=== PATIENT | female | born 1945 | race Caucasian/White ===

== ENCOUNTER 2018-08-31 13:31 | Inpatient (IN) | payer MEDICARE, OTHER, SELFPAY ==
[2018-08-31 13:32] VITALS: BP 204/107; PULSE 102; RESP 18; TEMP 37.1; O2SAT 93; BMI 21.2
--- NOTE | 2018-08-31 15:03 | EKG12_ITS ---
Test Reason : Blood Pressure : / mmHG Vent. Rate : 089 BPM Atrial Rate : 089 BPM P-R Int : 126 ms QRS Dur : 076 ms QT Int : 350 ms P-R-T Axes : 041 052 040 degrees QTc Int : 425 ms Normal sinus rhythm with sinus arrhythmia Low voltage QRS Cannot rule out Anterior infarct (cited on or before 01-FEB-2006) Abnormal ECG Confirmed by LORETA ALEX, MELIDA ([id number]), news copy editor KOKO DERAS ([id number]) on 09/02/2018 4:26:49 PM Referred By: JOSEF Confirmed By:MELIDA KAN MD
--- NOTE | 2018-08-31 15:09 | ED.VISSUMM ---
- ER Visit Summary Date of Service: 08/31/18 Chief Complaint: Shortness of breath History of Present Illness: The patient is a 73 F who noted swelling to her right leg approximately 6 months or so ago after twisting her foot in the yard. She states is progressively been getting worse. She now has swelling noted to the left lower leg also and has developed shortness of breath over the past month or so. Patient states she is now the point where she is unable to lie flat because of her shortness of breath. She notes swollen cyst to the bilateral axilla and states her lower abdomen at the groin lines is swollen and distended. She has not seen a doctor in many years and thinks her last blood pressure check was approximately 20 years ago. She denies taking any medications at this time. Physical Examination: Blood pressure is 204/107, temperature 98.7, heart rate 102, respiratory rate 18, pulse ox 93% on room air. Patient is sitting upright in bed. She is speaking full sentences and in no acute distress. Head neck examination is unremarkable. Heart is regular rate and rhythm. No lung sounds are slightly diminished at the bases. Abdomen is soft with mild distention. No focal tenderness. She has palpable masses noted at both groin lines. Upper extremity examination is significant for palpable masses at the axilla bilaterally. Lower extremity examination reveals 3+ edema to the right leg and 2+ edema to the left leg. Test Results: EKG is sinus 89 with no sign of acute ischemia studies unremarkable. LFTs significant only for an alk phos of 119. BNP and troponin are negative. TSH is normal. Chest x-ray shows bilateral effusions, greater than left. Small dense nodules noted in the right lower lobe. Emergency Department Course and Treatment: Repeat evaluation patient is resting comfortably. Blood pressure at this time is 136/79 without any intervention. I recommended hospitalization. Patient will likely need thoracentesis to drain the fluid on her left lung. She will then likely require imaging to ensure no masses in her chest, axilla, or groins. At this time patient has great difficulty lying flat secondary to her pleural effusion and I feel this can be done after her thoracentesis. Treatment Plan: [] Disposition: Admit Impression: 1. Left pleural effusion 2. Bilateral axillary and groin masses This note was generated with [employer] dictation software. It may contain incorrect words, spelling, and punctuation that were not noted in review of the chart prior to signing ED Disposition - Plan for ED Patient: Chief Complaint: Shortness of Breath Referrals: Care Physician,No Primary [Primary Care Provider] -
[2018-08-31] MEDS: 0.9% Normal Saline 1,000 ML 15 ML IV ×2 (15:12→22:42)
[2018-08-31 15:13] VITALS: BP 191/77; PULSE 91
--- NOTE | 2018-08-31 15:20 | RAD_ITS ---
STUDY: X-RAY CHEST REASON FOR EXAM: Female, 73 years old. Increasing shortness of breath TECHNIQUE: PA and lateral COMPARISON: None. FINDINGS: There is a large left pleural effusion and consolidation of the left lower lobe as well as mild consolidation of the left upper lobe. There is a smaller effusion on the right with mild right basilar consolidation.. There is a small nodular opacity in the right lower lobe which appears relatively dense likely granuloma Normal size heart. Normal mediastinum and marco. Normal visualized pulmonary arteries. Normal visualized aortic arch and descending thoracic aorta. Dorsal spine demonstrates mild spondylosis.. Normal visualized ribs, clavicles, and shoulders. There is no demonstrated abnormality of the visualized soft tissue structures of the upper abdomen. RAD/Chest PA and Lateral IMPRESSION: Bilateral effusions greater on the left with bibasilar consolidation. Small dense nodule in the right lower lobe most likely granulomatous process Electronically Signed: Martín Madrid MD at 16:41 EST , Service support ,
[2018-08-31 15:31] LABS: Absolute Lymphocyte Count 0.58 X10^3/ul (0.83-4.51); Absolute Neutrophil Count 4.9 X10^3/uL (2.0-7.7); Basophil# 0.02 X10^3/uL; Basophil% 0.3 % (0-1); Eosinophil# 0.03 X10^3/uL; Eosinophils% 0.5 % (0-5); Hematocrit 39.7 % (37-47); Hemoglobin 12.9 g/dl (12.0-15.0); Lymphocyte # 0.58 X10^3/ul (4.0); Lymphocyte % 9.6 % (19-41); Mean Corp Hgb Conc 32.5 g/gl (32-36); Mean Corpuscular Hgb 27.6 pg (27.0-32.0); Mean Corpuscular Volume 84.8 fL (81-99); Mean Platelet Vol. 9.4 fl (6.2-12.0); Monocyte# 0.52 X10^3/uL; Monocyte% 8.6 % (0-10); Neutrophil # 4.91 X10^3/uL (2.7-7.7); Neutrophil % 80.8 % (47-70); Platelet Count 277 K/mm3 (150-450); RBC Distribution Width CV 15.9 % (11.6-14.6); Red Blood Count 4.68 M/mm3 (4.2-5.4); White Blood Count 6.1 K/mm3 (4.4-11.0)
[2018-08-31 15:33] LABS: Differential Indicated SCAN CRITERIA MET; POSITIVE COUNT NO; POSITIVE DIFFERENTIAL YES; POSITIVE MORPHOLOGY NO
[2018-08-31 15:45] LABS: AST(SGOT) 16 U/L (15-37); Alanine Aminotransfer ALT/SGPT 12 U/L (13-56); Albumin, Serum 3.2 g/dL (3.2-5.0); Alkaline Phosphatase 119 U/L (45-117); Anion Gap 7 (5-15); BUN 17 mg/dL (7-18); BUN/Creat Ratio 19.9 RATIO (10-20); Bilirubin, Direct 0.21 mg/dL (0.00-0.30); Calcium,Total 8.4 mg/dL (8.5-10.1); Chloride 108 mmol/L (98-107); Creatinine, Serum 0.85 mg/dL (0.55-1.02); EST Glomerular Filtration Rate 69 mL/min (>60); Est Glom Filt Rate - Afr Amer 84 mL/min (>60); Estimated Creatinine Clearance 48.76 ml/min; Globulin 2.9 g/dL (2.2-4.2); Glucose 91 mg/dL (74-106); Potassium 3.7 mmol/L (3.5-5.1); Protein, Total 6.1 g/dL (6.4-8.2); Sodium Level 142 mmol/L (136-145)
[2018-08-31 16:10] LABS: Differential Comment SCANNED
[2018-08-31 16:27] LABS: BNP,B-Type NATRIURETIC PEPTIDE 26.6 pg/mL (0-100)
[2018-08-31 17:00] VITALS: BP 136/79; PULSE 90; RESP 26; O2SAT 92
--- NOTE | 2018-08-31 18:10 | PCM.HP.STD ---
<Tri Chester - Last Filed: 08/31/18 18:50> Problem List (1) Pleural effusion, left Status: Acute History of Present Illness Date of Admission: 08/31/18 Chief Complaint: Shortness of breath The patient is a 73 year old F who presents emergency room due to shortness of breath. She denies cough, fever, chills. Patient states this is been developing over the last few months, worsened in the last week. She states she has been resting on pillows or sitting in a recliner to sleep at night. She complains of swelling in the bilateral axial area with left axial tumor as well as pelvic area swelling. Patient also complains of bilateral lower extremity swelling. She denies calf pain. She has not seen a doctor in over 20 years. Has not had any routine breast examination/Pap test, etc. She notes a remote thyroid issue which she states resolved without surgery. Denies any prior medical history. She does not take any daily medications. 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 Denies: Chills, Fever HEENT: Denies: Head Aches, Sinus Congestion, Sinus Drainage Cardiovascular: Reports: Edema - BLLE. Denies: Chest Pain, Light Headedness, Palpitations, Syncope Respiratory: Reports: Shortness of Breath. Denies: Cough, Sputum production Gastrointestinal: Denies: Abdominal Pain, Nausea, Vomiting Genitourinary: Denies: Dysuria Musculoskeletal: Denies: Joint Pain, Joint Tenderness Skin: Denies: Rash, Wounds Neurological: Denies: Numbness, Tingling, Focal weakness Psychiatric: Denies: Anxiety, Depression, Homicidal Ideations, Suicidal Ideations Hematologic/ Lymphatic: Denies: Easy Bruising, Easy Bleeding VTE Information - Inpt Only VTE Present on Admission: No VTE Mechan Device Prophylaxis: None VTE Pharm Prophylaxis ordered?: Yes Patient Problems: Active and Suspected Problems Pleural effusion, left (Acute) - Physical Exam General: Alert, Oriented x3, Cooperative, No apparent distress HEENT: Atraumatic, PERRLA, EOMI, Normocephalic Neck: Supple, No JVD, Negative Carotid Bruits Lungs: Diminished Cardiovascular: Regular rate, Regular Rhythm, Normal S1, Normal S2, No murmurs Abdomen: Bowel Sounds Present, Soft, Non Tender, Distended - Mild Skin: No rashes, No breakdown Lymphatic: - - Palpable masses bilateral axillary, bilateral groin. Neurological: Cranial nerves II-XII grossly intact, Neuro grossly intact Psych/Mental Status: Normal Affect, Appropriate Vital Signs Temp Pulse Resp BP Pulse Ox 98.7 F 90 26 H 136/79 H 92 08/31/18 13:32 08/31/18 17:00 08/31/18 17:00 08/31/18 17:00 08/31/18 17:00 Oxygen Delivery Method Room Air Weight: 119 lb 14.903 oz Body Mass Index (BMI) 21.2 Laboratory Tests Past 24 Hrs 08/31/18 08/31/18 08/31/18 15:15 15:15 15:15 WBC 6.1 RBC 4.68 Hgb 12.9 Hct 39.7 MCV 84.8 MCH 27.6 MCHC 32.5 RDW 15.9 H RDW Differential 49.0 H Plt Count 277 MPV 9.4 Immature Gran % (Auto) 0.200 Neut % (Auto) 80.8 H Lymph % (Auto) 9.6 L [place] % (Auto) 8.6 Eos % (Auto) 0.5 Baso % (Auto) 0.3 Absolute Neuts (auto) 4.9 Absolute Lymphs (auto) 0.58 L Total Counted Not Reportable Differential Comment SCANNED Sodium 142 Potassium 3.7 Chloride 108 H Carbon Dioxide 27.0 Anion Gap 7 BUN 17 Creatinine 0.85 Estim Creat Clear Calc 48.76 Est GFR (MDRD) Af Amer 84 Est GFR (MDRD) Non-Af 69 BUN/Creatinine Ratio 19.9 Glucose 91 Calcium 8.4 L Total Bilirubin 0.80 Direct Bilirubin 0.21 AST 16 ALT 12 L Alkaline Phosphatase 119 H Troponin I < 0.015 B-Natriuretic Peptide 26.6 Total Protein 6.1 L Albumin 3.2 Globulin 2.9 TSH 1.70 Assessment/Plan All Active Problems Pleural effusion, left (Acute) 1. Left pleural effusion-chest x-ray on admission with bilateral effusions, greater on the left with bibasilar consolidation. Small dense nodule in the right lower lobe. Ultrasound-guided thoracentesis with lab studies to differentiate transudative versus exudative. Pulmonary consult. 2. Lower extremity swelling/bilateral axial and groin masses-CT of chest and abdomen/pelvis following thoracentesis when able to lie flat. Stat duplex bilateral lower extremities. 3. Hypertensive urgency-blood pressure greater than 200 systolically on admission. Improved. Continue to monitor. PRN hydralazine for systolic greater than 160. DVT prophylaxis-Lovenox subcu. This patient was seen by [place] Kline under the supervision of Dr. Prescott. <Mat Prescott - Last Filed: 08/31/18 21:41> History of Present Illness Patient is short of breath for last few months along with gradually increasing leg swelling. Leg swelling started with right leg which progressed proximally about 2-3 months ago. Her left leg started swelling for past 1 week. Patient is short of breath and cannot lay flat. Patient denies any previous history of DVT/PE or family history of hypercoagulable disorder. Denies chronic cardiac condition or lung disease. Has hypothyroidism. [] Past Medical History Allergies No Known Allergies Allergy (Verified 08/31/18 13:35) Review of Systems Constitutional: Reports: Weight Change - -15 lbs Lost about 15 pounds in last 6 months, - HEENT: Denies: Head Aches, Sinus Congestion, Sinus Drainage Cardiovascular: Reports: Edema Respiratory: Reports: Shortness of Breath, Shortness of breath upon exertion Gastrointestinal: Reports: Nausea Genitourinary: Reports: Dysuria Musculoskeletal: Reports: Joint Tenderness. Denies: Joint Pain Skin: Denies: Rash Neurological: Denies: Numbness, Tingling Psychiatric: Denies: Anxiety, Depression, Homicidal Ideations, Suicidal Ideations Hematologic/ Lymphatic: Denies: Easy Bruising, Easy Bleeding VTE Information - Inpt Only VTE Present on Admission: No VTE Mechan Device Prophylaxis: None VTE Pharm Prophylaxis ordered?: Yes - Physical Exam General: Alert, Oriented x3, Cooperative HEENT: Atraumatic, PERRLA, EOMI, Normocephalic Neck: Supple, No JVD, Negative Carotid Bruits Lungs: Diminished - Air entry severely diminished in left lung., - - Large left pleural effusion more than two third of left lung Cardiovascular: Regular rate, Regular Rhythm, Normal S1, Normal S2, No murmurs Abdomen: Bowel Sounds Present, Soft, Non Tender, Distended Extremities: Capillary Refill Less than 3 Seconds, Edema - Bilateral lower extremity edema, right lower extremity more than left. Skin: No rashes, No breakdown Musculoskeletal: No Tenderness to Palpation of Joints or Extremities, Arthritic Changes, Muscle Wasting Lymphatic: - Neurological: Cranial nerves II-XII grossly intact, Neuro grossly intact Psych/Mental Status: Normal Affect, Appropriate Vital Signs Temp Pulse Resp BP Pulse Ox 98.5 F 89 18 161/90 H 92 08/31/18 19:43 08/31/18 19:43 08/31/18 19:43 08/31/18 19:43 08/31/18 19:43 Oxygen Delivery Method Room Air Weight: 118 lb Body Mass Index (BMI) 20.9 Laboratory Tests Past 24 Hrs 08/31/18 08/31/18 08/31/18 15:15 15:15 15:15 WBC 6.1 RBC 4.68 Hgb 12.9 Hct 39.7 MCV 84.8 MCH 27.6 MCHC 32.5 RDW 15.9 H RDW Differential 49.0 H Plt Count 277 MPV 9.4 Immature Gran % (Auto) 0.200 Neut % (Auto) 80.8 H Lymph % (Auto) 9.6 L [place] % (Auto) 8.6 Eos % (Auto) 0.5 Baso % (Auto) 0.3 Absolute Neuts (auto) 4.9 Absolute Lymphs (auto) 0.58 L Total Counted Not Reportable Differential Comment SCANNED Sodium 142 Potassium 3.7 Chloride 108 H Carbon Dioxide 27.0 Anion Gap 7 BUN 17 Creatinine 0.85 Estim Creat Clear Calc 48.76 Est GFR (MDRD) Af Amer 84 Est GFR (MDRD) Non-Af 69 BUN/Creatinine Ratio 19.9 Glucose 91 Calcium 8.4 L Total Bilirubin 0.80 Direct Bilirubin 0.21 AST 16 ALT 12 L Alkaline Phosphatase 119 H Troponin I < 0.015 B-Natriuretic Peptide 26.6 Total Protein 6.1 L Albumin 3.2 Globulin 2.9 TSH 1.70 Assessment/Plan This patient was seen in conjunction with Tri CALL. I have independently interviewed and examined the patient and reviewed pertinent history, examination findings, laboratory and plan of management. I have reviewed the note and agree with the documented findings with the few additional points. In brief, this is a 23-year-old female with no significant past medical history except hypothyroidism was admitted for progressive worsening of shortness of breath, bilateral lower extremity edema, right more than left and loss of weight. Ultrasound-guided thoracocentesis with pleural fluid analysis. 2D echo ordered. Venous Doppler of lower extremities ordered. I agree with the CT chest, abdomen and pelvis with IV contrast after thoracocentesis in order to rule out cause for bilateral axillary and groin lymphadenopathy and pelvic swelling, concerning for malignancy. This was discussed with the patient's daughters present in the room. I have discussed my assessment with Tri CALL and orders have been reviewed. Code Visit Inpatient E&M: 99370 Init Hosp L3
[2018-08-31 18:14] VITALS: BMI 20.9
--- NOTE | 2018-08-31 18:48 | VDLE_ITS ---
Reason For Study: BLE SWELLING R>L RIGHT LEFT GSV is normal. GSV is normal. FV is compressible, spontaneous, phasic, CFV is compressible, spontaneous, phasic, competent and demonstrates normal competent, and demonstrates normal augmentation. augmentation. POP V is compressible, spontaneous, phasic, FV is compressible, spontaneous, phasic, competent and demonstrates normal competent and demonstrates normal augmentation. augmentation. T/P Trunk is compressible. POP V is compressible, spontaneous, phasic, PTV is compressible. competent and demonstrates normal RT PerV is compressible. augmentation. CFV is compressible, spontaneous, phasic, T/P Trunk is compressible. competent and demonstrates homegenous wall PTV is compressible. thickening. LT PerV is compressible. Vascular mass noted in LT groin measuring Vascular mass(s) noted in RT groin, measuring approx 1.9 x 0.7 cm. approx 2.8 x 1.3 cm & a second one measuring > 4.0 x 2.3 cm. Procedure Exam performed portable in patient room. The study was technically difficult. A preliminary report was called and/or faxed to [facility]. <> Interpretation Summary No evidence for acute deep venous thrombosis bilateral lower extremities with patent and compressible bilateral great saphenous veins. Probable bilateral groin adenopathy--clinical correlation is indicated Right groin: 2.8 x 1.3cm Left groin: 1.9 x 0.7 cm Ordering Physician: KY Kline Referring Physician: TWILA PCP Performed By: Antoinette Dobson RDCS, RVT
[2018-08-31 19:43] VITALS: BP 161/90; PULSE 89; RESP 18; TEMP 36.9; O2SAT 92
--- NOTE | 2018-08-31 21:31 | ECHOD_ITS ---
Reason For Study: LG LEFT EFFUSION Procedure This was a 2D Doppler, Color Flow transthoracic echocardiogram. Technically difficult- pt sitting upright for exam due to SOB. The study was technically difficult. Exam performed portable in patient room. Left Ventricle Normal LV size. Left ventricular systolic function is normal. The estimated ejection fraction is 65 %. No evidence for diastolic dysfunction. No regional wall motion abnormalities noted. Right Ventricle Normal RV size. Normal systolic function. Atria Normal left atrium. Normal right atrium. No doppler evidence for ASD. Mitral Valve There is no mitral annular calcification. Normal mitral valve. Trivial mitral valve insufficiency. Tricuspid Valve Normal tricuspid valve. Mild tricuspid valve insufficiency. Right ventricular systolic pressure estimated to be 49 mmHg. Aortic Valve The aortic valve is not well visualized. Pulmonic Valve The pulmonic valve is not well visualized. Great Vessels Normal sized aortic root. Pericardium/Pleural Small pericardial effusion. There are no echocardiographic indications of cardiac tamponade. Echolucency c/w a large pleural effusion. MMode/2D Measurements & Calculations LVIDd: 3.9 cm IVSd: 0.94 cm Ao root diam: 2.8 cm LVIDs: 2.2 cm LVPWd: 0.95 cm RVDd: 3.7 cm FS: 44.7 % LAV(MOD-bp): 34.5 ml LA A4 area: 14.3 cm2 LA dimension(2D): 2.6 cm LAV(MOD-bp) Indexed: 22.3 ml/m2 LAV(MOD-sp2): 35.4 ml LAV(MOD-sp4): 34.0 ml RA A4 area: 14.3 cm2 Time Measurements MV dec time: 0.26 sec Doppler Measurements & Calculations MV E max collins: 73.3 cm/sec Lat Peak E' Collins: 8.8 cm/sec Med Peak E' Collins: 8.7 cm/sec MV A max collins: 106.9 cm/sec E/E' lat: 8.4 E/E' med: 8.4 MV E/A: 0.69 Ao V2 max: 162.3 cm/sec AI max collins: 488.0 cm/sec TR max collins: 318.9 cm/sec Ao max P.5 mmHg AI max P.3 mmHg TR max P.7 mmHg AI dec slope: 407.9 cm/sec2 AI P1/2t: 350.4 msec Interpretation Summary The study was technically difficult. Left ventricular systolic function is normal. The estimated ejection fraction is 65 %. Trivial mitral valve insufficiency. Mild tricuspid valve insufficiency. Small pericardial effusion. There are no echocardiographic indications of cardiac tamponade. Echolucency c/w a large pleural effusion. Right ventricular systolic pressure estimated to be 49 mmHg c/w moderate pulmonary hypertension. No evidence for diastolic dysfunction. Ordering Physician: Mat Prescott Performed By: Ariane Goodrich, MIRIAN, RVT
[2018-08-31 22:00] VITALS: PULSE 108
[2018-08-31 23:18] LABS: D-Dimer Quantitative (DVT/PE) 1.86 FEU/ug/m (0.27-0.49)
[2018-09-01] VITALS (20 sets, daily range): BP systolic 136–180; BP diastolic 72–105; PULSE 90–112; RESP 16–24; TEMP 36.6–37.2; O2SAT 88–97
--- NOTE | 2018-09-01 | FLU_PTH ---
PATIENT: NINFA SAM LOC: [facility] U#:[id number] AGE/SX: 73/F ROOM: [facility] RE08/31/[address]: Dr. Faye Dunbar MD : 1945 BED: 1 DIS: 09/02/2018 SPEC #: [id number] RECD: 09/01/18 14:21 STATUS: MALIA CELE #: [id number] SAVANNA: 09/01/18 00:[address]: Donn Gutierres DEPT: CYTOLOGY RECD BY: Evaristo Syed ENTERED: 09/01/18 14:52 SP TYPE: Fluid OTHR DR: MD Dr. Mat David MD No Primary Care Phys Tissues: THORACIC FLUID Procedures: Special Stain Group II Surgery Specimen Level IV Cytospin Fluid HEADER OPERATION: Ultrasound-guided left thoracentesis PRE-OP DIAGNOSIS: Left-sided effusion TISSUE SUBMITTED: Thoracentesis fluid for cytology DIAGNOSIS CYTOLOGY Thoracentesis fluid for cytology (cytospin and cell block): Negative for malignant cells. AM:yolanda 09/02/18 CYTOLOGY STUDY Slides are reviewed. CYTOLOGY GROSS Received is 115 ml of cloudy yellow fluid labeled with the patient's name and and designated per the requisition as thoracentesis. Submitted for cytology preparation including cell block. / 09/01/18 TC:5 CPT: 15715, 84252
[2018-09-01] MEDS: HEPARIN/D5w 25,000 UNITS 25,000 UNITS/250 ML IV.SOLN. 8 UNITS IV (02:14)
[2018-09-01] MEDS: Acetaminophen 325 MG Tablet 650 MG PO (02:35)
[2018-09-01 02:36] LABS: International Normalized Ratio 1.1; Partial Thromboplast Time 29.3 Seconds (24.1-36.2); Prothrombin Time (Protime)PT. 14.3 SECONDS (11.7-14.9)
--- NOTE | 2018-09-01 03:33 | NURSING ---
Talked to Loly in Radiology. They do not have a schedule for ultrasound. They come in at 0730 and can be reached at [phone]. that will be doing the procedure does not come in until 0800.
[2018-09-01] MEDS: hydrALAZINE 20 MG/ML Vial IV (06:25)
--- NOTE | 2018-09-01 06:50 | NURSING ---
Pt's family states she is feeling SOB and not feeling well. I checked pt's oxygen level and it was 88% on room air. CPS followed me into the room and checked pt's lungs and applied oxygen at 2L via n/c. Sats dwight to mid 90's. Pt is up in recliner with family present in room. Pt is anxious and asking about thoracentesis procedure.
--- NOTE | 2018-09-01 06:59 | CPS ---
was called to room, pt c/o SOB, Sat of 88%, R.T. applied 2lpm O2, RN will recheck pulse-ox. RN helped pt in to a chair to get her in better breathing position.
[2018-09-01 07:42] LABS: International Normalized Ratio 1.1; Prothrombin Time (Protime)PT. 14.4 SECONDS (11.7-14.9)
[2018-09-01 07:47] LABS: ALB/GLOB Ratio 0.9 RATIO (0.9-2.4); Anion Gap 10 (5-15); BUN 14 mg/dL (7-18); BUN/Creat Ratio 19.2 RATIO (10-20); Calcium,Total 8.3 mg/dL (8.5-10.1); Chloride 110 mmol/L (98-107); Creatinine, Serum 0.73 mg/dL (0.55-1.02); EST Glomerular Filtration Rate 83 mL/min (>60); Est Glom Filt Rate - Afr Amer 100 mL/min (>60); Estimated Creatinine Clearance 41.45 ml/min; Globulin 3.1 g/dL (2.2-4.2); Glucose 134 mg/dL (74-106); LDH 316 U/L (84-246); Potassium 3.4 mmol/L (3.5-5.1); Sodium Level 143 mmol/L (136-145)
[2018-09-01 07:56] LABS: Hematocrit 40.6 % (37-47); Hemoglobin 13.4 g/dl (12.0-15.0); Mean Corpuscular Hgb 28.2 pg (27.0-32.0); Mean Corpuscular Volume 85.5 fL (81-99); Mean Platelet Vol. 10.1 fl (6.2-12.0); Platelet Count 316 K/mm3 (150-450); RBC Distribution Width CV 16.2 % (11.6-14.6); RBC Distribution Width SD 50.2 fl (35.1-43.9); Red Blood Count 4.75 M/mm3 (4.2-5.4); White Blood Count 7.6 K/mm3 (4.4-11.0)
[2018-09-01 08:14] LABS: Scan Indicated on CBC? Y/N NO
[2018-09-01 08:24] LABS: Partial Thromboplast Time 33.1 Seconds (24.1-36.2)
--- NOTE | 2018-09-01 08:48 | NURSING ---
Message left on answering machine, ECHO is completed and they can come up to do the ultrasound now.
--- NOTE | 2018-09-01 09:33 | NURSING ---
Per Antoinette from vascular, said no dvt, has vascular flow to marvin masses in marvin groin.
[2018-09-01] MEDS: Polyethylene Glycol 3350 17 GM PACKET PO (11:10)
--- NOTE | 2018-09-01 11:15 | CASEMGMT ---
RN KARLA Face to Face with patient for initial transition planning/care coordination assessment. RN CM introduced self and role at [facility]. Patient lying in bed, alert and oriented, daughters at bedside. Patient willing to participate in assessment and is able to answer all questions appropriately. Care providers, pharmacy, and demographics verified. Patient wishes to discharge home, denies need for home health at this time. Patient states she has no further needs or concerns at this time. CM to follow for discharge planning needs that may arise. PCP: None, list of PCP in [place] provided Specialists: None Preferred Pharmacy: [facility] Insurance: [facility] Prescription Benefit: Yes Living Will/HPOA: No, requested additional information LNOK: , daughters Living Arrangements: Patient lives with in 2 story with bed and bath on 1st floor. Patient independent at home. Transportation: or daughters DME/HHC: Patient denies DME at home. Will monitor for need for home oxygen and walker. Patient agreeablel to [employer] for DME Disposition Plan: Patient to discharge home with family support and follow-up plans in place. Will monitor for need for home oxygen. Carmina DOUGLAS, RN, CM
--- NOTE | 2018-09-01 11:19 | PCM.CONS.GEN ---
Problem List (1) Weight loss, non-intentional Status: Chronic (2) Pleural effusion, left Status: Acute Reason for Consult Date of Consultation: 09/01/18 Reason for Consultation: Pleural effusion History of Present Illness: The patient is a 73 year old F, with no reported past medical history, who presented to [facility] on 08/31/2018 secondary to shortness of breath and swelling of her right leg. Patient had originally attributed this to twisting her foot in the yard, but states that she has had progressing swelling of the right lower extremity. Patient had also noted increasing shortness of breath over the last month or so. Patient states currently she is having orthopnea and has noted some swelling in her groin lines. Patient has not seen a physician in several years and does not take any medications at baseline. On evaluation in the emergency room, patient was noted to have a blood pressure of 204/107, heart rate of 102 and 93% on room air. Patient was noted to have 3+ pitting edema of the right lower extremity and 2+ of the left lower extremity. Chest x-ray showed a large left-sided pleural effusion and possible nodules in the right lower lobe. Patient's blood pressure came down without acute intervention, but patient was admitted for possible thoracentesis. On my evaluation, patient reports she was somewhat improved compared to previous. Patient was on supplemental oxygen and felt this was making a difference. Patient reports that in retrospect she is probably had shortness of breath for several months. Patient states that she has had a dry type cough and a 10 pound weight loss over the last 3 months that was unintentional. Patient does have a fungating type mass noted in the left axilla. Patient is not having this evaluated by a physician. Patient states she had a similar one in her right axilla that fell off. Patient denies any previous pulmonary history. Patient denies any smoking history, PFT or being seen by a leaf tier. Patient is not used inhalers in the past. Patient does report a history of a breast cyst and mass that were resected in the past. Patient states these were not cancerous. She has not had a colonoscopy and reports years since her last mammogram. Patient denies any history of previous abnormal Pap smears. Review of systems otherwise negative x10 systems. Past Medical History Past Medical History (Chronic Problems): Chronic Problems Weight loss, non-intentional (Chronic) Allergies No Known Allergies Allergy (Verified 08/31/18 13:35) Home Medications: Ambulatory Orders Medication Instructions Recorded Acetaminophen [Tylenol] 162.5 mg PO PRN PRN 08/31/18 Surgical History: no surgical history Psychiatric History: No pertinent psych hx S[employer]ER [employer] PENCILS History: No pertinent S[employer] history Lives: Spouse/ Significant Other Smoking Status: Never smoker Alcohol: None Drugs: None - *Family History Maternal History Items: Diabetes Paternal History Items: Heart Disease Review of Systems Comment: See HPI, otherwise negative x10 systems. Patient Problems: Active and Suspected Problems Pleural effusion, left (Acute) Objective: Chest x-ray was personally reviewed and shows a large left pleural effusion and possible small nodules on the right. - Physical Exam General: Alert, Oriented x3, Cooperative, No apparent distress, - - Thin build. Speaking in full sentences. HEENT: Atraumatic, PERRLA, EOMI, Normocephalic, - - No scleral icterus or injection noted. Oral: Moist Mucosa, No Gingival or Mucosal Lesions/ Ulcerations Neck: Supple, No JVD, No Nodes, Trachea Midline Lungs: No rhonchi, No wheeze, No rales, Diminished, - - Dullness to percussion three quarters up left chest Cardiovascular: Regular rate, Regular Rhythm, Normal S1, Normal S2, No murmurs, No rub noted, No Gallop Abdomen: Bowel Sounds Present, Soft, Non Tender, Non-Distended Extremities: No clubbing, No cyanosis, Capillary Refill Less than 3 Seconds, Edema - Bilateral lower extremities, - - Rubbery, bilobular, fungating growth noted in left axilla approximately 8 cm x 4 cm. Nontender and no erythema appreciated. Skin: No rashes, No breakdown Musculoskeletal: No Tenderness to Palpation of Joints or Extremities, Muscle Wasting Lymphatic: No Cervical, Supraclavicular, or Inguinal Adenopathy Neurological: Cranial nerves II-XII grossly intact, Neuro grossly intact, Motor Exam 5/5 strength throughout Psych/Mental Status: Alert and oriented to time, place, person, mood and affect Vital Signs Temp Pulse Resp BP Pulse Ox 37.1 C 110 H 18 155/81 H 93 09/01/18 10:51 09/01/18 10:58 09/01/18 10:51 09/01/18 10:51 09/01/18 10:51 Oxygen Flow Rate (L/min) 2 Oxygen Delivery Method Nasal Cannula Weight: 53.5 kg Body Mass Index (BMI) 20.9 Intake and Output for Last 24 Hours 08/30/18 08/31/18 09/01/18 23:59 23:59 23:59 Intake Total 560 / 560 Output Total 600 / 600 Balance -40 / -40 Laboratory Tests Past 24 Hrs 08/31/18 08/31/18 08/31/18 15:15 15:15 15:15 WBC 6.1 RBC 4.68 Hgb 12.9 Hct 39.7 MCV 84.8 MCH 27.6 MCHC 32.5 RDW 15.9 H RDW Differential 49.0 H Plt Count 277 MPV 9.4 Immature Gran % (Auto) 0.200 Neut % (Auto) 80.8 H Lymph % (Auto) 9.6 L [place] % (Auto) 8.6 Eos % (Auto) 0.5 Baso % (Auto) 0.3 Absolute Neuts (auto) 4.9 Absolute Lymphs (auto) 0.58 L Total Counted Not Reportable Differential Comment SCANNED PT INR APTT D-Dimer Quant (PE/DVT) Sodium 142 Potassium 3.7 Chloride 108 H Carbon Dioxide 27.0 Anion Gap 7 BUN 17 Creatinine 0.85 Estim Creat Clear Calc 48.76 Est GFR (MDRD) Af Amer 84 Est GFR (MDRD) Non-Af 69 BUN/Creatinine Ratio 19.9 Glucose 91 Calcium 8.4 L Total Bilirubin 0.80 Direct Bilirubin 0.21 AST 16 ALT 12 L Alkaline Phosphatase 119 H Lactate Dehydrogenase Troponin I < 0.015 B-Natriuretic Peptide 26.6 Total Protein 6.1 L Albumin 3.2 Globulin 2.9 Albumin/Globulin Ratio TSH 1.70 08/31/18 09/01/18 09/01/18 22:57 02:08 06:54 WBC 7.6 RBC 4.75 Hgb 13.4 Hct 40.6 MCV 85.5 MCH 28.2 MCHC 33.0 RDW 16.2 H RDW Differential 50.2 H Plt Count 316 MPV 10.1 Immature Gran % (Auto) Neut % (Auto) Lymph % (Auto) [place] % (Auto) Eos % (Auto) Baso % (Auto) Absolute Neuts (auto) Absolute Lymphs (auto) Total Counted Differential Comment PT 14.3 INR 1.1 APTT 29.3 D-Dimer Quant (PE/DVT) 1.86 H* Sodium Potassium Chloride Carbon Dioxide Anion Gap BUN Creatinine Estim Creat Clear Calc Est GFR (MDRD) Af Amer Est GFR (MDRD) Non-Af BUN/Creatinine Ratio Glucose Calcium Total Bilirubin Direct Bilirubin AST ALT Alkaline Phosphatase Lactate Dehydrogenase Troponin I B-Natriuretic Peptide Total Protein Albumin Globulin Albumin/Globulin Ratio TSH 09/01/18 09/01/18 09/01/18 06:54 06:54 06:54 WBC RBC Hgb Hct MCV MCH MCHC RDW RDW Differential Plt Count MPV Immature Gran % (Auto) Neut % (Auto) Lymph % (Auto) [place] % (Auto) Eos % (Auto) Baso % (Auto) Absolute Neuts (auto) Absolute Lymphs (auto) Total Counted Differential Comment PT 14.4 INR 1.1 APTT 33.1 D-Dimer Quant (PE/DVT) Sodium 143 Potassium 3.4 L Chloride 110 H Carbon Dioxide 23.0 Anion Gap 10 BUN 14 Creatinine 0.73 Estim Creat Clear Calc 41.45 Est GFR (MDRD) Af Amer 100 Est GFR (MDRD) Non-Af 83 BUN/Creatinine Ratio 19.2 Glucose 134 H Calcium 8.3 L Total Bilirubin Direct Bilirubin AST ALT Alkaline Phosphatase Lactate Dehydrogenase 316 H Troponin I B-Natriuretic Peptide Total Protein 6.0 L Albumin Globulin 3.1 Albumin/Globulin Ratio 0.9 TSH Clinical Impression(s) from Imaging Studies Chest X-Ray 08/31/18 15:20 IMPRESSION: Bilateral effusions greater on the left with bibasilar consolidation. Small dense nodule in the right lower lobe most likely granulomatous process Electronically Signed: Martín Madrid MD at 16:41 EST , Service support , Assessment/Plan All Active Problems Pleural effusion, left (Acute) RECOMMENDATIONS: 1. Obtain thoracentesis 2. Wean oxygen as tolerated 3. Walking oximetry prior to discharge 4. Possible need for excision of left axillary mass 5. Outpatient pulmonary function testing 6. Possible outpatient appropriate cancer screening for age IMPRESSIONS: 1. Left pleural effusion Unclear etiology at this time. Patient has been lost to follow-up and has not seen a physician in several years. Patient is not had any screening exams. Will obtain a thoracentesis for diagnostic and therapeutic purposes. Wean oxygen as tolerated. Patient will need a walking oximetry prior to discharge. If exudative and cytology negative, excisional biopsy of left axillary mass may be necessary. If transudative, echocardiogram would likely be indicated along with right upper quadrant ultrasound. Given patient's weight loss, elevated alkaline phosphatase and left axillary mass, high clinical suspicion for possible malignancy. Further recommendations following thoracentesis. 2. Advanced age/lack of primary care/thin build/hypokalemia Complicates care, management, recovery and prognosis. Oral potassium supplementation would likely be adequate. Code Visit Inpatient E&M: 15622 Init Hosp L2
--- NOTE | 2018-09-01 11:25 | CON.PCM_ITS ---
Problem List (1) Weight loss, non-intentional Status: Chronic (2) Pleural effusion, left Status: Acute Reason for Consult Date of Consultation: 09/01/18 Reason for Consultation: Pleural effusion History of Present Illness: The patient is a 73 year old F, with no reported past medical history, who presented to [facility] on 08/31/2018 secondary to shortness of breath and swelling of her right leg. Patient had originally attributed this to twisting her foot in the yard, but states that she has had progressing swelling of the right lower extremity. Patient had also noted increasing shortness of breath over the last month or so. Patient states currently she is having orthopnea and has noted some swelling in her groin lines. Patient has not seen a physician in several years and does not take any medications at baseline. On evaluation in the emergency room, patient was noted to have a blood pressure of 204/107, heart rate of 102 and 93% on room air. Patient was noted to have 3+ pitting edema of the right lower extremity and 2+ of the left lower extremity. Chest x-ray showed a large left-sided pleural effusion and possible nodules in the right lower lobe. Patient's blood pressure came down without acute intervention, but patient was admitted for possible thoracentesis. On my evaluation, patient reports she was somewhat improved compared to previou s. Patient was on supplemental oxygen and felt this was making a difference. Patient reports that in retrospect she is probably had shortness of breath for several months. Patient states that she has had a dry type cough and a 10 pound weight loss over the last 3 months that was unintentional. Patient does have a fungating type mass noted in the left axilla. Patient is not having this evaluated by a physician. Patient states she had a similar one in her right axilla that fell off. Patient denies any previous pulmonary history. Patient denies any smoking history, PFT or being seen by a is project manager. Patient is not used inhalers in the past. Patient does report a history of a breast cyst and mass that were resected in the past. Patient states these were not cancerous. She has not had a colonoscopy and reports years since her last mammogram. Patient denies any history of previous abnormal Pap smears. Review of systems otherwise negative x10 systems. Past Medical History Past Medical History (Chronic Problems): Chronic Problems Weight loss, non-intentional (Chronic) Allergies No Known Allergies Allergy (Verified 08/31/18 13:35) Home Medications: Ambulatory Orders Medication Instructions Recorded Acetaminophen [Tylenol] 162.5 mg PO PRN PRN 08/31/18 Surgical History: no surgical history Psychiatric History: No pertinent psych hx IT SUPPORT MANAGER History: No pertinent IT SUPPORT MANAGER history Lives: Spouse/ Significant Other Smoking Status: Never smoker Alcohol: None Drugs: None - *Family History Maternal History Items: Diabetes Paternal History Items: Heart Disease Review of Systems Comment: See HPI, otherwise negative x10 systems. Patient Problems: Active and Suspected Problems Pleural effusion, left (Acute) Objective: Chest x-ray was personally reviewed and shows a large left pleural effusion and possible small nodules on the right. - Physical Exam General: Alert, Oriented x3, Cooperative, No apparent distress, - - Thin build. Speaking in full sentences. HEENT: Atraumatic, PERRLA, EOMI, Normocephalic, - - No scleral icterus or injection noted. Oral: Moist Mucosa, No Gingival or Mucosal Lesions/ Ulcerations Neck: Supple, No JVD, No Nodes, Trachea Midline Lungs: No rhonchi, No wheeze, No rales, Diminished, - - Dullness to percussion three quarters up left chest Cardiovascular: Regular rate, Regular Rhythm, Normal S1, Normal S2, No murmurs, No rub noted, No Gallop Abdomen: Bowel Sounds Present, Soft, Non Tender, Non-Distended Extremities: No clubbing, No cyanosis, Capillary Refill Less than 3 Seconds, Edema - Bilateral lower extremities, - - Rubbery, bilobular, fungating growth noted in left axilla approximately 8 cm x 4 cm. Nontender and no erythema appreciated. Skin: No rashes, No breakdown Musculoskeletal: No Tenderness to Palpation of Joints or Extremities, Muscle Wasting Lymphatic: No Cervical, Supraclavicular, or Inguinal Adenopathy Neurological: Cranial nerves II-XII grossly intact, Neuro grossly intact, Motor Exam 5/5 strength throughout Psych/Mental Status: Alert and oriented to time, place, person, mood and affect Vital Signs Temp Pulse Resp BP Pulse Ox 37.1 C 110 H 18 155/81 H 93 09/01/18 10:51 09/01/18 10:58 09/01/18 10:51 09/01/18 10:51 09/01/18 10:51 Oxygen Flow Rate (L/min) 2 Oxygen Delivery Method Nasal Cannula Weight: 53.5 kg Body Mass Index (BMI) 20.9 Intake and Output for Last 24 Hours 08/30/18 08/31/18 09/01/18 23:59 23:59 23:59 Intake Total 560 / 560 Output Total 600 / 600 Balance -40 / -40 Laboratory Tests Past 24 Hrs 08/31/18 08/31/18 08/31/18 15:15 15:15 15:15 WBC 6.1 RBC 4.68 Hgb 12.9 Hct 39.7 MCV 84.8 MCH 27.6 MCHC 32.5 RDW 15.9 H RDW Differential 49.0 H Plt Count 277 MPV 9.4 Immature Gran % (Auto) 0.200 Neut % (Auto) 80.8 H Lymph % (Auto) 9.6 L [place] % (Auto) 8.6 Eos % (Auto) 0.5 Baso % (Auto) 0.3 Absolute Neuts (auto) 4.9 Absolute Lymphs (auto) 0.58 L Total Counted Not Reportable Differential Comment SCANNED PT INR APTT D-Dimer Quant (PE/DVT) Sodium 142 Potassium 3.7 Chloride 108 H Carbon Dioxide 27.0 Anion Gap 7 BUN 17 Creatinine 0.85 Estim Creat Clear Calc 48.76 Est GFR (MDRD) Af Amer 84 Est GFR (MDRD) Non-Af 69 BUN/Creatinine Ratio 19.9 Glucose 91 Calcium 8.4 L Total Bilirubin 0.80 Direct Bilirubin 0.21 AST 16 ALT 12 L Alkaline Phosphatase 119 H Lactate Dehydrogenase Troponin I < 0.015 B-Natriuretic Peptide 26.6 Total Protein 6.1 L Albumin 3.2 Globulin 2.9 Albumin/Globulin Ratio TSH 1.70 08/31/18 09/01/18 09/01/18 22:57 02:08 06:54 WBC 7.6 RBC 4.75 Hgb 13.4 Hct 40.6 MCV 85.5 MCH 28.2 MCHC 33.0 RDW 16.2 H RDW Differential 50.2 H Plt Count 316 MPV 10.1 Immature Gran % (Auto) Neut % (Auto) Lymph % (Auto) [place] % (Auto) Eos % (Auto) Baso % (Auto) Absolute Neuts (auto) Absolute Lymphs (auto) Total Counted Differential Comment PT 14.3 INR 1.1 APTT 29.3 D-Dimer Quant (PE/DVT) 1.86 H* Sodium Potassium Chloride Carbon Dioxide Anion Gap BUN Creatinine Estim Creat Clear Calc Est GFR (MDRD) Af Amer Est GFR (MDRD) Non-Af BUN/Creatinine Ratio Glucose Calcium Total Bilirubin Direct Bilirubin AST ALT Alkaline Phosphatase Lactate Dehydrogenase Troponin I B-Natriuretic Peptide Total Protein Albumin Globulin Albumin/Globulin Ratio TSH 09/01/18 09/01/18 09/01/18 06:54 06:54 06:54 WBC RBC Hgb Hct MCV MCH MCHC RDW RDW Differential Plt Count MPV Immature Gran % (Auto) Neut % (Auto) Lymph % (Auto) [place] % (Auto) Eos % (Auto) Baso % (Auto) Absolute Neuts (auto) Absolute Lymphs (auto) Total Counted Differential Comment PT 14.4 INR 1.1 APTT 33.1 D-Dimer Quant (PE/DVT) Sodium 143 Potassium 3.4 L Chloride 110 H Carbon Dioxide 23.0 Anion Gap 10 BUN 14 Creatinine 0.73 Estim Creat Clear Calc 41.45 Est GFR (MDRD) Af Amer 100 Est GFR (MDRD) Non-Af 83 BUN/Creatinine Ratio 19.2 Glucose 134 H Calcium 8.3 L Total Bilirubin Direct Bilirubin AST ALT Alkaline Phosphatase Lactate Dehydrogenase 316 H Troponin I B-Natriuretic Peptide Total Protein 6.0 L Albumin Globulin 3.1 Albumin/Globulin Ratio 0.9 TSH Clinical Impression(s) from Imaging Studies Chest X-Ray 08/31/18 15:20 IMPRESSION: Bilateral effusions greater on the left with bibasilar consolidation. Small dense nodule in the right lower lobe most likely granulomatous process Electronically Signed: Martín Madrid MD at 16:41 EST , Service support , Assessment/Plan All Active Problems Pleural effusion, left (Acute) RECOMMENDATIONS: 1. Obtain thoracentesis 2. Wean oxygen as tolerated 3. Walking oximetry prior to discharge 4. Possible need for excision of left axillary mass 5. Outpatient pulmonary function testing 6. Possible outpatient appropriate cancer screening for age IMPRESSIONS: 1. Left pleural effusion Unclear etiology at this time. Patient has been lost to follow-up and has not seen a physician in several years. Patient is not had any screening exams. Will obtain a thoracentesis for diagnostic and therapeutic purposes. Wean oxygen as tolerated. Patient will need a walking oximetry prior to discharge. If exudative and cytology negative, excisional biopsy of left axillary mass may be necessary. If transudative, echocardiogram would likely be indicated along with right upper quadrant ultrasound. Given patient's weight loss, elevated alkaline phosphatase and left axillary mass, high clinical suspicion for possible malignancy. Further recommendations following thoracentesis. 2. Advanced age/lack of primary care/thin build/hypokalemia Complicates care, management, recovery and prognosis. Oral potassium supplementation would likely be adequate. Code Visit Inpatient E&M: 18207 Init Hosp L2
--- NOTE | 2018-09-01 13:49 | PN_ITS ---
Patient Problems: Active and Suspected Problems Pleural effusion, left (Acute) Subjective: Patient seen and examined. States she had episode of increased shortness of breath last night after leaving the restroom. Her oxygen was 80% at that time and she was placed on supplemental oxygen. She appears comfortable this morning. Notes continued shortness of breath while lying flat. - Physical Exam General: Alert, Oriented x3, Cooperative HEENT: Atraumatic, PERRLA, EOMI, Normocephalic Oral: Moist Mucosa Neck: Supple, No JVD, Negative Carotid Bruits Lungs: Clear to auscultation, Diminished Cardiovascular: Regular rate, Regular Rhythm, Normal S1, Normal S2, No murmurs Abdomen: Bowel Sounds Present, Soft, Non Tender, Non-Distended Extremities: No clubbing, No cyanosis, Capillary Refill Less than 3 Seconds, Edema - Bilateral lower extremity edema, right greater than left. Skin: No rashes, No breakdown, - - Left axillary mass. Musculoskeletal: No Tenderness to Palpation of Joints or Extremities Neurological: Cranial nerves II-XII grossly intact, Neuro grossly intact Psych/Mental Status: Normal Affect, Appropriate Vital Signs Temp Pulse Resp BP Pulse Ox 98.7 F 110 H 18 155/81 H 93 09/01/18 10:51 09/01/18 10:58 09/01/18 10:51 09/01/18 10:51 09/01/18 10:51 Oxygen Flow Rate (L/min) 2 Oxygen Delivery Method Nasal Cannula Weight: 117 lb 15.157 oz Body Mass Index (BMI) 20.9 Intake and Output for Last 24 Hours 08/30/18 08/31/18 09/01/18 23:59 23:59 23:59 Intake Total 560 / 560 Output Total 600 / 600 Balance -40 / -40 Laboratory Tests Past 24 Hrs 08/31/18 08/31/18 08/31/18 15:15 15:15 15:15 WBC 6.1 RBC 4.68 Hgb 12.9 Hct 39.7 MCV 84.8 MCH 27.6 MCHC 32.5 RDW 15.9 H RDW Differential 49.0 H Plt Count 277 MPV 9.4 Immature Gran % (Auto) 0.200 Neut % (Auto) 80.8 H Lymph % (Auto) 9.6 L [place] % (Auto) 8.6 Eos % (Auto) 0.5 Baso % (Auto) 0.3 Absolute Neuts (auto) 4.9 Absolute Lymphs (auto) 0.58 L Total Counted Not Reportable Differential Comment SCANNED PT INR APTT D-Dimer Quant (PE/DVT) Sodium 142 Potassium 3.7 Chloride 108 H Carbon Dioxide 27.0 Anion Gap 7 BUN 17 Creatinine 0.85 Estim Creat Clear Calc 48.76 Est GFR (MDRD) Af Amer 84 Est GFR (MDRD) Non-Af 69 BUN/Creatinine Ratio 19.9 Glucose 91 Calcium 8.4 L Total Bilirubin 0.80 Direct Bilirubin 0.21 AST 16 ALT 12 L Alkaline Phosphatase 119 H Lactate Dehydrogenase Troponin I < 0.015 B-Natriuretic Peptide 26.6 Total Protein 6.1 L Albumin 3.2 Globulin 2.9 Albumin/Globulin Ratio TSH 1.70 08/31/18 09/01/18 09/01/18 22:57 02:08 06:54 WBC 7.6 RBC 4.75 Hgb 13.4 Hct 40.6 MCV 85.5 MCH 28.2 MCHC 33.0 RDW 16.2 H RDW Differential 50.2 H Plt Count 316 MPV 10.1 Immature Gran % (Auto) Neut % (Auto) Lymph % (Auto) [place] % (Auto) Eos % (Auto) Baso % (Auto) Absolute Neuts (auto) Absolute Lymphs (auto) Total Counted Differential Comment PT 14.3 INR 1.1 APTT 29.3 D-Dimer Quant (PE/DVT) 1.86 H* Sodium Potassium Chloride Carbon Dioxide Anion Gap BUN Creatinine Estim Creat Clear Calc Est GFR (MDRD) Af Amer Est GFR (MDRD) Non-Af BUN/Creatinine Ratio Glucose Calcium Total Bilirubin Direct Bilirubin AST ALT Alkaline Phosphatase Lactate Dehydrogenase Troponin I B-Natriuretic Peptide Total Protein Albumin Globulin Albumin/Globulin Ratio TSH 09/01/18 09/01/18 09/01/18 06:54 06:54 06:54 WBC RBC Hgb Hct MCV MCH MCHC RDW RDW Differential Plt Count MPV Immature Gran % (Auto) Neut % (Auto) Lymph % (Auto) [place] % (Auto) Eos % (Auto) Baso % (Auto) Absolute Neuts (auto) Absolute Lymphs (auto) Total Counted Differential Comment PT 14.4 INR 1.1 APTT 33.1 D-Dimer Quant (PE/DVT) Sodium 143 Potassium 3.4 L Chloride 110 H Carbon Dioxide 23.0 Anion Gap 10 BUN 14 Creatinine 0.73 Estim Creat Clear Calc 41.45 Est GFR (MDRD) Af Amer 100 Est GFR (MDRD) Non-Af 83 BUN/Creatinine Ratio 19.2 Glucose 134 H Calcium 8.3 L Total Bilirubin Direct Bilirubin AST ALT Alkaline Phosphatase Lactate Dehydrogenase 316 H Troponin I B-Natriuretic Peptide Total Protein 6.0 L Albumin Globulin 3.1 Albumin/Globulin Ratio 0.9 TSH Medical Necessity - Tobacco Use Smoking Status: Never smoker Assessment/Plan All Active Problems Pleural effusion, left (Acute) 1. Left pleural effusion/Acute hypoxia-chest x-ray on admission with bilateral effusions, greater on the left with bibasilar consolidation. Small dense nodule in the right lower lobe. Ultrasound-guided thoracentesis with lab studies to differentiate transudative versus exudative, pending. Pulmonary consult. Further workup pending thoracentesis. Continue supplement oxygen to maintain O2 sat above 90%. 2. Lower extremity swelling/bilateral axial and groin masses, unclear etiology- CT of chest and abdomen/pelvis following thoracentesis when able to lie flat. Duplex ultrasound negative for DVT. Echocardiogram pending. Recommend biopsy left axillary mass, it is possible this can be completed as outpatient pending above workup. 3. Hypertensive urgency-blood pressure greater than 200 systolically on admission. Improved. Continue to monitor. PRN hydralazine for systolic greater than 160. DVT prophylaxis-Heparin subcu. This patient was seen by [place] [facility] under the supervision of Dr. Gutierres.
--- NOTE | 2018-09-01 14:01 | RAD_ITS ---
STUDY: X-RAY CHEST REASON FOR EXAM: Female, 73 years old. The patient is status post left thoracentesis. TECHNIQUE: AP inspiration and expiration views were obtained. COMPARISON: Comparison is made with prior study dated August 31, 2018. FINDINGS: EKG electrodes are seen. The patient is status post left thoracentesis. Residual pleural-parenchymal changes are seen in the left hemithorax. This has improved. There is no evidence of pneumothorax. Mild pleural parenchymal changes at the right lung base. RAD/Chest Insp/Exp 2 View IMPRESSION: Status post left thoracentesis. There is no evidence of pneumothorax. Electronically Signed: Chris Alfaro MD at 15:00 EST Tel [phone], Service support ,
[2018-09-01 14:37] LABS: Cytology, Body Fluid / CSF SEE PATHOLOGY REPORT
[2018-09-01 14:51] LABS: Body Fluid Mononuclear WBC # 0.318 10^3/uL; Body Fluid Mononuclear WBC % 92.4 %; Body Fluid Polynuclear WBC # 0.026 10^3/uL; Body Fluid Polynuclear WBC % 7.6 %; Body Fluid Total Cells Counted 0.368 10^3/ul (0.000-0.000); White Blood Count/Body Fluid 0.344 10^3/uL
[2018-09-01 15:09] LABS: Glucose, Body Fluid 125 mg/dL (40-70); LDH,Body Fluid 185 Units/l (Not Establ.); Protein, Body Fluid 3.6 g/dL (Not Establ.)
[2018-09-01 15:24] LABS: Auto B Fluid Analyzer BKGD Ct COUNTS W/IN LIMITS (W/IN LIMITS)
[2018-09-01 15:25] LABS: Appearance/Body Fluid CLEAR; Color/Body Fluid YELLOW; Red Cell Count/Body Fluid 451 /mm3; Source- Body Fluid THORACENTESIS
[2018-09-01 15:43] LABS: Body Fluid QC Type(s) BF1Q; Lymphocytes 67 %; Macrophages 3 %; Mesothelial Cells 10 %; Monocytes 1 %; Neutrophil (Segs) 19 %
--- NOTE | 2018-09-01 17:14 | CHAPLAIN ---
Type of Pastoral Visit _x__ Initial Visit ___ Follow-up Visit ___ On-call Visit ___ General Patient Visit ___ Spiritual Assessment ___ Family Conference ___ Bereavement ___ Rapid Response ___ Code Blue ___ Other (describe below) Pastoral Care Referral From _x__ Patient ___ Family ___ Nurse ___ Physician ___ Final Installer Inspector ___ Mri Tech ___ Other (describe below) Sacrament/Intervention _x__ Active listening ___ Anointing ___ Scientologist ___ Bereavement ___ Communion _x__ Victoria exploration ___ _x__ Life review _x__ Prayer ___ Reconciliation ___ Sacrament of Sick _x__ Supportive presence ___ Wedding ___ Other (describe below) Pastoral Comments patient has specific questions about her victoria and lutheran participation; family members present at this time as well
--- NOTE | 2018-09-01 18:45 | US_ITS ---
PROCEDURE: ULTRASOUND GUIDED THORACENTESIS. DATE: September 01, 2018. INDICATION: Female, 73 years old. Left pleural effusion PHYSICIAN: Chris Alfaro M.D. PROCEDURE: The risks, benefits, and alternatives to the procedure were explained to the patient. The specific risks of bleeding, infection, and pneumothorax requiring chest tube insertion were discussed and accepted. Written informed consent was obtained. Ultrasonographic evaluation of the left lower pleural space was carried out. An adequate pocket was identified. The patient was placed in the sitting, upright position. The overlying skin was prepped and draped in sterile fashion. 1% lidocaine was administered subcutaneously for local anesthesia. Under ultrasound guidance, a 5 Pashto thoracentesis needle/catheter system was advanced into the left posterior lower pleural fluid collection. Approximately 1070 mL of macy-colored fluid was drained. The catheter was removed, and a sterile dressing was applied. A specimen was collected and sent to the laboratory for analysis, as requested by the referring clinician. The patient tolerated the procedure well. A chest x-ray was ordered. US/Thoracentesis W US IMPRESSION: Ultrasound-guided left thoracentesis. Electronically Signed: Chris Alfaro MD at 14:26 EST Tel [phone], Service support ,
[2018-09-02] VITALS (11 sets, daily range): BP systolic 137–144; BP diastolic 74–83; PULSE 82–99; RESP 16–18; TEMP 36.7–37.1; O2SAT 87–92
[2018-09-02 06:36] LABS: Anion Gap 7 (5-15); BUN 16 mg/dL (7-18); BUN/Creat Ratio 23.1 RATIO (10-20); Calcium,Total 8.1 mg/dL (8.5-10.1); Chloride 113 mmol/L (98-107); Creatinine, Serum 0.69 mg/dL (0.55-1.02); EST Glomerular Filtration Rate 88 mL/min (>60); Est Glom Filt Rate - Afr Amer 107 mL/min (>60); Estimated Creatinine Clearance 41.45 ml/min; Glucose 102 mg/dL (74-106); Potassium 4.1 mmol/L (3.5-5.1); Sodium Level 145 mmol/L (136-145)
[2018-09-02] MEDS: Polyethylene Glycol 3350 17 GM PACKET PO (10:05)
--- NOTE | 2018-09-02 10:21 | PCM.DC ---
- Discharge Diagnoses Current Active Problems: Current Active and Chronic Problems Pleural effusion, left (Acute) Weight loss, non-intentional (Chronic) You will use the following diet at home:: No restrictions, Other - Recommend ensure 3-4 times daily. Discharge Activity: Return to Normal Activity Call your doctor if you observe: Shortness of breath, Dizziness, Fainting spells, Chest pain Allergies/Adverse Reactions: Allergies No Known Allergies Allergy (Verified 08/31/18 13:35) Medications to take at Discharge Acetaminophen [Tylenol] 162.5 mg PO PRN PRN 08/31/18 Albuterol Inhaler [Ventolin Hfa] 1 - 2 puff INHALATION Q4H PRN PRN #1 inhaler 09/02/18 The following prescriptions were given: Albuterol Inhaler [Ventolin Hfa] 1 - 2 puff INHALATION Q4H PRN PRN #1 inhaler PRN Reason: Shortness Of Breath Test Results: Test results from this visit will be discussed in further detail at your follow-up appointment, if applicable. Please Follow Up With: Mikey Diamond MD - Call to establish with Primary Care Provider When: 1 Week Please Follow Up With: Carina Ross NP-C - Pulmonary Medicine When: 09/04/18 at 2:15pm Proposed Discharge Date: 09/02/18
--- NOTE | 2018-09-02 10:25 | DCINST_ITS ---
- Discharge Diagnoses Current Active Problems: Current Active and Chronic Problems Pleural effusion, left (Acute) Weight loss, non-intentional (Chronic) You will use the following diet at home:: No restrictions, Other - Recommend ensure 3-4 times daily. Discharge Activity: Return to Normal Activity Call your doctor if you observe: Shortness of breath, Dizziness, Fainting spells, Chest pain Allergies/Adverse Reactions: Allergies No Known Allergies Allergy (Verified 08/31/18 13:35) Medications to take at Discharge Acetaminophen [Tylenol] 162.5 mg PO PRN PRN 08/31/18 Albuterol Inhaler [Ventolin Hfa] 1 - 2 puff INHALATION Q4H PRN PRN #1 inhaler 09/02/18 The following prescriptions were given: Albuterol Inhaler [Ventolin Hfa] 1 - 2 puff INHALATION Q4H PRN PRN #1 inhaler PRN Reason: Shortness Of Breath Test Results: Test results from this visit will be discussed in further detail at your follow- up appointment, if applicable. Please Follow Up With: Mikey Diamond MD - Call to establish with Primary Care Provider When: 1 Week Please Follow Up With: Carina Ross NP-C - Pulmonary Medicine When: 09/04/18 at 2:15pm Proposed Discharge Date: 09/02/18
--- NOTE | 2018-09-02 10:39 | DS.PCM_ITS ---
<[facility] - Last Filed: 09/02/18 11:45> Discharge Date and Diagnosis Date of Admission: 08/31/18 Date of Discharge: 09/02/18 - Primary Discharge Diagnosis Active and Suspected Problems 1. Left pleural effusion with lymphocytic exudative pleural fluid 2. Acute hypoxia, secondary to #1 3. Multiple masses including left axillary, bilateral pelvis-suspicious for malignancy 4. Hypertensive urgency, resolved 5. Moderate to severe protein calorie malnutrition - Secondary Discharge Diagnosis Chronic Problems Weight loss, non-intentional (Chronic) Hospital Course and Treatment Imaging Results: Diagnostic Data Chest X-Ray 09/01/18 14:01 IMPRESSION: Status post left thoracentesis. There is no evidence of pneumothorax. Electronically Signed: Chris Alfaro MD at 15:00 EST Tel [phone], Service support , Thoracentesis Ultrasound 09/01/18 18:45 IMPRESSION: Ultrasound-guided left thoracentesis. Electronically Signed: Chris Alfaro MD at 14:26 EST Tel [phone], Service support , Dr. Norman- Pulmonary Operations: None Procedures: 2-D Echocardiogram Summary of Care Provided: The patient is a 73 year old F admitted 08/31/2018 due to shortness of breath. 1. Left pleural effusion/Acute hypoxia-chest x-ray on admission with bilateral effusions, greater on the left with bibasilar consolidation. Small dense nodule in the right lower lobe. Ultrasound-guided thoracentesis completed, fluid preliminary showing lymphocytic exudative. Pulmonary consulted. Final lab studies pending. Patient will follow up with pulmonary medicine on 09/04/2018 for further results and recommended plan of care. Patient required supplemental oxygen with ambulation. She is ambulatory in the home. She will be discharged with home oxygen, to maintain O2 at or above 90%. Instructed patient to obtain pulse oximeter for further monitoring at home. 2. Lower extremity swelling/bilateral axial and groin masses, unclear etiology- Duplex ultrasound negative for DVT. Echocardiogram showed an EF of 65%, small pericardial effusion, no indications of cardiac tamponade, RVSP estimated to be 49 mmHg, no evidence of diastolic dysfunction.. Recommend biopsy left axillary mass, this can be completed as outpatient. 3. Hypertensive urgency-blood pressure greater than 200 systolically on admission. Resolved. 4. Moderate to severe protein calorie malnutrition-recommend continued ensure supplementation 3-4 times daily. General: Alert, Oriented x3, Cooperative HEENT: Atraumatic, PERRLA, EOMI, Normocephalic Oral: Moist Mucosa Neck: Supple, No JVD, Negative Carotid Bruits Lungs: Clear to auscultation, Diminished Cardiovascular: Regular rate, Regular Rhythm, Normal S1, Normal S2, No murmurs Abdomen: Bowel Sounds Present, Soft, Non Tender, Non-Distended Extremities: No clubbing, No cyanosis, Capillary Refill Less than 3 Seconds, Edema - Bilateral lower extremity edema, right greater than left. Skin: No rashes, No breakdown, Left axillary mass, bilateral groin/pelvic masses. Musculoskeletal: No Tenderness to Palpation of Joints or Extremities Neurological: Cranial nerves II-XII grossly intact, Neuro grossly intact Psych/Mental Status: Normal Affect, Appropriate Patient seen and examined prior to discharge. Physical assessment as noted above. Patient stable for discharge home with close follow-up as noted above. This patient was seen by [facility] under the supervision of Dr. Dunbar. - Physical Exam Vital Signs Temp Pulse Resp BP Pulse Ox 98.1 F 99 16 140/75 H 90 09/02/18 10:06 09/02/18 10:06 09/02/18 10:06 09/02/18 10:06 09/02/18 10:06 Oxygen Flow Rate (L/min) [5] 2 Oxygen Flow Rate (L/min) [4] 2 Oxygen Flow Rate (L/min) [3] 2 Oxygen Flow Rate (L/min) [2] 2 Oxygen Flow Rate (L/min) [1 ( 2 Initial Baseline)] Oxygen Flow Rate (L/min) 2 Oxygen Delivery Method [5] Nasal Cannula Oxygen Delivery Method [4] Nasal Cannula Oxygen Delivery Method [3] Nasal Cannula Oxygen Delivery Method [2] Nasal Cannula Oxygen Delivery Method [1 ( Nasal Cannula Initial Baseline)] Oxygen Delivery Method Room Air Weight: 117 lb 15.157 oz Body Mass Index (BMI) 20.9 Intake and Output for Last 24 Hours 08/31/18 09/01/18 09/02/18 23:59 23:59 23:59 Intake Total 560 / 560 700 / 700 Output Total 600 / 600 Balance -40 / -40 700 / 700 Laboratory Tests Past 24 Hrs 09/01/18 09/01/18 09/01/18 13:30 13:30 13:30 Sodium Potassium Chloride Carbon Dioxide Anion Gap BUN Creatinine Estim Creat Clear Calc Est GFR (MDRD) Af Amer Est GFR (MDRD) Non-Af BUN/Creatinine Ratio Glucose Calcium Fluid Source THORACENTESIS Fluid Color YELLOW Fluid Appearance CLEAR Fluid pH Pending Fluid WBC 0.344 Fluid RBC 451 Fluid Tot Cell Count 0.368 H Fld Polynuclear WBCs # 0.026 Fld Polynuclear WBCs % 7.6 Fluid Mononuclear WBCs 0.318 Fld Mononuclear WBCs % 92.4 Fluid Neutrophils 19 Fluid Lymphocytes 67 Fluid Monocytes 1 Fluid Macrophages 3 Fld Mesothelial Cells 10 Fl Pathologist Comment May follow Fluid Glucose 125 H Fluid Total Protein 3.6 Fluid LDH 185 Fluid Comment 2 SEE COMMENT Miscellaneous Cytology 09/01/18 09/02/18 13:30 05:48 Sodium 145 Potassium 4.1 Chloride 113 H Carbon Dioxide 25.0 Anion Gap 7 BUN 16 Creatinine 0.69 Estim Creat Clear Calc 41.45 Est GFR (MDRD) Af Amer 107 Est GFR (MDRD) Non-Af 88 BUN/Creatinine Ratio 23.1 H Glucose 102 Calcium 8.1 L Fluid Source Fluid Color Fluid Appearance Fluid pH Fluid WBC Fluid RBC Fluid Tot Cell Count Fld Polynuclear WBCs # Fld Polynuclear WBCs % Fluid Mononuclear WBCs Fld Mononuclear WBCs % Fluid Neutrophils Fluid Lymphocytes Fluid Monocytes Fluid Macrophages Fld Mesothelial Cells Fl Pathologist Comment Fluid Glucose Fluid Total Protein Fluid LDH Fluid Comment 2 Miscellaneous Cytology Pending Discharge Diet: No Restrictions Discharge Activity: Return to Normal Activity Call your doctor if you observe: Shortness of breath, Dizziness, Fainting spells, Chest pain Home Medications: Medications to take at Discharge Acetaminophen [Tylenol] 162.5 mg PO PRN PRN 08/31/18 Albuterol Inhaler [Ventolin Hfa] 1 - 2 puff INHALATION Q4H PRN PRN #1 inhaler 09/02/18 Following Prescrptions Were Given to Patient: Albuterol Inhaler [Ventolin Hfa] 1 - 2 puff INHALATION Q4H PRN PRN #1 inhaler PRN Reason: Shortness Of Breath Primary Care Physician: Care Physician,No Primary [Primary Care Provider] - Please Follow Up With: Mikey Diamond MD - Call to establish with Primary Care Provider When: 1 Week Please Follow Up With: Carina Ross NP-C - Pulmonary Medicine When: 09/04/18 at 2:15pm Disposition: Home Minutes spent on discharge:: 35 Patient Condition:: Fair Medical Necessity - Tobacco Use Smoking Status: Never smoker Meaningful Use Info Meaningful Use Diagnoses (Choose all that apply): None applicable <Faye Dunbar - Last Filed: 09/02/18 16:19> Discharge Date and Diagnosis - Secondary Discharge Diagnosis Chronic Problems Weight loss, non-intentional (Chronic) Hospital Course and Treatment Summary of Care Provided: Patient seen by [facility] under my supervision. The patient is a 73 year old F admitted through the ED with a complaint of SOB, which had been ojngoing for the last few months and worsened in the last week. She had associted left axillary tumour as well as pelvic area swelling nad bilateral LE swelling. She was admitted and managed for shortness of breath due to left pleural effusion.CXR on admission showed bilateral effusions, greater on the left, with bibasilar consolidation. Duplex of her LEs were negative. She had thoracentesis[]. Analysis of effusion showed it was an exudate and lymphocytre predominant, therefore suggestive of malignancy. Pulmo was consutled. Cytology was still pending at time of discharge. She was to have CT chest, abdomen and pelvis to look for suitable biopsy locations. She was counselled that she may need further thoracentesis as there ws still fluid left in chest after thoracentesis. She was discharged home on 09/02/18, to follow up with her PCP and pulmonology. She also had hypertensive urgency which resolved with treatment. She was discharged with home oxygen and counseled to obtain a pulse oximeter. Patient seen and examined prior to discharge. she was still short of breath, but felt better. Had no fever or chills, and only coplaied of dyspnea on exertion. Review of systems was otherwise negative. o/e: Vital Signs Height 5 ft 3 in Weight: 117 lb 15.157 oz Weight in Pounds 117.9 lbs Pulse Ox [AMBULATION with 90 Oxygen] Pulse Ox [AMBULATING on Room 87 Air] Pulse Ox [At REST on Room Air] 89 Pulse Ox 92 Temperature 98.5 F Pulse Rate [5] 95 Pulse Rate [4] 93 Pulse Rate [3] 98 Pulse Rate [2] 103 Pulse Rate [1 (Initial 98 Baseline)] Pulse Rate 87 Respiratory Rate [5] 16 Respiratory Rate [4] 16 Respiratory Rate [3] 16 Respiratory Rate [2] 16 Respiratory Rate [1 (Initial 16 Baseline)] Respiratory Rate 18 Blood Pressure [BP] 158/91 Blood Pressure [5] 136/74 Blood Pressure [4] 147/73 Blood Pressure [3] 148/75 Blood Pressure [2] 143/77 Blood Pressure [1 (Initial 144/76 Baseline)] Blood Pressure 137/83 Blood Pressure Position Semi-Fowlers General: Alert, Oriented x3, Cooperative HEENT: Atraumatic, PERRLA, EOMI, Normocephalic Oral: Moist Mucosa Neck: Supple, No JVD, Negative Carotid Bruits Lungs: Clear to auscultation, Diminished Cardiovascular: Regular rate, Regular Rhythm, Normal S1, Normal S2, No murmurs Abdomen: Bowel Sounds Present, Soft, Non Tender, Non-Distended Extremities: No clubbing, No cyanosis, Capillary Refill Less than 3 Seconds, Edema - Bilateral lower extremity edema, right greater than left. Skin: No rashes, No breakdown, - - Left axillary mass. Musculoskeletal: No Tenderness to Palpation of Joints or Extremities Neurological: Cranial nerves II-XII grossly intact, Neuro grossly intact Psych/Mental Status: Normal Affect, Appropriate Plan as described above. 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 - Physical Exam Vital Signs Temp Pulse Resp BP Pulse Ox 98.5 F 87 18 137/83 H 92 09/02/18 13:32 09/02/18 13:32 09/02/18 13:32 09/02/18 13:32 09/02/18 13:32 Oxygen Flow Rate (L/min) [5] 2 Oxygen Flow Rate (L/min) [4] 2 Oxygen Flow Rate (L/min) [3] 2 Oxygen Flow Rate (L/min) [2] 2 Oxygen Flow Rate (L/min) [1 ( 2 Initial Baseline)] Oxygen Flow Rate (L/min) [ 2 AMBULATION with Oxygen] Oxygen Flow Rate (L/min) 2 Oxygen Delivery Method [5] Nasal Cannula Oxygen Delivery Method [4] Nasal Cannula Oxygen Delivery Method [3] Nasal Cannula Oxygen Delivery Method [2] Nasal Cannula Oxygen Delivery Method [1 ( Nasal Cannula Initial Baseline)] Oxygen Delivery Method Room Air Weight: 117 lb 15.157 oz Body Mass Index (BMI) 20.9 Intake and Output for Last 24 Hours 08/31/18 09/01/18 09/02/18 23:59 23:59 23:59 Intake Total 560 / 560 700 / 700 Output Total 600 / 600 Balance -40 / -40 700 / 700 Microbiology Past 72 Hours 09/01/18 13:30 Gram Stain - Final Fluid - Thoracentesis Fluid Body Fluid Culture - Preliminary No growth-Final to follow Laboratory Tests Past 24 Hrs 09/01/18 09/01/18 09/02/18 13:30 13:30 05:48 Sodium 145 Potassium 4.1 Chloride 113 H Carbon Dioxide 25.0 Anion Gap 7 BUN 16 Creatinine 0.69 Estim Creat Clear Calc 41.45 Est GFR (MDRD) Af Amer 107 Est GFR (MDRD) Non-Af 88 BUN/Creatinine Ratio 23.1 H Glucose 102 Calcium 8.1 L Fl Pathologist Comment Reviewed Miscellaneous Cytology SEE PATHOLOGY REPORT Code Visit Inpatient E&M: 77251 Disch Hosp
[2018-09-02 13:43] LABS: Pathologist Comment/Body Fluid Reviewed
--- NOTE | 2018-09-02 13:47 | PCM.PROGNOTE ---
Patient Problems: Active and Suspected Problems Pleural effusion, left (Acute) Subjective: Patient feels subjectively improved compared to yesterday. Patient denies any dyspnea at rest. Some dyspnea on exertion, but patient states this is much improved. No productive cough is reported. Objective: Echocardiogram was personally reviewed. This showed an EF of 65% with no diastolic dysfunction. Right ventricular systolic pressure noted to be at 49 mmHg. - Physical Exam General: Alert, Oriented x3, Cooperative, No apparent distress, - - Appears older than stated age. No conversational dyspnea. HEENT: Atraumatic, PERRLA, EOMI, Normocephalic, - - No scleral icterus or injection noted. Oral: Moist Mucosa, No Gingival or Mucosal Lesions/ Ulcerations Neck: Supple, No JVD, No Nodes, Trachea Midline Lungs: No rhonchi, No wheeze, No rales, Diminished - Left base. Dullness to percussion in the area. Cardiovascular: Regular rate, Regular Rhythm, Normal S1, Normal S2, No murmurs, No rub noted, No Gallop Abdomen: Bowel Sounds Present, Soft, Non Tender, Non-Distended Extremities: No clubbing, No cyanosis, Capillary Refill Less than 3 Seconds, Edema Skin: - - No significant change Musculoskeletal: Muscle Wasting Lymphatic: No Cervical, Supraclavicular, or Inguinal Adenopathy Neurological: Cranial nerves II-XII grossly intact, Neuro grossly intact, Motor Exam 5/5 strength throughout Psych/Mental Status: Alert and oriented to time, place, person, mood and affect Vital Signs Temp Pulse Resp BP Pulse Ox 36.9 C 87 18 137/83 H 92 09/02/18 13:32 09/02/18 13:32 09/02/18 13:32 09/02/18 13:32 09/02/18 13:32 Oxygen Flow Rate (L/min) [5] 2 Oxygen Flow Rate (L/min) [4] 2 Oxygen Flow Rate (L/min) [3] 2 Oxygen Flow Rate (L/min) [2] 2 Oxygen Flow Rate (L/min) [1 ( 2 Initial Baseline)] Oxygen Flow Rate (L/min) [ 2 AMBULATION with Oxygen] Oxygen Flow Rate (L/min) 2 Oxygen Delivery Method [5] Nasal Cannula Oxygen Delivery Method [4] Nasal Cannula Oxygen Delivery Method [3] Nasal Cannula Oxygen Delivery Method [2] Nasal Cannula Oxygen Delivery Method [1 ( Nasal Cannula Initial Baseline)] Oxygen Delivery Method Room Air Weight: 53.5 kg Body Mass Index (BMI) 20.9 Intake and Output for Last 24 Hours 08/31/18 09/01/18 09/02/18 23:59 23:59 23:59 Intake Total 560 / 560 700 / 700 Output Total 600 / 600 Balance -40 / -40 700 / 700 Microbiology Past 72 Hours 09/01/18 13:30 Gram Stain - Final Fluid - Thoracentesis Fluid Body Fluid Culture - Preliminary No growth-Final to follow Laboratory Tests Past 24 Hrs 09/01/18 09/01/18 09/01/18 13:30 13:30 13:30 Sodium Potassium Chloride Carbon Dioxide Anion Gap BUN Creatinine Estim Creat Clear Calc Est GFR (MDRD) Af Amer Est GFR (MDRD) Non-Af BUN/Creatinine Ratio Glucose Calcium Fluid Source THORACENTESIS Fluid Color YELLOW Fluid Appearance CLEAR Fluid pH Pending Fluid WBC 0.344 Fluid RBC 451 Fluid Tot Cell Count 0.368 H Fld Polynuclear WBCs # 0.026 Fld Polynuclear WBCs % 7.6 Fluid Mononuclear WBCs 0.318 Fld Mononuclear WBCs % 92.4 Fluid Neutrophils 19 Fluid Lymphocytes 67 Fluid Monocytes 1 Fluid Macrophages 3 Fld Mesothelial Cells 10 Fl Pathologist Comment Reviewed Fluid Glucose 125 H Fluid Total Protein 3.6 Fluid LDH 185 Fluid Comment 2 SEE COMMENT Miscellaneous Cytology 09/01/18 09/02/18 13:30 05:48 Sodium 145 Potassium 4.1 Chloride 113 H Carbon Dioxide 25.0 Anion Gap 7 BUN 16 Creatinine 0.69 Estim Creat Clear Calc 41.45 Est GFR (MDRD) Af Amer 107 Est GFR (MDRD) Non-Af 88 BUN/Creatinine Ratio 23.1 H Glucose 102 Calcium 8.1 L Fluid Source Fluid Color Fluid Appearance Fluid pH Fluid WBC Fluid RBC Fluid Tot Cell Count Fld Polynuclear WBCs # Fld Polynuclear WBCs % Fluid Mononuclear WBCs Fld Mononuclear WBCs % Fluid Neutrophils Fluid Lymphocytes Fluid Monocytes Fluid Macrophages Fld Mesothelial Cells Fl Pathologist Comment Fluid Glucose Fluid Total Protein Fluid LDH Fluid Comment 2 Miscellaneous Cytology Pending Clinical Impression(s) from Imaging Studies Chest X-Ray 09/01/18 14:01 IMPRESSION: Status post left thoracentesis. There is no evidence of pneumothorax. Electronically Signed: Chris Alfaro MD at 15:00 EST Tel [phone], Service support , Thoracentesis Ultrasound 09/01/18 18:45 IMPRESSION: Ultrasound-guided left thoracentesis. Electronically Signed: Chris Alfaro MD at 14:26 EST Tel [phone], Service support , Medical Necessity - Tobacco Use Smoking Status: Never smoker Assessment/Plan All Active Problems Pleural effusion, left (Acute) RECOMMENDATIONS: 1. Await cytology 2. Wean oxygen as tolerated 3. Walking oximetry prior to discharge 4. Possible referral to surgery for excisional biopsy 5. Outpatient pulmonary function testing 6. Possible outpatient appropriate cancer screening for age IMPRESSIONS: 1. Left exudative pleural effusion Patient with exudative left pleural effusion. Lymphocyte predominance suggestive of malignancy. Await the cytology. Patient may require CT of the chest abdomen and pelvis to look for suitable biopsy locations. Patient still has significant fluid left in the chest following thoracentesis, so cannot exclude the need for repeat in the near future. Patient was advised to obtain a pulse oximeter for home. Patient should follow-up in our office early next week for review of test results. 2. Advanced age/lack of primary care/thin build/hypokalemia Complicates care, management, recovery and prognosis. Oral potassium supplementation would likely be adequate. Code Visit Inpatient E&M: 30028 [facility] [place] Hosp L2
--- OUTSIDE RECORDS SUMMARY | 2018-10-13 13:45 | XMS RPT_ITS ---
:1945 Author Organization [place] Support Name Relationship Address Phone JULIA ROB Unavailable [address] + [place] [address] TUNDE SAM Unavailable [address]99 [address] + [address] [place] [address] R Unavailable Unavailable Unavailable FUNK, ROB Unavailable [address] + [place] [address] TUNDE SAM Unavailable 14972 TR 16 + [address] [place] [address] R Unavailable Unavailable Unavailable FUNK, ROB Unavailable [address] + [place] [address] TUNDE SAM Unavailable 93482 TR 16 + [address] [place] [address] R Unavailable Unavailable Unavailable FUNK, ROB Unavailable [address] + [place] [address] TUNDE SAM Unavailable 44771 TR 16 + [address] [place] [address] R Unavailable Unavailable Unavailable FUNK, ROB Unavailable [address] + [place] [address] TUNDE SAM Unavailable 62258 TR 16 + [address] [place] [address] R Unavailable Unavailable Unavailable FUNK, ROB Unavailable [address] + [place] [address] TUNDE SAM Unavailable 70578 TR 16 + [address] [place] [address] R Unavailable Unavailable Unavailable FUNK, ROB Unavailable [address] + [place] [address] TUNDE SAM Unavailable 77897 TR 16 + [address] [place] [address] R Unavailable Unavailable Unavailable FUNK, ROB Unavailable [address] + [place] [address] TUNDE SAM Unavailable 82722 TR 16 + [address] [place] [address] R Unavailable Unavailable Unavailable FUNK, ROB Unavailable [address] + [place] [address] LINTUNDE Harrell Unavailable 74509 TR 16 + [address] [place] [address] R Unavailable Unavailable Unavailable FUNK, ROB Unavailable [address] + [place] [address] TUNDE SAM Unavailable 48065 TR 16 + [address] [place] [address] R Unavailable Unavailable Unavailable FUNK, ROB Unavailable [address] + [place] [address] TUNDE SAM Unavailable 12873 TR 16 + [address] [facility] [place] [place] [address] R Unavailable Unavailable Unavailable FUNK, ROB Unavailable [address] + [place] [address] TUNDE SAM Unavailable 26034 TR 16 + [address] [facility] [place] [place] [address] R Unavailable Unavailable Unavailable FUNK, ROB Unavailable [address] + [place] [address] TUNDE SAM Unavailable 34407 TR 16 + [address] [place] [address] R Unavailable Unavailable Unavailable FUNK, ROB Unavailable [address] + [place] [address] TUNDE SAM Unavailable 32605 TR 16 + [address] [facility] [place] [place] [address] R Unavailable Unavailable Unavailable FUNK, ROB Unavailable [address] + [place] [address] TUNDE SAM Unavailable 84220 TR 16 + [address] [place] [address] R Unavailable Unavailable Unavailable FUNK, ROB Unavailable [address] + [place] [address] TUNDE SAM Unavailable 33933 TR 16 + [address] [place] [address] R Unavailable Unavailable Unavailable FUNK, ROB Unavailable [address] + [place] [address] LINSharri, TUNDE Unavailable 94241 [address] 16 + [address] [place] [address] R Unavailable Unavailable Unavailable FUNK, ROB Unavailable [address] + [place] [address] LINSharri, TUNDE Unavailable 75949 TR 16 + [address] [place] [address] R Unavailable Unavailable Unavailable FUNK, ROB Unavailable [address] + [place] [address] LINT, TUNDE Unavailable 02576 TR 16 + [address] [place] [address] R Unavailable Unavailable Unavailable FUNK, ROB Unavailable [address] + [place] [address] LINSharri, TUNDE Unavailable 33571 TR 16 + [address] [facility] [place] [address] R Unavailable Unavailable Unavailable FUNK, ROB Unavailable [address] + [place] [address] LINTUNDE Harrell Unavailable 01011 TR 16 + [address] [place] [address] R Unavailable Unavailable Unavailable FUNK, ROB Unavailable [address] + [place] [address] LINTUNDE Harrell Unavailable 65462 TR 16 + [address] [place] [address] R Unavailable Unavailable Unavailable FUNK, ROB Unavailable [address] + [place] [address] TUNDE SAM Unavailable 52269 TR 16 + [address] [place] [address] R Unavailable Unavailable Unavailable FUNK, ROB Unavailable [address] + [place] [address] TUNDE SAM Unavailable 14692 [address] + [place] [address] R Unavailable Unavailable Unavailable FUNK, ROB Unavailable [address] + [place] [address] LINT, TUNDE Unavailable [address]35 [address] + [place] [address] R Unavailable Unavailable Unavailable FUNK, ROB Unavailable [address] [facility] [address] + [place] [address] LINT, TUNDE Unavailable 43812 [address] + [place] [address] R Unavailable Unavailable Unavailable FUNK, ROB Unavailable [address] + [place] [address] LINT, TUNDE Unavailable [address]3567 [address] + [place] [address] R Unavailable Unavailable Unavailable FUNK, ROB Unavailable [address] + [place] [address] LINT, TUNDE Unavailable [address]3365 [address] + [place] [address] R Unavailable Unavailable Unavailable FUNK, ROB Unavailable [address] + [place] [address] LINT, TUNDE Unavailable 32638 TR 16 + [address] [place] [address] R Unavailable Unavailable Unavailable FUNK, ROB Unavailable [address] + [place] [address] LINT, TUNDE Unavailable 61786 TR 16 + [address] [place] [address] R Unavailable Unavailable Unavailable FUNK, ROB Unavailable [address] + [place] [address] LINT, TUNDE Unavailable 59068 [address] + [place] [address] R Unavailable Unavailable Unavailable FUNK, ROB Unavailable [address] + [place] [address] LINT, TUNDE Unavailable 26626 TR 16 + [address] [place] [address] R Unavailable Unavailable Unavailable FUNK, ROB Unavailable [address] + [place] [address] LINT, TUNDE Unavailable [address]35 [address] + [place] [address] R Unavailable Unavailable Unavailable FUNK, ROB Unavailable [address] [facility] [address] + [place] [address] TUNDE SAM Unavailable 62901 TR 16 + [address] [place] [address] R Unavailable Unavailable Unavailable FUNK, ROB Unavailable [address] [facility] + [place] [address] TUNDE SAM Unavailable 65030 TR 16 + [address] [place] [address] R Unavailable Unavailable Unavailable Care Team Providers Name Role Phone Ashelfah, Ghasem Admitting Unavailable Isckarus, Mansour Attending Unavailable Ashelfah, Ghasem Referring Unavailable Oleghe, Efewongbe Primary Care Unavailable Guicho Greenberg D.O. Consulting Unavailable Isckarus, Mansour Consulting Unavailable Ashelfah, Ghasem Consulting Unavailable Ashelfah, Ghasem Admitting Unavailable Junaid Norman Attending Unavailable Ashelfah, Ghasem Referring Unavailable Oleghe, Efewongbe Primary Care Unavailable Guicho Greenberg D.O. Consulting Unavailable Isckarus, Mansour Consulting Unavailable Ashelfah, Ghasem Consulting Unavailable Ashelfah, Ghasem Admitting Unavailable Ashelfah, Ghasem Attending Unavailable Ashelfah, Ghasem Referring Unavailable Oleghe, Efewongbe Primary Care Unavailable Guicho Greenberg D.O. Consulting Unavailable Isckarus, Mansour Consulting Unavailable Ashelfah, Ghasem Consulting Unavailable Ashelfah, Ghasem Admitting Unavailable Junaid Norman Attending Unavailable Ashelfah, Ghasem Referring Unavailable Oleghe, Efewongbe Primary Care Unavailable Guicho Greenbegr D.O. Consulting Unavailable Isckarus, Mansour Consulting Unavailable Ashelfah, Ghasem Consulting Unavailable Ashelfah, Ghasem Admitting Unavailable Ashelfah, Ghasem Attending Unavailable Ashelfah, Ghasem Referring Unavailable Oleghe, Efewongbe Primary Care Unavailable Guicho Greenberg D.O. Consulting Unavailable Isckarus, Mansour Consulting Unavailable Ashelfah, Ghasem Consulting Unavailable Ashelfah, Ghasem Admitting Unavailable Junaid Norman Attending Unavailable Ashelfah, Ghasem Referring Unavailable Oleghe, Efewongbe Primary Care Unavailable Guicho Greenberg D.O. Consulting Unavailable Isckarus, Mansour Consulting Unavailable Ashelfah, Ghasem Consulting Unavailable Ashelfah, Ghasem Admitting Unavailable Isckarus, Mansour Attending Unavailable Ashelfah, Ghasem Referring Unavailable Oleghe, Efewongbe Primary Care Unavailable Guicho Greenberg D.O. Consulting Unavailable Isckarus, Mansour Consulting Unavailable Ashelfah, Ghasem Consulting Unavailable Ashelfah, Ghasem Admitting Unavailable Ashelfah, Ghasem Attending Unavailable Ashelfah, Ghasem Referring Unavailable Oleghe, Efewongbe Primary Care Unavailable Guicho Greenberg D.O. Consulting Unavailable Isckarus, Mansour Consulting Unavailable Ashelfah, Ghasem Consulting Unavailable Ashelfah, Ghasem Admitting Unavailable Bi Garcia Attending Unavailable Ashelfah, Ghasem Referring Unavailable Oleghe, Efewongbe Primary Care Unavailable Guicho Greenberg D.O. Consulting Unavailable Isckarus, Mansour Consulting Unavailable Calabretta, Bi Consulting Unavailable Ashelfah, Ghasem Consulting Unavailable Ashelfah, Ghasem Admitting Unavailable Junaid Norman Attending Unavailable Ashelfah, Ghasem Referring Unavailable Oleghe, Efewongbe Primary Care Unavailable Guicho Greenberg D.O. Consulting Unavailable Isckarus, Mansour Consulting Unavailable Calabretta, Bi Consulting Unavailable Ashelfah, Ghasem Consulting Unavailable Ashelfah, Ghasem Admitting Unavailable Ashelfah, Ghasem Attending Unavailable Ashelfah, Ghasem Referring Unavailable Oleghe, Efewongbe Primary Care Unavailable Guicho Greenberg D.O. Consulting Unavailable Isckarus, Mansour Consulting Unavailable Calabretta, Bi Consulting Unavailable Ashelfah, Ghasem Consulting Unavailable Ashelfah, Ghasem Admitting Unavailable Dexter Garciaony Attending Unavailable Ashelfah, Ghasem Referring Unavailable Oleghe, Efewongbe Primary Care Unavailable Guicho Greenberg D.O. Consulting Unavailable Isckarus, Mansour Consulting Unavailable Calabretta, Bi Consulting Unavailable Ashelfah, Ghasem Consulting Unavailable Ashelfah, Ghasem Admitting Unavailable Junaid Norman Attending Unavailable Ashelfah, Ghasem Referring Unavailable Oleghe, Efewongbe Primary Care Unavailable Guicho Greenberg D.O. Consulting Unavailable Isckarus, Mansour Consulting Unavailable Calabretta, Bi Consulting Unavailable Ashelfah, Ghasem Consulting Unavailable Ashelfah, Ghasem Admitting Unavailable Bi Garcia Attending Unavailable Ashelfah, Ghasem Referring Unavailable Oleghe, Efewongbe Primary Care Unavailable Guicho Greenberg D.O. Consulting Unavailable Rogeriokarus, Jonnyour Consulting Unavailable Bi Garcia Consulting Unavailable Ashelfah, Ghasem Consulting Unavailable Primay Care Physicia, No Primary Care Unavailable [facility] Admitting Unavailable Emerson, Junaid Consulting Unavailable Koram, Faye Carolyn Attending Unavailable [facility] Admitting Unavailable Primay Care Physicia, No Primary Care Unavailable Emerson, Junaid Consulting Unavailable [facility], Mat Attending Unavailable [facility], Mat Consulting Unavailable [facility], [facility] Admitting Unavailable [facility] Physicia, No Primary Care Unavailable Emerson, Junaid Consulting Unavailable Tereletsky, Donn Attending Unavailable Tereletsky, Donn Consulting Unavailable [facility] Admitting Unavailable Emerson, Junaid Attending Unavailable [facility] Physicia, No Primary Care Unavailable Emerson, Junaid Consulting Unavailable Tereletsky, Donn Consulting Unavailable [facility] Admitting Unavailable Primay Care Physicia, No Primary Care Unavailable Emerson, Junaid Consulting Unavailable Koram, Faye Carolyn Attending Unavailable Koram, Faye Carolyn Consulting Unavailable [facility], [facility] Admitting Unavailable Emerson, Junaid Attending Unavailable [facility] Physicia, No Primary Care Unavailable Emerson, Junaid Consulting Unavailable Koram, Faye Carolyn Consulting Unavailable Oleghe, Efewongbe Attending Unavailable [facility] Physicia, No Referring Unavailable Carina Ross Attending Unavailable [facility] Physicia, No Referring Unavailable Ross, Carina Attending Unavailable Ross, Carina Referring Unavailable Primay Care Physicia, No Primary Care Unavailable Oleghe, Efewongbe Attending Unavailable Oleghe, Efewongbe Referring Unavailable Oleghe, Efewongbe Primary Care Unavailable Rogeriokarus, Jonnyour Attending Unavailable Radha, Bi Primary Care Unavailable Dexter Garciaony Attending Unavailable Oleghe, Efewongbe Referring Unavailable Ashelfah, Ghasem Admitting Unavailable Ashelfah, Ghasem Attending Unavailable Ashelfah, Ghasem Referring Unavailable Oleghe, Efewongbe Primary Care Unavailable Guicho Greenberg D.O. Consulting Unavailable Rogeriokarus, Mansour Consulting Unavailable Bi Garcia Consulting Unavailable Ashelfah, Ghasem Consulting Unavailable Eric, Jacob Chi Admitting Unavailable Eric, Jacob Chi Attending Unavailable Oleghe, Efewongbe Primary Care Unavailable Ashelfah, Ghasem Admitting Unavailable Junaid Norman Attending Unavailable Ashelfah, Ghasem Referring Unavailable Oleghe, Efewongbe Primary Care Unavailable Guicho Greenberg D.O. Consulting Unavailable Isckarus, Mansour Consulting Unavailable Calabretta, Bi Consulting Unavailable Ashelfah, Ghasem Consulting Unavailable Je Kan Attending Unavailable Donn Gutierres Referring Unavailable Isckarus, Mansour Attending Unavailable Oleghe, Efewongbe Primary Care Unavailable Isckarus, Mansour Consulting Unavailable Oleghe, Efewongbe Primary Care Unavailable Ashelfah, Ghasem Admitting Unavailable Ashelfah, Ghasem Attending Unavailable Ashelfah, Ghasem Referring Unavailable Guicho Greenberg D.O. Consulting Unavailable Isckarus, Mansour Consulting Unavailable Calabretta, Bi Consulting Unavailable Ashelfah, Ghasem Admitting Unavailable Ashelfah, Ghasem Attending Unavailable Ashelfah, Ghasem Referring Unavailable Oleghe, Efewongbe Primary Care Unavailable Ashelfah, Ghasem Consulting Unavailable Ashelfah, Ghasem Admitting Unavailable Ashelfah, Ghasem Attending Unavailable Ashelfah, Ghasem Referring Unavailable Oleghe, Efewongbe Primary Care Unavailable Guicho Greenberg D.O. Consulting Unavailable Isckarus, Mansour Consulting Unavailable Ashelfah, Ghasem Consulting Unavailable Joe Miranda Attending Unavailable [place] [facility] Referring Unavailable PROBLEMS PROBLEMS DATE TYPE CONDITION / CODE ATTENDING STATUS SOURCE 09/22/2018 Unknown R53.81 - Other Eric, Jacob Chi Active [facility] malaise / Community R53.81(ICD-10) Hospital Repository 09/16/2018 Unknown R19.00 - Isckarus, Active [place] [facility]dominal and [facility] Community pelvic swelling, Hospital mass and lump, Repository unspecified site / R19.00(ICD-10) 09/16/2018 Unknown J90 - Pleural Isckarus, Active [place] effusion, not Mans[place] Community elsewhere classified Hospital / J90(ICD-10) Repository 09/16/2018 Unknown Z98.890 - Other Isckarus, Active [facility] specified [facility] postprocedural Hospital states / Repository Z98.890(ICD-10) 09/16/2018 Unknown R59.1 - Generalized Isckarus, Active [place] enlarged lymph nodes [facility] / R59.1(ICD-10) Hospital Repository 09/16/2018 Unknown R89.7 - Abnormal Isckarus, Active [place] histological [facility] findings in Hospital specimens from other Repository organs, systems and tissues / R89.7(ICD-10) 09/04/2018 Unknown R59.0 - Localized Ross, Active [place] enlarged lymph nodes [facility] / R59.0(ICD-10) Hospital Repository 09/04/2018 Unknown R19.09 - Other Oleghe, Active [place] intra-abdominal and Efewongbe [facility] pelvic swelling, Hospital mass and lump / Repository R19.09(ICD-10) 09/14/2018 Unknown M79.89 - Other Joe Miranda Active [facility] specified soft [facility] tissue disorders / Hospital M79.89(ICD-10) Repository PROCEDURES PROCEDURES No Procedure Records FoundRESULTS RESULTS 12 LEAD ELECTROCARDIOGRAM Observed: 09/21/2018 Status: F Source: [place] 7:49 AM [facility] REPOSITORY [facility] Cardiovascular Services [address] [place] [address] 12 Lead EKG 09/17/182008 MR#: [id number] Acct: [id number] Name: NINFA SAM Rep #: [id number] : 1945 73 From: Dirk Soto MD Attending Dr: Kamryn Prince Status: DIS IN Ordering Dr: Kamryn Prince MD Date: 09/17/18 Location: [facility] Sex: F C Admitted: 09/13/18 Test Reason : PAIN Blood Pressure : / mmHG Vent. Rate : 094 BPM Atrial Rate : 094 BPM P-R Int : 118 ms QRS Dur : 080 ms QT Int : 338 ms P-R-T Axes : 043 065 061 degrees QTc Int : 422 ms Normal sinus rhythm with sinus arrhythmia Normal ECG When compared with ECG of 13-SEP-2018 12:26, No significant change was found Confirmed by JORGE ALEX, DIRK ([id number]), newspaper or periodical editor RACHELLE VALERO ([id number]) on 09/21/2018 7:49:38 AM Referred By: Kamryn Prince Confirmed By:DIRK SOTO MD 09/21/18 0749 Date Dirk Soto MD CC: Mikey Diamond MD; Kamryn Prince Signed 12 LEAD ELECTROCARDIOGRAM Observed: 09/21/2018 Status: F Source: KIP 7:47 AM [facility] Cardiovascular Services [address] [place] [address] 12 Lead EKG 09/18/18 0433 MR#: [id number] Acct: [id number] Name: NINFA SAM Rep #: [id number] : 1945 73 From: Dirk Soto MD Attending Dr: Kamryn Prince Status: DIS IN Ordering Dr: Bi Garcia MD Date: 09/18/18 Location: [facility] Sex: F C Admitted: 09/13/18 Test Reason : AM Blood Pressure : / mmHG Vent. Rate : 083 BPM Atrial Rate : 083 BPM P-R Int : 136 ms QRS Dur : 082 ms QT Int : 360 ms P-R-T Axes : 065 063 057 degrees QTc Int : 423 ms Normal sinus rhythm with sinus arrhythmia Possible Anterior infarct , age undetermined Abnormal ECG When compared with ECG of 17-SEP-2018 20:09, MANUAL COMPARISON REQUIRED, DATA IS UNCONFIRMED Confirmed by JORGE ALEX, DIRK ([id number]), newspaper or periodical editor RACHELLE VALERO ([id number]) on 09/21/2018 7:47:40 AM Referred By: Kamryn Prince Confirmed By:DIRK SOTO MD 09/21/18 0747 Date iDrk Soto MD CC: Bi Garcia MD; Mikey Diamond MD; Kamryn Prince Signed CBC W/DIFF, AUTOMATED Collected: 09/20/2018 Status: F Source: [place] 7:58 AM [facility] REPOSITORY TYPE CODE TESTS RESULT OUT OF RANGE REFERENCE UNITS LAB L100.1000 4.4-11.0 K/mm3 Normal WBC 6.3 LAB L100.1200 4.2-5.4 M/mm3 Low RBC 4.16 LAB L100.1300 12.0-15.0 g/dl Low HGB 11.7 LAB L100.1400 37-47 % Low HCT 36.4 LAB L100.1500 81-99 fL Normal MCV 87.5 LAB L100.1600 27.0-32.0 pg Normal MCH 28.1 LAB L100.1700 32-36 g/gl Normal MCHC 32.1 LAB L100.1810 11.6-14.6 % High RDW CV 16.4 LAB L100.1820 35.1-43.9 fl High RDW SD 51.2 LAB L100.1900 150-450 K/mm3 Normal PLT 284 LAB L100.2000 6.2-12.0 fl Normal MPV 10.7 LAB L100.2100 47-70 % High NEUT% 82.2 LAB L100.2200 19-41 % Low LY% 8.5 LAB L100.2300 0-10 % Normal MONO% 8.1 LAB L100.2400 0-5 % Normal EO% 0.6 LAB L100.2500 0-1 % Normal BASO% 0.3 LAB L100.2550 0.0-0.9 % Normal IM GRAN % 0.300 Result Comment: IG% - Immature Granulocytes (promyelocytes, myelocytes and metamyelocytes) > 1% indicates that a LEFT SHIFT is Present. LAB L100.2620 2.0-7.7 X10 3/uL Normal Absolute Neut 5.2 LAB L100.2720 0.83-4.51 X10 3/ul Low Absolute Lymph 0.53 Performed By: #### L100.0100 #### [facility] [address]. [place], [place], [id number] BASIC METABOLIC Collected: 09/20/2018 Status: F Source: [place] PROFILE (BMP) 7:58 AM [facility] REPOSITORY TYPE CODE TESTS RESULT OUT OF RANGE REFERENCE UNITS LAB L501.0100 74-106 mg/dL Normal GLU 104 Result Comment: Fasting Glucose result from 100 to 125 mg/dL suggests IMPAIRED HOMEOSTASIS per A.D.A. criteria. Please note revised GLUCOSE reference range effective 2017. LAB L501.1000 7-18 mg/dL Normal BUN 16 LAB L501.1100 0.55-1.02 mg/dL Normal CREAT,SERUM 0.76 Result Comment: The validity of the calculated GFR AND GFRAA in patients over 70 years has not been determined. Clinical correlation is essential. LAB L501.1110 >60 mL/min Normal EST GFR 79 Result Comment: Non- GFR Calc LAB L501.1115 >60 mL/min Normal EST GFR - AA 96 Result Comment: GFR Calc LAB L501.1255 ml/min Normal Estimated CRCL 40.54 LAB L501.1300 10-20 RATIO High BUN/CRE 21.1 LAB L501.2200 8.5-10 mg/dL Normal .1 CA 8.5 LAB L501.5300 136-14 mmol/L Normal 5 NA 144 LAB L501.5600 3.5-5. mmol/L Normal 1 K 3.9 LAB L501.5900 98-107 mmol/L High CL 108 LAB L501.6100 21.0-3 mmol/L Normal 2.0 CO2 29.0 LAB L501.6200 5-15 Normal GAP 7 Performed By: #### L500.2500 #### [facility] [address] [facility] [place], [address] HISTORY AND PHYSICAL Observed: 09/19/2018 Status: F Source: [place] EXAM 5:59 PM [facility] REPOSITORY [facility] Medical Records Department [address] [place] [address] History and Physical 09/19/18 1702 MR#: [id number] Acct: [id number] Name: NINFA SAM Rep #: [id number] : 1945 73 From: Jacob Reyes MD PCP: Mikey Diamond MD Status: ADM IN Location: [place] [address] ADDENDUM by Jacob Reyes MD on 09/19/18 at 1759 Code Visit Sacral pressure ulcer - Stage 1, present on admission. 09/19/18 1755 <Electronically signed by Jacob Reyes MD> Date Jacob Reyes MD cc: Mikey Diamond MD; Jacob Reyes MD * Signed Problem List (1) Shortness of breath Status: Acute (2) Bony metastasis Status: Acute (3) Hyperthyroidism Status: Chronic (4) Lymphoma Status: Acute (5) DVT, bilateral lower limbs Status: Acute (6) Pulmonary embolism Status: Acute (7) Generalized lymphadenopathy Status: Acute (8) Pleural effusion, bilateral Status: Acute (9) IBS (irritable bowel syndrome) Status: Chronic Comment: controlled with diet History of Present Illness Date of Admission: 09/19/18 Chief Complaint: Here for rehabilitation, strengthening, in preparation for chemotherapy for lymphoma. The patient is a 73 year old Female with below past medical history presented to [facility] Emergency Department 09/13/2018 with increasing shortness of breath, increasing heart rate. 09/13/2018 Chest X-ray showed persistent large left effusion, persistent moderate right effusion. 09/13/2018 EKG sinus tachycardia, septal infarct. 09/13/2018 CTA chest bilateral pulmonary emboli, large left effusion, large right effusion, lymphadenopathy, abdominal ascites, T10, T12 bony metastasis. Recent diagnosis of cancer. Pulsox 80% on 2 Liters Oxygen, dry cough. Increase bilateral lower extremity swelling. CBC, BMP, Coags okay. Heparin bolus, drip, for bilateral pulmonary embolism. 09/13/2018 Admit to Hospital. Recent doppler of legs NEGATIVE DVT. Recent Echo EF 65%, moderate pulmonary hypertension. IV heparin bilateral pulmonary emboli. IV Metoprolol for tachycardia. Left thoracentesis showed lymphocytic exudative effusion, NEGATIVE malignant cells. 09/13/2018 Doppler of legs showed acute DVT bilateral lower extremities. 09/14/2018 Left ultrasound guided thoracentesis revealed 1470ML fluid. 09/15/2018 Dr. Norman recommends AVAPS, Heparin drip, reassess BiPAP. 09/14/2018 Dr. Berger thinking Lymphoma. 09/14/2018 Thoracentesis fluid NEGATIVE malignant cells. 09/17/2018 Dr. Garcia planning open excisional biopsy lymph node, port placement. 09/18/2018 Dr. Isckarus recommends open lymph node biopsy, port placement, notes sacral pressure ulcer. 09/18/2018 Eliquis to Heparin to Eliquis after surgery. Respiratory status improving. 09/18/2018 Dr. Norman biopsy positive B Cell Lymphoma. Indefinite anticoagulation. Patient wishes aggressive treatment of B Cell Lymphoma. 09/18/2018 Dr. Garcia performed right IJ chest port placement, Left axillary skin lesion excision, right inguinal lymph node excisional biopsy. 09/19/2018 Start Eliquis, admit to TCU with debility, here for rehabilitation, strengthening, prior to discharge home with spouse to start chemotherapy. Past Medical History Past Medical History (Chronic Problems): Chronic Problems (Last Updated 09/13/18 @ 14:06 by Kamryn Prince MD) Hyperthyroidism (Chronic) Weight loss, non-intentional (Chronic) Pelvic mass in female (Chronic) IBS (irritable bowel syndrome) (Chronic) controlled with diet History of hyperthyroidism (Chronic) Medical History: Medical History (Last Updated 09/13/18 @ 14:06 by Kamryn Prince MD) IBS (irritable bowel syndrome) (Chronic) K58.9 controlled with diet History of hyperthyroidism (Chronic) Z86.39 Allergies No Known Allergies Allergy (Verified 09/13/18 11:54) Home Medications: Ambulatory Orders Medication Instructions Recorded Surgical History: Surgical History (Last Reviewed 09/11/18 @ 13:26 by Agnes Denis) History of lumpectomy Z98.890 breast lump, 1990s, benign History of thoracentesis Z98.890 [facility] 09/01/18 Surgical History: - - Lumpectomy, Thoracentesis, port placement, right inguinal excisional lymph node biopsy. 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 Lives: Spouse/ Significant Other Smoking Status: Never smoker Tobacco Use: Non-smoker Alcohol: None Drugs: None - *Family History Maternal Family History: Family History (Last Reviewed 09/11/18 @ 13:26 by Agnes Denis) Mother Hypertension Cancer Diabetes Father Diabetes Kidney disease Hypertension Hyperlipemia Sister Breast cancer History Items: Cancer - Cervical., Diabetes Paternal Family History: Family History (Last Reviewed 09/11/18 @ 13:26 by Agnes Denis) Mother Hypertension Cancer Diabetes Father Diabetes Kidney disease Hypertension Hyperlipemia Sister Breast cancer History Items: Cancer - Skin., Heart Disease Review of Systems Constitutional: Denies: Chills, Fever, Weight Change HEENT: Denies: Head Aches, Sinus Congestion, Sinus Drainage Cardiovascular: Denies: Chest Pain, Palpitations Respiratory: Denies: Cough, Shortness of breath at rest, Sputum production Gastrointestinal: Reports: Constipation. Denies: Abdominal Pain, Nausea, Vomiting Genitourinary: Denies: Dysuria Musculoskeletal: Denies: Joint Pain, Joint Tenderness Skin: Denies: Rash, Wounds Neurological: Denies: Numbness, Tingling, Focal weakness Psychiatric: Denies: Anxiety, Depression, Homicidal Ideations, Suicidal Ideations Hematologic/ Lymphatic: Denies: Easy Bruising, Easy Bleeding VTE Information - Inpt Only VTE Present on Admission: Yes VTE Mechan Device Prophylaxis: Knee High MALORIE Hose VTE Pharm Prophylaxis ordered?: Yes Patient Problems: Active and Suspected Problems (Last Updated 09/13/18 @ 14:06 by Kamryn Prince MD) Shortness of breath (Acute) Bony metastasis (Acute) - Physical Exam General: Alert, Oriented x3, Cooperative HEENT: Atraumatic, PERRLA, EOMI, Normocephalic Neck: Supple, No JVD, Negative Carotid Bruits Lungs: Clear to auscultation, Normal air movement Cardiovascular: Regular rate, No murmurs, - - Right upper chest port. Abdomen: Bowel Sounds Present, Soft, Non Tender Extremities: No edema, Capillary Refill Less than 3 Seconds Skin: No rashes, No breakdown, Incision - Left axillary, right inguinal clean, dry, intact. Musculoskeletal: No Tenderness to Palpation of Joints or Extremities Neurological: Cranial nerves II-XII grossly intact Psych/Mental Status: Normal Affect, Appropriate Vital Signs Temp Pulse Resp BP Pulse Ox 98.1 F 89 17 119/73 92 09/19/18 14:57 09/19/18 14:57 09/19/18 14:57 09/19/18 14:57 09/19/18 14:57 Oxygen Flow Rate (L/min) 3 Oxygen Delivery Method Nasal Cannula Body Mass Index (BMI) 20.9 Assessment/Plan All Active Problems (Last Updated 09/13/18 @ 14:06 by Kamryn Prince MD) Encounter for adjustment or management of vascular access device (Acute) Mass of left axilla (Acute) Shortness of breath (Acute) Bony metastasis (Acute) Lymphoma (Acute) DVT, bilateral lower limbs (Acute) Pulmonary embolism (Acute) Generalized lymphadenopathy (Acute) Pleural effusion, bilateral (Acute) 73 year old female with below past medical history hospitalized for bilateral pulmonary emboli, bilateral lower extremity DVT secondary to newly diagnosed B cell lymphoma, admitted to TCU with debility, here for rehabilitation, strengthening, prior to discharge home with spouse to start chemotherapy. * Debility - PT/OT. * Pain - Tylenol 1000MG Q8H PRN mild pain. * Bowel - Miralax 17GM daily, Senna/colace 1 tablet BID, Dulcolax 10MG daily PRN, Magnesium citrate 150ML PO x 1 dose for clean out. * Pneumonia vaccination - Administer Prevnar 13 and/or Pneumovax 23 as necessary. * DVT prophylaxis - Not necessary, already on Eliquis. * Shortness of breath - Albuterol 2.5MG Q4H PRN. * Bilateral pulmonary emboli/bilateral lower extremity DVT - Eliquis 10MG BID thru 09/26/2018, then 5MG BID indefinitely. * Nutrition - Ensure Enlive 120ML 4x/day. * Bilateral pleural effusion - Lasix 20MG daily. * B-Cell Lymphoma - Chemotherapy per Dr. Berger upon discharge from TCU. 09/19/18 2783 <Electronically signed by Jacob Reyes MD> Date Jacob Reyes MD Cosigner Signature: Date (if applicable) CC: Mikey Diamond MD; Jacob Reyes MD Signed DISCHARGE SUMMARY Observed: 09/19/2018 Status: F Source: KIP 12:53 PM [facility] REPOSITORY [facility] Medical Records Department [address] [place] [address] Discharge Summary 09/19/18 1241 MR#: [id number] Acct: [id number] Name: NINFA SAM Rep #: [id number] : 1945 73 From: Kamryn Prince MD PCP: Mikey Diamond MD Status: ADM IN Y Location: [place] [address] Discharge Date and Diagnosis - Problem List Patient Problems: Active and Suspected Problems (Last Updated 09/13/18 @ 14:06 by Kamryn Prince MD) Encounter for adjustment or management of vascular access device (Acute) Mass of left axilla (Acute) Date of Admission: 09/13/18 Date of Discharge: 09/19/18 - Primary Discharge Diagnosis Active and Suspected Problems (Last Updated 09/13/18 @ 14:06 by Kamryn Prince MD) #1 acute bilateral pulmonary emboli. #2 acute bilateral DVTs of the lower extremities. #3 acute on chronic hypoxic respiratory failure. #4 bilateral pleural effusion, status post left thoracentesis. #5 generalized lymphadenopathy/working diagnosis of lymphoma, status post right inguinal excisional biopsy. - Secondary Discharge Diagnosis Chronic Problems (Last Updated 09/13/18 @ 14:06 by Kamryn Prince MD) Weight loss, non-intentional (Chronic) Pelvic mass in female (Chronic) IBS (irritable bowel syndrome) (Chronic) controlled with diet History of hyperthyroidism (Chronic) Hospital Course and Treatment Imaging Results: Clinical Impression(s) from Imaging Studies Chest X-Ray 09/13/18 12:05 IMPRESSION: Persistent large left effusion. Persistent moderate right effusion. Electronically Signed: Selene Caro MD at 13:26 EST Tel , Service support , Chest CTA 09/13/18 12:46 IMPRESSION: Findings are positive for bilateral pulmonary embolism. Large left effusion. Large right effusion. Lymphadenopathy. Abdominal ascites. Focal density in T12 focal sclerotic density vertebral body T10 suspicious for osteoblastic metastasis. N.B. : The above information has been verbally conveyed by Selene Caro MD to Christian Lopez [phone], on 09/13/2018 14:31:10 (ET). Electronically Signed: Selene Caro MD at 14:20 EST Tel , Service support , ADDENDUM: 09/13/18 1438 Thoracentesis Ultrasound 09/14/18 08:00 IMPRESSION: Ultrasound-guided left thoracentesis. Electronically Signed: Chris Alfaro MD at 15:36 EST Tel [phone], Service support , Chest X-Ray 09/14/18 15:08 IMPRESSION: Status post left thoracentesis. There is no evidence of pneumothorax. Small bilateral pleural effusions with underlying atelectasis. Electronically Signed: Chris Alfaro MD at 8:33 EST Tel [phone], Service support , Chest X-Ray 09/18/18 15:40 IMPRESSION: The tip of the right jorge catheter is in the right atrium. Interval increase in size of the bilateral pleural effusions with bibasilar atelectasis and/or infiltrates worse on the left side. Electronically Signed: Chris Alfaro MD at 15:51 EST Tel [phone], Service support , Dr. Norman, pulmonology/critical care. Dr. Berger, oncology. Dr. santacruz, general surgery. Operations: None Procedures: Thoracentesis, - - Right inguinal excisional lymph node biopsy. Left axillary skin lesion excision. Placement of right internal jugular Port-A-Cath. Summary of Care Provided: Patient seen and examined on the day of discharge and appeared to be stable to be discharged to TCU. She states that her breathing is a little bit worse than compared to yesterday but she remained on 3 L of oxygen. Her other vital signs are stable. This is a 73 years old female patient presented to the ED because of worsening shortness of breath, weakness and palpitation, found to have acute bilateral pulmonary emboli complicated by acute on chronic hypoxic respiratory failure. #1 acute bilateral pulmonary emboli: Treated with IV heparin drip. Initially, patient was treated in the ICU with IV heparin drip. She was found to have acute bilateral DVT as well which are likely the precipitating factor of the acute bilateral PEs. Patient has been undergoing workup for cancer which is probably lymphoma due to generalized lymphadenopathy. Patient remained on the IV heparin drip for 5 days. On the day of discharge, IV heparin discontinued and she was started on Eliquis loading dose 10 mg p.o. twice daily. #2 acute bilateral DVTs of the lower extremities: Again, treated with IV heparin drip as above. Venous Doppler revealed acute DVT of the right femoral, popliteal, tibioperoneal trunk, gastrocnemius, posterior tibial, peroneal and soleal veins as well as left popliteal, gastrocnemius and soleus veins. She was discharged to TCU on loading dose of Eliquis for 7 days and then maintenance dose of 5 mg p.o. twice daily. #3 acute on chronic hypoxic respiratory failure: Multifactorial secondary to bilateral pulmonary emboli as well as pleural effusions. Status post left thoracentesis, 1500 cc of fluids taken out. Initially, patient required BiPAP and she was up to 6 L of oxygen. After thoracentesis and treatment of the multiple PEs, her oxygenation improved and we were able to take her down to 3 L. Upon discharge, patient maintained on 3 L. #4 bilateral pleural effusion: Status post repeat left thoracentesis. Pleural fluid cytology again negative for malignant cells. During the last admission, she underwent left thoracentesis, found to have lymphocytic exudative effusion that was negative for malignant cells as well. Repeat chest x-ray done after she had a Port-A-Cath and revealed increasing bilateral pleural effusion but her respiratory status remains stable. She remains on 3 L of oxygen. There was no indication to do a repeat thoracentesis at this time. #5 generalized lymphadenopathy/working diagnosis of lymphoma: Status post right inguinal lymph node biopsy that was done on September 11, 2018, and reportedly, that biopsy revealed lymphoma but final diagnosis cannot be made because of not enough tissue for diagnosis. Patient underwent repeat right inguinal lymph node excisional biopsy and at the time of discharge, the biopsy results were pending. Also, she underwent placement of right internal jugular Port-A-Cath to start her on chemotherapy once we have the biopsy results and diagnosis of lymphoma confirmed and specified. Patient discharged to TCU in a stable medical condition, discharged on Eliquis for anticoagulation, discharged on oxygen at 3 L, started on small dose of Lasix, plan to follow-up with oncology in the next 3-4 days when they get the results of the lymph node biopsy, recommended follow-up with PCP in 2 weeks. This note was generated with [email or web address] dictation software. It may contain incorrect words, spelling, and punctuation that were not noted in checking the note before signing. Patient Problems: Active and Suspected Problems (Last Updated 09/13/18 @ 14:06 by Kamryn Prince MD) Encounter for adjustment or management of vascular access device (Acute) Mass of left axilla (Acute) - Physical Exam General: Alert, Oriented x3, Cooperative HEENT: Atraumatic, PERRLA, EOMI, Normocephalic Oral: Moist Mucosa, No Gingival or Mucosal Lesions/ Ulcerations Neck: Supple, No JVD, Negative Carotid Bruits, Trachea Midline, Thyroid Normal Size and Texture Lungs: Clear to auscultation, No wheeze, No rales, Diminished, Rhonchi, - - Decreased breath sounds at the bases, more on the left base, scattered rhonchi. Cardiovascular: Regular rate, Regular Rhythm, Normal S1, Normal S2, PMI Normal Abdomen: Bowel Sounds Present, Soft, Non Tender, Non-Distended, No Hepato-splenomegaly Extremities: No clubbing, No cyanosis, Edema Skin: No rashes, No breakdown Lymphatic: No Cervical, Supraclavicular, or Inguinal Adenopathy Neurological: Cranial nerves II-XII grossly intact, Motor Exam 5/5 strength throughout Psych/Mental Status: Normal Affect, Appropriate Vital Signs Temp Pulse Resp BP Pulse Ox 98.1 F 89 17 119/73 92 09/19/18 08:15 09/19/18 08:15 09/19/18 08:15 09/19/18 08:15 09/19/18 08:15 Oxygen Flow Rate (L/min) [4] 4 Oxygen Flow Rate (L/min) [3] 4 Oxygen Flow Rate (L/min) [2] 4 Oxygen Flow Rate (L/min) [1 ( 4 Initial Baseline)] Oxygen Flow Rate (L/min) 2.5 Oxygen Delivery Method [4] Nasal Cannula Oxygen Delivery Method [3] Nasal Cannula Oxygen Delivery Method [2] Nasal Cannula Oxygen Delivery Method [1 ( Nasal Cannula Initial Baseline)] Oxygen Delivery Method Nasal Cannula Weight: 111 lb 8.862 oz Body Mass Index (BMI) 19.8 Intake and Output for Last 24 Hours Intake Total 381.5 / 381.5 1211 / 1211 400 / 400 Balance 381.5 / 381.5 1211 / 1211 400 / 400 Laboratory Tests Past 24 Hrs WBC RBC Hgb Hct MCV MCH Home Medications: Medications to take at Discharge Acetaminophen [Tylenol] 325 mg PO PRN PRN 08/31/18 Albuterol Inhaler [Ventolin Hfa] 1 - 2 puff INHALATION Q4H PRN PRN #1 inhaler 09/02/18 Apixaban [Eliquis] 5 mg PO BID #90 tablet 09/16/18 Albuterol Aerosols [Ventolin Aerosols] 2.5 mg INHALATION Q4H PRN PRN #1 vial.neb. 09/19/18 Apixaban [Eliquis] 10 mg PO BID #1 tablet 09/19/18 Furosemide [Lasix] 20 mg PO DAILY #1 tablet 09/19/18 Following Prescrptions Were Given to Patient: Albuterol Aerosols [Ventolin Aerosols] 2.5 mg INHALATION Q4H PRN PRN #1 vial.neb. PRN Reason: Shortness of breath, wheezing Furosemide [Lasix] 20 mg PO DAILY #1 tablet Apixaban [Eliquis] 5 mg PO BID #90 tablet Apixaban [Eliquis] 10 mg PO BID #1 tablet Primary Care Physician: Mikey Diamond MD [Primary Care Provider] - Please follow up with your Primary Care Physician in: 2 week. Please Follow Up With: Juani Berger MD When: 3-4 days. Please call his office. Disposition: [facility] facility Minutes spent on discharge:: 36 Patient Condition:: Stable Medical Necessity - Tobacco Use Smoking Status: Never smoker Meaningful Use Info Meaningful Use Diagnoses (Choose all that apply): None applicable Code Visit Inpatient E AND M: 52050 Disch Hosp 09/19/18 1253 <Electronically signed by Kamryn Prince MD> Date Kamryn Prince MD Cosigner Signature (if applicable): Date CC: Bi Garcia MD; Junaid Norman MD; Mikey Diamond MD; Kamryn Prince; Juani Berger MD Signed TRANSFER TO [facility] Observed: 09/19/2018 Status: F Source: [facility] 8:53 AM [facility] REPOSITORY [facility] Medical Records Department [address] [place] [address] Transfer to [facility] MR#: [id number] Acct: [id number] Name: NINFA SAM Gerardo Rep #: [id number] : 1945 73 From: Kamyrn Prince MD PCP: Mikey Diamond MD Status: ADM IN [facility] (Patient) (Health Ins. Claim No.) (Day of Discharge to Facility) Certification of patient admission REQUIRED AT TIME OF ADMISSION. I CERTIFY THAT POST-HOSPITAL ECF SERVICES ARE REQUIRED TO BE GIVEN ON AN IN-PATIENT BASIS BECAUSE OF THE ABOVE NAMED PATIENT'S NEED FOR DETENTION CARE ON A CONTINUING BASIS FOR THE CONDITION(S) FOR WHICH HE/SHE WAS RECEIVING IN-PATIENT HOSPITAL SERVICES PRIOR TO HIS/HER TRANSFER TO THE ECF. 09/19/18 0853 <Electronically signed by Kamryn Prince MD> Date Kamryn Prince MD - Diet 09/18/18 15:43 Diet: Regular Diet Is pt able to select menu?: Yes - Routine Orders/Code Status O2 Liters per Minute: 3 O2 Frequency: Continuous Keep PO Greater than or Equal to (%): 92 - Wound(s) L lower back- thoracentesis site Wound Type: Puncture rt neck Wound Type: Puncture Dressing Change: steristrip rt chest port placement Wound Type: Surgical Incision Dressing Change: Dry Sterile Dressing lt axillia area Wound Type: Surgical Incision Dressing Change: Dry Sterile Dressing rt upper thigh Wound Type: Surgical Incision Dressing Change: dermabond - Suggestions for Active Care Change Position every (hours): 3 Hours to sit in a chair: 2 Times a day to sit in chair: 3 - Therapies Weight Bearing: Weight bearing as tolerated Physical Therapy: Eval and Treat Occupational Therapy: Eval and Treat - Problem/Diagnosis (1) Generalized lymphadenopathy Status: Acute Current Visit: No (2) Pleural effusion, bilateral Status: Acute Current Visit: No (3) IBS (irritable bowel syndrome) Status: Chronic Comment: controlled with diet Current Visit: No (4) History of hyperthyroidism Status: Chronic Current Visit: No - Allergies/Procedures Done in Hospital Allergies/Adverse Reactions: Allergies No Known Allergies Allergy (Verified 09/13/18 11:54) - Type of Care/Length of Stay Estimated LOS: Convalescent Care Less Than 30 days Type of Care Needed: Skilled Rehab Potential: Fair Prognosis: Fair - Additional Orders/Day of Discharge H AND P will serve as current which was dated: 09/13/18 Day of Discharge: 09/19/18 - Dietary and Speech Recommendations Dietitian Recommendations/Changes: Suggest liberal regular diet with po supplements at meals and medpass as diet resumes after surgery. Consider appetite stimulant as indicated. - Follow Up Care Primary Care Physician: Mikey Diamond MD [Primary Care Provider] - Please follow up with your Primary Care Physician in: 2 week. Please Follow Up With: Juani Berger MD When: 3-4 days. Please call his office. 09/19/18 0853 <Electronically signed by Kamryn Prince MD> Date Kamryn Prince MD CC: Bi Garcia MD; Guicho Greenberg D.O.; Mikey Diamond MD; Juani Berger MD Signed CBC W/DIFF, AUTOMATED Collected: 09/19/2018 Status: F Source: KIP 3:50 AM [facility] REPOSITORY TYPE CODE TESTS RESULT OUT OF RANGE REFERENCE UNITS LAB L100.1000 4.4-11.0 K/mm3 Normal WBC 5.7 LAB L100.1200 4.2-5.4 M/mm3 Low RBC 3.60 LAB L100.1300 12.0-15.0 g/dl Low HGB 10.1 LAB L100.1400 37-47 % Low HCT 31.7 LAB L100.1500 81-99 fL Normal MCV 88.1 LAB L100.1600 27.0-32.0 pg Normal MCH 28.1 LAB L100.1700 32-36 g/gl Low MCHC 31.9 LAB L100.1810 11.6-14.6 % High RDW CV 16.2 LAB L100.1820 35.1-43.9 fl High RDW SD 51.2 LAB L100.1900 150-450 K/mm3 Normal PLT 234 LAB L100.2000 6.2-12.0 fl Normal MPV 10.2 LAB L100.2100 47-70 % High NEUT% 81.3 LAB L100.2200 19-41 % Low LY% 9.0 LAB L100.2300 0-10 % Normal MONO% 8.1 LAB L100.2400 0-5 % Normal EO% 1.4 LAB L100.2500 0-1 % Normal BASO% 0.2 LAB L100.2550 0.0-0.9 % Normal IM GRAN % 0.000 Result Comment: IG% - Immature Granulocytes (promyelocytes, myelocytes and metamyelocytes) > 1% indicates that a LEFT SHIFT is Present. LAB L100.2620 2.0-7.7 X10 3/uL Normal Absolute Neut 4.6 LAB L100.2720 0.83-4.51 X10 3/ul Low Absolute Lymph 0.51 LAB L100.4500 Normal SMEAR COMMENT SCANNED Result Comment: LYMPHOPENIA NOTED Performed By: #### L100.0100 #### [facility] [address] [place], [address] PARTIAL THROMBOPLAST Collected: 09/19/2018 Status: F Source: KIP TIME 3:50 AM [facility] REPOSITORY TYPE CODE TESTS RESULT OUT OF REFERENCE UNITS RANGE LAB L300.4310 24.1-36.2 Seconds High PTT 43.9 Performed By: #### L300.4310 #### [facility] [address] [place], [address] BASIC METABOLIC Collected: 09/19/2018 Status: F Source: KIP PROFILE (BMP) 3:50 AM [facility] REPOSIT[facility] TYPE CODE TESTS RESULT OUT OF RANGE REFERENCE UNITS LAB L501.0100 74-106 mg/dL Normal GLU 92 Result Comment: Please note revised GLUCOSE reference range effective 2017. LAB L501.1000 7-18 mg/dL Normal BUN 15 LAB L501.1100 0.55-1.02 mg/dL Normal CREAT,SERUM 0.64 Result Comment: The validity of the calculated GFR AND GFRAA in patients over 70 years has not been determined. Clinical correlation is essential. LAB L501.1110 >60 mL/min Normal EST GFR 96 Result Comment: Non- GFR Calc LAB L501.1115 >60 mL/min Normal EST GFR - AA 116 Result Comment: GFR Calc LAB L501.1255 ml/min Normal Estimated CRCL 41.37 LAB L501.1300 10-20 RATIO High BUN/CRE 23.3 LAB L501.2200 8.5-10 mg/dL Low .1 CA 7.8 LAB L501.5300 136-14 mmol/L Normal 5 NA 144 LAB L501.5600 3.5-5. mmol/L Normal 1 K 4.2 LAB L501.5900 98-107 mmol/L High CL 110 LAB L501.6100 21.0-3 mmol/L Normal 2.0 CO2 27.0 LAB L501.6200 5-15 Normal GAP 7 Performed By: #### L500.2500 #### [facility] [address] [place], [address] PARTIAL THROMBOPLAST Collected: 09/18/2018 Status: F Source: KIP TIME 8:05 PM [facility] REPOSIT[facility] TYPE CODE TESTS RESULT OUT OF RANGE REFERENCE UNITS LAB L300.4310 24.1-36.2 Seconds Normal PTT 29.4 Performed By: #### L300.4310 #### [facility] [address] [place], [place], [address] OPERATIVE REPORT Observed: 09/18/2018 Status: F Source: KIP 4:00 PM [facility] REPOSIT[facility] Medical Records Department [address] [place] [address] Operative Report 09/18/18 1554 MR#: [id number] Acct: [id number] Name: NINFA SAM Rep #: [id number] : 1945 73 From: Bi Garcia MD PCP: Mikey Diamond MD Status: ADM IN Y Location: [place] [id number] ADDENDUM by Bi Garcia MD on 09/18/18 at 1559 Code Visit The size of the left axillary skin lesion was is approximately 6.5 cm x 4.5 cm x 3 cm. 09/18/18 1600 <Electronically signed by Bi Garcia MD> Date Bi Garcia MD cc: Bi Garcia MD; Guicho Greenberg D.O.; Mikey Diamond MD; Kamryn Prince; Juani Berger MD * Signed Problem List (1) Encounter for adjustment or management of vascular access device Status: Acute (2) Mass of left axilla Status: Acute (3) Generalized lymphadenopathy Status: Acute Report of Operation Date of Procedure: 09/18/18 Pre-Operative Diagnosis: 1. Lymphadenopathy and possible lymphoma. 2. Left axillary skin lesion. 3. Need for vascular access port. Post-Operative Diagnosis: Same Surgery/Procedure Performed:: 1. Ultrasound and fluoroscopy guided right IJ chest port placement. 2. Left axillary skin lesion excision. 3. Right inguinal lymph node excisional biopsy Specimen's removed: 1. Left axillary mass. 2. Right inguinal lymph node Estimated Blood Loss (mL): Minimal Description of Procedure: After obtaining informed consent patient was brought back to the operating room MAC anesthesia was induced and the right chest and neck were prepped in normal sterile fashion. Ultrasound was used to evaluate both IJs and the right IJ was selected. Next, using a needle, the right IJ was accessed and a guidewire was passed on into the superior vena cava under fluoroscopy guidance. A small incision was made over the puncture site and the dilator introducer was placed over the guidewire. Next this was capped and the pocket was made for the port. 1% lidocaine with epinephrine was injected in the proposed port site. An incision was made with scalpel. Electrocautery was used to make a pocket under the skin and subcutaneous tissue. Hemostasis was obtained. Next, the catheter was tunneled up to the neck incision site and placed through the introducer. The peel-away introducer was removed and the position of the catheter was confirmed on fluoroscopy. Next, the catheter was trimmed and attached to the port with the locking device. Interrupted 2-0 Vicryl sutures were used to anchor the port to the chest wall and then the port was placed inside the pocket. The pocket was then flushed with saline and the port irrigated with saline. There was good blood return and the port flushed easily. The skin was closed with subcutaneous interrupted 3-0 Vicryl sutures and interrupted skin 3-0 nylon sutures. A single 3-0 Vicryl sutures placed under the skin at the neck incision site. The chest port was accessed with good blood flow and then flushed with heparin. Steri-Strips were placed as well as op sites. Next attention was paid to the left axilla. The patient was redraped. The patient had a large fungating pedunculated mass of the skin of the left axilla. This area was anesthetized with Marcaine and then a shallow skin incision was performed circumferentially. Next the mass was retracted inferiorly and the harmonic scalpel handpiece was used to take the mass at skin level. Care was taken to avoid any deeper structures. The dissection was very superficial. Next the skin was reapproximated with interrupted 3-0 nylon sutures. Hemostasis was good. Next attention was paid to the right groin. The right groin was prepped and draped in the usual sterile fashion. A marked incision site was injected with Marcaine. A small incision was made with a scalpel and electrocautery was used to deepen this to the fascia. The fascia was incised. This allowed for access to a very large inguinal lymph node. Using the harmonic scalpel a 1 cm x 1 cm x 1 cm parcel of tissue was taken from the lymph node. There was good hemostasis. Next the fascia was reapproximated with 2 barehm-lw-wgewv 3-0 Vicryl sutures. Next the skin was closed with interrupted 3-0 Vicryl sutures as well as Dermabond. Patient tolerated procedure well, was taken to PACU in stable condition. Chest x-ray will be obtained. Patient will resume heparin in 6 hours. Grafts/Implants Used: 8 Portuguese PowerPort - Admit VTE Documentation VTE Present on Admission: Yes VTE Mechan Device Prophylaxis: SCD's VTE Pharm Prophylaxis ordered?: Yes 09/18/18 1559 <Electronically signed by Bi Garcia MD> Date Bi Garcia MD CC: Bi Garcia MD; Guicho Greenberg D.O.; Mikey Diamond MD; Kamryn Prince; Juani Berger MD Signed CXR FOR LINE PLACEMENT Observed: 09/18/2018 Status: F Source: [place] 3:35 PM [facility] REPOSITORY [facility] Imaging Services [address] [place] [address] CXR for Line Placement MR#: [id number] Acct: [id number] Name: NINFA SAM Rep #: [id number] : 1945 F 73 From: Chris Alfaro MD PCP: Mikey Diamond MD Status: ADM IN Study: CXR for Line Placement Date of Exam: 09/18/18 Exam# [id number] Ordering Dr: Bi Garcia MD STUDY: X-RAY CHEST REASON FOR EXAM: Female, 73 years old. Port placement. TECHNIQUE: Single AP portable view of the chest. COMPARISON: Comparison is made with prior study dated September 14, 2018. FINDINGS: EKG electrodes are seen. A right-sided portacatheter has been placed. The tip is in the right atrium. Since prior study, there has been progression of the bilateral pleural effusions with underlying infiltration and/or atelectasis worse on the left side. RAD/CXR for Line Placement IMPRESSION: The tip of the right jorge catheter is in the right atrium. Interval increase in size of the bilateral pleural effusions with bibasilar atelectasis and/or infiltrates worse on the left side. 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 Normal Hep B Non Reactive Wale AB Result Comment: Non Reactive: Inconsistent with immunity, less than 10 mIU/mL Reactive: Consistent with immunity, greater than 9.9 mIU/mL LAB L3100.0750 0.0-0.9 s/co ratio Normal HCV Ab <0.1 LAB L3100.0765 . Normal COMMENT Comment Result Comment: Non reactive HCV antibody screen is consistent with no HCV infection, unless recent infection is suspected or other evidence exists to indicate HCV infection. Performed at: - [facility] [id number] Lab Engineer: Earnest Milligan PhD, Phone: [phone] Performed By: #### L3000.0800 #### [facility] (refer to report for specific site) refer to report for address and phone number PARTIAL THROMBOPLAST Collected: 09/18/2018 Status: F Source: KIP TIME 7:10 AM [facility]POS[facility] TYPE CODE TESTS RESULT OUT OF REFERENCE UNITS RANGE LAB L300.4310 24.1-36.2 Seconds High PTT 50.4 Performed By: #### L300.4310 #### [facility] [address] [place], [address] THYROID STIM HORMONE Collected: 09/18/2018 Status: F Source: KIP (TSH) 7:10 AM [facility] TYPE CODE TESTS RESULT OUT OF RANGE REFERENCE UNITS LAB L501.9520 0.358-3.74 uIU/mL Normal TSH 2.70 Performed By: #### L501.9520 #### [facility] [address] [place], [address] URIC ACID Collected: 09/18/2018 Status: F Source: KIP 7:10 AM [facility] TYPE CODE TESTS RESULT OUT OF RANGE REFERENCE UNITS LAB L501.1400 2.6-6.0 mg/dL Normal URIC 3.5 Result Comment: The drugs N-Acetylcysteine and Metamizole may falsely depress this assay. Performed By: #### L501.1400 #### [facility] [place], [address] PARTIAL THROMBOPLAST Collected: 09/18/2018 Status: F Source: KIP TIME 1:18 AM [facility] TYPE CODE TESTS RESULT OUT OF REFERENCE UNITS RANGE LAB L300.4310 24.1-36.2 Seconds High PTT 59.3 Performed By: #### L300.4310 #### [facility] [address] [place], [address] PARTIAL THROMBOPLAST Collected: 09/17/2018 Status: F Source: KIP TIME 6:35 PM [facility] TYPE CODE TESTS RESULT OUT OF REFERENCE UNITS RANGE LAB L300.4310 24.1-36.2 Seconds High PTT 47.8 Performed By: #### L300.4310 #### [facility] [address] [place], [address] PROTHROMBIN TIME W/INR Collected: 09/17/2018 Status: F Source: KIP 12:08 PM [facility] TYPE CODE TESTS RESULT OUT OF RANGE REFERENCE UNITS LAB L300.4150 11.7-14.9 SECONDS High PROTIME 15.8 LAB L300.4200 Normal INR 1.3 Performed By: #### L300.3900, L300.4310 #### [facility] [address] [place], [place], [address] PARTIAL THROMBOPLAST Collected: 09/17/2018 Status: F Source: KIP TIME 12:08 PM [facility] TYPE CODE TESTS RESULT OUT OF RANGE REFERENCE UNITS LAB L300.4310 24.1-36.2 Seconds Normal PTT 26.5 Performed By: #### L300.3900, L300.4310 #### [facility] [address] [place], [address] BASIC METABOLIC Collected: 09/17/2018 Status: F Source: KIP PROFILE (BMP) 5:15 AM [facility]POS[facility] TYPE CODE TESTS RESULT OUT OF RANGE REFERENCE UNITS LAB L501.0100 74-106 mg/dL Normal GLU 91 Result Comment: Please note revised GLUCOSE reference range effective 2017. LAB L501.1000 7-18 mg/dL Normal BUN 17 LAB L501.1100 0.55-1.02 mg/dL Normal CREAT,SERUM 0.64 Result Comment: The validity of the calculated GFR AND GFRAA in patients over 70 years has not been determined. Clinical correlation is essential. LAB L501.1110 >60 mL/min Normal EST GFR 96 Result Comment: Non- GFR Calc LAB L501.1115 >60 mL/min Normal EST GFR - AA 117 Result Comment: GFR Calc LAB L501.1255 ml/min Normal Estimated CRCL 40.02 LAB L501.1300 10-20 RATIO High BUN/CRE 26.5 LAB L501.2200 8.5-10 mg/dL Low .1 CA 8.0 LAB L501.5300 136-14 mmol/L High 5 NA 146 LAB L501.5600 3.5-5. mmol/L Normal 1 K 3.9 LAB L501.5900 98-107 mmol/L High CL 111 LAB L501.6100 21.0-3 mmol/L Normal 2.0 CO2 27.0 LAB L501.6200 5-15 Normal GAP 8 Performed By: #### L500.2500 #### [facility] [address] [place], [place], [address] CBC W/DIFF, AUTOMATED Collected: 09/17/2018 Status: F Source: KIP 5:15 AM [facility] TYPE CODE TESTS RESULT OUT OF RANGE REFERENCE UNITS LAB L100.1000 4.4-11.0 K/mm3 Normal WBC 4.6 LAB L100.1200 4.2-5.4 M/mm3 Low RBC 3.80 LAB L100.1300 12.0-15.0 g/dl Low HGB 10.5 LAB L100.1400 37-47 % Low HCT 33.3 LAB L100.1500 81-99 fL Normal MCV 87.6 LAB L100.1600 27.0-32.0 pg Normal MCH 27.6 LAB L100.1700 32-36 g/gl Low MCHC 31.5 LAB L100.1810 11.6-14.6 % High RDW CV 16.5 LAB L100.1820 35.1-43.9 fl High RDW SD 50.9 LAB L100.1900 150-450 K/mm3 Normal PLT 237 LAB L100.2000 6.2-12.0 fl Normal MPV 10.5 LAB L100.2100 47-70 % High NEUT% 79.2 LAB L100.2200 19-41 % Low LY% 10.5 LAB L100.2300 0-10 % Normal MONO% 9.0 LAB L100.2400 0-5 % Normal EO% 0.9 LAB L100.2500 0-1 % Normal BASO% 0.2 LAB L100.2550 0.0-0.9 % Normal IM GRAN % 0.200 Result Comment: IG% - Immature Granulocytes (promyelocytes, myelocytes and metamyelocytes) > 1% indicates that a LEFT SHIFT is Present. LAB L100.2620 2.0-7.7 X10 3/uL Normal Absolute Neut 3.6 LAB L100.2720 0.83-4.51 X10 3/ul Low Absolute Lymph 0.48 Performed By: #### L100.0100 #### [facility] [address] [place], [place], [address] PARTIAL THROMBOPLAST Collected: 09/16/2018 Status: F Source: KIP TIME 5:00 AM [facility] TYPE CODE TESTS RESULT OUT OF REFERENCE UNITS RANGE LAB L300.4310 24.1-36.2 Seconds High PTT 62.7 Performed By: #### L300.4310 #### [facility] [address] [place], [address] PARTIAL THROMBOPLAST Collected: 09/16/2018 Status: F Source: KIP TIME 12:15 AM [facility] RE[facility] Order Comment: Comments: Time sensitive-hep gtt TYPE CODE TESTS RESULT OUT OF REFERENCE UNITS RANGE LAB L300.4310 24.1-36.2 Seconds High PTT 62.3 Performed By: #### L300.4310 #### [facility] [address] [place], [address] PARTIAL THROMBOPLAST Collected: 09/15/2018 Status: F Source: KIP TIME 6:03 PM [facility] TYPE CODE TESTS RESULT OUT OF REFERENCE UNITS RANGE LAB L300.4310 24.1-36.2 Seconds High PTT 71.0 Performed By: #### L300.4310 #### [facility] [place], [address] PARTIAL THROMBOPLAST Collected: 09/15/2018 Status: F Source: TIME 10:30 AM [facility] TYPE CODE TESTS RESULT OUT OF RANGE REFERENCE UNITS LAB L300.4310 24.1-36.2 Seconds Normal PTT 33.5 Performed By: #### L300.4310 #### [facility] [address] [place], [address] 12 LEAD ELECTROCARDIOGRAM Observed: 09/15/2018 Status: F Source: KIP 8:52 AM [facility] REPOSITORY [facility] Cardiovascular Services [address] [place] [address] 12 Lead EKG 09/13/18 1226 MR#: [id number] Acct: [id number] Name: NINFA SAM Rep #: [id number] : 1945 73 From: Dirk Soto MD Attending Dr: Kamryn Prince Status: ADM IN Ordering Dr: Christian Lopez MD Date: 09/13/18 Location: ICU Sex: F C Admitted: 09/13/18 Test Reason : DYSRHYTHMIA Blood Pressure : / mmHG Vent. Rate : 123 BPM Atrial Rate : 123 BPM P-R Int : 168 ms QRS Dur : 110 ms QT Int : 294 ms P-R-T Axes : 067 081 079 degrees QTc Int : 420 ms Sinus tachycardia Septal infarct , age undetermined Abnormal ECG Confirmed by DIRK SOTO MD ([id number]), newspaper or periodical editor RACHELLE VALERO ([id number]) on 09/15/2018 8:53:41 AM Referred By: Kamryn Prince Confirmed By:DIRK SOTO MD 09/15/18 0853 Date Dirk Soto MD CC: Mikey Diamond MD; Kamryn Prince; Christian Lopez MD Signed CONSULTATION Observed: 09/15/2018 Status: F Source: [place] 5:45 AM [facility] REPOSITORY [facility] Medical Records Department [address] [place] [address] Consultation 09/14/18 0957 MR#: [id number] Acct: [id number] Name: NINFA SAM Rep #: [id number] : 1945 73 From: Junaid Norman MD PCP: Mikey Diamond MD Status: ADM IN Y Location: ICU ICU07-1 Problem List (1) Generalized lymphadenopathy Status: Acute (2) Pleural effusion, bilateral Status: Acute (3) Weight loss, non-intentional Status: Chronic (4) Pelvic mass in female Status: Chronic (5) IBS (irritable bowel syndrome) Status: Chronic Comment: controlled with diet (6) History of hyperthyroidism Status: Chronic Reason for Consult Date of Consultation: 09/14/18 Reason for Consultation: Pulmonary embolism/acute respiratory failure History of Present Illness: The patient is a 73 year old F, with past medical history listed below and well-known to me from previous hospitalization, who presented to [facility] on 09/13/2018 secondary to worsening shortness of breath. On presentation to the emergency room, patient was noted to be 80% on her 2 L nasal cannula. Patient was recently placed on supplemental oxygen following discharge from the hospital. Patient was also noted to have a heart rate of 132 bpm and remained 80% on the 6 L. Chest x-ray showed bilateral pleural effusions and a CT scan of the chest showed bilateral PEs. Patient was placed on a heparin drip, BiPAP and admitted to the intensive care unit Patient had been recently seen [facility] with a pleural effusion that responded well to thoracentesis. Patient was seen as an outpatient with close follow-up, but thoracentesis was noted to be a lymphocytic exudative effusion, but negative for malignant cells. On Friday, patient underwent a right inguinal lymph node biopsy, and results are still pending. To my knowledge, cancer has been suspected, but not confirmed by any testing to this point. Patient reports subjective improvement following initiation of BiPAP therapy. Patient has good response and denies any pain at this time. Patient denied any productive cough, fever, chills, nausea or vomiting at home. Patient has noted increased swelling of bilateral lower extremities. Review of systems otherwise negative x10 systems. Past Medical History Past Medical History (Chronic Problems): Chronic Problems (Last Updated 09/13/18 @ 14:06 by Kamryn Prince MD) Weight loss, non-intentional (Chronic) Pelvic mass in female (Chronic) IBS (irritable bowel syndrome) (Chronic) controlled with diet History of hyperthyroidism (Chronic) Medical History: Medical History (Last Updated 09/13/18 @ 14:06 by Kamryn Prince MD) IBS (irritable bowel syndrome) (Chronic) K58.9 controlled with diet History of hyperthyroidism (Chronic) Z86.39 Allergies No Known Allergies Allergy (Verified 09/13/18 11:54) Home Medications: Ambulatory Orders Medication Instructions Recorded Acetaminophen [Tylenol] 325 mg PO PRN PRN 08/31/18 Albuterol Inhaler [Ventolin Hfa] 1 - 2 puff INHALATION Q4H PRN PRN 09/02/18 Surgical History: Surgical History (Last Reviewed 09/11/18 @ 13:26 by Agnes Denis) History of lumpectomy Z98.890 breast lump, 1990s, benign History of thoracentesis Z98.890 [facility] 09/01/18 Surgical History: no surgical history 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 Lives: Spouse/ Significant Other Smoking Status: Never smoker Alcohol: None Drugs: None - *Family History Maternal Family History: Family History (Last Reviewed 09/11/18 @ 13:26 by Agnes Denis) Mother Hypertension Cancer Diabetes Father Diabetes Kidney disease Hypertension Hyperlipemia Sister Breast cancer History Items: Diabetes Paternal Family History: Family History (Last Reviewed 09/11/18 @ 13:26 by Agnes Denis) Mother Hypertension Cancer Diabetes Father Diabetes Kidney disease Hypertension Hyperlipemia Sister Breast cancer History Items: Heart Disease Review of Systems Comment: See HPI Objective: All imaging was personally reviewed including chest x-ray and CTA. CTA shows bilateral pleural effusions, left greater than right and bilateral large pulmonary emboli. Mediastinal lymphadenopathy is grossly unchanged compared to previous. - Physical Exam General: Alert, Oriented x3, Cooperative, No apparent distress, - - Good synchrony with BiPAP therapy. Cachectic. HEENT: Atraumatic, PERRLA, EOMI, Normocephalic, - - Some temporal wasting noted. No scleral icterus or injection noted. Oral: No Gingival or Mucosal Lesions/ Ulcerations, Dry Mucosa Neck: Supple, No Nodes, Trachea Midline, JVD, Right Lungs: No rhonchi, No wheeze, Diminished - Bilateral, Rales, - - Symmetric expansion. Dullness to percussion bilaterally at the bases Cardiovascular: Regular rate, Regular Rhythm, Normal S1, Normal S2, No murmurs, No rub noted, No Gallop Abdomen: Bowel Sounds Present, Soft, Non Tender, Non-Distended Extremities: No clubbing, No cyanosis, Capillary Refill Less than 3 Seconds, Edema Skin: No rashes, No breakdown Musculoskeletal: No Tenderness to Palpation of Joints or Extremities Lymphatic: No Cervical, Supraclavicular, or Inguinal Adenopathy Neurological: Cranial nerves II-XII grossly intact, Neuro grossly intact, Motor Exam 5/5 strength throughout Psych/Mental Status: Alert and oriented to time, place, person, mood and affect Vital Signs Temp Pulse Resp BP Pulse Ox 36.6 C 97 23 H 126/82 H 98 09/14/18 08:00 09/14/18 09:00 09/14/18 09:00 09/14/18 09:00 09/14/18 09:00 Oxygen Flow Rate (L/min) 7 Oxygen Delivery Method Bi-pap Weight: 53.8 kg Body Mass Index (BMI) 20.9 Intake and Output for Last 24 Hours Intake Total 488.2 / 488.2 403.9 / 403.9 Output Total 425 / 425 125 / 125 Balance 63.2 / 63.2 278.9 / 278.9 Laboratory Tests Past 24 Hrs WBC RBC Hgb Hct MCV MCH MCHC RDW RDW Differential Plt Count MPV Immature Gran % (Auto) WBC RBC Hgb Hct MCV MCH MCHC RDW WBC 6.6 RBC 4.44 Hgb 12.3 Clinical Impression(s) from Imaging Studies Chest X-Ray 09/13/18 12:05 IMPRESSION: Persistent large left effusion. Persistent moderate right effusion. Electronically Signed: Selene Caro MD at 13:26 EST Tel , Service support , Chest CTA 09/13/18 12:46 IMPRESSION: Findings are positive for bilateral pulmonary embolism. Large left effusion. Large right effusion. Lymphadenopathy. Abdominal ascites. Focal density in T12 focal sclerotic density vertebral body T10 suspicious for osteoblastic metastasis. N.B. : The above information has been verbally conveyed by Selene Caro MD to Christian Lopez [phone], on 09/13/2018 14:31:10 (ET). Electronically Signed: Selene Caro MD at 14:20 EST Tel , Service support , ADDENDUM: 09/13/18 1438 Assessment/Plan RECOMMENDATIONS: 1. Continue AVAPS until thoracentesis 2. Hold heparin drip to facilitate thoracentesis 3. Reassess post procedure for BiPAP requirements 4. Await biopsy results 5. Reinitiate heparin drip following thoracentesis if no complications 6. Send pleural fluid for flow cytometry IMPRESSIONS: 1. Acute hypoxic respiratory failure secondary to bilateral pleural effusions and PE High clinical suspicion for underlying malignancy, but to my knowledge this has not been verified by multiple biopsies at this time. Patient does have significant lymphadenopathy noted. Pleural fluid will be sent for flow cytometry. Patient does have a groin lymph node that is currently pending pathologic review. Patient is currently on AVAPS and tolerating well. Will need to reassess following thoracentesis if this is still required. Cannot exclude the need for a right-sided thoracentesis tomorrow, so would continue with heparin drip overnight. Clinical suspicion the patient will require Lovenox therapy on discharge given probable malignant trigger. 2. Probable malignancy Patient is wishing to be aggressive at this time until a diagnosis can be made. If prognosis is poor, cannot exclude palliative measures moving forward. Patient is on a heparin drip at this time to facilitate procedures if necessary. Will call down to pathology to see if lymph node has been evaluated. 3. Advanced age/lack of primary care/cachexia/hypernatremia/hyperchloremia Complicates care, management, recovery and prognosis. Hypernatremia and hyperchloremia are likely secondary to fluid resuscitation. We will KVO IV fluids. TIME: 33 minutes of critical care time spent addressing patient's acute hypoxic respiratory failure, pulmonary embolism, review of all data and collaboration with care team (8 AM to 10 AM) Code Visit 9xxxx: [id number] Critical care first hour 09/15/18 0545 <Electronically signed by Junaid Norman MD> Date Junaid Norman MD Cosigner Signature (if applicable): Date CC: Guicho Greenberg D.O.; Mikey Diamond MD; Kamryn Prince; Juani Berger MD Signed CBC W/DIFF, AUTOMATED Collected: 09/15/2018 Status: F Source: KIP 4:10 AM [facility] REPOS[facility] TYPE CODE TESTS RESULT OUT OF RANGE REFERENCE UNITS LAB L100.1000 4.4-11.0 K/mm3 Normal WBC 5.5 LAB L100.1200 4.2-5.4 M/mm3 Low RBC 3.76 LAB L100.1300 12.0-15.0 g/dl Low HGB 10.6 LAB L100.1400 37-47 % Low HCT 32.9 LAB L100.1500 81-99 fL Normal MCV 87.5 LAB L100.1600 27.0-32.0 pg Normal MCH 28.2 LAB L100.1700 32-36 g/gl Normal MCHC 32.2 LAB L100.1810 11.6-14.6 % High RDW CV 16.6 LAB L100.1820 35.1-43.9 fl High RDW SD 51.6 LAB L100.1900 150-450 K/mm3 Normal PLT 240 LAB L100.2000 6.2-12.0 fl Normal MPV 10.0 LAB L100.2100 47-70 % High NEUT% 76.8 LAB L100.2200 19-41 % Low LY% 11.6 LAB L100.2300 0-10 % High MONO% 10.1 LAB L100.2400 0-5 % Normal EO% 1.1 LAB L100.2500 0-1 % Normal BASO% 0.2 LAB L100.2550 0.0-0.9 % Normal IM GRAN % 0.200 Result Comment: IG% - Immature Granulocytes (promyelocytes, myelocytes and metamyelocytes) > 1% indicates that a LEFT SHIFT is Present. LAB L100.2620 2.0-7.7 X10 3/uL Normal Absolute Neut 4.2 LAB L100.2720 0.83-4.51 X10 3/ul Low Absolute Lymph 0.64 Performed By: #### L100.0100 #### [facility] [address] [place], [address] BASIC METABOLIC Collected: 09/15/2018 Status: F Source: [place] PROFILE ([facility]) 4:10 AM [facility]POS[facility] TYPE CODE TESTS RESULT OUT OF RANGE REFERENCE UNITS LAB L501.0100 74-106 mg/dL Normal GLU 94 Result Comment: Please note revised GLUCOSE reference range effective 2017. LAB L501.1000 7-18 mg/dL High BUN 22 LAB L501.1100 0.55-1.02 mg/dL Normal CREAT,SERUM 0.72 Result Comment: The validity of the calculated GFR AND GFRAA in patients over 70 years has not been determined. Clinical correlation is essential. LAB L501.1110 >60 mL/min Normal EST GFR 84 Result Comment: Non- GFR Calc LAB L501.1115 >60 mL/min Normal EST GFR - AA 101 Result Comment: GFR Calc LAB L501.1255 ml/min Normal Estimated CRCL 41.45 LAB L501.1300 10-20 RATIO High BUN/CRE 30.4 LAB L501.2200 8.5-10 mg/dL Low .1 CA 7.8 LAB L501.5300 136-14 mmol/L High 5 NA 149 LAB L501.5600 3.5-5. mmol/L Normal 1 K 3.8 LAB L501.5900 98-107 mmol/L High CL 113 LAB L501.6100 21.0-3 mmol/L Normal 2.0 CO2 28.0 LAB L501.6200 5-15 Normal GAP 8 Performed By: #### L500.2500 #### [facility] [place], [place], [address] PARTIAL THROMBOPLAST Collected: 09/15/2018 Status: F Source: [place] TIME 4:10 AM [facility] REPOSIT[facility] TYPE CODE TESTS RESULT OUT OF REFERENCE UNITS RANGE LAB L300.4310 24.1-36.2 Seconds High alert PTT 111.4 Result Comment: CRITICAL VALUE VERIFIED. CALLED TO BRANDY khalil 09/15/18 0433 Lesvia Gutierrez. RESULTS READ BACK BY SAME . Performed By: #### L300.4310 #### [facility] [place], [address] PARTIAL THROMBOPLAST Collected: 09/14/2018 Status: F Source: [place] TIME 10:15 PM [facility] REPOSIT[facility] TYPE CODE TESTS RESULT OUT OF REFERENCE UNITS RANGE LAB L300.4310 24.1-36.2 Seconds High PTT 51.7 Performed By: #### L300.4310 #### [facility] [address] [place], [address] CONSULTATION Observed: 09/14/2018 Status: F Source: [place] 4:44 PM [facility] REPOSIT[facility] Medical Records Department [address] [place] [address] Consultation 09/14/18 1630 MR#: [id number] Acct: [id number] Name: NINFA SAM Rep #: [id number] : 1945 73 From: Juani Berger MD PCP: Mikey Diamond MD Status: ADM IN Y Location: ICU ICU07-1 - Problem List (1) Generalized lymphadenopathy Status: Acute (2) Pleural effusion, bilateral Status: Acute (3) DVT, bilateral lower limbs Status: Acute (4) Pulmonary embolism Status: Acute (5) Weight loss, non-intentional Status: Chronic Consult Referring Physician: Hospitalist Consult Results: Generalized lymphadenopathy, suspect lymphoma Subjective Date of Service:: 09/14/18 Chief Complaint: Dyspnea History of Present Illness: 73-year-old female admitted with acute bilateral pulmonary embolism and bilateral lower extremities DVT. Her medical history is notable for 6-12 months fluctuating painlessly enlarging lymph nodes in her axillae and groins. Over the past 6 months she has noted steady weight loss going from size 6-8 to current size 4. She did not seek medical attention until late August 2018 when she experienced increasing dyspnea. August 31, 2018: Chest x-ray revealed bilateral pleural effusions. September 01, 2018: Thoracocentesis 1070 mL of macy-colored fluid was drained, fluid cytology negative for malignancy. September 10, 2018: CT abdomen and pelvis: MPRESSION: 1. Large left-sided pleural effusion and moderate sized right- sided effusion. 2. Bilateral lower lobe atelectasis. 3. 1.4 cm probable cyst of the posterior right hepatic lobe. 4. Mild right hydronephrosis. 5. Severe sigmoid diverticulosis. 6. Extensive retroperitoneal, deep pelvic/iliac chain, and bilateral inguinal adenopathy. 7. Small amount of pelvic ascites. 8. Increased subcutaneous fatty stranding suggestive of anasarca. 9. Sclerotic focus of the T10 body which may represent metastatic lesion. September 11, 2018: Inguinal lymph node biopsy, pathology pending. September 13, 2018: Admitted with increasing dyspnea and CTA showed evidence of bilateral pulmonary embolism and Doppler ultrasound both lower extremities show evidence for bilateral DVTs. Past Medical History: Chronic Problems (Last Updated 09/13/18 @ 14:06 by Kamryn Prince MD) Weight loss, non-intentional (Chronic) Pelvic mass in female (Chronic) IBS (irritable bowel syndrome) (Chronic) controlled with diet History of hyperthyroidism (Chronic) Past Medical/Surgical History: Past Medical History - Most Recent Inpatient Visit Past Medical History Start: 09/13/18 15:14 Text: Status: Complete Freq: ONCE Protocol: Document 09/13/18 16:48 ALLEN (Rec: 09/13/18 16:53 [facility] [id number]) BMI Required to complete PMH What is Patient's BMI 20.9 Neurologic Medical History Hx Stroke/TIA No Hx Dementia/Alzheimer's No Hx Parkinson's Disease No Hx Seizures No Hx Multiple Sclerosis No Hx Migraines No Cardiac Medical History VTE Present on Admission No Hx of Deep Vein Thrombosis/VTE/PE Yes: this admission Hx Hypertension No Hx Chest Pain/Angina No Hx Heart Attack No Hx Cardiac Surgery/Stents/Etc. No Hx Heart Failure No Hx Pacemaker/AICD No Hx Irregular Heartbeat and/or Afib No Hx Anticoagulant Therapy No Query Text:(Coumadin, Aspirin, Plavix, Xarelto, etc.) Hx Pain in Legs when Walking/Leg Cramps Yes Respiratory Medical History Hx COPD No Hx Emphysema No Hx Smoking No Smoking Status Never smoker Hx Smoking Exposure No Hx Tobacco Use in last 12 months No Hx of Pipe Smoking No Hx of Cigar Smoking No Hx Sleep Apnea No Do you snore loudly (louder than talking Yes or can be heard through closed doors)? Do you often feel tired/ fatigued/ No sleepy during daytime? Has anyone observed you stop breathing Yes during sleep? STOP Results Positive GI Medical History Hx Ulcer No Hx Hepatitis No Hx Cirrhosis No Hx GI Bleed No Hx Unplanned Weight Loss Yes: recent dx with cancer Genitourinary Medical History Indwelling Catheter in Place on Arrival/ No Admission Hx Renal Disease No Hx Dialysis No Musculoskeletal History Hx Arthritis No Hx Rheumatoid Arthritis No Endocrine Medical History Hx Diabetes No Hx Thyroid Disease Yes: OVER ACTIVE X2 1997 Hematologic Medical History Hx of Blood Transfusion No Hx of Transfusion in last 3 Months No Ever experience any problems with No transfusion(s)? Hx of Preganancy in last 3 Months No Nurse Filling Out Transfusion AND ALLEN Questions: Date: 09/13/18 Time: 16:52 Psycho/Social Medical History Hx Depression Yes: WINTER Hx Anxiety Yes Hx Behavior Disorder No Hx Alcohol Use No Hx Substance Use No Other Medical History Hx Blood Disorders No Hx Anemia Yes: A CHILD Hx Cancer Yes: LYMPH NODES Hx Drug Resistant Organism No Wound/Pressure Injury Present on Arrival No /Admission Query Text:If yes, chart assessment in Shift/Clinical Findings Central Line/PICC/VAD Present on Arrival No /Admission Antibiotics within last 7 days? No Methicillin Resistant Staphylococcus aureus Screening Active MRSA No Risk for Readmission Number of Risk Factors 7 At Risk for Readmission Patient is At Risk For Readmission Patient is eligible for Call Back Y Past Medical History (Last Updated 09/13/18 @ 14:06 by Kamryn Prince MD) IBS (irritable bowel syndrome) (Chronic) History of hyperthyroidism (Chronic) Past Surgical History (Last Reviewed 09/11/18 @ 13:26 by Agnes Denis) History of lumpectomy (Acute) History of thoracentesis (Acute) Maternal Family History: Family History (Last Reviewed 09/11/18 @ 13:26 by Agnes Denis) Mother Hypertension Cancer Diabetes Father Diabetes Kidney disease Hypertension Hyperlipemia Sister Breast cancer Family History: Diabetes Paternal Family History: Family History (Last Reviewed 09/11/18 @ 13:26 by Agnes Denis) Mother Hypertension Cancer Diabetes Father Diabetes Kidney disease Hypertension Hyperlipemia Sister Breast cancer Family History: Heart Disease - Social History Lives: Spouse/ Significant Other Smoking Status: Never smoker Alcohol: None Drugs: None Allergies/Adverse Reactions: Allergy/AdvReac Type Severity Reaction Status Date / Time No Known Allergies Allergy Verified 09/13/18 11:54 Review of Systems Constitutional:: Reports: Weakness, Fatigue, Weight loss, Appetite change. Denies: Fever, Sweats, Chills Cardiovascular:: Reports: Ankle swelling, Dyspnea on exertion, Peripheral edema, Shortness of breath. Denies: Chest pain, Palpitations, Orthopnea, PND Respiratory: Reports: Shortness of Breath, Shortness of breath at rest, Shortness of breath upon exertion. Denies: Cough, Hemoptysis, Wheezing Gastrointestinal:: Denies: Abdominal pain, Nausea, Vomiting, Diarrhea, Constipation, Hematochezia Genitourinary: Denies: Dysuria, Hematuria, 15, Flank pain Musculoskeletal:: Denies: Back pain, Myalgia, Arthralgia Skin: Denies: Rash, Skin Changes, Wounds Neurological:: Denies: Headache, Dizziness, Visual changes, Tinnitus, Hearing loss Psychiatric: Denies: Anxiety, Depression, Homicidal Ideations, Suicidal Ideations Comment: She is aware of painless enlargement of lymph nodes in her neck, axilla and groins Vital Signs Height 5 ft 3 in Weight: 53.8 kg Weight in Pounds 118.6 lbs Pulse Ox 95 Temperature 98.6 F - Physical Exam General: Alert, Oriented x3, No apparent distress, - - Thin built, ECOG 3, on oxygen HEENT: Atraumatic, PERRLA, EOMI, Normocephalic Oropharynx:: Dry mucosa Neck:: Supple, Trachea midline. Negative for: JVD, bilateral Cardiac:: Regular rate, Regular rhythm, Normal S1, Normal S2. Negative for: Murmur Lungs: Clear to auscultation, Diminished - Bilateral consistent with bilateral pleural effusions, Excusion symmetrical. Negative for: Rhonchi, Wheezes Abdomen:: Soft, Non-tender, Non-distended. Negative for: Hepatosplenomegaly Extremities:: Negative for: Cyanosis, Edema Neurological: Neuro grossly intact Skin:: Lesions - Left axilla with a 3 cm sub-cutaneous pedunculated mass.. Negative for: Rash, Petechiae, Ecchymosis Psychiatric:: Appropriate affect, Euthymic Lymphatics:: Cervical lymphadenopathy, Axillary lymphadenopathy, Inguinal lymphadenopathy Laboratory Data: Laboratory Tests WBC (4.4-11.0) K/mm3 RBC (4.2-5.4) M/mm3 Hgb (12.0-15.0) g/dl Hct (37-47) % MCV (81-99) fL MCH (27.0-32.0) pg Diagnostic Data: Diagnostic Data Chest CTA 09/13/18 12:46 IMPRESSION: Findings are positive for bilateral pulmonary embolism. Large left effusion. Large right effusion. Lymphadenopathy. Abdominal ascites. Focal density in T12 focal sclerotic density vertebral body T10 suspicious for osteoblastic metastasis. N.B. : The above information has been verbally conveyed by Selene Caro MD to Christian Lopez [phone], on 09/13/2018 14:31:10 (ET). Electronically Signed: Selene Caro MD at 14:20 EST Tel , Service support , ADDENDUM: 09/13/18 1438 Assessment and Plan 73-year-old female with: 1. Bilateral pulmonary embolism and bilateral lower extremities DVT most likely secondary to malignancy induced hypercoagulability. Advised systemic anticoagulation. Duration of anticoagulation to be determined later. 2. Generalized lymphadenopathy and anasarca most likely lymphoma, less likely metastatic cancer. Biopsy of right groin was done on September 11, 2018. Pathology is pending. Specific therapeutic recommendations await final pathology. 3. Rapidly recurring bilateral pleural effusions with a negative cytology September 01, 2018 suspect secondary to lymphatic obstruction. Patient had a second therapeutic thoracocentesis today September 14, 2018. Patient was seen with multiple family members including her and 2 daughters, impression and plan discussed Medications: Medications Added to Medication List This Visit Ensure Enlive Med 09/14/18 18:00 Ordered 120 ml PO 4X/DAY Primary Care Provider: Mikey Diamond MD Referring Provider: Himanshu Duran 09/14/18 3989 <Electronically signed by Juani Berger MD> Date Juani Berger MD Cosigner Signature (if applicable): Date CC: Guicho Greenberg D.O.; Mikey Diamond MD; Kamryn Prince; Juani Berger MD Signed PROTHROMBIN TIME W/INR Collected: 09/14/2018 Status: F Source: KIP 4:00 PM [facility] REPOSITORY TYPE CODE TESTS RESULT OUT OF RANGE REFERENCE UNITS LAB L300.4150 11.7-14.9 SECONDS Normal PROTIME 14.8 LAB L300.4200 Normal INR 1.2 Performed By: #### L300.3900, L300.4310 #### [facility] [place], [address] PARTIAL THROMBOPLAST Collected: 09/14/2018 Status: F Source: KIP TIME 4:00 PM [facility] REPOSITORY TYPE CODE TESTS RESULT OUT OF RANGE REFERENCE UNITS LAB L300.4310 24.1-36.2 Seconds Normal PTT 30.9 Performed By: #### L300.3900, L300.4310 #### [facility] [address] [place], [address] CHEST INSP/EXP 2 VIEW Observed: 09/14/2018 Status: F Source: KIP 3:08 PM [facility] REPOSITORY [facility] Imaging Services [address] [place] [address] Chest Insp/Exp 2 View MR#: [id number] Acct: [id number] Name: NINFA SAM Rep #: [id number] : 1945 F 73 From: Chris Alfaro MD PCP: Mikey Diamond MD Status: ADM IN Study: Chest Insp/Exp 2 View Date of Exam: 09/14/18 Exam# [id number] Ordering Dr: Chris Alfaro MD STUDY: X-RAY CHEST REASON FOR EXAM: Female, 73 years old. The patient is status post left thoracentesis. TECHNIQUE: AP inspiration and expiration views. COMPARISON: Comparison is made with prior study dated September 13, 2018. FINDINGS: The patient is status post left thoracentesis. There is no evidence of pneumothorax. Small residual bilateral pleural effusions with underlying atelectasis. RAD/Chest Insp/Exp 2 View IMPRESSION: Status post left thoracentesis. There is no evidence of pneumothorax. Small bilateral pleural effusions with underlying atelectasis. Electronically Signed: Chris Alfaro MD at 8:33 EST Tel [phone], Service support , CC: Mikey Diamond MD; Chris Alfaro MD Scouring Machine Operator: Signed CYTOLOGY, BODY FLUID / Collected: 09/14/2018 Status: F Source: KIP CSF 3:00 PM [facility] REPOSITORY Order Comment: Comments: Please include flow cytometry - Pleural fluid TYPE CODE TESTS RESULT OUT OF RANGE REFERENCE UNITS LAB L350.1000 SEE Normal PATHOLOGY CYTOLOGY,BF REPORT /CSF Result Comment: Specimen submitted to Anatomical Pathology Department for testing. Performed By: #### L350.1000 #### [facility] [address] [place], [address] VENOUS DUPLEX LOWER Observed: 09/14/2018 Status: F Source: KIP EXTREMITY 12:55 PM [facility] REPOSITORY [facility] Cardiovascular Services [address] [place] [address] Venous Duplex US - Ye Extrem 09/14/18 0824 MR#: [id number] Acct: [id number] Name: NINFA SAM Rep #: [id number] : 1945 73 From: Joe Miranda MD Attending Dr: Kamryn Prince Status: ADM IN Ordering Dr: Kamryn Prince MD Date: 09/13/18 Location: ICU Sex: F C Admitted: 09/13/18 Reason For Study: Pulmonary Embolism RIGHT LEFT GSV is normal. GSV is normal. CFV is compressible, spontaneous, phasic, CFV is compressible, spontaneous, phasic, competent and demonstrates normal competent, and demonstrates normal augmentation. augmentation. Rt FV distal, Rt PopV, Rt T/P Trunk, Rt FV is compressible, spontaneous, phasic, GastrocV, Rt PTV, Rt PeroV, and Rt SoleusV competent and demonstrates normal are dilated and non compressible consistent augmentation. with acute DVT PTV is compressible. LT PerV is compressible. Rt FV distal thrombus appears very unstable T/P Trunk is compressible. Lt PopV, Lt GastrocV, and Lt SoleusV are Echogenic, vascular structure noted Rt Groin dilated and non compressible consistent with measuring 2.99cm x 4.61cm (as noted in acute DVT previous study done 08/31/18). Procedure Echogenic, vascular structure noted Lt Groin Exam performed portable in ICU/CCU. measuring 1.49cm x 3.41cm (as noted in A preliminary report was called and/or faxed previous study done 08/31/18). to Patients RN. Interpretation Summary Acute deep venous thrombosis right femoral, popliteal, tibioperoneal trunk, gastrocnemius, posterior tibial, peroneal and soleus veins. Very loose right distal femoral vein thrombus Right groin vascular mass 2.99 x 4.61cm as noted 09/01/18 Acute deep venous thrombosis left popliteal, gastrocnemius and soleus veins. Left groin vascular mass 1.49 x 3.41cm as noted 09/01/18 \ Ordering Physician: Kamryn Prince Referring Physician: Mikey Diamond Performed By: Verena Valdez, MIRIAN, RVT 09/14/18 1255 Date Joe Miranda MD CC: Mikey Diamond MD; Kamryn Prince Date Dictated: 09/14/18 0824 Date Transcribed: 09/14/18 1255 Scouring Machine Operator: Signed INTERNAL MEDICINE Observed: 09/14/2018 Status: F Source: KIP OFFICE VISIT 8:15 AM [facility] [place] [address] OFFICE VISIT Date of Service: 09/04/18 MR#: [id number] Acct: [id number] Name: NINFA SAM Rep #: [id number] : 1945 Provider: Mikey Diamond MD Age/Sex: 73/F [place] [facility] Status: Signed Intake Vital Signs09/04/18 Body Mass Index (BMI) 20.9 09/04/18 Height 5 ft 1 in Intake Visit Reasons: HOSP F/U Chief Complaint: f/u hospital, establish care Is patient in pain?: No Allergies No Known Allergies Allergy (Verified 09/04/18 14:18) Medications Acetaminophen [Tylenol] 162.5 mg PO PRN PRN 08/31/18 [History Confirmed 09/04/18] Albuterol Inhaler [Ventolin Hfa] 1 - 2 puff INHALATION Q4H PRN PRN #1 inhaler 09/02/18 [Rx Confirmed 09/04/18] Post menopausal: Yes PFSH Medical History IBS (irritable bowel syndrome) (Acute) History of hyperthyroidism (Acute) Surgical History History of lumpectomy (Acute) Family History Mother Hypertension Cancer cervical Diabetes Father Diabetes Kidney disease Hypertension Hyperlipemia Sister Breast cancer Social History Smoking Status: Never smoker alcohol intake: never substance use type: does not use what type of physical activity do you participate in: other details: likes to garden and active. HPI HPI Chief Complaint: f/u hospital, establish care Details: NINFA SAM, is a 73yo F who presents to the office today for follow up s/p recent hospital admission and to establish care. She has not had a PCP in over 20 years. She presented to the emergency room on 31 of August after a 2-week episode of worsening shortness of breath. Shortness of breath was said to be with activity and at rest. She however admits to shortness of breath which has been ongoing for much longer but worsened over the last 2 weeks. Investigations done while in the hospital was suggestive of left-sided pleural effusion for which she had a thoracocentesis. She did well during the hospital course and was discharged home on oxygen which she states she has not had to use often. She denies chest pain or worsening shortness of breath. She denies any prior history of similar episodes. She was also noted to be in hypertensive urgency however this resolved without any significant intervention. Blood pressure during this office visit mildly elevated at 160/80 mmHg. She does not routinely check her blood pressure at home. No prior history of hypertension. She has had a right sided pelvic mass which per patient has been present for many months. She has not sought any intervention. She has also noted weight loss and worsening right lower extremity swelling lately. There is also the presence of a left axillary mass. Patient states that she had one on the right which resolved and the current mass on the left has reduced in size per patient. ROS Const Constitutional: Positive for weight change (Between 10-15 lbs over the last 6 months. ); no body ache, chills, fatigue, sleep problems, fever(s), change in appetite, snoring, weakness, frequent falls, headache(s) or excessive sweating Eyes Eyes: No change in vision, eye pain, light sensitivity or blurry vision ENT ENT: No headache(s), abnormal hearing, ear pain, tinnitus, nasal congestion, sore throat or neck pain Resp Respiratory: Positive for cough; no snoring, shortness of breath or wheezing Cardio Cardiology: No excessive sweating, chest pain at rest, chest pain with exertion, shortness of breath, dyspnea on exertion, palpitations, orthopnea or lightheadedness Gastro GI: No abdominal pain, change in bowel habits, constipation, diarrhea, vomiting, nausea/dyspepsia or cramping Genitourinary-Female: No burning urination, painful urination, urinary incontinence, urinary frequency, abnormal vaginal bleeding, pelvic pain or other Musc Musculoskeletal: No neck pain, abnormal walking, joint pain, back pain, limited range of motion, numbness or tingling Skin Skin: No redness, dry skin, itching, lesions, wounds or rash Neuro Neurology: No weakness, frequent falls, headache(s), abnormal hearing, abnormal walking, numbness, tingling, abnormal speech, dizziness or memory loss Psych Psychiatric: No change in appetite, No memory loss, No anxiety, No depression, No Thoughts of harming yourself/Others Endo Endocrine: No fatigue, excessive sweating, cold intolerance, increased thirst/drinking, heat intolerance, flushing or increased hunger Aller/Imm Allergy/Immunologic: No wheezing, itchy eyes, hives or seasonal allergy symptoms Claude/Lymp Hematologic/Lymphatic: Positive for enlarged lymph nodes; no easy bleeding or easy bruising Exam Const General: cooperative, no acute distress Orientation: alert, awake, oriented x3 HENMT Head: atraumatic, normocephalic, normal to inspection Ears: hearing grossly normal bilaterally Neck Neck: normal visual inspection, full ROM, no lymphadenopathy Neck mass: No Thyroid: thyroid normal Chest Other: Pedunculated soft - firm axillary mass. Non tender. Resp Effort AND Inspection: normal respiratory effort, able to speak in complete sentences Auscultation: Bilateral: Clear to Auscultation Cardio Rate: regular rate Heart Sounds: S1 normal, S2 normal GI Palpation: soft, no hepatosplenomegaly Other: Firm immobile mass noted in the right inguinal area. Palpable left inguinal lymph nodes. Neuro General: alert, awake, oriented x3, moves all extremities, CN's II-XI intact bilaterally Extrem Other: Bilateral lower extremity edema however more significant on the right 3-4+ pitting on the right. Psych Appearance: grossly normal Mental Status: mental status grossly normal Mood: congruent mood Affect: normal affect Assessment AND Plan 1. Shortness of breath R06.02 Plan Insidious onset however worsened over the last 2 weeks. She was seen in the hospital and noted to have a left-sided pleural effusion. Fluid analysis from thoracocentesis so far with cytology negative for malignant cells. More testing still underway. Patient however reports improvement in her symptoms. Scheduled to follow-up with with pulmonary today. Continue current management.. Advised to call the office or go to the emergency room if she notes any recurrence of her symptoms. 2. Elevated blood pressure reading without diagnosis of hypertension R03.0 Plan Appears to have been in hypertensive urgency on presentation to the emergency room however this resolved without any significant intervention. Blood pressure in office initially at 144/88 and subsequently 160/80. Again this may be situational. I have asked her to get a blood pressure monitor and monitor blood pressure at home closely. Dietary modifications discussed. Follow-up in 2 weeks with log. Advised to call the office if she notes persistently elevated blood pressure. 3. Pelvic mass in female R19.00 Plan Said to have been present for months. Has had no workup. Imaging ordered. Referred to Dr. Miranda. Orders Orders: 4. Axillary mass R22.[address] Miranda as above. 5. Healthcare maintenance Z00.00 Plan Mammogram ordered. Possible screening colonoscopy with general surgery. This note was generated with [employer] software. It may contain incorrect words, spelling, and punctuation that were not noted in checking the note before signing. Plan Detail Other Orders Orders: Referrals: Coding Level of Care Code Off vis,est,level 4 Diagnoses Shortness of breath R06.02 Elevated blood pressure reading without diagnosis of hypertension R03.0 Pelvic mass in female R19.00 Axillary mass R22.30 Healthcare maintenance Z00.00 09/14/18 0815 <Electronically signed by Mikey Diamond MD> Date Mikey Diamond MD Cosigner Signature: Date (if applicable) CC: BASIC METABOLIC Collected: 09/14/2018 Status: F Source: KIP PROFILE ([facility]) 4:05 AM [facility] REPOSITORY TYPE CODE TESTS RESULT OUT OF RANGE REFERENCE UNITS LAB L501.0100 74-106 mg/dL High GLU 130 Result Comment: Fasting Glucose result greater than or equal to 126 mg/dL suggests DIABETES MELLITUS per A.D.A. criteria. Please note revised GLUCOSE reference range effective 2017. LAB L501.1000 7-18 mg/dL Normal BUN 17 LAB L501.1100 0.55-1.02 mg/dL Normal CREAT,SERUM 0.76 Result Comment: The validity of the calculated GFR AND GFRAA in patients over 70 years has not been determined. Clinical correlation is essential. LAB L501.1110 >60 mL/min Normal EST GFR 79 Result Comment: Non- GFR Calc LAB L501.1115 >60 mL/min Normal EST GFR - AA 96 Result Comment: GFR Calc LAB L501.1255 ml/min Normal Estimated CRCL 41.45 LAB L501.1300 10-20 RATIO High BUN/CRE 22.4 LAB L501.2200 8.5-10 mg/dL Low .1 CA 8.0 LAB L501.5300 136-14 mmol/L High 5 NA 146 LAB L501.5600 3.5-5. mmol/L Normal 1 K 3.8 LAB L501.5900 98-107 mmol/L High CL 111 LAB L501.6100 21.0-3 mmol/L Normal 2.0 CO2 27.0 LAB L501.6200 5-15 Normal GAP 8 Performed By: #### L500.2500 #### [facility] [place], [address] CBC W/DIFF, AUTOMATED Collected: 09/14/2018 Status: F Source: [place] 4:05 AM [facility] REPOSITORY TYPE CODE TESTS RESULT OUT OF RANGE REFERENCE UNITS LAB L100.1000 4.4-11.0 K/mm3 Normal WBC 6.6 LAB L100.1200 4.2-5.4 M/mm3 Normal RBC 4.44 LAB L100.1300 12.0-15.0 g/dl Normal HGB 12.3 LAB L100.1400 37-47 % Normal HCT 38.0 LAB L100.1500 81-99 fL Normal MCV 85.6 LAB L100.1600 27.0-32.0 pg Normal MCH 27.7 LAB L100.1700 32-36 g/gl Normal MCHC 32.4 LAB L100.1810 11.6-14.6 % High RDW CV 16.5 LAB L100.1820 35.1-43.9 fl High RDW SD 51.6 LAB L100.1900 150-450 K/mm3 Normal PLT 264 LAB L100.2000 6.2-12.0 fl Normal MPV 9.5 LAB L100.2100 47-70 % High NEUT% 77.4 LAB L100.2200 19-41 % Low LY% 10.5 LAB L100.2300 0-10 % High MONO% 11.4 LAB L100.2400 0-5 % Normal EO% 0.3 LAB L100.2500 0-1 % Normal BASO% 0.2 LAB L100.2550 0.0-0.9 % Normal IM GRAN % 0.200 Result Comment: IG% - Immature Granulocytes (promyelocytes, myelocytes and metamyelocytes) > 1% indicates that a LEFT SHIFT is Present. LAB L100.2620 2.0-7.7 X10 3/uL Normal Absolute Neut 5.1 LAB L100.2720 0.83-4.51 X10 3/ul Low Absolute Lymph 0.70 Performed By: #### L100.0100 #### [facility] [address] [place], [address] PROTHROMBIN TIME W/INR Collected: 09/14/2018 Status: F Source: KIP 4:05 AM [facility] REPOSITORY TYPE CODE TESTS RESULT OUT OF RANGE REFERENCE UNITS LAB L300.4150 11.7-14.9 SECONDS High PROTIME 15.5 LAB L300.4200 Normal INR 1.2 Performed By: #### L300.3900 #### [facility] [address] [place], [address] PARTIAL THROMBOPLAST Collected: 09/14/2018 Status: F Source: [place] TIME 2:20 AM [facility] REPOSITORY TYPE CODE TESTS RESULT OUT OF REFERENCE UNITS RANGE LAB L300.4310 24.1-36.2 Seconds High PTT 61.2 Performed By: #### L300.4310 #### [facility] [address] [place], [address] THORACENTESIS W US Observed: 09/14/2018 Status: F Source: [place] 12:01 AM [facility] REPOSITORY [facility] Imaging Services [address] [place] [address] Thoracentesis W US MR#: [id number] Acct: [id number] Name: NINFA SAM Rep #: [id number] : 1945 F 73 From: Chris Alfaro MD PCP: Mikey Diamond MD Status: ADM IN Study: Thoracentesis W US Date of Exam: 09/14/18 Exam# [id number] Ordering Dr: Faye Dunbar MD PROCEDURE: ULTRASOUND GUIDED THORACENTESIS. DATE: September 14, 2018.. INDICATION: Female, 73 years old. Left pleural effusion. PHYSICIAN: Chris Alfaro M.D. PROCEDURE: The risks, benefits, and alternatives to the procedure were explained to the patient. The specific risks of bleeding, infection, and pneumothorax requiring chest tube insertion were discussed and accepted. Written informed consent was obtained. Ultrasonographic evaluation of the left lower pleural space was carried out. An adequate pocket was identified. The patient was placed in the sitting, upright position. The overlying skin was prepped and draped in sterile fashion. 1% lidocaine was administered subcutaneously for local anesthesia. Under ultrasound guidance, a 6 Portuguese thoracentesis needle/catheter system was advanced into the left posterior lower pleural fluid collection. Approximately 1470 mL of macy-colored fluid was drained. The catheter was removed, and a sterile dressing was applied. A specimen was collected and sent to the laboratory for analysis, as requested by the referring clinician. The patient tolerated the procedure well. A chest x-ray was ordered. US/Thoracentesis W US IMPRESSION: Ultrasound-guided left thoracentesis. Electronically Signed: Chris Alfaro MD at 15:36 EST Tel [phone], Service support , CC: Mikey Diamond MD; Faye Dunbar MD Scouring Machine Operator: Signed FLUID/WASHING Observed: 09/14/2018 Status: F Source: KIP 12:00 AM [facility] REPOSITORY Patient: NINFA SAM : 1945 (73/F) Acct Num: [id number] Phys: Kamryn Prince Unit Num: [id number] Loc: U [id number] Specimen: [id number] Received: 09/15/18 - 1310 Spec Type: Fluid TISSUES 1 TISSUES: THORACIC FLUID CYTOLOGY GROSS Received is 60 ml of cloudy yellow fluid labeled with the patient's name and and designated per the requisition as thoracentesis. Submitted for cytology preparation including cell block. / 09/15/18 TC:5 CPT: 13277, 83552 CYTOLOGY STUDY Slides are reviewed. DIAGNOSIS CYTOLOGY Thoracentesis fluid for cytology (cytospins): Negative for malignant cells. AM:yolanda 09/16/18 HEADER OPERATION: Ultrasound-guided left thoracentesis PRE-OP DIAGNOSIS: Acute pulmonary emboli TISSUE SUBMITTED: Thoracentesis fluid for cytology Signed Aldair Winchesterih 09/16/18 <signature on file> Performed By: #### PFLU #### [facility] [address] [place], [address] TROPONIN-I Collected: 09/13/2018 Status: F Source: [place] 10:10 PM [facility] REPOSITORY Order Comment: 'TROP' Serial specimen #1, #2 or #3: 3 'TROP' Serial specimen #1, #2, #3, or #4: 3 TYPE CODE TESTS RESULT OUT OF RANGE REFERENCE UNITS LAB L501.4010 <0.045 ng/mL High 0.284 TROPONIN-I Result Comment: TROPONIN-I EXPECTED VALUES <0.045 Negative 0.045 - 0.590 Consistent with Cardiac Damage > OR = 0.600 Critical Value Not every elevated troponin is indicative of CA. These values should be used with clinical judgement in examining the patient's clinical picture for diagnosis. To establish a diagnosis of CA versus myocardial injury, there must be a demonstrated rise and/or fall in the troponin values, in addition to ischemic symptoms, EKG changes, new regional wall motion abnormality, and/or angiographical evidence. PLEASE NOTE: REFERENCE RANGES EDITED 18 Performed By: #### L501.4010 #### [facility] [address] [place], [address] TROPONIN-I Collected: 09/13/2018 Status: F Source: [place] 7:45 PM [facility] REPOSIT[facility] Order Comment: 'TROP' Serial specimen #1, #2 or #3: 2 'TROP' Serial specimen #1, #2, #3, or #4: 2 TYPE CODE TESTS RESULT OUT OF RANGE REFERENCE UNITS LAB L501.4010 <0.045 ng/mL High 0.263 TROPONIN-I Result Comment: TROPONIN-I EXPECTED VALUES <0.045 Negative 0.045 - 0.590 Consistent with Cardiac Damage > OR = 0.600 Critical Value Not every elevated troponin is indicative of CA. These values should be used with clinical judgement in examining the patient's clinical picture for diagnosis. To establish a diagnosis of CA versus myocardial injury, there must be a demonstrated rise and/or fall in the troponin values, in addition to ischemic symptoms, EKG changes, new regional wall motion abnormality, and/or angiographical evidence. PLEASE NOTE: REFERENCE RANGES EDITED 18 Performed By: #### L501.4010 #### [facility] [address] [place], [address] PARTIAL THROMBOPLAST Collected: 09/13/2018 Status: F Source: [place] TIME 7:45 PM [facility] REPOSITORY TYPE CODE TESTS RESULT OUT OF REFERENCE UNITS RANGE LAB L300.4310 24.1-36.2 Seconds High PTT 89.3 Performed By: #### L300.4310 #### [facility] [address] [place], [address] TROPONIN-I Collected: 09/13/2018 Status: F Source: [place] 4:20 PM [facility] REPOSITORY Order Comment: 'TROP' Serial specimen #1, #2 or #3: 1 TYPE CODE TESTS RESULT OUT OF RANGE REFERENCE UNITS LAB L501.4010 <0.045 ng/mL High 0.291 TROPONIN-I Result Comment: TROPONIN-I EXPECTED VALUES <0.045 Negative 0.045 - 0.590 Consistent with Cardiac Damage > OR = 0.600 Critical Value Not every elevated troponin is indicative of CA. These values should be used with clinical judgement in examining the patient's clinical picture for diagnosis. To establish a diagnosis of CA versus myocardial injury, there must be a demonstrated rise and/or fall in the troponin values, in addition to ischemic symptoms, EKG changes, new regional wall motion abnormality, and/or angiographical evidence. PLEASE NOTE: REFERENCE RANGES EDITED 18 Performed By: #### L501.4010 #### [facility] [address] [place], [address] HISTORY AND PHYSICAL Observed: 09/13/2018 Status: F Source: [place] EXAM 2:35 PM [facility] REPOSITORY [facility] Medical Records Department [address] [place] [address] History and Physical 09/13/18 1407 MR#: [id number] Acct: [id number] Name: NINFA SAM Rep #: [id number] : 1945 73 From: Kamryn Prince MD PCP: Mikey Diamond MD Status: ADM IN Y [facility] Problem List (1) Generalized lymphadenopathy Status: Acute (2) Pleural effusion, bilateral Status: Acute (3) IBS (irritable bowel syndrome) Status: Chronic Comment: controlled with diet (4) History of hyperthyroidism Status: Chronic History of Present Illness Date of Admission: 09/13/18 Chief Complaint: Worsening shortness of breath. The patient is a 73 year old F with past medical history as mentioned above presented to the emergency room because of worsening shortness of breath. Her symptoms of shortness of breath started to worsen this past Friday after she had inguinal lymph node biopsy. Since then, she has been having worsening shortness of breath, she gets short of breath at rest, aggravated by minimal activity, not relieved by rest, associated with palpitation and dry cough without sputum production and today, she needed to increase her oxygen at home up to 4 L of oxygen. This morning, her pulse ox was 80% on 2 L according to the patient's daughter. She denied chest pain, dizziness or lightheadedness. She denies fever or chills. Patient was discharged from the hospital on August, and she was admitted for bilateral pleural effusion and generalized lymphadenopathy. She underwent left-sided thoracentesis both diagnostic and therapeutic, found to have lymphocytic exudative effusion and that was negative for malignant cells. This past Friday, September 11, 2018, she underwent right inguinal lymph node biopsy and histopathology results are pending at this time. During the recent admission, venous Doppler of both legs showed no evidence of acute DVT. CT scan abdomen and pelvis with contrast done on September 10, 2018 and revealed large left-sided pleural effusion, moderate right-sided pleural effusion, right mild hydronephrosis, extensive retroperitoneal, deep pelvic and iliac as well as bilateral inguinal lymphadenopathy and also found to have small amount of pelvic ascites. In the emergency department, patient was dyspneic and tachypneic, tachycardic, afebrile, blood pressure was stable. Pulse ox was 88% on 6 L. Her routine blood work was unremarkable. Venous blood gas revealed pH of 7.52, PCO2 of 41 and PCO2 of 28 which was mixed. EKG revealed sinus tachycardia without evidence of acute ischemic changes or cardiac arrhythmias. Chest x-ray revealed large left-sided pleural effusion and moderate right side pleural effusion. CTA chest done and revealed multiple filling defects within the left upper, left lower branches as well as right lower subsegmental branches and right upper branches consistent with multiple bilateral pulmonary emboli. She is being admitted for acute multiple bilateral PEs with acute on chronic hypoxic respiratory failure. Past Medical History Past Medical History (Chronic Problems): Chronic Problems (Last Updated 09/13/18 @ 14:06 by Kamryn Prince MD) Weight loss, non-intentional (Chronic) Pelvic mass in female (Chronic) IBS (irritable bowel syndrome) (Chronic) controlled with diet History of hyperthyroidism (Chronic) Medical History: Medical History (Last Updated 09/13/18 @ 14:06 by Kamryn Prince MD) IBS (irritable bowel syndrome) (Chronic) K58.9 controlled with diet History of hyperthyroidism (Chronic) Z86.39 Allergies No Known Allergies Allergy (Verified 09/13/18 11:54) Home Medications: Ambulatory Orders Medication Instructions Recorded Acetaminophen [Tylenol] 325 mg PO PRN PRN 08/31/18 Albuterol Inhaler [Ventolin Hfa] 1 - 2 puff INHALATION Q4H PRN PRN 09/02/18 Surgical History: Surgical History (Last Reviewed 09/11/18 @ 13:26 by Agnes Denis) History of thoracentesis Z98.890 [facility] 09/01/18 History of lumpectomy Z98.890 breast lump, 1990s, benign Surgical History: no surgical history 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 Lives: Spouse/ Significant Other Smoking Status: Never smoker Alcohol: None Drugs: None - *Family History Maternal Family History: Family History (Last Reviewed 09/11/18 @ 13:26 by Agnes Denis) Mother Hypertension Cancer Diabetes Father Diabetes Kidney disease Hypertension Hyperlipemia Sister Breast cancer History Items: Diabetes Paternal Family History: Family History (Last Reviewed 09/11/18 @ 13:26 by Agnes Denis) Mother Hypertension Cancer Diabetes Father Diabetes Kidney disease Hypertension Hyperlipemia Sister Breast cancer History Items: Heart Disease Review of Systems Constitutional: Reports: Anorexia, Weakness, Fatigue. Denies: Chills, Fever Eyes: Denies: Blurred vision, Double vision, Drainage, Redness HEENT: Denies: Difficulty Hearing, Ear Pain, Eye Pain, Nasal Congestion, Sore Throat Cardiovascular: Reports: Palpitations. Denies: Chest Pain, Chest Pressure, Chest Tightness, Light Headedness, Syncope Respiratory: Reports: Cough, Shortness of Breath, Shortness of breath at rest, Shortness of breath upon exertion. Denies: Sputum production, Wheezing Gastrointestinal: Denies: Abdominal Pain, Constipation, Diarrhea, Nausea, Vomiting Genitourinary: Denies: Dysuria, Frequency, Hematuria Musculoskeletal: Denies: Arm Pain, Back Pain, Foot Pain Skin: Denies: Dryness, Rash Neurological: Denies: Balance problems, Double vision, Change in Speech, Slurred speech, Confusion, Focal weakness, Headaches, Incoordination, Numbness Psychiatric: Denies: Anxiety, Depression Endocrine: Denies: Change in Body Habitus, Polydipsia VTE Information - Inpt Only VTE Present on Admission: No VTE Mechan Device Prophylaxis: None VTE Pharm Prophylaxis ordered?: No Patient Problems: Active and Suspected Problems (Last Updated 09/13/18 @ 14:06 by Kamryn Prince MD) Generalized lymphadenopathy (Acute) Pleural effusion, bilateral (Acute) - Physical Exam General: Alert, Oriented x3, Cooperative, - - Dyspneic, tachypneic. HEENT: Atraumatic, PERRLA, EOMI, Normocephalic Oral: Moist Mucosa, No Gingival or Mucosal Lesions/ Ulcerations Neck: Supple, No JVD, Negative Carotid Bruits, Trachea Midline, Thyroid Normal Size and Texture Lungs: No rhonchi, No wheeze, No rales, Diminished, Short of Breath, Tachypneic, - - Absent breath sounds on the left side with dull percussion noted, markedly decreased breath sounds on the right base. Cardiovascular: Regular rate, Regular Rhythm, Normal S1, Normal S2, PMI Normal, Tachycardic Abdomen: Bowel Sounds Present, Soft, Non Tender, Non-Distended, No Hepato-splenomegaly Extremities: No clubbing, No cyanosis, Edema - + Edema. Skin: No rashes, No breakdown Lymphatic: No Cervical, Supraclavicular, or Inguinal Adenopathy Neurological: Cranial nerves II-XII grossly intact, Motor Exam 5/5 strength throughout Psych/Mental Status: Normal Affect, Appropriate, Alert and oriented to time, place, person, mood and affect Vital Signs Temp Pulse Resp BP Pulse Ox 97.6 F L 125 H 30 H 139/85 H 89 09/13/18 11:54 09/13/18 11:54 09/13/18 11:54 09/13/18 11:54 09/13/18 12:19 Oxygen Flow Rate (L/min) 6 Oxygen Delivery Method Nasal Cannula Weight: 118 lb Body Mass Index (BMI) 20.9 Laboratory Tests Past 24 Hrs WBC RBC Hgb Hct Assessment/Plan All Active Problems (Last Updated 09/13/18 @ 14:06 by Kamryn Prince MD) Generalized lymphadenopathy (Acute) Pleural effusion, bilateral (Acute) This is a 73 years old female patient presented to the ED because of worsening shortness of breath, weakness and palpitation, found to have acute bilateral pulmonary emboli complicated by acute on chronic hypoxic respiratory failure. #1 acute bilateral pulmonary emboli: This is likely provoked secondary to probable cancer with unknown primary versus suspected bilateral DVT. Patient had bilateral venous Doppler during the recent admission and that was negative for DVTs of both legs. She had 2D echocardiogram done on September 01, 2018 that revealed ejection fraction of 65%, small pericardial effusion, moderate pulmonary hypertension. Today, her legs are swollen. Plan: Admit to intensive care unit, complete bedrest continue IV heparin drip, gentle IV fluids for hydration, IV metoprolol as needed for tachycardia, Tylenol as needed, IV antiemetics, repeat CBC and BMP tomorrow morning, bilateral venous Doppler, critical care consult, oncology consult, keep on clear liquids for now, PT OT evaluation and treatment. #2 acute on chronic hypoxic respiratory failure: During her last admission, she was discharged from the hospital on oxygen at 2 L. Today, pulse ox was 80% on 2 L at home. At this time, she is up to 6 L. Pulse ox is 89%. Plan: Continue IV heparin drip, incentive spirometer, bronchodilators, chest physiotherapy, consider therapeutic thoracentesis. #3 bilateral pleural effusion: Status post left thoracentesis, found to have lymphocytic exudative effusion. Pleural fluid was negative for malignant cells. Chest x-ray from today reviewed, revealed large left pleural effusion as well as moderate right pleural effusion. Patient may benefit from therapeutic thoracentesis at this time. #4 generalized lymphadenopathy: Status post right inguinal lymph node biopsy that was done on September 11, 2018, histopathology report is pending. Cancer is the likely diagnosis at this time, no primary is obvious at this point. She had a CT scan abdomen and pelvis done on September 10, 2018, results reviewed as above. #5 history of hyperthyroidism: Currently not on treatment. Her TSH was normal at 1.70 on August 31, 2018. #6 irritable bowel syndrome: Diet controlled, stable. Patient will be on clear liquids for now. #7 CODE STATUS: At this time, patient is unsure about CODE STATUS if her condition deteriorates. She wants to discuss with her . At this time, she will be full code. #8 DVT prophylaxis: This note was generated with [email or web address] dictation software. It may contain incorrect words, spelling, and punctuation that were not noted in checking the note before signing. Code Visit Inpatient E AND M: [id number] Init Hosp L3 09/13/18 1435 <Electronically signed by Kamryn Prince MD> Date Kamryn Prince MD Cosigner Signature: Date (if applicable) CC: Mikey Diamond MD; Kamryn Prince Signed EMERGENCY DEPARTMENT Observed: 09/13/2018 Status: F Source: [place] SUMMARY 1:52 PM [facility] REPOSITORY [facility] Medical Records Department [address] [place] [address] Emergency Department Summary 09/13/18 1347 MR#: [id number] Acct: [id number] Name: NINFA SAM Rep #: [id number] : 1945 73 From: Christian Lopez MD PCP: Mikey Diamond MD Status: REG ER - ER Visit Summary Date of Service: 09/13/18 Chief Complaint: Increased shortness of breath and heart rate History of Present Illness: The patient is a 73 F who was recently diagnosed with cancer. She had a thoracentesis which was nondiagnostic. There was a biopsy of an inguinal node and results are pending. She presents because of pulse ox reading of 80% on 2 L at home. She denies fever, chills night sweats. She states he has a cough which is nonproductive. She denies pleuritic chest pain. She denies abdominal pain or back pain. She does report increased swelling of her lower extremities. Physical Examination: Vital signs are remarkable for heart rate of 132, respiratory of 33 pulse ox of 80% on 6 L. She is not febrile. She is thin and pale in appearance. HEENT exam is unremarkable. Heart is rapid and regular. There is diminished breath sounds right absent breath sounds left. Abdomen is soft nontender. There is 3+ pitting edema both extremities. Her extremities are pale. There is no tenderness, leg vein distention, palpable coarseness on the distribution of deep venous system. She had a recent venous duplex study of her lower extremities and no clot was noted. Neuro exam is nonfocal. Test Results: EKG sinus tachycardia rate of 123 with decreased anterior force. ND interval is normal. QRS duration is slightly prolonged. QT interval is normal. [place] is normal. There is no acute ischemic changes noted. There is motion artifact noted. Chest x-ray reveals bilateral pleural effusions left greater than right. The x-ray is improved from prior. CBC is unremarkable. Basic medical panel is unremarkable. Coags are normal. Venous blood gas reveals an alkalosis. Emergency Department Course and Treatment: In light of patient's increased sedentary lifestyle recent diagnosis of cancer concerned she has a PE since she is tachycardic, tachypneic and hypoxic which started abruptly. Chest x-ray was obtained because of diminished/absent breath sounds on the left and concern for worsening pleural effusion and/or pneumothorax. CBC was obtained to evaluate white count and hemoglobin. Electronic panel was obtained to assess kidney function prior to CTA if needed. Coags were obtained. Formal read by radiologist has not been available. Review of CTA by wv reveals significant bilateral pulmonary embolus. There is a significant clot/burden lobe. Treatment Plan: IV bolus of heparin and drip. Admit to ICU. Consult oncology and Dr. Mathews brother regarding prognosis, treatment etc. Patient was spoken to with regards to CODE STATUS. She would like to talk to her and her daughters. She was informed there is an order for life-sustaining measures and she specifically can choose what she wishes to have done or not have done. Disposition: Admit ICU Impression: 1. Bilateral pulmonary embolus 2. Sinus tachycardia documented on EKG and monitor 3. Respiratory failure with hypoxia secondary #1 4. Bilateral pleural effusion 5. Recent diagnosis of cancer 6. History of hypothyroidism This note was generated with [email or web address] dictation software. It may contain incorrect words, spelling, and punctuation that were not noted in review of the chart prior to signing ED Disposition - Plan for ED Patient: Chief Complaint: Shortness of Breath Referrals: Mikey Diamond MD [Primary Care Provider] - What to do if you have Problems For any increased pain, shortness of breath, bleeding, nausea or vomiting, chest pain, or any unexpected problems, contact your Primary Care Provider. Call [facility] ([phone]) or report to the closest Emergency Room. Call 911 if necessary. 09/13/18 1352 <Electronically signed by Christian Lopez MD> Date Christian Lopez MD Cosigner Signature (If Indicated): Date CC: Mikey Diamond MD VENOUS BLOOD GAS Collected: 09/13/2018 Status: F Source: KIP 12:51 PM [facility] REPOSITORY TYPE CODE TESTS RESULT OUT OF RANGE REFERENCE UNITS LAB L9000.9990 Normal BLD GAS TYPE JOSHUA LAB L9001.1000 L Normal SITE Brachial LAB L9001.1050 O2 Normal Delivery Dev Nasal Can LAB L9001.1055 /min Normal LPM 6.0 LAB L9001.1104 ED Normal Results To MD LAB L9001.1105 Normal Time Given 1250 LAB L9002.1110 7.32-7.42 High VBGpH - I-STAT 7.52 LAB L9002.1212 41-51 mmHg Low VBG pCO2 - 28.6 ISTA LAB L9002.1310 25-40 mmHg High 41 VBG PO2 I-STAT LAB L9002.2300 22-26 mmol/L 23 Normal VBG HCO3 ISTAT LAB L9002.2400 -1.0-3.5 mmol/L 1 Normal VBG BE ISTAT LAB L9002.2410 50-70 % High 83 VBG SO2 ISTAT LAB L9002.2415 23-33 mmol/L [address] ISTAT Performed By: #### L9000.0810 #### [facility] Point of Care [address] [place] [address] CTA CHEST W/WO Observed: 09/13/2018 Status: F Source: KIP CONTRAST 12:47 PM [facility] REPOSITORY [facility] Imaging Services [address] [place] [address] CTA Chest W/WO Contrast MR#: [id number] Acct: [id number] Name: NINFA SAM Rep #: [id number] : 1945 F 73 From: Selene Caro MD PCP: Mikey Diamond MD Status: ADM IN Study: CTA Chest W/WO Contrast Date of Exam: 09/13/18 Exam# [id number] Ordering Dr: Christian Lopez MD ADDENDUM by Selene Caro M.D. on 09/13/18 at 1432 ADDENDUM Additionally there are sizable partially visualized axillary lymphadenopathy. Electronically Signed: Selene Caro MD at 14:32 EST Tel , Service support , N.B. : The above information has been verbally conveyed by Selene Caro MD to Christian Lopez [phone], VASU, on 09/13/2018 14:31:10 (ET). 09/13/18 1432 Date cc: Mikey Diamond MD; Christian Lopez MD * Signed ADDENDUM by Selene Caro M.D. on 09/13/[address]/CTA Chest W/WO Contrast 09/13/18 1438 Date cc: Mikey Diamond MD; Christian Lopez MD * Signed STUDY: CTA CHEST REASON FOR EXAM: Female, 73 years old. Toxic concern for PE history of cancer RADIATION DOSAGE (If Supplied By Facility): CTDIvol = ( 26.74 ) mGy, DLP = ( 140.56 ) mGycm TECHNIQUE: The examination was performed with the intravenous administration of 75 ml of Isovue 370 contrast material. Post-processing of the angiographic images was performed, with multiplanar reformation and 3D reconstruction. Individualized dose optimization techniques were used for this CT. COMPARISON: September 13, 2018 chest x-ray, FINDINGS: There is a filling defect within the left upper lobe left lower branches right lower subsegmental branches segmental branches right upper branches of the pulmonary arteries consistent with pulmonary embolism. There is atherosclerotic calcification of the aortic arch with tortuosity. Vertebral artery has its takeoff from the aortic arch. There is no demonstrated aortic dissection. There is mild cardiac enlargement. There is prevascular lymphadenopathy or fluid measuring up to 3.4 x 1.4 cm. Normal hilar regions. Is a crowded appearance of the left greater than right hilum. There is a thickened appearance of the left greater the right hilum.. There is a very large left effusion with atelectasis. There is a moderate to large right effusion. There are a few scattered groundglass opacities. Normal chest wall structures. There is a focal sclerotic density at the level of T10 which in this setting may represent a focus of metastasis. There is an inhomogeneous appearance of the thyroid. There is ascites. CT/CTA Chest W/WO Contrast IMPRESSION: Findings are positive for bilateral pulmonary embolism. Large left effusion. Large right effusion. Lymphadenopathy. Abdominal ascites. Focal density in T12 focal sclerotic density vertebral body T10 suspicious for osteoblastic metastasis. N.B. : The above information has been verbally conveyed by Selene Caro MD to Christian Lopez [phone], AA, on 09/13/2018 14:31:10 (ET). Electronically Signed: Selene Caro MD at 14:20 EST Tel , Service support , CC: Mikey Diamond MD; Christian Lopez MD Scouring Machine Operator: Signed BASIC METABOLIC Collected: 09/13/2018 Status: F Source: KIP PROFILE (BMP) 12:16 PM [facility] REPOSITORY TYPE CODE TESTS RESULT OUT OF RANGE REFERENCE UNITS LAB L501.0100 74-106 mg/dL High GLU 108 Result Comment: Fasting Glucose result from 100 to 125 mg/dL suggests IMPAIRED HOMEOSTASIS per A.D.A. criteria. Please note revised GLUCOSE reference range effective 2017. LAB L501.1000 7-18 mg/dL Normal BUN 17 LAB L501.1100 0.55-1.02 mg/dL Normal CREAT,SERUM 0.75 Result Comment: The validity of the calculated GFR AND GFRAA in patients over 70 years has not been determined. Clinical correlation is essential. LAB L501.1110 >60 mL/min Normal EST GFR 81 Result Comment: Non- GFR Calc LAB L501.1115 >60 mL/min Normal EST GFR - AA 98 Result Comment: GFR Calc LAB L501.1255 ml/min Normal Estimated CRCL 41.45 LAB L501.1300 10-20 RATIO High BUN/CRE 22.8 LAB L501.2200 8.5-10 mg/dL Low .1 CA 8.4 LAB L501.5300 136-14 mmol/L Normal 5 NA 144 LAB L501.5600 3.5-5. mmol/L Normal 1 K 3.8 LAB L501.5900 98-107 mmol/L High CL 109 LAB L501.6100 21.0-3 mmol/L Normal 2.0 CO2 25.0 LAB L501.6200 5-15 Normal GAP 10 Performed By: #### L500.2500 #### [facility] [address] [place], [place], [address] CBC-COMPLETE BLOOD CNT Collected: 09/13/2018 Status: F Source: [place] NO DIFF 12:16 PM [facility] REPOSITORY TYPE CODE TESTS RESULT OUT OF RANGE REFERENCE UNITS LAB L100.1000 4.4-11.0 K/mm3 Normal WBC 7.4 LAB L100.1200 4.2-5.4 M/mm3 Normal RBC 4.97 LAB L100.1300 12.0-15.0 g/dl Normal HGB 13.6 LAB L100.1400 37-47 % Normal HCT 42.4 LAB L100.1500 81-99 fL Normal MCV 85.3 LAB L100.1600 27.0-32.0 pg Normal MCH 27.4 LAB L100.1700 32-36 g/gl Normal MCHC 32.1 LAB L100.1810 11.6-14.6 % High RDW CV 16.4 LAB L100.1820 35.1-43.9 fl High RDW SD 50.5 LAB L100.1900 150-450 K/mm3 Normal PLT 285 LAB L100.2000 6.2-12.0 fl Normal MPV 9.8 Performed By: #### L100.0500 #### [facility] [address] [place], [place], [address] PROTHROMBIN TIME W/INR Collected: 09/13/2018 Status: F Source: [place] 12:16 PM [facility] REPOSITORY TYPE CODE TESTS RESULT OUT OF RANGE REFERENCE UNITS LAB L300.4150 11.7-14.9 SECONDS Normal PROTIME 13.8 LAB L300.4200 Normal INR 1.1 Performed By: #### L300.3900, L300.4310 #### [facility] [address] [place], [address] PARTIAL THROMBOPLAST Collected: 09/13/2018 Status: F Source: [place]IP TIME 12:16 PM [facility] REPOSITORY TYPE CODE TESTS RESULT OUT OF RANGE REFERENCE UNITS LAB L300.4310 24.1-36.2 Seconds Normal PTT 29.8 Performed By: #### L300.3900, L300.4310 #### [facility] [address] [place], [address] CHEST 1 VIEW Observed: 09/13/2018 Status: F Source: KIP (PORTABLE) 12:07 PM [facility] Imaging Services [address] [place] [address] Chest 1 View (Portable) MR#: [id number] Acct: [id number] Name: NINFA SAM Rep #: [id number] : 1945 F 73 From: Selene Caro MD PCP: Mikey Diamond MD Status: REG ER Study: Chest 1 View (Portable) Date of Exam: 09/13/18 Exam# [id number] Ordering Dr: Christian Lopez MD STUDY: X-RAY CHEST REASON FOR EXAM: Female, 73 years old. Hypoxia and shortness of breath TECHNIQUE: Single AP portable view of the chest. COMPARISON: 09/01/2018 FINDINGS: There is a persistent large left effusion. There is a persistent moderate right effusion. There is incomplete visualization of the heart due to the large effusions. Normal visualized thoracic spine. Normal visualized ribs, clavicles, and shoulders. Radiopaque densities in the upper abdomen compatible with contrast in diverticula. RAD/Chest 1 View (Portable) IMPRESSION: Persistent large left effusion. Persistent moderate right effusion. Electronically Signed: Selene Caro MD at 13:26 EST Tel , Service support , CC: Mikey Diamond MD; Christian Lopez MD Scouring Machine Operator: Signed SURGERY VISIT REPORT Observed: 09/11/2018 Status: F Source: [place] 2:54 PM [facility] REPOSITORY [facility] [address] [place] [address] OFFICE VISIT Date of Service: 09/11/18 MR#: [id number] Acct: [id number] Name: NINFA SAM Rep #: [id number] : 1945 Provider: Bi Garcia MD Age/Sex: 73/F Location: [facility] Status: Signed Intake Vital Signs09/11/18 Body Mass Index (BMI) 21.1 09/11/18 Height 5 ft 3 in Intake Visit Reasons: Lymphadenopathy CT 09/10 Chief Complaint: f/u hospital, [facility] Vendor: [employer] Is patient in pain?: No Allergies No Known Allergies Allergy (Verified 09/04/18 14:18) Medications Acetaminophen [Tylenol] 162.5 mg PO PRN PRN 08/31/18 [History Confirmed 09/11/18] Albuterol Inhaler [Ventolin Hfa] 1 - 2 puff INHALATION Q4H PRN PRN #1 inhaler 09/02/18 [Rx Confirmed 09/11/18] PFSH Medical History IBS (irritable bowel syndrome) (Acute) History of hyperthyroidism (Acute) Surgical History History of thoracentesis (Acute) History of lumpectomy (Acute) Family History Mother Hypertension Cancer cervical Diabetes Father Diabetes Kidney disease Hypertension Hyperlipemia Sister Breast cancer Social History Smoking Status: Never smoker alcohol intake: never substance use type: does not use what type of physical activity do you participate in: other details: likes to garden and active. HPI HPI HPI: NINFA SAM, is a 73 F who presents to the office today for lymphadenopathy. The patient reports that this is been like this for months and she has been putting off dealing with it. She is not reporting fevers or chills ROS General General: No weight change, appetite, fatigue, colon cancer, breast cancer or weakness HEENT HEENT: No difficulty swallowing, eye injury, eye surgery, swollen glands or hoarseness Endo Endocrine: No thyroid disease, diabetes mellitus, thyroid cancer, Hair loss, heat intolerance or cold intolerance Skin Skin: No rash or changing moles Breast Breast: No left breast lump, right breast lump, nipple discharge, breast pain, abnormal mammogram, abnormal US or breast enlargement Musc Musculoskeletal: No back problems, arthritis, rheumatoid arthritis, gout or joint pain Cardio Cardiovascular: No murmur, pacemaker, heart disease, atrial fibrillation, high blood pressure, heart attack, heart stent, palpitations, shortness of breat with exertion or chest pain Additional Details: Edema bilateral leg Psych Psychiatric: No depression, anxiety or hearing voices Resp Respiratory: Yes shortness of breath, No sleep apnea, Yes cough, No COPD, No asthma, No emphysema, No wheezing Gastro Gastrointestinal: No abdominal pain, No nausea or vomiting, Yes diarrhea (occasionally ), No blood in stool, No acid reflux, No hemorrhoids, No ulcers, No gallbladder problem, No black,tarry stools, Yes constipation (occasionally ) Claude Hematologic: No blood thinners, No blood disorders, No bleeding, No anemia, No blood clots Neuro Neurologic: No system reviewed and no additional complaints, except as docu, No as per HPI, No abnormal walking, No abnormal hearing, No abnormal movements, No abnormal speech, No behavioral changes, No burning sensations, No confusion, No seizure-like activity, No unsteadiness, No dizziness, No localized weakness, No frequent falls, No headache(s), No lack of coordination, No loss of vision, No memory loss, No numbness, No other visual disturbances, No radiating pain, No restless legs, No sensory deficit, No fainting, No tingling, No tremor(s), No weakness, No other Exam Const General: cooperative Orientation: alert, oriented x3 Chest Breast Palpation: No nipple discharge Resp Effort AND Inspection: labored, audible wheezes Auscultation: breath sounds absent Cardio Rate: regular rate Rhythm: regular rhythm Heart Sounds: no murmurs GI Inspection: non-distended Palpation: soft, nontender Musc Other: Patient has axillary and inguinal lymphadenopathy. Office Procedures Biopsy Provider Documentation The patient's right groin was prepped and draped in the usual sterile fashion. A small area was anesthetized with lidocaine and a small zechariah was made with a scalpel. A 14-gauge biopsy needle was placed through this incision into the enlarged lymph node in the right groin. Several passes were performed. These were sent for fresh pathology. Pressure was held and a Steri-Strip was placed over the incision. Patient tolerated the procedure well. Biopsy Lymphnode Biopsy: 63592 Lymphnode w Needle Procedure Time Out Time Out Informed consent given: Yes Consent signed: Yes Time out checklist: patient, procedure, site marked/identified, positioning of patient, supplies available, allergies confirmed, team agrees on procedure Time out staff in room: Yes Time out verified: Yes Time out date: 09/11/18 Time out time: 14:51 Assessment AND Plan Problems 1. Generalized lymphadenopathy R59.1 Plan 1. Her needle biopsy was performed of the right inguinal lymph node. If this is nondiagnostic I will perform an excisional biopsy of a lymph node. Currently she is very short of breath due to her pleural effusions. I do not think she would do well with MAC anesthesia until these have been resolved. Bi Garcia MD Pager: [facility] [address] [place] [address] [address] [place] [address] Office: Orders Orders: Coding Level of Care Code No Charge Diagnoses Generalized lymphadenopathy R59.1 Additional Codes Biopsy - Lymphnode Biopsy: 09741 Lymphnode w Needle (28828) 09/11/18 4433 <Electronically signed by Bi Garcia MD> Date Bi Garcia MD Cosigner Signature: Date (if applicable) CC: Mikey Diamond MD LYMPH NODE BIOPSY Observed: 09/11/2018 Status: F Source: KIP 2:00 PM [facility] REPOSITORY Patient: NINFA SAM : 1945 (73/F) Acct Num: [id number] Phys: Juani Berger MD Unit Num: [id number] Loc: OMD Specimen: [id number] Received: 09/11/18 - 1430 Spec Type: LYMPH NODE TISSUES 1 TISSUES: LYMPH NODE BIOPSY COMMENT Immunohistochemistry ([id number]) supports the above diagnosis. Excisional biopsy is suggested, to rule out lymphoma, if clinically indicated. Case has been reviewed in consultation with Dr. Garcia who concurs with the above diagnosis. IDC:AM GROSS DESCRIPTION Received in fixative is one container labeled with the patient's name and designated right groin biopsy. The specimen consists of multiple irregular and elongated fragments of yellow-white soft tissue that in aggregate measure 1 x 1 x <0.1 cm. Glue Spreading Machine Operator portions are submitted for flow cytometric analysis. The remainder of the tissue is submitted in its entirety in one cassette. / AM:yolanda 09/11/18 TC:5 CPT: 97467 HEADER OPERATION: Right groin needle core biopsy PRE-OP DIAGNOSIS: Lymphadenopathy, rule out lymphoma TISSUE SUBMITTED: Needle core biopsy lymph node right groin MICROSCOPIC DESCRIPTION Slides are reviewed. MICROSCOPIC DIAGNOSIS Right groin lymph node, core biopsy: Fragments of fatty lymph node tissue, polytypic in nature. See comment. Flow cytometry study from [facility] shows CD10 positive clonal B cell population detected in a limited analysis. The complete report is viewable in patient's EMR. SJ:yolanda 09/17/18 Signed Froilan Moran 09/17/18 <signature on file> Performed By: #### PLYMN #### [facility] [place], [address] MISCELLANEOUS LAB Collected: 09/11/2018 Status: F Source: [place] PROCEDURE 2:00 PM [facility] REPOSITORY Order Comment: Comments: [id number] Right groin lymphadenopathy Test(s) Ordered: Flow [id number] TYPE CODE TESTS RESULT OUT OF RANGE REFERENCE UNITS LAB L801.1541 Normal [facility] FLOW SEE PATH TEST Performed By: #### L801.1541 #### [facility] [address] [place], [address] ONCOLOGY HISTORY AND Observed: 09/11/2018 Status: F Source: [place] PHYSICAL 1:16 PM [facility] REPOSITORY [facility] Medical Records Department [address] [place] [address] History and Physical 09/11/18 1151 MR#: [id number] Acct: [id number] Name: NINFA SAM Rep #: [id number] : 1945 73 From: Juani Berger MD PCP: Mikey Diamond MD Status: REG RCR Y Location: OMD - Problem List (1) Generalized lymphadenopathy Status: Acute (2) Pleural effusion, bilateral Status: Acute Subjective Date of Service:: 09/11/18 Chief Complaint: Dyspnea History of Present Illness: Patient is a 73-year-old female who over the course of the past 6-12 months has noted fluctuating painlessly enlarging lymph nodes in her axillae and groins. Over the past 6 months she has noted steady weight loss going from size 6-8 to current size 4. She did not seek medical attention until late August 2018 when she experienced increasing dyspnea. August 31, 2018: Chest x-ray revealed bilateral pleural effusions. September 01, 2018: Thoracocentesis 1070 mL of macy-colored fluid was drained, fluid cytology negative for malignancy. September 10, 2018: CT abdomen and pelvis: MPRESSION: 1. Large left-sided pleural effusion and moderate sized right- sided effusion. 2. Bilateral lower lobe atelectasis. 3. 1.4 cm probable cyst of the posterior right hepatic lobe. 4. Mild right hydronephrosis. 5. Severe sigmoid diverticulosis. 6. Extensive retroperitoneal, deep pelvic/iliac chain, and bilateral inguinal adenopathy. 7. Small amount of pelvic ascites. 8. Increased subcutaneous fatty stranding suggestive of anasarca. 9. Sclerotic focus of the T10 body which may represent metastatic lesion. Power of Vendor Manager: No Living Will: No Health History: Past Medical History (Last Reviewed 09/11/18 @ 11:09 by Asuncion Vicente) IBS (irritable bowel syndrome) (Acute) History of hyperthyroidism (Acute) Past Surgical History (Last Updated 09/11/18 @ 11:09 by Asuncion Vicente) History of thoracentesis (Acute) History of lumpectomy (Acute) Family History (Last Reviewed 09/11/18 @ 11:04 by Asuncion Vicente) Mother Hypertension Cancer Diabetes Father Diabetes Kidney disease Hypertension Hyperlipemia Sister Breast cancer Allergies/Adverse Reactions: Allergy/AdvReac Type Severity Reaction Status Date / Time No Known Allergies Allergy Verified 09/04/18 14:18 Risk Factors Social History Smoking Status Never smoker Tobacco Risk Data: Tobacco Risk Smoking Status Never smoker Type of tobacco: Smokeless tobacco usage: Items/Day: Year started: Years used: Counseled to quit/cut down: Reason for no counseling performed: Reason for no pharmacotherapy: Tobacco use comments: Passive smoke exposure: Substance Risk Drug use: No Caffeine use [drinks/day]: 0 Alcohol use: No Type of alcohol: Drinks per day: Has patient felt the need to cut down: Has the patient been annoyed by complaints: Has the patient felt guilty about drinking: Has the patient needed an eye senior licensing manager in the mornings: Comments: Review of Systems Constitutional:: Reports: Weakness, Fatigue, Weight loss, Appetite change. Denies: Fever, Sweats, Chills Cardiovascular:: Reports: Dyspnea on exertion, Shortness of breath. Denies: Chest pain, Palpitations, Orthopnea, PND Respiratory: Reports: Shortness of Breath, Shortness of breath upon exertion. Denies: Cough, Hemoptysis, Wheezing Gastrointestinal:: Denies: Abdominal pain, Nausea, Vomiting, Diarrhea, Constipation, Hematochezia Genitourinary: Denies: Dysuria, Hematuria, 15, Flank pain Musculoskeletal:: Denies: Back pain, Myalgia, Arthralgia Skin: Denies: Rash, Skin Changes, Wounds Neurological:: Denies: Headache, Dizziness, Visual changes, Tinnitus, Hearing loss Psychiatric: Denies: Anxiety, Depression, Homicidal Ideations, Suicidal Ideations Comment: She is aware of painless fluctuating enlarged lymph nodes in axillae and groins 6-12 months Vital Signs Height 5 ft 3 in Weight: 54.068 kg Weight in Pounds 119.2 lbs Pulse Ox 95 - Physical Exam General: Alert, Oriented x3, No apparent distress, - - Elderly and frail but in no acute distress, on oxygen, ECOG 2 HEENT: Atraumatic, PERRLA, EOMI, Normocephalic Oropharynx:: Dry mucosa Neck:: Supple, Trachea midline. Negative for: JVD, bilateral Cardiac:: Regular rate, Regular rhythm, Normal S1, Normal S2. Negative for: Murmur Lungs: Clear to auscultation, Diminished - On both sides consistent with moderate sized pleural effusions, Excusion symmetrical. Negative for: Rhonchi, Wheezes Abdomen:: Soft, Non-tender, Non-distended. Negative for: Hepatosplenomegaly Extremities:: Negative for: Cyanosis, Edema Neurological: Neuro grossly intact Skin:: Negative for: Lesions, Rash, Petechiae, Ecchymosis Psychiatric:: Appropriate affect, Euthymic Lymphatics:: Axillary lymphadenopathy - 2-3 cm enlarged lymph nodes in both axillae, in the left axilla there is a subcutaneous nodule measuring 3 cm in diameter that is attached by a narrow stalk to the axilla., Inguinal lymphadenopathy - Bulky bilateral inguinal adenopathy. Negative for: Cervical lymphadenopathy, Supraclavicular lymphadenopathy Diagnostic Data: I personally reviewed patient's CT scan images of September 2018 and concur with the findings Assessment and Plan 73-year-old female who presents with increasing adenopathy over the course of the past year or so and recent dyspnea requiring oxygen supplementation and bilateral pleural effusions with a negative cytology. On clinical grounds this is most consistent with a lymphoproliferative malignancy, less likely metastatic carcinoma. Plan: 1. Lymph node biopsy, referred to surgery and will be seen this afternoon. 2. Once diagnosis is confirmed malignant PET/CT, bone marrow biopsy, CBC, CMP, LDH and hepatitis serologies will be obtained. 3. She appears to have a rapidly recurring symptomatic pleural effusion and will be referred for an elective repeat therapeutic thoracocentesis in the upcoming week. Primary Care Provider: Mikey Diamond MD Referring Provider: 09/11/18 1316 <Electronically signed by Juani Berger MD> Date Juani Berger MD Cosign Signature: Date (if applicable) CC: Mikey Diamond MD; Juani Berger MD Signed IMMUNOHISTOCHEMISTRY Observed: 09/11/2018 Status: F Source: [place] 12:00 [facility] REPOSITORY Patient: NINFA SAM : 1945 (73/F) Acct Num: [id number] Phys: Juani Berger MD Unit Num: [id number] Loc: OM Specimen: [id number] Received: 09/14/18 1264 Spec Type: IMMUNO TISSUES 1 TISSUES: Inguinal lymph node, NOS SPECIMEN INFORMATION: Tissue Source: Lymph node right groin, needle core biopsy Clinical Info: Lymphadenopathy Specimen Number: [id number] CPT code: 91402, 81620 x4 METHODOLOGY: Deparaffinized sections of prefer/formalin-fixed tissue or PAP/DQ stained slides are incubated with monoclonal/polyclonal antibodies/oligonucleotide probes. Localization is made via biotin free immunoperoxidase method. Appropriate controls are performed and reacted as expected. Results on target cell population are indicated in the following table: RESULTS: ANTIBODY / CLONE RESULT CD3 (PS1) positive CD5 (SP10) positive CD45 (RP2/18) positive CD20 (L26) positive, a few cells CD79a (11E3) positive, a few cells These tests were developed and their performance characteristics determined by [facility]. They may not have been cleared or approved by the U.S. Food and Drug Administration. The FDA has determined that such clearance or approval is not necessary. INTERPRETATION: Lymph node right groin, needle core biopsy: Consistent with fragments of fatty lymph node tissue, polytypic in nature. SJ:yolanda 09/15/18 PHYS[facility]STIT[facility] [address] [address] Signed Froilan Moran 09/17/18 <signature on file> Performed By: #### PIMM #### [facility] [address] [place], [address] ABDOMEN/PELVIS WITH Observed: 09/10/2018 Status: F Source: [place] CONTRAST 2:50 PM [facility] REPOSITORY [facility] Imaging Services [address] [place] [address] Abdomen/Pelvis WITH Contrast MR#: [id number] Acct: [id number] Name: NINFA SAM Rep #: [id number] : 1945 F 73 From: Luke Tong MD PCP: Mikey Diamond MD Status: REG CLI Study: Abdomen/Pelvis WITH Contrast Date of Exam: 09/10/18 Exam# [id number] Ordering Dr: Mikey Diamond MD STUDY: CT ABDOMEN AND PELVIS WITH CONTRAST REASON FOR EXAM: Female, 73 years old. Pelvic lumps and abdominal pain RADIATION DOSAGE (If Supplied By Facility): CTDIvol = ( 11.85 ) mGy, DLP = ( 915.17 ) mGycm TECHNIQUE: Transaxial images were obtained from the dome of the diaphragm to the symphysis pubis with oral contrast. 100 ml of Isovue 300 contrast was administered. Sagittal and coronal images were reconstructed. Individualized dose optimization techniques were used for this CT. COMPARISON: None. FINDINGS: There is a large left-sided pleural effusion and moderate- sized right-sided effusion. There is bilateral lower lobe atelectasis. There are calcified mediastinal nodes. There is mild cardiomegaly. There is no pericardial effusion. There is a low-attenuation 1.4 cm focus of the posterior right hepatic lobe most likely representing a cyst. Normal gallbladder and extrahepatic biliary system. Normal spleen. Normal pancreas. The adrenals are poorly visualized. There is a mild right hydronephrosis. Normal left kidney. Normal visualized stomach. Normal small intestine. There is severe sigmoid diverticulosis. The appendix is visualized and appears normal. There are calcified plaques of the abdominal aorta. The abdominal aorta and IVC are encased by extensive retroperitoneal adenopathy. Adenopathy of the deep pelvic/iliac chains and bilateral inguinal regions is also noted. The largest left inguinal node measures 2.6 x 1.4 cm. The largest right inguinal node measures 3.3 x 5.3 cm. Normal urinary bladder. There is a small amount of pelvic ascites. There is increased subcutaneous fatty stranding suggestive of anasarca. There is a sclerotic focus of the T10 body. CT/Abdomen/Pelvis WITH Contrast IMPRESSION: 1. Large left-sided pleural effusion and moderate sized right-sided effusion. 2. Bilateral lower lobe atelectasis. 3. 1.4 cm probable cyst of the posterior right hepatic lobe. 4. Mild right hydronephrosis. 5. Severe sigmoid diverticulosis. 6. Extensive retroperitoneal, deep pelvic/iliac chain, and bilateral inguinal adenopathy. 7. Small amount of pelvic ascites. 8. Increased subcutaneous fatty stranding suggestive of anasarca. 9. Sclerotic focus of the T10 body which may represent metastatic lesion. Electronically Signed: Luke Tong MD at 17:00 EST , Service support , CC: Mikey Diamond MD Scouring Machine Operator: Signed PULMONARY VISIT REPORT Observed: 09/04/2018 Status: F Source: [place] 7:34 PM [facility] REPOSITORY [facility] 09 [address] [place] [address] OFFICE VISIT Date of Service: 09/04/18 MR#: [id number] Acct: [id number] Name: NINFA SAM Rep #: [id number] : 1945 Provider: Carina Ross Age/Sex: 73/F [place] [facility] [place] Status: Signed Assessment AND Plan 1. Axillary lymphadenopathy R59.0 Plan New. Highly suspicious for cancer, despite pleural fluid returning negative for malignancy. Discussed with the patient and her daughter that repeating a thoracentesis may yield alternative results. Given that the patient has lymphadenopathy not only in her under arm/axillary area but also in her groin I would like to obtain a PET scan. If the PET scan cannot be completed the patient will at least require a CT scan of the chest with contrast, in addition to a CT of scan of the abdomen and pelvis with and without contrast. She will also need a biopsy of at least 1 of these lymphadenopathies. We will plan to contact the patient to be added on for a short interval follow-up to discuss pathology and develop a plan. We did introduce the idea that an oncologist may be necessary and the patient has already decided that if ecology needs to be consulted she would like to stay at [place] and be treated by the [place] [facility]. Orders Orders: 2. Shortness of breath R06.02 Plan Likely related to the pleural effusion. She has been encouraged to monitor her shortness of breath and if it begins to return or worsen contact the office and we will repeat a chest x-ray to evaluate for returning pleural effusion. She was educated that this effect may return, at which time additional testing could be done to further help diagnose. 3. Pleural effusion, left J90 Plan Stable at this moment. She does have submental oxygen at home to be used as needed. Follow-up in the office in the next couple of weeks. Plan to follow- up with Dr. Norman at least at 1 month, likely before. Contacted the PCP to make sure that we are all on the same page. Orders Orders: Plan Detail Follow Up 1 Month ([facility]) [facility] FU: Chief Complaint: None. HPI Comments Details: This is a 73 year old very pleasant F, currently under the care of Dr. Diamond, here to follow up after a recent hospitalization at [facility], from August 31 - September 02, 2018 for left pleural effusion with lymphocytic exudative pleural fluid, hypoxia, multiple masses including left axillary, bilateral pelvis suspicious for malignancy, hypertensive urgency and moderate to severe protein caloric malnutrition. The hospital stay was complicated by temporary hypoxia requiring oxygen. 23 pages of hospital documentation was reviewed, and found to be significant for chest x-ray completed on September 01 showing no pneumothorax status post thoracentesis, ultrasound-guided thoracentesis completed on September 01, cytology returned and is negative for malignant cells. Upon discharge, the patient ordered albuterol nebulizer. She has used the albuterol nebulizer occasionally, has not found to be very effective in reducing her shortness of breath. Patient presents to the office ambulatory, on room air and accompanied by her daughter. She reports that she feels much better since hospital discharge. She was experiencing significant shortness of breath and chest tightness. This has since almost completely resolved. She reports just minor shortness of breath on exertion at this time and denies any chest tightness, wheezing or chest congestion. She has an occasional dry cough but denies any sputum production or hemoptysis. She does report lower extremity edema, the right foot and leg are greater than the left foot and leg. This has been ongoing for the past month or longer. The patient also reports an inflamed area under the left arm that has been enlarged for approximately 3 months. She states that in the past year she has had small bumps swelling and resolving. She has noted some under the right arm that have gone away, as well as on the neck that have resolved. She also reports that 3 months ago she found a tick that had been embedded in her private areas. She also noted a rash at that same time, but states that she occasionally has a rash when she eats something that does not agree with her. She denies ever seeing a bull's-eye type rash. She denies any fever, chills or body ache. She does report a 10 pound weight loss in the past 6 months. She denies any hemoptysis, hematemesis, hematochezia or melena stools. She denies any easy bruising. Intake Vital Signs09/04/18 Body Mass Index (BMI) 20.9 09/04/18 Height 5 ft 1 in 09/04/18 Weight: 119 lb Intake Visit Reasons: Hospital [facility] Vendor: [employer] Accompanied by: Daughter Allergies No Known Allergies Allergy (Verified 09/04/18 14:18) Medications Acetaminophen [Tylenol] 162.5 mg PO PRN PRN 08/31/18 [History Confirmed 09/04/18] Albuterol Inhaler [Ventolin Hfa] 1 - 2 puff INHALATION Q4H PRN PRN #1 inhaler 09/02/18 [Rx Confirmed 09/04/18] [facility] Medical History IBS (irritable bowel syndrome) (Acute) History of hyperthyroidism (Acute) Surgical History History of lumpectomy (Acute) Family History Mother Hypertension Cancer cervical Diabetes Father Diabetes Kidney disease Hypertension Hyperlipemia Sister Breast cancer Social History Smoking Status: Never smoker alcohol intake: never substance use type: does not use what type of physical activity do you participate in: other details: likes to garden and active. Review of Systems Const CONSTITUTIONAL: Positive fatigue; negative anorexia, body ache, chills, daytime sleepiness, fever(s), night sweats, oral thrush, stops breathing during sleep, weight loss, sleeping in chair, weight loss, weight gain, frequent colds, seasonal allergies, other, headache(s) or orthopnea EETM Ear Nose Throat Mouth: Positive hearing normal, hoarseness and nasal discharge; negative hard of hearing, dry mouth in morning, change in vision, itchy eyes, eye pain, swallowing Difficulty, ear pain, nose bleed, headache(s), mouth pain, nasal congestion, post nasal drip, sinus pain, sinus pressure, sore throat or other Cardio Cardiovascular: Positive edema Location: lower extremity Right/Left: Left leg swelling: pitting pitting: +2, Right leg swelling: pitting pitting: +3; negative chest pain, chest pain at rest, chest pain with activity, irregular heart rhythm, shortness of breath when lying down, palpitations, murmur or other Resp Respiratory: Positive as per HPI, shortness of breath shortness of breath: Positive with activity and cough cough: Positive non-productive; negative pain with cough, wheezing, chest congestion, chest tightness, pain on inspiration, inhalers, increase use of rescue inhalers, snoring, apnea or other Gastro Gastrointestional: Negative bloody stools, change in appetite, difficulty swallowing, reflux, hematemesis, melena stool, loose stool, constipation or other Genitourinary: Negative blood in urine, nocturia, pain with urination or other Musc Musculoskeletal: Negative body pain, back pain, neck pain or other Skin/Breast Skin/Breast: Negative dry skin, itching, rash, unusual bruising, breast lump or other Neuro Neurological: Negative restless legs, confusion, weakness or other Psych Psychocological: Negative abnormal sleep pattern, anxiety, thoughts of hurting self/others, hopelessness or other Lymph Lymphatic: Negative easy bleeding, easy bruising or other Exam Const Constitutional: Positive conversant, cooperative, in no acute respiratory distress, well developed, well nourished, good hygiene and thin Head Head: Positive normocephalic and atraumatic; negative cyanosis of lips/distal nose Eyes Eye: Positive clear conjunctiva; negative nystagmus or scleral abnormality Ears Ear: Positive hearing normal and external ears normal; negative hard of hearing Nose Nose: Positive external nose normal and no nasal discharge; negative epistaxis Mouth Mouth: Positive oral mucosae normal, no lesions and posterior oropharynx is adequate; negative post nasal drip, malodorous breath or oral thrush present Mallampati Score: I: Mallampati Score Neck Neck: Positive normal visual inspection, full ROM and trachea midline; negative lymphadenopathy, JVD or tender Chest Wall Chest: Positive normal inspection of the chest and symmetric chest movement; negative increased A/P diameter Resp lung sounds: Positive clear to auscultation, good air exchange, normal expiratory time and normal respiratory effort; negative diminished, wheezes, rhonchi, rales, dullness to percussion or wheeze present on forced exhalation Cardio Cardiac: Positive regular rate, regular rhythm, S1 normal and S2 normal; negative murmur GI GI: Positive normal to inspection; negative distended Genitourinary: Positive deferred Musc Musculoskeletal: Positive steady gait and ROM normal; negative kyphosis or scoliosis Skin Pulmonary Skin Exam: Positive intact; negative rash Pulses Pulse: Yes pulses normal x4 extremities Extremities Extremities: Yes capillary refill normal, No clubbing, No cyanosis, Yes edema Location: lower extremity location: Right pitting +3, Left pitting +2 Neuro Neurologic: Yes conversant, Yes no focal neuro deficits, Yes normal concentration, Yes cooperative, Yes understands questions, No tremor, Yes normal cognition, Yes normal coordination Lymph Lymphatic: No tenderness, No cervical adenopathy, Yes axillary adenopathy Psych Appearance: Positive grossly normal, eye contact and well kempt Mental Status: Positive mental status grossly normal Mood: Positive congruent mood Affect: Positive normal affect Coding Level of Care Code Off vis,est,level 4 Diagnoses Axillary lymphadenopathy R59.0 Shortness of breath R06.02 Pleural effusion, left J90 09/04/181933 <Electronically signed by Carina HERNANDEZC> Date Carina Ross PLAY[employer] ASSISTANT-C Cosigner Signature: Date (if applicable) CC: Mikey Diamond MD LYME SCREEN W/REFLEX Collected: 09/04/2018 Status: F Source: [facility] 3:28 PM [facility] REPOSITORY TYPE CODE TESTS RESULT OUT OF RANGE REFERENCE UNITS LAB L7000.5400 0.00-0.90 ISR Normal LYME SCN <0.91 AB Result Comment: Negative <0.91 Equivocal 0.91 - 1.09 Positive >1.09 Performed at: [facility] [id number] Lab Engineer: Earnest Milligan PhD, Phone: [phone] LAB L7000.7032 Normal LYME SCN REF INTERP LAB Performed By: #### L7000.5300 #### [facility] (refer to report for specific site) refer to report for address and phone number LYME AB/TOTAL IMMUNO Collected: 09/04/2018 Status: F Source: [facility] 3:28 PM [facility] REPOSITORY TYPE CODE TESTS RESULT OUT OF RANGE REFERENCE UNITS LAB L3300.4700 0.00-0.90 ISR Normal LYME AB < 0.91 51963 Result Comment: Negative <0.91 Equivocal 0.91 - 1.09 Positive >1.09 Performed at: [facility] [id number] Lab Engineer: Omar Canales MD, Phone: [phone] Performed at: [facility] [id number] Lab Engineer: Earnest Milligan PhD, Phone: [phone] Performed By: #### L3300.4700, L7000.5800 #### [facility] (refer to report for specific site) refer to report for address and phone number LYME ANTIBODIES,W BLOT Collected: 09/04/2018 Status: F Source: [facility] 3:28 PM [facility] REPOSITORY TYPE CODE TESTS RESULT OUT OF RANGE REFERENCE UNITS LAB L7000.5920 . Normal P93 Ab Absent LAB L7000.5940 . Normal P66 Ab Absent LAB L7000.5960 . Normal P58 Ab Absent LAB L7000.5980 . Normal P45 Ab Absent LAB L7000.6000 . Normal P41 Ab Absent LAB L7000.6020 . Normal P39 Ab Absent LAB L7000.6040 . Normal P30 Ab Absent LAB L7000.6060 . Normal P28 Ab Absent LAB L7000.6080 . Normal P23 Ab Absent LAB L7000.6100 . Normal P18 Ab Absent LAB L7000.6200 . Normal LYME IgG Negative INTERP Result Comment: Positive: 5 of the following Borrelia-specific bands: 18,23,28,30,39,41,45,58, 66, and 93. Negative: No bands or banding patterns which do not meet positive criteria. LAB L7000.6320 . Normal P41 Ab Absent LAB L7000.6340 . Normal P39 Ab Absent LAB L7000.6360 . Normal P23 Ab Absent LAB L7000.6400 . Normal LYME IgM Negative INTERP Result Comment: Note: An equivocal or positive EIA result followed by a negative Western Blot result is considered NEGATIVE. An equivocal or positive EIA result followed by a positive Western Blot is considered POSITIVE by the CDC. Positive: 2 of the following bands: 23,39 or 41 Negative: No bands or banding patterns which do not meet positive criteria. Criteria for positivity are those recommended by CDC/ASTPHLD. p23=Osp C, f24=zngrpnlup Note: Sera from individuals with the following may cross react in the Lyme Western Blot assays: other spirochetal diseases (periodontal disease, leptospirosis, relapsing fever, yaws, and pinta); connective autoimmune (Rheumatoid Arthritis and Systemic Lupus Erythematosus and also individuals with Antinuclear Antibody); other infections ([place] Spotted Fever; Noman-Bush Virus, and Cytomegalovirus). Performed By: #### L3300.4700, L7000.5800 #### [facility] (refer to report for specific site) refer to report for address and phone number 12 LEAD ELECTROCARDIOGRAM Observed: 09/04/2018 Status: F Source: [facility] 9:28 AM [facility] REPOSITORY [facility] Cardiovascular Services [address] [place] [address] 12 Lead EKG 08/31/18 1512 MR#: [id number] Acct: [id number] Name: NINFA SAM Rep #: [id number] : 1945 73 From: Je Kan MD Attending Dr: Faye Dunbar MD Status: DIS IN Ordering Dr: Jocelyn Marquez MD Date: 08/31/18 Location: [facility] Sex: F C Admitted: 08/31/18 Test Reason : Blood Pressure : / mmHG Vent. Rate : 089 BPM Atrial Rate : 089 BPM P-R Int : 126 ms QRS Dur : 076 ms QT Int : 350 ms P-R-T Axes : 041 052 040 degrees QTc Int : 425 ms Normal sinus rhythm with sinus arrhythmia Low voltage QRS Cannot rule out Anterior infarct (cited on or before 01-FEB-2006) Abnormal ECG Confirmed by LORETA ALEX, JE ([id number]), newspaper or periodical editor KOKO DERAS ([id number]) on 09/02/2018 4:26:49 PM Referred By: JOSEF Confirmed By:JE KAN MD 09/02/18 1626 Date Je Kan MD CC: No Primary Care Physician; Jocelyn Marquez MD; Faye Dunbar MD Signed DISCHARGE SUMMARY Observed: 09/02/2018 Status: F Source: [facility] 4:19 PM [facility] REPOSITORY [facility] Medical Records Department [address] [place] [address] Discharge Summary 09/02/18 1030 MR#: [id number] Acct: [id number] Name: NINFA SAM Rep #: [id number] : 1945 73 From: Tri Chester [employer] ASSISTANT-C PCP: Care Physician, No Primary Status: DIS IN Y Location: MS3 [id number] <Tri [place] - Last Filed: 09/02/18 11:45> Discharge Date and Diagnosis Date of Admission: 08/31/18 Date of Discharge: 09/02/18 - Primary Discharge Diagnosis Active and Suspected Problems 1. Left pleural effusion with lymphocytic exudative pleural fluid 2. Acute hypoxia, secondary to #1 3. Multiple masses including left axillary, bilateral pelvis- suspicious for malignancy 4. Hypertensive urgency, resolved 5. Moderate to severe protein calorie malnutrition - Secondary Discharge Diagnosis Chronic Problems Weight loss, non-intentional (Chronic) Hospital Course and Treatment Imaging Results: Diagnostic Data Chest X-Ray 09/01/18 14:01 IMPRESSION: Status post left thoracentesis. There is no evidence of pneumothorax. Electronically Signed: Chris Alfaro MD at 15:00 EST Tel [phone], Service support , Thoracentesis Ultrasound 09/01/18 18:45 IMPRESSION: Ultrasound-guided left thoracentesis. Electronically Signed: Chris Alfaro MD at 14:26 EST Tel [phone], Service support , Dr. Norman- Pulmonary Operations: None Procedures: 2-D Echocardiogram Summary of Care Provided: The patient is a 73 year old F admitted 08/31/2018 due to shortness of breath. 1. Left pleural effusion/Acute hypoxia-chest x-ray on admission with bilateral effusions, greater on the left with bibasilar consolidation. Small dense nodule in the right lower lobe. Ultrasound-guided thoracentesis completed, fluid preliminary showing lymphocytic exudative. Pulmonary consulted. Final lab studies pending. Patient will follow up with pulmonary medicine on 09/04/2018 for further results and recommended plan of care. Patient required supplemental oxygen with ambulation. She is ambulatory in the home. She will be discharged with home oxygen, to maintain O2 at or above 90%. Instructed patient to obtain pulse oximeter for further monitoring at home. 2. Lower extremity swelling/bilateral axial and groin masses, unclear etiology-Duplex ultrasound negative for DVT. Echocardiogram showed an EF of 65%, small pericardial effusion, no indications of cardiac tamponade, RVSP estimated to be 49 mmHg, no evidence of diastolic dysfunction.. Recommend biopsy left axillary mass, this can be completed as outpatient. 3. Hypertensive urgency-blood pressure greater than 200 systolically on admission. Resolved. 4. Moderate to severe protein calorie malnutrition-recommend continued ensure supplementation 3-4 times daily. General: Alert, Oriented x3, Cooperative HEENT: Atraumatic, PERRLA, EOMI, Normocephalic Oral: Moist Mucosa Neck: Supple, No JVD, Negative Carotid Bruits Lungs: Clear to auscultation, Diminished Cardiovascular: Regular rate, Regular Rhythm, Normal S1, Normal S2, No murmurs Abdomen: Bowel Sounds Present, Soft, Non Tender, Non-Distended Extremities: No clubbing, No cyanosis, Capillary Refill Less than 3 Seconds, Edema - Bilateral lower extremity edema, right greater than left. Skin: No rashes, No breakdown, Left axillary mass, bilateral groin/pelvic masses. Musculoskeletal: No Tenderness to Palpation of Joints or Extremities Neurological: Cranial nerves II-XII grossly intact, Neuro grossly intact Psych/Mental Status: Normal Affect, Appropriate Patient seen and examined prior to discharge. Physical assessment as noted above. Patient stable for discharge home with close follow-up as noted above. This patient was seen by [place] Kilne under the supervision of Dr. Dunbar. - Physical Exam Vital Signs Temp Pulse Resp BP Pulse Ox 98.1 F 99 16 140/75 H 90 09/02/18 10:06 09/02/18 10:06 09/02/18 10:06 09/02/18 10:06 09/02/18 10:06 Oxygen Flow Rate (L/min) [5] 2 Oxygen Flow Rate (L/min) [4] 2 Oxygen Flow Rate (L/min) [3] 2 Oxygen Flow Rate (L/min) [2] 2 Oxygen Flow Rate (L/min) [1 ( 2 Initial Baseline)] Oxygen Flow Rate (L/min) 2 Oxygen Delivery Method [5] Nasal Cannula Oxygen Delivery Method [4] Nasal Cannula Oxygen Delivery Method [3] Nasal Cannula Oxygen Delivery Method [2] Nasal Cannula Oxygen Delivery Method [1 ( Nasal Cannula Initial Baseline)] Oxygen Delivery Method Room Air Weight: 117 lb 15.157 oz Body Mass Index (BMI) 20.9 Intake and Output for Last 24 Hours Intake Total 560 / 560 700 / 700 Output Total 600 / 600 Balance -40 / -40 700 / 700 Laboratory Tests Past 24 Hrs Sodium Potassium Chloride Carbon Dioxide Sodium 145 Potassium 4.1 Chloride 113 H Carbon Dioxide 25.0 Anion Gap 7 BUN 16 Creatinine 0.69 Estim Creat Clear Calc 41.45 Est GFR (MDRD) Af Amer 107 Discharge Diet: No Restrictions Discharge Activity: Return to Normal Activity Call your doctor if you observe: Shortness of breath, Dizziness, Fainting spells, Chest pain Home Medications: Medications to take at Discharge Acetaminophen [Tylenol] 162.5 mg PO PRN PRN 08/31/18 Albuterol Inhaler [Ventolin Hfa] 1 - 2 puff INHALATION Q4H PRN PRN #1 inhaler 09/02/18 Following Prescrptions Were Given to Patient: Albuterol Inhaler [Ventolin Hfa] 1 - 2 puff INHALATION Q4H PRN PRN #1 inhaler PRN Reason: Shortness Of Breath Primary Care Physician: Care Physician,No Primary [Primary Care Provider] - Please Follow Up With: Mikey Diamond MD - Call to establish with Primary Care Provider When: 1 Week Please Follow Up With: Carina Ross NP-C - Pulmonary Medicine When: 09/04/18 at 2:15pm Disposition: Home Minutes spent on discharge:: 35 Patient Condition:: Fair Medical Necessity - Tobacco Use Smoking Status: Never smoker Meaningful Use Info Meaningful Use Diagnoses (Choose all that apply): None applicable <Faye Dunbar - Last Filed: 09/02/18 16:19> Discharge Date and Diagnosis - Secondary Discharge Diagnosis Chronic Problems Weight loss, non-intentional (Chronic) Hospital Course and Treatment Summary of Care Provided: Patient seen by Tri MCPHERSON under my supervision. The patient is a 73 year old F admitted through the ED with a complaint of SOB, which had been ojngoing for the last few months and worsened in the last week. She had associted left axillary tumour as well as pelvic area swelling nad bilateral LE swelling. She was admitted and managed for shortness of breath due to left pleural effusion.CXR on admission showed bilateral effusions, greater on the left, with bibasilar consolidation. Duplex of her LEs were negative. She had thoracentesis[]. Analysis of effusion showed it was an exudate and lymphocytre predominant, therefore suggestive of malignancy. Pulmo was consutled. Cytology was still pending at time of discharge. She was to have CT chest, abdomen and pelvis to look for suitable biopsy locations. She was counselled that she may need further thoracentesis as there ws still fluid left in chest after thoracentesis. She was discharged home on 09/02/18, to follow up with her PCP and pulmonology. She also had hypertensive urgency which resolved with treatment. She was discharged with home oxygen and counseled to obtain a pulse oximeter. Patient seen and examined prior to discharge. she was still short of breath, but felt better. Had no fever or chills, and only coplaied of dyspnea on exertion. Review of systems was otherwise negative. o/e: Vital Signs Height 5 ft 3 in Weight: 117 lb 15.157 oz General: Alert, Oriented x3, Cooperative HEENT: Atraumatic, PERRLA, EOMI, Normocephalic Oral: Moist Mucosa Neck: Supple, No JVD, Negative Carotid Bruits Lungs: Clear to auscultation, Diminished Cardiovascular: Regular rate, Regular Rhythm, Normal S1, Normal S2, No murmurs Abdomen: Bowel Sounds Present, Soft, Non Tender, Non-Distended Extremities: No clubbing, No cyanosis, Capillary Refill Less than 3 Seconds, Edema - Bilateral lower extremity edema, right greater than left. Skin: No rashes, No breakdown, - - Left axillary mass. Musculoskeletal: No Tenderness to Palpation of Joints or Extremities Neurological: Cranial nerves II-XII grossly intact, Neuro grossly intact Psych/Mental Status: Normal Affect, Appropriate Plan as described above. Agree with rest of Tri Chester [employer] ASSIST[employer]-C's note. - Physical Exam Vital Signs Temp Pulse Resp BP Pulse Ox 98.5 F 87 18 137/83 H 92 09/02/18 13:32 09/02/18 13:32 09/02/18 13:32 09/02/18 13:32 09/02/18 13:32 Oxygen Flow Rate (L/min) [5] 2 Oxygen Flow Rate (L/min) [4] 2 Oxygen Flow Rate (L/min) [3] 2 Oxygen Flow Rate (L/min) [2] 2 Oxygen Flow Rate (L/min) [1 ( 2 Initial Baseline)] Oxygen Flow Rate (L/min) [ 2 AMBULATION with Oxygen] Oxygen Flow Rate (L/min) 2 Oxygen Delivery Method [5] Nasal Cannula Oxygen Delivery Method [4] Nasal Cannula Oxygen Delivery Method [3] Nasal Cannula Oxygen Delivery Method [2] Nasal Cannula Oxygen Delivery Method [1 ( Nasal Cannula Initial Baseline)] Oxygen Delivery Method Room Air Weight: 117 lb 15.157 oz Body Mass Index (BMI) 20.9 Intake and Output for Last 24 Hours Intake Total 560 / 560 700 / 700 Output Total 600 / 600 Balance -40 / -40 700 / 700 Microbiology Past 72 Hours 09/01/18 13:30 Gram Stain - Final Fluid - Thoracentesis Fluid Body Fluid Culture - Preliminary Laboratory Tests Past 24 Hrs Code Visit Inpatient E AND M: 16130 Disch Hosp 09/02/18 1146 <Electronically signed by Tri HERNANDEZC> Date Tri HERNANDEZC 09/02/18 1619<Electronically signed by Faye Dunbar MD> Cosigner Signature (if applicable): Date Faye Dunbar MD CC: [place]; No Primary Care Physician; Faye Dunbar MD Signed DISCHARGE INSTRUCTION Observed: 09/02/2018 Status: F Source: [place] 10:30 AM [facility] REPOSITORY [facility] Medical Records Department [address] [place] [address] Instructions for Home/Discharge Instructions 09/02/18 1021 MR#: [id number] Acct: [id number] Name: NINFA SAM Rep #: [id number] : 1945 73 From: Tri MCPHERSON PCP: Care Physician, No Primary Status: ADM IN - Discharge Diagnoses Current Active Problems: Current Active and Chronic Problems Pleural effusion, left (Acute) Weight loss, non-intentional (Chronic) You will use the following diet at home:: No restrictions, Other - Recommend ensure 3-4 times daily. Discharge Activity: Return to Normal Activity Call your doctor if you observe: Shortness of breath, Dizziness, Fainting spells, Chest pain Allergies/Adverse Reactions: Allergies No Known Allergies Allergy (Verified 08/31/18 13:35) Medications to take at Discharge Acetaminophen [Tylenol] 162.5 mg PO PRN PRN 08/31/18 Albuterol Inhaler [Ventolin Hfa] 1 - 2 puff INHALATION Q4H PRN PRN #1 inhaler 09/02/18 The following prescriptions were given: Albuterol Inhaler [Ventolin Hfa] 1 - 2 puff INHALATION Q4H PRN PRN #1 inhaler PRN Reason: Shortness Of Breath Test Results: Test results from this visit will be discussed in further detail at your follow-up appointment, if applicable. Please Follow Up With: Mikey Diamond MD - Call to establish with Primary Care Provider When: 1 Week Please Follow Up With: Carina Ross NP-C - Pulmonary Medicine When: 09/04/18 at 2:15pm Proposed Discharge Date: 09/02/18 09/02/18 1030 <Electronically signed by Tri HERNANDEZC> Date Tri MCPHERSON CC: No Primary Care Physician; Junaid Norman MD BASIC METABOLIC Collected: 09/02/2018 Status: F Source: KIP PROFILE (BMP) 5:48 AM [facility] REPOSIT[facility] TYPE CODE TESTS RESULT OUT OF RANGE REFERENCE UNITS LAB L501.0100 74-106 mg/dL Normal GLU 102 Result Comment: Fasting Glucose result from 100 to 125 mg/dL suggests IMPAIRED HOMEOSTASIS per A.D.A. criteria. Please note revised GLUCOSE reference range effective 2017. LAB L501.1000 7-18 mg/dL Normal BUN 16 LAB L501.1100 0.55-1.02 mg/dL Normal CREAT,SERUM 0.69 Result Comment: The validity of the calculated GFR AND GFRAA in patients over 70 years has not been determined. Clinical correlation is essential. LAB L501.1110 >60 mL/min Normal EST GFR 88 Result Comment: Non- GFR Calc LAB L501.1115 >60 mL/min Normal EST GFR - AA 107 Result Comment: GFR Calc LAB L501.1255 ml/min Normal Estimated CRCL 41.45 LAB L501.1300 10-20 RATIO High BUN/CRE 23.1 LAB L501.2200 8.5-10 mg/dL Low .1 CA 8.1 LAB L501.5300 136-14 mmol/L Normal 5 NA 145 LAB L501.5600 3.5-5. mmol/L Normal 1 K 4.1 LAB L501.5900 98-107 mmol/L High CL 113 LAB L501.6100 21.0-3 mmol/L Normal 2.0 CO2 25.0 LAB L501.6200 5-15 Normal GAP 7 Performed By: #### L500.2500 #### [facility] [address] [place], [address] CONSULTATION Observed: 09/02/2018 Status: F Source: [place] 5:47 AM [facility] REPOSITORY [facility] Medical Records Department [address] [place] [address] Consultation 09/01/18 1119 MR#: [id number] Acct: [id number] Name: NINFA SAM Rep #: [id number] : 1945 73 From: Junaid Norman MD PCP: Care Physician, No Primary Status: ADM IN Location: [facility] LT341-7 Problem List (1) Weight loss, non-intentional Status: Chronic (2) Pleural effusion, left Status: Acute Reason for Consult Date of Consultation: 09/01/18 Reason for Consultation: Pleural effusion History of Present Illness: The patient is a 73 year old F, with no reported past medical history, who presented to [facility] on 08/31/2018 secondary to shortness of breath and swelling of her right leg. Patient had originally attributed this to twisting her foot in the yard, but states that she has had progressing swelling of the right lower extremity. Patient had also noted increasing shortness of breath over the last month or so. Patient states currently she is having orthopnea and has noted some swelling in her groin lines. Patient has not seen a physician in several years and does not take any medications at baseline. On evaluation in the emergency room, patient was noted to have a blood pressure of 204/107, heart rate of 102 and 93% on room air. Patient was noted to have 3+ pitting edema of the right lower extremity and 2+ of the left lower extremity. Chest x-ray showed a large left-sided pleural effusion and possible nodules in the right lower lobe. Patient's blood pressure came down without acute intervention, but patient was admitted for possible thoracentesis. On my evaluation, patient reports she was somewhat improved compared to previous. Patient was on supplemental oxygen and felt this was making a difference. Patient reports that in retrospect she is probably had shortness of breath for several months. Patient states that she has had a dry type cough and a 10 pound weight loss over the last 3 months that was unintentional. Patient does have a fungating type mass noted in the left axilla. Patient is not having this evaluated by a physician. Patient states she had a similar one in her right axilla that fell off. Patient denies any previous pulmonary history. Patient denies any smoking history, PFT or being seen by a flat drier. Patient is not used inhalers in the past. Patient does report a history of a breast cyst and mass that were resected in the past. Patient states these were not cancerous. She has not had a colonoscopy and reports years since her last mammogram. Patient denies any history of previous abnormal Pap smears. Review of systems otherwise negative x10 systems. 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 Patient Problems: Active and Suspected Problems Pleural effusion, left (Acute) Objective: Chest x-ray was personally reviewed and shows a large left pleural effusion and possible small nodules on the right. - Physical Exam General: Alert, Oriented x3, Cooperative, No apparent distress, - - Thin build. Speaking in full sentences. HEENT: Atraumatic, PERRLA, EOMI, Normocephalic, - - No scleral icterus or injection noted. Oral: Moist Mucosa, No Gingival or Mucosal Lesions/ Ulcerations Neck: Supple, No JVD, No Nodes, Trachea Midline Lungs: No rhonchi, No wheeze, No rales, Diminished, - - Dullness to percussion three quarters up left chest Cardiovascular: Regular rate, Regular Rhythm, Normal S1, Normal S2, No murmurs, No rub noted, No Gallop Abdomen: Bowel Sounds Present, Soft, Non Tender, Non-Distended Extremities: No clubbing, No cyanosis, Capillary Refill Less than 3 Seconds, Edema - Bilateral lower extremities, - - Rubbery, bilobular, fungating growth noted in left axilla approximately 8 cm x 4 cm. Nontender and no erythema appreciated. Skin: No rashes, No breakdown Musculoskeletal: No Tenderness to Palpation of Joints or Extremities, Muscle Wasting Lymphatic: No Cervical, Supraclavicular, or Inguinal Adenopathy Neurological: Cranial nerves II-XII grossly intact, Neuro grossly intact, Motor Exam 5/5 strength throughout Psych/Mental Status: Alert and oriented to time, place, person, mood and affect Vital Signs Temp Pulse Resp BP Pulse Ox 37.1 C 110 H 18 155/81 H 93 09/01/18 10:51 09/01/18 10:58 09/01/18 10:51 09/01/18 10:51 09/01/18 10:51 Oxygen Flow Rate (L/min) 2 Oxygen Delivery Method Nasal Cannula Weight: 53.5 kg Body Mass Index (BMI) 20.9 Intake and Output for Last 24 Hours Intake Total 560 / 560 Output Total 600 / 600 Balance -40 / -40 Laboratory Tests Past 24 Hrs WBC 6.1 RBC 4.68 Hgb 12.9 Hct 39.7 MCV 84.8 MCH 27.6 MCHC 32.5 RDW 15.9 H Clinical Impression(s) from Imaging Studies Chest X-Ray 08/31/18 15:20 IMPRESSION: Bilateral effusions greater on the left with bibasilar consolidation. Small dense nodule in the right lower lobe most likely granulomatous process Electronically Signed: Martín Madrid MD at 16:41 EST , Service support , Assessment/Plan All Active Problems Pleural effusion, left (Acute) RECOMMENDATIONS: 1. Obtain thoracentesis 2. Wean oxygen as tolerated 3. Walking oximetry prior to discharge 4. Possible need for excision of left axillary mass 5. Outpatient pulmonary function testing 6. Possible outpatient appropriate cancer screening for age IMPRESSIONS: 1. Left pleural effusion Unclear etiology at this time. Patient has been lost to follow- up and has not seen a physician in several years. Patient is not had any screening exams. Will obtain a thoracentesis for diagnostic and therapeutic purposes. Wean oxygen as tolerated. Patient will need a walking oximetry prior to discharge. If exudative and cytology negative, excisional biopsy of left axillary mass may be necessary. If transudative, echocardiogram would likely be indicated along with right upper quadrant ultrasound. Given patient's weight loss, elevated alkaline phosphatase and left axillary mass, high clinical suspicion for possible malignancy. Further recommendations following thoracentesis. 2. Advanced age/lack of primary care/thin build/hypokalemia Complicates care, management, recovery and prognosis. Oral potassium supplementation would likely be adequate. Code Visit Inpatient E AND M: 40036 Init Hosp L2 09/02/18 0547 <Electronically signed by Junaid Norman MD> Date Junaid Norman MD Cosigner Signature (if applicable): Date CC: No Primary Care Physician; Junaid Norman MD Signed ECHOCARDIOGRAM COMPLETE Observed: 09/01/2018 Status: F Source: [place] 2:47 PM [facility] REPOSITORY [facility] Cardiovascular Services [address] [place] [address] Echo Complete 09/01/18 0823 MR#: [id number] Acct: [id number] Name: NINFA SAM Rep #: [id number] : 1945 73 From: Je Kan MD Attending Dr: Donn Gutierres DO Status: ADM IN Ordering Dr: Mat Prescott MD Date: 08/31/18 Location: [facility] Sex: F C Admitted: 08/31/18 Reason For Study: LG LEFT EFFUSION Procedure This was a 2D Doppler, Color Flow transthoracic echocardiogram. Technically difficult- pt sitting upright for exam due to SOB. The study was technically difficult. Exam performed portable in patient room. Left Ventricle Normal LV size. Left ventricular systolic function is normal. The estimated ejection fraction is 65 %. No evidence for diastolic dysfunction. No regional wall motion abnormalities noted. Right Ventricle Normal RV size. Normal systolic function. Atria Normal left atrium. Normal right atrium. No doppler evidence for ASD. Mitral Valve There is no mitral annular calcification. Normal mitral valve. Trivial mitral valve insufficiency. Tricuspid Valve Normal tricuspid valve. Mild tricuspid valve insufficiency. Right ventricular systolic pressure estimated to be 49 mmHg. Aortic Valve The aortic valve is not well visualized. Pulmonic Valve The pulmonic valve is not well visualized. Great Vessels Normal sized aortic root. Pericardium/Pleural Small pericardial effusion. There are no echocardiographic indications of cardiac tamponade. Echolucency c/w a large pleural effusion. MMode/2D Measurements AND Calculations LVIDd: 3.9 cm IVSd: 0.94 cm Ao root diam: 2.8 cm LVIDs: 2.2 cm LVPWd: 0.95 cm RVDd: 3.7 cm FS: 44.7 % LAV(MOD-bp): 34.5 ml LA A4 area: 14.3 cm2 LA dimension(2D): 2.6 cm LAV(MOD-bp) Indexed: 22.3 ml/m2 LAV(MOD-sp2): 35.4 ml LAV(MOD-sp4): 34.0 ml RA A4 area: 14.3 cm2 Time Measurements MV dec time: 0.26 sec Doppler Measurements AND Calculations MV E max bekah: 73.3 cm/sec Lat Peak E' Bekah: 8.8 cm/sec Med Peak E' Bekah: 8.7 cm/sec MV A max bekah: 106.9 cm/sec E/E' lat: 8.4 E/E' med: 8.4 MV E/A: 0.69 Ao V2 max: 162.3 cm/sec AI max bekah: 488.0 cm/sec TR max bekah: 318.9 cm/sec Ao max P.5 mmHg AI max P.3 mmHg TR max P.7 mmHg AI dec slope: 407.9 cm/sec2 AI P1/2t: 350.4 msec Interpretation Summary The study was technically difficult. Left ventricular systolic function is normal. The estimated ejection fraction is 65 %. Trivial mitral valve insufficiency. Mild tricuspid valve insufficiency. Small pericardial effusion. There are no echocardiographic indications of cardiac tamponade. Echolucency c/w a large pleural effusion. Right ventricular systolic pressure estimated to be 49 mmHg c/w moderate pulmonary hypertension. No evidence for diastolic dysfunction. Ordering Physician: Mat Prescott Performed By: Ariane Goodrich RDCS, RVT 09/01/18 1447 Date Je Kan MD CC: No Primary Care Physician; Donn Gutierres DO; Mat Prescott MD Date Dictated: 09/01/18822 Date Transcribed: 09/01/181446 Scouring Machine Operator: Signed CHEST INSP/EXP 2 VIEW Observed: 09/01/2018 Status: F Source: KIP 2:02 PM [facility] REPOSITORY [facility] Imaging Services [address] [place] [address] Chest Insp/Exp 2 View MR#: [id number] Acct: [id number] Name: NINFA SAM Rep #: [id number] : 1945 F 73 From: Chris Alfaro MD PCP: Care Physician, No Primary Status: ADM IN Study: Chest Insp/Exp 2 View Date of Exam: 09/01/18 Exam# [id number] Ordering Dr: Chris Alfaro MD STUDY: X-RAY CHEST REASON FOR EXAM: Female, 73 years old. The patient is status post left thoracentesis. TECHNIQUE: AP inspiration and expiration views were obtained. COMPARISON: Comparison is made with prior study dated August 31, 2018. FINDINGS: EKG electrodes are seen. The patient is status post left thoracentesis. Residual pleural-parenchymal changes are seen in the left hemithorax. This has improved. There is no evidence of pneumothorax. Mild pleural parenchymal changes at the right lung base. RAD/Chest Insp/Exp 2 View IMPRESSION: Status post left thoracentesis. There is no evidence of pneumothorax. Electronically Signed: Chris Alfaro MD at 15:00 EST Tel [phone], Service support , CC: No Primary Care Physician; Chris Alfaro MD Scouring Machine Operator: Signed BODY FLUID CELL Collected: 09/01/2018 Status: C Source: KIP COUNT+DIFF 1:30 PM [facility] REPOSIT[facility] Order Comment: The reference range and other method performance specifications have not been established for this body fluid. The test must be integrated into the clinical context for interpretation. TYPE CODE TESTS RESULT OUT OF RANGE REFERENCE UNITS LAB L200.3380 0.000-0.000 10 3/ul High BFTC# 0.368 Result Comment: This is the Total Number of Nucleated Cell Types in the Body Fluid. LAB L200.3500 10 3/uL Normal 0.344 WBC/BF LAB L200.3510 % Normal 7.6 BF PMN WBC% LAB L200.3515 % Normal 92.4 BF MN WBC% LAB L200.3520 10 3/uL Normal 0.318 BF MN WBC# LAB L200.3525 10 3/uL Normal 0.026 BF PMN WBC# LAB L200.4400 Normal PATH COMM/BF Reviewed Result Comment: Negative for malignant cells. Please also correlate with corresponding cytology report [id number]. Froilan Moran M.D. 09/02/18 AMENDED REPORT 09/02/18 1342 PATH COMM/BF previously reported as: May follow LAB L200.3100 SOURCE/BF THORACENTESIS Normal LAB L200.3200 COLOR/BF YELLOW Normal LAB L200.3300 APPEAR/BF CLEAR Normal LAB L200.3400 /mm3 RBC/BF 451 Normal LAB L200.3600 % PMN 19 Normal LAB L200.3700 % LYMPH 67 Normal LAB L200.3800 % MONO/BF 1 Normal LAB L200.3900 % MESOTHELIAL 10 Normal LAB L200.3950 % MACROPHAGES 3 Normal LAB L200.4420 BFM 2ND SEE COMMENT Normal SPEC Performed By: #### L200.0200 #### [facility] [address] [place], [address] GLUCOSE, BODY FLUID Collected: 09/01/2018 Status: F Source: KIP 1:30 PM [facility]POS[facility] TYPE CODE TESTS RESULT OUT OF RANGE REFERENCE UNITS LAB L503.0100 40-70 mg/dL High GLU,BF 125 Performed By: #### L503.0100, L503.0300, L504.0250 #### [facility] [address] [place], [address] PROTEIN, BODY FLUID Collected: 09/01/2018 Status: F Source: KIP 1:30 PM [facility]POS[facility] TYPE CODE TESTS RESULT OUT OF RANGE REFERENCE UNITS LAB L503.0300 Not Establ. g/dL Normal 3.6 PROTEIN,BF Performed By: #### L503.0100, L503.0300, L504.0250 #### [facility] [address] [place], [address] LDH,BODY FLUID Collected: 09/01/2018 Status: F Source: KIP 1:30 PM [facility]POS[facility] TYPE CODE TESTS RESULT OUT OF RANGE REFERENCE UNITS LAB L504.0250 Not Establ. Units/l Normal LDH,BF 185 Performed By: #### L503.0100, L503.0300, L504.0250 #### [facility] [address] [place], [address] Observed: 09/01/2018 Status: F Source: KIP CULTURE, BODY FLUID 1:30 PM [facility] Gram Stain Centrifuged Specimen? Culture performed on centrifuged specimen Gram Stain 2+ Red Cell Stroma Rare Red Blood Cells No organisms seen Body Fluid Cult No growth aerobically. Cult, Anaerobic No growth in 5 days. Performed By: #### M100.1300 #### [facility] [address] [place], [address] CYTOLOGY, BODY FLUID / Collected: 09/01/2018 Status: F Source: KIP CSF 1:30 PM [facility] REPOS[facility] TYPE CODE TESTS RESULT OUT OF RANGE REFERENCE UNITS LAB L350.1000 SEE Normal PATHOLOGY CYTOLOGY,BF REPORT /CSF Result Comment: Specimen submitted to Anatomical Pathology Department for testing. Performed By: #### L350.1000 #### [facility] [address] [place], [address] PH, BODY FLUID Collected: 09/01/2018 Status: F Source: KIP 63271 1:30 PM [facility]POS[facility] TYPE CODE TESTS RESULT OUT OF RANGE REFERENCE UNITS LAB L3800.0400 Not Estab. Normal PHBF 8.0 57437 Result Comment: This test was developed and its performance characteristics determined by [facility]. It has not been cleared or approved by the Food and Drug Administration. Performed at: - [facility] [address] [id number] Lab Engineer: Omar Canales MD, Phone: [phone] Performed By: #### L3800.0400 #### [facility] (refer to report for specific site) refer to report for address and phone number VENOUS DUPLEX LOWER Observed: 09/01/2018 Status: F Source: [place] EXTREMITY 12:13 PM [facility] REPOSITORY [facility] Cardiovascular Services [address] [place] [address] Venous Duplex - Ye Extrem 09/01/18 0825 MR#: [id number] Acct: [id number] Name: NINFA SAM Rep #: [id number] : 1945 73 From: Joe Miranda MD Attending Dr: Donn Gutierres DO Status: ADM IN Ordering Dr: Tri Chester Date: 08/31/18 Location: [facility] Sex: F C Admitted: 08/31/18 Reason For Study: BLE SWELLING R>L RIGHT LEFT GSV is normal. GSV is normal. FV is compressible, spontaneous, phasic, CFV is compressible, spontaneous, phasic, competent and demonstrates normal competent, and demonstrates normal augmentation. augmentation. POP V is compressible, spontaneous, phasic, FV is compressible, spontaneous, phasic, competent and demonstrates normal competent and demonstrates normal augmentation. augmentation. T/P Trunk is compressible. POP V is compressible, spontaneous, phasic, PTV is compressible. competent and demonstrates normal RT PerV is compressible. augmentation. CFV is compressible, spontaneous, phasic, T/P Trunk is compressible. competent and demonstrates homegenous wall PTV is compressible. thickening. LT PerV is compressible. Vascular mass noted in LT groin measuring Vascular mass(s) noted in RT groin, measuring approx 1.9 x 0.7 cm. approx 2.8 x 1.3 cm AND a second one measuring > 4.0 x 2.3 cm. Procedure Exam performed portable in patient room. The study was technically difficult. A preliminary report was called and/or faxed to [facility]. <> Interpretation Summary No evidence for acute deep venous thrombosis bilateral lower extremities with patent and compressible bilateral great saphenous veins. Probable bilateral groin adenopathy--clinical correlation is indicated Right groin: 2.8 x 1.3cm Left groin: 1.9 x 0.7 cm Ordering Physician: [place] Kline Referring Physician: TWILA PCP Performed By: Antoinette Dobson, MIRIAN, RVT 09/01/18 1213 Date Joe Miranda MD CC: [place] Chester; No Primary Care Physician; oDnn Gutierres DO Date Dictated: 09/01/18 0825 Date Transcribed: 09/01/181212 Scouring Machine Operator: Signed PROTEIN, TOTAL Collected: 09/01/2018 Status: F Source: KIP 6:54 AM [facility] REPOS[facility] TYPE CODE TESTS RESULT OUT OF RANGE REFERENCE UNITS LAB L501.1500 6.4-8.2 g/dL Low T PROT 6.0 LAB L501.1950 2.2-4.2 g/dL Normal GLOB 3.1 LAB L501.2000 0.9-2.4 RATIO Normal A/G 0.9 Performed By: #### L001.0705, L500.2500, L504.2610 #### [facility] [address] [place], [address] BASIC METABOLIC Collected: 09/01/2018 Status: F Source: KIP PROFILE (BMP) 6:54 AM [facility] TYPE CODE TESTS RESULT OUT OF RANGE REFERENCE UNITS LAB L501.0100 74-106 mg/dL High GLU 134 Result Comment: Fasting Glucose result greater than or equal to 126 mg/dL suggests DIABETES MELLITUS per A.D.A. criteria. Please note revised GLUCOSE reference range effective 2017. LAB L501.1000 7-18 mg/dL Normal BUN 14 LAB L501.1100 0.55-1.02 mg/dL Normal CREAT,SERUM 0.73 Result Comment: The validity of the calculated GFR AND GFRAA in patients over 70 years has not been determined. Clinical correlation is essential. LAB L501.1110 >60 mL/min Normal EST GFR 83 Result Comment: Non- GFR Calc LAB L501.1115 >60 mL/min Normal EST GFR - AA 100 Result Comment: GFR Calc LAB L501.1255 ml/min Normal Estimated CRCL 41.45 LAB L501.1300 10-20 RATIO Normal BUN/CRE 19.2 LAB L501.2200 8.5-10 mg/dL Low .1 CA 8.3 LAB L501.5300 136-14 mmol/L Normal 5 NA 143 LAB L501.5600 3.5-5. mmol/L Low 1 K 3.4 LAB L501.5900 98-107 mmol/L High CL 110 LAB L501.6100 21.0-3 mmol/L Normal 2.0 CO2 23.0 LAB L501.6200 5-15 Normal GAP 10 Performed By: #### L001.0705, L500.2500, L504.2610 #### [facility] [address] [place], [address] LDH Collected: 09/01/2018 Status: F Source: KIP 6:54 AM [facility] TYPE CODE TESTS RESULT OUT OF RANGE REFERENCE UNITS LAB L504.2610 84-246 U/L High LDH 316 Performed By: #### L001.0705, L500.2500, L504.2610 #### [facility] [address] [place], [address] PROTHROMBIN TIME W/INR Collected: 09/01/2018 Status: F Source: KIP 6:54 AM [facility] TYPE CODE TESTS RESULT OUT OF RANGE REFERENCE UNITS LAB L300.4150 11.7-14.9 SECONDS Normal PROTIME 14.4 LAB L300.4200 Normal INR 1.1 Performed By: #### L300.3900 #### [facility] [address] [place], [place], [address] CBC-COMPLETE BLOOD CNT Collected: 09/01/2018 Status: F Source: KIP NO DIFF 6:54 AM [facility] REPOS[facility] TYPE CODE TESTS RESULT OUT OF RANGE REFERENCE UNITS LAB L100.1000 4.4-11.0 K/mm3 Normal WBC 7.6 LAB L100.1200 4.2-5.4 M/mm3 Normal RBC 4.75 LAB L100.1300 12.0-15.0 g/dl Normal HGB 13.4 LAB L100.1400 37-47 % Normal HCT 40.6 LAB L100.1500 81-99 fL Normal MCV 85.5 LAB L100.1600 27.0-32.0 pg Normal MCH 28.2 LAB L100.1700 32-36 g/gl Normal MCHC 33.0 LAB L100.1810 11.6-14.6 % High RDW CV 16.2 LAB L100.1820 35.1-43.9 fl High RDW SD 50.2 LAB L100.1900 150-450 K/mm3 Normal PLT 316 LAB L100.2000 6.2-12.0 fl Normal MPV 10.1 Performed By: #### L100.0500 #### [facility] [address] [place], [place], [address] PARTIAL THROMBOPLAST Collected: 09/01/2018 Status: F Source: KIP TIME 6:54 AM [facility] TYPE CODE TESTS RESULT OUT OF RANGE REFERENCE UNITS LAB L300.4310 24.1-36.2 Seconds Normal PTT 33.1 Performed By: #### L300.4310 #### [facility] [address] [place], [place], [address] PROTHROMBIN TIME W/INR Collected: 09/01/2018 Status: F Source: KIP 2:08 AM [facility] Order Comment: Comments: per protocol for starting Heparin infusion TYPE CODE TESTS RESULT OUT OF RANGE REFERENCE UNITS LAB L300.4150 11.7-14.9 SECONDS Normal PROTIME 14.3 LAB L300.4200 Normal INR 1.1 Performed By: #### L300.3900, L300.4310 #### [facility] Laboratory [address] [facility] [place], [address] PARTIAL THROMBOPLAST Collected: 09/01/2018 Status: F Source: [place] TIME 2:08 AM [facility] REPOSITORY Order Comment: Comments: per protocol for starting Heparin infusion TYPE CODE TESTS RESULT OUT OF RANGE REFERENCE UNITS LAB L300.4310 24.1-36.2 Seconds Normal PTT 29.3 Performed By: #### L300.3900, L300.4310 #### [facility] Laboratory [address] [facility] [place], [address] EMERGENCY DEPARTMENT Observed: 09/01/2018 Status: F Source: [place] SUMMARY 12:26 AM [facility] REPOSITORY [facility] Medical Records Department [address] [place] [address] Emergency Department Summary 08/31/18 1509 MR#: [id number] Acct: [id number] Name: NINFA SAM Rep #: [id number] : 1945 73 From: Jocelyn Marquez MD PCP: Care Physician, No Primary Status: ADM IN - ER Visit Summary Date of Service: 08/31/18 Chief Complaint: Shortness of breath History of Present Illness: The patient is a 73 F who noted swelling to her right leg approximately 6 months or so ago after twisting her foot in the yard. She states is progressively been getting worse. She now has swelling noted to the left lower leg also and has developed shortness of breath over the past month or so. Patient states she is now the point where she is unable to lie flat because of her shortness of breath. She notes swollen cyst to the bilateral axilla and states her lower abdomen at the groin lines is swollen and distended. She has not seen a doctor in many years and thinks her last blood pressure check was approximately 20 years ago. She denies taking any medications at this time. Physical Examination: Blood pressure is 204/107, temperature 98.7, heart rate 102, respiratory rate 18, pulse ox 93% on room air. Patient is sitting upright in bed. She is speaking full sentences and in no acute distress. Head neck examination is unremarkable. Heart is regular rate and rhythm. No lung sounds are slightly diminished at the bases. Abdomen is soft with mild distention. No focal tenderness. She has palpable masses noted at both groin lines. Upper extremity examination is significant for palpable masses at the axilla bilaterally. Lower extremity examination reveals 3+ edema to the right leg and 2+ edema to the left leg. Test Results: EKG is sinus 89 with no sign of acute ischemia studies unremarkable. LFTs significant only for an alk phos of 119. BNP and troponin are negative. TSH is normal. Chest x-ray shows bilateral effusions, greater than left. Small dense nodules noted in the right lower lobe. Emergency Department Course and Treatment: Repeat evaluation patient is resting comfortably. Blood pressure at this time is 136/79 without any intervention. I recommended hospitalization. Patient will likely need thoracentesis to drain the fluid on her left lung. She will then likely require imaging to ensure no masses in her chest, axilla, or groins. At this time patient has great difficulty lying flat secondary to her pleural effusion and I feel this can be done after her thoracentesis. Treatment Plan: [] Disposition: Admit Impression: 1. Left pleural effusion 2. Bilateral axillary and groin masses This note was generated with [email or web address] dictation software. It may contain incorrect words, spelling, and punctuation that were not noted in review of the chart prior to signing ED Disposition - Plan for ED Patient: Chief Complaint: Shortness of Breath Referrals: Care Physician,No Primary [Primary Care Provider] - What to do if you have Problems For any increased pain, shortness of breath, bleeding, nausea or vomiting, chest pain, or any unexpected problems, contact your Primary Care Provider. Call [facility] ([phone]) or report to the closest Emergency Room. Call 911 if necessary. 09/01/18 0026 <Electronically signed by Jocelyn Marquez MD> Date Jocelyn Marquez MD Cosigner Signature (If Indicated): Date CC: No Primary Care Physician FLUID/WASHING Observed: 09/01/2018 Status: F Source: KIP 12:00 AM [facility] REPOSIT[facility] Patient: NINFA SAM : 1945 (73/F) Acct Num: [id number] Phys: Faye Dunbar MD Unit Num: [id number] Loc: MS3 [id number] Specimen: [id number] Received: 09/01/181420 Spec Type: Fluid TISSUES 1 TISSUES: THORACIC FLUID CYTOLOGY GROSS Received is 115 ml of cloudy yellow fluid labeled with the patient's name and and designated per the requisition as thoracentesis. Submitted for cytology preparation including cell block. / 09/01/18 TC:5 CPT: 88292, 04205 CYTOLOGY STUDY Slides are reviewed. DIAGNOSIS CYTOLOGY Thoracentesis fluid for cytology (cytospin and cell block): Negative for malignant cells. AM:rg 09/02/18 HEADER OPERATION: Ultrasound-guided left thoracentesis PRE-OP DIAGNOSIS: Left-sided effusion TISSUE SUBMITTED: Thoracentesis fluid for cytology Signed Aldair Garcia 09/02/18 <signature on file> Performed By: #### PFLU #### [facility] Laboratory [address] [place], [address] D-DIMER QUANTITATIVE Collected: 08/31/2018 Status: F Source: KIP (DVT/PE) 10:57 PM [facility] REPOSITORY TYPE CODE TESTS RESULT OUT OF RANGE REFERENCE UNITS LAB L300.8000 0.27-0.49 FEU/ug/m High alert D-DIMER 1.86 QUANT Result Comment: D-Dimer ELEVATED (>0.49): Additional studies and clinical assessments are indicated to conclude diagnosis of: Deep Vein Thrombosis (DVT) or Pulmonary Embolism (PE) CRITICAL VALUE VERIFIED. CALLED TO CHRISTOPH CARLOS 08/31/18 9034 Valeria Bain. RESULTS READ BACK BY SAME . Performed By: #### L300.8000 #### [facility] [address] [place], [address] HISTORY AND PHYSICAL Observed: 08/31/2018 Status: F Source: [place] EXAM 9:42 PM [facility] REPOSITORY [facility] Medical Records Department [address] [place] [address] History and Physical 08/31/18 1810 MR#: [id number] Acct: [id number] Name: NINFA SAM Rep #: [id number] : 1945 73 From: Tri Chester PLAYERS ASSISTANT-C PCP: Care Physician, No Primary Status: ADM IN Y Location: MS3 [id number] <Tri Chester - Last Filed: 08/31/18 18:50> Problem List (1) Pleural effusion, left Status: Acute History of Present Illness Date of Admission: 08/31/18 Chief Complaint: Shortness of breath The patient is a 73 year old F who presents emergency room due to shortness of breath. She denies cough, fever, chills. Patient states this is been developing over the last few months, worsened in the last week. She states she has been resting on pillows or sitting in a recliner to sleep at night. She complains of swelling in the bilateral axial area with left axial tumor as well as pelvic area swelling. Patient also complains of bilateral lower extremity swelling. She denies calf pain. She has not seen a doctor in over 20 years. Has not had any routine breast examination/Pap test, etc. She notes a remote thyroid issue which she states resolved without surgery. Denies any prior medical history. She does not take any daily medications. 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 Denies: Chills, Fever HEENT: Denies: Head Aches, Sinus Congestion, Sinus Drainage Cardiovascular: Reports: Edema - BLLE. Denies: Chest Pain, Light Headedness, Palpitations, Syncope Respiratory: Reports: Shortness of Breath. Denies: Cough, Sputum production Gastrointestinal: Denies: Abdominal Pain, Nausea, Vomiting Genitourinary: Denies: Dysuria Musculoskeletal: Denies: Joint Pain, Joint Tenderness Skin: Denies: Rash, Wounds Neurological: Denies: Numbness, Tingling, Focal weakness Psychiatric: Denies: Anxiety, Depression, Homicidal Ideations, Suicidal Ideations Hematologic/ Lymphatic: Denies: Easy Bruising, Easy Bleeding VTE Information - Inpt Only VTE Present on Admission: No VTE Mechan Device Prophylaxis: None VTE Pharm Prophylaxis ordered?: Yes Patient Problems: Active and Suspected Problems Pleural effusion, left (Acute) - Physical Exam General: Alert, Oriented x3, Cooperative, No apparent distress HEENT: Atraumatic, PERRLA, EOMI, Normocephalic Neck: Supple, No JVD, Negative Carotid Bruits Lungs: Diminished Cardiovascular: Regular rate, Regular Rhythm, Normal S1, Normal S2, No murmurs Abdomen: Bowel Sounds Present, Soft, Non Tender, Distended - Mild Skin: No rashes, No breakdown Lymphatic: - - Palpable masses bilateral axillary, bilateral groin. Neurological: Cranial nerves II-XII grossly intact, Neuro grossly intact Psych/Mental Status: Normal Affect, Appropriate Vital Signs Temp Pulse Resp BP Pulse Ox 98.7 F 90 26 H 136/79 H 92 08/31/18 13:32 08/31/18 17:00 08/31/18 17:00 08/31/18 17:00 08/31/18 17:00 Oxygen Delivery Method Room Air Weight: 119 lb 14.903 oz Body Mass Index (BMI) 21.2 Laboratory Tests Past 24 Hrs Assessment/Plan All Active Problems Pleural effusion, left (Acute) 1. Left pleural effusion-chest x-ray on admission with bilateral effusions, greater on the left with bibasilar consolidation. Small dense nodule in the right lower lobe. Ultrasound-guided thoracentesis with lab studies to differentiate transudative versus exudative. Pulmonary consult. 2. Lower extremity swelling/bilateral axial and groin masses- CT of chest and abdomen/pelvis following thoracentesis when able to lie flat. Stat duplex bilateral lower extremities. 3. Hypertensive urgency-blood pressure greater than 200 systolically on admission. Improved. Continue to monitor. PRN hydralazine for systolic greater than 160. DVT prophylaxis-Lovenox subcu. This patient was seen by [place] Kline under the supervision of Dr. Prescott. <Mat Prescott - Last Filed: 08/31/18 21:41> History of Present Illness Patient is short of breath for last few months along with gradually increasing leg swelling. Leg swelling started with right leg which progressed proximally about 2-3 months ago. Her left leg started swelling for past 1 week. Patient is short of breath and cannot lay flat. Patient denies any previous history of DVT/PE or family history of hypercoagulable disorder. Denies chronic cardiac condition or lung disease. Has hypothyroidism. [] Past Medical History Allergies No Known Allergies Allergy (Verified 08/31/18 13:35) Review of Systems Constitutional: Reports: Weight Change - -15 lbs Lost about 15 pounds in last 6 months, - HEENT: Denies: Head Aches, Sinus Congestion, Sinus Drainage Cardiovascular: Reports: Edema Respiratory: Reports: Shortness of Breath, Shortness of breath upon exertion Gastrointestinal: Reports: Nausea Genitourinary: Reports: Dysuria Musculoskeletal: Reports: Joint Tenderness. Denies: Joint Pain Skin: Denies: Rash Neurological: Denies: Numbness, Tingling Psychiatric: Denies: Anxiety, Depression, Homicidal Ideations, Suicidal Ideations Hematologic/ Lymphatic: Denies: Easy Bruising, Easy Bleeding VTE Information - Inpt Only VTE Present on Admission: No VTE Mechan Device Prophylaxis: None VTE Pharm Prophylaxis ordered?: Yes - Physical Exam General: Alert, Oriented x3, Cooperative HEENT: Atraumatic, PERRLA, EOMI, Normocephalic Neck: Supple, No JVD, Negative Carotid Bruits Lungs: Diminished - Air entry severely diminished in left lung., - - Large left pleural effusion more than two third of left lung Cardiovascular: Regular rate, Regular Rhythm, Normal S1, Normal S2, No murmurs Abdomen: Bowel Sounds Present, Soft, Non Tender, Distended Extremities: Capillary Refill Less than 3 Seconds, Edema - Bilateral lower extremity edema, right lower extremity more than left. Skin: No rashes, No breakdown Musculoskeletal: No Tenderness to Palpation of Joints or Extremities, Arthritic Changes, Muscle Wasting Lymphatic: - Neurological: Cranial nerves II-XII grossly intact, Neuro grossly intact Psych/Mental Status: Normal Affect, Appropriate Vital Signs Temp Pulse Resp BP Pulse Ox 98.5 F 89 18 161/90 H 92 08/31/18 19:43 08/31/18 19:43 08/31/18 19:43 08/31/18 19:43 08/31/18 19:43 Oxygen Delivery Method Room Air Weight: 118 lb Body Mass Index (BMI) 20.9 Laboratory Tests Past 24 Hrs Assessment/Plan This patient was seen in conjunction with Tri CALL. I have independently interviewed and examined the patient and reviewed pertinent history, examination findings, laboratory and plan of management. I have reviewed the note and agree with the documented findings with the few additional points. In brief, this is a 23-year-old female with no significant past medical history except hypothyroidism was admitted for progressive worsening of shortness of breath, bilateral lower extremity edema, right more than left and loss of weight. Ultrasound-guided thoracocentesis with pleural fluid analysis. 2D echo ordered. Venous Doppler of lower extremities ordered. I agree with the CT chest, abdomen and pelvis with IV contrast after thoracocentesis in order to rule out cause for bilateral axillary and groin lymphadenopathy and pelvic swelling, concerning for malignancy. This was discussed with the patient's daughters present in the room. I have discussed my assessment with Tri CALL and orders have been reviewed. Code Visit Inpatient E AND M: 10782 Init Hosp L3 08/31/18 1850 <Electronically signed by Tri MCPHERSON> Date Tri MCPHERSON 08/31/182141<Electronically signed by Mat Prescott MD> Cosigner Signature: Date (if applicable) Mat Prescott MD CC: PLAYERS ASSISTANT-Bassam Chester; No Primary Care Physician; Mat Prescott MD Signed THORACENTESIS W US Observed: 08/31/2018 Status: F Source: KIP 6:53 PM [facility] REPOSITORY [facility] Imaging Services [address] [place] [address] Thoracentesis W US MR#: [id number] Acct: [id number] Name: NINFA SAM Rep #: [id number] : 1945 F 73 From: Chris Alfaro MD PCP: Care Physician, No Primary Status: ADM IN Study: Thoracentesis W US Date of Exam: 09/01/18 Exam# [id number] Ordering Dr: Tri Chester PROCEDURE: ULTRASOUND GUIDED THORACENTESIS. DATE: September 01, 2018. INDICATION: Female, 73 years old. Left pleural effusion PHYSICIAN: Chris Alfaro M.D. PROCEDURE: The risks, benefits, and alternatives to the procedure were explained to the patient. The specific risks of bleeding, infection, and pneumothorax requiring chest tube insertion were discussed and accepted. Written informed consent was obtained. Ultrasonographic evaluation of the left lower pleural space was carried out. An adequate pocket was identified. The patient was placed in the sitting, upright position. The overlying skin was prepped and draped in sterile fashion. 1% lidocaine was administered subcutaneously for local anesthesia. Under ultrasound guidance, a 5 Portuguese thoracentesis needle/catheter system was advanced into the left posterior lower pleural fluid collection. Approximately 1070 mL of macy-colored fluid was drained. The catheter was removed, and a sterile dressing was applied. A specimen was collected and sent to the laboratory for analysis, as requested by the referring clinician. The patient tolerated the procedure well. A chest x-ray was ordered. US/Thoracentesis W US IMPRESSION: Ultrasound-guided left thoracentesis. Electronically Signed: Chris Alfaro MD at 14:26 EST Tel [phone], Service support , CC: [place] Chester; No Primary Care Physician Scouring Machine Operator: Signed CBC W/DIFF, AUTOMATED Collected: 08/31/2018 Status: F Source: KIP 3:15 PM [facility] REPOSITORY TYPE CODE TESTS RESULT OUT OF RANGE REFERENCE UNITS LAB L100.1000 4.4-11.0 K/mm3 Normal WBC 6.1 LAB L100.1200 4.2-5.4 M/mm3 Normal RBC 4.68 LAB L100.1300 12.0-15.0 g/dl Normal HGB 12.9 LAB L100.1400 37-47 % Normal HCT 39.7 LAB L100.1500 81-99 fL Normal MCV 84.8 LAB L100.1600 27.0-32.0 pg Normal MCH 27.6 LAB L100.1700 32-36 g/gl Normal MCHC 32.5 LAB L100.1810 11.6-14.6 % High RDW CV 15.9 LAB L100.1820 35.1-43.9 fl High RDW SD 49.0 LAB L100.1900 150-450 K/mm3 Normal PLT 277 LAB L100.2000 6.2-12.0 fl Normal MPV 9.4 LAB L100.2100 47-70 % High NEUT% 80.8 LAB L100.2200 19-41 % Low LY% 9.6 LAB L100.2300 0-10 % Normal MONO% 8.6 LAB L100.2400 0-5 % Normal EO% 0.5 LAB L100.2500 0-1 % Normal BASO% 0.3 LAB L100.2550 0.0-0.9 % Normal IM GRAN % 0.200 Result Comment: IG% - Immature Granulocytes (promyelocytes, myelocytes and metamyelocytes) > 1% indicates that a LEFT SHIFT is Present. LAB L100.2620 2.0-7.7 X10 3/uL Normal Absolute Neut 4.9 LAB L100.2720 0.83-4.51 X10 3/ul Low Absolute Lymph 0.58 LAB L100.4500 Normal SMEAR COMMENT SCANNED Result Comment: LYMPHOPENIA NOTED Performed By: #### L100.0100 #### [facility] [address] [place], [place], [address] BASIC METABOLIC Collected: 08/31/2018 Status: F Source: KIP PROFILE (BMP) 3:15 PM [facility] REPOSITORY TYPE CODE TESTS RESULT OUT OF RANGE REFERENCE UNITS LAB L501.0100 74-106 mg/dL Normal GLU 91 Result Comment: Please note revised GLUCOSE reference range effective 2017. LAB L501.1000 7-18 mg/dL Normal BUN 17 LAB L501.1100 0.55-1.02 mg/dL Normal CREAT,SERUM 0.85 Result Comment: The validity of the calculated GFR AND GFRAA in patients over 70 years has not been determined. Clinical correlation is essential. LAB L501.1110 >60 mL/min Normal EST GFR 69 Result Comment: Non- GFR Calc LAB L501.1115 >60 mL/min Normal EST GFR - AA 84 Result Comment: GFR Calc LAB L501.1255 ml/min Normal Estimated CRCL 48.76 LAB L501.1300 10-20 RATIO Normal BUN/CRE 19.9 LAB L501.2200 8.5-10 mg/dL Low .1 CA 8.4 LAB L501.5300 136-14 mmol/L Normal 5 NA 142 LAB L501.5600 3.5-5. mmol/L Normal 1 K 3.7 LAB L501.5900 98-107 mmol/L High CL 108 LAB L501.6100 21.0-3 mmol/L Normal 2.0 CO2 27.0 LAB L501.6200 5-15 Normal GAP 7 Performed By: #### L500.2500, L500.3400, L501.4010, L501.9520 #### [facility] [address] [place], [place], [address] LIVER PROFILE Collected: 08/31/2018 Status: F Source: KIP 3:15 PM [facility] REPOSIT[facility] TYPE CODE TESTS RESULT OUT OF RANGE REFERENCE UNITS LAB L501.1500 6.4-8.2 g/dL Low T PROT 6.1 LAB L501.1800 3.2-5.0 g/dL Normal ALB 3.2 LAB L501.1950 2.2-4.2 g/dL Normal GLOB 2.9 LAB L501.4100 15-37 U/L Normal AST 16 LAB L501.4305 45-117 U/L High ALK P 119 LAB L501.4405 13-56 U/L Low ALT 12 LAB L501.4600 0.20-1.00 mg/dL Normal T BILI 0.80 LAB L501.4700 0.00-0.30 mg/dL Normal D BILI 0.21 Performed By: #### L500.2500, L500.3400, L501.4010, L501.9520 #### [facility] [address] [facility] [place], [place], [id number] TROPONIN-I Collected: 08/31/2018 Status: F Source: [place] 3:15 PM [facility] REPOSITORY TYPE CODE TESTS RESULT OUT OF RANGE REFERENCE UNITS LAB L501.4010 <0.045 ng/mL Normal < 0.015 TROPONIN-I Result Comment: TROPONIN-I EXPECTED VALUES <0.045 Negative 0.045 - 0.590 Consistent with Cardiac Damage > OR = 0.600 Critical Value Not every elevated troponin is indicative of CA. These values should be used with clinical judgement in examining the patient's clinical picture for diagnosis. To establish a diagnosis of CA versus myocardial injury, there must be a demonstrated rise and/or fall in the troponin values, in addition to ischemic symptoms, EKG changes, new regional wall motion abnormality, and/or angiographical evidence. PLEASE NOTE: REFERENCE RANGES EDITED 18 Performed By: #### L500.2500, L500.3400, L501.4010, L501.9520 #### [facility] [address] [place], [place], [address] THYROID STIM HORMONE Collected: 08/31/2018 Status: F Source: [place] (TSH) 3:15 PM [facility] REPOSITORY TYPE CODE TESTS RESULT OUT OF RANGE REFERENCE UNITS LAB L501.9520 0.358-3.74 uIU/mL Normal TSH 1.70 Performed By: #### L500.2500, L500.3400, L501.4010, L501.9520 #### [facility] [address] [place], [address] BNP,B-TYPE NATRIURETIC Collected: 08/31/2018 Status: F Source: KIP PEPTIDE 3:15 PM [facility] REPOSITORY TYPE CODE TESTS RESULT OUT OF RANGE REFERENCE UNITS LAB L503.6620 0-100 pg/mL Normal B-TYPE 26.6 TONIE PEP Performed By: #### L503.6620 #### [facility] [address] [place], [address] CHEST PA AND LATERAL Observed: 08/31/2018 Status: F Source: KIP 3:05 PM [facility] REPOSITORY [facility] Imaging Services [address] [place] [address] Chest PA and Lateral MR#: [id number] Acct: [id number] Name: NINFA SAM Rep #: [id number] : 1945 F 73 From: Martín Madrid MD PCP: Care Physician, No Primary Status: REG ER Study: Chest PA and Lateral Date of Exam: 08/31/18 Exam# [id number] Ordering Dr: Jocelyn Marquez MD STUDY: X-RAY CHEST REASON FOR EXAM: Female, 73 years old. Increasing shortness of breath TECHNIQUE: PA and lateral COMPARISON: None. FINDINGS: There is a large left pleural effusion and consolidation of the left lower lobe as well as mild consolidation of the left upper lobe. There is a smaller effusion on the right with mild right basilar consolidation.. There is a small nodular opacity in the right lower lobe which appears relatively dense likely granuloma Normal size heart. Normal mediastinum and marco. Normal visualized pulmonary arteries. Normal visualized aortic arch and descending thoracic aorta. Dorsal spine demonstrates mild spondylosis.. Normal visualized ribs, clavicles, and shoulders. There is no demonstrated abnormality of the visualized soft tissue structures of the upper abdomen. RAD/Chest PA and Lateral IMPRESSION: Bilateral effusions greater on the left with bibasilar consolidation. Small dense nodule in the right lower lobe most likely granulomatous process Electronically Signed: Martín Madrid MD at 16:41 EST , Service support , CC: No Primary Care Physician; Jocelyn Marquez MD Scouring Machine Operator: Signed ALLERGIES ALLERGIES DATE TYPE / CODE NAME / CODE REACTION SEVERITY SOURCE 09/13/2018 Drug No Known Unknown [place] [facility] Allergy/4160 Allergies/F00 Hospital 27938(SNOMED [id number](RXNOR Repository CT) M) ENCOUNTERS ENCOUNTERS ADMIT/DISCHARGE ACCOUNT ADMITTING ENCOUNTER LOCATION SOURCE NUMBER CLASS 09/19/2018 [id number] [facility] [place] [place] 5 Encounter [facility] ing:TCURoom: Repository FRT86Liu: 1 09/13/2018 [id number] [facility], Ambulatory BMSBuilding:B [place] [address] [place] [place] Repository 09/13/2018 [id number] [facility], Ambulatory BMSBuilding:B [place] [address] [place] Repository 09/13/2018 [id number] [place], Ambulatory BMSBuilding:B [place] [address] [place] Repository 09/13/2018 [id number] [place], Ambulatory BMSBuilding:B [place] [address] [place] [facility] 09/13/2018 [id number] [place], Ambulatory BMSBuilding:B [place] [address] [place] Repository 09/13/2018 [id number] [place], Ambulatory BMSBuilding:B [place] [address] [place] [facility] 09/13/2018 [id number] [place], Ambulatory BMSBuilding:B [place] [address] [place] Repository 09/13/2018 [id number] [facility], Ambulatory BMSBuilding:B [place] [address] [place] [facility] 09/13/2018 [id number] [facility], Ambulatory BMSBuilding:B [place] [address] [place] Repository 09/13/2018 [id number] [facility], Ambulatory BMSBuilding:B [place] [address] [place] Repository 09/13/2018 [id number] [facility], Ambulatory BMSBuilding:B [place] [address] [place] Repository 09/13/2018 [id number] [place], Ambulatory BMSBuilding:B [place] 9 [place].CF.[facility] Repository 09/13/2018 [id number] [place], Ambulatory BMSBuilding:B [place] 9 [place]has[place] MS.Formerly [facility] Repository 09/13/2018 [id number] [place], Ambulatory BMSBuilding:B [place] 6 [place] MS.CF.[facility] Repository 09/13/2018 [id number] [place], Ambulatory BMSBuilding:B [place] 0 [place].CF.[facility] Repository 09/13/2018 [id number] [facility], Ambulatory BMSBuilding:B [place] 9 [place] MS.CF.[facility] Repository 09/13/2018 [id number] [facility], Ambulatory BMSBuilding:B [place] 6 [place] MS.Formerly [facility] Repository 09/13/2018 [id number] [place], Ambulatory BMSBuilding:B [place] 6 [place] MS.CF.[facility] Repository 09/13/2018/ [id number] [facility], Inpatient [place] 8 6 [place] [facility] ing:PCURoom: Repository [id number]: 1 09/11/2018/ [id number] Ambulatory BMSBuilding:B [place] 8 4 [place].[facility] Repository 09/11/2018 [id number] Ambulatory BMSBuilding:B [place] 7 MS.CF.[facility] Repository 09/11/2018 [id number] Ambulatory [place] 1 [facility] ing:OMD Repository 09/10/2018 [id number] Ambulatory [place] 1 [facility] ing:CT Repository 09/04/2018 [id number] Ambulatory [place] Kip 3 [facility] ing:PAVLAB Repository 09/04/2018/ [id number] Ambulatory BMSBuilding:B [place] 8 2 [place].[facility] Repository 09/04/2018/ [id number] Ambulatory BMSBuilding:B [place] [address] Repository 08/31/2018/ [id number] [facility], Inpatient [place] 8 5 Mat Encounter [facility] ing:RC1Nmrw: Repository [id number]: 1 08/31/[id number] [facility], Ambulatory BMSBuilding:B [place] 8 Mat MS.[facility]ly [facility] Repository 08/31/[id number] [facility], Ambulatory BMSBuilding:B [place] 7 Mat MS.Formerly [facility] Repository 08/31/[id number] [facility], Ambulatory BMSBuilding:B [place] 7 Mat MS.CF.[facility] Repository 08/31/[id number] [facility], Ambulatory BMSBuilding:B [place] 0 Mat MS.[facility]ly [facility] Repository 08/31/[id number] [facility], Ambulatory BMSBuilding:B [place] 3 Mat [place].CF.[facility] Repository 08/31/2018/ [id number] Ambulatory BMSBuilding:W [place] 8 4 [facility] Repository 08/31/2018/ [id number] Ambulatory BMSBuilding:B [place] 8 0 MS.CF.[facility] Repository PAYERS PAYERS ENCOUNTER GUARANTOR PAYER SUBSCRIBER SOURCE 09/19/2018 TUNDE Hawthorne Primary NINFA Shin [id number] TR Insurance:MEDICARE LINTDOB: [facility] 16PO [address]OX PART A BPolicy [id number] Number: Repository 26[address]Trs: (563) [id number] [facility]-0879 () Date:2018-09-19 09/19/2018 Secondary TUNDE LUNAB: K[place] Insurance:MEDI [id number] [facility] Number: [facility] [id number] Repository Date:3953-43-76KC [id number] RAZIA MCMILLAN 39024ZZ: 09/19/2018 Tertiary NOT GIVENUNK [place] Insurance:SELF PAY Community [facility] Number: Effective Repository Date:2018-09-19 09/13/2018 TUNDE Hawthorne Primary NINFA Shin [id number] TR Insurance:MEDICARE LINTDOB: Community [address] PART A [facility] [id number] Number: Repository 863[address]Dmw: 330 [id number] [phone] () Date:2018-09-13 09/13/2018 Secondary TUNDE Hawthorne LINTDOB: K[place] Insurance:[facility] [id number] Community SHAREPolicy Number: [facility] [id number] Repository Date:1820-56-13HR [id number] RAZIA MCMILLAN 30122IA: 09/13/2018 Tertiary NOT GIVENUNK [place] Insurance:SELF PAY [facility] Number: Effective Repository Date:2018-09-13 09/13/2018 TUNDE Hawthorne Primary NINFA Shin [id number] TR Insurance:MEDICARE LINTDOB: Community [address] PART A [facility] [id number] [place] Number: Repository [address]Xrt: 330 [id number] [phone] () Date:2018-09-13 09/13/2018 Secondary TUNDE Hawthorne LINTDOB: [place] Insurance:[facility] [id number] Community SHAREPolicy Number: [facility] [id number] Repository Date:4330-97-95RB [id number] [place] [address]AP: 09/13/2018 Tertiary NOT GIVENUNK [place] Insurance:SELF PAY [facility] Number: Effective Repository Date:2018-09-13 09/13/2018 TUNDE Hawthorne Primary NINFA Shin [id number] TR Insurance:MEDICARE LINTDOB: Community [address] PART A [facility] [id number] Number: Repository 94286Qxy: 330 [id number] [phone] () Date:2018-09-13 09/13/2018 Secondary TUNDE A LINTDOB: [place] Insurance:[facility] [id number] Community SHAREPolicy Number: Hospital [id number] Repository Date:9991-23-44TF [id number] [place] [address] 84988WY: 09/13/2018 Tertiary NOT GIVENUNK [place] Insurance:SELF PAY Community [facility] Number: Effective Repository Date:2018-09-13 09/13/2018 TUNDE Hawthorne Primary NINFA Shin [id number] TR Insurance:MEDICARE LINTDOB: Community [address] PART A [facility] [id number] Number: Repository 26[address]Mji: 330 [id number] [phone] () Date:2018-09-13 09/13/2018 Secondary TUNDE A LINTDOB: [place] Insurance:[facility] [id number] [facility] SHAREPolicy Number: Hospital [id number] Repository Date:3640-61-66OQ [id number] [place] [address] 93771LN: 09/13/2018 Tertiary NOT GIVENUNK [place] Insurance:SELF PAY Community [facility] Number: Effective Repository Date:2018-09-13 09/13/2018 TUNDE aHwthorne Primary NINFA Shin [id number] TR Insurance:MEDICARE LINTDOB: Community [address] PART A [facility] [id number] Number: Repository 047[address]Dxi: 330 [id number] [phone] (HP) Date:2018-09-13 09/13/2018 Secondary TUNDE Hawthorne LINTDOB: [place] Insurance:[facility] [id number] [facility] SHAREPolicy Number: Hospital [id number] Repository Date:0441-14-68AJ [id number] [place] [address] 64380JA: 09/13/2018 Tertiary NOT GIVENUNK [place] Insurance:SELF PAY Community [facility] Number: Effective Repository Date:2018-09-13 09/13/2018 TUNDE Hawthorne Primary NINFA Carrillo [place] [id number] TR Insurance:MEDICARE LINTDOB: Community [address] PART A olic [id number] Number: Repository 28769Hth: 330 [id number] [phone] (HP) Date:2018-09-13 09/13/2018 Secondary TUNDE Hawthorne LINTDOB: [place] Insurance:[facility] [id number] Community SHAREPolicy Number: Hospital [id number] Repository Date:2681-38-85PZ [id number] RAZIA MCMILLAN 77803UA: 09/13/2018 Tertiary NOT GIVENUNK [place] Insurance:SELF PAY Community [facility] Number: Effective Repository Date:2018-09-13 09/13/2018 TUNDE Hawthorne Primary NINFA Carrillo [place] [id number] TR Insurance:MEDICARE LINTDOB: Community [address] PART A [facility] [id number] Number: Repository 625[address]Hsv: 330 [id number] [phone] (HP) Date:2018-09-13 09/13/2018 Secondary TUNDE A LINTDOB: [place] Insurance:[facility] [id number] Community SHAREPolicy Number: Hospital [id number] Repository Date:6756-13-34YI [id number] RAZIA MCMILLAN 65594HB: 09/13/2018 Tertiary NOT GIVENUNK [place] Insurance:SELF PAY [facility] Number: Effective Repository Date:2018-09-13 09/13/2018 TUNDE A Primary NINFA Carrillo [place] [id number] TR Insurance:MEDICARE LINTDOB: Community [address] PART A [facility] [id number] Number: Repository 16806Swk: 330 [id number] [phone] (HP) Date:2018-09-13 09/13/2018 Secondary TUNDE A LINTDOB: [place] Insurance:[facility] [id number] Community SHAREPolicy Number: Hospital [id number] Repository Date:5385-00-85ID [id number] RAZIA MCMILLAN 48482IO: 09/13/2018 Tertiary NOT GIVENUNK [place] Insurance:SELF PAY Community [facility] Number: Effective Repository Date:2018-09-13 09/13/2018 TUNDE Hawthorne Primary NINFA Shin [id number] TR Insurance:MEDICARE LINTDOB: Community [address] PART A olicy [id number] Number: Repository 625[address]Ppf: 330 [id number] [phone] () Date:2018-09-13 09/13/2018 Secondary TUNDE Hawthorne LINTDOB: [place] Insurance:[facility] [id number] Community SHAREPolicy Number: Hospital [id number] Repository Date:7859-97-46GK [id number] RAZIA MCMILLAN 47151LY: 09/13/2018 Tertiary NOT GIVENUNK [place] Insurance:SELF PAY [facility] Number: Effective Repository Date:2018-09-13 09/13/2018 TUNDE Hawthorne Primary NINFA Shin [id number] TR Insurance:MEDICARE LINTDOB: Community [address] PART A [facility] [id number], [place] Number: Repository 98[address]Ydd: 330 [id number] [phone] () Date:2018-09-13 09/13/2018 Secondary TUNDE Hawthorne LINTDOB: [place] Insurance:[facility] [id number] [facility] SHAREPolicy Number: Hospital [id number] Repository Date:5094-82-62LZ [id number] [place] [address]YB: 09/13/2018 Tertiary NOT GIVENUNK [place] Insurance:SELF PAY [facility] Number: Effective Repository Date:2018-09-13 09/13/2018 TUNDE Hawthorne Primary NINFA Shin [id number] TR Insurance:MEDICARE LINTDOB: Community [address] PART A [facility] [id number] Number: Repository 094[address]Bjf: 330 [id number] [phone] () Date:2018-09-13 09/13/2018 Secondary TUNDE A LINTDOB: [place] Insurance:[facility] [id number] Community SHAREPolicy Number: Hospital [id number] Repository Date:0645-36-16EX [id number] [place], [place] [address]PX: 09/13/2018 Tertiary NOT GIVENUNK [place] Insurance:SELF PAY Community [facility] Hospital Number: Effective Repository Date:2018-09-13 09/13/2018 TUNDE Hawthorne Primary NINFA Carrillo Kip [id number] TR Insurance:MEDICARE LINTDOB: Community [address] PART A BPolicy [id number] Number: Repository 74[address]Clk: 330 [id number] [phone] () Date:2018-09-13 09/13/2018 Secondary TUNDE A LINTDOB: [place] Insurance:[facility] [id number] [facility] SHAREPolicy Number: Hospital [id number] Repository Date:0836-79-80UO [id number] [place], [place] [address]RQ: 09/13/2018 Tertiary NOT GIVENUNK [place] Insurance:SELF PAY Community [facility] Hospital Number: Effective Repository Date:2018-09-13 09/13/2018 TUNDE Hawthorne Primary NINFA Carrillo Kip [id number] TR Insurance:MEDICARE LINTDOB: Community [address] PART A olicy [id number] Number: Repository 597[address]Pbv: 330 [id number] [phone] () Date:2018-09-13 09/13/2018 Secondary TUNDE A LINTDOB: [place] Insurance:[facility] [id number] [facility] SHAREPolicy Number: Hospital [id number] Repository Date:7998-43-49UX [id number] [place], [place] [address]JT: 09/13/2018 Tertiary NOT GIVENUNK [place] Insurance:SELF PAY Community [facility] Hospital Number: Effective Repository Date:2018-09-13 09/13/2018 TUNDE Hawthorne Primary NINFA Gerardo K[place] [id number] TR Insurance:MEDICARE LINTDOB: Community [address] PART A BPolicy [id number] Number: Repository 239[address]Mof: (614) [id number] [phone] () Date:2018-09-13 09/13/2018 Secondary TUNDE Hawthorne LINTDOB: [place] Insurance:[facility] [id number] [facility] SHAREPolicy Number: Hospital [id number] Repository Date:9002-54-56JR [id number] RAZIA MCMILLAN 76798VG: 09/13/2018 Tertiary NOT GIVENUNK [place] Insurance:SELF PAY [facility] Number: Effective Repository Date:2018-09-13 09/13/2018 TUNDE A Primary NINFA Carrillo [place] [id number] TR Insurance:MEDICARE LINTDOB: Community [address] PART A [facility] [id number] Number: Repository 91051Xvi: 330 [id number] [phone] () Date:2018-09-13 09/13/2018 Secondary TUNDE A LINTDOB: [place] Insurance:[facility] [id number] Community SHAREPolicy Number: Hospital [id number] Repository Date:4304-44-37AZ [id number] RAZIA MCMILLAN 91107KM: 09/13/2018 Tertiary NOT GIVENUNK [place] Insurance:SELF PAY [facility] Number: Effective Repository Date:2018-09-13 09/13/2018 TUNDE A Primary NINFA Shin [id number] TR Insurance:MEDICARE LINTDOB: Community [address] PART A [facility] [id number] Number: Repository 560[address]Dui: 330 [id number] [phone] () Date:2018-09-13 09/13/2018 Secondary TUNDE A LINTDOB: [place] Insurance:[facility] [id number] [facility] SHAREPolicy Number: Hospital [id number] Repository Date:4062-00-03VY [id number] [place] [address]YD: 09/13/2018 Tertiary NOT GIVENUNK [place] Insurance:SELF PAY Community [facility] Number: Effective Repository Date:2018-09-13 09/13/2018 TUNDE Hawthorne Primary NINFA Shin [id number] TR Insurance:MEDICARE LINTDOB: Community [address] PART A [facility] [id number] Number: Repository 49891Cnt: 330 [id number] [phone] () Date:2018-09-13 09/13/2018 Secondary TUNDE Hawthorne LINTDOB: [place] Insurance:[facility] [id number] [facility] SHAREPolicy Number: [facility] [id number] Repository Date:8650-19-51MJ [address] [address]BJ: 09/13/2018 Tertiary NOT GIVENUNK [place] Insurance:SELF PAY [facility] Number: Effective Repository Date:2018-09-13 09/13/2018 TUNDE Hawthorne Primary NINFA Shin [id number] TR Insurance:MEDICARE LINTDOB: Community [address] PART A [facility] [id number] [place] Number: Repository [address]Fun: 330 [id number] [phone] () Date:2018-09-13 09/13/2018 Secondary TUNDE Hawthorne LINTDOB: [place] Insurance:[facility] [id number] [facility] [id number] Repository Date:4012-78-87KO [id number] [place] [address] 22155AD: 09/13/2018 Tertiary NOT GIVENUNK [place] Insurance:SELF PAY [facility] Number: Effective Repository Date:2018-09-13 09/13/2018 TUNDE Hawthorne Primary NINFA Shin [id number] TR Insurance:MEDICARE LINTDOB: Community [address] PART A [facility] [id number] Number: Repository 074[address]Vlm: 330 [id number] [phone] () Date:2018-09-13 09/13/2018 Secondary TUNDE A LINTDOB: [place] Insurance:MEDI [id number] Community SHAREPolicy Number: Hospital [id number] Repository Date:0049-07-30SP [id number] [place] [address] 89647LO: 09/13/2018 Tertiary NOT GIVENUNK [place] Insurance:SELF PAY Community [facility] Hospital Number: Effective Repository Date:2018-09-13 09/11/2018 TUNDE Hawthorne Primary NINFA Shin [id number] TR Insurance:MEDICARE LINTDOB: Community [address] PART A olic [id number] Number: Repository 917[address]Yof: (882) [id number] [phone] () Date:2018-09-11 09/11/2018 Secondary TUNDE Hawthorne LINTDOB: [place] Insurance:[facility] [id number] [facility] SHAREPolicy Number: Hospital [id number] Repository Date:5905-50-63QN [id number] [place] [address] 40436LR: 09/11/2018 Tertiary NOT GIVENUNK [place] Insurance:SELF PAY [facility] Number: Effective Repository Date:2018-09-11 09/11/2018 TUNDE Hawthorne Primary NINFA Damonoster [id number] TR Insurance:MEDICARE LINTDOB: Community [address] PART A [facility] [id number] Number: Repository 010[address]Pll: 330 [id number] [phone] () Date:2018-09-11 09/11/2018 Secondary TUNDE Hawthorne LINTDOB: [place] Insurance:[facility] [id number] [facility] SHAREPolicy Number: Hospital [id number] Repository Date:0927-21-67FQ [id number] [place] [address] 38961FF: 09/11/2018 Tertiary NOT GIVENUNK [place] Insurance:SELF PAY Community [facility] Number: Effective Repository Date:2018-09-11 09/11/2018 TUNDE Hawthorne Primary NINFA Carrillo Kip [id number] TR Insurance:MEDICARE LINTDOB: Community [address] PART A [facility] [id number] Number: Repository 211[address]Svv: (280) [id number] [phone] () Date:2018-09-11 09/11/2018 Secondary TUNDE Hawthorne LINTDOB: [place] Insurance:[facility] [id number] Community SHAREPolicy Number: Hospital [id number] Repository Date:2639-43-95QO [id number] RAZIA MCMILLAN 79302BB: 09/11/2018 Tertiary NOT GIVENUNK [place] Insurance:SELF PAY [facility] Number: Effective Repository Date:2018-09-11 09/10/2018 TUNDE A Primary NINFA Shin [id number] TR Insurance:MEDICARE LINTDOB: Community [address] PART A [facility] [id number] Number: Repository 724[address]Pjo: 330 [id number] [phone] () Date:2018-09-04 09/10/2018 Secondary TUNDE Hawthorne LINTDOB: [place] Insurance:[facility] [id number] Community SHAREPolicy Number: Hospital [id number] Repository Date:4206-03-61TE [id number] [place], [place] [address]LV: 09/10/2018 Tertiary NOT GIVENUNK [place] Insurance:SELF PAY [facility] Number: Effective Repository Date:2018-09-04 09/04/2018 TUNDE A Primary NINFA Shin [id number] TR Insurance:MEDICARE LINTDOB: Community 16BOX PART A [facility] [id number] Number: Repository [address]Mrj: 330 [id number] [phone] (HP) Date:2018-09-04 09/04/2018 Secondary TUNDE A LINTDOB: [place] Insurance:[facility] [id number] Community SHAREPolicy Number: Hospital [id number] Repository Date:0097-58-82BT [id number] RAZIA MCMILLAN 74675IG: 09/04/2018 Tertiary NOT GIVENUNK [place] Insurance:SELF PAY Community [facility] Number: Effective Repository Date:2018-09-04 09/04/2018 TUNDE A Primary NINFA Shin [id number] TR Insurance:MEDICARE LINTDOB: Community [address] [place] [address] PART A [facility] [id number] Hospital 728[address]Oja: (330) Number: Repository [phone] () [id number] Date:2018-09-02 09/04/2018 Secondary TUNDE Hawthorne LINTDOB: [place] Insurance:[facility] [id number] [facility] Hospital [id number] Repository Date:3297-95-16EN [id number] [place] [address] 63645BP: 09/04/2018 Tertiary NOT GIVENUNK [place] Insurance:SELF PAY [facility] Number: Effective Repository Date:2018-09-03 09/04/2018 TUNDE A Primary NINFA Shin [id number] TR Insurance:MEDICARE LINTDOB: [address] PART A [facility] [id number] Hospital 378[address]Wld: (330) Number: Repository [phone] () [id number] Date:2018-09-02 09/04/2018 Secondary TUNDE Hawthorne LINTDOB: [place] Insurance:[facility] [id number] [facility] Number: Hospital [id number] Repository Date:6350-40-64CB [id number] [place] [address] 63831QC: 09/04/2018 Tertiary NOT GIVENUNK [place] Insurance:SELF PAY [facility] Number: Effective Repository Date:2018-09-03 08/31/2018 TUNDE A Primary NINFA Shin [id number] TR Insurance:MEDICARE LINTDOB: [address] PART A [facility] [id number] Hospital 07470Uem: (330) Number: Repository [phone] () [id number] Date:2018-08-31 08/31/2018 Secondary TUNDE A LINTDOB: [place] Insurance:[facility] [id number] [facility] SHAREPolic Number: Hospital [id number] Repository Date:4527-39-94GW [id number] RAZIA MCMILLAN 76939WJ: 08/31/2018 Tertiary NOT GIVENUNK [place] Insurance:SELF PAY [facility] Number: Effective Repository Date:2018-08-31 08/31/2018 TUNDE A Primary NINFA Shin [id number] TR Insurance:MEDICARE LINTDOB: Community [address]OX PART A [facility] [id number] Number: Repository 328[address]Mly: (432) [id number] [phone] (HP) Date:2018-08-31 08/31/2018 Secondary TUNDE Marine JOYCELYNTDOB: [place] Insurance:[facility] [id number] Community SHAREPolic Number: Hospital [id number] Repository Date:9977-53-93NJ [id number] RAZIA MCMILLAN 36178MU: 08/31/2018 Tertiary NOT GIVENUNK [place] Insurance:SELF PAY [facility] Number: Effective Repository Date:2018-08-31 08/31/2018 TUNDE A Primary NINFA Damonoster [id number] TR Insurance:MEDICARE LINTDOB: Community [address] PART A [facility] [id number] Number: Repository 71002Beo: [phone]) [id number] [phone] () Date:2018-08-31 08/31/2018 Secondary TUNDE Hawthorne LINTDOB: [place] Insurance:[facility] [id number] Number: Hospital [id number] Repository Date:1945KI [id number] RAZIA MCMILLAN 313[address]KZ: 08/31/2018 Tertiary NOT GIVENUNK [place] Insurance:SELF PAY [facility] Number: Effective Repository Date:2018-08-31 08/31/2018 TUNDE A Primary NINFA Shin [id number] TR Insurance:MEDICARE LINTDOB: [address] PART A [facility] [facility] [id number] [place] [address]26[address]Cdd: (330) Number: Repository [phone] [id number] Date:2018-08-31 08/31/2018 Secondary TUNDE HIRSCHSharriDOB: [place] Insurance:[facility] [id number] Community SHAREPolicy Number: Hospital [id number] Repository Date:[id number] [id number] RAZIA MCMILLAN 32742KM: 08/31/2018 Tertiary NOT GIVENUNK [place] Insurance:SELF PAY Community INSURANCEPolicy Hospital Number: Effective Repository Date:2018-08-31 08/31/2018 TUNDE A Primary NINFA J Kip [id number] TR Insurance:MEDICARE LINTDOB: [address] PART A [facility] [id number] Number: Repository [id number]: [phone] [id number] [phone] () Date:2018-08-31 08/31/2018 Secondary TUNDE [place] FLACODOB: Kip Insurance:[facility] [id number] Community SHAREPolicy Number: Hospital [id number] Repository Date:[id number] [id number] [place] [address]SK: 08/31/2018 Tertiary NOT GIVENUNK [place] Insurance:SELF PAY [facility] Number: Effective Repository Date:2018-08-31 08/31/2018 TUNDE A Primary NINFA [place] [id number] TR Insurance:MEDICARE LINTDOB: [address] PART A [facility] [id number] Hospital [id number]: (330) Number: Repository [phone] () [id number] Date:2018-08-31 08/31/2018 Secondary TUNDE A FLACODOB: [place] Insurance:[facility] [id number] Community SHAREPolicy Number: Hospital [id number] Repository Date:2347-21-90JD [id number] [place] [address]XG: 08/31/2018 Tertiary NOT GIVENUNK [place] Insurance:SELF PAY [facility] Number: Effective Repository Date:2018-08-31 08/31/2018 TUNDE [place] Primary NINFA Shin [id number] TR Insurance:MEDICARE LINTDOB: Community [address] PART A [facility] [id number] Number: Repository [phone]: [phone] [id number] [phone] (HP) Date:2018-08-31 08/31/2018 Secondary TUNDE [place] FLACODOB: [place] Insurance:[facility] [id number] Community SHAREPolicy Number: Hospital [id number] Repository Date:[id number] [place], [place] [address]FY: 08/31/2018 Tertiary NOT GIVENUNK [place] Insurance:SELF PAY [facility] Number: Effective Repository Date:2018-08-31 08/31/2018 TUNDE [place] Primary NINFA Shin [id number] TR Insurance:MEDICARE LINTDOB: Community [address] PART A [facility] [id number] Number: Repository [phone]: [phone] [id number] [phone] (HP) Date:2018-08-31 08/31/2018 Secondary TUNDE Marine CHERYLB: [place] Insurance:[facility] [id number] [facility] Hospital [id number] Repository Date:[id number] [place], [place] [address]TY: 08/31/2018 Tertiary NOT GIVENUNK [place] Insurance:SELF PAY [facility] Number: Effective Repository Date:2018-08-31
== END 2018-09-02 15:25 | disposition home or self-care (01) | DRG 187 ==
LOC: ED 16:11 → MS3 17:34
PROVIDERS: Family Medicine; Nurse Practitioner Family; Admitting Provider Internal Medicine; Emergency Provider Emergency Medicine; Visit Provider Student in an Organized Health Care Education/Training Program
DX: J90 Pleural effusion, not elsewhere classified (principal); E44.0 Moderate protein-calorie malnutrition; R09.02 Hypoxemia; I16.0 Hypertensive urgency; R19.00 Intra-abdominal and pelvic swelling, mass and lump, unspecified site; R22.2 Localized swelling, mass and lump, trunk; Z68.20 Body mass index [BMI] 20.0-20.9, adult; C80.1 Malignant (primary) neoplasm, unspecified
CPT/HCPCS: 32555; 36415; 71046; 80048; 80076; 82945; 83615; 83880; 83986; 84156; 84157; 84443; 84484; 85025; 85027; 85379; 85610; 85730; 87070; 87075; 87205; 88108; 88305; 88313; 89050; 93005; 93306; 93970; 97802; 99285; J7030

== ENCOUNTER → 2018-09-04 15:23 | Outpatient (CLI) | payer MEDICARE, OTHER, SELFPAY ==
[2018-09-04 14:33] VITALS: BMI 20.9
[2018-09-04 15:28] LABS: Lyme Ab Screen Interpretation REF LAB
[2018-09-07 14:34] LABS: Lyme Scn Total Ab w/Rflx <0.91 ISR (0.00-0.90)
[2018-09-10 12:07] LABS: Lyme IgG P18 Ab Absent (.); Lyme IgG P23 Ab Absent (.); Lyme IgG P28 Ab Absent (.); Lyme IgG P30 Ab Absent (.); Lyme IgG P39 Ab Absent (.); Lyme IgG P41 Ab Absent (.); Lyme IgG P45 Ab Absent (.); Lyme IgG P58 Ab Absent (.); Lyme IgG P66 Ab Absent (.); Lyme IgG P93 Ab Absent (.); Lyme IgM P23 Ab Absent (.); Lyme IgM P39 Ab Absent (.); Lyme IgM P41 Ab Absent (.)
[2018-09-11 11:58] LABS: Lyme AB/Total Immuno < 0.91 ISR (0.00-0.90); Lyme IgG WB Interpretation Negative (.); Lyme IgM WB Interpretation Negative (.)
--- OUTSIDE RECORDS SUMMARY | 2018-10-30 14:29 | XMS RPT_ITS ---
:1945 Author Organization [place] Support Name Relationship Address Phone JULIA ROB Unavailable [address] + [place] [address] TUNDE SAM Unavailable [address] + [address] [place] [address] R Unavailable Unavailable Unavailable FUNK, ROB Unavailable [address] + [place] [address] TUNDE SAM Unavailable 94132 [address] + [address] [place] [address] R Unavailable Unavailable Unavailable FUNK, ROB Unavailable [address] + [place] [address] TUNDE SAM Unavailable 15410 [address] + [address] [place] [address] R Unavailable Unavailable Unavailable FUNK, ROB Unavailable [address] + [place] [address] TUNDE SAM Unavailable 40868 [address] 16 + [address] [place] [address] R Unavailable Unavailable Unavailable FUNK, ROB Unavailable [address] + [place] [address] TUNDE SAM Unavailable 47106 [address] 16 + [address] [place] [address] R Unavailable Unavailable Unavailable FUNK, ROB Unavailable [address] + [place] [address] TUNDE SAM Unavailable 83734 [address] + [address] [place] [address] R Unavailable Unavailable Unavailable FUNK, ROB Unavailable [address] + [place] [address] TUNDE SAM Unavailable 90150 [address] 16 + [address] [place] [address] R Unavailable Unavailable Unavailable FUNK, ROB Unavailable [address] + [place] [address] TUNDE SAM Unavailable 10874 [address] 16 + [address] [facility] [place] [address] R Unavailable Unavailable Unavailable FUNK, ROB Unavailable [address] + [place] [address] LINTUNDE Harrell Unavailable [address]121 [address] 16 + [address] [facility] [place] [address] R Unavailable Unavailable Unavailable FUNK, ROB Unavailable [address] + [place] [address] TUNDE SAM Unavailable 68857 [address] 16 + [address] [facility] [place] [address] R Unavailable Unavailable Unavailable FUNK, ROB Unavailable [address] + [place] [address] TUNDE SAM Unavailable 64857 [address] 16 + [address] [facility] [place] [address] R Unavailable Unavailable Unavailable FUNK, ROB Unavailable [address] + [place] [address] TUNDE SAM Unavailable 04280 [address] 16 + [address] [facility] [place] [address] R Unavailable Unavailable Unavailable FUNK, ROB Unavailable [address] + [place] [address] TUNDE SAM Unavailable 27602 [address] 16 + [address] [place] [address] R Unavailable Unavailable Unavailable FUNK, ROB Unavailable [address] + [place] [address] TUNDE SAM Unavailable 05054 [address] + [address] [facility] [place] [address] R Unavailable Unavailable Unavailable FUNK, ROB Unavailable [address] + [place] [address] TUNDE SAM Unavailable 99833 TR 16 + [address] [place] [address] R Unavailable Unavailable Unavailable FUNK, ROB Unavailable [address] + [place] [address] TUNDE SAM Unavailable 11060 [address] 16 + [address] [place] [address] R Unavailable Unavailable Unavailable FUNK, ROB Unavailable [address] + [place] [address] LINSharri, TUNDE Unavailable 33886 [address] + [address] [facility] [place] [address] R Unavailable Unavailable Unavailable FUNK, ROB Unavailable [address] + [place] [address] LINSharri, TUNDE Unavailable 08509 [address] 16 + [address] [place] [address] R Unavailable Unavailable Unavailable FUNK, ROB Unavailable [address] + [place] [address] LINT, TUNDE Unavailable 42145 [address] 16 + [address] [facility] [place] [address] R Unavailable Unavailable Unavailable FUNK, ROB Unavailable [address] + [place] [address] LINSharri, TUNDE Unavailable 68624 [address] 16 + [address] [facility] [place] [address] R Unavailable Unavailable Unavailable FUNK, ROB Unavailable [address] + [place] [address] LINTUNDE Harrell Unavailable 82318 [address] 16 + [address] [facility] [place] [address] R Unavailable Unavailable Unavailable FUNK, ROB Unavailable [address] + [place] [address] LINTUNDE Harrell Unavailable 78998 [address] 16 + [address] [place] [address] R Unavailable Unavailable Unavailable FUNK, ROB Unavailable [address] + [place] [address] TUNDE SAM Unavailable 53243 [address] 16 + [address] [place] [address] R Unavailable Unavailable Unavailable FUNK, ROB Unavailable [address] + [place] [address] TUNDE SAM Unavailable [address] + [place] [address] R Unavailable Unavailable Unavailable FUNK, ROB Unavailable [address] + [place] [address] LINT, TUNDE Unavailable 165[address] + [place] [address] R Unavailable Unavailable Unavailable FUNK, ROB Unavailable [address] + [place] [address] LINT, TUNDE Unavailable [address] + [place] [address] R Unavailable Unavailable Unavailable FUNK, ROB Unavailable [address] + [place] [address] LINT, TUNDE Unavailable 74130 [address] + [place] [address] R Unavailable Unavailable Unavailable FUNK, ROB Unavailable [address] + [place] [address] LINT, TUNDE Unavailable [address] + [place] [address] R Unavailable Unavailable Unavailable FUNK, ROB Unavailable [address] + [place] [address] LINT, TUNDE Unavailable 37809 [address] 16 + [address] [place] [address] R Unavailable Unavailable Unavailable FUNK, ROB Unavailable [address] + [place] [address] LINT, TUNDE Unavailable 97931 TR 16 + [address] [place] [address] R Unavailable Unavailable Unavailable FUNK, ROB Unavailable [address] + [place] [address] LINT, TUNDE Unavailable [address]95[address] + [place] [address] R Unavailable Unavailable Unavailable FUNK, ROB Unavailable [address] + [place] [address] LINT, TUNDE Unavailable 83215 [address] 16 + [address] [place] [address] R Unavailable Unavailable Unavailable FUNK, ROB Unavailable [address] + [place] [address] LINT, TUNDE Unavailable [address] + [place] [address] R Unavailable Unavailable Unavailable FUNK, ROB Unavailable [address] + [place] [address] TUNDE SAM Unavailable 95757 [address] 16 + [address] [place] [address] R Unavailable Unavailable Unavailable FUNK, ROB Unavailable [address] + [place] [address] TUNDE SAM Unavailable 88899 [address] 16 + [address] [place] [address] R Unavailable Unavailable Unavailable Care Team Providers [...] Primay Care Physicia, No Primary Care Unavailable [facility], [facility] Admitting Unavailable Emerson, Junaid Consulting Unavailable Koram, Faye Carolyn Attending Unavailable [facility], [facility] Admitting Unavailable Primay [facility] Physicia, No Primary Care Unavailable Emerson, Junaid Consulting Unavailable [facility], Mat Attending Unavailable [facility], Mat Consulting Unavailable [facility], Mat Admitting Unavailable [facility]ay [facility] Physicia, No Primary Care Unavailable Emerson, Junaid Consulting Unavailable Tereletsky, Donn Attending Unavailable Tereletsky, Donn Consulting Unavailable [facility], [facility] Admitting Unavailable Emerson, Junaid Attending Unavailable [facility] Physicia, No Primary Care Unavailable Emerson, Junaid Consulting Unavailable Tereletsky, Donn Consulting Unavailable [facility], [facility] Admitting Unavailable Primay Care Physicia, No Primary Care Unavailable Emerson, Junaid Consulting Unavailable Koram, Faye Carolyn Attending Unavailable Koram, Faye Carolyn Consulting Unavailable [facility], Mat Admitting Unavailable Emerson, Junaid Attending Unavailable [...] Referring Unavailable Oleghe, Efewongbe Primary Care Unavailable uGicho Greenberg D.O. Consulting Unavailable Isckarus, Mansour Consulting Unavailable Ashelfah, Ghasem Consulting Unavailable Joe Miranda Attending Unavailable [place] [facility] Referring Unavailable PROBLEMS PROBLEMS DATE TYPE CONDITION / CODE ATTENDING STATUS SOURCE 09/22/2018 Unknown R53.81 - Other Eric, Jacob Chi Active [facility] malaise / Community R53.81(ICD-10) Hospital Repository 09/16/2018 Unknown R19.00 - Isckarus, Active [facility] Intra-abdominal and [facility] Community pelvic swelling, Hospital mass and lump, Repository unspecified site / R19.00(ICD-10) 09/16/2018 Unknown J90 - Pleural Isckarus, Active [facility] effusion, not Mansour Community elsewhere classified Hospital / J90(ICD-10) Repository 09/16/2018 Unknown Z98.890 - Other Isckarus, Active [facility] specified [facility] postprocedural Hospital states / Repository Z98.890(ICD-10) 09/16/2018 Unknown R59.1 - Generalized Isckarus, Active [facility] enlarged lymph nodes [facility] / R59.1(ICD-10) Hospital Repository 09/16/2018 Unknown R89.7 - Abnormal Isckarus, Active [facility] histological [facility] findings in Hospital specimens from other Repository organs, systems and tissues / R89.7(ICD-10) 09/04/2018 Unknown R59.0 - Localized Ross, Active [facility] enlarged lymph nodes [facility] / R59.0(ICD-10) Hospital Repository 09/04/2018 Unknown R19.09 - Other Oleghe, Active [facility] intra-abdominal and Efewongbe [facility] pelvic swelling, Hospital mass and lump / Repository R19.09(ICD-10) 09/14/2018 Unknown M79.89 - Other Joe Miranda Active [facility] specified soft [facility] tissue disorders / Hospital M79.89(ICD-10) Repository PROCEDURES PROCEDURES No Procedure Records FoundRESULTS RESULTS 12 LEAD ELECTROCARDIOGRAM Observed: 09/21/2018 Status: F Source: [place] 7:49 AM [facility] Cardiovascular Services [address] [place] [address] 12 Lead EKG 09/17/182008 MR#: [id number] Acct: [id number] Name: NINFA SAM Rep #: [id number] : 1945 73 From: Dirk Soto MD Attending Dr: Kamryn Prince Status: DIS IN Ordering Dr: Kamryn Prince MD Date: 09/17/18 Location: [facility] Sex: F C Admitted: 09/13/18 Test [...] found Confirmed by JORGE ALEX, DIRK ([id number]), food editor RACHELLE VALERO ([id number]) on 09/21/2018 7:49:38 AM Referred By: Kamryn Prince Confirmed By:DIRK SOTO MD 09/21/18 0749 Date Dirk Soto MD CC: Mikey Diamond MD; Kamryn Prince Signed 12 LEAD ELECTROCARDIOGRAM Observed: 09/21/2018 Status: F Source: [place] 7:47 AM [facility] Cardiovascular Services [address] [place] [address] 12 Lead EKG 09/18/18 0433 MR#: [id number] Acct: [id number] Name: NINFA SAM Rep #: [id number] : 1945 73 From: Dirk Soto MD Attending Dr: Kamryn Prince Status: DIS IN Ordering Dr: Bi Garcia MD Date: 09/18/18 Location: [facility] Sex: F C Admitted: 09/13/18 Test [...] UNCONFIRMED Confirmed by JORGE ALEX, DIRK ([id number]), food editor RACHELLE VALERO (56) on 09/21/2018 7:47:40 AM Referred By: Kamryn Prince Confirmed By:DIRK SOTO MD 09/21/18 0747 Date Dirk Soto MD CC: Bi Garcia MD; Mikey Diamond MD; Kamryn Prince Signed CBC W/DIFF, AUTOMATED Collected: 09/20/2018 Status: F Source: [place] 7:58 AM [facility] TYPE CODE TESTS RESULT OUT OF [...] Lymph 0.53 Performed By: #### L100.0100 #### [facility] [address] [place], [place], [id number] BASIC METABOLIC Collected: 09/20/2018 Status: F Source: [place] PROFILE (BMP) 7:58 AM [facility] TYPE CODE TESTS RESULT OUT OF [...] GAP 7 Performed By: #### L500.2500 #### [facility] [address] [facility] [place], [address] HISTORY AND PHYSICAL Observed: 09/19/2018 Status: F Source: [place] EXAM 5:59 PM [facility] Medical Records Department [address] [place] [address] History and Physical 09/19/18 1702 MR#: [id number] Acct: [id number] Name: NINFA SAM Rep #: [id number] : 1945 73 From: Jacob Reyes MD PCP: Mikey Diamond MD Status: ADM IN Location: [place] [address] ADDENDUM by Jacob Reyes MD on 09/19/18 at 1759 Code Visit Sacral pressure ulcer - Stage 1, present on admission. 09/19/18 1753 <Electronically signed by Jacob Reyes MD> Date [...] with below past medical history presented to [facility] Emergency Department 09/13/2018 with increasing shortness of [...] lump, 1990s, benign History of thoracentesis Z98.890 [facility] 09/01/18 Surgical History: - - Lumpectomy, Thoracentesis, port placement, right inguinal excisional lymph node biopsy. 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 Berger upon discharge from TCU. 09/19/18 2813 <Electronically signed by Jacob Reyes MD> Date Jacob Reyes MD Cosigner Signature: Date (if applicable) CC: Mikey Diamond MD; Jacob Reyes MD Signed DISCHARGE SUMMARY Observed: 09/19/2018 Status: F Source: [place] 12:53 PM [facility] Medical Records Department [address] [place] [address] Discharge Summary 09/19/18 1241 MR#: [id number] Acct: [id number] Name: NINFA SAM Rep #: [id number] : 1945 73 From: Kamryn Prince MD PCP: Mikey Diamond MD Status: ADM IN Y Location: [place] [address] Discharge Date and Diagnosis - Problem List [...] by Selene Caro MD to Christian Lopez [phone], on 09/13/2018 14:31:10 (ET). Electronically Signed: Selene Caro MD at 14:20 EST Tel , Service support , ADDENDUM: 09/13/18 1438 Thoracentesis Ultrasound 09/14/18 08:00 IMPRESSION: Ultrasound-guided left thoracentesis. Electronically Signed: Chris Alfaro MD at 15:36 EST Tel [phone], Service support , Chest X-Ray 09/14/18 15:08 IMPRESSION: Status post left thoracentesis. There is no evidence of pneumothorax. Small bilateral pleural effusions with underlying atelectasis. Electronically Signed: Chris Alfaro MD at 8:33 EST Tel [phone], Service support , Chest X-Ray 09/18/18 15:40 IMPRESSION: The tip of the right jorge catheter is in the right atrium. Interval increase in size of the bilateral pleural effusions with bibasilar atelectasis and/or infiltrates worse on the left side. Electronically Signed: Chris Alfaro MD at 15:51 EST Tel [phone], Service support , Dr. Norman, pulmonology/critical care. [...] 2 weeks. This note was generated with [employer] dictation software. It may contain incorrect words, [...] 3-4 days. Please call his office. Disposition: [facility] facility Minutes spent on discharge:: 36 Patient Condition:: Stable Medical Necessity - Tobacco Use Smoking Status: Never smoker Meaningful Use Info Meaningful Use Diagnoses (Choose all that apply): None applicable Code Visit Inpatient E AND M: 89511 Disch Hosp 09/19/18 1253 <Electronically signed by Kamryn Prince MD> Date Kamryn Prince MD Cosigner Signature (if applicable): Date CC: Bi Garcia MD; Junaid Norman MD; Mikey Diamond MD; Kamryn Prince; Juani Berger MD Signed TRANSFER TO [facility] Observed: 09/19/2018 Status: F Source: [facility] 8:53 AM [facility] Medical Records Department [address] [place] [address] Transfer to [facility] MR#: [id number] Acct: [id number] Name: NINFA SMA Gerardo Rep #: [id number] : 1945 73 From: Kamryn Prince MD PCP: Mikey Diamond MD Status: ADM IN REYNA SAMROBBIN Carrillo (Patient) (Health Ins. Claim No.) (Day of Discharge to Facility) Certification of patient admission REQUIRED AT TIME OF ADMISSION. I CERTIFY THAT POST-HOSPITAL ECF SERVICES ARE REQUIRED TO BE GIVEN ON AN IN-PATIENT BASIS BECAUSE OF THE ABOVE NAMED PATIENT'S NEED FOR JAIL CARE ON A CONTINUING BASIS FOR THE [...] 09/19/2018 Status: F Source: [place] 3:50 AM [facility] TYPE CODE TESTS RESULT OUT OF [...] NOTED Performed By: #### L100.0100 #### [facility] [address] [place], [address] PARTIAL THROMBOPLAST Collected: 09/19/2018 Status: F Source: [place] TIME 3:50 AM [facility] TYPE CODE TESTS RESULT OUT OF REFERENCE UNITS RANGE LAB L300.4310 24.1-36.2 Seconds High PTT 43.9 Performed By: #### L300.4310 #### [facility] [address] [place], [address] BASIC METABOLIC Collected: 09/19/2018 Status: F Source: [place] PROFILE (BMP) 3:50 AM [facility] TYPE CODE TESTS RESULT OUT OF [...] GAP 7 Performed By: #### L500.2500 #### [facility] [address] [place], [address] PARTIAL THROMBOPLAST Collected: 09/18/2018 Status: F Source: [place] TIME 8:05 PM [facility] TYPE CODE TESTS RESULT OUT OF RANGE REFERENCE UNITS LAB L300.4310 24.1-36.2 Seconds Normal PTT 29.4 Performed By: #### L300.4310 #### [facility] [address] [place], [place], [address] OPERATIVE REPORT Observed: 09/18/2018 Status: F Source: [place] 4:00 PM [facility] Medical Records Department [address] [place] [address] Operative Report 09/18/18 1554 MR#: [id number] Acct: [id number] Name: NINFA SAM Rep #: [id number] : 1945 73 From: Bi Garcia MD PCP: Mikey Diamond MD Status: ADM IN Y Location: [place] [address]1 ADDENDUM by Bi Garcia MD on 09/18/18 [...] Next the fascia was reapproximated with 2 qiymnl-ee-jgwrt 3-0 Vicryl sutures. Next the skin was closed with interrupted 3-0 Vicryl sutures as well as Dermabond. Patient tolerated procedure well, was taken to PACU in stable condition. Chest x-ray will be obtained. Patient will resume heparin in 6 hours. Grafts/Implants Used: 8 [place] Power[employer] - Admit VTE Documentation VTE Present on Admission: Yes VTE Mechan Device Prophylaxis: SCD's VTE Pharm Prophylaxis ordered?: Yes 09/18/18 1559 <Electronically signed by Bi Garcia MD> Date Bi Garcia MD CC: Bi Garcia MD; Guicho Greenberg D.O.; Mikey Diamond MD; Kamryn Prince; Juani Berger MD Signed CXR FOR LINE PLACEMENT Observed: 09/18/2018 Status: F Source: [place] 3:35 PM [facility] Imaging Services [address] [place] [address] CXR for Line Placement MR#: [id number] Acct: [id number] Name: NINFA SAM Rep #: [id number] : 1945 F 73 From: Chris Alfaro MD PCP: Mikey Diamond MD Status: ADM IN Study: CXR for Line Placement Date of Exam: 09/18/18 Exam# [id number] Ordering Dr: Bi Garcia MD STUDY: X-RAY [...] Chris Alfaro MD at 15:51 EST Tel [phone], Service support , CC: Bi Garcia MD; Mikey Diamond MD Meeting Facilitator: Signed HEPATITIS B/C PROFILE Collected: 09/18/2018 Status: F Source: [place] VIII 11:00 AM [facility] TYPE CODE TESTS RESULT OUT OF RANGE REFERENCE UNITS LAB L3100.0400 Negative Normal HB Negative SURF AG LAB L3100.0420 Negative Normal HEP Negative Be AG 6619 LAB L3100.0440 Negative Normal HB Negative CORE [id number] LAB L3100.0460 Negative Normal HEP B Negative [...] to indicate HCV infection. Performed at: - [facility] [id number] On Line Csr: Earnest Milligan PhD, Phone: [phone] Performed By: #### L3000.0800 #### [facility] (refer to report for specific site) refer to report for address and phone number PARTIAL THROMBOPLAST Collected: 09/18/2018 Status: F Source: [place] TIME 7:10 AM [facility] TYPE CODE TESTS RESULT OUT OF REFERENCE UNITS RANGE LAB L300.4310 24.1-36.2 Seconds High PTT 50.4 Performed By: #### L300.4310 #### [facility] [address] [place], [address] THYROID STIM HORMONE Collected: 09/18/2018 Status: F Source: [place] (TSH) 7:10 AM [facility] TYPE CODE TESTS RESULT OUT OF RANGE REFERENCE UNITS LAB L501.9520 0.358-3.74 uIU/mL Normal TSH 2.70 Performed By: #### L501.9520 #### [facility] [address] [place], [address] URIC ACID Collected: 09/18/2018 Status: F Source: [place] 7:10 AM [facility] TYPE CODE TESTS RESULT OUT OF RANGE REFERENCE UNITS LAB L501.1400 2.6-6.0 mg/dL Normal URIC 3.5 Result Comment: The drugs N-Acetylcysteine and Metamizole may falsely depress this assay. Performed By: #### L501.1400 #### [facility] [address] [place], [address] PARTIAL THROMBOPLAST Collected: 09/18/2018 Status: F Source: [place] TIME 1:18 AM [facility] TYPE CODE TESTS RESULT OUT OF REFERENCE UNITS RANGE LAB L300.4310 24.1-36.2 Seconds High PTT 59.3 Performed By: #### L300.4310 #### [facility] [address] [place], [address] IMMUNOHISTOCHEMISTRY Observed: 09/18/2018 Status: F Source: [place] 12:00 AM [facility] Patient: NINFA SAM : 1945 (73/F) Acct Num: [id number] Phys: Kamryn Prince Unit Num: [id number] Loc: U [id number] Specimen: [id number] Received: 09/22/18 - 0759 Spec Type: IMMUNO TISSUES 1 TISSUES: A. Skin of axilla, NOS B. Inguinal lymph node, NOS SPECIMEN INFORMATION: Tissue Source: A - Left axillary skin lesion, B - Right inguinal lymph node Clinical Info: Generalized lymphadenopathy Specimen Number: [id number] A2 AND B1 CPT code: 06098 x2, 56225 x38 METHODOLOGY: Deparaffinized sections of prefer/formalin-fixed tissue or PAP/DQ stained slides are incubated with monoclonal/polyclonal antibodies/oligonucleotide probes. Localization is made via biotin free immunoperoxidase method. Appropriate controls are performed and reacted as expected. Results on target cell population are indicated in the following table: RESULTS: ANTIBODY / CLONE RESULT Block A2 AE1-3 (AE1/AE3/PCK26) negative CD3 (PS1) negative CD5 (SP10) negative CD10 (56C6) positive CD15 (MMA) negative CD20 (L26) positive CD23 (1B12) negative CD30 (Nomi-H2) negative CD43 (L60) negative CD45 (RP2/18) positive CD79a (11E3) positive CD138 (B-A38) negative BCL-2 (bcl-2/100/D5) positive BCL-6 (GN005N/A8) positive Cyclin D1/BCL-1 (SP4) negative Hallett (polyclonal) negative Lambda (polyclonal) negative MUM1 (MRQ-43) positive C-MYC (Y69) negative Ki-67 (30-9) positive, low Block B1 AE1-3 (AE1/AE3/PCK26) negative CD3 (PS1) negative CD5 (SP10) negative CD10 (56C6) positive CD15 (MMA) negative CD20 (L26) positive CD23 (1B12) negative CD30 (Nomi-H2) negative CD43 (L60) negative CD45 (RP2/18) positive CD79a (11E3) positive CD138 (B-A38) negative BCL-2 (bcl-2/100/D5) positive BCL-6 (WK844U/A8) positive Cyclin D1/BCL-1 (SP4) negative Hallett (polyclonal) negative Lambda (polyclonal) negative MUM1 (MRQ-43) positive C-MYC (Y69) negative Ki-67 (30-9) negative These tests were developed and their performance characteristics determined by [facility]. They may not have been cleared or approved by the U.S. Food and Drug Administration. The FDA has determined that such clearance or approval is not necessary. INTERPRETATION: A. 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 B. 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 AM:rg 09/22/18 PHYSICIAN AND INSTITUTION [facility] [address] [place], [place] [address] Signed Aldair Winchesterih, DO 09/22/18 <signature on file> Performed By: #### PIMM #### [facility] [address] [place] [address] [place], [address] PARTIAL THROMBOPLAST Collected: 09/17/2018 Status: F Source: [place] TIME 6:35 PM [facility] TYPE CODE TESTS RESULT OUT OF REFERENCE UNITS RANGE LAB L300.4310 24.1-36.2 Seconds High PTT 47.8 Performed By: #### L300.4310 #### [facility] [address] [place], [place] [address]e. [facility] [address] PROTHROMBIN TIME W/INR Collected: 09/17/2018 Status: F Source: [place] 12:08 PM [facility] TYPE CODE TESTS RESULT OUT OF RANGE REFERENCE UNITS LAB L300.4150 11.7-14.9 SECONDS High PROTIME 15.8 LAB L300.4200 Normal INR 1.3 Performed By: #### L300.3900, L300.4310 #### [facility] [address] [place] [address] [place], [address] PARTIAL THROMBOPLAST Collected: 09/17/2018 Status: F Source: KIP TIME 12:08 PM [facility] TYPE CODE TESTS RESULT OUT OF RANGE REFERENCE UNITS LAB L300.4310 24.1-36.2 Seconds Normal PTT 26.5 Performed By: #### L300.3900, L300.4310 #### [facility] [address] [place] [address] [place], [address] BASIC METABOLIC Collected: 09/17/2018 Status: F Source: [place] PROFILE (BMP) 5:15 AM [facility] TYPE CODE TESTS RESULT OUT OF [...] GAP 8 Performed By: #### L500.2500 #### [facility] [address] [place], [address] CBC W/DIFF, AUTOMATED Collected: 09/17/2018 Status: F Source: [place] 5:15 AM [facility] TYPE CODE TESTS RESULT OUT OF [...] Lymph 0.48 Performed By: #### L100.0100 #### [facility] [address] [facility] [place], [place], [address] PARTIAL THROMBOPLAST Collected: 09/16/2018 Status: F Source: KIP TIME 5:00 AM [facility] TYPE CODE TESTS RESULT OUT OF REFERENCE UNITS RANGE LAB L300.4310 24.1-36.2 Seconds High PTT 62.7 Performed By: #### L300.4310 #### [facility] [address] [facility] [place], [address] PARTIAL THROMBOPLAST Collected: 09/16/2018 Status: F Source: KIP TIME 12:15 AM [facility] Order Comment: Comments: Time sensitive-hep gtt TYPE CODE TESTS RESULT OUT OF REFERENCE UNITS RANGE LAB L300.4310 24.1-36.2 Seconds High PTT 62.3 Performed By: #### L300.4310 #### [facility] [address] [place], [address] PARTIAL THROMBOPLAST Collected: 09/15/2018 Status: F Source: KIP TIME 6:03 PM [facility] TYPE CODE TESTS RESULT OUT OF REFERENCE UNITS RANGE LAB L300.4310 24.1-36.2 Seconds High PTT 71.0 Performed By: #### L300.4310 #### [facility] [address] [place], [address] PARTIAL THROMBOPLAST Collected: 09/15/2018 Status: F Source: KIP TIME 10:30 AM [facility] TYPE CODE TESTS RESULT OUT OF RANGE REFERENCE UNITS LAB L300.4310 24.1-36.2 Seconds Normal PTT 33.5 Performed By: #### L300.4310 #### [facility] [address] [place], [address] 12 LEAD ELECTROCARDIOGRAM Observed: 09/15/2018 Status: F Source: 8:52 AM [facility] Cardiovascular Services [address] [place] [address] 12 Lead EKG 09/13/18 1226 MR#: [id number] Acct: [id number] Name: NINFA SAM Rep #: [id number] : 1945 73 From: Dirk Soto MD [...] ECG Confirmed by DIRK SOTO MD ([id number]), food editor RACHELLE VALERO ([id number]) on 09/15/2018 8:53:41 AM Referred By: Kamryn Prince Confirmed By:DIRK SOTO MD 09/15/18 0853 Date Dirk Soto MD CC: Mikey Diamond MD; Kamryn Prince; Christian Lopez MD Signed CONSULTATION Observed: 09/15/2018 Status: F Source: [place] 5:45 AM [facility] Medical Records Department [address] [place] [address] Consultation 09/14/18 0957 MR#: [id number] Acct: [id number] Name: NINFA SAM Rep #: [id number] : 1945 73 From: Junaid Norman MD [...] me from previous hospitalization, who presented to [facility] on 09/13/2018 secondary to worsening shortness [...] care unit Patient had been recently seen [facility] with a pleural effusion that responded [...] lump, 1990s, benign History of thoracentesis Z98.890 [facility] 09/01/18 Surgical History: no surgical history Psychiatric History: No pertinent psych hx SCRUMMASTER History: No pertinent SCRUMMASTER history Lives: Spouse/ Significant Other Smoking Status: [...] by Selene Caro MD to Christian Lopez [phone], VASU, on 09/13/2018 14:31:10 (ET). Electronically Signed: Selene [...] AM to 10 AM) Code Visit 9xxxx: 89649 Critical care first hour 09/15/18 0545 <Electronically signed by Junaid Norman MD> Date Junaid Norman MD Cosigner Signature (if applicable): Date CC: Guicho Greenberg D.O.; Mikey Diamond MD; Kamryn Prince; Juani Berger MD Signed CBC W/DIFF, AUTOMATED Collected: 09/15/2018 Status: F Source: KIP 4:10 AM [facility] TYPE CODE TESTS RESULT OUT OF [...] Lymph 0.64 Performed By: #### L100.0100 #### [facility] [address] [place], [place], [address] BASIC METABOLIC Collected: 09/15/2018 Status: F Source: [place] PROFILE (BMP) 4:10 AM [facility] TYPE CODE TESTS RESULT OUT OF [...] GAP 8 Performed By: #### L500.2500 #### [facility] [address] [place], [address] PARTIAL THROMBOPLAST Collected: 09/15/2018 Status: F Source: KIP TIME 4:10 AM [facility] TYPE CODE TESTS RESULT OUT OF REFERENCE UNITS RANGE LAB L300.4310 24.1-36.2 Seconds High alert PTT 111.4 Result Comment: CRITICAL VALUE VERIFIED. CALLED TO BRANDY khalil 09/15/18 Alfredo Gutierrez. RESULTS READ BACK BY SAME . Performed By: #### L300.4310 #### [facility] [address] [place], [address] PARTIAL THROMBOPLAST Collected: 09/14/2018 Status: F Source: KIP TIME 10:15 PM [facility] TYPE CODE TESTS RESULT OUT OF REFERENCE UNITS RANGE LAB L300.4310 24.1-36.2 Seconds High PTT 51.7 Performed By: #### L300.4310 #### [facility] [address] [place], [address] CONSULTATION Observed: 09/14/2018 Status: F Source: KIP 4:44 PM [facility] Medical Records Department [address] [place] [address] Consultation 09/14/18 1630 MR#: [id number] Acct: [id number] Name: NINFA SAM Rep #: [id number] : 1945 73 From: Juani Berger MD [...] Document 09/13/18 16:48 ALLEN (Rec: 09/13/18 16:53 [id number] BMI Required to complete PMH What is [...] Months No Nurse Filling Out [facility] [place] Questions: Date: 09/13/18 Time: 16:52 Psycho/Social Medical [...] (Last Updated 09/13/18 @ 14:06 by Kamryn Prinec MD) IBS (irritable bowel syndrome) (Chronic) History [...] verbally conveyed [facility] [phone] , on 09/13/2018 14:31:10 (ET). Electronically Signed: Selene [...] Diamond MD Referring Provider: Himanshu Duran 09/14/18 1644 <Electronically signed by Juani Berger MD> Date Juani Berger MD Cosigner Signature (if applicable): Date CC: Guicho Greenberg D.O.; Mikey Diamond MD; Kamryn Prince; Juani Berger MD Signed PROTHROMBIN TIME W/INR Collected: 09/14/2018 Status: F Source: KIP 4:00 PM [facility] TYPE CODE TESTS RESULT OUT OF RANGE REFERENCE UNITS LAB L300.4150 11.7-14.9 SECONDS Normal PROTIME 14.8 LAB L300.4200 Normal INR 1.2 Performed By: #### L300.3900, L300.4310 #### [facility] [address] [facility] [address] [place], [place], [address] PARTIAL THROMBOPLAST Collected: 09/14/2018 Status: F Source: KIP TIME 4:00 PM [facility] TYPE CODE TESTS RESULT OUT OF RANGE REFERENCE UNITS LAB L300.4310 24.1-36.2 Seconds Normal PTT 30.9 Performed By: #### L300.3900, L300.4310 #### [facility] [address] [place], [address] CHEST INSP/EXP 2 VIEW Observed: 09/14/2018 Status: F Source: [place] 3:08 PM [facility] Imaging Services [address] [place] [address] Chest Insp/Exp 2 View MR#: [id number] Acct: [id number] Name: NINFA SAM Rep #: [id number] : 1945 F 73 From: Chris Alfaro MD PCP: Mikey Diamond MD Status: ADM IN Study: Chest Insp/Exp 2 View Date of Exam: 09/14/18 Exam# [id number] Ordering Dr: Chris Alfaro MD STUDY: X-RAY [...] Chris Alfaro MD at 8:33 EST Tel [phone], Service support , CC: Mikey Diamond MD; Chris Alfaro MD Meeting Facilitator: Signed CYTOLOGY, BODY FLUID / Collected: 09/14/2018 Status: F Source: [place] CSF 3:00 PM [facility] Order Comment: Comments: Please include flow cytometry - Pleural fluid TYPE CODE TESTS RESULT OUT OF RANGE REFERENCE UNITS LAB L350.1000 SEE Normal PATHOLOGY CYTOLOGY,BF REPORT /CSF Result Comment: Specimen submitted to Anatomical Pathology Department for testing. Performed By: #### L350.1000 #### [facility] [address] [facility] [place], [address] VENOUS DUPLEX LOWER Observed: 09/14/2018 Status: F Source: KIP EXTREMITY 12:55 PM [facility] Cardiovascular Services [address] [place] [address] Venous Duplex US - Ye Extrem 09/14/18 0824 MR#: [id number] Acct: [id number] Name: NINFA SAM Rep #: [id number] : 1945 73 From: Joe Miranda MD [...] Prince Date Dictated: 09/14/18 0824 Date Transcribed: 09/14/181254 Meeting Facilitator: Signed INTERNAL MEDICINE Observed: 09/14/2018 Status: F Source: KIP OFFICE VISIT 8:15 AM [facility] Internal Medicine [address] [place] [address] [place] [address] OFFICE VISIT Date of Service: 09/04/18 MR#: [id number] Acct: [id number] Name: NINFA SAM Rep #: [id number] : 1945 Provider: Mikey Diamond MD Age/Sex: 73/F Location: [facility] Status: Signed Intake Vital Signs09/04/18 Body Mass [...] general surgery. This note was generated with [employer] dictation software. It may contain incorrect words, [...] Collected: 09/14/2018 Status: F Source: KIP PROFILE ([facility]05 [facility] TYPE CODE TESTS RESULT OUT OF [...] GAP 8 Performed By: #### L500.2500 #### [facility] [address] [place], [place] [address]all [facility]. [place], [place], [address] CBC W/DIFF, AUTOMATED Collected: 09/14/2018 Status: F Source: [place] 4:05 AM [facility] TYPE CODE TESTS RESULT OUT OF [...] Lymph 0.70 Performed By: #### L100.0100 #### [facility] [address] [place], [address] PROTHROMBIN TIME W/INR Collected: 09/14/2018 Status: F Source: KIP 4:05 AM [facility] TYPE CODE TESTS RESULT OUT OF RANGE REFERENCE UNITS LAB L300.4150 11.7-14.9 SECONDS High PROTIME 15.5 LAB L300.4200 Normal INR 1.2 Performed By: #### L300.3900 #### [facility] [address] [place], [address] PARTIAL THROMBOPLAST Collected: 09/14/2018 Status: F Source: KIP TIME 2:20 AM [facility] TYPE CODE TESTS RESULT OUT OF REFERENCE UNITS RANGE LAB L300.4310 24.1-36.2 Seconds High PTT 61.2 Performed By: #### L300.4310 #### [facility] [address] [facility] [place], [address] THORACENTESIS W US Observed: 09/14/2018 Status: F Source: KIP 12:01 AM [facility] Imaging Services [address] [place] [address] Thoracentesis W US MR#: [id number] Acct: [id number] Name: NINFA SAM Rep #: [id number] : 1945 F 73 From: Chris Alfaro MD PCP: Mikey Diamond MD Status: ADM IN Study: Thoracentesis W US Date of Exam: 09/14/18 Exam# [id number] Ordering Dr: Faye Dunbar MD PROCEDURE: ULTRASOUND [...] local anesthesia. Under ultrasound guidance, a 6 Trin[place] thoracentesis needle/catheter system was advanced into the [...] Chris Alfaro MD at 15:36 EST Tel [phone], Service support , CC: Mikey Diamond MD; Faye Dunbar MD Meeting Facilitator: Signed FLUID/WASHING Observed: 09/14/2018 Status: F Source: [place] 12:00 AM [facility] Patient: NINFA SAM : 1945 (73/F) Acct Num: [id number] Phys: Kamryn Prince Unit Num: [id number] Loc: [facility] [id number] Specimen: [id number] Received: 09/15/18 - 1310 Spec Type: Fluid TISSUES 1 TISSUES: THORACIC FLUID CYTOLOGY GROSS Received is 60 ml of cloudy yellow fluid labeled with the patient's name and and designated per the requisition as thoracentesis. Submitted for cytology preparation including cell block. / 09/15/18 TC:5 CPT: 32289, 75368 CYTOLOGY STUDY Slides are reviewed. DIAGNOSIS CYTOLOGY Thoracentesis fluid for cytology (cytospins): Negative for malignant cells. AM:rg 09/16/18 HEADER OPERATION: Ultrasound-guided left thoracentesis PRE-OP DIAGNOSIS: Acute pulmonary emboli TISSUE SUBMITTED: Thoracentesis fluid for cytology Signed Aldair Garcia 09/16/18 <signature on file> Performed By: #### PFLU #### [facility] [address] [place], [place] [address] [place], [address] TROPONIN-I Collected: 09/13/2018 Status: F Source: [place] 10:10 PM [facility] Order Comment: 'TROP' Serial specimen #1, #2 or #3: 3 'TROP' Serial specimen #1, #2, #3, or #4: 3 TYPE CODE TESTS RESULT OUT OF RANGE REFERENCE UNITS LAB L501.4010 <0.045 ng/mL High 0.284 TROPONIN-I Result Comment: TROPONIN-I EXPECTED VALUES <0.045 Negative 0.045 - 0.590 Consistent with Cardiac Damage > OR = 0.600 Critical Value Not every elevated troponin is indicative of TX. These values should be used with clinical judgement in examining the patient's clinical picture for diagnosis. To establish a diagnosis of TX versus myocardial injury, there must be a demonstrated rise and/or fall in the troponin values, in addition to ischemic symptoms, EKG changes, new regional wall motion abnormality, and/or angiographical evidence. PLEASE NOTE: REFERENCE RANGES EDITED 18 Performed By: #### L501.4010 #### [facility] [address] [place], [address] TROPONIN-I Collected: 09/13/2018 Status: F Source: [place] 7:45 PM [facility] Order Comment: 'TROP' Serial specimen #1, #2 or #3: 2 'TROP' Serial specimen #1, #2, #3, or #4: 2 TYPE CODE TESTS RESULT OUT OF RANGE REFERENCE UNITS LAB L501.4010 <0.045 ng/mL High 0.263 TROPONIN-I Result Comment: TROPONIN-I EXPECTED VALUES <0.045 Negative 0.045 - 0.590 Consistent with Cardiac Damage > OR = 0.600 Critical Value Not every elevated troponin is indicative of TX. These values should be used with clinical judgement in examining the patient's clinical picture for diagnosis. To establish a diagnosis of TX versus myocardial injury, there must be a demonstrated rise and/or fall in the troponin values, in addition to ischemic symptoms, EKG changes, new regional wall motion abnormality, and/or angiographical evidence. PLEASE NOTE: REFERENCE RANGES EDITED 18 Performed By: #### L501.4010 #### [facility] [address] [place], [place], [address] PARTIAL THROMBOPLAST Collected: 09/13/2018 Status: F Source: [place] TIME 7:45 PM [facility] TYPE CODE TESTS RESULT OUT OF REFERENCE UNITS RANGE LAB L300.4310 24.1-36.2 Seconds High PTT 89.3 Performed By: #### L300.4310 #### [facility] [address] [place], [address] TROPONIN-I Collected: 09/13/2018 Status: F Source: [place] 4:20 PM [facility] Order Comment: 'TROP' Serial specimen #1, #2 or #3: 1 TYPE CODE TESTS RESULT OUT OF RANGE REFERENCE UNITS LAB L501.4010 <0.045 ng/mL High 0.291 TROPONIN-I Result Comment: TROPONIN-I EXPECTED VALUES <0.045 Negative 0.045 - 0.590 Consistent with Cardiac Damage > OR = 0.600 Critical Value Not every elevated troponin is indicative of TX. These values should be used with clinical judgement in examining the patient's clinical picture for diagnosis. To establish a diagnosis of TX versus myocardial injury, there must be a demonstrated rise and/or fall in the troponin values, in addition to ischemic symptoms, EKG changes, new regional wall motion abnormality, and/or angiographical evidence. PLEASE NOTE: REFERENCE RANGES EDITED 18 Performed By: #### L501.4010 #### [facility] [address] [facility] [place], [address] HISTORY AND PHYSICAL Observed: 09/13/2018 Status: F Source: [place] EXAM 2:35 PM [facility] Medical Records Department [address] [place] [address] History and Physical 09/13/18 1407 MR#: [id number] Acct: [id number] Name: NINFA SAM Rep #: [id number] : 1945 73 From: Kamryn Prince MD [...] was negative for malignant cells. This past Tuesday, September 11, 2018, she underwent right inguinal [...] by Agnes Denis) History of thoracentesis Z98.890 [facility] 09/01/18 History of lumpectomy Z98.890 breast lump, 1990s, benign Surgical History: no surgical history Psychiatric History: No pertinent psych hx SCRUMMASTER History: No pertinent SCRUMMASTER history Lives: Spouse/ Significant Other Smoking Status: [...] DVT prophylaxis: This note was generated with [employer] software. It may contain incorrect words, spelling, and punctuation that were not noted in checking the note before signing. Code Visit Inpatient E AND M: 58905 Init Hosp L3 09/13/18 1435 <Electronically signed by Kamryn Prince MD> Date Kamryn Prince MD Cosigner Signature: Date (if applicable) CC: Mikey Diamond MD; Kamryn Prince Signed EMERGENCY DEPARTMENT Observed: 09/13/2018 Status: F Source: [place] SUMMARY 1:52 PM [facility] Medical Records Department [address] [place] [address] Emergency Department Summary 09/13/18 1347 MR#: [id number] Acct: [id number] Name: NINFA SAM Rep #: [id number] : 1945 73 From: Christian Lopez MD [...] rate of 123 with decreased anterior force. UT interval is normal. QRS duration is slightly prolonged. QT interval is normal. [place] is normal. There is no acute ischemic [...] not been available. Review of CTA by me reveals significant bilateral pulmonary embolus. There is [...] of hypothyroidism This note was generated with [employer] dictation software. It may contain incorrect words, [...] problems, contact your Primary Care Provider. Call [facility] ([phone]) or report to the closest Emergency Room. Call 911 if necessary. 09/13/18 1352 <Electronically signed by Christian Lopez MD> Date Christian Lopez MD Cosigner Signature (If Indicated): Date CC: Mikey Diamond MD VENOUS BLOOD GAS Collected: 09/13/2018 Status: F Source: KIP 12:51 PM [facility] TYPE CODE TESTS RESULT OUT OF [...] CT ISTAT Performed By: #### L9000.0810 #### [facility] Point of Care [address] [place] [address] CTA CHEST W/WO Observed: 09/13/2018 Status: F Source: KIP CONTRAST 12:47 PM [facility] Imaging Services [address] [place] [address] CTA Chest W/WO Contrast MR#: [id number] Acct: [id number] Name: NINFA SAM Rep #: [id number] : 1945 F 73 From: Selene Caro MD PCP: Mikey Diamond MD Status: ADM IN Study: CTA Chest W/WO Contrast Date of Exam: 09/13/18 Exam# [id number] Ordering Dr: Christian Lopez MD ADDENDUM by Selene Caro M.D. on 09/13/18 at 1432 ADDENDUM Additionally there are sizable partially visualized axillary lymphadenopathy. Electronically Signed: Selene Caro MD at 14:32 EST Tel , Service support , N.B. : The above information has been verbally conveyed by Selene Caro MD to Christian Lopez [phone], VASU, on 09/13/2018 14:31:10 (ET). 09/13/18 143 Date cc: Mikey Diamond MD; Christian Lopez [...] by Selene Caro MD to Christian Lopez [phone], on 09/13/2018 14:31:10 (ET). Electronically Signed: Selene Caro MD at 14:20 EST Tel , Service support , CC: Mikey Diamond MD; Christian Lopez MD Meeting Facilitator: Signed BASIC METABOLIC Collected: 09/13/2018 Status: F Source: KIP PROFILE (BMP) 12:16 PM [facility] TYPE CODE TESTS RESULT OUT OF [...] GAP 10 Performed By: #### L500.2500 #### [facility] [address] [place], [address] CBC-COMPLETE BLOOD CNT Collected: 09/13/2018 Status: F Source: KIP NO DIFF 12:16 PM [facility] TYPE CODE TESTS RESULT OUT OF [...] MPV 9.8 Performed By: #### L100.0500 #### [facility] [address] [place], [address] PROTHROMBIN TIME W/INR Collected: 09/13/2018 Status: F Source: [place] 12:16 PM [facility] TYPE CODE TESTS RESULT OUT OF RANGE REFERENCE UNITS LAB L300.4150 11.7-14.9 SECONDS Normal PROTIME 13.8 LAB L300.4200 Normal INR 1.1 Performed By: #### L300.3900, L300.4310 #### [facility] [address] [place], [address] PARTIAL THROMBOPLAST Collected: 09/13/2018 Status: F Source: [place] TIME 12:16 PM [facility] TYPE CODE TESTS RESULT OUT OF RANGE REFERENCE UNITS LAB L300.4310 24.1-36.2 Seconds Normal PTT 29.8 Performed By: #### L300.3900, L300.4310 #### [facility] [address] [place], [address] CHEST 1 VIEW Observed: 09/13/2018 Status: F Source: [place] (PORTABLE) 12:07 PM [facility] Imaging Services [address] [place] [address] Chest 1 View (Portable) MR#: [id number] Acct: [id number] Name: NINFA SAM Rep #: [id number] : 1945 F 73 From: Selene Caro MD PCP: Mikey Diamond MD Status: REG ER Study: Chest 1 View (Portable) Date of Exam: 09/13/18 Exam# [id number] Ordering Dr: Christian Lopez MD STUDY: X-RAY [...] CC: Mikey Diamond MD; Christian Lopez MD Meeting Facilitator: Signed SURGERY VISIT REPORT Observed: 09/11/2018 Status: F Source: [place] 2:54 PM [facility] [address] [place] [address]. [address] [place] [address] OFFICE VISIT Date of Service: 09/11/18 MR#: [id number] Acct: [id number] Name: NINFA SAM Gerardo Rep #: [id number] : 1945 Provider: Bi Garcia MD Age/Sex: 73/F Location: [facility] Status: Signed Intake Vital Signs09/11/18 Body Mass Index (BMI) 21.1 09/11/18 Height 5 ft 3 in Intake Visit Reasons: Lymphadenopathy CT 09/10 Chief Complaint: f/u hospital, [facility] care DME Vendor: Bryson Is patient in pain?: No Allergies No [...] tolerated the procedure well. Biopsy Lymphnode Biopsy: 59508 Lymphnode w Needle Procedure Time Out Time [...] have been resolved. Bi Garcia MD Pager: [facility] [address] [place] [address], [address] [place] [address] Office: Orders Orders: Coding Level of Care Code No Charge Diagnoses Generalized lymphadenopathy R59.1 Additional Codes Biopsy - Lymphnode Biopsy: 70407 Lymphnode w Needle (43618) 09/11/18 5818 <Electronically signed by Bi Garcia MD> Date Bi Garcia MD Cosigner Signature: Date (if applicable) CC: Mikey Diamond MD LYMPH NODE BIOPSY Observed: 09/11/2018 Status: F Source: [place] 2:00 PM [facility] Patient: NINFA SAM : 1945 (73/F) Acct Num: [id number] Phys: Juani Berger MD Unit Num: [id number] Loc: OMD Specimen: [id number] Received: 09/11/18 8720 Spec Type: LYMPH NODE TISSUES 1 TISSUES: LYMPH NODE BIOPSY COMMENT Immunohistochemistry ([id number]) supports the above diagnosis. Excisional biopsy is [...] measure 1 x 1 x <0.1 cm. [employer] portions are submitted for flow cytometric analysis. The remainder of the tissue is submitted in its entirety in one cassette. / AM:yolanda 09/11/18 TC:5 CPT: 55666 HEADER OPERATION: Right groin needle core biopsy [...] on file> Performed By: #### PLYMN #### [facility] [address] [facility] [place], [address] MISCELLANEOUS LAB Collected: 09/11/2018 Status: F Source: [place] PROCEDURE 2:00 PM [facility] Order Comment: Comments: [id number] Right groin lymphadenopathy Test(s) Ordered: Flow [id number] TYPE CODE TESTS RESULT OUT OF RANGE REFERENCE UNITS LAB L801.1541 Normal [facility] FLOW SEE PATH TEST Performed By: #### L801.1541 #### [facility] [address] [place], [address] ONCOLOGY HISTORY AND Observed: 09/11/2018 Status: F Source: [place] PHYSICAL 1:16 PM [facility] Medical Records Department [address] [place] [address] History and Physical 09/11/18 1151 MR#: [id number] Acct: [id number] Name: NINFA SAM Gerardo Rep #: [id number] : 1945 73 From: Juani Berger MD [...] which may represent metastatic lesion. Power of Filler Operator: No Living Will: No Health History: Past [...] drinking: Has the patient needed an eye sort manager in the mornings: Comments: Review of [...] Berger MD> Date Juani Berger MD Cosigner Signature: Date (if applicable) CC: Mikey Diamond MD; Juani Berger MD Signed IMMUNOHISTOCHEMISTRY Observed: 09/11/2018 Status: F Source: [place] 12:00 AM [facility] Patient: NINFA SAM : 1945 (73/F) Acct Num: [id number] Phys: Juani Berger MD Unit Num: [id number] Loc: OMD Specimen: [id number] Received: 09/14/18 - 1345 Spec Type: IMMUNO TISSUES 1 TISSUES: Inguinal lymph node, NOS SPECIMEN INFORMATION: Tissue Source: Lymph node right groin, needle core biopsy Clinical Info: Lymphadenopathy Specimen Number: [id number] CPT code: 21484, 13237 x4 METHODOLOGY: Deparaffinized sections of prefer/formalin-fixed tissue [...] developed and their performance characteristics determined by [facility]. They may not have been cleared or approved by the U.S. Food and Drug Administration. The FDA has determined that such clearance or approval is not necessary. INTERPRETATION: Lymph node right groin, needle core biopsy: Consistent with fragments of fatty lymph node tissue, polytypic in nature. SJ:yolanda 09/15/18 PHYSICIAN AND INSTITUTION [place] [address] Signed Froilan Moran 09/17/18 <signature on file> Performed By: #### PIMM #### [facility] [address] [place] [address]. [place], [address] ABDOMEN/PELVIS WITH Observed: 09/10/2018 Status: F Source: [place] CONTRAST 2:50 PM [facility] Imaging Services [address] [place] [address] Abdomen/Pelvis WITH Contrast MR#: [id number] Acct: [id number] Name: NINFA SAM Rep #: [id number] : 1945 F 73 From: Luke Tong MD PCP: Mikey Diamond MD Status: REG CLI Study: Abdomen/Pelvis WITH Contrast Date of Exam: 09/10/18 Exam# [id number] Ordering Dr: Mikey Diamond MD STUDY: CT [...] Service support , CC: Mikey Diamond MD Meeting Facilitator: Signed PULMONARY VISIT REPORT Observed: 09/04/2018 Status: F Source: [place] 7:34 PM [facility] [address] [place] [address] OFFICE VISIT Date of Service: 09/04/18 MR#: [id number] Acct: [id number] Name: NINFA SAM Rep #: [id number] : 1945 Provider: Carina Ross Age/Sex: 73/F Location: [facility] Status: Signed Assessment AND Plan 1. Axillary [...] consulted she would like to stay at [facility] and be treated by the [place] [facility]. Orders Orders: 2. Shortness of breath R06.02 [...] Orders: Plan Detail Follow Up 1 Month ([facility]) [facility] Hospital FU: Chief Complaint: None. [facility] Comments Details: This is a 73 year old very pleasant F, currently under the care of Dr. Diamond, here to follow up after a recent hospitalization at [facility], from August 31 - September 02, [...] Weight: 119 lb Intake Visit Reasons: Hospital FU [facility] Vendor: BRYSON Accompanied by: Daughter Allergies No Known Allergies Allergy (Verified 09/04/18 14:18) Medications Acetaminophen [Tylenol] 162.5 mg PO PRN PRN 08/31/18 [History Confirmed 09/04/18] Albuterol Inhaler [Ventolin Hfa] 1 - 2 puff INHALATION Q4H PRN PRN #1 inhaler 09/02/18 [Rx Confirmed 09/04/18] PFSH Medical History IBS (irritable bowel syndrome) [...] of breath R06.02 Pleural effusion, left J90 09/04/18 1934 <Electronically signed by Carina HERNANDEZC> Date Carina HERNANDEZC Cosigner Signature: Date (if applicable) CC: Mikey Diamond MD LYME SCREEN W/REFLEX Collected: 09/04/2018 Status: F Source: [place] WB 3:28 PM [facility] TYPE CODE TESTS RESULT OUT OF RANGE REFERENCE UNITS LAB L7000.5400 0.00-0.90 ISR Normal LYME SCN <0.91 AB Result Comment: Negative <0.91 Equivocal 0.91 - 1.09 Positive >1.09 Performed at: [address] [id number] On Line Csr: Earnest Milligan PhD, Phone: [phone] LAB L7000.5500 Normal LYME SCN REF INTERP LAB Performed By: #### L7000.5300 #### [facility] (refer to report for specific site) refer to report for address and phone number LYME AB/TOTAL IMMUNO Collected: 09/04/2018 Status: F Source: [place] 3:28 PM [facility] TYPE CODE TESTS RESULT OUT OF RANGE REFERENCE UNITS LAB L3300.4700 0.00-0.90 ISR Normal LYME AB < 0.91 [address]676 Result Comment: Negative <0.91 Equivocal 0.91 - 1.09 Positive >1.09 Performed at: [facility] [address] [id number] On Line Csr: Omar Canales MD, Phone: [phone] Performed at: [facility] [address] [id number] On Line Csr: Earnest Milligan PhD, Phone: [phone] Performed By: #### L3300.4700, L7000.5800 #### [facility] (refer to report for specific site) refer to report for address and phone number LYME ANTIBODIES,W BLOT Collected: 09/04/2018 Status: F Source: [place] 3:28 PM [facility] TYPE CODE TESTS RESULT OUT OF [...] are those recommended by CDC/ASTPHLD. p23=Osp C, m14=kioydveqb Note: Sera from individuals with the following may cross react in the Lyme Western Blot assays: other spirochetal diseases (periodontal disease, leptospirosis, relapsing fever, yaws, and pinta); connective autoimmune (Rheumatoid Arthritis and Systemic Lupus Erythematosus and also individuals with Antinuclear Antibody); other infections (Bryan Spotted Fever; Noman-Bush Virus, and Cytomegalovirus). Performed By: #### L3300.4700, L7000.5800 #### [facility] (refer to report for specific site) refer to report for address and phone number 12 LEAD ELECTROCARDIOGRAM Observed: 09/04/2018 Status: F Source: [place] 9:28 AM [facility] Cardiovascular Services [address] [place] [address] 12 Lead EKG 08/31/18 1512 MR#: [id number] Acct: [id number] Name: NINFA SAM Rep #: [id number] : 1945 73 From: Je Kan MD Attending Dr: Faye Dunbar MD Status: DIS IN Ordering Dr: Jocelyn Marquez MD Date: 08/31/18 Location: AL3 Sex: F C Admitted: 08/31/18 Test Reason [...] Abnormal ECG Confirmed by LORETA ALEX, JE ([id number]), food editor KOKO DERAS ([id number]) on 09/02/2018 4:26:49 PM Referred By: JOSEF Confirmed By:JE KAN MD 09/02/18 1626 Date Je Kan MD CC: No Primary Care Physician; Jocelyn Marquez MD; Faye Dunbar MD Signed DISCHARGE SUMMARY Observed: 09/02/2018 Status: F Source: [place] 4:19 PM [facility] Medical Records Department [address] [place] [address] [place] [address] Discharge Summary 09/02/18 1030 MR#: [id number] Acct: [id number] Name: NINFA SAM Rep #: [id number] : 1945 73 From: Tri Chester SENIOR CREDIT OFFICER-C PCP: Care Physician, No Primary Status: DIS IN Y Location: [facility] PT058-5 <Tri Chester - Last Filed: 09/02/18 11:45> [...] Chris Alfaro MD at 15:00 EST Tel [phone], Service support , Thoracentesis Ultrasound 09/01/18 18:45 IMPRESSION: Ultrasound-guided left thoracentesis. Electronically Signed: Chris Alfaro MD at 14:26 EST Tel [phone], Service support , Dr. Norman- Pulmonary Operations: [...] above. This patient was seen by [place] Kline under the supervision of Dr. Dunbar. - [...] described above. Agree with rest of Tri HERNANDEZC's note. - Physical Exam Vital Signs Temp [...] Hrs Code Visit Inpatient E AND M: 40937 Disch Hosp 09/02/18 1146 <Electronically signed by Tri HERNANDEZC> Date Tri HERNANDEZC 09/02/18 1619<Electronically signed by Faye Dunbar MD> Cosigner Signature (if applicable): Date Faye Dunbar MD CC: SENIOR CREDIT OFFICER-C Tri Chester; No Primary Care Physician; Faye Dunbar MD Signed DISCHARGE INSTRUCTION Observed: 09/02/2018 Status: F Source: [place] 10:30 AM [facility] Medical Records Department [address] [place] [address] Instructions for Home/Discharge Instructions 09/02/18 1021 MR#: [id number] Acct: [id number] Name: NINFA SAM Rep #: [id number] : 1945 73 From: Tri Chester SENIOR CREDIT OFFICER-C PCP: Care Physician, No Primary Status: ADM [...] 09/02/18 09/02/18 1030 <Electronically signed by Tri MCPHERSON> Date Tri MCPHERSON CC: No Primary Care Physician; Junaid Norman MD BASIC METABOLIC Collected: 09/02/2018 Status: F Source: [place] PROFILE (BMP) 5:48 AM [facility] TYPE CODE TESTS RESULT OUT OF [...] GAP 7 Performed By: #### L500.2500 #### [facility] [address] [facility] [place], [address] CONSULTATION Observed: 09/02/2018 Status: F Source: [place] 5:47 AM [facility] Medical Records Department [address] [place] [address] Consultation 09/01/18 1119 MR#: [id number] Acct: [id number] Name: NINFA SAM Rep #: [id number] : 1945 73 From: Junaid Norman MD PCP: Care Physician, No Primary Status: ADM IN Y Location: MS3 RH154-3 Problem List (1) Weight loss, non-intentional Status: Chronic (2) Pleural effusion, left Status: Acute Reason for Consult Date of Consultation: 09/01/18 Reason for Consultation: Pleural effusion History of Present Illness: The patient is a 73 year old F, with no reported past medical history, who presented to [facility] on 08/31/2018 secondary to shortness of [...] history, PFT or being seen by a 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 Patient is not used inhalers in the [...] history Psychiatric History: No pertinent psych hx SCRUMMASTER History: No pertinent SCRUMMASTER history Lives: Spouse/ Significant Other Smoking Status: [...] lobe most likely granulomatous process Electronically Signed: aMrtín Madrid MD at 16:41 EST , Service [...] would likely be adequate. Code Visit Inpatient Syd GOMES M: 24362 Init Hosp L2 09/02/18 0547 <Electronically signed by Junaid Norman MD> Date Junaid Norman MD Cosigner Signature (if applicable): Date CC: No Primary Care Physician; Junaid Norman MD Signed ECHOCARDIOGRAM COMPLETE Observed: 09/01/2018 Status: F Source: [place] 2:47 PM [facility] Cardiovascular Services [address] [place] [address] Echo Complete 09/01/18 0823 MR#: [id number] Acct: [id number] Name: NINFA SAM Rep #: [id number] : 1945 73 From: Je Kan MD Attending Dr: Donn Gutierres DO Status: ADM IN Ordering Dr: Mat Prescott MD Date: 08/31/18 Location: AL3 Sex: F C Admitted: 08/31/18 Reason For [...] Ordering Physician: Mat Prescott Performed By: Ariane Goodrich, MIRIAN, RVT 09/01/18 1447 Date Je Kan MD CC: No Primary Care Physician; Donn Gutierres DO; Mat Prescott MD Date Dictated: 09/01/18822 Date Transcribed: 09/01/181446 Meeting Facilitator: Signed CHEST INSP/EXP 2 VIEW Observed: 09/01/2018 Status: F Source: [place] 2:02 PM [facility] Imaging Services [address] [place] [address] Chest Insp/Exp 2 View MR#: [id number] Acct: [id number] Name: NINFA SAM Rep #: [id number] : 1945 F 73 From: Chris Alfaro MD PCP: Care Physician, No Primary Status: ADM IN Study: Chest Insp/Exp 2 View Date of Exam: 09/01/18 Exam# [id number] Ordering Dr: Chris Alfaro MD STUDY: X-RAY [...] Chris Alfaro MD at 15:00 EST Tel [phone], Service support , CC: No Primary Care Physician; Chris Alfaro MD Meeting Facilitator: Signed BODY FLUID CELL Collected: 09/01/2018 Status: C Source: [place] COUNT+DIFF 1:30 PM [facility] Order Comment: The reference range and [...] Normal SPEC Performed By: #### L200.0200 #### [facility] [address] [place], [address] GLUCOSE, BODY FLUID Collected: 09/01/2018 Status: F Source: [place] 1:30 PM [facility] TYPE CODE TESTS RESULT OUT OF RANGE REFERENCE UNITS LAB L503.0100 40-70 mg/dL High GLU,BF 125 Performed By: #### L503.0100, L503.0300, L504.0250 #### [facility] [address] [place], [address] PROTEIN, BODY FLUID Collected: 09/01/2018 Status: F Source: [place] 1:30 PM [facility] TYPE CODE TESTS RESULT OUT OF RANGE REFERENCE UNITS LAB L503.0300 Not Establ. g/dL Normal 3.6 PROTEIN,BF Performed By: #### L503.0100, L503.0300, L504.0250 #### [facility] [address] [place], [address] LDH,BODY FLUID Collected: 09/01/2018 Status: F Source: [place] 1:30 PM [facility] TYPE CODE TESTS RESULT OUT OF RANGE REFERENCE UNITS LAB L504.0250 Not Establ. Units/l Normal LDH,BF 185 Performed By: #### L503.0100, L503.0300, L504.0250 #### [facility] [address] [facility] [place], [address] Observed: 09/01/2018 Status: F Source: [place]KP CULTURE, BODY FLUID 1:30 PM [facility] Gram Stain Centrifuged Specimen? Culture performed on centrifuged specimen Gram Stain 2+ Red Cell Stroma Rare Red Blood Cells No organisms seen Body Fluid Cult No growth aerobically. Cult, Anaerobic No growth in 5 days. Performed By: #### M100.1300 #### [facility] [address] [place], [address] CYTOLOGY, BODY FLUID / Collected: 09/01/2018 Status: F Source: [place] CSF 1:30 PM [facility] TYPE CODE TESTS RESULT OUT OF RANGE REFERENCE UNITS LAB L350.1000 SEE Normal PATHOLOGY CYTOLOGY,BF REPORT /CSF Result Comment: Specimen submitted to Anatomical Pathology Department for testing. Performed By: #### L350.1000 #### [facility] [address] [place] [address]. [place], [address] PH, BODY FLUID Collected: 09/01/2018 Status: F Source: [place] [address]92[address] 1:30 PM [facility] TYPE CODE TESTS RESULT OUT OF RANGE REFERENCE UNITS LAB L3800.0400 Not Estab. Normal PHBF 8.0 36669 Result Comment: This test was developed and its performance characteristics determined by [facility]. It has not been cleared or approved by the Food and Drug Administration. Performed at: [address] [id number] On Line Csr: Omar Canales MD, Phone: [phone] Performed By: #### L3800.0400 #### [facility] (refer to report for specific site) refer to report for address and phone number VENOUS DUPLEX LOWER Observed: 09/01/2018 Status: F Source: [place] EXTREMITY 12:13 PM [facility] Cardiovascular Services [address] [place] [address] Venous Duplex US - Ye Extrem 09/01/18 0825 MR#: [id number] Acct: [id number] Name: NINFA SAM Rep #: [id number] : 1945 73 From: Joe Miranda MD [...] cm Ordering Physician: [place] Kline Referring Physician: NO PCP Performed By: Antoinette Dobson, RDCS, RVT 09/01/18 1213 Date Joe Miranda MD CC: SENIOR CREDIT OFFICERAlee Chester; No Primary Care Physician; Donn Gutierres DO Date Dictated: 09/01/18824 Date Transcribed: 09/01/181212 Meeting Facilitator: Signed PROTEIN, TOTAL Collected: 09/01/2018 Status: F Source: [place] 6:54 AM [facility] TYPE CODE TESTS RESULT OUT OF RANGE REFERENCE UNITS LAB L501.1500 6.4-8.2 g/dL Low T PROT 6.0 LAB L501.1950 2.2-4.2 g/dL Normal GLOB 3.1 LAB L501.2000 0.9-2.4 RATIO Normal A/G 0.9 Performed By: #### L001.0705, L500.2500, L504.2610 #### [facility] [address] [place], [address] BASIC METABOLIC Collected: 09/01/2018 Status: F Source: [place] PROFILE (BMP) 6:54 AM [facility] TYPE CODE TESTS RESULT OUT OF [...] Performed By: #### L001.0705, L500.2500, L504.2610 #### [facility] [address] [place], [address] LDH Collected: 09/01/2018 Status: F Source: [place] 6:54 AM [facility] TYPE CODE TESTS RESULT OUT OF RANGE REFERENCE UNITS LAB L504.2610 84-246 U/L High LDH 316 Performed By: #### L001.0705, L500.2500, L504.2610 #### [facility] [address] [place], [place], [address] PROTHROMBIN TIME W/INR Collected: 09/01/2018 Status: F Source: [place] 6:54 AM [facility] TYPE CODE TESTS RESULT OUT OF RANGE REFERENCE UNITS LAB L300.4150 11.7-14.9 SECONDS Normal PROTIME 14.4 LAB L300.4200 Normal INR 1.1 Performed By: #### L300.3900 #### [facility] [address] [place], [address] CBC-COMPLETE BLOOD CNT Collected: 09/01/2018 Status: F Source: [place] NO DIFF 6:54 AM [facility] TYPE CODE TESTS RESULT OUT OF [...] MPV 10.1 Performed By: #### L100.0500 #### [facility] [address] [place], [place], [address] PARTIAL THROMBOPLAST Collected: 09/01/2018 Status: F Source: [place] TIME 6:54 AM [facility] TYPE CODE TESTS RESULT OUT OF RANGE REFERENCE UNITS LAB L300.4310 24.1-36.2 Seconds Normal PTT 33.1 Performed By: #### L300.4310 #### [facility] [address] [place], [place], [address] PROTHROMBIN TIME W/INR Collected: 09/01/2018 Status: F Source: [place] 2:08 AM [facility] Order Comment: Comments: per protocol for starting Heparin infusion TYPE CODE TESTS RESULT OUT OF RANGE REFERENCE UNITS LAB L300.4150 11.7-14.9 SECONDS Normal PROTIME 14.3 LAB L300.4200 Normal INR 1.1 Performed By: #### L300.3900, L300.4310 #### [facility] [address] [place], [place], [address] PARTIAL THROMBOPLAST Collected: 09/01/2018 Status: F Source: [place] TIME 2:08 AM [facility] Order Comment: Comments: per protocol for starting Heparin infusion TYPE CODE TESTS RESULT OUT OF RANGE REFERENCE UNITS LAB L300.4310 24.1-36.2 Seconds Normal PTT 29.3 Performed By: #### L300.3900, L300.4310 #### [facility] [address] [place], [place], [address] EMERGENCY DEPARTMENT Observed: 09/01/2018 Status: F Source: [place] SUMMARY 12:26 AM [facility] Medical Records Department [address] [place] [address] Emergency Department Summary 08/31/18 1509 MR#: [id number] Acct: [id number] Name: NINFA SAM Rep #: [id number] : 1945 73 From: Jocelyn Marquez MD [...] groin masses This note was generated with [employer] dictation software. It may contain incorrect words, [...] problems, contact your Primary Care Provider. Call [facility] ([phone]) or report to the closest Emergency Room. Call 911 if necessary. 09/01/18 0026 <Electronically signed by Jocelyn Marquez MD> Date Jocelyn Marquez MD Cosigner Signature (If Indicated): Date CC: No Primary Care Physician FLUID/WASHING Observed: 09/01/2018 Status: F Source: [place] 12:00 AM [facility] Patient: NINFA SAM : 1945 (73/F) Acct Num: [id number] Phys: Faye Dunbar MD Unit Num: [id number] Loc: MS3 WV416-1 Specimen: [id number] Received: 09/01/181420 Spec Type: Fluid TISSUES 1 TISSUES: THORACIC FLUID CYTOLOGY GROSS Received is 115 ml of cloudy yellow fluid labeled with the patient's name and and designated per the requisition as thoracentesis. Submitted for cytology preparation including cell block. / 09/01/18 TC:5 CPT: 79171, [address]3924 CYTOLOGY STUDY Slides are reviewed. DIAGNOSIS CYTOLOGY Thoracentesis fluid for cytology (cytospin and cell block): Negative for malignant cells. AM:yolanda 09/02/18 HEADER OPERATION: Ultrasound-guided left thoracentesis PRE-OP DIAGNOSIS: Left-sided effusion TISSUE SUBMITTED: Thoracentesis fluid for cytology Signed Aldair Jose 09/02/18 <signature on file> Performed By: #### PFLU #### [facility] [address] [place], [place], [address] D-DIMER QUANTITATIVE Collected: 08/31/2018 Status: F Source: [place] (DVT/PE) 10:57 PM [facility] TYPE CODE TESTS RESULT OUT OF RANGE REFERENCE UNITS LAB L300.8000 0.27-0.49 FEU/ug/m High alert D-DIMER 1.86 QUANT Result Comment: D-Dimer ELEVATED (>0.49): Additional studies and clinical assessments are indicated to conclude diagnosis of: Deep Vein Thrombosis (DVT) or Pulmonary Embolism (PE) CRITICAL VALUE VERIFIED. CALLED TO CHRISTOPH YANEZ 08/31/18 Heriberto7 Valeria Bain. RESULTS READ BACK BY SAME . Performed By: #### L300.8000 #### [facility] [address] [place] [place], [address] HISTORY AND PHYSICAL Observed: 08/31/2018 Status: F Source: [place] EXAM 9:42 PM [facility] Medical Records Department [address] [place] [address] History and Physical 08/31/18 1810 MR#: [id number] Acct: [id number] Name: NINFA SAM Rep #: [id number] : 1945 73 From: Tri Chester SENIOR CREDIT OFFICER-C PCP: Care Physician, No Primary Status: ADM IN Y Location: AL3 KH499-4 <Tri Chester - Last Filed: 08/31/18 18:50> [...] history Psychiatric History: No pertinent psych hx SCRUMMASTER History: No pertinent SCRUMMASTER history Lives: Spouse/ Significant Other Smoking Status: [...] This patient was seen in conjunction with SENIOR CREDIT OFFICERTri. I have independently interviewed and examined the [...] reviewed. Code Visit Inpatient E AND M: 50562 Init Hosp L3 08/31/18 1850 <Electronically signed by Tri Chester NP-C> Date Tri Chester SENIOR CREDIT OFFICER-C 08/31/182141<Electronically signed by Mat Prescott MD> Cosigner Signature: Date (if applicable) Mat Prescott MD CC: SENIOR CREDIT OFFICER-C Tri Chester; No Primary Care Physician; Mat Prescott MD Signed THORACENTESIS W US Observed: 08/31/2018 Status: F Source: [place] 6:53 PM [facility] Imaging Services [address] [place] [address] Thoracentesis W US MR#: [id number] Acct: [id number] Name: NINFA SAM Rep #: [id number] : 1945 F 73 From: Chris Alfaro MD PCP: Care Physician, No Primary Status: ADM IN Study: Thoracentesis W US Date of Exam: 09/01/18 Exam# [id number] Ordering Dr: Tri Chester PROCEDURE: ULTRASOUND GUIDED [...] local anesthesia. Under ultrasound guidance, a 5 Trin[place]adian thoracentesis needle/catheter system was advanced into the [...] Chris Alfaro MD at 14:26 EST Tel [phone], Service support , CC: [place] Chester; No Primary Care Physician Meeting Facilitator: Signed CBC W/DIFF, AUTOMATED Collected: 08/31/2018 Status: F Source: [place] 3:15 PM [facility] TYPE CODE TESTS RESULT OUT OF [...] LYMPHOPENIA NOTED Performed By: #### L100.0100 #### [facility] [address] [place], [address] BASIC METABOLIC Collected: 08/31/2018 Status: F Source: [place] PROFILE ([facility]) 3:15 PM [facility] TYPE CODE TESTS RESULT OUT OF [...] By: #### L500.2500, L500.3400, L501.4010, L501.9520 #### [facility] [address] [place], [address] LIVER PROFILE Collected: 08/31/2018 Status: F Source: [place] 3:15 PM [facility] TYPE CODE TESTS RESULT OUT OF [...] By: #### L500.2500, L500.3400, L501.4010, L501.9520 #### [facility] [address] [place], [address] TROPONIN-I Collected: 08/31/2018 Status: F Source: [place] 3:15 PM [facility] [place] TYPE CODE TESTS RESULT OUT OF RANGE REFERENCE UNITS LAB L501.4010 <0.045 ng/mL Normal < 0.015 TROPONIN-I Result Comment: TROPONIN-I EXPECTED VALUES <0.045 Negative 0.045 - 0.590 Consistent with Cardiac Damage > OR = 0.600 Critical Value Not every elevated troponin is indicative of TX. These values should be used with clinical judgement in examining the patient's clinical picture for diagnosis. To establish a diagnosis of TX versus myocardial injury, there must be a demonstrated rise and/or fall in the troponin values, in addition to ischemic symptoms, EKG changes, new regional wall motion abnormality, and/or angiographical evidence. PLEASE NOTE: REFERENCE RANGES EDITED 18 Performed By: #### L500.2500, L500.3400, L501.4010, L501.9520 #### [facility] [address] [facility] [place], [address] THYROID STIM HORMONE Collected: 08/31/2018 Status: F Source: [place] (TSH) 3:15 PM [facility] [place] TYPE CODE TESTS RESULT OUT OF RANGE REFERENCE UNITS LAB L501.9520 0.358-3.74 uIU/mL Normal TSH 1.70 Performed By: #### L500.2500, L500.3400, L501.4010, L501.9520 #### [facility] [address] [place], [address] BNP,B-TYPE NATRIURETIC Collected: 08/31/2018 Status: F Source: [place] 3:15 PM [facility] [place] TYPE CODE TESTS RESULT OUT OF RANGE REFERENCE UNITS LAB L503.6620 0-100 pg/mL Normal B-TYPE 26.6 TONIE PEP Performed By: #### L503.6620 #### [facility] [address] [facility] [place], [address] CHEST PA AND LATERAL Observed: 08/31/2018 Status: F Source: [place] 3:05 PM [facility] [place] Imaging Services [address] [place] [address] Chest PA and Lateral MR#: [id number] Acct: [id number] Name: NINFA SAM Gerardo Rep #: [id number] : 1945 F 73 From: Martín Madrid MD PCP: Care Physician, No Primary Status: REG ER Study: Chest PA and Lateral Date of Exam: 08/31/18 Exam# [id number] Ordering Dr: Jocelyn Marquez MD STUDY: X-RAY [...] No Primary Care Physician; Jocelyn Marquez MD Meeting Facilitator: Signed ALLERGIES ALLERGIES DATE TYPE / CODE NAME / CODE REACTION SEVERITY SOURCE 09/13/2018 Drug No Known Unknown Kip [facility] Allergy/4160 Allergies/F00 Hospital 02931(SNOMED 3337152(RXNOR Repository CT) M) ENCOUNTERS ENCOUNTERS ADMIT/DISCHARGE ACCOUNT ADMITTING ENCOUNTER LOCATION SOURCE NUMBER CLASS 09/19/2018 [id number] Jacob Reyes [facility] Inpatient Kip Kip 5 Encounter [facility] ing:TCURoom: Repository NMY56Rig: 1 09/13/2018 [id number] [place], Ambulatory BMSBuilding:B Kip 3 [place].WIP [facility]ly [facility] Hospital Repository 09/13/2018 [id number] [place], Ambulatory BMSBuilding:B Kip 2 [place] MS.Critical access hospital Repository 09/13/2018 [id number] [place], Ambulatory BMSBuilding:B [place] 5 [place] MS.CF.[facility] Repository 09/13/2018 [id number] [place], Ambulatory BMSBuilding:B [place] 4 [place] MS.CF.[facility] Repository 09/13/2018 [id number] [place], Ambulatory BMSBuilding:B [place] 6 [place] MS.Critical access hospital Repository 09/13/2018 [id number] [place], Ambulatory BMSBuilding:B [place] 0 [place] MS.CF.[facility] Repository 09/13/2018 [id number] [place], Ambulatory BMSBuilding:B [place] 9 [place] MS.Critical access hospital Repository 09/13/2018 [id number] [place], Ambulatory BMSBuilding:B Kip 9 [place] MS.CF.[facility] Repository 09/13/2018 [id number] [place], Ambulatory BMSBuilding:B [place] 7 [place] MS.CF.[facility] Repository 09/13/2018 [id number] [place], Ambulatory BMSBuilding:B [place] 2 [place] MS.Critical access hospital Repository 09/13/2018 [id number] [place], Ambulatory BMSBuilding:B Kip 1 [place] MS.CF.[facility] Repository 09/13/2018 [id number] [place], Ambulatory BMSBuilding:B [place] 9 [place] MS.CF.[facility] Repository 09/13/2018 [id number] [place], Ambulatory BMSBuilding:B Kip 9 [place] MS.Critical access hospital Repository 09/13/2018 [id number] [place], Ambulatory BMSBuilding:B Kip 6 [place] MS.CF.[facility] Repository 09/13/2018 [id number] [place], Ambulatory BMSBuilding:B [place] 0 [place] MS.CF.[facility] Repository 09/13/2018 [id number] [place], Ambulatory BMSBuilding:B Kip 9 [place] MS.CF.[facility] Repository 09/13/2018 [id number] [place], Ambulatory BMSBuilding:B [place] 6 [place] MS.Critical access hospital Repository 09/13/2018 [id number] [place], Ambulatory BMSBuilding:B Kip 6 [place] MS.CF.[facility] Repository 09/13/2018/ [id number] [place], Inpatient Kip Camby 8 6 [place]em Encounter [facility] ing:PCURoom: Repository KMY952Lkb: 1 09/11/2018/ [id number] Ambulatory BMSBuilding:B Kip 8 4 MS.[facility] Repository 09/11/2018 [id number] Ambulatory BMSBuilding:B Kip 7 MS.CF.[facility] Repository 09/11/2018 [id number] Ambulatory [place] Kip 1 [facility] ing:OMD Repository 09/10/2018 [id number] Ambulatory Camby Camby 1 [facility] ing:CT Repository 09/04/2018 [id number] Ambulatory Kip Kip 3 [facility] ing:PAVLAB Repository 09/04/2018/ [id number] Ambulatory BMSBuilding:B [place] 8 2 MS.[facility] Repository 09/04/2018/ [id number] Ambulatory BMSBuilding:B [place] 8 1 MS.[facility] Repository 08/31/2018/ [id number] [facility], Inpatient Kip Kip 8 5 Mat Encounter [facility] ing:WJ0Bfmt: Repository TS770Awf: 1 08/31/2018 [id number] [place], Ambulatory BMSBuilding:B Kip 8 Mat [place].Critical access hospital Repository 08/31/2018 [id number] [place], Ambulatory BMSBuilding:B Kip 7 Mat [place].Critical access hospital Repository 08/31/2018 [id number] [place], Ambulatory BMSBuilding:B Kip 7 Mat MS.CF.[facility] Repository 08/31/[id number] [facility], Ambulatory BMSBuilding:B [place] 0 Mat MS.WIP Repository 08/31/[id number] [facility], Ambulatory BMSBuilding:B [place] 3 Mat MS.CF.[facility] Repository 08/31/2018/ [id number] Ambulatory BMSBuilding:W [place] 8 4 [facility] Repository 08/31/2018/ [id number] Ambulatory BMSBuilding:B Kip 8 0 MS.CF.[facility] Repository PAYERS PAYERS ENCOUNTER GUARANTOR PAYER SUBSCRIBER SOURCE 09/19/2018 TUNDE Hawthorne Primary NINFA Shin [id number] TR Insurance:MEDICARE LINTDOB: Community [address] PART A [facility] [id number] Number: Repository [address]Ahr: 330 [id number] [phone] () Date:2018-09-19 09/19/2018 Secondary TUNDE LUNAB: Kpi Insurance:[facility] [id number] Rock HospitalPolicy Number: Hospital [id number] Repository Date:1222-40-37JO [id number] [place] [address] 72120XY: 09/19/2018 Tertiary NOT GIVENUNK [place] Insurance:SELF PAY [facility] Number: Effective Repository Date:2018-09-19 09/13/2018 TUNDE Hawthorne Primary NINFA Shin [id number] TR Insurance:MEDICARE LINTDOB: Community [address] PART [address] [facility] [id number] Number: Repository [address]Jfh: 330 [id number] [phone] (HP) Date:2018-09-13 09/13/2018 Secondary TUNDE LUNAB: [place] Insurance:[facility] [id number] Rock HospitalPolic Number: [facility] [id number] Repository Date:9629-14-72QK [id number] [place] [address] 89097WI: 09/13/2018 Tertiary NOT GIVENUNK [place] Insurance:SELF PAY [facility] Number: Effective Repository Date:2018-09-13 09/13/2018 TUNDE A Primary NINFA Shin [id number] TR Insurance:MEDICARE LINTDOB: Community [address] PART A [facility] [id number] Number: Repository [address]Gez: 330 [id number] [phone] (HP) Date:2018-09-13 09/13/2018 Secondary TUNDE A LINTDOB: [place] Insurance:[facility] [id number] Rock HospitalPolic Number: [facility] [id number] Repository Date:6519-07-25IM [id number] [place] [address] 00763HX: 09/13/2018 Tertiary NOT GIVENUNK Kip Insurance:SELF PAY [facility] Number: Effective Repository Date:2018-09-13 09/13/2018 TUNDE A Primary NINFA Padgettoster [id number] TR Insurance:MEDICARE LINTDOB: Community [address] PART A [facility] [id number] [place] Number: Repository [address]Anl: 330 [id number] [phone] (HP) Date:2018-09-13 09/13/2018 Secondary TUNDE A LINTDOB: Kip Insurance:[facility] [id number] Rock HospitalPolic Number: [facility] [id number] Repository Date:0709-96-91MA [id number] [place] [address] 50804IQ: 09/13/2018 Tertiary NOT GIVENUNK [place]ip Insurance:SELF PAY [facility] Number: Effective Repository Date:2018-09-13 09/13/2018 TUNDE A Primary NINFA Carrillo Kip [id number] TR Insurance:MEDICARE LINTDOB: Community [address] PART A [facility] [id number] Number: Repository [address]Kvi: 330 [id number] [phone] (HP) Date:2018-09-13 09/13/2018 Secondary TUNDE A LINTDOB: [place] Insurance:[facility] [id number] [facility] [id number] Repository Date:5834-16-00AS [id number] [place], [place] [address]DJ: 09/13/2018 Tertiary NOT GIVENUNK [place] Insurance:SELF PAY [facility] Number: Effective Repository Date:2018-09-13 09/13/2018 TUNDE A Primary NINFA Shin [id number] TR Insurance:MEDICARE LINTDOB: Community [address] PART A [facility] [id number] Number: Repository [address]Vdd: 330 [id number] [phone] () Date:2018-09-13 09/13/2018 Secondary TUNDE A LINTDOB: Kip Insurance:[facility] [id number] Community [facility] Number: [facility] [id number] Repository Date:5231-58-31LK [id number] [place], [place] [address]JZ: 09/13/2018 Tertiary NOT GIVENUNK Kip Insurance:SELF PAY [facility] Number: Effective Repository Date:2018-09-13 09/13/2018 TUNDE A Primary NINFA Padgettoster [id number] TR Insurance:MEDICARE LINTDOB: Community [address] PART A [facility] [id number] Number: Repository [address]Omz: 330 [id number] [phone] () Date:2018-09-13 09/13/2018 Secondary TUNDE A LINTDOB: [place] Insurance:[facility] [id number] [facility] Number: [facility] [id number] Repository Date:9579-93-22KQ [id number] [place], [place] [address]CV: 09/13/2018 Tertiary NOT GIVENUNK Kip Insurance:SELF PAY [facility] Number: Effective Repository Date:2018-09-13 09/13/2018 TUNDE A Primary NINFA Shin [id number] TR Insurance:MEDICARE LINTDOB: Community [address] PART A [facility] [id number] Number: Repository 85[address]Muq: 330 [id number] [phone] (HP) Date:2018-09-13 09/13/2018 Secondary TUNDE Hawthorne LINTDOB: [place] Insurance:[facility] [id number] Community SHAREPolicy Number: Hospital [id number] Repository Date:7304-64-17GL [id number] KATLYNRAZIA [address]SG: 09/13/2018 Tertiary NOT GIVENUNK [place] Insurance:SELF PAY Community [facility] Number: Effective Repository Date:2018-09-13 09/13/2018 TUNDE A Primary NINFA Carrillo Kip [id number] TR Insurance:MEDICARE LINTDOB: Community [address] PART A [facility] [id number] Number: Repository [address]Obc: 330 [id number] [phone] () Date:2018-09-13 09/13/2018 Secondary TUNDE A LINTDOB: Kip Insurance:[facility] [id number] Community SHAREPolicy Number: Hospital [id number] Repository Date:9042-29-05HU [id number] [place] [address]YQ: 09/13/2018 Tertiary NOT GIVENUNK [place] Insurance:SELF PAY Community [facility] Number: Effective Repository Date:2018-09-13 09/13/2018 TUNDE A Primary NINFA Padgettoster [id number] TR Insurance:MEDICARE LINTDOB: Community [address] PART A [facility] [id number] Number: Repository [address]Mng: 330 [id number] [phone] (HP) Date:2018-09-13 09/13/2018 Secondary TUNDE A LINTDOB: Kip Insurance:[facility] [id number] Community SHAREPolicy Number: Hospital [id number] Repository Date:4371-83-67JO [id number] [place] [address]YD: 09/13/2018 Tertiary NOT GIVENUNK [place] Insurance:SELF PAY Community [facility] Number: Effective Repository Date:2018-09-13 09/13/2018 TUNDE A Primary NINFA Padgettoster [id number] TR Insurance:MEDICARE LINTDOB: Community [address] PART A [facility] [id number] Number: Repository [address]Csh: 330 [id number] [phone] (HP) Date:2018-09-13 09/13/2018 Secondary TUNDE A LINTDOB: Kip Insurance:[facility] [id number] Community SHAREPolicy Number: [facility] [id number] Repository Date:3317-37-55CF [id number] [place] [address] 74635QN: 09/13/2018 Tertiary NOT GIVENUNK [place] Insurance:SELF PAY [facility] Number: Effective Repository Date:2018-09-13 09/13/2018 TUNDE A Primary NINFA Padgettoster [id number] TR Insurance:MEDICARE LINTDOB: Community [address] PART A [facility] [id number] Number: Repository 87[address]Njn: 330 [id number] [phone] () Date:2018-09-13 09/13/2018 Secondary TUNDE A LINTDOB: Kip Insurance:[facility] [id number] Rock HospitalPolic Number: [facility] [id number] Repository Date:4666-19-25QD [id number] [place], [place] [address]OD: 09/13/2018 Tertiary NOT GIVENUNK [place]ip Insurance:SELF PAY [facility] Number: Effective Repository Date:2018-09-13 09/13/2018 TUNDE A Primary NINFA Padgettoster [id number] TR Insurance:MEDICARE LINTDOB: Community [address] PART A [facility] [id number] Number: Repository 235[address]Xqq: 330 [id number] [phone] () Date:2018-09-13 09/13/2018 Secondary TUNDE A LINTDOB: [place] Insurance:[facility] [id number] [facility]: [facility] [id number] Repository Date:3144-78-13TH [id number] [place], [place] [address]IU: 09/13/2018 Tertiary NOT GIVENUNK [place] Insurance:SELF PAY [facility] Number: Effective Repository Date:2018-09-13 09/13/2018 TUNDE A Primary NINFA Shin [id number] TR Insurance:MEDICARE LINTDOB: Community [address] PART A [facility] [id number] Number: Repository [address]Fzc: 330 [id number] [phone] (HP) Date:2018-09-13 09/13/2018 Secondary TUNDE A LINTDOB: [place] Insurance:[facility] [id number] [facility] SHAREPolic Number: [facility] [id number] Repository Date:1218-15-82AE [id number] [place], [place] [address]GJ: 09/13/2018 Tertiary NOT GIVENUNK [place] Insurance:SELF PAY [facility] Number: Effective Repository Date:2018-09-13 09/13/2018 TUNDE A Primary NINFA Shin [id number] TR Insurance:MEDICARE LINTDOB: Community [address] PART A [facility] [id number] Number: Repository [address]Zir: 330 [id number] [phone] () Date:2018-09-13 09/13/2018 Secondary TUNDE A LINTDOB: Kip Insurance:[facility] [id number] [facility] Number: [facility] [id number] Repository Date:4063-18-87EL [id number] [place], [place] [address]IA: 09/13/2018 Tertiary NOT GIVENUNK [place] Insurance:SELF PAY [facility] Number: Effective Repository Date:2018-09-13 09/13/2018 TUNDE A Primary NINFA Shin [id number] TR Insurance:MEDICARE LINTDOB: Community [address] PART A [facility] [id number] Number: Repository 85[address]Bhd: 330 [id number] [phone] (HP) Date:2018-09-13 09/13/2018 Secondary TUNDE Hawthorne LINTDOB: Kip Insurance:[facility] [id number] Community SHAREPolicy Number: Hospital [id number] Repository Date:1106-99-68KA [id number] [place], [place] [address]PX: 09/13/2018 Tertiary NOT GIVENUNK [place] Insurance:SELF PAY Community [facility] Number: Effective Repository Date:2018-09-13 09/13/2018 TUNDE A Primary NINFA Padgettoster [id number] TR Insurance:MEDICARE LINTDOB: Community [address] PART A [facility] [id number] Number: Repository [address]Gtf: 330 [id number] [phone] () Date:2018-09-13 09/13/2018 Secondary TUNDE A LINTDOB: Kip Insurance:[facility] [id number] Community SHAREPolicy Number: [facility] [id number] Repository Date:7531-62-98UN [id number] [place], [place] [address]ZF: 09/13/2018 Tertiary NOT GIVENUNK [place] Insurance:SELF PAY Community [facility] Number: Effective Repository Date:2018-09-13 09/13/2018 TUNDE Hawthorne Primary NINFA Padgettoster [id number] TR Insurance:MEDICARE LINTDOB: Community [address] PART A [facility] [id number] Number: Repository [address]Gkv: 330 [id number] [phone] (HP) Date:2018-09-13 09/13/2018 Secondary TUNDE A LINTDOB: Kip Insurance:[facility] [id number] Community SHAREPolic Number: [facility] [id number] Repository Date:5396-87-81KO [id number] [place], [place] [address]PI: 09/13/2018 Tertiary NOT GIVENUNK [place] Insurance:SELF PAY Community [facility] Number: Effective Repository Date:2018-09-13 09/13/2018 TUNDE A Primary NINFA Shin [id number] TR Insurance:MEDICARE LINTDOB: Community [address] PART A [facility] [id number] Number: Repository 08990Zlg: 330 [id number] [phone] () Date:2018-09-13 09/13/2018 Secondary TUNDE Hawthorne LINTDOB: [place] Insurance:[facility] [id number] Community SHAREPolicy Number: [facility] [id number] Repository Date:4608-34-06AM [id number] [place] [address] 19370QL: 09/13/2018 Tertiary NOT GIVENUNK [place] Insurance:SELF PAY [facility] Number: Effective Repository Date:2018-09-13 09/13/2018 TUNDE A Primary NINFA Shin [id number] TR Insurance:MEDICARE LINTDOB: Community [address] PART A [facility] [id number] Number: Repository 8[address]Yfx: 330 [id number] [phone] () Date:2018-09-13 09/13/2018 Secondary TUNDE A LINTDOB: K[place] Insurance:[facility] [id number] Community SHAREPolicy Number: [facility] [id number] Repository Date:8833-70-50QD [id number] [place] [address] 99207AD: 09/13/2018 Tertiary NOT GIVENUNK [place] Insurance:SELF PAY [facility] Number: Effective Repository Date:2018-09-13 09/11/2018 TUNDE A Primary NINFA Shin [id number] TR Insurance:MEDICARE LINTDOB: Community [address] PART A [facility] [id number] Number: Repository 469[address]Ywj: 330 [id number] [phone] () Date:2018-09-11 09/11/2018 Secondary TUNDE A LINTDOB: Kip Insurance:[facility] [id number] [facility]ly [facility] SHAREPolic Number: [facility] [id number] Repository Date:7418-72-24BC [id number] [place] [address]NC: 09/11/2018 Tertiary NOT GIVENUNK [place] Insurance:SELF PAY [facility] Number: Effective Repository Date:2018-09-11 09/11/2018 TUNDE A Primary NINFA Shin [id number] TR Insurance:MEDICARE LINTDOB: Community [address] PART A [facility] [id number] Number: Repository [address]Fun: 330 [id number] [phone] () Date:2018-09-11 09/11/2018 Secondary TUNDE A LINTDOB: [place] Insurance:[facility] [id number] [facility]ly [facility] SHAREPolicy Number: [facility] [id number] Repository Date:3778-07-68CL [id number] [place], [place] [address]JG: 09/11/2018 Tertiary NOT GIVENUNK [place] Insurance:SELF PAY [facility] Number: Effective Repository Date:2018-09-11 09/11/2018 TUNDE A Primary NINFA Padgettoster [id number] TR Insurance:MEDICARE LINTDOB: Community [address] PART A [facility] [id number] Number: Repository 208[address]Rfn: 330 [id number] [phone] () Date:2018-09-11 09/11/2018 Secondary TUNDE A LINTDOB: [place] Insurance:[facility] [id number] [facility]ly [facility] SHAREPolicy Number: [facility] [id number] Repository Date:1019-96-76MQ [id number] [place], [place] [address]KH: 09/11/2018 Tertiary NOT GIVENUNK [place] Insurance:SELF PAY [facility] Number: Effective Repository Date:2018-09-11 09/10/2018 TUNDE A Primary NINFA Shin [id number] TR Insurance:MEDICARE LINTDOB: Community [address] PART A [facility] [id number] Number: Repository [address]Tdh: 330 [id number] [phone] () Date:2018-09-04 09/10/2018 Secondary TUNDE Hawthorne LINTDOB: [place] Insurance:[facility] [id number] Community SHAREPolicy Number: Hospital [id number] Repository Date:0656-49-28YR [id number] [place] [address]PW: 09/10/2018 Tertiary NOT GIVENUNK [place] Insurance:SELF PAY Community [facility] Number: Effective Repository Date:2018-09-04 09/04/2018 TUNDE Hawthorne Primary NINFA Shin [id number] TR Insurance:MEDICARE LINTDOB: Community BOX PART A [facility] [id number] Number: Repository [address]Pof: 330 [id number] [phone] () Date:2018-09-04 09/04/2018 Secondary TUNDE Hawthorne LINTDOB: [place] Insurance:[facility] [id number] Community SHAREPolicy Number: Hospital [id number] Repository Date:2725-24-90BZ [id number] [place], [place] [address]UG: 09/04/2018 Tertiary NOT GIVENUNK [place] Insurance:SELF PAY Community [facility] Number: Effective Repository Date:2018-09-04 09/04/2018 TUNDE Hawthorne Primary NINFA Shin [id number] TR Insurance:MEDICARE LINTDOB: 58 [address] PART A [facility] [id number] Hospital 09120Muj: (330) Number: Repository [phone] () [id number] Date:2018-09-02 09/04/2018 Secondary TUNDE Hawthorne LINTDOB: [place] Insurance:[facility] [id number] Community SHAREPolicy Number: [facility] [id number] Repository Date:9737-40-25IT [id number] [place], [place] [address]XQ: 09/04/2018 Tertiary NOT GIVENUNK Kip Insurance:SELF PAY [facility] Number: Effective Repository Date:2018-09-03 09/04/2018 TUNDE A Primary NINFA Shin [id number] TR Insurance:MEDICARE LINTDOB: Community [address] [place] [address] PART A olicy [id number] Hospital 61942Ygt: (330) Number: Repository [phone] () [id number] Date:2018-09-02 09/04/2018 Secondary TUNDE Hawthorne LINTDOB: [place] Insurance:[facility] [id number] Community SHAREPolicy Number: Hospital [id number] Repository Date:0099-05-04AQ [id number] [place] [address]GM: 09/04/2018 Tertiary NOT GIVENUNK [place] Insurance:SELF PAY Formerly [facility] Number: Effective Repository Date:2018-09-03 08/31/2018 TUNDE Hawthorne Primary NINFA Shin [id number] TR Insurance:MEDICARE LINTDOB: [address] PART A olic [id number] Hospital [address]Cfa: (330) Number: Repository [phone] () [id number] Date:2018-08-31 08/31/2018 Secondary TUNDE Hawthorne LINTDOB: [place] Insurance:[facility] [id number] Formerly [facility] SHAREPolicy Number: Hospital [id number] Repository Date:[id number] [id number] [place] [address]VK: 08/31/2018 Tertiary NOT GIVENUNK [place] Insurance:SELF PAY [facility]ly [facility] Number: Effective Repository Date:2018-08-31 08/31/2018 TUNDE Hawthorne Primary NINFA Shin [id number] TR Insurance:MEDICARE LINTDOB: Community [address] PART A BPolicy [id number] Number: Repository [id number]: 330 [id number] [phone] () Date:2018-08-31 08/31/2018 Secondary TUNDE A LINTDOB: [place] Insurance:[facility] [id number] Formerly [facility] SHAREPolicy Number: Hospital [id number] Repository Date:[id number] [id number] [place], [place] [address]XS: 08/31/2018 Tertiary NOT GIVENUNK [place] Insurance:SELF PAY Community [facility] Number: Effective Repository Date:2018-08-31 08/31/2018 TUNDE Hawthorne Primary NINFA Shin [id number] TR Insurance:MEDICARE LINTDOB: Community [address] PART A [facility] [id number] Number: Repository [id number]: 330 [id number] [phone] () Date:2018-08-31 08/31/2018 Secondary TUNDE Hawthorne LINTDOB: [place] Insurance:[facility] [id number] [facility]ly [facility] SHAREPolicy Number: Hospital [id number] Repository Date:7575-65-40TQ [id number] [place] [address]AX: 08/31/2018 Tertiary NOT GIVENUNK [place] Insurance:SELF PAY Community [facility] Number: Effective Repository Date:2018-08-31 08/31/2018 TUNDE Hawthorne Primary NINFA Shin [id number] TR Insurance:MEDICARE LINTDOB: [address] PART A [facility] [id number] Hospital [address]Noz: 330) Number: Repository [phone] () [id number] Date:2018-08-31 08/31/2018 Secondary TUNDE Hawthorne LINTDOB: [place] Insurance:[facility] [id number] Formerly [facility] SHAREPolicy Number: Hospital [id number] Repository Date:0287-09-72OP [id number] [place] [address]75[address]BI: 08/31/2018 Tertiary NOT GIVENUNK [place] Insurance:SELF PAY Community [facility] Number: Effective Repository Date:2018-08-31 08/31/2018 TUNDE Hawthorne Primary NINFA Shin [id number] TR Insurance:MEDICARE LINTDOB: Community [address] PART A [facility] [id number] Number: Repository [id number]: 330 [id number] [phone] () Date:2018-08-31 08/31/2018 Secondary TUNDE A LINTDOB: [place] Insurance:[facility] [id number] Community SHAREPolicy Number: Hospital [id number] Repository Date:[id number] [id number] [place], [place] [address]FS: 08/31/2018 Tertiary NOT GIVENUNK [place] Insurance:SELF PAY Community [facility] Number: Effective Repository Date:2018-08-31 08/31/2018 TUNDE Hawthorne Primary NINFA Gerardo Kip [id number] TR Insurance:MEDICARE LINTDOB: Community [address] [place] [address] PART A olic [id number] Hospital 25183Aaj: (330) Number: Repository [phone] () [id number] Date:2018-08-31 08/31/2018 Secondary TUNDE A LINTDOB: [place] Insurance:[facility] [id number] Community SHAREPolicy Number: Hospital [id number] Repository Date:3512-09-16CN [id number] RAZIA MCMILLAN [address]IC: 08/31/2018 Tertiary NOT GIVENUNK [place] Insurance:SELF PAY Community [facility] Number: Effective Repository Date:2018-08-31 08/31/2018 TUNDE Hawthorne Primary NINFA Shin [id number] TR Insurance:MEDICARE LINTDOB: Community [address] PART A [facility] [id number] Number: Repository [id number]: 330 [id number] [phone] () Date:2018-08-31 08/31/2018 Secondary TUNDE Hawthorne LINTDOB: [place] Insurance:[facility] [id number] Community SHAREPolicy Number: Hospital [id number] Repository Date:3903-62-56KY [id number] [place], [place] [address]CK: 08/31/2018 Tertiary NOT GIVENUNK [place] Insurance:SELF PAY Community [facility] Number: Effective Repository Date:2018-08-31 08/31/2018 TUNDE Hawthorne Primary NINFA Shin [id number] TR Insurance:MEDICARE LINTDOB: Community [address] PART A BPolicy [id number] Number: Repository [id number]: [phone] [id number] [phone] () Date:2018-08-31 08/31/2018 Secondary TUNDE A JOYCELYNTDOB: [place] Insurance:[facility] [id number] [facility]ly [facility] SHAREPolic Number: Hospital [id number] Repository Date:5774-05-56YQ [id number] RAZIA MCMILLAN [address]YF: 08/31/2018 Tertiary NOT GIVENUNK [place] Insurance:SELF PAY [facility]ly [facility] Number: Effective Repository Date:2018-08-31
== END ==
PROVIDERS: Referring Provider Nurse Practitioner Acute Care; Visit Provider Nurse Practitioner Acute Care
DX: R59.0 Localized enlarged lymph nodes (principal)
CPT/HCPCS: 36415; 86617; 86618

== ENCOUNTER → 2018-09-10 14:48 | Outpatient (CLI) | payer MEDICARE, OTHER, SELFPAY ==
[2018-09-04 11:30] VITALS: BMI 20.9
[2018-09-07 11:38] VITALS: BMI 20.9
--- NOTE | 2018-09-10 14:50 | CT_ITS ---
STUDY: CT ABDOMEN AND PELVIS WITH CONTRAST REASON FOR EXAM: Female, 73 years old. Pelvic lumps and abdominal pain RADIATION DOSAGE (If Supplied By Facility): CTDIvol = ( 11.85 ) mGy, DLP = ( 915.17 ) mGycm TECHNIQUE: Transaxial images were obtained from the dome of the diaphragm to the symphysis pubis with oral contrast. 100 ml of Isovue 300 contrast was administered. Sagittal and coronal images were reconstructed. Individualized dose optimization techniques were used for this CT. COMPARISON: None. FINDINGS: There is a large left-sided pleural effusion and moderate-sized right-sided effusion. There is bilateral lower lobe atelectasis. There are calcified mediastinal nodes. There is mild cardiomegaly. There is no pericardial effusion. There is a low-attenuation 1.4 cm focus of the posterior right hepatic lobe most likely representing a cyst. Normal gallbladder and extrahepatic biliary system. Normal spleen. Normal pancreas. The adrenals are poorly visualized. There is a mild right hydronephrosis. Normal left kidney. Normal visualized stomach. Normal small intestine. There is severe sigmoid diverticulosis. The appendix is visualized and appears normal. There are calcified plaques of the abdominal aorta. The abdominal aorta and IVC are encased by extensive retroperitoneal adenopathy. Adenopathy of the deep pelvic/iliac chains and bilateral inguinal regions is also noted. The largest left inguinal node measures 2.6 x 1.4 cm. The largest right inguinal node measures 3.3 x 5.3 cm. Normal urinary bladder. There is a small amount of pelvic ascites. There is increased subcutaneous fatty stranding suggestive of anasarca. There is a sclerotic focus of the T10 body. CT/Abdomen/Pelvis WITH Contrast IMPRESSION: 1. Large left-sided pleural effusion and moderate sized right-sided effusion. 2. Bilateral lower lobe atelectasis. 3. 1.4 cm probable cyst of the posterior right hepatic lobe. 4. Mild right hydronephrosis. 5. Severe sigmoid diverticulosis. 6. Extensive retroperitoneal, deep pelvic/iliac chain, and bilateral inguinal adenopathy. 7. Small amount of pelvic ascites. 8. Increased subcutaneous fatty stranding suggestive of anasarca. 9. Sclerotic focus of the T10 body which may represent metastatic lesion. Electronically Signed: Luke Tong MD at 17:00 EST , Service support ,
== END ==
PROVIDERS: Family Provider Internal Medicine; PCP Internal Medicine; Referring Provider Internal Medicine; Visit Provider Internal Medicine
DX: R19.00 Intra-abdominal and pelvic swelling, mass and lump, unspecified site (principal)
CPT/HCPCS: 74177; Q9967

== ENCOUNTER 2018-09-13 11:53 | Inpatient (IN) | payer MEDICARE, OTHER, SELFPAY ==
[2018-09-11 13:27] VITALS: BMI 21.1
[2018-09-13] VITALS (22 sets, daily range): BP systolic 107–174; BP diastolic 68–110; PULSE 93–125; RESP 12–31; TEMP 36.4–37.1; O2SAT 88–100; BMI 20.9
--- NOTE | 2018-09-13 12:05 | RAD_ITS ---
STUDY: X-RAY CHEST REASON FOR EXAM: Female, 73 years old. Hypoxia and shortness of breath TECHNIQUE: Single AP portable view of the chest. COMPARISON: 09/01/2018 FINDINGS: There is a persistent large left effusion. There is a persistent moderate right effusion. There is incomplete visualization of the heart due to the large effusions. Normal visualized thoracic spine. Normal visualized ribs, clavicles, and shoulders. Radiopaque densities in the upper abdomen compatible with contrast in diverticula. RAD/Chest 1 View (Portable) IMPRESSION: Persistent large left effusion. Persistent moderate right effusion. Electronically Signed: Selene Caro MD at 13:26 EST Tel , Service support ,
--- NOTE | 2018-09-13 12:05 | EKG12_ITS ---
Test Reason : DYSRHYTHMIA Blood Pressure : / mmHG Vent. Rate : 123 BPM Atrial Rate : 123 BPM P-R Int : 168 ms QRS Dur : 110 ms QT Int : 294 ms P-R-T Axes : 067 081 079 degrees QTc Int : 420 ms Sinus tachycardia Septal infarct , age undetermined Abnormal ECG Confirmed by JORGE ALEX, KELLY ([id number]), health editor RACHELLE VALERO ([id number]) on 09/15/2018 8:53:41 AM Referred By: Kamryn Prince Confirmed By:KELLY PATEL MD
[2018-09-13 12:35] LABS: Hematocrit 42.4 % (37-47); Hemoglobin 13.6 g/dl (12.0-15.0); Mean Corp Hgb Conc 32.1 g/gl (32-36); Mean Corpuscular Hgb 27.4 pg (27.0-32.0); Mean Corpuscular Volume 85.3 fL (81-99); Mean Platelet Vol. 9.8 fl (6.2-12.0); Platelet Count 285 K/mm3 (150-450); RBC Distribution Width CV 16.4 % (11.6-14.6); RBC Distribution Width SD 50.5 fl (35.1-43.9); Red Blood Count 4.97 M/mm3 (4.2-5.4); White Blood Count 7.4 K/mm3 (4.4-11.0)
[2018-09-13 12:42] LABS: Anion Gap 10 (5-15); BUN 17 mg/dL (7-18); BUN/Creat Ratio 22.8 RATIO (10-20); Calcium,Total 8.4 mg/dL (8.5-10.1); Chloride 109 mmol/L (98-107); Creatinine, Serum 0.75 mg/dL (0.55-1.02); EST Glomerular Filtration Rate 81 mL/min (>60); Est Glom Filt Rate - Afr Amer 98 mL/min (>60); Estimated Creatinine Clearance 41.45 ml/min; Glucose 108 mg/dL (74-106); Potassium 3.8 mmol/L (3.5-5.1); Sodium Level 144 mmol/L (136-145)
--- NOTE | 2018-09-13 12:46 | CT_ITS ---
STUDY: CTA CHEST REASON FOR EXAM: Female, 73 years old. Toxic concern for PE history of cancer RADIATION DOSAGE (If Supplied By Facility): CTDIvol = ( 26.74 ) mGy, DLP = ( 140.56 ) mGycm TECHNIQUE: The examination was performed with the intravenous administration of 75 ml of Isovue 370 contrast material. Post-processing of the angiographic images was performed, with multiplanar reformation and 3D reconstruction. Individualized dose optimization techniques were used for this CT. COMPARISON: September 13, 2018 chest x-ray, FINDINGS: There is a filling defect within the left upper lobe left lower branches right lower subsegmental branches segmental branches right upper branches of the pulmonary arteries consistent with pulmonary embolism. There is atherosclerotic calcification of the aortic arch with tortuosity. Vertebral artery has its takeoff from the aortic arch. There is no demonstrated aortic dissection. There is mild cardiac enlargement. There is prevascular lymphadenopathy or fluid measuring up to 3.4 x 1.4 cm. Normal hilar regions. Is a crowded appearance of the left greater than right hilum. There is a thickened appearance of the left greater the right hilum.. There is a very large left effusion with atelectasis. There is a moderate to large right effusion. There are a few scattered groundglass opacities. Normal chest wall structures. There is a focal sclerotic density at the level of T10 which in this setting may represent a focus of metastasis. There is an inhomogeneous appearance of the thyroid. There is ascites. CT/CTA Chest W/WO Contrast IMPRESSION: Findings are positive for bilateral pulmonary embolism. Large left effusion. Large right effusion. Lymphadenopathy. Abdominal ascites. Focal density in T12 focal sclerotic density vertebral body T10 suspicious for osteoblastic metastasis. N.B. : The above information has been verbally conveyed by Selene Caro MD to Christian Lopez [phone], on 09/13/2018 14:31:10 (ET). Electronically Signed: Selene Caro MD at 14:20 EST Tel , Service support ,
[2018-09-13 12:47] LABS: Scan Indicated on CBC? Y/N NO
[2018-09-13 12:56] LABS: Blood Gas Specimen Type VEN; O2 Delivery Device Nasal Can; SITE L Brachial; Time Given 1250; VBG BASE EXCESS 1 mmol/L (-1.0-3.5); VBG Bicarbonate 23 mmol/L (22-26); VBG Oxygen Content 24 mmol/L (23-33); VBG PO2 41 mmHg (25-40); VBG SO2 83 % (50-70); VBG pCO2 28.6 mmHg (41-51); VBG pH 7.52 (7.32-7.42)
[2018-09-13 13:25] LABS: International Normalized Ratio 1.1; Prothrombin Time (Protime)PT. 13.8 SECONDS (11.7-14.9)
[2018-09-13 13:26] LABS: Partial Thromboplast Time 29.8 Seconds (24.1-36.2)
[2018-09-13] MEDS: HEPARIN/D5w 25,000 UNITS 25,000 UNITS/250 ML IV.SOLN. 8 UNITS IV (13:29)
[2018-09-13] MEDS: Heparin Injection (Vial) 5,000 UNIT/ML VIAL 4000 UNIT IV (13:29)
--- NOTE | 2018-09-13 13:47 | ED.VISSUMM ---
- ER Visit Summary Date of Service: 09/13/18 Chief Complaint: Increased shortness of breath and heart rate History of Present Illness: The patient is a 73 F who was recently diagnosed with cancer. She had a thoracentesis which was nondiagnostic. There was a biopsy of an inguinal node and results are pending. She presents because of pulse ox reading of 80% on 2 L at home. She denies fever, chills night sweats. She states he has a cough which is nonproductive. She denies pleuritic chest pain. She denies abdominal pain or back pain. She does report increased swelling of her lower extremities. Physical Examination: Vital signs are remarkable for heart rate of 132, respiratory of 33 pulse ox of 80% on 6 L. She is not febrile. She is thin and pale in appearance. HEENT exam is unremarkable. Heart is rapid and regular. There is diminished breath sounds right absent breath sounds left. Abdomen is soft nontender. There is 3+ pitting edema both extremities. Her extremities are pale. There is no tenderness, leg vein distention, palpable coarseness on the distribution of deep venous system. She had a recent venous duplex study of her lower extremities and no clot was noted. Neuro exam is nonfocal. Test Results: EKG sinus tachycardia rate of 123 with decreased anterior force. [place] interval is normal. QRS duration is slightly prolonged. QT interval is normal. [place] is normal. There is no acute ischemic changes noted. There is motion artifact noted. Chest x-ray reveals bilateral pleural effusions left greater than right. The x-ray is improved from prior. CBC is unremarkable. Basic medical panel is unremarkable. Coags are normal. Venous blood gas reveals an alkalosis. Emergency Department Course and Treatment: In light of patient's increased sedentary lifestyle recent diagnosis of cancer concerned she has a PE since she is tachycardic, tachypneic and hypoxic which started abruptly. Chest x-ray was obtained because of diminished/absent breath sounds on the left and concern for worsening pleural effusion and/or pneumothorax. CBC was obtained to evaluate white count and hemoglobin. Electronic panel was obtained to assess kidney function prior to CTA if needed. Coags were obtained. Formal read by radiologist has not been available. Review of CTA by ga reveals significant bilateral pulmonary embolus. There is a significant clot/burden lobe. Treatment Plan: IV bolus of heparin and drip. Admit to ICU. Consult oncology and Dr. Mathews brother regarding prognosis, treatment etc. Patient was spoken to with regards to CODE STATUS. She would like to talk to her and her daughters. She was informed there is an order for life-sustaining measures and she specifically can choose what she wishes to have done or not have done. Disposition: Admit ICU Impression: 1. Bilateral pulmonary embolus 2. Sinus tachycardia documented on EKG and monitor 3. Respiratory failure with hypoxia secondary #1 4. Bilateral pleural effusion 5. Recent diagnosis of cancer 6. History of hypothyroidism This note was generated with [employer] dictation software. It may contain incorrect words, spelling, and punctuation that were not noted in review of the chart prior to signing ED Disposition - Plan for ED Patient: Chief Complaint: Shortness of Breath Referrals: Mikey Diamond MD [Primary Care Provider] -
--- NOTE | 2018-09-13 13:52 | ED.DCSUM_ITS ---
- ER Visit Summary Date of Service: 09/13/18 Chief Complaint: Increased shortness of breath and heart rate History of Present Illness: The patient is a 73 F who was recently diagnosed with cancer. She had a thoracentesis which was nondiagnostic. There was a biopsy of an inguinal node and results are pending. She presents because of pulse ox reading of 80% on 2 L at home. She denies fever, chills night sweats. She states he has a cough which is nonproductive. She denies pleuritic chest pain. She denies abdominal pain or back pain. She does report increased swelling of her lower extremities. Physical Examination: Vital signs are remarkable for heart rate of 132, respiratory of 33 pulse ox of 80% on 6 L. She is not febrile. She is thin and pale in appearance. HEENT exam is unremarkable. Heart is rapid and regular. There is diminished breath sounds right absent breath sounds left. Abdomen is soft nontender. There is 3+ pitting edema both extremities. Her extremities are pale. There is no tenderness, leg vein distention, palpable coarseness on the distribution of deep venous system. She had a recent venous duplex study of her lower extremities and no clot was noted. Neuro exam is nonfocal. Test Results: EKG sinus tachycardia rate of 123 with decreased anterior force. DC interval is normal. QRS duration is slightly prolonged. QT interval is normal. [place] is normal. There is no acute ischemic changes noted. There is motion artifact noted. Chest x-ray reveals bilateral pleural effusions left greater than right. The x-ray is improved from prior. CBC is unremarkable. Basic medical panel is unremarkable. Coags are normal. Venous blood gas reveals an alkalosis. Emergency Department Course and Treatment: In light of patient's increased sedentary lifestyle recent diagnosis of cancer concerned she has a PE since she is tachycardic, tachypneic and hypoxic which started abruptly. Chest x-ray was obtained because of diminished/absent breath sounds on the left and concern for worsening pleural effusion and/or pneumothorax. CBC was obtained to evaluate white count and hemoglobin. Electronic panel was obtained to assess kidney function prior to CTA if needed. Coags were obtained. Formal read by radiologist has not been available. Review of CTA by ok reveals significant bilateral pulmonary embolus. There is a significant clot/burden lobe. Treatment Plan: IV bolus of heparin and drip. Admit to ICU. Consult oncology and Dr. Mathews brother regarding prognosis, treatment etc. Patient was spoken to with regards to CODE STATUS. She would like to talk to her and her daughters. She was informed there is an order for life-sustaining measures and she specifically can choose what she wishes to have done or not have done. Disposition: Admit ICU Impression: 1. Bilateral pulmonary embolus 2. Sinus tachycardia documented on EKG and monitor 3. Respiratory failure with hypoxia secondary #1 4. Bilateral pleural effusion 5. Recent diagnosis of cancer 6. History of hypothyroidism This note was generated with [employer] dictation software. It may contain incorrect words, spelling, and punctuation that were not noted in review of the chart prior to signing ED Disposition - Plan for ED Patient: Chief Complaint: Shortness of Breath Referrals: Mikey Diamond MD [Primary Care Provider] -
--- NOTE | 2018-09-13 14:07 | PCM.HP.STD ---
Problem List (1) Generalized lymphadenopathy Status: Acute (2) Pleural effusion, bilateral Status: Acute (3) IBS (irritable bowel syndrome) Status: Chronic Comment: controlled with diet (4) History of hyperthyroidism Status: Chronic History of Present Illness Date of Admission: 09/13/18 Chief Complaint: Worsening shortness of breath. The patient is a 73 year old F with past medical history as mentioned above presented to the emergency room because of worsening shortness of breath. Her symptoms of shortness of breath started to worsen this past Friday after she had inguinal lymph node biopsy. Since then, she has been having worsening shortness of breath, she gets short of breath at rest, aggravated by minimal activity, not relieved by rest, associated with palpitation and dry cough without sputum production and today, she needed to increase her oxygen at home up to 4 L of oxygen. This morning, her pulse ox was 80% on 2 L according to the patient's daughter. She denied chest pain, dizziness or lightheadedness. She denies fever or chills. Patient was discharged from the hospital on August, and she was admitted for bilateral pleural effusion and generalized lymphadenopathy. She underwent left-sided thoracentesis both diagnostic and therapeutic, found to have lymphocytic exudative effusion and that was negative for malignant cells. This past Friday, September 11, 2018, she underwent right inguinal lymph node biopsy and histopathology results are pending at this time. During the recent admission, venous Doppler of both legs showed no evidence of acute DVT. CT scan abdomen and pelvis with contrast done on September 10, 2018 and revealed large left-sided pleural effusion, moderate right-sided pleural effusion, right mild hydronephrosis, extensive retroperitoneal, deep pelvic and iliac as well as bilateral inguinal lymphadenopathy and also found to have small amount of pelvic ascites. In the emergency department, patient was dyspneic and tachypneic, tachycardic, afebrile, blood pressure was stable. Pulse ox was 88% on 6 L. Her routine blood work was unremarkable. Venous blood gas revealed pH of 7.52, PCO2 of 41 and PCO2 of 28 which was mixed. EKG revealed sinus tachycardia without evidence of acute ischemic changes or cardiac arrhythmias. Chest x-ray revealed large left-sided pleural effusion and moderate right side pleural effusion. CTA chest done and revealed multiple filling defects within the left upper, left lower branches as well as right lower subsegmental branches and right upper branches consistent with multiple bilateral pulmonary emboli. She is being admitted for acute multiple bilateral PEs with acute on chronic hypoxic respiratory failure. Past Medical History Past Medical History (Chronic Problems): Chronic Problems (Last Updated 09/13/18 @ 14:06 by Kamryn Prince MD) Weight loss, non-intentional (Chronic) Pelvic mass in female (Chronic) IBS (irritable bowel syndrome) (Chronic) controlled with diet History of hyperthyroidism (Chronic) Medical History: Medical History (Last Updated 09/13/18 @ 14:06 by Kamryn Prince MD) IBS (irritable bowel syndrome) (Chronic) K58.9 controlled with diet History of hyperthyroidism (Chronic) Z86.39 Allergies No Known Allergies Allergy (Verified 09/13/18 11:54) Home Medications: Ambulatory Orders Medication Instructions Recorded Acetaminophen [Tylenol] 325 mg PO PRN PRN 08/31/18 Albuterol Inhaler [Ventolin Hfa] 1 - 2 puff INHALATION Q4H PRN PRN 09/02/18 #1 inhaler Surgical History: Surgical History (Last Reviewed 09/11/18 @ 13:26 by Agnes Denis) History of thoracentesis Z98.890 [facility] 09/01/18 History of lumpectomy Z98.890 breast lump, 1990s, benign Surgical History: no surgical history Psychiatric History: No pertinent psych hx [employer] History: No pertinent [employer] history Lives: Spouse/ Significant Other Smoking Status: Never smoker Alcohol: None Drugs: None - *Family History Maternal Family History: Family History (Last Reviewed 09/11/18 @ 13:26 by Agnes Denis) Mother Hypertension Cancer Diabetes Father Diabetes Kidney disease Hypertension Hyperlipemia Sister Breast cancer History Items: Diabetes Paternal Family History: Family History (Last Reviewed 09/11/18 @ 13:26 by Agnes Denis) Mother Hypertension Cancer Diabetes Father Diabetes Kidney disease Hypertension Hyperlipemia Sister Breast cancer History Items: Heart Disease Review of Systems Constitutional: Reports: Anorexia, Weakness, Fatigue. Denies: Chills, Fever Eyes: Denies: Blurred vision, Double vision, Drainage, Redness HEENT: Denies: Difficulty Hearing, Ear Pain, Eye Pain, Nasal Congestion, Sore Throat Cardiovascular: Reports: Palpitations. Denies: Chest Pain, Chest Pressure, Chest Tightness, Light Headedness, Syncope Respiratory: Reports: Cough, Shortness of Breath, Shortness of breath at rest, Shortness of breath upon exertion. Denies: Sputum production, Wheezing Gastrointestinal: Denies: Abdominal Pain, Constipation, Diarrhea, Nausea, Vomiting Genitourinary: Denies: Dysuria, Frequency, Hematuria Musculoskeletal: Denies: Arm Pain, Back Pain, Foot Pain Skin: Denies: Dryness, Rash Neurological: Denies: Balance problems, Double vision, Change in Speech, Slurred speech, Confusion, Focal weakness, Headaches, Incoordination, Numbness Psychiatric: Denies: Anxiety, Depression Endocrine: Denies: Change in Body Habitus, Polydipsia VTE Information - Inpt Only VTE Present on Admission: No VTE Mechan Device Prophylaxis: None VTE Pharm Prophylaxis ordered?: No Patient Problems: Active and Suspected Problems (Last Updated 09/13/18 @ 14:06 by Kamryn Prince MD) Generalized lymphadenopathy (Acute) Pleural effusion, bilateral (Acute) - Physical Exam General: Alert, Oriented x3, Cooperative, - - Dyspneic, tachypneic. HEENT: Atraumatic, PERRLA, EOMI, Normocephalic Oral: Moist Mucosa, No Gingival or Mucosal Lesions/ Ulcerations Neck: Supple, No JVD, Negative Carotid Bruits, Trachea Midline, Thyroid Normal Size and Texture Lungs: No rhonchi, No wheeze, No rales, Diminished, Short of Breath, Tachypneic, - - Absent breath sounds on the left side with dull percussion noted, markedly decreased breath sounds on the right base. Cardiovascular: Regular rate, Regular Rhythm, Normal S1, Normal S2, PMI Normal, Tachycardic Abdomen: Bowel Sounds Present, Soft, Non Tender, Non-Distended, No Hepato-splenomegaly Extremities: No clubbing, No cyanosis, Edema - + Edema. Skin: No rashes, No breakdown Lymphatic: No Cervical, Supraclavicular, or Inguinal Adenopathy Neurological: Cranial nerves II-XII grossly intact, Motor Exam 5/5 strength throughout Psych/Mental Status: Normal Affect, Appropriate, Alert and oriented to time, place, person, mood and affect Vital Signs Temp Pulse Resp BP Pulse Ox 97.6 F L 125 H 30 H 139/85 H 89 09/13/18 11:54 09/13/18 11:54 09/13/18 11:54 12/09/18 11:54 09/13/18 12:19 Oxygen Flow Rate (L/min) 6 Oxygen Delivery Method Nasal Cannula Weight: 118 lb Body Mass Index (BMI) 20.9 Laboratory Tests Past 24 Hrs 09/13/18 09/13/18 09/13/18 12:16 12:16 12:16 WBC 7.4 RBC 4.97 Hgb 13.6 Hct 42.4 MCV 85.3 MCH 27.4 MCHC 32.1 RDW 16.4 H RDW Differential 50.5 H Plt Count 285 MPV 9.8 PT 13.8 INR 1.1 APTT 29.8 Specimen Type Sample Site VBG pH VBG pO2 VBG O2 Sat (Calc) VBG O2 Content VBG Base Excess POC Mix VBG pCO2 Pt Tmp O2 Delivery Device Liter Flow Blood Gas Notified Whom Blood Gas Notified Time Sodium 144 Potassium 3.8 Chloride 109 H Carbon Dioxide 25.0 Anion Gap 10 BUN 17 Creatinine 0.75 Estim Creat Clear Calc 41.45 Est GFR (MDRD) Af Amer 98 Est GFR (MDRD) Non-Af 81 BUN/Creatinine Ratio 22.8 H Glucose 108 H Calcium 8.4 L 09/13/18 12:51 WBC RBC Hgb Hct MCV MCH MCHC RDW RDW Differential Plt Count MPV PT INR APTT Specimen Type JOSHUA Sample Site L Brachial VBG pH 7.52 H VBG pO2 41 H VBG O2 Sat (Calc) 83 H VBG O2 Content 24 VBG Base Excess 1 POC Mix VBG pCO2 Pt Tmp 28.6 L O2 Delivery Device Nasal Can Liter Flow 6.0 Blood Gas Notified Whom ED MD Blood Gas Notified Time 1250 Sodium Potassium Chloride Carbon Dioxide Anion Gap BUN Creatinine Estim Creat Clear Calc Est GFR (MDRD) Af Amer Est GFR (MDRD) Non-Af BUN/Creatinine Ratio Glucose Calcium Assessment/Plan All Active Problems (Last Updated 09/13/18 @ 14:06 by Kamryn Prince MD) Generalized lymphadenopathy (Acute) Pleural effusion, bilateral (Acute) This is a 73 years old female patient presented to the ED because of worsening shortness of breath, weakness and palpitation, found to have acute bilateral pulmonary emboli complicated by acute on chronic hypoxic respiratory failure. #1 acute bilateral pulmonary emboli: This is likely provoked secondary to probable cancer with unknown primary versus suspected bilateral DVT. Patient had bilateral venous Doppler during the recent admission and that was negative for DVTs of both legs. She had 2D echocardiogram done on September 01, 2018 that revealed ejection fraction of 65%, small pericardial effusion, moderate pulmonary hypertension. Today, her legs are swollen. Plan: Admit to intensive care unit, complete bedrest continue IV heparin drip, gentle IV fluids for hydration, IV metoprolol as needed for tachycardia, Tylenol as needed, IV antiemetics, repeat CBC and BMP tomorrow morning, bilateral venous Doppler, critical care consult, oncology consult, keep on clear liquids for now, PT OT evaluation and treatment. #2 acute on chronic hypoxic respiratory failure: During her last admission, she was discharged from the hospital on oxygen at 2 L. Today, pulse ox was 80% on 2 L at home. At this time, she is up to 6 L. Pulse ox is 89%. Plan: Continue IV heparin drip, incentive spirometer, bronchodilators, chest physiotherapy, consider therapeutic thoracentesis. #3 bilateral pleural effusion: Status post left thoracentesis, found to have lymphocytic exudative effusion. Pleural fluid was negative for malignant cells. Chest x-ray from today reviewed, revealed large left pleural effusion as well as moderate right pleural effusion. Patient may benefit from therapeutic thoracentesis at this time. #4 generalized lymphadenopathy: Status post right inguinal lymph node biopsy that was done on September 11, 2018, histopathology report is pending. Cancer is the likely diagnosis at this time, no primary is obvious at this point. She had a CT scan abdomen and pelvis done on September 10, 2018, results reviewed as above. #5 history of hyperthyroidism: Currently not on treatment. Her TSH was normal at 1.70 on August 31, 2018. #6 irritable bowel syndrome: Diet controlled, stable. Patient will be on clear liquids for now. #7 CODE STATUS: At this time, patient is unsure about CODE STATUS if her condition deteriorates. She wants to discuss with her . At this time, she will be full code. #8 DVT prophylaxis: This note was generated with [employer] software. It may contain incorrect words, spelling, and punctuation that were not noted in checking the note before signing. Code Visit Inpatient E&M: 71952 Init Hosp L3
--- NOTE | 2018-09-13 14:44 | VDLE_ITS ---
Reason For Study: Pulmonary Embolism RIGHT LEFT GSV is normal. GSV is normal. CFV is compressible, spontaneous, phasic, CFV is compressible, spontaneous, phasic, competent and demonstrates normal competent, and demonstrates normal augmentation. augmentation. Rt FV distal, Rt PopV, Rt T/P Trunk, Rt FV is compressible, spontaneous, phasic, GastrocV, Rt PTV, Rt PeroV, and Rt SoleusV competent and demonstrates normal are dilated and non compressible consistent augmentation. with acute DVT PTV is compressible. LT PerV is compressible. Rt FV distal thrombus appears very unstable T/P Trunk is compressible. Lt PopV, Lt GastrocV, and Lt SoleusV are Echogenic, vascular structure noted Rt Groin dilated and non compressible consistent with measuring 2.99cm x 4.61cm (as noted in acute DVT previous study done 08/31/18). Procedure Echogenic, vascular structure noted Lt Groin Exam performed portable in ICU/CCU. measuring 1.49cm x 3.41cm (as noted in A preliminary report was called and/or faxed previous study done 08/31/18). to Patients RN. Interpretation Summary Acute deep venous thrombosis right femoral, popliteal, tibioperoneal trunk, gastrocnemius, posterior tibial, peroneal and soleus veins. Very loose right distal femoral vein thrombus Right groin vascular mass 2.99 x 4.61cm as noted 09/01/18 Acute deep venous thrombosis left popliteal, gastrocnemius and soleus veins. Left groin vascular mass 1.49 x 3.41cm as noted 09/01/18 \ Ordering Physician: Kamryn Prince Referring Physician: Mikey Diamond Performed By: Verena Valdez, MIRIAN, RVT
[2018-09-13] MEDS: Dextrose 5%/0.9% NaCl 1,000 ML 60 ML IV (16:37)
--- NOTE | 2018-09-13 17:43 | CPS ---
Pt on 7L HFNC.
[2018-09-13] MEDS: Ipratropium/Albuterol Sulfate 3 ML AMPUL.NEB INHALATION (18:30)
[2018-09-13] MEDS: 0.9% NaCl Peripheral Flush Adult/Peds IV (20:16)
[2018-09-13] MEDS: LORazepam 2 MG/ML Syringe 1 MG IV (20:16)
[2018-09-13 20:30] LABS: Partial Thromboplast Time 89.3 Seconds (24.1-36.2)
[2018-09-14] VITALS (37 sets, daily range): BP systolic 101–155; BP diastolic 57–97; PULSE 88–106; RESP 12–30; TEMP 36.6–37.4; O2SAT 90–100
--- NOTE | 2018-09-14 | FLU_PTH ---
PATIENT: NINFA SAM LOC: [facility] U#:[id number] AGE/SX: 73/F ROOM: [facility] RE09/13/[address]: Dr. Kamryn Prince MD : 1945 BED: 1 DIS: 09/19/2018 SPEC #: [id number] RECD: 09/15/18 13:10 STATUS: MALIA REJudy #: [id number] SAVANNA: 09/14/18 00:[address]: Kamryn Prince DEPT: CYTOLOGY RECD BY: Bhanu Ramirez ENTERED: 09/15/18 13:11 SP TYPE: Fluid OTHR DR: DO Dr. Mikey Martinez MD Dr. Mansour Isckarus, MD Tissues: THORACIC FLUID Procedures: Pap Stain (control) Special Stain Group II Surgery Specimen Level IV Cell Block Cytospin Fluid HEADER OPERATION: Ultrasound-guided left thoracentesis PRE-OP DIAGNOSIS: Acute pulmonary emboli TISSUE SUBMITTED: Thoracentesis fluid for cytology DIAGNOSIS CYTOLOGY Thoracentesis fluid for cytology (cytospins): Negative for malignant cells. AM:yolanda 09/16/18 CYTOLOGY STUDY Slides are reviewed. CYTOLOGY GROSS Received is 60 ml of cloudy yellow fluid labeled with the patient's name and and designated per the requisition as thoracentesis. Submitted for cytology preparation including cell block. / 09/15/18 TC:5 CPT: 72427, 04305
[2018-09-14] MEDS: 0.9% NaCl Peripheral Flush Adult/Peds IV ×3 (02:20→23:13)
[2018-09-14 02:52] LABS: Partial Thromboplast Time 61.2 Seconds (24.1-36.2)
[2018-09-14 04:14] LABS: Absolute Neutrophil Count 5.1 X10^3/uL (2.0-7.7); Basophil# 0.01 X10^3/uL; Basophil% 0.2 % (0-1); Eosinophil# 0.02 X10^3/uL; Eosinophils% 0.3 % (0-5); Hemoglobin 12.3 g/dl (12.0-15.0); Lymphocyte % 10.5 % (19-41); Mean Corp Hgb Conc 32.4 g/gl (32-36); Mean Corpuscular Hgb 27.7 pg (27.0-32.0); Mean Corpuscular Volume 85.6 fL (81-99); Mean Platelet Vol. 9.5 fl (6.2-12.0); Monocyte# 0.76 X10^3/uL; Monocyte% 11.4 % (0-10); Neutrophil # 5.14 X10^3/uL (2.7-7.7); Neutrophil % 77.4 % (47-70); Platelet Count 264 K/mm3 (150-450); RBC Distribution Width CV 16.5 % (11.6-14.6); RBC Distribution Width SD 51.6 fl (35.1-43.9); Red Blood Count 4.44 M/mm3 (4.2-5.4); White Blood Count 6.6 K/mm3 (4.4-11.0)
[2018-09-14 04:26] LABS: Anion Gap 8 (5-15); BUN 17 mg/dL (7-18); BUN/Creat Ratio 22.4 RATIO (10-20); Chloride 111 mmol/L (98-107); Creatinine, Serum 0.76 mg/dL (0.55-1.02); EST Glomerular Filtration Rate 79 mL/min (>60); Est Glom Filt Rate - Afr Amer 96 mL/min (>60); Estimated Creatinine Clearance 41.45 ml/min; Glucose 130 mg/dL (74-106); Potassium 3.8 mmol/L (3.5-5.1); Sodium Level 146 mmol/L (136-145)
[2018-09-14 04:33] LABS: POSITIVE COUNT NO; POSITIVE DIFFERENTIAL NO; POSITIVE MORPHOLOGY NO
[2018-09-14 04:53] LABS: International Normalized Ratio 1.2; Prothrombin Time (Protime)PT. 15.5 SECONDS (11.7-14.9)
[2018-09-14] MEDS: Ipratropium/Albuterol Sulfate 3 ML AMPUL.NEB INHALATION ×3 (06:22→19:20)
--- NOTE | 2018-09-14 08:00 | US_ITS ---
PROCEDURE: ULTRASOUND GUIDED THORACENTESIS. DATE: September 14, 2018.. INDICATION: Female, 73 years old. Left pleural effusion. PHYSICIAN: Chris Alfaro M.D. PROCEDURE: The risks, benefits, and alternatives to the procedure were explained to the patient. The specific risks of bleeding, infection, and pneumothorax requiring chest tube insertion were discussed and accepted. Written informed consent was obtained. Ultrasonographic evaluation of the left lower pleural space was carried out. An adequate pocket was identified. The patient was placed in the sitting, upright position. The overlying skin was prepped and draped in sterile fashion. 1% lidocaine was administered subcutaneously for local anesthesia. Under ultrasound guidance, a 6 Yi thoracentesis needle/catheter system was advanced into the left posterior lower pleural fluid collection. Approximately 1470 mL of macy-colored fluid was drained. The catheter was removed, and a sterile dressing was applied. A specimen was collected and sent to the laboratory for analysis, as requested by the referring clinician. The patient tolerated the procedure well. A chest x-ray was ordered. US/Thoracentesis W US IMPRESSION: Ultrasound-guided left thoracentesis. Electronically Signed: Chris Alfaro MD at 15:36 EST Tel [phone], Service support ,
--- NOTE | 2018-09-14 08:15 | PN_ITS ---
Subjective: Chief complaint: Follow-up after admission for acute bilateral multiple pulmonary emboli and acute on chronic hypoxic respiratory failure. Patient seen and examined. No acute events overnight. She was started on BiPAP and tolerated. She stated that her breathing is better with BiPAP. Denied chest pain or palpitations. Her pulse ox is 97% on BiPAP, blood pressure and heart rate maintained. - Physical Exam General: Alert, Oriented x3, Cooperative, - - Moderately short of breath. HEENT: Atraumatic, PERRLA, EOMI, Normocephalic Oral: Moist Mucosa, No Gingival or Mucosal Lesions/ Ulcerations Neck: Supple, No JVD, Negative Carotid Bruits, Trachea Midline, Thyroid Normal Size and Texture Lungs: No wheeze, No rales, Diminished, Rhonchi, Short of Breath, - - Absent breath sounds on the left base with dull percussion noted, decreased breath sounds on the right base. Cardiovascular: Regular rate, Regular Rhythm, Normal S1, Normal S2, PMI Normal Abdomen: Bowel Sounds Present, Soft, Non Tender, Non-Distended, No Hepato- splenomegaly Extremities: No clubbing, No cyanosis, Edema Skin: No rashes, No breakdown Lymphatic: No Cervical, Supraclavicular, or Inguinal Adenopathy Neurological: Cranial nerves II-XII grossly intact, Neuro grossly intact Psych/Mental Status: Normal Affect, Appropriate, Alert and oriented to time, place, person, mood and affect Vital Signs Temp Pulse Resp BP Pulse Ox 98.8 F 99 25 H 121/76 H 98 09/14/18 04:00 09/14/18 07:20 09/14/18 07:00 09/14/18 07:00 09/14/18 07:00 Oxygen Flow Rate (L/min) 7 Oxygen Delivery Method Bi-pap Weight: 118 lb 9.739 oz Body Mass Index (BMI) 20.9 Intake and Output for Last 24 Hours 09/12/18 09/13/18 09/14/18 23:59 23:59 23:59 Intake Total 488.2 / 488.2 403.9 / 403.9 Output Total 425 / 425 125 / 125 Balance 63.2 / 63.2 278.9 / 278.9 Laboratory Tests Past 24 Hrs 09/13/18 09/13/18 09/13/18 12:16 12:16 12:16 WBC 7.4 RBC 4.97 Hgb 13.6 Hct 42.4 MCV 85.3 MCH 27.4 MCHC 32.1 RDW 16.4 H RDW Differential 50.5 H Plt Count 285 MPV 9.8 Immature Gran % (Auto) Neut % (Auto) Lymph % (Auto) [place] % (Auto) Eos % (Auto) Baso % (Auto) Absolute Neuts (auto) Absolute Lymphs (auto) Total Counted PT 13.8 INR 1.1 APTT 29.8 Specimen Type Sample Site VBG pH VBG pO2 VBG O2 Sat (Calc) VBG O2 Content VBG Base Excess POC Mix VBG pCO2 Pt Tmp O2 Delivery Device Liter Flow Blood Gas Notified Whom Blood Gas Notified Time Sodium 144 Potassium 3.8 Chloride 109 H Carbon Dioxide 25.0 Anion Gap 10 BUN 17 Creatinine 0.75 Estim Creat Clear Calc 41.45 Est GFR (MDRD) Af Amer 98 Est GFR (MDRD) Non-Af 81 BUN/Creatinine Ratio 22.8 H Glucose 108 H Calcium 8.4 L Troponin I 09/13/18 09/13/18 09/13/18 12:51 16:20 19:45 WBC RBC Hgb Hct MCV MCH MCHC RDW RDW Differential Plt Count MPV Immature Gran % (Auto) Neut % (Auto) Lymph % (Auto) [place] % (Auto) Eos % (Auto) Baso % (Auto) Absolute Neuts (auto) Absolute Lymphs (auto) Total Counted PT INR APTT Specimen Type JOSHUA Sample Site L Brachial VBG pH 7.52 H VBG pO2 41 H VBG O2 Sat (Calc) 83 H VBG O2 Content 24 VBG Base Excess 1 POC Mix VBG pCO2 Pt Tmp 28.6 L O2 Delivery Device Nasal Can Liter Flow 6.0 Blood Gas Notified Whom ED MD Blood Gas Notified Time 1250 Sodium Potassium Chloride Carbon Dioxide Anion Gap BUN Creatinine Estim Creat Clear Calc Est GFR (MDRD) Af Amer Est GFR (MDRD) Non-Af BUN/Creatinine Ratio Glucose Calcium Troponin I 0.291 H 0.263 H 09/13/18 09/13/18 09/14/18 19:45 22:10 02:20 WBC RBC Hgb Hct MCV MCH MCHC RDW RDW Differential Plt Count MPV Immature Gran % (Auto) Neut % (Auto) Lymph % (Auto) [place] % (Auto) Eos % (Auto) Baso % (Auto) Absolute Neuts (auto) Absolute Lymphs (auto) Total Counted PT INR APTT 89.3 H 61.2 H Specimen Type Sample Site VBG pH VBG pO2 VBG O2 Sat (Calc) VBG O2 Content VBG Base Excess POC Mix VBG pCO2 Pt Tmp O2 Delivery Device Liter Flow Blood Gas Notified Whom Blood Gas Notified Time Sodium Potassium Chloride Carbon Dioxide Anion Gap BUN Creatinine Estim Creat Clear Calc Est GFR (MDRD) Af Amer Est GFR (MDRD) Non-Af BUN/Creatinine Ratio Glucose Calcium Troponin I 0.284 H 09/14/18 09/14/18 09/14/18 04:05 04:05 04:05 WBC 6.6 RBC 4.44 Hgb 12.3 Hct 38.0 MCV 85.6 MCH 27.7 MCHC 32.4 RDW 16.5 H RDW Differential 51.6 H Plt Count 264 MPV 9.5 Immature Gran % (Auto) 0.200 Neut % (Auto) 77.4 H Lymph % (Auto) 10.5 L [place] % (Auto) 11.4 H Eos % (Auto) 0.3 Baso % (Auto) 0.2 Absolute Neuts (auto) 5.1 Absolute Lymphs (auto) 0.70 L Total Counted Not Reportable PT 15.5 H INR 1.2 APTT Specimen Type Sample Site VBG pH VBG pO2 VBG O2 Sat (Calc) VBG O2 Content VBG Base Excess POC Mix VBG pCO2 Pt Tmp O2 Delivery Device Liter Flow Blood Gas Notified Whom Blood Gas Notified Time Sodium 146 H Potassium 3.8 Chloride 111 H Carbon Dioxide 27.0 Anion Gap 8 BUN 17 Creatinine 0.76 Estim Creat Clear Calc 41.45 Est GFR (MDRD) Af Amer 96 Est GFR (MDRD) Non-Af 79 BUN/Creatinine Ratio 22.4 H Glucose 130 H Calcium 8.0 L Troponin I Medical Necessity - Tobacco Use Smoking Status: Never smoker Assessment/Plan All Active Problems (Last Updated 09/13/18 @ 14:06 by Kamryn Prince MD) Generalized lymphadenopathy (Acute) Pleural effusion, bilateral (Acute) This is a 73 years old female patient presented to the ED because of worsening shortness of breath, weakness and palpitation, found to have acute bilateral pulmonary emboli complicated by acute on chronic hypoxic respiratory failure. #1 acute bilateral pulmonary emboli: She is on IV heparin drip. Started on BiPAP overnight, pulse ox is maintained at 97% on BiPAP. This acute bilateral PEs likely provoked secondary to probable cancer with unknown primary versus suspected bilateral DVT. Patient had bilateral venous Doppler during the recent admission and that was negative for DVTs of both legs. She had 2D echocardiogram done on September 01, 2018 that revealed ejection fraction of 65%, small pericardial effusion, moderate pulmonary hypertension. Plan: Continue same treatment, continue BiPAP. #2 acute on chronic hypoxic respiratory failure: Multifactorial secondary to bilateral pulmonary emboli as well as pleural effusions. Started on BiPAP overnight, tolerating and doing well on BiPAP. During her last admission, she was discharged from the hospital on oxygen at 2 L. Plan for diagnostic and therapeutic left thoracentesis today. #3 bilateral pleural effusion: Status post left thoracentesis on September 01, 2018, found to have lymphocytic exudative effusion. Pleural fluid was negative for malignant cells. Chest x-ray from today reviewed, revealed large left pleural effusion as well as moderate right pleural effusion. Plan for left thoracentesis today. #4 generalized lymphadenopathy: Status post right inguinal lymph node biopsy that was done on September 11, 2018, histopathology report is pending. Cancer is the likely diagnosis at this time, no primary is obvious at this point. She had a CT scan abdomen and pelvis done on September 10, 2018, results reviewed as above. #5 history of hyperthyroidism: Currently not on treatment. Her TSH was normal at 1.70 on August 31, 2018. #6 irritable bowel syndrome: Diet controlled, stable. She is on clear liquids. #7 DVT prophylaxis: She is on IV heparin drip. This note was generated with [employer] dictation software. It may contain incorrect words, spelling, and punctuation that were not noted in checking the note before signing. Code Visit Inpatient E&M: 05523 Subs Hosp L3
--- NOTE | 2018-09-14 08:22 | NURSING ---
US tech at bedside for VDU
--- NOTE | 2018-09-14 09:57 | PCM.CON.CC ---
Problem List (1) Generalized lymphadenopathy Status: Acute (2) Pleural effusion, bilateral Status: Acute (3) Weight loss, non-intentional Status: Chronic (4) Pelvic mass in female Status: Chronic (5) IBS (irritable bowel syndrome) Status: Chronic Comment: controlled with diet (6) History of hyperthyroidism Status: Chronic Reason for Consult Date of Consultation: 09/14/18 Reason for Consultation: Pulmonary embolism/acute respiratory failure History of Present Illness: The patient is a 73 year old F, with past medical history listed below and well-known to me from previous hospitalization, who presented to [facility] on 09/13/2018 secondary to worsening shortness of breath. On presentation to the emergency room, patient was noted to be 80% on her 2 L nasal cannula. Patient was recently placed on supplemental oxygen following discharge from the hospital. Patient was also noted to have a heart rate of 132 bpm and remained 80% on the 6 L. Chest x-ray showed bilateral pleural effusions and a CT scan of the chest showed bilateral PEs. Patient was placed on a heparin drip, BiPAP and admitted to the intensive care unit Patient had been recently seen [facility] with a pleural effusion that responded well to thoracentesis. Patient was seen as an outpatient with close follow-up, but thoracentesis was noted to be a lymphocytic exudative effusion, but negative for malignant cells. On Friday, patient underwent a right inguinal lymph node biopsy, and results are still pending. To my knowledge, cancer has been suspected, but not confirmed by any testing to this point. Patient reports subjective improvement following initiation of BiPAP therapy. Patient has good response and denies any pain at this time. Patient denied any productive cough, fever, chills, nausea or vomiting at home. Patient has noted increased swelling of bilateral lower extremities. Review of systems otherwise negative x10 systems. Past Medical History Past Medical History (Chronic Problems): Chronic Problems (Last Updated 09/13/18 @ 14:06 by Kamryn Prince MD) Weight loss, non-intentional (Chronic) Pelvic mass in female (Chronic) IBS (irritable bowel syndrome) (Chronic) controlled with diet History of hyperthyroidism (Chronic) Medical History: Medical History (Last Updated 09/13/18 @ 14:06 by Kamryn Prince MD) IBS (irritable bowel syndrome) (Chronic) K58.9 controlled with diet History of hyperthyroidism (Chronic) Z86.39 Allergies No Known Allergies Allergy (Verified 09/13/18 11:54) Home Medications: Ambulatory Orders Medication Instructions Recorded Acetaminophen [Tylenol] 325 mg PO PRN PRN 08/31/18 Albuterol Inhaler [Ventolin Hfa] 1 - 2 puff INHALATION Q4H PRN PRN 09/02/18 #1 inhaler Surgical History: Surgical History (Last Reviewed 09/11/18 @ 13:26 by Agnes Denis) History of lumpectomy Z98.890 breast lump, 1990s, benign History of thoracentesis Z98.890 [facility] 09/01/18 Surgical History: no surgical history Psychiatric History: No pertinent psych hx [employer]WORK[employer] History: No pertinent [employer] history Lives: Spouse/ Significant Other Smoking Status: Never smoker Alcohol: None Drugs: None - *Family History Maternal Family History: Family History (Last Reviewed 09/11/18 @ 13:26 by Agnes Denis) Mother Hypertension Cancer Diabetes Father Diabetes Kidney disease Hypertension Hyperlipemia Sister Breast cancer History Items: Diabetes Paternal Family History: Family History (Last Reviewed 09/11/18 @ 13:26 by Agnes Denis) Mother Hypertension Cancer Diabetes Father Diabetes Kidney disease Hypertension Hyperlipemia Sister Breast cancer History Items: Heart Disease Review of Systems Comment: See HPI Objective: All imaging was personally reviewed including chest x-ray and CTA. CTA shows bilateral pleural effusions, left greater than right and bilateral large pulmonary emboli. Mediastinal lymphadenopathy is grossly unchanged compared to previous. - Physical Exam General: Alert, Oriented x3, Cooperative, No apparent distress, - - Good synchrony with BiPAP therapy. Cachectic. HEENT: Atraumatic, PERRLA, EOMI, Normocephalic, - - Some temporal wasting noted. No scleral icterus or injection noted. Oral: No Gingival or Mucosal Lesions/ Ulcerations, Dry Mucosa Neck: Supple, No Nodes, Trachea Midline, JVD, Right Lungs: No rhonchi, No wheeze, Diminished - Bilateral, Rales, - - Symmetric expansion. Dullness to percussion bilaterally at the bases Cardiovascular: Regular rate, Regular Rhythm, Normal S1, Normal S2, No murmurs, No rub noted, No Gallop Abdomen: Bowel Sounds Present, Soft, Non Tender, Non-Distended Extremities: No clubbing, No cyanosis, Capillary Refill Less than 3 Seconds, Edema Skin: No rashes, No breakdown Musculoskeletal: No Tenderness to Palpation of Joints or Extremities Lymphatic: No Cervical, Supraclavicular, or Inguinal Adenopathy Neurological: Cranial nerves II-XII grossly intact, Neuro grossly intact, Motor Exam 5/5 strength throughout Psych/Mental Status: Alert and oriented to time, place, person, mood and affect Vital Signs Temp Pulse Resp BP Pulse Ox 36.6 C 97 23 H 126/82 H 98 09/14/18 08:00 09/14/18 09:00 09/14/18 09:00 09/14/18 09:00 09/14/18 09:00 Oxygen Flow Rate (L/min) 7 Oxygen Delivery Method Bi-pap Weight: 53.8 kg Body Mass Index (BMI) 20.9 Intake and Output for Last 24 Hours 09/12/18 09/13/18 09/14/18 23:59 23:59 23:59 Intake Total 488.2 / 488.2 403.9 / 403.9 Output Total 425 / 425 125 / 125 Balance 63.2 / 63.2 278.9 / 278.9 Laboratory Tests Past 24 Hrs 09/13/18 09/13/18 09/13/18 12:16 12:16 12:16 WBC 7.4 RBC 4.97 Hgb 13.6 Hct 42.4 MCV 85.3 MCH 27.4 MCHC 32.1 RDW 16.4 H RDW Differential 50.5 H Plt Count 285 MPV 9.8 Immature Gran % (Auto) Neut % (Auto) Lymph % (Auto) [place] % (Auto) Eos % (Auto) Baso % (Auto) Absolute Neuts (auto) Absolute Lymphs (auto) Total Counted PT 13.8 INR 1.1 APTT 29.8 Specimen Type Sample Site VBG pH VBG pO2 VBG O2 Sat (Calc) VBG O2 Content VBG Base Excess POC Mix VBG pCO2 Pt Tmp O2 Delivery Device Liter Flow Blood Gas Notified Whom Blood Gas Notified Time Sodium 144 Potassium 3.8 Chloride 109 H Carbon Dioxide 25.0 Anion Gap 10 BUN 17 Creatinine 0.75 Estim Creat Clear Calc 41.45 Est GFR (MDRD) Af Amer 98 Est GFR (MDRD) Non-Af 81 BUN/Creatinine Ratio 22.8 H Glucose 108 H Calcium 8.4 L Troponin I 09/13/18 09/13/18 09/13/18 12:51 16:20 19:45 WBC RBC Hgb Hct MCV MCH MCHC RDW RDW Differential Plt Count MPV Immature Gran % (Auto) Neut % (Auto) Lymph % (Auto) [place] % (Auto) Eos % (Auto) Baso % (Auto) Absolute Neuts (auto) Absolute Lymphs (auto) Total Counted PT INR APTT Specimen Type JOSHUA Sample Site L Brachial VBG pH 7.52 H VBG pO2 41 H VBG O2 Sat (Calc) 83 H VBG O2 Content 24 VBG Base Excess 1 POC Mix VBG pCO2 Pt Tmp 28.6 L O2 Delivery Device Nasal Can Liter Flow 6.0 Blood Gas Notified Whom ED MD Blood Gas Notified Time 1250 Sodium Potassium Chloride Carbon Dioxide Anion Gap BUN Creatinine Estim Creat Clear Calc Est GFR (MDRD) Af Amer Est GFR (MDRD) Non-Af BUN/Creatinine Ratio Glucose Calcium Troponin I 0.291 H 0.263 H 09/13/18 09/13/18 09/14/18 19:45 22:10 02:20 WBC RBC Hgb Hct MCV MCH MCHC RDW RDW Differential Plt Count MPV Immature Gran % (Auto) Neut % (Auto) Lymph % (Auto) [place] % (Auto) Eos % (Auto) Baso % (Auto) Absolute Neuts (auto) Absolute Lymphs (auto) Total Counted PT INR APTT 89.3 H 61.2 H Specimen Type Sample Site VBG pH VBG pO2 VBG O2 Sat (Calc) VBG O2 Content VBG Base Excess POC Mix VBG pCO2 Pt Tmp O2 Delivery Device Liter Flow Blood Gas Notified Whom Blood Gas Notified Time Sodium Potassium Chloride Carbon Dioxide Anion Gap BUN Creatinine Estim Creat Clear Calc Est GFR (MDRD) Af Amer Est GFR (MDRD) Non-Af BUN/Creatinine Ratio Glucose Calcium Troponin I 0.284 H 09/14/18 09/14/18 09/14/18 04:05 04:05 04:05 WBC 6.6 RBC 4.44 Hgb 12.3 Hct 38.0 MCV 85.6 MCH 27.7 MCHC 32.4 RDW 16.5 H RDW Differential 51.6 H Plt Count 264 MPV 9.5 Immature Gran % (Auto) 0.200 Neut % (Auto) 77.4 H Lymph % (Auto) 10.5 L [place] % (Auto) 11.4 H Eos % (Auto) 0.3 Baso % (Auto) 0.2 Absolute Neuts (auto) 5.1 Absolute Lymphs (auto) 0.70 L Total Counted Not Reportable PT 15.5 H INR 1.2 APTT Specimen Type Sample Site VBG pH VBG pO2 VBG O2 Sat (Calc) VBG O2 Content VBG Base Excess POC Mix VBG pCO2 Pt Tmp O2 Delivery Device Liter Flow Blood Gas Notified Whom Blood Gas Notified Time Sodium 146 H Potassium 3.8 Chloride 111 H Carbon Dioxide 27.0 Anion Gap 8 BUN 17 Creatinine 0.76 Estim Creat Clear Calc 41.45 Est GFR (MDRD) Af Amer 96 Est GFR (MDRD) Non-Af 79 BUN/Creatinine Ratio 22.4 H Glucose 130 H Calcium 8.0 L Troponin I Clinical Impression(s) from Imaging Studies Chest X-Ray 09/13/18 12:05 IMPRESSION: Persistent large left effusion. Persistent moderate right effusion. Electronically Signed: Selene Caro MD at 13:26 EST Tel , Service support , Chest CTA 09/13/18 12:46 IMPRESSION: Findings are positive for bilateral pulmonary embolism. Large left effusion. Large right effusion. Lymphadenopathy. Abdominal ascites. Focal density in T12 focal sclerotic density vertebral body T10 suspicious for osteoblastic metastasis. N.B. : The above information has been verbally conveyed by Selene Crao MD to Christian Lopez [phone], on 09/13/2018 14:31:10 (ET). Electronically Signed: Selene Caro MD at 14:20 EST Tel , Service support , ADDENDUM: 09/13/18 1438 Assessment/Plan RECOMMENDATIONS: 1. Continue AVAPS until thoracentesis 2. Hold heparin drip to facilitate thoracentesis 3. Reassess post procedure for BiPAP requirements 4. Await biopsy results 5. Reinitiate heparin drip following thoracentesis if no complications 6. Send pleural fluid for flow cytometry IMPRESSIONS: 1. Acute hypoxic respiratory failure secondary to bilateral pleural effusions and PE High clinical suspicion for underlying malignancy, but to my knowledge this has not been verified by multiple biopsies at this time. Patient does have significant lymphadenopathy noted. Pleural fluid will be sent for flow cytometry. Patient does have a groin lymph node that is currently pending pathologic review. Patient is currently on AVAPS and tolerating well. Will need to reassess following thoracentesis if this is still required. Cannot exclude the need for a right-sided thoracentesis tomorrow, so would continue with heparin drip overnight. Clinical suspicion the patient will require Lovenox therapy on discharge given probable malignant trigger. 2. Probable malignancy Patient is wishing to be aggressive at this time until a diagnosis can be made. If prognosis is poor, cannot exclude palliative measures moving forward. Patient is on a heparin drip at this time to facilitate procedures if necessary. Will call down to pathology to see if lymph node has been evaluated. 3. Advanced age/lack of primary care/cachexia/hypernatremia/hyperchloremia Complicates care, management, recovery and prognosis. Hypernatremia and hyperchloremia are likely secondary to fluid resuscitation. We will KVO IV fluids. TIME: 33 minutes of critical care time spent addressing patient's acute hypoxic respiratory failure, pulmonary embolism, review of all data and collaboration with care team (8 AM to 10 AM) Code Visit 9xxxx: [id number] Critical care first hour
--- NOTE | 2018-09-14 10:01 | CON.PCM_ITS ---
Problem List (1) Generalized lymphadenopathy Status: Acute (2) Pleural effusion, bilateral Status: Acute (3) Weight loss, non-intentional Status: Chronic (4) Pelvic mass in female Status: Chronic (5) IBS (irritable bowel syndrome) Status: Chronic Comment: controlled with diet (6) History of hyperthyroidism Status: Chronic Reason for Consult Date of Consultation: 09/14/18 Reason for Consultation: Pulmonary embolism/acute respiratory failure History of Present Illness: The patient is a 73 year old F, with past medical history listed below and well- known to me from previous hospitalization, who presented to [facility] on 09/13/2018 secondary to worsening shortness of breath. On presentation to the emergency room, patient was noted to be 80% on her 2 L nasal cannula. Patient was recently placed on supplemental oxygen following discharge from the hospital. Patient was also noted to have a heart rate of 132 bpm and remained 80% on the 6 L. Chest x-ray showed bilateral pleural effusions and a CT scan of the chest showed bilateral PEs. Patient was placed on a heparin drip, BiPAP and admitted to the intensive care unit Patient had been recently seen [facility] with a pleural effusion that responded well to thoracentesis. Patient was seen as an outpatient with close follow-up, but thoracentesis was noted to be a lymphocytic exudative effusion, but negative for malignant cells. On Friday, patient underwent a right inguinal lymph node biopsy, and results are still pending. To my knowledge, cancer has been suspected, but not confirmed by any testing to this point. Patient reports subjective improvement following initiation of BiPAP therapy. Patient has good response and denies any pain at this time. Patient denied any productive cough, fever, chills, nausea or vomiting at home. Patient has noted increased swelling of bilateral lower extremities. Review of systems otherwise negative x10 systems. Past Medical History Past Medical History (Chronic Problems): Chronic Problems (Last Updated 09/13/18 @ 14:06 by Kamryn Prince MD) Weight loss, non-intentional (Chronic) Pelvic mass in female (Chronic) IBS (irritable bowel syndrome) (Chronic) controlled with diet History of hyperthyroidism (Chronic) Medical History: Medical History (Last Updated 09/13/18 @ 14:06 by Kamryn Prince MD) IBS (irritable bowel syndrome) (Chronic) K58.9 controlled with diet History of hyperthyroidism (Chronic) Z86.39 Allergies No Known Allergies Allergy (Verified 09/13/18 11:54) Home Medications: Ambulatory Orders Medication Instructions Recorded Acetaminophen [Tylenol] 325 mg PO PRN PRN 08/31/18 Albuterol Inhaler [Ventolin Hfa] 1 - 2 puff INHALATION Q4H PRN PRN 09/02/18 #1 inhaler Surgical History: Surgical History (Last Reviewed 09/11/18 @ 13:26 by Agnes Denis) History of lumpectomy Z98.890 breast lump, 1990s, benign History of thoracentesis Z98.890 [facility] 09/01/18 Surgical History: no surgical history Psychiatric History: No pertinent psych hx 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 Lives: Spouse/ Significant Other Smoking Status: Never smoker Alcohol: None Drugs: None - *Family History Maternal Family History: Family History (Last Reviewed 09/11/18 @ 13:26 by Agnes Denis) Mother Hypertension Cancer Diabetes Father Diabetes Kidney disease Hypertension Hyperlipemia Sister Breast cancer History Items: Diabetes Paternal Family History: Family History (Last Reviewed 09/11/18 @ 13:26 by Agnes Denis) Mother Hypertension Cancer Diabetes Father Diabetes Kidney disease Hypertension Hyperlipemia Sister Breast cancer History Items: Heart Disease Review of Systems Comment: See HPI Objective: All imaging was personally reviewed including chest x-ray and CTA. CTA shows bilateral pleural effusions, left greater than right and bilateral large pulmonary emboli. Mediastinal lymphadenopathy is grossly unchanged compared to previous. - Physical Exam General: Alert, Oriented x3, Cooperative, No apparent distress, - - Good synchrony with BiPAP therapy. Cachectic. HEENT: Atraumatic, PERRLA, EOMI, Normocephalic, - - Some temporal wasting noted. No scleral icterus or injection noted. Oral: No Gingival or Mucosal Lesions/ Ulcerations, Dry Mucosa Neck: Supple, No Nodes, Trachea Midline, JVD, Right Lungs: No rhonchi, No wheeze, Diminished - Bilateral, Rales, - - Symmetric expansion. Dullness to percussion bilaterally at the bases Cardiovascular: Regular rate, Regular Rhythm, Normal S1, Normal S2, No murmurs, No rub noted, No Gallop Abdomen: Bowel Sounds Present, Soft, Non Tender, Non-Distended Extremities: No clubbing, No cyanosis, Capillary Refill Less than 3 Seconds, Edema Skin: No rashes, No breakdown Musculoskeletal: No Tenderness to Palpation of Joints or Extremities Lymphatic: No Cervical, Supraclavicular, or Inguinal Adenopathy Neurological: Cranial nerves II-XII grossly intact, Neuro grossly intact, Motor Exam 5/5 strength throughout Psych/Mental Status: Alert and oriented to time, place, person, mood and affect Vital Signs Temp Pulse Resp BP Pulse Ox 36.6 C 97 23 H 126/82 H 98 09/14/18 08:00 09/14/18 09:00 09/14/18 09:00 09/14/18 09:00 09/14/18 09:00 Oxygen Flow Rate (L/min) 7 Oxygen Delivery Method Bi-pap Weight: 53.8 kg Body Mass Index (BMI) 20.9 Intake and Output for Last 24 Hours 09/12/18 09/13/18 09/14/18 23:59 23:59 23:59 Intake Total 488.2 / 488.2 403.9 / 403.9 Output Total 425 / 425 125 / 125 Balance 63.2 / 63.2 278.9 / 278.9 Laboratory Tests Past 24 Hrs 09/13/18 09/13/18 09/13/18 12:16 12:16 12:16 WBC 7.4 RBC 4.97 Hgb 13.6 Hct 42.4 MCV 85.3 MCH 27.4 MCHC 32.1 RDW 16.4 H RDW Differential 50.5 H Plt Count 285 MPV 9.8 Immature Gran % (Auto) Neut % (Auto) Lymph % (Auto) [place] % (Auto) Eos % (Auto) Baso % (Auto) Absolute Neuts (auto) Absolute Lymphs (auto) Total Counted PT 13.8 INR 1.1 APTT 29.8 Specimen Type Sample Site VBG pH VBG pO2 VBG O2 Sat (Calc) VBG O2 Content VBG Base Excess POC Mix VBG pCO2 Pt Tmp O2 Delivery Device Liter Flow Blood Gas Notified Whom Blood Gas Notified Time Sodium 144 Potassium 3.8 Chloride 109 H Carbon Dioxide 25.0 Anion Gap 10 BUN 17 Creatinine 0.75 Estim Creat Clear Calc 41.45 Est GFR (MDRD) Af Amer 98 Est GFR (MDRD) Non-Af 81 BUN/Creatinine Ratio 22.8 H Glucose 108 H Calcium 8.4 L Troponin I 09/13/18 09/13/18 09/13/18 12:51 16:20 19:45 WBC RBC Hgb Hct MCV MCH MCHC RDW RDW Differential Plt Count MPV Immature Gran % (Auto) Neut % (Auto) Lymph % (Auto) [place] % (Auto) Eos % (Auto) Baso % (Auto) Absolute Neuts (auto) Absolute Lymphs (auto) Total Counted PT INR APTT Specimen Type JOSHUA Sample Site L Brachial VBG pH 7.52 H VBG pO2 41 H VBG O2 Sat (Calc) 83 H VBG O2 Content 24 VBG Base Excess 1 POC Mix VBG pCO2 Pt Tmp 28.6 L O2 Delivery Device Nasal Can Liter Flow 6.0 Blood Gas Notified Whom ED MD Blood Gas Notified Time 1250 Sodium Potassium Chloride Carbon Dioxide Anion Gap BUN Creatinine Estim Creat Clear Calc Est GFR (MDRD) Af Amer Est GFR (MDRD) Non-Af BUN/Creatinine Ratio Glucose Calcium Troponin I 0.291 H 0.263 H 09/13/18 09/13/18 09/14/18 19:45 22:10 02:20 WBC RBC Hgb Hct MCV MCH MCHC RDW RDW Differential Plt Count MPV Immature Gran % (Auto) Neut % (Auto) Lymph % (Auto) [place] % (Auto) Eos % (Auto) Baso % (Auto) Absolute Neuts (auto) Absolute Lymphs (auto) Total Counted PT INR APTT 89.3 H 61.2 H Specimen Type Sample Site VBG pH VBG pO2 VBG O2 Sat (Calc) VBG O2 Content VBG Base Excess POC Mix VBG pCO2 Pt Tmp O2 Delivery Device Liter Flow Blood Gas Notified Whom Blood Gas Notified Time Sodium Potassium Chloride Carbon Dioxide Anion Gap BUN Creatinine Estim Creat Clear Calc Est GFR (MDRD) Af Amer Est GFR (MDRD) Non-Af BUN/Creatinine Ratio Glucose Calcium Troponin I 0.284 H 09/14/18 09/14/18 09/14/18 04:05 04:05 04:05 WBC 6.6 RBC 4.44 Hgb 12.3 Hct 38.0 MCV 85.6 MCH 27.7 MCHC 32.4 RDW 16.5 H RDW Differential 51.6 H Plt Count 264 MPV 9.5 Immature Gran % (Auto) 0.200 Neut % (Auto) 77.4 H Lymph % (Auto) 10.5 L [place] % (Auto) 11.4 H Eos % (Auto) 0.3 Baso % (Auto) 0.2 Absolute Neuts (auto) 5.1 Absolute Lymphs (auto) 0.70 L Total Counted Not Reportable PT 15.5 H INR 1.2 APTT Specimen Type Sample Site VBG pH VBG pO2 VBG O2 Sat (Calc) VBG O2 Content VBG Base Excess POC Mix VBG pCO2 Pt Tmp O2 Delivery Device Liter Flow Blood Gas Notified Whom Blood Gas Notified Time Sodium 146 H Potassium 3.8 Chloride 111 H Carbon Dioxide 27.0 Anion Gap 8 BUN 17 Creatinine 0.76 Estim Creat Clear Calc 41.45 Est GFR (MDRD) Af Amer 96 Est GFR (MDRD) Non-Af 79 BUN/Creatinine Ratio 22.4 H Glucose 130 H Calcium 8.0 L Troponin I Clinical Impression(s) from Imaging Studies Chest X-Ray 09/13/18 12:05 IMPRESSION: Persistent large left effusion. Persistent moderate right effusion. Electronically Signed: Selene Caro MD at 13:26 EST Tel , Service support , Chest CTA 09/13/18 12:46 IMPRESSION: Findings are positive for bilateral pulmonary embolism. Large left effusion. Large right effusion. Lymphadenopathy. Abdominal ascites. Focal density in T12 focal sclerotic density vertebral body T10 suspicious for osteoblastic metastasis. N.B. : The above information has been verbally conveyed by Selene Caro MD to Christian Lopez [phone], on 09/13/2018 14:31:10 (ET). Electronically Signed: Selene Caro MD at 14:20 EST Tel , Service support , ADDENDUM: 09/13/18 1438 Assessment/Plan RECOMMENDATIONS: 1. Continue AVAPS until thoracentesis 2. Hold heparin drip to facilitate thoracentesis 3. Reassess post procedure for BiPAP requirements 4. Await biopsy results 5. Reinitiate heparin drip following thoracentesis if no complications 6. Send pleural fluid for flow cytometry IMPRESSIONS: 1. Acute hypoxic respiratory failure secondary to bilateral pleural effu sions and PE High clinical suspicion for underlying malignancy, but to my knowledge this has not been verified by multiple biopsies at this time. Patient does have significant lymphadenopathy noted. Pleural fluid will be sent for flow cytometry. Patient does have a groin lymph node that is currently pending pathologic review. Patient is currently on AVAPS and tolerating well. Will need to reassess following thoracentesis if this is still required. Cannot exclude the need for a right-sided thoracentesis tomorrow, so would continue with heparin drip overnight. Clinical suspicion the patient will require Lovenox therapy on discharge given probable malignant trigger. 2. Probable malignancy Patient is wishing to be aggressive at this time until a diagnosis can be made. If prognosis is poor, cannot exclude palliative measures moving forward. Patient is on a heparin drip at this time to facilitate procedures if necessary. Will call down to pathology to see if lymph node has been evaluated. 3. Advanced age/lack of primary care/cachexia/hypernatremia/hyperchloremia Complicates care, management, recovery and prognosis. Hypernatremia and hyperchloremia are likely secondary to fluid resuscitation. We will KVO IV fluids. TIME: 33 minutes of critical care time spent addressing patient's acute hypoxic respiratory failure, pulmonary embolism, review of all data and collaboration with care team (8 AM to 10 AM) Code Visit 9xxxx: [id number] Critical care first hour
--- NOTE | 2018-09-14 10:26 | CASEMGMT ---
AVE ACOSTA INITIAL ASSESSMENT Re-admission note: Prior admission to [facility] 08/31/18 through 09/02/18. Admitted with Pleural effusions, suggestive of malignancy. Had thoracentesis. Discharged home on oxygen and to F/U with PCP and pulmonology. 09/13/18: Re-admitted with Bilat PE's and resp failure. D/C PLAN: Home w/ possible HHC. Face to Face with patient for initial transition planning/care coordination assessment. AVE ACOSTA introduced self and role at [facility]. Pt resting in bed. Agreeable to assessment and all questions answered appropriatley. and daughter, Sandra, @ bedside. Daughter, Shweta, also returned to room during the assessment and provided some information. Care providers, pharmacy, and demographics verified. PCP: Dara. Specialists: Radha Norman [place]ckarus Preferred [facility]acy[facility]. Insurance: [facility], [employer] Prescription Benefit: Pt's thinks that pt has prescription coverage under [employer], but he is not certain. Encouraged pt and to inquire/look into this. Also encouraged them to look into other prescription coverage if [employer] does not provide prescription coverage. Living Will/HPOA: States does not have LW or HCPOA . Was given information on AD the last admission, but pt states she does not remember seeing them. Interested in more information on this and with talking to JACE. Call placed to JACE Tate, and informed her pt would like to talk with her. Provided information on advanced directives and given Social Service rac card. LNOK: and 2 daughters, Shweta and Sandra Living Arrangements: Lives with her in a 2-story home with bed and bath on 1st floor. 2 steps to enter. Transportation: Pt was driving up until recently. Has been becoming more weak, so has not been driving lately. drives. DME: Has a pulse ox and BP cuff at home. Wears O2 @ home at 2 L/M that she gets through [place]. *Will need Home O2 qualification testing done w/in 24 hrs of discharge to determine home O2 needs. Ambulated without assistive device @ home prior to admission, but has been becoming more weak. *States she is hoping she will get strong enough to return home without a walker, but states she may need one. Daughter states she may also need a shower chair. *Informed them that shower chair will not be covered under Medicare but can find them at some Drug Stores or thrift shops. HHC/SNF: Has never used HHC services before or been to a SNF. Pt is hoping she will be able to get strong enough to be able to return home. Is agreeable to HH for therapy if she would need it. She wants to wait and see how she progresses along. States has no preference of HHC agency. CM to follow for any further discharge planning needs that may arise. PT/OT nargis on hold currently d/t PE's. Vidhya POSADASN RN CM
--- NOTE | 2018-09-14 14:50 | CHAPLAIN ---
Type of Pastoral Visit _x__ Initial Visit ___ Follow-up Visit ___ On-call Visit ___ General Patient Visit ___ Spiritual Assessment ___ Family Conference ___ Bereavement ___ Rapid Response ___ Code Blue ___ Other (describe below) Pastoral Care Referral From _x__ Patient _x__ Family _x__ Nurse ___ Physician ___ Character Artist ___ Business Office Assistant ___ Other (describe below) Sacrament/Intervention _x__ Active listening ___ Anointing ___ Mu-Ism ___ Bereavement ___ Communion _x__ Victoria exploration ___ _x__ Life review _x__ Prayer ___ Reconciliation ___ Sacrament of Sick _x__ Supportive presence ___ Wedding ___ Other (describe below) Pastoral Comments patient has a deep victoria and welcomes spiritual care
--- NOTE | 2018-09-14 15:08 | RAD_ITS ---
STUDY: X-RAY CHEST REASON FOR EXAM: Female, 73 years old. The patient is status post left thoracentesis. TECHNIQUE: AP inspiration and expiration views. COMPARISON: Comparison is made with prior study dated September 13, 2018. FINDINGS: The patient is status post left thoracentesis. There is no evidence of pneumothorax. Small residual bilateral pleural effusions with underlying atelectasis. RAD/Chest Insp/Exp 2 View IMPRESSION: Status post left thoracentesis. There is no evidence of pneumothorax. Small bilateral pleural effusions with underlying atelectasis. Electronically Signed: Chris Alfaro MD at 8:33 EST Tel [phone], Service support ,
[2018-09-14 15:39] LABS: Cytology, Body Fluid / CSF SEE PATHOLOGY REPORT
--- NOTE | 2018-09-14 16:31 | CON.PCM_ITS ---
- Problem List (1) Generalized lymphadenopathy Status: Acute (2) Pleural effusion, bilateral Status: Acute (3) DVT, bilateral lower limbs Status: Acute (4) Pulmonary embolism Status: Acute (5) Weight loss, non-intentional Status: Chronic Consult Referring Physician: Hospitalist Consult Results: Generalized lymphadenopathy, suspect lymphoma Subjective Date of Service:: 09/14/18 Chief Complaint: Dyspnea History of Present Illness: 73-year-old female admitted with acute bilateral pulmonary embolism and bilateral lower extremities DVT. Her medical history is notable for 6-12 months fluctuating painlessly enlarging lymph nodes in her axillae and groins. Over the past 6 months she has noted steady weight loss going from size 6-8 to current size 4. She did not seek medical attention until late August 2018 when she experienced increasing dyspnea. August 31, 2018: Chest x-ray revealed bilateral pleural effusions. September 01, 2018: Thoracocentesis 1070 mL of macy-colored fluid was drained, fluid cytology negative for malignancy. September 10, 2018: CT abdomen and pelvis: MPRESSION: 1. Large left-sided pleural effusion and moderate sized right-sided effusion. 2. Bilateral lower lobe atelectasis. 3. 1.4 cm probable cyst of the posterior right hepatic lobe. 4. Mild right hydronephrosis. 5. Severe sigmoid diverticulosis. 6. Extensive retroperitoneal, deep pelvic/iliac chain, and bilateral inguinal adenopathy. 7. Small amount of pelvic ascites. 8. Increased subcutaneous fatty stranding suggestive of anasarca. 9. Sclerotic focus of the T10 body which may represent metastatic lesion. September 11, 2018: Inguinal lymph node biopsy, pathology pending. September 13, 2018: Admitted with increasing dyspnea and CTA showed evidence of bilateral pulmonary embolism and Doppler ultrasound both lower extremities show evidence for bilateral DVTs. Past Medical History: Chronic Problems (Last Updated 09/13/18 @ 14:06 by Kamryn Prince MD) Weight loss, non-intentional (Chronic) Pelvic mass in female (Chronic) IBS (irritable bowel syndrome) (Chronic) controlled with diet History of hyperthyroidism (Chronic) Past Medical/Surgical History: Past Medical History - Most Recent Inpatient Visit Past Medical History Start: 09/13/18 15:14 Text: Status: Complete Freq: ONCE Protocol: Document 09/13/18 16:48 ALLEN (Rec: 09/13/18 16:53 [facility] [id number]) BMI Required to complete PMH What is Patient's BMI 20.9 Neurologic Medical History Hx Stroke/TIA No Hx Dementia/Alzheimer's No Hx Parkinson's Disease No Hx Seizures No Hx Multiple Sclerosis No Hx Migraines No Cardiac Medical History VTE Present on Admission No Hx of Deep Vein Thrombosis/VTE/PE Yes: this admission Hx Hypertension No Hx Chest Pain/Angina No Hx Heart Attack No Hx Cardiac Surgery/Stents/Etc. No Hx Heart Failure No Hx Pacemaker/AICD No Hx Irregular Heartbeat and/or Afib No Hx Anticoagulant Therapy No Query Text:(Coumadin, Aspirin, Plavix, Xarelto, etc.) Hx Pain in Legs when Walking/Leg Cramps Yes Respiratory Medical History Hx COPD No Hx Emphysema No Hx Smoking No Smoking Status Never smoker Hx Smoking Exposure No Hx Tobacco Use in last 12 months No Hx of Pipe Smoking No Hx of Cigar Smoking No Hx Sleep Apnea No Do you snore loudly (louder than talking Yes or can be heard through closed doors)? Do you often feel tired/ fatigued/ No sleepy during daytime? Has anyone observed you stop breathing Yes during sleep? STOP Results Positive GI Medical History Hx Ulcer No Hx Hepatitis No Hx Cirrhosis No Hx GI Bleed No Hx Unplanned Weight Loss Yes: recent dx with cancer Genitourinary Medical History Indwelling Catheter in Place on Arrival/ No Admission Hx Renal Disease No Hx Dialysis No Musculoskeletal History Hx Arthritis No Hx Rheumatoid Arthritis No Endocrine Medical History Hx Diabetes No Hx Thyroid Disease Yes: OVER ACTIVE X2 1998 Hematologic Medical History Hx of Blood Transfusion No Hx of Transfusion in last 3 Months No Ever experience any problems with No transfusion(s)? 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 No Methicillin Resistant Staphylococcus aureus Screening Active MRSA No Risk for Readmission Number of Risk Factors 7 At Risk for Readmission Patient is At Risk For Readmission Patient is eligible for Call Back Y Past Medical History (Last Updated 09/13/18 @ 14:06 by Kamryn Prince MD) IBS (irritable bowel syndrome) (Chronic) History of hyperthyroidism (Chronic) Past Surgical History (Last Reviewed 09/11/18 @ 13:26 by Agnes Denis) History of lumpectomy (Acute) History of thoracentesis (Acute) Maternal Family History: Family History (Last Reviewed 09/11/18 @ 13:26 by Agnes Denis) Mother Hypertension Cancer Diabetes Father Diabetes Kidney disease Hypertension Hyperlipemia Sister Breast cancer Family History: Diabetes Paternal Family History: Family History (Last Reviewed 09/11/18 @ 13:26 by Agnes Denis) Mother Hypertension Cancer Diabetes Father Diabetes Kidney disease Hypertension Hyperlipemia Sister Breast cancer Family History: Heart Disease - Social History Lives: Spouse/ Significant Other Smoking Status: Never smoker Alcohol: None Drugs: None Allergies/Adverse Reactions: Allergy/AdvReac Type Severity Reaction Status Date / Time No Known Allergies Allergy Verified 09/13/18 11:54 Review of Systems Constitutional:: Reports: Weakness, Fatigue, Weight loss, Appetite change. Denies: Fever, Sweats, Chills Cardiovascular:: Reports: Ankle swelling, Dyspnea on exertion, Peripheral edema, Shortness of breath. Denies: Chest pain, Palpitations, Orthopnea, PND Respiratory: Reports: Shortness of Breath, Shortness of breath at rest, Shortness of breath upon exertion. Denies: Cough, Hemoptysis, Wheezing Gastrointestinal:: Denies: Abdominal pain, Nausea, Vomiting, Diarrhea, Con stipation, Hematochezia Genitourinary: Denies: Dysuria, Hematuria, 15, Flank pain Musculoskeletal:: Denies: Back pain, Myalgia, Arthralgia Skin: Denies: Rash, Skin Changes, Wounds Neurological:: Denies: Headache, Dizziness, Visual changes, Tinnitus, Hearing loss Psychiatric: Denies: Anxiety, Depression, Homicidal Ideations, Suicidal Ideations Comment: She is aware of painless enlargement of lymph nodes in her neck, axilla and groins Vital Signs Height 5 ft 3 in Weight: 53.8 kg Weight in Pounds 118.6 lbs Pulse Ox 95 Temperature 98.6 F Pulse Rate [4] 97 Pulse Rate [3] 100 Pulse Rate [2] 106 Pulse Rate [1 (Initial 102 Baseline)] Pulse Rate 92 Respiratory Rate [4] 18 Respiratory Rate [3] 18 Respiratory Rate [2] 18 Respiratory Rate [1 (Initial 18 Baseline)] Respiratory Rate 27 Blood Pressure [BP] 125/69 Blood Pressure [4] 125/69 Blood Pressure [3] 136/83 Blood Pressure [2] 153/96 Blood Pressure [1 (Initial 137/77 Baseline)] Blood Pressure 123/92 Blood Pressure Position [BP] Semi-Fowlers Blood Pressure Position Semi-Fowlers - Physical Exam General: Alert, Oriented x3, No apparent distress, - - Thin built, ECOG 3, on oxygen HEENT: Atraumatic, PERRLA, EOMI, Normocephalic Oropharynx:: Dry mucosa Neck:: Supple, Trachea midline. Negative for: JVD, bilateral Cardiac:: Regular rate, Regular rhythm, Normal S1, Normal S2. Negative for: Murmur Lungs: Clear to auscultation, Diminished - Bilateral consistent with bilateral pleural effusions, Excusion symmetrical. Negative for: Rhonchi, Wheezes Abdomen:: Soft, Non-tender, Non-distended. Negative for: Hepatosplenomegaly Extremities:: Negative for: Cyanosis, Edema Neurological: Neuro grossly intact Skin:: Lesions - Left axilla with a 3 cm sub-cutaneous pedunculated mass.. Negative for: Rash, Petechiae, Ecchymosis Psychiatric:: Appropriate affect, Euthymic Lymphatics:: Cervical lymphadenopathy, Axillary lymphadenopathy, Inguinal lymphadenopathy Laboratory Data: Laboratory Tests 09/14/18 09/14/18 09/14/18 Range/Units 04:05 04:05 04:05 WBC 6.6 (4.4-11.0) K/mm3 RBC 4.44 (4.2-5.4) M/mm3 Hgb 12.3 (12.0-15.0) g/dl Hct 38.0 (37-47) % MCV 85.6 (81-99) fL MCH 27.7 (27.0-32.0) pg MCHC 32.4 (32-36) g/gl RDW 16.5 H (11.6-14.6) % RDW Differential 51.6 H (35.1-43.9) fl Plt Count 264 (150-450) K/mm3 MPV 9.5 (6.2-12.0) fl Immature Gran % (Auto) 0.200 (0.0-0.9) % Neut % (Auto) 77.4 H (47-70) % Lymph % (Auto) 10.5 L (19-41) % [place] % (Auto) 11.4 H (0-10) % Eos % (Auto) 0.3 (0-5) % Baso % (Auto) 0.2 (0-1) % Absolute Neuts (auto) 5.1 (2.0-7.7) X10^3/uL Absolute Lymphs (auto) 0.70 L (0.83-4.51) X10^3/ul Total Counted Not Reportable PT 15.5 H (11.7-14.9) SECONDS INR 1.2 APTT (24.1-36.2) Seconds Sodium 146 H (136-145) mmol/L Potassium 3.8 (3.5-5.1) mmol/L Chloride 111 H (98-107) mmol/L Carbon Dioxide 27.0 (21.0-32.0) mmol/L Anion Gap 8 (5-15) BUN 17 (7-18) mg/dL Creatinine 0.76 (0.55-1.02) mg/dL Estim Creat Clear Calc 41.45 ml/min Est GFR (MDRD) Af Amer 96 (>60) mL/min Est GFR (MDRD) Non-Af 79 (>60) mL/min BUN/Creatinine Ratio 22.4 H (10-20) RATIO Glucose 130 H (74-106) mg/dL Calcium 8.0 L (8.5-10.1) mg/dL Troponin I (<0.045) ng/mL 09/14/18 09/13/18 09/13/18 Range/Units 02:20 22:10 19:45 WBC (4.4-11.0) K/mm3 RBC (4.2-5.4) M/mm3 Hgb (12.0-15.0) g/dl Hct (37-47) % MCV (81-99) fL MCH (27.0-32.0) pg MCHC (32-36) g/gl RDW (11.6-14.6) % RDW Differential (35.1-43.9) fl Plt Count (150-450) K/mm3 MPV (6.2-12.0) fl Immature Gran % (Auto) (0.0-0.9) % Neut % (Auto) (47-70) % Lymph % (Auto) (19-41) % [place] % (Auto) (0-10) % Eos % (Auto) (0-5) % Baso % (Auto) (0-1) % Absolute Neuts (auto) (2.0-7.7) X10^3/uL Absolute Lymphs (auto) (0.83-4.51) X10^3/ul Total Counted PT (11.7-14.9) SECONDS INR APTT 61.2 H 89.3 H (24.1-36.2) Seconds Sodium (136-145) mmol/L Potassium (3.5-5.1) mmol/L Chloride (98-107) mmol/L Carbon Dioxide (21.0-32.0) mmol/L Anion Gap (5-15) BUN (7-18) mg/dL Creatinine (0.55-1.02) mg/dL Estim Creat Clear Calc ml/min Est GFR (MDRD) Af Amer (>60) mL/min Est GFR (MDRD) Non-Af (>60) mL/min BUN/Creatinine Ratio (10-20) RATIO Glucose (74-106) mg/dL Calcium (8.5-10.1) mg/dL Troponin I 0.284 H (<0.045) ng/mL 09/13/18 09/13/18 Range/Units 19:45 16:20 WBC (4.4-11.0) K/mm3 RBC (4.2-5.4) M/mm3 Hgb (12.0-15.0) g/dl Hct (37-47) % MCV (81-99) fL MCH (27.0-32.0) pg MCHC (32-36) g/gl RDW (11.6-14.6) % RDW Differential (35.1-43.9) fl Plt Count (150-450) K/mm3 MPV (6.2-12.0) fl Immature Gran % (Auto) (0.0-0.9) % Neut % (Auto) (47-70) % Lymph % (Auto) (19-41) % [place] % (Auto) (0-10) % Eos % (Auto) (0-5) % Baso % (Auto) (0-1) % Absolute Neuts (auto) (2.0-7.7) X10^3/uL Absolute Lymphs (auto) (0.83-4.51) X10^3/ul Total Counted PT (11.7-14.9) SECONDS INR APTT (24.1-36.2) Seconds Sodium (136-145) mmol/L Potassium (3.5-5.1) mmol/L Chloride (98-107) mmol/L Carbon Dioxide (21.0-32.0) mmol/L Anion Gap (5-15) BUN (7-18) mg/dL Creatinine (0.55-1.02) mg/dL Estim Creat Clear Calc ml/min Est GFR (MDRD) Af Amer (>60) mL/min Est GFR (MDRD) Non-Af (>60) mL/min BUN/Creatinine Ratio (10-20) RATIO Glucose (74-106) mg/dL Calcium (8.5-10.1) mg/dL Troponin I 0.263 H 0.291 H (<0.045) ng/mL Diagnostic Data: Diagnostic Data Chest CTA 09/13/18 12:46 IMPRESSION: Findings are positive for bilateral pulmonary embolism. Large left effusion. Large right effusion. Lymphadenopathy. Abdominal ascites. Focal density in T12 focal sclerotic density vertebral body T10 suspicious for osteoblastic metastasis. N.B. : The above information has been verbally conveyed by Selene Crao MD to Christian Lopez [phone], on 09/13/2018 14:31:10 (ET). Electronically Signed: Selene Caro MD at 14:20 EST Tel , Service support , ADDENDUM: 09/13/18 1438 Assessment and Plan 73-year-old female with: 1. Bilateral pulmonary embolism and bilateral lower extremities DVT most likely secondary to malignancy induced hypercoagulability. Advised systemic anticoagulation. Duration of anticoagulation to be determined later. 2. Generalized lymphadenopathy and anasarca most likely lymphoma, less likely metastatic cancer. Biopsy of right groin was done on September 11, 2018. Pathology is pending. Specific therapeutic recommendations await final pathology. 3. Rapidly recurring bilateral pleural effusions with a negative cytology September 01, 2018 suspect secondary to lymphatic obstruction. Patient had a second therapeutic thoracocentesis today September 14, 2018. Patient was seen with multiple family members including her and 2 daughters, impression and plan discussed Medications: Medications Added to Medication List This Visit Category Date Time Status [facility] 09/14/18 18:00 Ordered 120 ml PO 4X/DAY Primary Care Provider: Mikey Diamond MD Referring Provider: Himanshu Duran
[2018-09-14 17:06] LABS: International Normalized Ratio 1.2; Prothrombin Time (Protime)PT. 14.8 SECONDS (11.7-14.9)
[2018-09-14 17:07] LABS: Partial Thromboplast Time 30.9 Seconds (24.1-36.2)
[2018-09-14] MEDS: Acetaminophen 325 MG Tablet 650 MG PO (20:09)
[2018-09-14 22:36] LABS: Partial Thromboplast Time 51.7 Seconds (24.1-36.2)
[2018-09-14] MEDS: Heparin Injection (Vial) 5,000 UNIT/ML VIAL IV (23:12)
[2018-09-15] VITALS (21 sets, daily range): BP systolic 94–139; BP diastolic 51–76; PULSE 78–112; RESP 17–25; TEMP 36.7–37.2; O2SAT 92–97
[2018-09-15 04:22] LABS: Absolute Lymphocyte Count 0.64 X10^3/ul (0.83-4.51); Absolute Neutrophil Count 4.2 X10^3/uL (2.0-7.7); Basophil# 0.01 X10^3/uL; Basophil% 0.2 % (0-1); Eosinophil# 0.06 X10^3/uL; Eosinophils% 1.1 % (0-5); Hematocrit 32.9 % (37-47); Hemoglobin 10.6 g/dl (12.0-15.0); Lymphocyte # 0.64 X10^3/ul (4.0); Lymphocyte % 11.6 % (19-41); Mean Corp Hgb Conc 32.2 g/gl (32-36); Mean Corpuscular Hgb 28.2 pg (27.0-32.0); Mean Corpuscular Volume 87.5 fL (81-99); Monocyte# 0.56 X10^3/uL; Monocyte% 10.1 % (0-10); Neutrophil # 4.24 X10^3/uL (2.7-7.7); Neutrophil % 76.8 % (47-70); Platelet Count 240 K/mm3 (150-450); RBC Distribution Width CV 16.6 % (11.6-14.6); RBC Distribution Width SD 51.6 fl (35.1-43.9); Red Blood Count 3.76 M/mm3 (4.2-5.4); White Blood Count 5.5 K/mm3 (4.4-11.0)
[2018-09-15 04:23] LABS: POSITIVE COUNT NO; POSITIVE DIFFERENTIAL NO; POSITIVE MORPHOLOGY NO
[2018-09-15 04:32] LABS: Anion Gap 8 (5-15); BUN 22 mg/dL (7-18); BUN/Creat Ratio 30.4 RATIO (10-20); Calcium,Total 7.8 mg/dL (8.5-10.1); Chloride 113 mmol/L (98-107); Creatinine, Serum 0.72 mg/dL (0.55-1.02); EST Glomerular Filtration Rate 84 mL/min (>60); Est Glom Filt Rate - Afr Amer 101 mL/min (>60); Estimated Creatinine Clearance 41.45 ml/min; Glucose 94 mg/dL (74-106); Potassium 3.8 mmol/L (3.5-5.1); Sodium Level 149 mmol/L (136-145)
[2018-09-15 04:33] LABS: Partial Thromboplast Time 111.4 Seconds (24.1-36.2)
[2018-09-15] MEDS: Ipratropium/Albuterol Sulfate 3 ML AMPUL.NEB INHALATION ×3 (06:46→18:55)
--- NOTE | 2018-09-15 07:10 | PCM.PN.INT ---
Subjective: Patient did well overnight. Patient is denying any pain at this time. Patient has been able to tolerate nasal cannula oxygen since thoracentesis and no BiPAP rescue has been required. Patient did have an elevated PTT, but no clinical leading has been reported. General: Alert, Oriented x3, Cooperative, No apparent distress, - - Cachectic. Speaking in full sentences. HEENT: Atraumatic, PERRLA, EOMI, Normocephalic, - - No scleral icterus or injection noted. Oral: Moist Mucosa, No Gingival or Mucosal Lesions/ Ulcerations Neck: Supple, No JVD, No Nodes, Trachea Midline Lungs: No rhonchi, No wheeze, Diminished - Bilateral, Rales - Left base Cardiovascular: Normal S1, Normal S2, Irregular Rate, Murmur, No rub noted, No Gallop Abdomen: Bowel Sounds Present, Soft, Non Tender, Non-Distended Extremities: No clubbing, No cyanosis, Capillary Refill Less than 3 Seconds Skin: - - No significant change compared to previous. Thoracentesis site is clean, dry and intact. Musculoskeletal: No Tenderness to Palpation of Joints or Extremities Lymphatic: No Cervical, Supraclavicular, or Inguinal Adenopathy Neurological: Cranial nerves II-XII grossly intact, Neuro grossly intact, Motor Exam 5/5 strength throughout Psych/Mental Status: Alert and oriented to time, place, person, mood and affect Vital Signs Temp Pulse Resp BP Pulse Ox 36.7 C 92 21 H 111/59 L 94 09/15/18 04:00 09/15/18 06:46 09/15/18 06:46 09/15/18 06:00 09/15/18 06:46 Oxygen Flow Rate (L/min) [4] 4 Oxygen Flow Rate (L/min) [3] 4 Oxygen Flow Rate (L/min) [2] 4 Oxygen Flow Rate (L/min) [1 ( 4 Initial Baseline)] Oxygen Flow Rate (L/min) 4 Oxygen Delivery Method [4] Nasal Cannula Oxygen Delivery Method [3] Nasal Cannula Oxygen Delivery Method [2] Nasal Cannula Oxygen Delivery Method [1 ( Nasal Cannula Initial Baseline)] Oxygen Delivery Method Nasal Cannula Weight: 51.2 kg Body Mass Index (BMI) 20.9 Intake and Output for Last 24 Hours 09/13/18 09/14/18 09/15/18 23:59 23:59 23:59 Intake Total 488.2 / 488.2 639.0 / 639.0 44.8 / 44.8 Output Total 425 / 425 500 / 500 180 / 180 Balance 63.2 / 63.2 139.0 / 139.0 -135.2 / -135.2 Labs (Last 48 Hours) 09/13/18 09/13/18 09/13/18 12:16 12:16 12:16 WBC 7.4 RBC 4.97 Hgb 13.6 Hct 42.4 MCV 85.3 MCH 27.4 MCHC 32.1 RDW 16.4 H RDW Differential 50.5 H Plt Count 285 MPV 9.8 Immature Gran % (Auto) Neut % (Auto) Lymph % (Auto) [place] % (Auto) Eos % (Auto) Baso % (Auto) Absolute Neuts (auto) Absolute Lymphs (auto) Total Counted PT 13.8 INR 1.1 APTT 29.8 Specimen Type Sample Site VBG pH VBG pO2 VBG O2 Sat (Calc) VBG O2 Content VBG Base Excess POC Mix VBG pCO2 Pt Tmp O2 Delivery Device Liter Flow Blood Gas Notified Whom Blood Gas Notified Time Sodium 144 Potassium 3.8 Chloride 109 H Carbon Dioxide 25.0 Anion Gap 10 BUN 17 Creatinine 0.75 Estim Creat Clear Calc 41.45 Est GFR (MDRD) Af Amer 98 Est GFR (MDRD) Non-Af 81 BUN/Creatinine Ratio 22.8 H Glucose 108 H Calcium 8.4 L Troponin I Miscellaneous Cytology 09/13/18 09/13/18 09/13/18 12:51 16:20 19:45 WBC RBC Hgb Hct MCV MCH MCHC RDW RDW Differential Plt Count MPV Immature Gran % (Auto) Neut % (Auto) Lymph % (Auto) [place] % (Auto) Eos % (Auto) Baso % (Auto) Absolute Neuts (auto) Absolute Lymphs (auto) Total Counted PT INR APTT Specimen Type JOSHUA Sample Site L Brachial VBG pH 7.52 H VBG pO2 41 H VBG O2 Sat (Calc) 83 H VBG O2 Content 24 VBG Base Excess 1 POC Mix VBG pCO2 Pt Tmp 28.6 L O2 Delivery Device Nasal Can Liter Flow 6.0 Blood Gas Notified Whom ED Blood Gas Notified Time 1250 Sodium Potassium Chloride Carbon Dioxide Anion Gap BUN Creatinine Estim Creat Clear Calc Est GFR (MDRD) Af Amer Est GFR (MDRD) Non-Af BUN/Creatinine Ratio Glucose Calcium Troponin I 0.291 H 0.263 H Miscellaneous Cytology 09/13/18 09/13/18 09/14/18 19:45 22:10 02:20 WBC RBC Hgb Hct MCV MCH MCHC RDW RDW Differential Plt Count MPV Immature Gran % (Auto) Neut % (Auto) Lymph % (Auto) [place] % (Auto) Eos % (Auto) Baso % (Auto) Absolute Neuts (auto) Absolute Lymphs (auto) Total Counted PT INR APTT 89.3 H 61.2 H Specimen Type Sample Site VBG pH VBG pO2 VBG O2 Sat (Calc) VBG O2 Content VBG Base Excess POC Mix VBG pCO2 Pt Tmp O2 Delivery Device Liter Flow Blood Gas Notified Whom Blood Gas Notified Time Sodium Potassium Chloride Carbon Dioxide Anion Gap BUN Creatinine Estim Creat Clear Calc Est GFR (MDRD) Af Amer Est GFR (MDRD) Non-Af BUN/Creatinine Ratio Glucose Calcium Troponin I 0.284 H Miscellaneous Cytology 09/14/18 09/14/18 09/14/18 04:05 04:05 04:05 WBC 6.6 RBC 4.44 Hgb 12.3 Hct 38.0 MCV 85.6 MCH 27.7 MCHC 32.4 RDW 16.5 H RDW Differential 51.6 H Plt Count 264 MPV 9.5 Immature Gran % (Auto) 0.200 Neut % (Auto) 77.4 H Lymph % (Auto) 10.5 L [place] % (Auto) 11.4 H Eos % (Auto) 0.3 Baso % (Auto) 0.2 Absolute Neuts (auto) 5.1 Absolute Lymphs (auto) 0.70 L Total Counted Not Reportable PT 15.5 H INR 1.2 APTT Specimen Type Sample Site VBG pH VBG pO2 VBG O2 Sat (Calc) VBG O2 Content VBG Base Excess POC Mix VBG pCO2 Pt Tmp O2 Delivery Device Liter Flow Blood Gas Notified Whom Blood Gas Notified Time Sodium 146 H Potassium 3.8 Chloride 111 H Carbon Dioxide 27.0 Anion Gap 8 BUN 17 Creatinine 0.76 Estim Creat Clear Calc 41.45 Est GFR (MDRD) Af Amer 96 Est GFR (MDRD) Non-Af 79 BUN/Creatinine Ratio 22.4 H Glucose 130 H Calcium 8.0 L Troponin I Miscellaneous Cytology 09/14/18 09/14/18 09/14/18 15:00 16:00 22:15 WBC RBC Hgb Hct MCV MCH MCHC RDW RDW Differential Plt Count MPV Immature Gran % (Auto) Neut % (Auto) Lymph % (Auto) [place] % (Auto) Eos % (Auto) Baso % (Auto) Absolute Neuts (auto) Absolute Lymphs (auto) Total Counted PT 14.8 INR 1.2 APTT 30.9 51.7 H Specimen Type Sample Site VBG pH VBG pO2 VBG O2 Sat (Calc) VBG O2 Content VBG Base Excess POC Mix VBG pCO2 Pt Tmp O2 Delivery Device Liter Flow Blood Gas Notified Whom Blood Gas Notified Time Sodium Potassium Chloride Carbon Dioxide Anion Gap BUN Creatinine Estim Creat Clear Calc Est GFR (MDRD) Af Amer Est GFR (MDRD) Non-Af BUN/Creatinine Ratio Glucose Calcium Troponin I Miscellaneous Cytology Pending 09/15/18 09/15/18 09/15/18 04:10 04:10 04:10 WBC 5.5 RBC 3.76 L Hgb 10.6 L Hct 32.9 L MCV 87.5 MCH 28.2 MCHC 32.2 RDW 16.6 H RDW Differential 51.6 H Plt Count 240 MPV 10.0 Immature Gran % (Auto) 0.200 Neut % (Auto) 76.8 H Lymph % (Auto) 11.6 L [place] % (Auto) 10.1 H Eos % (Auto) 1.1 Baso % (Auto) 0.2 Absolute Neuts (auto) 4.2 Absolute Lymphs (auto) 0.64 L Total Counted Not Reportable PT INR APTT 111.4 H* Specimen Type Sample Site VBG pH VBG pO2 VBG O2 Sat (Calc) VBG O2 Content VBG Base Excess POC Mix VBG pCO2 Pt Tmp O2 Delivery Device Liter Flow Blood Gas Notified Whom Blood Gas Notified Time Sodium 149 H Potassium 3.8 Chloride 113 H Carbon Dioxide 28.0 Anion Gap 8 BUN 22 H Creatinine 0.72 Estim Creat Clear Calc 41.45 Est GFR (MDRD) Af Amer 101 Est GFR (MDRD) Non-Af 84 BUN/Creatinine Ratio 30.4 H Glucose 94 Calcium 7.8 L Troponin I Miscellaneous Cytology Medical Necessity - Tobacco Use Smoking Status: Never smoker Assessment/Plan All Active Problems (Last Updated 09/13/18 @ 14:06 by Kamryn Prince MD) DVT, bilateral lower limbs (Acute) Pulmonary embolism (Acute) Generalized lymphadenopathy (Acute) Pleural effusion, bilateral (Acute) RECOMMENDATIONS: 1. Okay to transition to BiPAP as needed 2. Okay to continue with heparin drip 3. Await biopsy results 4. Increase activity as tolerated 5. Okay to transfer from the intensive care unit from my perspective 6. Wean oxygen as tolerated IMPRESSIONS: 1. Acute hypoxic respiratory failure secondary to bilateral pleural effusions and PE High clinical suspicion for underlying malignancy, but to my knowledge this has not been verified by multiple biopsies at this time. Patient does have significant lymphadenopathy noted. Patient with almost 1.5 L removed yesterday and significant improvement in oxygenation. Chest x-ray does not show any significant complications. Patient does have some residual fluid noted. Will likely not proceed with right-sided thoracentesis unless clinically indicated by oxygenation issues. Patient is hemodynamically stable enough to leave the intensive care unit from my perspective. 2. Probable malignancy Patient is wishing to be aggressive at this time until a diagnosis can be made. If prognosis is poor, cannot exclude palliative measures moving forward. Patient is on a heparin drip at this time to facilitate procedures if necessary. 3. Advanced age/lack of primary care/cachexia/hypernatremia/hyperchloremia Complicates care, management, recovery and prognosis. Hypernatremia and hyperchloremia are likely secondary to fluid resuscitation. We will KVO IV fluids. Code Visit Inpatient E&M: 83891 Subs Hosp L3
--- NOTE | 2018-09-15 08:22 | PN_ITS ---
Patient Problems: Active and Suspected Problems (Last Updated 09/13/18 @ 14:06 by Kamryn Prince MD) DVT, bilateral lower limbs (Acute) Pulmonary embolism (Acute) Generalized lymphadenopathy (Acute) Pleural effusion, bilateral (Acute) Subjective: Chief complaint: Follow-up after admission for acute bilateral multiple pulmonar y emboli, acute on chronic hypoxic respiratory failure and also found to have acute bilateral DVTs. Patient seen and examined. No acute events overnight. She has been on oxygen by nasal cannula after thoracentesis and no BiPAP required overnight. She did report improvement in her shortness of breath. She denied any pain. She is afebrile, slightly tachycardic, blood pressure stable, pulse ox is 95% on 4 L. - Physical Exam General: Alert, Oriented x3, Cooperative, - - Minimally short of breath. HEENT: Atraumatic, PERRLA, EOMI, Normocephalic Oral: Moist Mucosa, No Gingival or Mucosal Lesions/ Ulcerations Neck: Supple, No JVD, Negative Carotid Bruits, Trachea Midline, Thyroid Normal Size and Texture Lungs: No wheeze, No rales, Diminished, Rhonchi, Short of Breath, - - Markedly decreased breath sounds on both bases, scattered rhonchi. Cardiovascular: Regular rate, Regular Rhythm, Normal S1, Normal S2, PMI Normal, Tachycardic Abdomen: Bowel Sounds Present, Soft, Non Tender, Non-Distended, No Hepato- splenomegaly Extremities: No clubbing, No cyanosis, Edema Skin: No rashes, No breakdown Lymphatic: No Cervical, Supraclavicular, or Inguinal Adenopathy Neurological: Cranial nerves II-XII grossly intact, Neuro grossly intact Psych/Mental Status: Normal Affect, Appropriate, Alert and oriented to time, place, person, mood and affect Vital Signs Temp Pulse Resp BP Pulse Ox 98.1 F 104 H 21 H 111/59 L 94 09/15/18 04:00 09/15/18 07:16 09/15/18 06:46 09/15/18 06:00 09/15/18 06:46 Oxygen Flow Rate (L/min) [4] 4 Oxygen Flow Rate (L/min) [3] 4 Oxygen Flow Rate (L/min) [2] 4 Oxygen Flow Rate (L/min) [1 ( 4 Initial Baseline)] Oxygen Flow Rate (L/min) 4 Oxygen Delivery Method [4] Nasal Cannula Oxygen Delivery Method [3] Nasal Cannula Oxygen Delivery Method [2] Nasal Cannula Oxygen Delivery Method [1 ( Nasal Cannula Initial Baseline)] Oxygen Delivery Method Nasal Cannula Weight: 112 lb 14.027 oz Body Mass Index (BMI) 20.9 Intake and Output for Last 24 Hours 09/13/18 09/14/18 09/15/18 23:59 23:59 23:59 Intake Total 488.2 / 488.2 639.0 / 639.0 44.8 / 44.8 Output Total 425 / 425 500 / 500 180 / 180 Balance 63.2 / 63.2 139.0 / 139.0 -135.2 / -135.2 Laboratory Tests Past 24 Hrs 09/14/18 09/14/18 09/14/18 15:00 16:00 22:15 WBC RBC Hgb Hct MCV MCH MCHC RDW RDW Differential Plt Count MPV Immature Gran % (Auto) Neut % (Auto) Lymph % (Auto) [place] % (Auto) Eos % (Auto) Baso % (Auto) Absolute Neuts (auto) Absolute Lymphs (auto) Total Counted PT 14.8 INR 1.2 APTT 30.9 51.7 H Sodium Potassium Chloride Carbon Dioxide Anion Gap BUN Creatinine Estim Creat Clear Calc Est GFR (MDRD) Af Amer Est GFR (MDRD) Non-Af BUN/Creatinine Ratio Glucose Calcium Miscellaneous Cytology Pending 09/15/18 09/15/18 09/15/18 04:10 04:10 04:10 WBC 5.5 RBC 3.76 L Hgb 10.6 L Hct 32.9 L MCV 87.5 MCH 28.2 MCHC 32.2 RDW 16.6 H RDW Differential 51.6 H Plt Count 240 MPV 10.0 Immature Gran % (Auto) 0.200 Neut % (Auto) 76.8 H Lymph % (Auto) 11.6 L [place] % (Auto) 10.1 H Eos % (Auto) 1.1 Baso % (Auto) 0.2 Absolute Neuts (auto) 4.2 Absolute Lymphs (auto) 0.64 L Total Counted Not Reportable PT INR APTT 111.4 H* Sodium 149 H Potassium 3.8 Chloride 113 H Carbon Dioxide 28.0 Anion Gap 8 BUN 22 H Creatinine 0.72 Estim Creat Clear Calc 41.45 Est GFR (MDRD) Af Amer 101 Est GFR (MDRD) Non-Af 84 BUN/Creatinine Ratio 30.4 H Glucose 94 Calcium 7.8 L Miscellaneous Cytology Medical Necessity - Tobacco Use Smoking Status: Never smoker Assessment/Plan All Active Problems (Last Updated 09/13/18 @ 14:06 by Kamryn Prince MD) DVT, bilateral lower limbs (Acute) Pulmonary embolism (Acute) Generalized lymphadenopathy (Acute) Pleural effusion, bilateral (Acute) This is a 73 years old female patient presented to the ED because of worsening shortness of breath, weakness and palpitation, found to have acute bilateral pulmonary emboli complicated by acute on chronic hypoxic respiratory failure. #1 acute bilateral pulmonary emboli: Remained on IV heparin drip. Respiratory status is getting better after thoracentesis, has been maintaining pulse ox on 4 L of oxygen, no more BiPAP required. She was found to have acute bilateral DVTs as well. She had 2D echocardiogram done on September 01, 2018 that revealed ejection fraction of 65%, small pericardial effusion, moderate pulmonary hypertension. Plan: Transfer to PCU, continue same treatment. #2 acute bilateral DVTs of the lower extremities: Venous Doppler revealed acute DVT of the right femoral, popliteal, tibioperoneal trunk, gastrocnemius, posterior tibial, peroneal and soleal veins as well as left popliteal, gastrocnemius and soleus veins. She is on IV heparin drip as above. #3 acute on chronic hypoxic respiratory failure: Multifactorial secondary to bilateral pulmonary emboli as well as pleural effusions. Status post left thoracentesis, 1500 cc of fluids taken out. Patient has been maintaining pulse ox on oxygen by nasal cannula. No bilateral groin overnight. Plan as above. #4 bilateral pleural effusion: Status post repeat left thoracentesis that was done yesterday. Pleural fluid cytology is pending. During the last admission, she underwent left thoracentesis, found to have lymphocytic exudative effusion that was negative for malignant cells. #5 generalized lymphadenopathy: Status post right inguinal lymph node biopsy that was done on September 11, 2018, histopathology report is still pending. 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 She had a CT scan abdomen and pelvis done on September 10, 2018, results reviewed as above. Oncology on the case. #6 history of hyperthyroidism: Currently not on treatment. Her TSH was normal at 1.70 on August 31, 2018. #7 irritable bowel syndrome: Diet controlled, stable. She is on clear liquids. #8 DVT prophylaxis: She is on IV heparin drip. This note was generated with [employer] software. It may contain incorrect words, spelling, and punctuation that were not noted in checking the note before signing. Code Visit Inpatient E&M: 79916 Subs Hosp L2
[2018-09-15 10:55] LABS: Partial Thromboplast Time 33.5 Seconds (24.1-36.2)
[2018-09-15] MEDS: Heparin Injection (Vial) 5,000 UNIT/ML VIAL IV (11:45)
[2018-09-15] MEDS: 0.9% NaCl Peripheral Flush Adult/Peds IV (11:46)
--- NOTE | 2018-09-15 21:04 | CPS ---
pt refused BiPAP
[2018-09-15] MEDS: Acetaminophen 325 MG Tablet 650 MG PO (22:07)
[2018-09-16] VITALS (15 sets, daily range): BP systolic 105–140; BP diastolic 47–75; PULSE 86–106; RESP 16–20; TEMP 36.4–36.8; O2SAT 91–96
[2018-09-16 00:46] LABS: Partial Thromboplast Time 62.3 Seconds (24.1-36.2)
[2018-09-16 05:33] LABS: Partial Thromboplast Time 62.7 Seconds (24.1-36.2)
[2018-09-16] MEDS: Ipratropium/Albuterol Sulfate 3 ML AMPUL.NEB INHALATION ×3 (06:44→18:51)
--- NOTE | 2018-09-16 07:51 | PCM.PROGNOTE ---
Patient Problems: Active and Suspected Problems (Last Updated 09/13/18 @ 14:06 by Kamryn Prince MD) DVT, bilateral lower limbs (Acute) Pulmonary embolism (Acute) Generalized lymphadenopathy (Acute) Pleural effusion, bilateral (Acute) Subjective: Chief complaint: Follow-up after admission for acute bilateral multiple pulmonary emboli, acute on chronic hypoxic respiratory failure and also found to have acute bilateral DVTs. Patient seen and examined. No acute events overnight. She reported continued slow improvement of her shortness of breath. Denied cough or sputum production. No chest pain or palpitation. She has been maintaining her pulse ox at 96% on 4 L. Her other vital signs are stable. - Physical Exam General: Alert, Oriented x3, Cooperative, No apparent distress HEENT: Atraumatic, PERRLA, EOMI, Normocephalic Oral: Moist Mucosa, No Gingival or Mucosal Lesions/ Ulcerations Neck: Supple, No JVD, Negative Carotid Bruits, Trachea Midline, Thyroid Normal Size and Texture Lungs: No wheeze, No rales, Diminished, Rhonchi, - - Decreased breath sounds at the bases, scattered rhonchi, Cardiovascular: Regular rate, Regular Rhythm, Normal S1, Normal S2, PMI Normal Abdomen: Bowel Sounds Present, Soft, Non Tender, Non-Distended, No Hepato-splenomegaly Extremities: No clubbing, No cyanosis, Edema - ++ Edema. Skin: No rashes, No breakdown Lymphatic: No Cervical, Supraclavicular, or Inguinal Adenopathy Neurological: Cranial nerves II-XII grossly intact, Neuro grossly intact Psych/Mental Status: Normal Affect, Appropriate, Alert and oriented to time, place, person, mood and affect Vital Signs Temp Pulse Resp BP Pulse Ox 98.2 F 89 16 115/47 L 91 09/16/18 03:40 09/16/18 06:44 09/16/18 06:44 09/16/18 03:40 09/16/18 06:44 Oxygen Flow Rate (L/min) [4] 4 Oxygen Flow Rate (L/min) [3] 4 Oxygen Flow Rate (L/min) [2] 4 Oxygen Flow Rate (L/min) [1 ( 4 Initial Baseline)] Oxygen Flow Rate (L/min) 4 Oxygen Delivery Method [4] Nasal Cannula Oxygen Delivery Method [3] Nasal Cannula Oxygen Delivery Method [2] Nasal Cannula Oxygen Delivery Method [1 ( Nasal Cannula Initial Baseline)] Oxygen Delivery Method Nasal Cannula Weight: 113 lb 1.554 oz Body Mass Index (BMI) 20.9 Intake and Output for Last 24 Hours 09/14/18 09/15/18 09/16/18 23:59 23:59 23:59 Intake Total 639.0 / 639.0 534.8 / 534.8 380 / 380 Output Total 500 / 500 430 / 430 Balance 139.0 / 139.0 104.8 / 104.8 380 / 380 Laboratory Tests Past 24 Hrs 09/15/18 09/15/18 09/16/18 10:30 18:03 00:15 APTT 33.5 71.0 H 62.3 H 09/16/18 05:00 APTT 62.7 H Medical Necessity - Tobacco Use Smoking Status: Never smoker Assessment/Plan All Active Problems (Last Updated 09/13/18 @ 14:06 by Kamryn Prince MD) DVT, bilateral lower limbs (Acute) Pulmonary embolism (Acute) Generalized lymphadenopathy (Acute) Pleural effusion, bilateral (Acute) This is a 73 years old female patient presented to the ED because of worsening shortness of breath, weakness and palpitation, found to have acute bilateral pulmonary emboli complicated by acute on chronic hypoxic respiratory failure. #1 acute bilateral pulmonary emboli: Remained on IV heparin drip. Oxygenation improved, remains stable on 4 L of oxygen, pulse ox is 96%. She was found to have acute bilateral DVTs as well. She had 2D echocardiogram done on September 01, 2018 that revealed ejection fraction of 65%, small pericardial effusion, moderate pulmonary hypertension. Plan: Continue IV heparin drip for now, plan to start Eliquis or Xarelto daily today or tomorrow morning. #2 acute bilateral DVTs of the lower extremities: She is on IV heparin drip. Plan as above. Venous Doppler revealed acute DVT of the right femoral, popliteal, tibioperoneal trunk, gastrocnemius, posterior tibial, peroneal and soleal veins as well as left popliteal, gastrocnemius and soleus veins. #3 acute on chronic hypoxic respiratory failure: Multifactorial secondary to bilateral pulmonary emboli as well as pleural effusions. Status post left thoracentesis, 1500 cc of fluids taken out. She is stable on 4 L of oxygen, will try to wean her down. #4 bilateral pleural effusion: Status post repeat left thoracentesis that was done yesterday. Pleural fluid cytology is pending. During the last admission, she underwent left thoracentesis, found to have lymphocytic exudative effusion that was negative for malignant cells. #5 generalized lymphadenopathy: Status post right inguinal lymph node biopsy that was done on September 11, 2018, histopathology report is still pending. 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 According to oncology, the results of the lymph node biopsy might take up to 1 week because it was sent out for flow cytometry. #6 history of hyperthyroidism: Currently not on treatment. Her TSH was normal at 1.70 on August 31, 2018. #7 irritable bowel syndrome: Diet controlled, stable. She is on clear liquids. #8 DVT prophylaxis: She is on IV heparin drip. This note was generated with [employer] dictation software. It may contain incorrect words, spelling, and punctuation that were not noted in checking the note before signing. Code Visit Inpatient E&M: 33148 Subs Hosp L2
--- NOTE | 2018-09-16 07:56 | PN_ITS ---
Patient Problems: Active and Suspected Problems (Last Updated 09/13/18 @ 14:06 by Kamryn Prince MD) DVT, bilateral lower limbs (Acute) Pulmonary embolism (Acute) Generalized lymphadenopathy (Acute) Pleural effusion, bilateral (Acute) Subjective: Chief complaint: Follow-up after admission for acute bilateral multiple pulmonar y emboli, acute on chronic hypoxic respiratory failure and also found to have acute bilateral DVTs. Patient seen and examined. No acute events overnight. She reported continued slow improvement of her shortness of breath. Denied cough or sputum production. No chest pain or palpitation. She has been maintaining her pulse ox at 96% on 4 L. Her other vital signs are stable. - Physical Exam General: Alert, Oriented x3, Cooperative, No apparent distress HEENT: Atraumatic, PERRLA, EOMI, Normocephalic Oral: Moist Mucosa, No Gingival or Mucosal Lesions/ Ulcerations Neck: Supple, No JVD, Negative Carotid Bruits, Trachea Midline, Thyroid Normal Size and Texture Lungs: No wheeze, No rales, Diminished, Rhonchi, - - Decreased breath sounds at the bases, scattered rhonchi, Cardiovascular: Regular rate, Regular Rhythm, Normal S1, Normal S2, PMI Normal Abdomen: Bowel Sounds Present, Soft, Non Tender, Non-Distended, No Hepato- splenomegaly Extremities: No clubbing, No cyanosis, Edema - ++ Edema. Skin: No rashes, No breakdown Lymphatic: No Cervical, Supraclavicular, or Inguinal Adenopathy Neurological: Cranial nerves II-XII grossly intact, Neuro grossly intact Psych/Mental Status: Normal Affect, Appropriate, Alert and oriented to time, place, person, mood and affect Vital Signs Temp Pulse Resp BP Pulse Ox 98.2 F 89 16 115/47 L 91 09/16/18 03:40 09/16/18 06:44 09/16/18 06:44 09/16/18 03:40 09/16/18 06:44 Oxygen Flow Rate (L/min) [4] 4 Oxygen Flow Rate (L/min) [3] 4 Oxygen Flow Rate (L/min) [2] 4 Oxygen Flow Rate (L/min) [1 ( 4 Initial Baseline)] Oxygen Flow Rate (L/min) 4 Oxygen Delivery Method [4] Nasal Cannula Oxygen Delivery Method [3] Nasal Cannula Oxygen Delivery Method [2] Nasal Cannula Oxygen Delivery Method [1 ( Nasal Cannula Initial Baseline)] Oxygen Delivery Method Nasal Cannula Weight: 113 lb 1.554 oz Body Mass Index (BMI) 20.9 Intake and Output for Last 24 Hours 09/14/18 09/15/18 09/16/18 23:59 23:59 23:59 Intake Total 639.0 / 639.0 534.8 / 534.8 380 / 380 Output Total 500 / 500 430 / 430 Balance 139.0 / 139.0 104.8 / 104.8 380 / 380 Laboratory Tests Past 24 Hrs 09/15/18 09/15/18 09/16/18 10:30 18:03 00:15 APTT 33.5 71.0 H 62.3 H 09/16/18 05:00 APTT 62.7 H Medical Necessity - Tobacco Use Smoking Status: Never smoker Assessment/Plan All Active Problems (Last Updated 09/13/18 @ 14:06 by Kamryn Prince MD) DVT, bilateral lower limbs (Acute) Pulmonary embolism (Acute) Generalized lymphadenopathy (Acute) Pleural effusion, bilateral (Acute) This is a 73 years old female patient presented to the ED because of worsening shortness of breath, weakness and palpitation, found to have acute bilateral pulmonary emboli complicated by acute on chronic hypoxic respiratory failure. #1 acute bilateral pulmonary emboli: Remained on IV heparin drip. Oxygenation improved, remains stable on 4 L of oxygen, pulse ox is 96%. She was found to have acute bilateral DVTs as well. She had 2D echocardiogram done on September 01, 2018 that revealed ejection fraction of 65%, small pericardial effusion, moderate pulmonary hypertension. Plan: Continue IV heparin drip for now, plan to start Eliquis or Xarelto daily today or tomorrow morning. #2 acute bilateral DVTs of the lower extremities: She is on IV heparin drip. Plan as above. Venous Doppler revealed acute DVT of the right femoral, poplite al, tibioperoneal trunk, gastrocnemius, posterior tibial, peroneal and soleal veins as well as left popliteal, gastrocnemius and soleus veins. #3 acute on chronic hypoxic respiratory failure: Multifactorial secondary to bilateral pulmonary emboli as well as pleural effusions. Status post left thoracentesis, 1500 cc of fluids taken out. She is stable on 4 L of oxygen, will try to wean her down. #4 bilateral pleural effusion: Status post repeat left thoracentesis that was done yesterday. Pleural fluid cytology is pending. During the last admission, she underwent left thoracentesis, found to have lymphocytic exudative effusion that was negative for malignant cells. #5 generalized lymphadenopathy: Status post right inguinal lymph node biopsy that was done on September 11, 2018, histopathology report is still pending. 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 According to oncology, the results of the lymph node biopsy might take up to 1 week because it was sent out for flow cytometry. #6 history of hyperthyroidism: Currently not on treatment. Her TSH was normal at 1.70 on August 31, 2018. #7 irritable bowel syndrome: Diet controlled, stable. She is on clear liquids. #8 DVT prophylaxis: She is on IV heparin drip. This note was generated with [employer] software. It may contain incorrect words, spelling, and punctuation that were not noted in checking the note before signing. Code Visit Inpatient E&M: 25206 Subs Hosp L2
--- NOTE | 2018-09-16 07:56 | PCM.PROGNOTE ---
Patient Problems: Active and Suspected Problems (Last Updated 09/13/18 @ 14:06 by Kamryn Prince MD) DVT, bilateral lower limbs (Acute) Pulmonary embolism (Acute) Generalized lymphadenopathy (Acute) Pleural effusion, bilateral (Acute) Subjective: Patient transferred out of the intensive care unit yesterday. Patient feels that she is doing subjectively well compared to previous. Patient has remained on 4 L nasal cannula. Patient denies any chest pain, but does have dyspnea on exertion. Called pathology. Flow cytometry will likely be back today or tomorrow. - Physical Exam General: Alert, Oriented x3, Cooperative, No apparent distress, - - Cachectic. Appears older than stated age. No conversational dyspnea appreciated. HEENT: Atraumatic, PERRLA, EOMI, Normocephalic, - - No scleral icterus or injection noted. Oral: Moist Mucosa, No Gingival or Mucosal Lesions/ Ulcerations Neck: Supple, No JVD, No Nodes, Trachea Midline Lungs: No rhonchi, No wheeze, No rales, Diminished, - - Dullness to percussion right greater than left Cardiovascular: Regular rate, Regular Rhythm, Normal S1, Normal S2, Murmur, No rub noted, No Gallop Abdomen: Bowel Sounds Present, Soft, Non Tender, Non-Distended Extremities: No clubbing, No cyanosis, No edema, Capillary Refill Less than 3 Seconds Skin: No rashes, No breakdown Musculoskeletal: No Tenderness to Palpation of Joints or Extremities Lymphatic: No Cervical, Supraclavicular, or Inguinal Adenopathy Neurological: Cranial nerves II-XII grossly intact, Neuro grossly intact, Motor Exam 5/5 strength throughout Psych/Mental Status: Alert and oriented to time, place, person, mood and affect Vital Signs Temp Pulse Resp BP Pulse Ox 36.8 C 105 H 16 115/47 L 91 09/16/18 03:40 09/16/18 07:08 09/16/18 06:44 09/16/18 03:40 09/16/18 06:44 Oxygen Flow Rate (L/min) [4] 4 Oxygen Flow Rate (L/min) [3] 4 Oxygen Flow Rate (L/min) [2] 4 Oxygen Flow Rate (L/min) [1 ( 4 Initial Baseline)] Oxygen Flow Rate (L/min) 4 Oxygen Delivery Method [4] Nasal Cannula Oxygen Delivery Method [3] Nasal Cannula Oxygen Delivery Method [2] Nasal Cannula Oxygen Delivery Method [1 ( Nasal Cannula Initial Baseline)] Oxygen Delivery Method Nasal Cannula Weight: 51.3 kg Body Mass Index (BMI) 20.9 Intake and Output for Last 24 Hours 09/14/18 09/15/18 09/16/18 23:59 23:59 23:59 Intake Total 639.0 / 639.0 534.8 / 534.8 380 / 380 Output Total 500 / 500 430 / 430 Balance 139.0 / 139.0 104.8 / 104.8 380 / 380 Laboratory Tests Past 24 Hrs 09/15/18 09/15/18 09/16/18 10:30 18:03 00:15 APTT 33.5 71.0 H 62.3 H 09/16/18 05:00 APTT 62.7 H Clinical Impression(s) from Imaging Studies Thoracentesis Ultrasound 09/14/18 08:00 IMPRESSION: Ultrasound-guided left thoracentesis. Electronically Signed: Chris Alfaro MD at 15:36 EST Tel [phone], Service support , Chest X-Ray 09/14/18 15:08 IMPRESSION: Status post left thoracentesis. There is no evidence of pneumothorax. Small bilateral pleural effusions with underlying atelectasis. Electronically Signed: Chris Alfaro MD at 8:33 EST Tel [phone], Service support , Medical Necessity - Tobacco Use Smoking Status: Never smoker Assessment/Plan All Active Problems (Last Updated 09/13/18 @ 14:06 by Kamryn Prince MD) DVT, bilateral lower limbs (Acute) Pulmonary embolism (Acute) Generalized lymphadenopathy (Acute) Pleural effusion, bilateral (Acute) RECOMMENDATIONS: 1. Wean oxygen as tolerated 2. Okay to continue with heparin drip 3. Await biopsy results, possible information later today 4. Increase activity as tolerated 5. Possible port placement if lymphoma confirmed. IMPRESSIONS: 1. Acute hypoxic respiratory failure secondary to bilateral pleural effusions and PE High clinical suspicion for underlying malignancy, but to my knowledge this has not been verified by multiple biopsies at this time. Patient does have significant lymphadenopathy noted. Patient with almost 1.5 L removed earlier in hospitalization and significant improvement in oxygenation. Chest x-ray does not show any significant complications. Patient does have some residual fluid noted. Will likely not proceed with right-sided thoracentesis unless clinically indicated by oxygenation issues. She remains on a heparin drip secondary to possibility of needing port placement. No bleeding complications have been reported. Patient is being followed by oncology. 2. Probable malignancy Patient is wishing to be aggressive at this time until a diagnosis can be made. If prognosis is poor, cannot exclude palliative measures moving forward. Patient is on a heparin drip at this time to facilitate procedures if necessary. 3. Advanced age/lack of primary care/cachexia/hypernatremia/hyperchloremia Complicates care, management, recovery and prognosis. Hypernatremia and hyperchloremia are likely secondary to fluid resuscitation. We will KVO IV fluids. Code Visit Inpatient E&M: 00724 Subs Hosp L3
--- NOTE | 2018-09-16 07:59 | PN_ITS ---
Patient Problems: Active and Suspected Problems (Last Updated 09/13/18 @ 14:06 by Kamryn Prince MD) DVT, bilateral lower limbs (Acute) Pulmonary embolism (Acute) Generalized lymphadenopathy (Acute) Pleural effusion, bilateral (Acute) Subjective: Patient transferred out of the intensive care unit yesterday. Patient feels timmy t she is doing subjectively well compared to previous. Patient has remained on 4 L nasal cannula. Patient denies any chest pain, but does have dyspnea on exertion. Called pathology. Flow cytometry will likely be back today or tomorrow. - Physical Exam General: Alert, Oriented x3, Cooperative, No apparent distress, - - Cachectic. Appears older than stated age. No conversational dyspnea appreciated. HEENT: Atraumatic, PERRLA, EOMI, Normocephalic, - - No scleral icterus or injection noted. Oral: Moist Mucosa, No Gingival or Mucosal Lesions/ Ulcerations Neck: Supple, No JVD, No Nodes, Trachea Midline Lungs: No rhonchi, No wheeze, No rales, Diminished, - - Dullness to percussion right greater than left Cardiovascular: Regular rate, Regular Rhythm, Normal S1, Normal S2, Murmur, No rub noted, No Gallop Abdomen: Bowel Sounds Present, Soft, Non Tender, Non-Distended Extremities: No clubbing, No cyanosis, No edema, Capillary Refill Less than 3 Seconds Skin: No rashes, No breakdown Musculoskeletal: No Tenderness to Palpation of Joints or Extremities Lymphatic: No Cervical, Supraclavicular, or Inguinal Adenopathy Neurological: Cranial nerves II-XII grossly intact, Neuro grossly intact, Motor Exam 5/5 strength throughout Psych/Mental Status: Alert and oriented to time, place, person, mood and affect Vital Signs Temp Pulse Resp BP Pulse Ox 36.8 C 105 H 16 115/47 L 91 09/16/18 03:40 09/16/18 07:08 09/16/18 06:44 09/16/18 03:40 09/16/18 06:44 Oxygen Flow Rate (L/min) [4] 4 Oxygen Flow Rate (L/min) [3] 4 Oxygen Flow Rate (L/min) [2] 4 Oxygen Flow Rate (L/min) [1 ( 4 Initial Baseline)] Oxygen Flow Rate (L/min) 4 Oxygen Delivery Method [4] Nasal Cannula Oxygen Delivery Method [3] Nasal Cannula Oxygen Delivery Method [2] Nasal Cannula Oxygen Delivery Method [1 ( Nasal Cannula Initial Baseline)] Oxygen Delivery Method Nasal Cannula Weight: 51.3 kg Body Mass Index (BMI) 20.9 Intake and Output for Last 24 Hours 09/14/18 09/15/18 09/16/18 23:59 23:59 23:59 Intake Total 639.0 / 639.0 534.8 / 534.8 380 / 380 Output Total 500 / 500 430 / 430 Balance 139.0 / 139.0 104.8 / 104.8 380 / 380 Laboratory Tests Past 24 Hrs 09/15/18 09/15/18 09/16/18 10:30 18:03 00:15 APTT 33.5 71.0 H 62.3 H 09/16/18 05:00 APTT 62.7 H Clinical Impression(s) from Imaging Studies Thoracentesis Ultrasound 09/14/18 08:00 IMPRESSION: Ultrasound-guided left thoracentesis. Electronically Signed: Chris Alfaro MD at 15:36 EST Tel [phone], Service support , Chest X-Ray 09/14/18 15:08 IMPRESSION: Status post left thoracentesis. There is no evidence of pneumothorax. Small bilateral pleural effusions with underlying atelectasis. Electronically Signed: Chris Alfaro MD at 8:33 EST Tel [phone], Service support , Medical Necessity - Tobacco Use Smoking Status: Never smoker Assessment/Plan All Active Problems (Last Updated 09/13/18 @ 14:06 by Kamryn Prince MD) DVT, bilateral lower limbs (Acute) Pulmonary embolism (Acute) Generalized lymphadenopathy (Acute) Pleural effusion, bilateral (Acute) RECOMMENDATIONS: 1. Wean oxygen as tolerated 2. Okay to continue with heparin drip 3. Await biopsy results, possible information later today 4. Increase activity as tolerated 5. Possible port placement if lymphoma confirmed. IMPRESSIONS: 1. Acute hypoxic respiratory failure secondary to bilateral pleural effusions and PE High clinical suspicion for underlying malignancy, but to my knowledge this has not been verified by multiple biopsies at this time. Patient does have significant lymphadenopathy noted. Patient with almost 1.5 L removed earlier in hospitalization and significant improvement in oxygenation. Chest x-ray does not show any significant complications. Patient does have some residual fluid noted. Will likely not proceed with right-sided thoracentesis unless clinically indicated by oxygenation issues. She remains on a heparin drip secondary to possibility of needing port placement. No bleeding complications have been reported. Patient is being followed by oncology. 2. Probable malignancy Patient is wishing to be aggressive at this time until a diagnosis can be made. If prognosis is poor, cannot exclude palliative measures moving forward. Patient is on a heparin drip at this time to facilitate procedures if necessary. 3. Advanced age/lack of primary care/cachexia/hypernatremia/hyperchloremia Complicates care, management, recovery and prognosis. Hypernatremia and hyperchloremia are likely secondary to fluid resuscitation. We will KVO IV fluids. Code Visit Inpatient E&M: 37532 Subs Hosp L3
--- NOTE | 2018-09-16 11:31 | CASEMGMT ---
Addendum entered by Carmina Barriga 09/16/18 11:36: Referral to Terrie MCCORMICK at this time, voices understanding. Kaylynn RN KARLA Original Note: This RN CM to room to speak with pt/family regarding discharge plan. Therapy is recommending further skilled therapy and states pt 'weak, unsteady'. Pt states would like to go home but is willing to go to facility if that's the best decision at this time. This RN CM explained all options(SNF, HHC, OP therapy) to pt/family at this time, voice understanding and all questions answered at this time. Pt states if she does go somewhere, she would like to go to TCU. Pt is still undecided at this time. This RN CM advised pt/family that would check in TCU bed and give them some time to discuss at this time, voice understanding. This RN CM also discussed Eliquis script and advised that if pt goes home at discharge, this RN CM will check on coverage, voice understanding. Pt/family voice no further questions/concerns/needs at this time. Kaylynn DORADO CM
--- NOTE | 2018-09-16 14:20 | CASEMGMT ---
RN KARLA said patient and were interested in TCU. SW spoke with Olga in TCU and they would be able to take patient. JACE let patient and her know this information. Plan: [facility] TCU Lea CAIN
[2018-09-16] MEDS: 0.9% NaCl Peripheral Flush Adult/Peds IV (18:05)
[2018-09-16] MEDS: APIXABAN 5 MG TABLET 10 MG PO (21:54)
[2018-09-17] VITALS (16 sets, daily range): BP systolic 121–145; BP diastolic 56–79; PULSE 77–100; RESP 14–18; TEMP 36.3–37.1; O2SAT 91–97
[2018-09-17 06:04] LABS: Anion Gap 8 (5-15); BUN 17 mg/dL (7-18); BUN/Creat Ratio 26.5 RATIO (10-20); Chloride 111 mmol/L (98-107); Creatinine, Serum 0.64 mg/dL (0.55-1.02); EST Glomerular Filtration Rate 96 mL/min (>60); Est Glom Filt Rate - Afr Amer 117 mL/min (>60); Estimated Creatinine Clearance 40.02 ml/min; Glucose 91 mg/dL (74-106); Potassium 3.9 mmol/L (3.5-5.1); Sodium Level 146 mmol/L (136-145)
[2018-09-17 06:19] LABS: Absolute Lymphocyte Count 0.48 X10^3/ul (0.83-4.51); Absolute Neutrophil Count 3.6 X10^3/uL (2.0-7.7); Basophil# 0.01 X10^3/uL; Basophil% 0.2 % (0-1); Eosinophil# 0.04 X10^3/uL; Eosinophils% 0.9 % (0-5); Hematocrit 33.3 % (37-47); Hemoglobin 10.5 g/dl (12.0-15.0); Lymphocyte # 0.48 X10^3/ul (4.0); Lymphocyte % 10.5 % (19-41); Mean Corp Hgb Conc 31.5 g/gl (32-36); Mean Corpuscular Hgb 27.6 pg (27.0-32.0); Mean Corpuscular Volume 87.6 fL (81-99); Mean Platelet Vol. 10.5 fl (6.2-12.0); Monocyte# 0.41 X10^3/uL; Neutrophil # 3.63 X10^3/uL (2.7-7.7); Neutrophil % 79.2 % (47-70); Platelet Count 237 K/mm3 (150-450); RBC Distribution Width CV 16.5 % (11.6-14.6); RBC Distribution Width SD 50.9 fl (35.1-43.9); White Blood Count 4.6 K/mm3 (4.4-11.0)
[2018-09-17 06:20] LABS: Differential Indicated SCAN CRITERIA MET; POSITIVE COUNT NO; POSITIVE DIFFERENTIAL YES; POSITIVE MORPHOLOGY NO
[2018-09-17] MEDS: Ipratropium/Albuterol Sulfate 3 ML AMPUL.NEB INHALATION ×3 (07:01→18:47)
--- NOTE | 2018-09-17 09:30 | PN_ITS ---
Subjective: Patient did well overnight. No acute issues were reported. Patient has been able to be weaned to 3 L nasal cannula. Patient was able to make it to the bathroom this morning with relative ease. Patient denies any bleeding complications since being initiated on Eliquis therapy. No additional pathology reports are available. - Physical Exam General: Alert, Oriented x3, Cooperative, No apparent distress, - - Cachectic. Speaking in full sentences. HEENT: Atraumatic, PERRLA, EOMI, Normocephalic, - - No scleral icterus or injection noted. Oral: Moist Mucosa, No Gingival or Mucosal Lesions/ Ulcerations Neck: Supple, No JVD, No Nodes, Trachea Midline Lungs: No rhonchi, No wheeze, No rales, Diminished - Bilateral bases, - - Symmetric expansion. Cardiovascular: Regular rate, Regular Rhythm, Normal S1, Normal S2, No murmurs, No rub noted, No Gallop Abdomen: Bowel Sounds Present, Soft, Non Tender, Non-Distended Extremities: No cyanosis, No edema, Capillary Refill Less than 3 Seconds, Clubbing Skin: No rashes, No breakdown Musculoskeletal: No Tenderness to Palpation of Joints or Extremities Lymphatic: No Cervical, Supraclavicular, or Inguinal Adenopathy Neurological: Cranial nerves II-XII grossly intact, Neuro grossly intact, Motor Exam 5/5 strength throughout Psych/Mental Status: Alert and oriented to time, place, person, mood and affect Vital Signs Temp Pulse Resp BP Pulse Ox 36.8 C 98 18 121/79 H 96 09/17/18 08:11 09/17/18 09:10 09/17/18 09:10 09/17/18 08:11 09/17/18 09:10 Oxygen Flow Rate (L/min) [4] 4 Oxygen Flow Rate (L/min) [3] 4 Oxygen Flow Rate (L/min) [2] 4 Oxygen Flow Rate (L/min) [1 ( 4 Initial Baseline)] Oxygen Flow Rate (L/min) 2 Oxygen Delivery Method [4] Nasal Cannula Oxygen Delivery Method [3] Nasal Cannula Oxygen Delivery Method [2] Nasal Cannula Oxygen Delivery Method [1 ( Nasal Cannula Initial Baseline)] Oxygen Delivery Method Nasal Cannula Weight: 50.6 kg Body Mass Index (BMI) 20.9 Intake and Output for Last 24 Hours 09/15/18 09/16/18 09/17/18 23:59 23:59 23:59 Intake Total 534.8 / 534.8 886.8 / 886.8 100 / 100 Output Total 430 / 430 Balance 104.8 / 104.8 886.8 / 886.8 100 / 100 Laboratory Tests Past 24 Hrs 09/17/18 09/17/18 05:15 05:15 WBC 4.6 RBC 3.80 L Hgb 10.5 L Hct 33.3 L MCV 87.6 MCH 27.6 MCHC 31.5 L RDW 16.5 H RDW Differential 50.9 H Plt Count 237 MPV 10.5 Immature Gran % (Auto) 0.200 Neut % (Auto) 79.2 H Lymph % (Auto) 10.5 L [place] % (Auto) 9.0 Eos % (Auto) 0.9 Baso % (Auto) 0.2 Absolute Neuts (auto) 3.6 Absolute Lymphs (auto) 0.48 L Total Counted Not Reportable Sodium 146 H Potassium 3.9 Chloride 111 H Carbon Dioxide 27.0 Anion Gap 8 BUN 17 Creatinine 0.64 Estim Creat Clear Calc 40.02 Est GFR (MDRD) Af Amer 117 Est GFR (MDRD) Non-Af 96 BUN/Creatinine Ratio 26.5 H Glucose 91 Calcium 8.0 L Medical Necessity - Tobacco Use Smoking Status: Never smoker Assessment/Plan All Active Problems (Last Updated 09/13/18 @ 14:06 by Kamryn Prince MD) DVT, bilateral lower limbs (Acute) Pulmonary embolism (Acute) Generalized lymphadenopathy (Acute) Pleural effusion, bilateral (Acute) RECOMMENDATIONS: 1. Walking oximetry prior to discharge 2. Anticoagulation indefinitely 3. Await biopsy results 4. Increase activity as tolerated 5. Okay to go to TCU from my perspective IMPRESSIONS: 1. Acute hypoxic respiratory failure secondary to bilateral pleural effusions and PE High clinical suspicion for underlying malignancy, but to my knowledge this has not been verified by multiple biopsies at this time. Patient does have significant lymphadenopathy noted. Patient with almost 1.5 L removed earlier in hospitalization and significant improvement in oxygenation. Chest x-ray does not show any significant complications. Patient has had some continual improvement in oxygen saturations. This is likely secondary to anticoagulation dealing with pulmonary embolism. If oxygenation worsens, chest x-ray to evaluate left-sided pleural effusion would be appropriate. Okay to go to TCU from my perspective. 2. Probable malignancy Patient is wishing to be aggressive at this time until a diagnosis can be made. If prognosis is poor, cannot exclude palliative measures moving forward. Patient is on a heparin drip at this time to facilitate procedures if necessary. 3. Advanced age/lack of primary care/cachexia/hypernatremia/hyperchloremia Complicates care, management, recovery and prognosis. Hypernatremia and hyperchloremia are likely secondary to fluid resuscitation. Code Visit Inpatient E&M: 86677 Subs Hosp L2
--- NOTE | 2018-09-17 09:45 | ONC.PN.INPT ---
- Problem List (1) Lymphoma Status: Acute (2) Generalized lymphadenopathy Status: Acute (3) Pleural effusion, bilateral Status: Acute (4) DVT, bilateral lower limbs Status: Acute (5) Pulmonary embolism Status: Acute (6) Weight loss, non-intentional Status: Chronic Subjective Date of Service:: 09/17/18 Dyspnea 73-year-old female admitted with acute bilateral pulmonary embolism and bilateral lower extremities DVT. Her medical history is notable for 6-12 months fluctuating painlessly enlarging lymph nodes in her axillae and groins. Over the past 6 months she has noted steady weight loss going from size 6-8 to current size 4. She did not seek medical attention until late August 2018 when she experienced increasing dyspnea. August 31, 2018: Chest x-ray revealed bilateral pleural effusions. September 01, 2018: Thoracocentesis 1070 mL of macy-colored fluid was drained, fluid cytology negative for malignancy. September 10, 2018: CT abdomen and pelvis: MPRESSION: 1. Large left-sided pleural effusion and moderate sized right-sided effusion. 2. Bilateral lower lobe atelectasis. 3. 1.4 cm probable cyst of the posterior right hepatic lobe. 4. Mild right hydronephrosis. 5. Severe sigmoid diverticulosis. 6. Extensive retroperitoneal, deep pelvic/iliac chain, and bilateral inguinal adenopathy. 7. Small amount of pelvic ascites. 8. Increased subcutaneous fatty stranding suggestive of anasarca. 9. Sclerotic focus of the T10 body which may represent metastatic lesion. September 11, 2018: Inguinal lymph node biopsy, flow cytometry consistent with a B-cell lymphoma but sample was too small to subclassify pathologically. September 13, 2018: Admitted with increasing dyspnea and CTA showed evidence of bilateral pulmonary embolism and Doppler ultrasound both lower extremities show evidence for bilateral DVTs. Past Medical History: Chronic Problems (Last Updated 09/13/18 @ 14:06 by Kamryn Prince MD) Weight loss, non-intentional (Chronic) Pelvic mass in female (Chronic) IBS (irritable bowel syndrome) (Chronic) controlled with diet History of hyperthyroidism (Chronic) Past Medical History - Most Recent Inpatient Visit Past Medical History Start: 09/13/18 15:14 Text: Status: Complete Freq: ONCE Protocol: Document 09/13/18 16:48 ALLEN (Rec: 09/13/18 16:53 [facility] [id number]) BMI Required to complete PMH What is Patient's BMI 20.9 Neurologic Medical History Hx Stroke/TIA No Hx Dementia/Alzheimer's No Hx Parkinson's Disease No Hx Seizures No Hx Multiple Sclerosis No Hx Migraines No Cardiac Medical History VTE Present on Admission No Hx of Deep Vein Thrombosis/VTE/PE Yes: this admission Hx Hypertension No Hx Chest Pain/Angina No Hx Heart Attack No Hx Cardiac Surgery/Stents/Etc. No Hx Heart Failure No Hx Pacemaker/AICD No Hx Irregular Heartbeat and/or Afib No Hx Anticoagulant Therapy No Query Text:(Coumadin, Aspirin, Plavix, Xarelto, etc.) Hx Pain in Legs when Walking/Leg Cramps Yes Respiratory Medical History Hx COPD No Hx Emphysema No Hx Smoking No Smoking Status Never smoker Hx Smoking Exposure No Hx Tobacco Use in last 12 months No Hx of Pipe Smoking No Hx of Cigar Smoking No Hx Sleep Apnea No Do you snore loudly (louder than talking Yes or can be heard through closed doors)? Do you often feel tired/ fatigued/ No sleepy during daytime? Has anyone observed you stop breathing Yes during sleep? STOP Results Positive GI Medical History Hx Ulcer No Hx Hepatitis No Hx Cirrhosis No Hx GI Bleed No Hx Unplanned Weight Loss Yes: recent dx with cancer Genitourinary Medical History Indwelling Catheter in Place on Arrival/ No Admission Hx Renal Disease No Hx Dialysis No Musculoskeletal History Hx Arthritis No Hx Rheumatoid Arthritis No Endocrine Medical History Hx Diabetes No Hx Thyroid Disease Yes: OVER ACTIVE X2 1997 Hematologic Medical History Hx of Blood Transfusion No Hx of Transfusion in last 3 Months No Ever experience any problems with No transfusion(s)? Hx of Preganancy in last 3 Months No Nurse Filling Out Transfusion & [facility] Questions: Date: 09/13/18 Time: 16:52 Psycho/Social Medical History Hx Depression Yes: WINTER Hx Anxiety Yes Hx Behavior Disorder No Hx Alcohol Use No Hx Substance Use No Other Medical History Hx Blood Disorders No Hx Anemia Yes: A CHILD Hx Cancer Yes: LYMPH NODES Hx Drug Resistant Organism No Wound/Pressure Injury Present on Arrival No /Admission Query Text:If yes, chart assessment in Shift/Clinical Findings Central Line/PICC/VAD Present on Arrival No /Admission Antibiotics within last 7 days? No Methicillin Resistant Staphylococcus aureus Screening Active MRSA No Risk for Readmission Number of Risk Factors 7 At Risk for Readmission Patient is At Risk For Readmission Patient is eligible for Call Back Y Past Medical History (Last Updated 09/13/18 @ 14:06 by Kamryn Prince MD) IBS (irritable bowel syndrome) (Chronic) History of hyperthyroidism (Chronic) Past Surgical History (Last Reviewed 09/11/18 @ 13:26 by Agnes Denis) History of lumpectomy (Acute) History of thoracentesis (Acute) Maternal Family History: Family History (Last Reviewed 09/11/18 @ 13:26 by Agnes Denis) Mother Hypertension Cancer Diabetes Father Diabetes Kidney disease Hypertension Hyperlipemia Sister Breast cancer Family History: Diabetes Paternal Family History: Family History (Last Reviewed 09/11/18 @ 13:26 by Agnes Denis) Mother Hypertension Cancer Diabetes Father Diabetes Kidney disease Hypertension Hyperlipemia Sister Breast cancer Family History: Heart Disease - Social History Lives: Spouse/ Significant Other Smoking Status: Never smoker Alcohol: None Drugs: None Review of Systems Constitutional:: Reports: Weakness, Fatigue, Weight loss, Appetite change Cardiovascular:: Reports: Dyspnea on exertion - Less since the tap Respiratory: Reports: Shortness of breath upon exertion Skin: Reports: Skin Changes - Redness over the sacrum, encouraged to ambulate and to go to rehab Vital Signs Height 5 ft 3 in Weight: 50.6 kg Weight in Pounds 111.6 lbs Pulse Ox 95 Temperature 98.3 F Pulse Rate [4] 97 Pulse Rate [3] 100 Pulse Rate [2] 106 Pulse Rate [1 (Initial 102 Baseline)] Pulse Rate 98 Respiratory Rate [4] 18 Respiratory Rate [3] 18 Respiratory Rate [2] 18 Respiratory Rate [1 (Initial 18 Baseline)] Respiratory Rate 18 Blood Pressure [BP] 121/79 Blood Pressure [4] 125/69 Blood Pressure [3] 136/83 Blood Pressure [2] 153/96 Blood Pressure [1 (Initial 137/77 Baseline)] Blood Pressure 122/59 Blood Pressure Position [BP] Sitting Blood Pressure Position Semi-Fowlers - Physical Exam General: Alert, Oriented x3, No apparent distress, - - ECOG 2, frail, on oxygen Skin:: Redness - Over the sacrum but no open sores Laboratory Data: Laboratory Tests 09/17/18 09/17/18 Range/Units 05:15 05:15 WBC 4.6 (4.4-11.0) K/mm3 RBC 3.80 L (4.2-5.4) M/mm3 Hgb 10.5 L (12.0-15.0) g/dl Hct 33.3 L (37-47) % MCV 87.6 (81-99) fL MCH 27.6 (27.0-32.0) pg MCHC 31.5 L (32-36) g/gl RDW 16.5 H (11.6-14.6) % RDW Differential 50.9 H (35.1-43.9) fl Plt Count 237 (150-450) K/mm3 MPV 10.5 (6.2-12.0) fl Immature Gran % (Auto) 0.200 (0.0-0.9) % Neut % (Auto) 79.2 H (47-70) % Lymph % (Auto) 10.5 L (19-41) % [place] % (Auto) 9.0 (0-10) % Eos % (Auto) 0.9 (0-5) % Baso % (Auto) 0.2 (0-1) % Absolute Neuts (auto) 3.6 (2.0-7.7) X10^3/uL Absolute Lymphs (auto) 0.48 L (0.83-4.51) X10^3/ul Total Counted Not Reportable Sodium 146 H (136-145) mmol/L Potassium 3.9 (3.5-5.1) mmol/L Chloride 111 H (98-107) mmol/L Carbon Dioxide 27.0 (21.0-32.0) mmol/L Anion Gap 8 (5-15) BUN 17 (7-18) mg/dL Creatinine 0.64 (0.55-1.02) mg/dL Estim Creat Clear Calc 40.02 ml/min Est GFR (MDRD) Af Amer 117 (>60) mL/min Est GFR (MDRD) Non-Af 96 (>60) mL/min BUN/Creatinine Ratio 26.5 H (10-20) RATIO Glucose 91 (74-106) mg/dL Calcium 8.0 L (8.5-10.1) mg/dL Diagnostic Data: Diagnostic Data Chest CTA 09/13/18 12:46 IMPRESSION: Findings are positive for bilateral pulmonary embolism. Large left effusion. Large right effusion. Lymphadenopathy. Abdominal ascites. Focal density in T12 focal sclerotic density vertebral body T10 suspicious for osteoblastic metastasis. N.B. : The above information has been verbally conveyed by Selene Caro MD to Christian Lopez [phone], VASU, on 09/13/2018 14:31:10 (ET). Electronically Signed: Selene Caro MD at 14:20 EST Tel , Service support , ADDENDUM: 09/13/18 1438 Thoracentesis Ultrasound 09/14/18 08:00 IMPRESSION: Ultrasound-guided left thoracentesis. Electronically Signed: Chris Alfaro MD at 15:36 EST Tel [phone], Service support , Chest X-Ray 09/14/18 15:08 IMPRESSION: Status post left thoracentesis. There is no evidence of pneumothorax. Small bilateral pleural effusions with underlying atelectasis. Electronically Signed: Chris Alfaro MD at 8:33 EST Tel [phone], Service support , Pathology Data: Lymph node biopsy flow cytometry consistent with a B-cell lymphoma but pathology could not give a subtype due to small sample size. Assessment and Plan 73-year-old female with: 1. Bilateral pulmonary embolism and bilateral lower extremities DVT most likely secondary to malignancy induced hypercoagulability. Advised systemic anticoagulation. Duration of anticoagulation to be determined later but at least for 1 year in view of underlying malignancy. While undergoing invasive procedures (open lymph node biopsy and port placement scheduled for 09/18/2018) advised holding of oral anticoagulants, resuming IV heparin to be held 4-6 hours prior to invasive procedure. 2. Generalized lymphadenopathy and anasarca due to lymphoma, clinically aggressively behaving. An open excisional biopsy required to subclassify, discussed with and will be scheduled for 09/18/2018 specific therapeutic recommendations await final pathology. 3. Rapidly recurring bilateral pleural effusions with a negative cytology twice suspect secondary to lymphatic obstruction. 4. Early pressure sore over the sacrum, ambulation encouraged, to go to rehab after the lymph node biopsy while awaiting final pathology and active treatment for lymphoma. Patient was seen with her , impression and plan discussed Medications: Prescriptions This Visit Medication Instructions Recorded Apixaban [Eliquis] 5 mg PO BID #90 tablet 09/16/18 Primary Care Provider: Mikey Diamond MD Referring Provider: Himanshu Duran
--- NOTE | 2018-09-17 10:17 | PN_ITS ---
Patient Problems: Active and Suspected Problems (Last Updated 09/13/18 @ 14:06 by Kamryn Prince MD) Lymphoma (Acute) Subjective: Chief complaint: Follow-up after admission for acute bilateral multiple pulmonary emboli, acute on chronic hypoxic respiratory failure and also found to have acute bilateral DVTs. Patient seen and examined. No acute events overnight. Today, she is feeling better. Shortness of breath is continued to improve slowly. Pulse ox has been maintained at 97% on 3 L. Other vital signs are stable. According to Dr. Berger, lymph node biopsy revealed lymphoma but the tissue biopsy was not enough to make the final diagnosis. The plan was changed to have excisional lymph node biopsy done tomorrow. Patient will be started back on IV heparin drip, will discontinue Eliquis. - Physical Exam General: Alert, Oriented x3, Cooperative, No apparent distress HEENT: Atraumatic, PERRLA, EOMI, Normocephalic Oral: Moist Mucosa, No Gingival or Mucosal Lesions/ Ulcerations Neck: Supple, No JVD, Negative Carotid Bruits, Trachea Midline, Thyroid Normal Size and Texture Lungs: Clear to auscultation, No rhonchi, No wheeze, No rales, Diminished, - - Decreased breath sounds at the bases, otherwise clear. Cardiovascular: Regular rate, Regular Rhythm, Normal S1, Normal S2, PMI Normal Abdomen: Bowel Sounds Present, Soft, Non Tender, Non-Distended, No Hepato- splenomegaly Extremities: No clubbing, No cyanosis, Edema Skin: No rashes, No breakdown Lymphatic: No Cervical, Supraclavicular, or Inguinal Adenopathy Neurological: Cranial nerves II-XII grossly intact, Neuro grossly intact Psych/Mental Status: Normal Affect, Appropriate, Alert and oriented to time, place, person, mood and affect Vital Signs Temp Pulse Resp BP Pulse Ox 98.3 F 98 18 121/79 H 95 09/17/18 08:11 09/17/18 09:10 09/17/18 09:40 09/17/18 08:11 09/17/18 09:40 Oxygen Flow Rate (L/min) [4] 4 Oxygen Flow Rate (L/min) [3] 4 Oxygen Flow Rate (L/min) [2] 4 Oxygen Flow Rate (L/min) [1 ( 4 Initial Baseline)] Oxygen Flow Rate (L/min) 2 Oxygen Delivery Method [4] Nasal Cannula Oxygen Delivery Method [3] Nasal Cannula Oxygen Delivery Method [2] Nasal Cannula Oxygen Delivery Method [1 ( Nasal Cannula Initial Baseline)] Oxygen Delivery Method Nasal Cannula Weight: 111 lb 8.862 oz Body Mass Index (BMI) 20.9 Intake and Output for Last 24 Hours 09/15/18 09/16/18 09/17/18 23:59 23:59 23:59 Intake Total 534.8 / 534.8 886.8 / 886.8 100 / 100 Output Total 430 / 430 Balance 104.8 / 104.8 886.8 / 886.8 100 / 100 Laboratory Tests Past 24 Hrs 09/17/18 09/17/18 05:15 05:15 WBC 4.6 RBC 3.80 L Hgb 10.5 L Hct 33.3 L MCV 87.6 MCH 27.6 MCHC 31.5 L RDW 16.5 H RDW Differential 50.9 H Plt Count 237 MPV 10.5 Immature Gran % (Auto) 0.200 Neut % (Auto) 79.2 H Lymph % (Auto) 10.5 L [place] % (Auto) 9.0 Eos % (Auto) 0.9 Baso % (Auto) 0.2 Absolute Neuts (auto) 3.6 Absolute Lymphs (auto) 0.48 L Total Counted Not Reportable Sodium 146 H Potassium 3.9 Chloride 111 H Carbon Dioxide 27.0 Anion Gap 8 BUN 17 Creatinine 0.64 Estim Creat Clear Calc 40.02 Est GFR (MDRD) Af Amer 117 Est GFR (MDRD) Non-Af 96 BUN/Creatinine Ratio 26.5 H Glucose 91 Calcium 8.0 L Medical Necessity - Tobacco Use Smoking Status: Never smoker Assessment/Plan All Active Problems (Last Updated 09/13/18 @ 14:06 by Kamryn Prince MD) Lymphoma (Acute) DVT, bilateral lower limbs (Acute) Pulmonary embolism (Acute) Generalized lymphadenopathy (Acute) Pleural effusion, bilateral (Acute) This is a 73 years old female patient presented to the ED because of worsening shortness of breath, weakness and palpitation, found to have acute bilateral pulmonary emboli complicated by acute on chronic hypoxic respiratory failure. #1 acute bilateral pulmonary emboli: Started on loading dose of Eliquis. Her respiratory status stabilized, pulse ox has been maintained on 3 L of oxygen. Patient is feeling better. Reportedly, inguinal lymph node biopsy revealed lymphoma but biopsy tissue was not enough to make final diagnosis. Decision was made to do a excisional lymph node biopsy tomorrow. Plan: Restart IV heparin drip without loading dose, discontinue Eliquis at this time. #2 acute bilateral DVTs of the lower extremities: Plan as above to DC Eliquis and start IV heparin drip because patient is going for lymph node biopsy tomorrow. Plan as above. Venous Doppler revealed acute DVT of the right femoral, popliteal, tibioperoneal trunk, gastrocnemius, posterior tibial, peroneal and soleal veins as well as left popliteal, gastrocnemius and soleus veins. #3 acute on chronic hypoxic respiratory failure: Multifactorial secondary to bilateral pulmonary emboli as well as pleural effusions. Status post left thoracentesis, 1500 cc of fluids taken out. Respiratory status and oxygenation continued to improve slowly, she is down to 3 L, stable. #4 bilateral pleural effusion: Status post repeat left thoracentesis that was done yesterday. Pleural fluid cytology again negative for malignant cells. During the last admission, she underwent left thoracentesis, found to have lymphocytic exudative effusion that was negative for malignant cells as well. #5 generalized lymphadenopathy: Status post right inguinal lymph node biopsy that was done on September 11, 2018, and reportedly, that biopsy revealed lymphoma but final diagnosis cannot be made because of not enough tissue for diagnosis. Plan for excisional lymph node biopsy tomorrow. #6 history of hyperthyroidism: Currently not on treatment. Her TSH was normal at 1.70 on August 31, 2018. #7 irritable bowel syndrome: Diet controlled, stable. She is on clear liquids. #8 DVT prophylaxis: Will restart IV heparin drip. This note was generated with Codeanywhere dictation software. It may contain incorrect words, spelling, and punctuation that were not noted in checking the note before signing. Code Visit Inpatient E&M: 12869 Subs Hosp L2
--- NOTE | 2018-09-17 10:47 | CASEMGMT ---
Call to [facility] in [place] and per [employer], pt's blake with [employer] discount for 90 day supply is $670. Tech states will put on hold at this time. Call to [employer] to clarify coverage and per [employer], it is just a discount card. They provided this RN CM with a website where pt/family can go to check meds and blake. [employer] This RN CM went to site and Eliquis will be $435 at discounted blake. This RN CM to room to speak with pt/family regarding same at this time. Pt/family provided with Eliquis 30 day free card at this time with instructions, as well as website to check meds in the future, voice understanding. Pt's and daughter are at bedside during discussion and they are updated on [employer] at this time, voice understanding. Pt asks about signing up for [facility] prescription coverage and advised pt/family that open enrollment closed on 09/11/18. Pt/family also state that pt's other daughter, Shweta, is working on other prescription insurance options for pt at this time as pt may be placed on treatment for lymphoma per pt/family. Pt's biopsies are pending at this time. Advised pt/family that there are prescription assistance programs available, referral to Terrie MCCORMICK regarding same, voices understanding. Pt also mentions that she is not sure that she will want to go through all the treatment depending on what is recommended. Pt is upset about how much all the treatment/medications may cost and that they do not have coverage and states 'Maybe we will just have to sell the house.' Pt states that they have had multiple offers and have thought about selling recently [place] the [place] Advised pt/family that SW would bring in more prescription assist and that the cancer center could also help, voice understanding. This RN CM also updated Tricia MCCORMICK in TCU at this time on all, voices understanding. Kaylynn DORADO CM
[2018-09-17] MEDS: HEPARIN/D5w 25,000 UNITS 25,000 UNITS/250 ML IV.SOLN. 7 UNITS IV (12:18)
[2018-09-17] MEDS: 0.9% NaCl Peripheral Flush Adult/Peds IV ×3 (12:19→19:35)
[2018-09-17 12:32] LABS: International Normalized Ratio 1.3; Partial Thromboplast Time 26.5 Seconds (24.1-36.2); Prothrombin Time (Protime)PT. 15.8 SECONDS (11.7-14.9)
--- NOTE | 2018-09-17 12:43 | CASEMGMT ---
Patient just has a discount prescription card. SW spoke with patient and her telling them about [facility]. They were very grateful for the information. Plan: [facility] pending patient being medically ready. Lea CAIN
--- NOTE | 2018-09-17 13:59 | PN.SURG_ITS ---
Patient Problems: Active and Suspected Problems (Last Updated 09/13/18 @ 14:06 by Kamryn Prince MD) Lymphoma (Acute) Subjective: Patient is not having any issues today. - Physical Exam General: Alert, Oriented x3, Cooperative Neck: No JVD Cardiovascular: Regular rate, Regular Rhythm Abdomen: Soft, Non Tender, Non-Distended Extremities: - - Inguinal lymphadenopathy bilaterally Vital Signs Temp Pulse Resp BP Pulse Ox 98.3 F 98 16 121/79 H 95 09/17/18 08:11 09/17/18 13:22 09/17/18 13:22 09/17/18 08:11 09/17/18 09:40 Oxygen Flow Rate (L/min) [4] 4 Oxygen Flow Rate (L/min) [3] 4 Oxygen Flow Rate (L/min) [2] 4 Oxygen Flow Rate (L/min) [1 ( 4 Initial Baseline)] Oxygen Flow Rate (L/min) 2 Oxygen Delivery Method [4] Nasal Cannula Oxygen Delivery Method [3] Nasal Cannula Oxygen Delivery Method [2] Nasal Cannula Oxygen Delivery Method [1 ( Nasal Cannula Initial Baseline)] Oxygen Delivery Method Nasal Cannula Weight: 111 lb 8.862 oz Body Mass Index (BMI) 20.9 Intake and Output for Last 24 Hours 09/15/18 09/16/18 09/17/18 23:59 23:59 23:59 Intake Total 534.8 / 534.8 886.8 / 886.8 100 / 100 Output Total 430 / 430 Balance 104.8 / 104.8 886.8 / 886.8 100 / 100 Laboratory Tests Past 24 Hrs 09/14/18 09/17/18 09/17/18 15:00 05:15 05:15 WBC 4.6 RBC 3.80 L Hgb 10.5 L Hct 33.3 L MCV 87.6 MCH 27.6 MCHC 31.5 L RDW 16.5 H RDW Differential 50.9 H Plt Count 237 MPV 10.5 Immature Gran % (Auto) 0.200 Neut % (Auto) 79.2 H Lymph % (Auto) 10.5 L [place] % (Auto) 9.0 Eos % (Auto) 0.9 Baso % (Auto) 0.2 Absolute Neuts (auto) 3.6 Absolute Lymphs (auto) 0.48 L Total Counted Not Reportable PT INR APTT Sodium 146 H Potassium 3.9 Chloride 111 H Carbon Dioxide 27.0 Anion Gap 8 BUN 17 Creatinine 0.64 Estim Creat Clear Calc 40.02 Est GFR (MDRD) Af Amer 117 Est GFR (MDRD) Non-Af 96 BUN/Creatinine Ratio 26.5 H Glucose 91 Calcium 8.0 L Miscellaneous Cytology SEE PATHOLOGY REPORT 09/17/18 12:08 WBC RBC Hgb Hct MCV MCH MCHC RDW RDW Differential Plt Count MPV Immature Gran % (Auto) Neut % (Auto) Lymph % (Auto) [place] % (Auto) Eos % (Auto) Baso % (Auto) Absolute Neuts (auto) Absolute Lymphs (auto) Total Counted PT 15.8 H INR 1.3 APTT 26.5 Sodium Potassium Chloride Carbon Dioxide Anion Gap BUN Creatinine Estim Creat Clear Calc Est GFR (MDRD) Af Amer Est GFR (MDRD) Non-Af BUN/Creatinine Ratio Glucose Calcium Miscellaneous Cytology Medical Necessity - Tobacco Use Smoking Status: Never smoker Assessment/Plan All Active Problems (Last Updated 09/13/18 @ 14:06 by Kamryn Prince MD) Lymphoma (Acute) DVT, bilateral lower limbs (Acute) Pulmonary embolism (Acute) Generalized lymphadenopathy (Acute) Pleural effusion, bilateral (Acute) 73-year-old female with generalized lymphadenopathy, possible lymphoma 1. I discussed the pathology with Dr. Moran. The patient was positive for lymphoma by flow cytometry but the histology was not conclusive due to lack of tissue. The recommendation is for an excisional biopsy of lymph node. The patient was also recommended to have a port placed by her oncologist. 2. I discussed port placement as well as right inguinal lymph node excisional biopsy with the patient. I discussed the risks including but not limited to bleeding, infection, pneumothorax, DVT, line infection. I explained that the patient would come off of her heparin drip 4 hours prior to the procedure and resume it 6 hours after. This would leave her exposed to possible additional pulmonary embolism. The patient understands this and is willing to proceed. 3. I will schedule the patient for right chest port placement and right ingui nal lymph node biopsy tomorrow afternoon. Bi Garcia MD Pager: [facility] [address] [place] [address], [address] [place] [phone] Office:
[2018-09-17 19:02] LABS: Partial Thromboplast Time 47.8 Seconds (24.1-36.2)
[2018-09-17] MEDS: Heparin Injection (Vial) 5,000 UNIT/ML VIAL IV (19:27)
--- NOTE | 2018-09-17 19:50 | EKG12_ITS ---
Test Reason : PAIN Blood Pressure : / mmHG Vent. Rate : 094 BPM Atrial Rate : 094 BPM P-R Int : 118 ms QRS Dur : 080 ms QT Int : 338 ms P-R-T Axes : 043 065 061 degrees QTc Int : 422 ms Normal sinus rhythm with sinus arrhythmia Normal ECG When compared with ECG of 13-SEP-2018 12:26, No significant change was found Confirmed by JORGE ALEX, KELLY ([id number]), web editor RACHELLE VALERO ([id number]) on 09/21/2018 7:49:38 AM Referred By: Kamryn Prince Confirmed By:KELLY PATEL MD
[2018-09-18] VITALS (18 sets, daily range): BP systolic 90–150; BP diastolic 50–87; PULSE 68–98; RESP 16–18; TEMP 36.4–36.9; O2SAT 92–96; BMI 19.8
--- NOTE | 2018-09-18 | IMM_PTH ---
PATIENT: NINFA SAM LOC: [facility] U#:[id number] AGE/SX: 73/F ROOM: [facility] RE09/13/[address]: Dr. Kamryn Prince MD : 1945 BED: 1 DIS: 09/19/2018 SPEC #: [id number] RECD: 09/22/18 07:59 STATUS: MALIA REQ #: [id number] SAVANNA: 09/18/18 00:[address]: Bi Garcia DEPT: IMMUNOHISTOCHEMISTRY RECD BY: Cristiane Kuhn ENTERED: 09/22/18 08:03 SP TYPE: IMMUNO OTHR DR: MD Dr. Guicho Vyas DO Dr. Efewongbe Oleghe, MD Dr. Ghasem E Ashelfah, MD Dr. Mansour Isckarus, MD Tissues: A - Skin of axilla, NOS B - Inguinal lymph node, NOS Procedures: BCL-2 (add) BCL-6 (add) CD10 (add) CD138 (add) CD15 (add) CD20 (add) CD23 (add) CD3 (add) CD30 (add) CD43 (add) CD45 (add) CD5 (add) CD79A (add) CYCLIN (add) KAPPA (add) KI-67 (add) LAMBDA (add) MUM1 (add) C-MYC (add) Pankeratin (initial) Comments: @ Ordering doctor for BCL2. edited from to @ by RGOMARTHA at 09/22/18 08 @ Ordering doctor for BCL6. edited from to @ by GAUTAM at 09/22/18 08 @ Ordering doctor for CD10. edited from to @ by RGOMARTHA at 09/22/18 0803 @ Ordering doctor for CD138. edited from to DR.ACALAB Mckeon by ZEESHANOD at 09/22/18 0803 @ Ordering doctor for CD15. edited from to DR.ACALAB Mckeon by ZEESHANOD at 09/22/18 0803 @ Ordering doctor for CD20. edited from to DR.ACALAB Mckeon by ZEESHANOD at 09/22/18 0803 @ Ordering doctor for CD23. edited from to DR.ACALAB Mckeon by ZEESHANOD at 09/22/18 0803 @ Ordering doctor for CD3. edited from to DR.ACALAB Mckeon by ZEESHANOD at 09/22/18 0803 @ Ordering doctor for CD30. edited from to DR.ACALAB Mckeon by ZEESHANOD at 09/22/18 0803 @ Ordering doctor for CD43. edited from to DR.ACALAB Mckeon by ZEESHANOD at 09/22/18 0803 @ Ordering doctor for CD45. edited from to DR.ACALAB Mckeon by ZEESHANOD at 09/22/18 0803 @ Ordering doctor for CD5. edited from to DR.ACALAB Mckeon by ZEESHANOD at 09/22/18 0803 @ Ordering doctor for CD79A. edited from to DR.ACALAB Mckeon by GAUTAM at 09/22/18 0803 @ Ordering doctor for CYCLIN. edited from to DR.ACALAB Mckeon by GAUTAM at 09/22/18 0803 @ Ordering doctor for K. edited from to DR.ACALAB Mckeon by GAUTAM at 09/22/18 0803 @ Ordering doctor for KI67. edited from to DR.ACALAB Mckeon by ZEESHANOD at 09/22/18 0803 @ Ordering doctor for L. edited from to DR.ACALAB Mckeon by GAUTAM at 09/22/18 0803 @ Ordering doctor for MUM1. edited from to DR.ACALAB Mckeon by ZEESHANOD at 09/22/18 0803 @ Ordering doctor for CMYC. edited from to DR.ACALAB Mckeon by GAUTAM at 09/22/18 0803 @ Ordering doctor for PANK edited from to DR.ACALAB Mckeon by RGOOD at 09/22/18802 @ Submitting doctor edited from to @ by GAUTAM at 09/22/1803 PHYSICIAN & INSTITUTION [place] [id number] SPECIMEN INFORMATION: Tissue Source: A - Left axillary skin lesion, B - Right inguinal lymph node Clinical Info: Generalized lymphadenopathy Specimen Number: [id number] A2 & B1 CPT code: 42918 x2, 92928 x38 METHODOLOGY: Deparaffinized sections of prefer/formalin-fixed tissue or PAP/DQ stained slides are incubated with monoclonal/polyclonal antibodies/oligonucleotide probes. Localization is made via biotin free immunoperoxidase method. Appropriate controls are performed and reacted as expected. Results on target cell population are indicated in the following table: RESULTS: ANTIBODY / CLONE RESULT Block A2 AE1-3 (AE1/AE3/PCK26) negative CD3 (PS1) negative CD5 (SP10) negative CD10 (56C6) positive CD15 (MMA) negative CD20 (L26) positive CD23 (1B12) negative CD30 (Nomi-H2) negative CD43 (L60) negative CD45 (RP2/18) positive CD79a (11E3) positive CD138 (B-A38) negative BCL-2 (bcl-2/100/D5) positive BCL-6 (JB579K/A8) positive Cyclin D1/BCL-1 (SP4) negative [place] (polyclonal) negative Lambda (polyclonal) negative MUM1 (MRQ-43) positive C-MYC (Y69) negative Ki-67 (30-9) positive, low Block B1 AE1-3 (AE1/AE3/PCK26) negative CD3 (PS1) negative CD5 (SP10) negative CD10 (56C6) positive CD15 (MMA) negative CD20 (L26) positive CD23 (1B12) negative CD30 (Nomi-H2) negative CD43 (L60) negative CD45 (RP2/18) positive CD79a (11E3) positive CD138 (B-A38) negative BCL-2 (bcl-2/100/D5) positive BCL-6 (TV809N/A8) positive [place] D1/BCL-1 (SP4) negative [place] (polyclonal) negative Lambda (polyclonal) negative MUM1 (MRQ-43) positive C-MYC (Y69) negative Ki-67 (30-9) negative These tests were developed and their performance characteristics determined by [facility]. They may not have been cleared or approved by the U.S. Food and Drug Administration. The FDA has determined that such clearance or approval is not necessary. INTERPRETATION: A. 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 B. 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 AM:yolanda 09/22/18
--- NOTE | 2018-09-18 | LYM_PTH ---
PATIENT: NINFA SAM LOC: [facility] U#:[id number] AGE/SX: 73/F ROOM: [facility] RE09/13/[address]: Dr. Kamryn Prince MD : 1945 BED: 1 DIS: 09/19/2018 SPEC #: [id number] RECD: 09/18/18 15:21 STATUS: MALIA [place] #: [id number] SAVANNA: 09/18/18 00:[address]: Bi Garcia DEPT: SURGICAL PATHOLOGY RECD BY: Evaristo Syed ENTERED: 09/21/18 09:23 SP TYPE: LYM NODES OTHR DR: MD Dr. Guicho Vyas DO Dr. Efewongbe Oleghe, MD Dr. Ghasem E Ashelfah, MD Dr. Mansour Isckarus, MD Tissues: A - Skin of axilla, NOS B - Inguinal lymph node, NOS Procedures: Surgery Specimen Level IV Comments: @ Ordering doctor for BEN edited from to @ silvia BARBER at 09/21/18922 @ Submitting doctor edited from to @ silvia BARBER at 09/21/18922 HEADER OPERATION: Insertion right internal jugular vascular port, excision PRE-OP DIAGNOSIS: Generalized lymphadenopathy TISSUE SUBMITTED: A - Left axillary skin lesion, B - Right inguinal lymph node in normal saline MICROSCOPIC DIAGNOSIS A. Left axillary skin lesion, biopsy: Follicular center lymphoma, grade 1-2. B. Right inguinal lymph node, biopsy: Follicular center lymphoma, grade 2. AM:yolanda 09/22/18 COMMENT The specimen is evaluated at the time of touch imprints by Dr. Moran. Immediate Evaluation = Small and large lymphocyte are noted. A & B. Immunohistochemistry ([id number]) supports the above diagnosis. Flow cytometry analysis from [facility] shows CD10 positive clonal B-cell population. The flow cytometry report is viewable in patient's EMR. Case has been reviewed in consultation with Dr. Moran who concurs with the above diagnosis. IDC:[id number] MICROSCOPIC DESCRIPTION Slides are reviewed. GROSS DESCRIPTION A - Received in formalin is one container labeled with the patient's name and designated left axillary skin lesion. The specimen consists of a polypoid piece of porras-white skin measuring 6.5 x 4 x 2.5 cm. Sections reveal porras, fleshy cut surfaces. Trainer sections are submitted in four cassettes. B - Received in normal saline labeled with the patient's name is a specimen designated right inguinal lymph node in normal saline. The specimen consists of a piece of porras-pink soft tissue measuring 1.5 x 1 x 1 cm. The specimen is serially sectioned. A section is submitted for flow cytometry study. Four touch imprints are prepared, two stained with H & E and two stained with Diff-Quik. The entire specimen is submitted in one cassette. / SJ:rg 09/18/18 TC:0 CPT: 03424 x2
[2018-09-18 01:40] LABS: Partial Thromboplast Time 59.3 Seconds (24.1-36.2)
--- NOTE | 2018-09-18 05:55 | EKG12_ITS ---
Test Reason : AM Blood Pressure : / mmHG Vent. Rate : 083 BPM Atrial Rate : 083 BPM P-R Int : 136 ms QRS Dur : 082 ms QT Int : 360 ms P-R-T Axes : 065 063 057 degrees QTc Int : 423 ms Normal sinus rhythm with sinus arrhythmia Possible Anterior infarct , age undetermined Abnormal ECG When compared with ECG of 17-SEP-2018 20:09, MANUAL COMPARISON REQUIRED, DATA IS UNCONFIRMED Confirmed by JORGE ALEX, KELLY ([id number]), news videotape editor RACHELLE VALERO ([id number]) on 09/21/2018 7:47:40 AM Referred By: Kamryn Prince Confirmed By:KELLY PATEL MD
[2018-09-18] MEDS: Ipratropium/Albuterol Sulfate 3 ML AMPUL.NEB INHALATION ×2 (07:15→19:03)
[2018-09-18 07:34] LABS: Partial Thromboplast Time 50.4 Seconds (24.1-36.2)
--- NOTE | 2018-09-18 07:57 | PN_ITS ---
Subjective: Chief complaint: Follow-up after admission for acute bilateral multiple pulmonary emboli, acute on chronic hypoxic respiratory failure and also found to have acute bilateral DVTs. Patient seen and examined. No acute events overnight. She is resting comfortably in her bed. Last night, she complained of vague left lateral and left upper quadrant pain. EKG done, showed no acute changes. Today, she has no more pain. All over, she is feeling better. Her pulse ox is 95% on 2 L. Other vital signs are stable. - Physical Exam General: Alert, Oriented x3, Cooperative, No apparent distress HEENT: Atraumatic, PERRLA, EOMI, Normocephalic Oral: Moist Mucosa, No Gingival or Mucosal Lesions/ Ulcerations Neck: Supple, No JVD, Negative Carotid Bruits, Trachea Midline, Thyroid Normal Size and Texture Lungs: No wheeze, No rales, Diminished, Rhonchi, - - Decreased breath sounds at the bases, scattered rhonchi. Cardiovascular: Regular rate, Regular Rhythm, Normal S1, Normal S2, PMI Normal Abdomen: Bowel Sounds Present, Soft, Non Tender, Non-Distended, No Hepato- splenomegaly Extremities: No clubbing, No cyanosis, Edema Skin: No rashes, No breakdown Lymphatic: No Cervical, Supraclavicular, or Inguinal Adenopathy Neurological: Cranial nerves II-XII grossly intact, Neuro grossly intact Psych/Mental Status: Normal Affect, Appropriate, Alert and oriented to time, place, person, mood and affect Vital Signs Temp Pulse Resp BP Pulse Ox 98.3 F 77 18 150/58 H 95 09/18/18 04:00 09/18/18 07:15 09/18/18 07:15 09/18/18 04:00 09/18/18 07:15 Oxygen Flow Rate (L/min) [4] 4 Oxygen Flow Rate (L/min) [3] 4 Oxygen Flow Rate (L/min) [2] 4 Oxygen Flow Rate (L/min) [1 ( 4 Initial Baseline)] Oxygen Flow Rate (L/min) 2 Oxygen Delivery Method [4] Nasal Cannula Oxygen Delivery Method [3] Nasal Cannula Oxygen Delivery Method [2] Nasal Cannula Oxygen Delivery Method [1 ( Nasal Cannula Initial Baseline)] Oxygen Delivery Method Nasal Cannula Weight: 115 lb 4.828 oz Body Mass Index (BMI) 19.8 Intake and Output for Last 24 Hours 09/16/18 09/17/18 09/18/18 23:59 23:59 23:59 Intake Total 886.8 / 886.8 381.5 / 381.5 397 / 397 Balance 886.8 / 886.8 381.5 / 381.5 397 / 397 Laboratory Tests Past 24 Hrs 09/14/18 09/17/18 09/17/18 15:00 12:08 18:35 PT 15.8 H INR 1.3 APTT 26.5 47.8 H TSH Miscellaneous Cytology SEE PATHOLOGY REPORT 09/18/18 09/18/18 09/18/18 01:18 07:10 07:10 PT INR APTT 59.3 H 50.4 H TSH Pending Miscellaneous Cytology Medical Necessity - Tobacco Use Smoking Status: Never smoker Assessment/Plan All Active Problems (Last Updated 09/13/18 @ 14:06 by Kamryn Prince MD) Lymphoma (Acute) DVT, bilateral lower limbs (Acute) Pulmonary embolism (Acute) Generalized lymphadenopathy (Acute) Pleural effusion, bilateral (Acute) This is a 73 years old female patient presented to the ED because of worsening shortness of breath, weakness and palpitation, found to have acute bilateral pulmonary emboli complicated by acute on chronic hypoxic respiratory failure. #1 acute bilateral pulmonary emboli: She is on IV heparin, Eliquis discontinued and this was done because she is going for lymph node biopsy and placement of Port-A-Cath. Her oxygen requirement has been decreasing, she is down to 2 L. Symptoms improved. Reportedly, inguinal lymph node biopsy revealed lymphoma but biopsy tissue was not enough to make final diagnosis. Plan: Hold IV heparin drip 4 hours before the procedure, resume IV heparin drip after the procedure, p mia to start Eliquis tomorrow morning. #2 acute bilateral DVTs of the lower extremities: Again, she is on IV heparin drip as above. Venous Doppler revealed acute DVT of the right femoral, popliteal, tibioperoneal trunk, gastrocnemius, posterior tibial, peroneal and soleal veins as well as left popliteal, gastrocnemius and soleus veins. #3 acute on chronic hypoxic respiratory failure: Multifactorial secondary to bilateral pulmonary emboli as well as pleural effusions. Status post left thoracentesis, 1500 cc of fluids taken out. Respiratory status and oxygenation continued to improve slowly, she is down to 2 L, continued to improve. #4 bilateral pleural effusion: Status post repeat left thoracentesis that was done yesterday. Pleural fluid cytology again negative for malignant cells. During the last admission, she underwent left thoracentesis, found to have lymphocytic exudative effusion that was negative for malignant cells as well. #5 generalized lymphadenopathy: Status post right inguinal lymph node biopsy that was done on September 11, 2018, and reportedly, that biopsy revealed lymphoma but final diagnosis cannot be made because of not enough tissue for diagnosis. Plan for excisional lymph node biopsy today. #6 history of hyperthyroidism: Currently not on treatment. #7 irritable bowel syndrome: Diet controlled, stable. She is on clear liquids. #8 DVT prophylaxis: She is on IV heparin drip. This note was generated with [employer] dictation software. It may contain incorrect words, spelling, and punctuation that were not noted in checking the note before signing. Code Visit Inpatient E&M: 17856 Subs Hosp L2
--- NOTE | 2018-09-18 08:50 | CASEMGMT ---
Patient will be discharged to TCU, likely Friday. Green sheet on chart. Plan: TCU under skilled level of care Lea CAIN
--- NOTE | 2018-09-18 10:45 | PCM.PROGNOTE ---
Subjective: Patient did well overnight. No acute issues were reported. Patient able to make it to the chair. Patient continues to require nasal cannula oxygen to maintain saturations. Objective: Flow cytometry is come back positive for B-cell lymphoma, but did not have enough tissue for subclassification. - Physical Exam General: Alert, Oriented x3, Cooperative, No apparent distress, - - Cachectic. Speaking in full sentences. HEENT: Atraumatic, PERRLA, EOMI, Normocephalic Oral: Moist Mucosa, No Gingival or Mucosal Lesions/ Ulcerations Neck: Supple, No JVD, No Nodes, Trachea Midline Lungs: No rhonchi, No wheeze, No rales, Diminished, - - Slight dullness to percussion at the left base Cardiovascular: Regular rate, Regular Rhythm, Normal S1, Normal S2, Murmur, No rub noted, No Gallop Abdomen: Bowel Sounds Present, Soft, Non Tender, Non-Distended Extremities: No cyanosis, No edema, Capillary Refill Less than 3 Seconds, Clubbing Skin: No rashes, No breakdown Musculoskeletal: No Tenderness to Palpation of Joints or Extremities Lymphatic: No Cervical, Supraclavicular, or Inguinal Adenopathy Neurological: Cranial nerves II-XII grossly intact, Neuro grossly intact, Motor Exam 5/5 strength throughout Psych/Mental Status: Alert and oriented to time, place, person, mood and affect Vital Signs Temp Pulse Resp BP Pulse Ox 36.6 C 83 17 130/87 H 96 09/18/18 09:30 09/18/18 09:30 09/18/18 09:30 09/18/18 09:30 09/18/18 09:30 Oxygen Flow Rate (L/min) [4] 4 Oxygen Flow Rate (L/min) [3] 4 Oxygen Flow Rate (L/min) [2] 4 Oxygen Flow Rate (L/min) [1 ( 4 Initial Baseline)] Oxygen Flow Rate (L/min) 2 Oxygen Delivery Method [4] Nasal Cannula Oxygen Delivery Method [3] Nasal Cannula Oxygen Delivery Method [2] Nasal Cannula Oxygen Delivery Method [1 ( Nasal Cannula Initial Baseline)] Oxygen Delivery Method Nasal Cannula Weight: 52.3 kg Body Mass Index (BMI) 19.8 Intake and Output for Last 24 Hours 09/16/18 09/17/18 09/18/18 23:59 23:59 23:59 Intake Total 886.8 / 886.8 381.5 / 381.5 397 / 397 Balance 886.8 / 886.8 381.5 / 381.5 397 / 397 Laboratory Tests Past 24 Hrs 09/17/18 09/17/18 09/18/18 12:08 18:35 01:18 PT 15.8 H INR 1.3 APTT 26.5 47.8 H 59.3 H Uric Acid TSH 09/18/18 09/18/18 09/18/18 07:10 07:10 07:10 PT INR APTT 50.4 H Uric Acid Pending TSH 2.70 Medical Necessity - Tobacco Use Smoking Status: Never smoker Assessment/Plan All Active Problems (Last Updated 09/13/18 @ 14:06 by Kamryn Prince MD) Lymphoma (Acute) DVT, bilateral lower limbs (Acute) Pulmonary embolism (Acute) Generalized lymphadenopathy (Acute) Pleural effusion, bilateral (Acute) RECOMMENDATIONS: 1. Walking oximetry prior to discharge 2. Reinitiate anticoagulation 24 hours after biopsy 3. Await biopsy results 4. Increase activity as tolerated 5. Okay to go to TCU from my perspective IMPRESSIONS: 1. Acute hypoxic respiratory failure secondary to bilateral pleural effusions and PE Patient has come back positive for B-cell lymphoma. Subclassification is not able to be obtained secondary to lack of tissue. Patient to have an excisional biopsy completed. Anticoagulation can be held and reinitiated 24 hours after biopsy. Patient will likely be on anticoagulation indefinitely. Would not recommend pursuing thoracentesis unless patient is having symptomatic response as it is high probability to be secondary to the lymphoma. 2. B-cell lymphoma Patient is wishing to be aggressive at this time until a diagnosis can be made. If prognosis is poor, cannot exclude palliative measures moving forward. Await subclassification. 3. Advanced age/lack of primary care/cachexia/hypernatremia/hyperchloremia Complicates care, management, recovery and prognosis. Hypernatremia and hyperchloremia are likely secondary to fluid resuscitation. Code Visit Inpatient E&M: 58615 Subs Hosp L2
[2018-09-18 10:53] LABS: Uric Acid 3.5 mg/dL (2.6-6.0)
[2018-09-18] MEDS: 0.9% NaCl Peripheral Flush Adult/Peds IV ×2 (11:58→18:03)
--- NOTE | 2018-09-18 12:08 | NURSING ---
REPORT CALLED TO [facility]CE[facility] IN [facility]. MIRANDA DORADO
[2018-09-18] MEDS: Bupiv/Epi 0.5% Mpf 30 ML Vial (15:02)
--- NOTE | 2018-09-18 15:40 | RAD_ITS ---
STUDY: X-RAY CHEST REASON FOR EXAM: Female, 73 years old. Port placement. TECHNIQUE: Single AP portable view of the chest. COMPARISON: Comparison is made with prior study dated September 14, 2018. FINDINGS: EKG electrodes are seen. A right-sided portacatheter has been placed. The tip is in the right atrium. Since prior study, there has been progression of the bilateral pleural effusions with underlying infiltration and/or atelectasis worse on the left side. RAD/CXR for Line Placement IMPRESSION: The tip of the right jorge catheter is in the right atrium. Interval increase in size of the bilateral pleural effusions with bibasilar atelectasis and/or infiltrates worse on the left side. Electronically Signed: Chris Alfaro MD at 15:51 EST Tel [phone], Service support ,
--- NOTE | 2018-09-18 15:54 | PCM.OPRPT ---
Problem List (1) Encounter for adjustment or management of vascular access device Status: Acute (2) Mass of left axilla Status: Acute (3) Generalized lymphadenopathy Status: Acute Report of Operation Date of Procedure: 09/18/18 Pre-Operative Diagnosis: 1. Lymphadenopathy and possible lymphoma. 2. Left axillary skin lesion. 3. Need for vascular access port. Post-Operative Diagnosis: Same Surgery/Procedure Performed:: 1. Ultrasound and fluoroscopy guided right IJ chest port placement. 2. Left axillary skin lesion excision. 3. Right inguinal lymph node excisional biopsy Specimen's removed: 1. Left axillary mass. 2. Right inguinal lymph node Estimated Blood Loss (mL): Minimal Description of Procedure: After obtaining informed consent patient was brought back to the operating room MAC anesthesia was induced and the right chest and neck were prepped in normal sterile fashion. Ultrasound was used to evaluate both IJs and the right IJ was selected. Next, using a needle, the right IJ was accessed and a guidewire was passed on into the superior vena cava under fluoroscopy guidance. A small incision was made over the puncture site and the dilator introducer was placed over the guidewire. Next this was capped and the pocket was made for the port. 1% lidocaine with epinephrine was injected in the proposed port site. An incision was made with scalpel. Electrocautery was used to make a pocket under the skin and subcutaneous tissue. Hemostasis was obtained. Next, the catheter was tunneled up to the neck incision site and placed through the introducer. The peel-away introducer was removed and the position of the catheter was confirmed on fluoroscopy. Next, the catheter was trimmed and attached to the port with the locking device. Interrupted 2-0 Vicryl sutures were used to anchor the port to the chest wall and then the port was placed inside the pocket. The pocket was then flushed with saline and the port irrigated with saline. There was good blood return and the port flushed easily. The skin was closed with subcutaneous interrupted 3-0 Vicryl sutures and interrupted skin 3-0 nylon sutures. A single 3-0 Vicryl sutures placed under the skin at the neck incision site. The chest port was accessed with good blood flow and then flushed with heparin. Steri-Strips were placed as well as op sites. Next attention was paid to the left axilla. The patient was redraped. The patient had a large fungating pedunculated mass of the skin of the left axilla. This area was anesthetized with Marcaine and then a shallow skin incision was performed circumferentially. Next the mass was retracted inferiorly and the harmonic scalpel handpiece was used to take the mass at skin level. Care was taken to avoid any deeper structures. The dissection was very superficial. Next the skin was reapproximated with interrupted 3-0 nylon sutures. Hemostasis was good. Next attention was paid to the right groin. The right groin was prepped and draped in the usual sterile fashion. A marked incision site was injected with Marcaine. A small incision was made with a scalpel and electrocautery was used to deepen this to the fascia. The fascia was incised. This allowed for access to a very large inguinal lymph node. Using the harmonic scalpel a 1 cm x 1 cm x 1 cm parcel of tissue was taken from the lymph node. There was good hemostasis. Next the fascia was reapproximated with 2 [id number] 3-0 Vicryl sutures. Next the skin was closed with interrupted 3-0 Vicryl sutures as well as Dermabond. Patient tolerated procedure well, was taken to PACU in stable condition. Chest x-ray will be obtained. Patient will resume heparin in 6 hours. Grafts/Implants Used: 8 [place] [employer] - Admit VTE Documentation VTE Present on Admission: Yes VTE Mechan Device Prophylaxis: SCD's VTE Pharm Prophylaxis ordered?: Yes
[2018-09-18 20:25] LABS: Partial Thromboplast Time 29.4 Seconds (24.1-36.2)
[2018-09-18] MEDS: HEPARIN/D5w 25,000 UNITS 25,000 UNITS/250 ML IV.SOLN. 7 UNITS IV (21:30)
[2018-09-19] VITALS (8 sets, daily range): BP systolic 119–136; BP diastolic 67–73; PULSE 77–94; RESP 14–26; TEMP 36.7–37; O2SAT 91–94
[2018-09-19 04:13] LABS: Absolute Lymphocyte Count 0.51 X10^3/ul (0.83-4.51); Absolute Neutrophil Count 4.6 X10^3/uL (2.0-7.7); Basophil# 0.01 X10^3/uL; Basophil% 0.2 % (0-1); Differential Indicated SCAN CRITERIA MET; Eosinophil# 0.08 X10^3/uL; Eosinophils% 1.4 % (0-5); Hematocrit 31.7 % (37-47); Hemoglobin 10.1 g/dl (12.0-15.0); Lymphocyte # 0.51 X10^3/ul (4.0); Mean Corp Hgb Conc 31.9 g/gl (32-36); Mean Corpuscular Hgb 28.1 pg (27.0-32.0); Mean Corpuscular Volume 88.1 fL (81-99); Mean Platelet Vol. 10.2 fl (6.2-12.0); Monocyte# 0.46 X10^3/uL; Monocyte% 8.1 % (0-10); Neutrophil # 4.61 X10^3/uL (2.7-7.7); Neutrophil % 81.3 % (47-70); POSITIVE COUNT NO; POSITIVE DIFFERENTIAL YES; POSITIVE MORPHOLOGY NO; Platelet Count 234 K/mm3 (150-450); RBC Distribution Width CV 16.2 % (11.6-14.6); RBC Distribution Width SD 51.2 fl (35.1-43.9); White Blood Count 5.7 K/mm3 (4.4-11.0)
[2018-09-19 04:16] LABS: Partial Thromboplast Time 43.9 Seconds (24.1-36.2)
[2018-09-19 04:24] LABS: Anion Gap 7 (5-15); BUN 15 mg/dL (7-18); BUN/Creat Ratio 23.3 RATIO (10-20); Calcium,Total 7.8 mg/dL (8.5-10.1); Chloride 110 mmol/L (98-107); Creatinine, Serum 0.64 mg/dL (0.55-1.02); EST Glomerular Filtration Rate 96 mL/min (>60); Est Glom Filt Rate - Afr Amer 116 mL/min (>60); Estimated Creatinine Clearance 41.37 ml/min; Glucose 92 mg/dL (74-106); Potassium 4.2 mmol/L (3.5-5.1); Sodium Level 144 mmol/L (136-145)
[2018-09-19] MEDS: Heparin Injection (Vial) 5,000 UNIT/ML VIAL IV (04:30)
[2018-09-19 04:35] LABS: Differential Comment SCANNED
[2018-09-19] MEDS: Ipratropium/Albuterol Sulfate 3 ML AMPUL.NEB INHALATION ×2 (06:50→13:04)
--- NOTE | 2018-09-19 07:46 | PN.SURG_ITS ---
Patient Problems: Active and Suspected Problems (Last Updated 09/13/18 @ 14:06 by Kamryn Prince MD) Encounter for adjustment or management of vascular access device (Acute) Mass of left axilla (Acute) Subjective: Patient reports she is feeling short of breath. She is not having any pain in her surgical sites. - Physical Exam General: Alert, Oriented x3, Cooperative Neck: No JVD Lungs: Diminished Cardiovascular: Regular rate, Regular Rhythm Abdomen: Soft, Non Tender, Non-Distended Vital Signs Temp Pulse Resp BP Pulse Ox 98.6 F 88 24 H 136/73 H 91 09/19/18 02:15 09/19/18 06:50 09/19/18 06:50 09/19/18 02:15 09/19/18 06:50 Oxygen Flow Rate (L/min) [4] 4 Oxygen Flow Rate (L/min) [3] 4 Oxygen Flow Rate (L/min) [2] 4 Oxygen Flow Rate (L/min) [1 ( 4 Initial Baseline)] Oxygen Flow Rate (L/min) 3 Oxygen Delivery Method [4] Nasal Cannula Oxygen Delivery Method [3] Nasal Cannula Oxygen Delivery Method [2] Nasal Cannula Oxygen Delivery Method [1 ( Nasal Cannula Initial Baseline)] Oxygen Delivery Method Nasal Cannula Weight: 111 lb 8.862 oz Body Mass Index (BMI) 19.8 Intake and Output for Last 24 Hours 09/17/18 09/18/18 09/19/18 23:59 23:59 23:59 Intake Total 381.5 / 381.5 1211 / 1211 50 / 50 Balance 381.5 / 381.5 1211 / 1211 50 / 50 Laboratory Tests Past 24 Hrs 09/18/18 09/18/18 09/18/18 07:10 07:10 11:00 WBC RBC Hgb Hct MCV MCH MCHC RDW RDW Differential Plt Count MPV Immature Gran % (Auto) Neut % (Auto) Lymph % (Auto) [place] % (Auto) Eos % (Auto) Baso % (Auto) Absolute Neuts (auto) Absolute Lymphs (auto) Total Counted Differential Comment APTT Sodium Potassium Chloride Carbon Dioxide Anion Gap BUN Creatinine Estim Creat Clear Calc Est GFR (MDRD) Af Amer Est GFR (MDRD) Non-Af BUN/Creatinine Ratio Glucose Uric Acid 3.5 Calcium TSH 2.70 Hep Bs Antigen Pending Hep Bs Antibody Pending Hep B Core Total Ab Pending Hep B Core IgM Ab Pending Hepatitis Be Antibody Pending Hepatitis Be Antigen Pending Miscellaneous Test 09/18/18 09/18/18 09/19/18 13:10 20:05 03:50 WBC 5.7 RBC 3.60 L Hgb 10.1 L Hct 31.7 L MCV 88.1 MCH 28.1 MCHC 31.9 L RDW 16.2 H RDW Differential 51.2 H Plt Count 234 MPV 10.2 Immature Gran % (Auto) 0.000 Neut % (Auto) 81.3 H Lymph % (Auto) 9.0 L [place] % (Auto) 8.1 Eos % (Auto) 1.4 Baso % (Auto) 0.2 Absolute Neuts (auto) 4.6 Absolute Lymphs (auto) 0.51 L Total Counted Not Reportable Differential Comment SCANNED APTT 29.4 Sodium Potassium Chloride Carbon Dioxide Anion Gap BUN Creatinine Estim Creat Clear Calc Est GFR (MDRD) Af Amer Est GFR (MDRD) Non-Af BUN/Creatinine Ratio Glucose Uric Acid Calcium TSH Hep Bs Antigen Hep Bs Antibody Hep B Core Total Ab Hep B Core IgM Ab Hepatitis Be Antibody Hepatitis Be Antigen Miscellaneous Test Pending 09/19/18 09/19/18 03:50 03:50 WBC RBC Hgb Hct MCV MCH MCHC RDW RDW Differential Plt Count MPV Immature Gran % (Auto) Neut % (Auto) Lymph % (Auto) [place] % (Auto) Eos % (Auto) Baso % (Auto) Absolute Neuts (auto) Absolute Lymphs (auto) Total Counted Differential Comment APTT 43.9 H Sodium 144 Potassium 4.2 Chloride 110 H Carbon Dioxide 27.0 Anion Gap 7 BUN 15 Creatinine 0.64 Estim Creat Clear Calc 41.37 Est GFR (MDRD) Af Amer 116 Est GFR (MDRD) Non-Af 96 BUN/Creatinine Ratio 23.3 H Glucose 92 Uric Acid Calcium 7.8 L TSH Hep Bs Antigen Hep Bs Antibody Hep B Core Total Ab Hep B Core IgM Ab Hepatitis Be Antibody Hepatitis Be Antigen Miscellaneous Test Medical Necessity - Tobacco Use Smoking Status: Never smoker Assessment/Plan All Active Problems (Last Updated 09/13/18 @ 14:06 by Kamryn Prince MD) Encounter for adjustment or management of vascular access device (Acute) Mass of left axilla (Acute) Lymphoma (Acute) DVT, bilateral lower limbs (Acute) Pulmonary embolism (Acute) Generalized lymphadenopathy (Acute) Pleural effusion, bilateral (Acute) 73-year-old female status post chest port placement as well as lymph node biopsy with possible lymphoma 1. Patient has successfully placed right chest port yesterday. They are using this for her infusion. Her peripheral IVs may be removed. 2. I excised a mass from the left axilla which was exophytic through the skin. Her bandage is dry with some old blood. No signs of active bleeding. No swelling. 3. Patient's right groin appears soft and non-ecchymotic. Pathology pending. 4. Patient reports she is short of breath and on her chest x-ray yesterday her effusions appear to have increased. I discussed this with Dr. Norman and he thinks that she is still maintaining on a low amount of oxygen and if her oxygen requirements go up she may require a thoracentesis. From my standpoint it is okay to resume Eliquis as there is no bleeding from her surgical sites. Bi Garcia MD Pager: [facility] [address] [place] [address], [address] [place] [address] Office:
--- NOTE | 2018-09-19 08:43 | PCM.PROGNOTE ---
Patient Problems: Active and Suspected Problems (Last Updated 09/13/18 @ 14:06 by Kamryn Prince MD) Encounter for adjustment or management of vascular access device (Acute) Mass of left axilla (Acute) Subjective: Patient did well overnight. No acute issues were reported. Patient had reported increasing dyspnea with walking to the bathroom this morning. Patient has no symptoms at rest. Still on 3 L nasal cannula to maintain saturations. Patient did have lymph node resection yesterday and tolerated well. Objective: Chest x-ray shows slightly worsening bilateral effusions. - Physical Exam General: Alert, Oriented x3, Cooperative, No apparent distress, - - Cachectic. No conversational dyspnea. HEENT: Atraumatic, PERRLA, EOMI, Normocephalic, - - No scleral icterus or injection noted. Oral: Moist Mucosa, No Gingival or Mucosal Lesions/ Ulcerations Neck: Supple, No JVD, No Nodes Lungs: No rhonchi, No wheeze, No rales, Diminished - Left greater than right. Dullness to percussion., - - Symmetric expansion. Port noted in right chest is clean, dry and intact. Cardiovascular: Regular rate, Regular Rhythm, Normal S1, Normal S2, No murmurs, No rub noted, No Gallop Abdomen: Bowel Sounds Present, Soft, Non Tender, Non-Distended Extremities: No clubbing, No cyanosis, No edema, Capillary Refill Less than 3 Seconds Skin: No rashes, No breakdown Musculoskeletal: No Tenderness to Palpation of Joints or Extremities Lymphatic: No Cervical, Supraclavicular, or Inguinal Adenopathy Neurological: Cranial nerves II-XII grossly intact, Neuro grossly intact, Motor Exam 5/5 strength throughout Psych/Mental Status: Alert and oriented to time, place, person, mood and affect Vital Signs Temp Pulse Resp BP Pulse Ox 37.0 C 90 24 H 136/73 H 91 09/19/18 02:15 09/19/18 07:22 09/19/18 06:50 09/19/18 02:15 09/19/18 06:50 Oxygen Flow Rate (L/min) [4] 4 Oxygen Flow Rate (L/min) [3] 4 Oxygen Flow Rate (L/min) [2] 4 Oxygen Flow Rate (L/min) [1 ( 4 Initial Baseline)] Oxygen Flow Rate (L/min) 3 Oxygen Delivery Method [4] Nasal Cannula Oxygen Delivery Method [3] Nasal Cannula Oxygen Delivery Method [2] Nasal Cannula Oxygen Delivery Method [1 ( Nasal Cannula Initial Baseline)] Oxygen Delivery Method Nasal Cannula Weight: 50.6 kg Body Mass Index (BMI) 19.8 Intake and Output for Last 24 Hours 09/17/18 09/18/18 09/19/18 23:59 23:59 23:59 Intake Total 381.5 / 381.5 1211 / 1211 50 / 50 Balance 381.5 / 381.5 1211 / 1211 50 / 50 Laboratory Tests Past 24 Hrs 09/18/18 09/18/18 09/18/18 07:10 11:00 13:10 WBC RBC Hgb Hct MCV MCH MCHC RDW RDW Differential Plt Count MPV Immature Gran % (Auto) Neut % (Auto) Lymph % (Auto) Traill % (Auto) Eos % (Auto) Baso % (Auto) Absolute Neuts (auto) Absolute Lymphs (auto) Total Counted Differential Comment APTT Sodium Potassium Chloride Carbon Dioxide Anion Gap BUN Creatinine Estim Creat Clear Calc Est GFR (MDRD) Af Amer Est GFR (MDRD) Non-Af BUN/Creatinine Ratio Glucose Uric Acid 3.5 Calcium Hep Bs Antigen Pending Hep Bs Antibody Pending Hep B Core Total Ab Pending Hep B Core IgM Ab Pending Hepatitis Be Antibody Pending Hepatitis Be Antigen Pending Miscellaneous Test Pending 09/18/18 09/19/18 09/19/18 20:05 03:50 03:50 WBC 5.7 RBC 3.60 L Hgb 10.1 L Hct 31.7 L MCV 88.1 MCH 28.1 MCHC 31.9 L RDW 16.2 H RDW Differential 51.2 H Plt Count 234 MPV 10.2 Immature Gran % (Auto) 0.000 Neut % (Auto) 81.3 H Lymph % (Auto) 9.0 L Traill % (Auto) 8.1 Eos % (Auto) 1.4 Baso % (Auto) 0.2 Absolute Neuts (auto) 4.6 Absolute Lymphs (auto) 0.51 L Total Counted Not Reportable Differential Comment SCANNED APTT 29.4 Sodium 144 Potassium 4.2 Chloride 110 H Carbon Dioxide 27.0 Anion Gap 7 BUN 15 Creatinine 0.64 Estim Creat Clear Calc 41.37 Est GFR (MDRD) Af Amer 116 Est GFR (MDRD) Non-Af 96 BUN/Creatinine Ratio 23.3 H Glucose 92 Uric Acid Calcium 7.8 L Hep Bs Antigen Hep Bs Antibody Hep B Core Total Ab Hep B Core IgM Ab Hepatitis Be Antibody Hepatitis Be Antigen Miscellaneous Test 09/19/18 03:50 WBC RBC Hgb Hct MCV MCH MCHC RDW RDW Differential Plt Count MPV Immature Gran % (Auto) Neut % (Auto) Lymph % (Auto) Traill % (Auto) Eos % (Auto) Baso % (Auto) Absolute Neuts (auto) Absolute Lymphs (auto) Total Counted Differential Comment APTT 43.9 H Sodium Potassium Chloride Carbon Dioxide Anion Gap BUN Creatinine Estim Creat Clear Calc Est GFR (MDRD) Af Amer Est GFR (MDRD) Non-Af BUN/Creatinine Ratio Glucose Uric Acid Calcium Hep Bs Antigen Hep Bs Antibody Hep B Core Total Ab Hep B Core IgM Ab Hepatitis Be Antibody Hepatitis Be Antigen Miscellaneous Test Clinical Impression(s) from Imaging Studies Chest X-Ray 09/18/18 15:40 IMPRESSION: The tip of the right jorge catheter is in the right atrium. Interval increase in size of the bilateral pleural effusions with bibasilar atelectasis and/or infiltrates worse on the left side. Electronically Signed: Chris Alfaro MD at 15:51 EST Tel [phone], Service support , Medical Necessity - Tobacco Use Smoking Status: Never smoker Assessment/Plan All Active Problems (Last Updated 09/13/18 @ 14:06 by Kamryn Prince MD) Encounter for adjustment or management of vascular access device (Acute) Mass of left axilla (Acute) Lymphoma (Acute) DVT, bilateral lower limbs (Acute) Pulmonary embolism (Acute) Generalized lymphadenopathy (Acute) Pleural effusion, bilateral (Acute) RECOMMENDATIONS: 1. Walking oximetry prior to discharge 2. Okay to transition to Eliquis from my perspective 3. Await biopsy results 4. Increase activity as tolerated 5. Okay to go to TCU from my perspective IMPRESSIONS: 1. Acute hypoxic respiratory failure secondary to bilateral pleural effusions and PE Patient has come back positive for B-cell lymphoma. Subclassification is not able to be obtained secondary to lack of tissue. Chest x-ray shows worsening of bilateral pleural effusions, but this would be expected given patient has not received any chemotherapy. Would hold off on thoracentesis until patient starts to have symptoms at rest or increased oxygen demands. It is clear that this is secondary to the lymphoma and will not improve until treatment options are explored. 2. B-cell lymphoma Patient is wishing to be aggressive at this time until a diagnosis can be made. If prognosis is poor, cannot exclude palliative measures moving forward. Await subclassification. 3. Advanced age/lack of primary care/cachexia/hypernatremia/hyperchloremia Complicates care, management, recovery and prognosis. Hypernatremia and hyperchloremia are likely secondary to fluid resuscitation. Code Visit Inpatient E&M: 12757 Subs Hosp L2
--- NOTE | 2018-09-19 08:51 | PCM.TXEXTCAR ---
- Diet 09/18/18 15:43 Diet: Regular Diet Is pt able to select menu?: Yes - Routine Orders/Code Status O2 Liters per Minute: 3 O2 Frequency: Continuous Keep PO Greater than or Equal to (%): 92 - Wound(s) L lower back- thoracentesis site Wound Type: Puncture rt neck Wound Type: Puncture Dressing Change: steristrip rt chest port placement Wound Type: Surgical Incision Dressing Change: Dry Sterile Dressing lt axillia area Wound Type: Surgical Incision Dressing Change: Dry Sterile Dressing rt upper thigh Wound Type: Surgical Incision Dressing Change: dermabond - Suggestions for Active Care Change Position every (hours): 3 Hours to sit in a chair: 2 Times a day to sit in chair: 3 - Therapies Weight Bearing: Weight bearing as tolerated Physical Therapy: Eval and Treat Occupational Therapy: Eval and Treat - Problem/Diagnosis (1) Generalized lymphadenopathy Status: Acute Current Visit: No (2) Pleural effusion, bilateral Status: Acute Current Visit: No (3) IBS (irritable bowel syndrome) Status: Chronic Comment: controlled with diet Current Visit: No (4) History of hyperthyroidism Status: Chronic Current Visit: No - Allergies/Procedures Done in Hospital Allergies/Adverse Reactions: Allergies No Known Allergies Allergy (Verified 09/13/18 11:54) - Type of Care/Length of Stay Estimated LOS: Convalescent Care Less Than 30 days Type of Care Needed: Skilled Rehab Potential: Fair Prognosis: Fair - Additional Orders/Day of Discharge H&P will serve as current which was dated: 09/13/18 Day of Discharge: 09/19/18 - Dietary and Speech Recommendations Dietitian Recommendations/Changes: Suggest liberal regular diet with po supplements at meals and medpass as diet resumes after surgery. Consider appetite stimulant as indicated. - Follow Up Care Primary Care Physician: Mikey Diamond MD [Primary Care Provider] - Please follow up with your Primary Care Physician in: 2 week. Please Follow Up With: Juani Berger MD When: 3-4 days. Please call his office.
[2018-09-19] MEDS: Furosemide 20 MG Tablet PO (11:12)
[2018-09-19] MEDS: APIXABAN 5 MG TABLET 10 MG PO (11:12)
--- NOTE | 2018-09-19 12:41 | PCM.DC.SUM ---
Discharge Date and Diagnosis - Problem List Patient Problems: Active and Suspected Problems (Last Updated 09/13/18 @ 14:06 by Kamryn Prince MD) Encounter for adjustment or management of vascular access device (Acute) Mass of left axilla (Acute) Date of Admission: 09/13/18 Date of Discharge: 09/19/18 - Primary Discharge Diagnosis Active and Suspected Problems (Last Updated 09/13/18 @ 14:06 by Kamryn Prince MD) #1 acute bilateral pulmonary emboli. #2 acute bilateral DVTs of the lower extremities. #3 acute on chronic hypoxic respiratory failure. #4 bilateral pleural effusion, status post left thoracentesis. #5 generalized lymphadenopathy/working diagnosis of lymphoma, status post right inguinal excisional biopsy. - Secondary Discharge Diagnosis Chronic Problems (Last Updated 09/13/18 @ 14:06 by Kamryn Prince MD) Weight loss, non-intentional (Chronic) Pelvic mass in female (Chronic) IBS (irritable bowel syndrome) (Chronic) controlled with diet History of hyperthyroidism (Chronic) Hospital Course and Treatment Imaging Results: Clinical Impression(s) from Imaging Studies Chest X-Ray 09/13/18 12:05 IMPRESSION: Persistent large left effusion. Persistent moderate right effusion. Electronically Signed: Selene Caro MD at 13:26 EST Tel , Service support , Chest CTA 09/13/18 12:46 IMPRESSION: Findings are positive for bilateral pulmonary embolism. Large left effusion. Large right effusion. Lymphadenopathy. Abdominal ascites. Focal density in T12 focal sclerotic density vertebral body T10 suspicious for osteoblastic metastasis. N.B. : The above information has been verbally conveyed by Selene Caro MD to Christian Lopez [phone], [facility], on 09/13/2018 14:31:10 (ET). Electronically Signed: Selene Caro MD at 14:20 EST Tel , Service support , ADDENDUM: 09/13/18 1438 Thoracentesis Ultrasound 09/14/18 08:00 IMPRESSION: Ultrasound-guided left thoracentesis. Electronically Signed: Chris Alfaro MD at 15:36 EST Tel [phone], Service support , Chest X-Ray 09/14/18 15:08 IMPRESSION: Status post left thoracentesis. There is no evidence of pneumothorax. Small bilateral pleural effusions with underlying atelectasis. Electronically Signed: Chris Alfaro MD at 8:33 EST Tel [phone], Service support , Chest X-Ray 09/18/18 15:40 IMPRESSION: The tip of the right jorge catheter is in the right atrium. Interval increase in size of the bilateral pleural effusions with bibasilar atelectasis and/or infiltrates worse on the left side. Electronically Signed: Chris Alfaro MD at 15:51 EST Tel [phone], Service support , Dr. Norman, pulmonology/critical care. Dr. Berger, oncology. Dr. santacruz, general surgery. Operations: None Procedures: Thoracentesis, - - Right inguinal excisional lymph node biopsy. Left axillary skin lesion excision. Placement of right internal jugular Port-A-Cath. Summary of Care Provided: Patient seen and examined on the day of discharge and appeared to be stable to be discharged to TCU. She states that her breathing is a little bit worse than compared to yesterday but she remained on 3 L of oxygen. Her other vital signs are stable. This is a 73 years old female patient presented to the ED because of worsening shortness of breath, weakness and palpitation, found to have acute bilateral pulmonary emboli complicated by acute on chronic hypoxic respiratory failure. #1 acute bilateral pulmonary emboli: Treated with IV heparin drip. Initially, patient was treated in the ICU with IV heparin drip. She was found to have acute bilateral DVT as well which are likely the precipitating factor of the acute bilateral PEs. Patient has been undergoing workup for cancer which is probably lymphoma due to generalized lymphadenopathy. Patient remained on the IV heparin drip for 5 days. On the day of discharge, IV heparin discontinued and she was started on Eliquis loading dose 10 mg p.o. twice daily. #2 acute bilateral DVTs of the lower extremities: Again, treated with IV heparin drip as above. Venous Doppler revealed acute DVT of the right femoral, popliteal, tibioperoneal trunk, gastrocnemius, posterior tibial, peroneal and soleal veins as well as left popliteal, gastrocnemius and soleus veins. She was discharged to TCU on loading dose of Eliquis for 7 days and then maintenance dose of 5 mg p.o. twice daily. #3 acute on chronic hypoxic respiratory failure: Multifactorial secondary to bilateral pulmonary emboli as well as pleural effusions. Status post left thoracentesis, 1500 cc of fluids taken out. Initially, patient required BiPAP and she was up to 6 L of oxygen. After thoracentesis and treatment of the multiple PEs, her oxygenation improved and we were able to take her down to 3 L. Upon discharge, patient maintained on 3 L. #4 bilateral pleural effusion: Status post repeat left thoracentesis. Pleural fluid cytology again negative for malignant cells. During the last admission, she underwent left thoracentesis, found to have lymphocytic exudative effusion that was negative for malignant cells as well. Repeat chest x-ray done after she had a Port-A-Cath and revealed increasing bilateral pleural effusion but her respiratory status remains stable. She remains on 3 L of oxygen. There was no indication to do a repeat thoracentesis at this time. #5 generalized lymphadenopathy/working diagnosis of lymphoma: Status post right inguinal lymph node biopsy that was done on September 11, 2018, and reportedly, that biopsy revealed lymphoma but final diagnosis cannot be made because of not enough tissue for diagnosis. Patient underwent repeat right inguinal lymph node excisional biopsy and at the time of discharge, the biopsy results were pending. Also, she underwent placement of right internal jugular Port-A-Cath to start her on chemotherapy once we have the biopsy results and diagnosis of lymphoma confirmed and specified. Patient discharged to TCU in a stable medical condition, discharged on Eliquis for anticoagulation, discharged on oxygen at 3 L, started on small dose of Lasix, plan to follow-up with oncology in the next 3-4 days when they get the results of the lymph node biopsy, recommended follow-up with PCP in 2 weeks. This note was generated with [employer]got[employer] software. It may contain incorrect words, spelling, and punctuation that were not noted in checking the note before signing. Patient Problems: Active and Suspected Problems (Last Updated 09/13/18 @ 14:06 by Kamryn Prince MD) Encounter for adjustment or management of vascular access device (Acute) Mass of left axilla (Acute) - Physical Exam General: Alert, Oriented x3, Cooperative HEENT: Atraumatic, PERRLA, EOMI, Normocephalic Oral: Moist Mucosa, No Gingival or Mucosal Lesions/ Ulcerations Neck: Supple, No JVD, Negative Carotid Bruits, Trachea Midline, Thyroid Normal Size and Texture Lungs: Clear to auscultation, No wheeze, No rales, Diminished, Rhonchi, - - Decreased breath sounds at the bases, more on the left base, scattered rhonchi. Cardiovascular: Regular rate, Regular Rhythm, Normal S1, Normal S2, PMI Normal Abdomen: Bowel Sounds Present, Soft, Non Tender, Non-Distended, No Hepato-splenomegaly Extremities: No clubbing, No cyanosis, Edema Skin: No rashes, No breakdown Lymphatic: No Cervical, Supraclavicular, or Inguinal Adenopathy Neurological: Cranial nerves II-XII grossly intact, Motor Exam 5/5 strength throughout Psych/Mental Status: Normal Affect, Appropriate Vital Signs Temp Pulse Resp BP Pulse Ox 98.1 F 89 17 119/73 92 09/19/18 08:15 09/19/18 08:15 09/19/18 08:15 09/19/18 08:15 09/19/18 08:15 Oxygen Flow Rate (L/min) [4] 4 Oxygen Flow Rate (L/min) [3] 4 Oxygen Flow Rate (L/min) [2] 4 Oxygen Flow Rate (L/min) [1 ( 4 Initial Baseline)] Oxygen Flow Rate (L/min) 2.5 Oxygen Delivery Method [4] Nasal Cannula Oxygen Delivery Method [3] Nasal Cannula Oxygen Delivery Method [2] Nasal Cannula Oxygen Delivery Method [1 ( Nasal Cannula Initial Baseline)] Oxygen Delivery Method Nasal Cannula Weight: 111 lb 8.862 oz Body Mass Index (BMI) 19.8 Intake and Output for Last 24 Hours 09/17/18 09/18/18 09/19/18 23:59 23:59 23:59 Intake Total 381.5 / 381.5 1211 / 1211 400 / 400 Balance 381.5 / 381.5 1211 / 1211 400 / 400 Laboratory Tests Past 24 Hrs 09/18/18 09/18/18 09/19/18 13:10 20:05 03:50 WBC 5.7 RBC 3.60 L Hgb 10.1 L Hct 31.7 L MCV 88.1 MCH 28.1 MCHC 31.9 L RDW 16.2 H RDW Differential 51.2 H Plt Count 234 MPV 10.2 Immature Gran % (Auto) 0.000 Neut % (Auto) 81.3 H Lymph % (Auto) 9.0 L Haakon % (Auto) 8.1 Eos % (Auto) 1.4 Baso % (Auto) 0.2 Absolute Neuts (auto) 4.6 Absolute Lymphs (auto) 0.51 L Total Counted Not Reportable Differential Comment SCANNED APTT 29.4 Sodium Potassium Chloride Carbon Dioxide Anion Gap BUN Creatinine Estim Creat Clear Calc Est GFR (MDRD) Af Amer Est GFR (MDRD) Non-Af BUN/Creatinine Ratio Glucose Calcium Miscellaneous Test Pending 09/19/18 09/19/18 03:50 03:50 WBC RBC Hgb Hct MCV MCH MCHC RDW RDW Differential Plt Count MPV Immature Gran % (Auto) Neut % (Auto) Lymph % (Auto) Haakon % (Auto) Eos % (Auto) Baso % (Auto) Absolute Neuts (auto) Absolute Lymphs (auto) Total Counted Differential Comment APTT 43.9 H Sodium 144 Potassium 4.2 Chloride 110 H Carbon Dioxide 27.0 Anion Gap 7 BUN 15 Creatinine 0.64 Estim Creat Clear Calc 41.37 Est GFR (MDRD) Af Amer 116 Est GFR (MDRD) Non-Af 96 BUN/Creatinine Ratio 23.3 H Glucose 92 Calcium 7.8 L Miscellaneous Test Home Medications: Medications to take at Discharge Acetaminophen [Tylenol] 325 mg PO PRN PRN 08/31/18 Albuterol Inhaler [Ventolin Hfa] 1 - 2 puff INHALATION Q4H PRN PRN #1 inhaler 09/02/18 Apixaban [Eliquis] 5 mg PO BID #90 tablet 09/16/18 Albuterol Aerosols [Ventolin Aerosols] 2.5 mg INHALATION Q4H PRN PRN #1 vial.neb. 09/19/18 Apixaban [Eliquis] 10 mg PO BID #1 tablet 09/19/18 Furosemide [Lasix] 20 mg PO DAILY #1 tablet 09/19/18 Following Prescrptions Were Given to Patient: Albuterol Aerosols [Ventolin Aerosols] 2.5 mg INHALATION Q4H PRN PRN #1 vial.neb. PRN Reason: Shortness of breath, wheezing Furosemide [Lasix] 20 mg PO DAILY #1 tablet Apixaban [Eliquis] 5 mg PO BID #90 tablet Apixaban [Eliquis] 10 mg PO BID #1 tablet Primary Care Physician: Mikey Diamond MD [Primary Care Provider] - Please follow up with your Primary Care Physician in: 2 week. Please Follow Up With: Juani Berger MD When: 3-4 days. Please call his office. Disposition: Care Home facility Minutes spent on discharge:: 36 Patient Condition:: Stable Medical Necessity - Tobacco Use Smoking Status: Never smoker Meaningful Use Info Meaningful Use Diagnoses (Choose all that apply): None applicable Code Visit Inpatient E&M: 72974 Disch Hosp
--- NOTE | 2018-09-19 12:44 | DS.PCM_ITS ---
Discharge Date and Diagnosis - Problem List Patient Problems: Active and Suspected Problems (Last Updated 09/13/18 @ 14:06 by Kamryn Prince MD) Encounter for adjustment or management of vascular access device (Acute) Mass of left axilla (Acute) Date of Admission: 09/13/18 Date of Discharge: 09/19/18 - Primary Discharge Diagnosis Active and Suspected Problems (Last Updated 09/13/18 @ 14:06 by Kamryn Prince MD) #1 acute bilateral pulmonary emboli. #2 acute bilateral DVTs of the lower extremities. #3 acute on chronic hypoxic respiratory failure. #4 bilateral pleural effusion, status post left thoracentesis. #5 generalized lymphadenopathy/working diagnosis of lymphoma, status post right inguinal excisional biopsy. - Secondary Discharge Diagnosis Chronic Problems (Last Updated 09/13/18 @ 14:06 by Kamryn Prince MD) Weight loss, non-intentional (Chronic) Pelvic mass in female (Chronic) IBS (irritable bowel syndrome) (Chronic) controlled with diet History of hyperthyroidism (Chronic) Hospital Course and Treatment Imaging Results: Clinical Impression(s) from Imaging Studies Chest X-Ray 09/13/18 12:05 IMPRESSION: Persistent large left effusion. Persistent moderate right effusion. Electronically Signed: Selene Caro MD at 13:26 EST Tel , Service support , Chest CTA 09/13/18 12:46 IMPRESSION: Findings are positive for bilateral pulmonary embolism. Large left effusion. Large right effusion. Lymphadenopathy. Abdominal ascites. Focal density in T12 focal sclerotic density vertebral body T10 suspicious for osteoblastic metastasis. N.B. : The above information has been verbally conveyed by Selene Caro MD to Christian Lopez [phone], [facility], on 09/13/2018 14:31:10 (ET). Electronically Signed: Selene Caro MD at 14:20 EST Tel , Service support , ADDENDUM: 09/13/18 1438 Thoracentesis Ultrasound 09/14/18 08:00 IMPRESSION: Ultrasound-guided left thoracentesis. Electronically Signed: Chris Alfaro MD at 15:36 EST Tel [phone], Service support , Chest X-Ray 09/14/18 15:08 IMPRESSION: Status post left thoracentesis. There is no evidence of pneumothorax. Small bilateral pleural effusions with underlying atelectasis. Electronically Signed: Chris Alfaro MD at 8:33 EST Tel [phone], Service support , Chest X-Ray 09/18/18 15:40 IMPRESSION: The tip of the right jorge catheter is in the right atrium. Interval increase in size of the bilateral pleural effusions with bibasilar atelectasis and/or infiltrates worse on the left side. Electronically Signed: Chris Alfaro MD at 15:51 EST Tel [phone], Service support , Dr. Norman, pulmonology/critical care. Dr. Berger, oncology. Dr. santacruz, general surgery. Operations: None Procedures: Thoracentesis, - - Right inguinal excisional lymph node biopsy. Left axillary skin lesion excision. Placement of right internal jugular Port-A-Cath. Summary of Care Provided: Patient seen and examined on the day of discharge and appeared to be stable to be discharged to TCU. She states that her breathing is a little bit worse than compared to yesterday but she remained on 3 L of oxygen. Her other vital signs are stable. This is a 73 years old female patient presented to the ED because of worsening shortness of breath, weakness and palpitation, found to have acute bilateral pulmonary emboli complicated by acute on chronic hypoxic respiratory failure. #1 acute bilateral pulmonary emboli: Treated with IV heparin drip. Initially, patient was treated in the ICU with IV heparin drip. She was found to have acute bilateral DVT as well which are likely the precipitating factor of the acute bilateral PEs. Patient has been undergoing workup for cancer which is probably lymphoma due to generalized lymphadenopathy. Patient remained on the IV heparin drip for 5 days. On the day of discharge, IV heparin discontinued and she was started on Eliquis loading dose 10 mg p.o. twice daily. #2 acute bilateral DVTs of the lower extremities: Again, treated with IV heparin drip as above. Venous Doppler revealed acute DVT of the right femoral, poplite al, tibioperoneal trunk, gastrocnemius, posterior tibial, peroneal and soleal veins as well as left popliteal, gastrocnemius and soleus veins. She was discharged to TCU on loading dose of Eliquis for 7 days and then maintenance dose of 5 mg p.o. twice daily. #3 acute on chronic hypoxic respiratory failure: Multifactorial secondary to bilateral pulmonary emboli as well as pleural effusions. Status post left thoracentesis, 1500 cc of fluids taken out. Initially, patient required BiPAP and she was up to 6 L of oxygen. After thoracentesis and treatment of the multiple PEs, her oxygenation improved and we were able to take her down to 3 L. Upon discharge, patient maintained on 3 L. #4 bilateral pleural effusion: Status post repeat left thoracentesis. Pleural fluid cytology again negative for malignant cells. During the last admission, she underwent left thoracentesis, found to have lymphocytic exudative effusion that was negative for malignant cells as well. Repeat chest x-ray done after she had a Port-A-Cath and revealed increasing bilateral pleural effusion but her respiratory status remains stable. She remains on 3 L of oxygen. There was no indication to do a repeat thoracentesis at this time. #5 generalized lymphadenopathy/working diagnosis of lymphoma: Status post right inguinal lymph node biopsy that was done on September 11, 2018, and reportedly, that biopsy revealed lymphoma but final diagnosis cannot be made because of not enough tissue for diagnosis. Patient underwent repeat right inguinal lymph node excisional biopsy and at the time of discharge, the biopsy results were pending. Also, she underwent placement of right internal jugular Port-A-Cath to start her on chemotherapy once we have the biopsy results and diagnosis of lymphoma confirmed and specified. Patient discharged to TCU in a stable medical condition, discharged on Eliquis for anticoagulation, discharged on oxygen at 3 L, started on small dose of Lasix, plan to follow-up with oncology in the next 3-4 days when they get the results of the lymph node biopsy, recommended follow-up with PCP in 2 weeks. This note was generated with [employer] software. It may contain incorrect words, spelling, and punctuation that were not noted in checking the note before signing. Patient Problems: Active and Suspected Problems (Last Updated 09/13/18 @ 14:06 by Kamryn Prince MD) Encounter for adjustment or management of vascular access device (Acute) Mass of left axilla (Acute) - Physical Exam General: Alert, Oriented x3, Cooperative HEENT: Atraumatic, PERRLA, EOMI, Normocephalic Oral: Moist Mucosa, No Gingival or Mucosal Lesions/ Ulcerations Neck: Supple, No JVD, Negative Carotid Bruits, Trachea Midline, Thyroid Normal Size and Texture Lungs: Clear to auscultation, No wheeze, No rales, Diminished, Rhonchi, - - Decreased breath sounds at the bases, more on the left base, scattered rhonchi. Cardiovascular: Regular rate, Regular Rhythm, Normal S1, Normal S2, PMI Normal Abdomen: Bowel Sounds Present, Soft, Non Tender, Non-Distended, No Hepato- splenomegaly Extremities: No clubbing, No cyanosis, Edema Skin: No rashes, No breakdown Lymphatic: No Cervical, Supraclavicular, or Inguinal Adenopathy Neurological: Cranial nerves II-XII grossly intact, Motor Exam 5/5 strength throughout Psych/Mental Status: Normal Affect, Appropriate Vital Signs Temp Pulse Resp BP Pulse Ox 98.1 F 89 17 119/73 92 09/19/18 08:15 09/19/18 08:15 09/19/18 08:15 09/19/18 08:15 09/19/18 08:15 Oxygen Flow Rate (L/min) [4] 4 Oxygen Flow Rate (L/min) [3] 4 Oxygen Flow Rate (L/min) [2] 4 Oxygen Flow Rate (L/min) [1 ( 4 Initial Baseline)] Oxygen Flow Rate (L/min) 2.5 Oxygen Delivery Method [4] Nasal Cannula Oxygen Delivery Method [3] Nasal Cannula Oxygen Delivery Method [2] Nasal Cannula Oxygen Delivery Method [1 ( Nasal Cannula Initial Baseline)] Oxygen Delivery Method Nasal Cannula Weight: 111 lb 8.862 oz Body Mass Index (BMI) 19.8 Intake and Output for Last 24 Hours 09/17/18 09/18/18 09/19/18 23:59 23:59 23:59 Intake Total 381.5 / 381.5 1211 / 1211 400 / 400 Balance 381.5 / 381.5 1211 / 1211 400 / 400 Laboratory Tests Past 24 Hrs 09/18/18 09/18/18 09/19/18 13:10 20:05 03:50 WBC 5.7 RBC 3.60 L Hgb 10.1 L Hct 31.7 L MCV 88.1 MCH 28.1 MCHC 31.9 L RDW 16.2 H RDW Differential 51.2 H Plt Count 234 MPV 10.2 Immature Gran % (Auto) 0.000 Neut % (Auto) 81.3 H Lymph % (Auto) 9.0 L Knott % (Auto) 8.1 Eos % (Auto) 1.4 Baso % (Auto) 0.2 Absolute Neuts (auto) 4.6 Absolute Lymphs (auto) 0.51 L Total Counted Not Reportable Differential Comment SCANNED APTT 29.4 Sodium Potassium Chloride Carbon Dioxide Anion Gap BUN Creatinine Estim Creat Clear Calc Est GFR (MDRD) Af Amer Est GFR (MDRD) Non-Af BUN/Creatinine Ratio Glucose Calcium Miscellaneous Test Pending 09/19/18 09/19/18 03:50 03:50 WBC RBC Hgb Hct MCV MCH MCHC RDW RDW Differential Plt Count MPV Immature Gran % (Auto) Neut % (Auto) Lymph % (Auto) Knott % (Auto) Eos % (Auto) Baso % (Auto) Absolute Neuts (auto) Absolute Lymphs (auto) Total Counted Differential Comment APTT 43.9 H Sodium 144 Potassium 4.2 Chloride 110 H Carbon Dioxide 27.0 Anion Gap 7 BUN 15 Creatinine 0.64 Estim Creat Clear Calc 41.37 Est GFR (MDRD) Af Amer 116 Est GFR (MDRD) Non-Af 96 BUN/Creatinine Ratio 23.3 H Glucose 92 Calcium 7.8 L Miscellaneous Test Home Medications: Medications to take at Discharge Acetaminophen [Tylenol] 325 mg PO PRN PRN 08/31/18 Albuterol Inhaler [Ventolin Hfa] 1 - 2 puff INHALATION Q4H PRN PRN #1 inhaler 09/02/18 Apixaban [Eliquis] 5 mg PO BID #90 tablet 09/16/18 Albuterol Aerosols [Ventolin Aerosols] 2.5 mg INHALATION Q4H PRN PRN #1 vial.neb. 09/19/18 Apixaban [Eliquis] 10 mg PO BID #1 tablet 09/19/18 Furosemide [Lasix] 20 mg PO DAILY #1 tablet 09/19/18 Following Prescrptions Were Given to Patient: Albuterol Aerosols [Ventolin Aerosols] 2.5 mg INHALATION Q4H PRN PRN #1 vial.neb. PRN Reason: Shortness of breath, wheezing Furosemide [Lasix] 20 mg PO DAILY #1 tablet Apixaban [Eliquis] 5 mg PO BID #90 tablet Apixaban [Eliquis] 10 mg PO BID #1 tablet Primary Care Physician: Mikey Diamond MD [Primary Care Provider] - Please follow up with your Primary Care Physician in: 2 week. Please Follow Up With: Juani Berger MD When: 3-4 days. Please call his office. Disposition: Jail facility Minutes spent on discharge:: 36 Patient Condition:: Stable Medical Necessity - Tobacco Use Smoking Status: Never smoker Meaningful Use Info Meaningful Use Diagnoses (Choose all that apply): None applicable Code Visit Inpatient E&M: 40125 Disch Hosp
[2018-09-19] MEDS: 0.9% NaCl Peripheral Flush Adult/Peds IV (13:39)
[2018-09-21 16:07] LABS: HEPATITIS B SURFACE AG Negative (Negative); Hepatitis B Core AB IgM Negative (Negative); Hepatitis B Core Ab Total Negative (Negative); Hepatitis Be Ab Negative (Negative); Hepatitis Be Ag Negative (Negative); Hepatitis C Ab <0.1 s/co ratio (0.0-0.9)
[2018-09-22 10:27] LABS: Hep B Surface Antibodies Non Reactive (.)
== END 2018-09-19 14:13 | disposition skilled nursing facility (03) | DRG 981 ==
LOC: ED 12:08 → ICU 21:02 → PCU 09-15 14:31
PROVIDERS: Internal Medicine Critical Care Medicine; Internal Medicine Hematology & Oncology; Surgery; Admitting Provider Hospitalist; Emergency Provider Emergency Medicine; Family Provider Internal Medicine; PCP Internal Medicine; Referring Provider Hospitalist; Visit Provider Hospitalist
PROC: 0JH60WZ Insertion of Totally Implantable Vascular Access Device into Chest Subcutaneous Tissue and Fascia, Open Approach (ICD-10-PCS; 2018-09-18 12:55)
DX: I26.99 Other pulmonary embolism without acute cor pulmonale (principal); J96.21 Acute and chronic respiratory failure with hypoxia; I82.411 Acute embolism and thrombosis of right femoral vein; I82.441 Acute embolism and thrombosis of right tibial vein; I82.433 Acute embolism and thrombosis of popliteal vein, bilateral; I82.4Z3 Acute embolism and thrombosis of unspecified deep veins of distal lower extremity, bilateral; J90 Pleural effusion, not elsewhere classified; C85.10 Unspecified B-cell lymphoma, unspecified site; R64 Cachexia; Z68.1 Body mass index [BMI] 19.9 or less, adult; K58.9 Irritable bowel syndrome, unspecified; Z99.81 Dependence on supplemental oxygen; L98.9 Disorder of the skin and subcutaneous tissue, unspecified; R63.4 Abnormal weight loss
CPT/HCPCS: 32555; 36415; 71045; 71046; 71275; 74177; 77001; 80048; 82803; 84443; 84484; 84550; 85025; 85027; 85610; 85730; 86704; 86705; 86706; 86707; 86803; 87340; 87350; 88108; 88305; 88307; 88313; 88341; 88342; 93005; 93970; 94002; 94003; 94640; 97162; 97165; 97530; 97535; 97802; 99283; Q9967; A4216; C1788; J2405

== ENCOUNTER 2018-09-19 14:22 | Inpatient (IN) | payer MEDICARE, OTHER, SELFPAY ==
[2018-09-19 14:47] VITALS: BMI 20.9
[2018-09-19 14:57] VITALS: BP 119/73; PULSE 89; RESP 17; TEMP 36.7; O2SAT 92
[2018-09-19 16:00] VITALS: BP 131/67; PULSE 100; RESP 16; TEMP 36.8; O2SAT 93
--- NOTE | 2018-09-19 17:02 | PCM.HP.STD ---
Problem List (1) Shortness of breath Status: Acute (2) Bony metastasis Status: Acute (3) Hyperthyroidism Status: Chronic (4) Lymphoma Status: Acute (5) DVT, bilateral lower limbs Status: Acute (6) Pulmonary embolism Status: Acute (7) Generalized lymphadenopathy Status: Acute (8) Pleural effusion, bilateral Status: Acute (9) IBS (irritable bowel syndrome) Status: Chronic Comment: controlled with diet History of Present Illness Date of Admission: 09/19/18 Chief Complaint: Here for rehabilitation, strengthening, in preparation for chemotherapy for lymphoma. The patient is a 73 year old Female with below past medical history presented to [facility] Emergency Department 09/13/2018 with increasing shortness of breath, increasing heart rate. 09/13/2018 Chest X-ray showed persistent large left effusion, persistent moderate right effusion. 09/13/2018 EKG sinus tachycardia, septal infarct. 09/13/2018 CTA chest bilateral pulmonary emboli, large left effusion, large right effusion, lymphadenopathy, abdominal ascites, T10, T12 bony metastasis. Recent diagnosis of cancer. Pulsox 80% on 2 Liters Oxygen, dry cough. Increase bilateral lower extremity swelling. CBC, BMP, Coags okay. Heparin bolus, drip, for bilateral pulmonary embolism. 09/13/2018 Admit to Hospital. Recent doppler of legs NEGATIVE DVT. Recent Echo EF 65%, moderate pulmonary hypertension. IV heparin bilateral pulmonary emboli. IV Metoprolol for tachycardia. Left thoracentesis showed lymphocytic exudative effusion, NEGATIVE malignant cells. 09/13/2018 Doppler of legs showed acute DVT bilateral lower extremities. 09/14/2018 Left ultrasound guided thoracentesis revealed 1470ML fluid. 09/15/2018 Dr. Norman recommends AVAPS, Heparin drip, reassess BiPAP. 09/14/2018 Dr. Berger thinking Lymphoma. 09/14/2018 Thoracentesis fluid NEGATIVE malignant cells. 09/17/2018 Dr. Garcia planning open excisional biopsy lymph node, port placement. 09/18/2018 Dr. Berger recommends open lymph node biopsy, port placement, notes sacral pressure ulcer. 09/18/2018 Eliquis to Heparin to Eliquis after surgery. Respiratory status improving. 09/18/2018 Dr. Norman biopsy positive B Cell Lymphoma. Indefinite anticoagulation. Patient wishes aggressive treatment of B Cell Lymphoma. 09/18/2018 Dr. Garcia performed right IJ chest port placement, Left axillary skin lesion excision, right inguinal lymph node excisional biopsy. 09/19/2018 Start Eliquis, admit to TCU with debility, here for rehabilitation, strengthening, prior to discharge home with spouse to start chemotherapy. Past Medical History Past Medical History (Chronic Problems): Chronic Problems (Last Updated 09/13/18 @ 14:06 by Kamryn Prince MD) Hyperthyroidism (Chronic) Weight loss, non-intentional (Chronic) Pelvic mass in female (Chronic) IBS (irritable bowel syndrome) (Chronic) controlled with diet History of hyperthyroidism (Chronic) Medical History: Medical History (Last Updated 09/13/18 @ 14:06 by Kamryn Prince MD) IBS (irritable bowel syndrome) (Chronic) K58.9 controlled with diet History of hyperthyroidism (Chronic) Z86.39 Allergies No Known Allergies Allergy (Verified 09/13/18 11:54) Home Medications: Ambulatory Orders Medication Instructions Recorded Acetaminophen [Tylenol] 325 mg PO PRN PRN 08/31/18 Albuterol Inhaler [Ventolin Hfa] 1 - 2 puff INHALATION Q4H PRN PRN 09/02/18 #1 inhaler Albuterol Aerosols [Ventolin 2.5 mg INHALATION Q4H PRN PRN #1 09/19/18 Aerosols] vial.neb. Apixaban [Eliquis] 5 mg PO BID 09/19/18 Apixaban [Eliquis] 10 mg PO BID 09/19/18 Furosemide [Lasix] 20 mg PO DAILY 09/19/18 Surgical History: Surgical History (Last Reviewed 09/11/18 @ 13:26 by Agnes Denis) History of lumpectomy Z98.890 breast lump, 1990s, benign History of thoracentesis Z98.890 [facility] 09/01/18 Surgical History: - - Lumpectomy, Thoracentesis, port placement, right inguinal excisional lymph node biopsy. 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 Lives: Spouse/ Significant Other Smoking Status: Never smoker Tobacco Use: Non-smoker Alcohol: None Drugs: None - *Family History Maternal Family History: Family History (Last Reviewed 09/11/18 @ 13:26 by Agnes Denis) Mother Hypertension Cancer Diabetes Father Diabetes Kidney disease Hypertension Hyperlipemia Sister Breast cancer History Items: Cancer - Cervical., Diabetes Paternal Family History: Family History (Last Reviewed 09/11/18 @ 13:26 by Agnes Denis) Mother Hypertension Cancer Diabetes Father Diabetes Kidney disease Hypertension Hyperlipemia Sister Breast cancer History Items: Cancer - Skin., Heart Disease Review of Systems Constitutional: Denies: Chills, Fever, Weight Change HEENT: Denies: Head Aches, Sinus Congestion, Sinus Drainage Cardiovascular: Denies: Chest Pain, Palpitations Respiratory: Denies: Cough, Shortness of breath at rest, Sputum production Gastrointestinal: Reports: Constipation. Denies: Abdominal Pain, Nausea, Vomiting Genitourinary: Denies: Dysuria Musculoskeletal: Denies: Joint Pain, Joint Tenderness Skin: Denies: Rash, Wounds Neurological: Denies: Numbness, Tingling, Focal weakness Psychiatric: Denies: Anxiety, Depression, Homicidal Ideations, Suicidal Ideations Hematologic/ Lymphatic: Denies: Easy Bruising, Easy Bleeding VTE Information - Inpt Only VTE Present on Admission: Yes VTE Mechan Device Prophylaxis: Knee High MALORIE Hose VTE Pharm Prophylaxis ordered?: Yes Patient Problems: Active and Suspected Problems (Last Updated 09/13/18 @ 14:06 by Kamryn Prince MD) Shortness of breath (Acute) Bony metastasis (Acute) - Physical Exam General: Alert, Oriented x3, Cooperative HEENT: Atraumatic, PERRLA, EOMI, Normocephalic Neck: Supple, No JVD, Negative Carotid Bruits Lungs: Clear to auscultation, Normal air movement Cardiovascular: Regular rate, No murmurs, - - Right upper chest port. Abdomen: Bowel Sounds Present, Soft, Non Tender Extremities: No edema, Capillary Refill Less than 3 Seconds Skin: No rashes, No breakdown, Incision - Left axillary, right inguinal clean, dry, intact. Musculoskeletal: No Tenderness to Palpation of Joints or Extremities Neurological: Cranial nerves II-XII grossly intact Psych/Mental Status: Normal Affect, Appropriate Vital Signs Temp Pulse Resp BP Pulse Ox 98.1 F 89 17 119/73 92 09/19/18 14:57 09/19/18 14:57 09/19/18 14:57 09/19/18 14:57 09/19/18 14:57 Oxygen Flow Rate (L/min) 3 Oxygen Delivery Method Nasal Cannula Body Mass Index (BMI) 20.9 Assessment/Plan All Active Problems (Last Updated 09/13/18 @ 14:06 by Kamryn Prince MD) Encounter for adjustment or management of vascular access device (Acute) Mass of left axilla (Acute) Shortness of breath (Acute) Bony metastasis (Acute) Lymphoma (Acute) DVT, bilateral lower limbs (Acute) Pulmonary embolism (Acute) Generalized lymphadenopathy (Acute) Pleural effusion, bilateral (Acute) 73 year old female with below past medical history hospitalized for bilateral pulmonary emboli, bilateral lower extremity DVT secondary to newly diagnosed B cell lymphoma, admitted to TCU with debility, here for rehabilitation, strengthening, prior to discharge home with spouse to start chemotherapy. Debility - PT/OT. Pain - Tylenol 1000MG Q8H PRN mild pain. Bowel - Miralax 17GM daily, Senna/colace 1 tablet BID, Dulcolax 10MG daily PRN, Magnesium citrate 150ML PO x 1 dose for clean out. Pneumonia vaccination - Administer Prevnar 13 and/or Pneumovax 23 as necessary. DVT prophylaxis - Not necessary, already on Eliquis. Shortness of breath - Albuterol 2.5MG Q4H PRN. Bilateral pulmonary emboli/bilateral lower extremity DVT - Eliquis 10MG BID thru 09/26/2018, then 5MG BID indefinitely. Nutrition - Ensure Enlive 120ML 4x/day. Bilateral pleural effusion - Lasix 20MG daily. B-Cell Lymphoma - Chemotherapy per Dr. Berger upon discharge from TCU.
--- NOTE | 2018-09-19 17:13 | HP.PCM_ITS ---
Problem List (1) Shortness of breath Status: Acute (2) Bony metastasis Status: Acute (3) Hyperthyroidism Status: Chronic (4) Lymphoma Status: Acute (5) DVT, bilateral lower limbs Status: Acute (6) Pulmonary embolism Status: Acute (7) Generalized lymphadenopathy Status: Acute (8) Pleural effusion, bilateral Status: Acute (9) IBS (irritable bowel syndrome) Status: Chronic Comment: controlled with diet History of Present Illness Date of Admission: 09/19/18 Chief Complaint: Here for rehabilitation, strengthening, in preparation for chemotherapy for lymphoma. The patient is a 73 year old Female with below past medical history presented to [facility] Emergency Department 09/13/2018 with increasing shortness of breath, increasing heart rate. 09/13/2018 Chest X-ray showed persistent large left effusion, persistent moderate right effusion. 09/13/2018 EKG sinus tachycardia, septal infarct. 09/13/2018 CTA chest bilateral pulmonary emboli, large left effusion, large right effusion, lymphadenopathy, abdominal ascites, T10, T12 bony metastasis. Recent diagnosis of cancer. Pulsox 80% on 2 Liters Oxygen, dry cough. Increase bilateral lower extremity swelling. CBC, BMP, Coags okay. Heparin bolus, drip, for bilateral pulmonary embolism. 09/13/2018 Admit to Hospital. Recent doppler of legs NEGATIVE DVT. Recent Echo EF 65%, moderate pulmonary hypertension. IV heparin bilateral pulmonary emboli. IV Metoprolol for tachycardia. Left thoracentesis showed lymphocytic exudative effusion, NEGATIVE malignant cells. 09/13/2018 Doppler of legs showed acute DVT bilateral lower extremities. 09/14/2018 Left ultrasound guided thoracentesis revealed 1470ML fluid. 09/15/2018 Dr. Norman recommends AVAPS, Heparin drip, reassess BiPAP. 09/14/2018 Dr. Berger thinking Lymphoma. 09/14/2018 Thoracentesis fluid NEGATIVE malignant cells. 09/17/2018 Dr. Garcia planning open excisional biopsy lymph node, port placement. 09/18/2018 Dr. Berger recommends open lymph node biopsy, port placement, notes sacral pressure ulcer. 09/18/2018 Eliquis to Heparin to Eliquis after surgery. Respiratory status improving. 09/18/2018 Dr. Norman biopsy positive B Cell Lymphoma. Indefinite anticoagulation. Patient wishes aggressive treatment of B Cell Lymphoma. 09/18/2018 Dr. Garcia performed right IJ chest port placement, Left axillary skin lesion excision, right inguinal lymph node excisional biopsy. 09/19/2018 Start Eliquis, admit to TCU with debility, here for rehabilitation, strengthening, prior to discharge home with spouse to start chemotherapy. Past Medical History Past Medical History (Chronic Problems): Chronic Problems (Last Updated 09/13/18 @ 14:06 by Kamryn Prince MD) Hyperthyroidism (Chronic) Weight loss, non-intentional (Chronic) Pelvic mass in female (Chronic) IBS (irritable bowel syndrome) (Chronic) controlled with diet History of hyperthyroidism (Chronic) Medical History: Medical History (Last Updated 09/13/18 @ 14:06 by Kamryn Prince MD) IBS (irritable bowel syndrome) (Chronic) K58.9 controlled with diet History of hyperthyroidism (Chronic) Z86.39 Allergies No Known Allergies Allergy (Verified 09/13/18 11:54) Home Medications: Ambulatory Orders Medication Instructions Recorded Acetaminophen [Tylenol] 325 mg PO PRN PRN 08/31/18 Albuterol Inhaler [Ventolin Hfa] 1 - 2 puff INHALATION Q4H PRN PRN 09/02/18 #1 inhaler Albuterol Aerosols [Ventolin 2.5 mg INHALATION Q4H PRN PRN #1 09/19/18 Aerosols] vial.neb. Apixaban [Eliquis] 5 mg PO BID 09/19/18 Apixaban [Eliquis] 10 mg PO BID 09/19/18 Furosemide [Lasix] 20 mg PO DAILY 09/19/18 Surgical History: Surgical History (Last Reviewed 09/11/18 @ 13:26 by Agnes Denis) History of lumpectomy Z98.890 breast lump, 1990s, benign History of thoracentesis Z98.890 [facility] 09/01/18 Surgical History: - - Lumpectomy, Thoracentesis, port placement, right inguinal excisional lymph node biopsy. 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: No pertinent SCROLL ASSEMBLER history Lives: Spouse/ Significant Other Smoking Status: Never smoker Tobacco Use: Non-smoker Alcohol: None Drugs: None - *Family History Maternal Family History: Family History (Last Reviewed 09/11/18 @ 13:26 by Agnes Denis) Mother Hypertension Cancer Diabetes Father Diabetes Kidney disease Hypertension Hyperlipemia Sister Breast cancer History Items: Cancer - Cervical., Diabetes Paternal Family History: Family History (Last Reviewed 09/11/18 @ 13:26 by Agnes Denis) Mother Hypertension Cancer Diabetes Father Diabetes Kidney disease Hypertension Hyperlipemia Sister Breast cancer History Items: Cancer - Skin., Heart Disease Review of Systems Constitutional: Denies: Chills, Fever, Weight Change HEENT: Denies: Head Aches, Sinus Congestion, Sinus Drainage Cardiovascular: Denies: Chest Pain, Palpitations Respiratory: Denies: Cough, Shortness of breath at rest, Sputum production Gastrointestinal: Reports: Constipation. Denies: Abdominal Pain, Nausea, Vomiting Genitourinary: Denies: Dysuria Musculoskeletal: Denies: Joint Pain, Joint Tenderness Skin: Denies: Rash, Wounds Neurological: Denies: Numbness, Tingling, Focal weakness Psychiatric: Denies: Anxiety, Depression, Homicidal Ideations, Suicidal Ideations Hematologic/ Lymphatic: Denies: Easy Bruising, Easy Bleeding VTE Information - Inpt Only VTE Present on Admission: Yes VTE Mechan Device Prophylaxis: Knee High MALORIE Hose VTE Pharm Prophylaxis ordered?: Yes Patient Problems: Active and Suspected Problems (Last Updated 09/13/18 @ 14:06 by Kamryn Prince MD) Shortness of breath (Acute) Bony metastasis (Acute) - Physical Exam General: Alert, Oriented x3, Cooperative HEENT: Atraumatic, PERRLA, EOMI, Normocephalic Neck: Supple, No JVD, Negative Carotid Bruits Lungs: Clear to auscultation, Normal air movement Cardiovascular: Regular rate, No murmurs, - - Right upper chest port. Abdomen: Bowel Sounds Present, Soft, Non Tender Extremities: No edema, Capillary Refill Less than 3 Seconds Skin: No rashes, No breakdown, Incision - Left axillary, right inguinal clean, dry, intact. Musculoskeletal: No Tenderness to Palpation of Joints or Extremities Neurological: Cranial nerves II-XII grossly intact Psych/Mental Status: Normal Affect, Appropriate Vital Signs Temp Pulse Resp BP Pulse Ox 98.1 F 89 17 119/73 92 09/19/18 14:57 09/19/18 14:57 09/19/18 14:57 09/19/18 14:57 09/19/18 14:57 Oxygen Flow Rate (L/min) 3 Oxygen Delivery Method Nasal Cannula Body Mass Index (BMI) 20.9 Assessment/Plan All Active Problems (Last Updated 09/13/18 @ 14:06 by Kamryn Prince MD) Encounter for adjustment or management of vascular access device (Acute) Mass of left axilla (Acute) Shortness of breath (Acute) Bony metastasis (Acute) Lymphoma (Acute) DVT, bilateral lower limbs (Acute) Pulmonary embolism (Acute) Generalized lymphadenopathy (Acute) Pleural effusion, bilateral (Acute) 73 year old female with below past medical history hospitalized for bilateral pulmonary emboli, bilateral lower extremity DVT secondary to newly diagnosed B cell lymphoma, admitted to TCU with debility, here for rehabilitation, strengthening, prior to discharge home with spouse to start chemotherapy. * Debility - PT/OT. * Pain - Tylenol 1000MG Q8H PRN mild pain. * Bowel - Miralax 17GM daily, Senna/colace 1 tablet BID, Dulcolax 10MG daily PRN, Magnesium citrate 150ML PO x 1 dose for clean out. * Pneumonia vaccination - Administer Prevnar 13 and/or Pneumovax 23 as necessary. * DVT prophylaxis - Not necessary, already on Eliquis. * Shortness of breath - Albuterol 2.5MG Q4H PRN. * Bilateral pulmonary emboli/bilateral lower extremity DVT - Eliquis 10MG BID thru 09/26/2018, then 5MG BID indefinitely. * Nutrition - Ensure Enlive 120ML 4x/day. * Bilateral pleural effusion - Lasix 20MG daily. * B-Cell Lymphoma - Chemotherapy per Dr. Berger upon discharge from TCU.
[2018-09-19] MEDS: Magnesium Citrate 300 ML 150 ML PO (18:13)
[2018-09-19] MEDS: APIXABAN 5 MG TABLET 10 MG PO (18:15)
[2018-09-19] MEDS: Senna/Docusate Sodium 1 Tablet PO (18:15)
--- NOTE | 2018-09-19 18:21 | NURSING ---
PT STATED TO THIS NURSE THAT SOME TIMES SHE HAS TROUBLE SWALLOWING WATER AND TAKING PILLS. REPORTED TO AVE DAVIS WHO WILL PUT IN A SPEECH CONSULT.
[2018-09-19 22:00] VITALS: PULSE 83; O2SAT 95
--- NOTE | 2018-09-20 06:17 | NURSING ---
Code status discussed with pt this morning. Wishes to be a Full Code.
[2018-09-20] MEDS: APIXABAN 5 MG TABLET 10 MG PO ×2 (06:44→17:43)
[2018-09-20] MEDS: Furosemide 20 MG Tablet PO (06:45)
[2018-09-20 06:46] VITALS: O2SAT 93
[2018-09-20 08:23] LABS: Absolute Lymphocyte Count 0.53 X10^3/ul (0.83-4.51); Absolute Neutrophil Count 5.2 X10^3/uL (2.0-7.7); Basophil# 0.02 X10^3/uL; Basophil% 0.3 % (0-1); Eosinophil# 0.04 X10^3/uL; Eosinophils% 0.6 % (0-5); Hematocrit 36.4 % (37-47); Hemoglobin 11.7 g/dl (12.0-15.0); Lymphocyte # 0.53 X10^3/ul (4.0); Lymphocyte % 8.5 % (19-41); Mean Corp Hgb Conc 32.1 g/gl (32-36); Mean Corpuscular Hgb 28.1 pg (27.0-32.0); Mean Corpuscular Volume 87.5 fL (81-99); Mean Platelet Vol. 10.7 fl (6.2-12.0); Monocyte# 0.51 X10^3/uL; Monocyte% 8.1 % (0-10); Neutrophil # 5.15 X10^3/uL (2.7-7.7); Neutrophil % 82.2 % (47-70); Platelet Count 284 K/mm3 (150-450); RBC Distribution Width CV 16.4 % (11.6-14.6); RBC Distribution Width SD 51.2 fl (35.1-43.9); Red Blood Count 4.16 M/mm3 (4.2-5.4); White Blood Count 6.3 K/mm3 (4.4-11.0)
[2018-09-20 08:24] LABS: Differential Indicated SCAN CRITERIA MET; POSITIVE COUNT NO; POSITIVE DIFFERENTIAL YES; POSITIVE MORPHOLOGY NO
[2018-09-20 08:37] LABS: Anion Gap 7 (5-15); BUN 16 mg/dL (7-18); BUN/Creat Ratio 21.1 RATIO (10-20); Calcium,Total 8.5 mg/dL (8.5-10.1); Chloride 108 mmol/L (98-107); Creatinine, Serum 0.76 mg/dL (0.55-1.02); EST Glomerular Filtration Rate 79 mL/min (>60); Est Glom Filt Rate - Afr Amer 96 mL/min (>60); Estimated Creatinine Clearance 40.54 ml/min; Glucose 104 mg/dL (74-106); Potassium 3.9 mmol/L (3.5-5.1); Sodium Level 144 mmol/L (136-145)
[2018-09-20 09:05] VITALS: O2SAT 95
[2018-09-20 10:00] VITALS: PULSE 86; RESP 16; O2SAT 95
[2018-09-20] MEDS: Tuberculin,Purif.prot.deriv. 50 TU/ML Vial 5 ML ID (10:01)
--- NOTE | 2018-09-20 14:40 | NURSING ---
AVE DAVIS DID DRESSING CHANGE TO PT LEFT AXILLARY/LEFT UPPER INSIDE ARM.
[2018-09-20 14:59] VITALS: BP 119/53; PULSE 89; RESP 20; TEMP 37.3; O2SAT 93
[2018-09-20] MEDS: Menthol/Lanolin/Calamine/Znox 113 GM Tube 1 APPLIC TOPICAL (19:55)
[2018-09-21] MEDS: APIXABAN 5 MG TABLET 10 MG PO ×2 (06:03→17:47)
[2018-09-21] MEDS: Senna/Docusate Sodium 1 Tablet PO (06:03)
[2018-09-21] MEDS: Furosemide 20 MG Tablet PO (06:04)
[2018-09-21] MEDS: Menthol/Lanolin/Calamine/Znox 113 GM Tube 1 APPLIC TOPICAL ×2 (06:04→20:31)
[2018-09-21 07:51] VITALS: O2SAT 93
[2018-09-21 10:30] VITALS: O2SAT 98
[2018-09-21 16:00] VITALS: BP 141/74; PULSE 89; RESP 18; TEMP 37.5; O2SAT 96
--- NOTE | 2018-09-21 16:57 | CHAPLAIN ---
Type of Pastoral Visit ___ Initial Visit _x__ Follow-up Visit ___ On-call Visit ___ General Patient Visit ___ Spiritual Assessment ___ Family Conference ___ Bereavement ___ Rapid Response ___ Code Blue ___ Other (describe below) Pastoral Care Referral From _x__ Patient _x__ Family ___ Nurse ___ Physician ___ Regional Program Manager ___ Cpc Coder ___ Other (describe below) Sacrament/Intervention _x__ Active listening ___ Anointing ___ Faith ___ Bereavement ___ Communion _x__ Victoria exploration ___ _x__ Life review _x__ Prayer ___ Reconciliation ___ Sacrament of Sick _x__ Supportive presence ___ Wedding ___ Other (describe below) Pastoral Comments patient requests ongoing spiritual support and prayer
[2018-09-22] MEDS: APIXABAN 5 MG TABLET 10 MG PO ×2 (06:06→18:19)
[2018-09-22] MEDS: Furosemide 20 MG Tablet PO (06:06)
[2018-09-22] MEDS: Menthol/Lanolin/Calamine/Znox 113 GM Tube 1 APPLIC TOPICAL ×2 (06:15→20:02)
[2018-09-22 07:55] VITALS: O2SAT 98
[2018-09-22 10:45] VITALS: PULSE 90; RESP 18; O2SAT 99
--- NOTE | 2018-09-22 14:08 | CASEMGMT ---
BRIEF INTERVIEW FOR MENTAL STATUS (BIMS) AND RESIDENT MOOD INTERVIEW (PHQ9) COMPLETED ON THIS DAY. BIMS SCORE-14/15 PHQ9 SCORE- 12/02 DEVORA MAR MSW, SHEET METAL SUPERVISOR
[2018-09-22 15:15] VITALS: O2SAT 2
--- NOTE | 2018-09-22 15:19 | PCM.PN.RX ---
<Jagdeep Kothari Jona - Last Filed: 09/22/18 15:19> Progress Note - Pharmacy Subjective: TCU Admission Objective: Allergies No Known Allergies Allergy (Verified 09/13/18 11:54) Current Medications Generic Name Dose Route Start Last Admin Trade Name Freq PRN Reason Stop Dose Admin Acetaminophen 1,000 mg 09/19/18 17:24 Tylenol PO Q8H PRN MILD PAIN (1-3/10) Albuterol Sulfate 2.5 mg 09/19/18 15:09 Ventolin Aerosols INHALATION Q4H PRN PRN Shortness of breath, wheezing Apixaban 10 mg 09/19/18 18:00 09/22/18 06:06 Eliquis PO 09/26/18 18:01 10 mg BID SHRUTHI Administration Apixaban 5 mg 09/27/18 18:00 Eliquis PO BID SHRUTHI Bisacodyl 10 mg 09/19/18 17:25 Dulcolax PO DAILY PRN Constipation Calamine/Phenol 1 applic 09/20/18 22:00 09/22/18 06:15 Calmoseptine Ointment TOPICAL 1 applicatio 0600,2200 SHRUTHI Administration Protocol Furosemide 20 mg 09/20/18 06:00 09/22/18 06:06 Lasix PO 20 mg DAILY SHRUTHI Administration Nutritional Formula (Lactose Free) 120 ml 09/19/18 17:00 09/22/18 12:14 Ensure Enlive PO 120 ml 4X/DAY SHRUTHI Administration Pneumococcal 13-Valent Conj Vacc 0.5 ml 09/23/18 10:00 Prevnar-13 (Pcv-13) IM 09/23/18 10:01 .ONCE ONE Polyethylene Glycol 17 gm 09/20/18 06:00 09/22/18 06:05 Miralax PO Not Given DAILY [facility] Senna/Docusate Sodium 1 tablet 09/19/18 18:00 09/22/18 06:05 Senokot-S, Rody-Colace PO Not Given BID [facility] Tuberculin PPD 5 tu 09/27/18 10:00 Tubersol, Aplisol, Ppd ID 09/27/18 10:01 X1 ONE Problem List (Last Updated 09/13/18 @ 14:06 by Kamryn Prince MD) Shortness of breath (Acute) Bony metastasis (Acute) Hyperthyroidism (Chronic) Vital Signs Temp Pulse Resp BP Pulse Ox 99.5 F H 90 18 141/74 H 99 09/21/18 16:00 09/22/18 10:45 09/22/18 10:45 09/21/18 16:00 09/22/18 10:45 Oxygen Flow Rate (L/min) 2 Oxygen Delivery Method Nasal Cannula Weight: 50.491 kg Body Mass Index (BMI) 20.0 Sodium 144 mmol/L (136-145) 09/20/18 07:58 Potassium 3.9 mmol/L (3.5-5.1) 09/20/18 07:58 Chloride 108 mmol/L (98-107) H 09/20/18 07:58 Carbon Dioxide 29.0 mmol/L (21.0-32.0) 09/20/18 07:58 Anion Gap 7 (5-15) 09/20/18 07:58 BUN 16 mg/dL (7-18) 09/20/18 07:58 Creatinine 0.76 mg/dL (0.55-1.02) 09/20/18 07:58 Est GFR (MDRD) Af Amer 96 mL/min (>60) 09/20/18 07:58 Est GFR (MDRD) Non-Af 79 mL/min (>60) 09/20/18 07:58 BUN/Creatinine Ratio 21.1 RATIO (10-20) H 09/20/18 07:58 Glucose 104 mg/dL (74-106) 09/20/18 07:58 Assessment/Plan: 1) Pain APAP for mild pain. Continue to monitor prn medication use, daily pain scores. 2) DVT/PE Apixaban twice daily. Continue to monitor s/s bleeding/clot. 3) Pleural Effusion Furosemide daily. Continue to monitor renal function, electrolytes, shortness of breath. Psychotropic Medications: None Unnecessary Medications: None Bowel Regimen: 4) Senna/s, PEG, prn bisacodyl. Continue to monitor prn medication use, for constipation/diarrhea. Date of Note:: 09/22/18 - Provider Comments Provider responsibility: Provider responsible to enter orders to implement recommendations <Jacob Reyes Chi - Last Filed: 09/22/18 17:40> Progress Note - Pharmacy Subjective: [] Objective: Allergies No Known Allergies Allergy (Verified 09/13/18 11:54) Current Medications Generic Name Dose Route Start Last Admin Trade Name Freq PRN Reason Stop Dose Admin Acetaminophen 1,000 mg 09/19/18 17:24 Tylenol PO Q8H PRN MILD PAIN (1-3/10) Albuterol Sulfate 2.5 mg 09/19/18 15:09 Ventolin Aerosols INHALATION Q4H PRN PRN Shortness of breath, wheezing Apixaban 10 mg 09/19/18 18:00 09/22/18 06:06 Eliquis PO 09/26/18 18:01 10 mg BID SHRUTHI Administration Apixaban 5 mg 09/27/18 18:00 Eliquis PO BID SHRUTHI Bisacodyl 10 mg 09/19/18 17:25 Dulcolax PO DAILY PRN Constipation Calamine/Phenol 1 applic 09/20/18 22:00 09/22/18 06:15 Calmoseptine Ointment TOPICAL 1 applicatio 0600,2200 SHRUTHI Administration Protocol Furosemide 20 mg 09/20/18 06:00 09/22/18 06:06 Lasix PO 20 mg DAILY SHRUTHI Administration Nutritional Formula (Lactose Free) 120 ml 09/19/18 17:00 09/22/18 12:14 Ensure Enlive PO 120 ml 4X/DAY SHRUTHI Administration Pneumococcal 13-Valent Conj Vacc 0.5 ml 09/23/18 10:00 Prevnar-13 (Pcv-13) IM 09/23/18 10:01 .ONCE ONE Polyethylene Glycol 17 gm 09/20/18 06:00 09/22/18 06:05 Miralax PO Not Given DAILY [facility] Senna/Docusate Sodium 1 tablet 09/19/18 18:00 09/22/18 06:05 Senokot-S, Rody-Colace PO Not Given BID [facility] Tuberculin PPD 5 tu 09/27/18 10:00 Tubersol, Aplisol, Ppd ID 09/27/18 10:01 X1 ONE Problem List (Last Updated 09/13/18 @ 14:06 by Kamryn Prince MD) Follicular lymphoma grade II (Acute) Shortness of breath (Acute) Hyperthyroidism (Chronic) Vital Signs Temp Pulse Resp BP Pulse Ox 97.9 F 95 16 128/71 H 95 09/22/18 16:00 09/22/18 16:00 09/22/18 16:00 09/22/18 16:00 09/22/18 16:00 Oxygen Flow Rate (L/min) 2 Oxygen Delivery Method Room Air Weight: 50.491 kg Body Mass Index (BMI) 20.0 Sodium 144 mmol/L (136-145) 09/20/18 07:58 Potassium 3.9 mmol/L (3.5-5.1) 09/20/18 07:58 Chloride 108 mmol/L (98-107) H 09/20/18 07:58 Carbon Dioxide 29.0 mmol/L (21.0-32.0) 09/20/18 07:58 Anion Gap 7 (5-15) 09/20/18 07:58 BUN 16 mg/dL (7-18) 09/20/18 07:58 Creatinine 0.76 mg/dL (0.55-1.02) 09/20/18 07:58 Est GFR (MDRD) Af Amer 96 mL/min (>60) 09/20/18 07:58 Est GFR (MDRD) Non-Af 79 mL/min (>60) 09/20/18 07:58 BUN/Creatinine Ratio 21.1 RATIO (10-20) H 09/20/18 07:58 Glucose 104 mg/dL (74-106) 09/20/18 07:58 Assessment/Plan: Psychotropic Medications: Unnecessary Medications: Bowel Regimen: - Provider Comments Provider responsibility: Provider responsible to enter orders to implement recommendations Provider Comments to Recommendations by Pharmacy: Agree
--- NOTE | 2018-09-22 15:22 | PHA.CONS_ITS ---
<Jagdeep Kothari Jona - Last Filed: 09/22/18 15:19> Progress Note - Pharmacy Subjective: TCU Admission Objective: Allergies No Known Allergies Allergy (Verified 09/13/18 11:54) Current Medications Generic Name Dose Route Start Last Admin Trade Name Freq PRN Reason Stop Dose Admin Acetaminophen 1,000 mg 09/19/18 17:24 Tylenol PO Q8H PRN MILD PAIN (1-3/10) Albuterol Sulfate 2.5 mg 09/19/18 15:09 Ventolin Aerosols INHALATION Q4H PRN PRN Shortness of breath, wheezing Apixaban 10 mg 09/19/18 18:00 09/22/18 06:06 Eliquis PO 09/26/18 18:01 10 mg BID SHRUTHI Administration Apixaban 5 mg 09/27/18 18:00 Eliquis PO BID SHRUTHI Bisacodyl 10 mg 09/19/18 17:25 Dulcolax PO DAILY PRN Constipation Calamine/Phenol 1 applic 09/20/18 22:00 09/22/18 06:15 Calmoseptine Ointment TOPICAL 1 applicatio 0600,2200 SHRUTHI Administration Protocol Furosemide 20 mg 09/20/18 06:00 09/22/18 06:06 Lasix PO 20 mg DAILY SHRUTHI Administration Nutritional Formula (Lactose Free) 120 ml 09/19/18 17:00 09/22/18 12:14 Ensure Enlive PO 120 ml 4X/DAY SHRUTHI Administration Pneumococcal 13-Valent Conj Vacc 0.5 ml 09/23/18 10:00 Prevnar-13 (Pcv-13) IM 09/23/18 10:01 .ONCE ONE Polyethylene Glycol 17 gm 09/20/18 06:00 09/22/18 06:05 Miralax PO Not Given DAILY [facility] Senna/Docusate Sodium 1 tablet 09/19/18 18:00 09/22/18 06:05 Senokot-S, Rody-Colace PO Not Given BID [facility] Tuberculin PPD 5 tu 09/27/18 10:00 Tubersol, Aplisol, Ppd ID 09/27/18 10:01 X1 ONE Problem List (Last Updated 09/13/18 @ 14:06 by Kamryn Prince MD) Shortness of breath (Acute) Bony metastasis (Acute) Hyperthyroidism (Chronic) Vital Signs Temp Pulse Resp BP Pulse Ox 99.5 F H 90 18 141/74 H 99 09/21/18 16:00 09/22/18 10:45 09/22/18 10:45 09/21/18 16:00 09/22/18 10:45 Oxygen Flow Rate (L/min) 2 Oxygen Delivery Method Nasal Cannula Weight: 50.491 kg Body Mass Index (BMI) 20.0 Sodium 144 mmol/L (136-145) 09/20/18 07:58 Potassium 3.9 mmol/L (3.5-5.1) 09/20/18 07:58 Chloride 108 mmol/L (98-107) H 09/20/18 07:58 Carbon Dioxide 29.0 mmol/L (21.0-32.0) 09/20/18 07:58 Anion Gap 7 (5-15) 09/20/18 07:58 BUN 16 mg/dL (7-18) 09/20/18 07:58 Creatinine 0.76 mg/dL (0.55-1.02) 09/20/18 07:58 Est GFR (MDRD) Af Amer 96 mL/min (>60) 09/20/18 07:58 Est GFR (MDRD) Non-Af 79 mL/min (>60) 09/20/18 07:58 BUN/Creatinine Ratio 21.1 RATIO (10-20) H 09/20/18 07:58 Glucose 104 mg/dL (74-106) 09/20/18 07:58 Assessment/Plan: 1) Pain APAP for mild pain. Continue to monitor prn medication use, daily pain scores. 2) DVT/PE Apixaban twice daily. Continue to monitor s/s bleeding/clot. 3) Pleural Effusion Furosemide daily. Continue to monitor renal function, electrolytes, shortness of breath. Psychotropic Medications: None Unnecessary Medications: None Bowel Regimen: 4) Senna/s, PEG, prn bisacodyl. Continue to monitor prn medication use, for constipation/diarrhea. Date of Note:: 09/22/18 - Provider Comments Provider responsibility: Provider responsible to enter orders to implement recommendations <Jacob Reyes Chi - Last Filed: 09/22/18 17:40> Progress Note - Pharmacy Subjective: [] Objective: Allergies No Known Allergies Allergy (Verified 09/13/18 11:54) Current Medications Generic Name Dose Route Start Last Admin Trade Name Freq PRN Reason Stop Dose Admin Acetaminophen 1,000 mg 09/19/18 17:24 Tylenol PO Q8H PRN MILD PAIN (1-3/10) Albuterol Sulfate 2.5 mg 09/19/18 15:09 Ventolin Aerosols INHALATION Q4H PRN PRN Shortness of breath, wheezing Apixaban 10 mg 09/19/18 18:00 09/22/18 06:06 Eliquis PO 09/26/18 18:01 10 mg BID SHRUTHI Administration Apixaban 5 mg 09/27/18 18:00 Eliquis PO BID HSRUTHI Bisacodyl 10 mg 09/19/18 17:25 Dulcolax PO DAILY PRN Constipation Calamine/Phenol 1 applic 09/20/18 22:00 09/22/18 06:15 Calmoseptine Ointment TOPICAL 1 applicatio 0600,2200 SHRUTHI Administration Protocol Furosemide 20 mg 09/20/18 06:00 09/22/18 06:06 Lasix PO 20 mg DAILY SHRUTHI Administration Nutritional Formula (Lactose Free) 120 ml 09/19/18 17:00 09/22/18 12:14 Ensure Enlive PO 120 ml 4X/DAY SHRUTHI Administration Pneumococcal 13-Valent Conj Vacc 0.5 ml 09/23/18 10:00 Prevnar-13 (Pcv-13) IM 09/23/18 10:01 .ONCE ONE Polyethylene Glycol 17 gm 09/20/18 06:00 09/22/18 06:05 Miralax PO Not Given DAILY [facility] Senna/Docusate Sodium 1 tablet 09/19/18 18:00 09/22/18 06:05 Senokot-S, Rody-Colace PO Not Given BID [facility] Tuberculin PPD 5 tu 09/27/18 10:00 Tubersol, Aplisol, Ppd ID 09/27/18 10:01 X1 ONE Problem List (Last Updated 09/13/18 @ 14:06 by Kamryn Prince MD) Follicular lymphoma grade II (Acute) Shortness of breath (Acute) Hyperthyroidism (Chronic) Vital Signs Temp Pulse Resp BP Pulse Ox 97.9 F 95 16 128/71 H 95 09/22/18 16:00 09/22/18 16:00 09/22/18 16:00 09/22/18 16:00 09/22/18 16:00 Oxygen Flow Rate (L/min) 2 Oxygen Delivery Method Room Air Weight: 50.491 kg Body Mass Index (BMI) 20.0 Sodium 144 mmol/L (136-145) 09/20/18 07:58 Potassium 3.9 mmol/L (3.5-5.1) 09/20/18 07:58 Chloride 108 mmol/L (98-107) H 09/20/18 07:58 Carbon Dioxide 29.0 mmol/L (21.0-32.0) 09/20/18 07:58 Anion Gap 7 (5-15) 09/20/18 07:58 BUN 16 mg/dL (7-18) 09/20/18 07:58 Creatinine 0.76 mg/dL (0.55-1.02) 09/20/18 07:58 Est GFR (MDRD) Af Amer 96 mL/min (>60) 09/20/18 07:58 Est GFR (MDRD) Non-Af 79 mL/min (>60) 09/20/18 07:58 BUN/Creatinine Ratio 21.1 RATIO (10-20) H 09/20/18 07:58 Glucose 104 mg/dL (74-106) 09/20/18 07:58 Assessment/Plan: Psychotropic Medications: Unnecessary Medications: Bowel Regimen: - Provider Comments Provider responsibility: Provider responsible to enter orders to implement recommendations Provider Comments to Recommendations by Pharmacy: Agree
[2018-09-22 16:00] VITALS: BP 128/71; PULSE 95; RESP 16; TEMP 36.6; O2SAT 95
[2018-09-23] MEDS: Menthol/Lanolin/Calamine/Znox 113 GM Tube 1 APPLIC TOPICAL ×2 (05:58→20:18)
[2018-09-23] MEDS: Furosemide 20 MG Tablet PO (05:59)
[2018-09-23 07:00] VITALS: O2SAT 96
[2018-09-23] MEDS: APIXABAN 5 MG TABLET 10 MG PO ×2 (08:41→17:03)
--- NOTE | 2018-09-23 09:27 | CASEMGMT ---
Addendum entered by Florinda So 09/23/18 09:54: No further therapy recommended at this time. Therapy to provide resident with home exercise program. Original Note: Plan of care meeting held. Resident present as well as resident family. Resident requesting to discharge on 09/24/18. Team agreeable to discharge date and plan. Resident plans to discharge to home with spouse at time of discharge. Resident already has home oxygen set up in the home through [employer]. Resident has no further durable medical equipment needs. Resident family plans to provide transportation home for resident at time of discharge. Support given. Telephone call to Magdalene Massey. This nursing home social worker communicating resident discharge date. Magdalene reporting to have all needed orders already in place. Resident family plans to bring in a portable oxygen tank from home for the transition to home. Proposed discharge date: 09/24/18 PLAN: Discharge to home with spouse. ARLEY Shabazz, HEAD INSULATION BOARD SAW OPERATOR
[2018-09-23 15:16] VITALS: BP 125/64; PULSE 92; RESP 16; TEMP 36.4; O2SAT 95
[2018-09-23] MEDS: Senna/Docusate Sodium 1 Tablet PO (17:03)
[2018-09-23 19:58] VITALS: PULSE 68; RESP 18; O2SAT 96
--- NOTE | 2018-09-23 21:13 | DCINST_ITS ---
- Discharge Diagnoses Current Active Problems: Current Active and Chronic Problems (Last Updated 09/13/18 @ 14:06 by Kamryn Prince MD) Follicular lymphoma grade II (Acute) Shortness of breath (Acute) Hyperthyroidism (Chronic) You will use the following diet at home:: No restrictions, Regular Your food should be the consistency of: Regular Your liquids should be the consistency of: Regular/Thin Discharge Activity: Return to Normal Activity, May Shower, Use Walker Weight Bearing Status: Weight bearing as tolerated Call your doctor if you observe: Fever of 101 or Higher, Inability to urinate, Inability to have a bowel movement, Shortness of breath, Chest pain, Uncontrolled pain Allergies/Adverse Reactions: Allergies No Known Allergies Allergy (Verified 09/13/18 11:54) Medications to take at Discharge Acetaminophen [Tylenol] 1,000 mg PO Q8H PRN tablet 09/23/18 Albuterol Aerosols [Ventolin Aerosols] 2.5 mg INHALATION Q4H PRN PRN #30 vial.neb. 09/23/18 Albuterol Inhaler [Ventolin Hfa] 1 - 2 puff INHALATION Q4H PRN PRN #1 inhaler 09/23/18 Apixaban [Eliquis] 5 mg PO BID #60 tablet 09/23/18 Apixaban [Eliquis] 10 mg PO BID #12 tablet 09/23/18 Furosemide [Lasix] 20 mg PO DAILY #30 tablet 09/23/18 Menthol/Lanolin/Calamine/Znox [Calmoseptine Ointment] 1 applic TOPICAL 0600,2200 tube 09/23/18 Polyethylene Glycol 3350 [Miralax] 17 gm PO DAILY #30 packet 09/23/18 The following prescriptions were given: Albuterol Aerosols [Ventolin Aerosols] 2.5 mg INHALATION Q4H PRN PRN #30 vial.neb. PRN Reason: Shortness of breath, wheezing Albuterol Inhaler [Ventolin Hfa] 1 - 2 puff INHALATION Q4H PRN PRN #1 inhaler PRN Reason: Shortness Of Breath Furosemide [Lasix] 20 mg PO DAILY #30 tablet Polyethylene Glycol 3350 [Miralax] 17 gm PO DAILY #30 packet Apixaban [Eliquis] 10 mg PO BID #12 tablet Apixaban [Eliquis] 5 mg PO BID #60 tablet Primary Care Physician: Jacob Reyes Chi, MD [COURTESY STAFF PHYSICIAN] - Please follow up with your Primary Care Physician in: 6 days Test Results: Test results from this visit will be discussed in further detail at your follow- up appointment, if applicable. Please Follow Up With: Juani Berger MD When: 6 days Please Follow Up With: PET SCAN Proposed Discharge Date: 09/24/18
--- NOTE | 2018-09-23 21:13 | PCM.DC.SUM ---
Discharge Date and Diagnosis - Problem List Patient Problems: Active and Suspected Problems (Last Updated 09/13/18 @ 14:06 by Kamryn Prince MD) Follicular lymphoma grade II (Acute) Shortness of breath (Acute) Date of Admission: 09/19/18 Date of Discharge: 09/24/18 - Primary Discharge Diagnosis Active and Suspected Problems (Last Updated 09/13/18 @ 14:06 by Kamryn Prince MD) Follicular lymphoma grade II (Acute) Shortness of breath (Acute) - Secondary Discharge Diagnosis Chronic Problems (Last Updated 09/13/18 @ 14:06 by Kamryn Prince MD) Hyperthyroidism (Chronic) Weight loss, non-intentional (Chronic) Pelvic mass in female (Chronic) IBS (irritable bowel syndrome) (Chronic) controlled with diet History of hyperthyroidism (Chronic) Hospital Course and Treatment Imaging Results: 09/21/18 11:06 Diet: Regular Diet Liquid Consistency:: [place] Thick Dietary Modifications:: [place] Thick Liquids Is pt able to select menu?: Yes 09/28/18 06:00 NPO [Diet: Nothing Per Oral] Dietary Modifications:: [place] Thick Liquids Is pt able to select menu?: Yes Operations: None Procedures: None Summary of Care Provided: The patient is a 73 year old Female with below past medical history hospitalized for bilateral pulmonary emboli, bilateral lower extremity DVT secondary to newly diagnosed B cell lymphoma, admitted to TCU with debility, here for rehabilitation, strengthening, prior to discharge home with spouse to start chemotherapy. Needs Modified barium swallowing study as outpatient. Discharge home with spouse. Patient Problems: Active and Suspected Problems (Last Updated 09/13/18 @ 14:06 by Kamryn Prince MD) Follicular lymphoma grade II (Acute) Shortness of breath (Acute) - Physical Exam Vital Signs Temp Pulse Resp BP Pulse Ox 97.5 F L 92 16 125/64 H 95 09/23/18 15:16 09/23/18 15:16 09/23/18 15:16 09/23/18 15:16 09/23/18 15:16 Oxygen Flow Rate (L/min) 2 Oxygen Delivery Method Room Air Weight: 50.491 kg Body Mass Index (BMI) 20.0 Intake and Output for Last 24 Hours 12/17/18 12/18/18 12/19/18 23:59 23:59 23:59 Intake Total 960 / 960 960 / 960 600 / 600 Balance 960 / 960 960 / 960 600 / 600 Discharge Diet: - - [place] thick liquids. Discharge Activity: Return to Normal Activity, May Shower, Use Walker Weight Bearing Status: Weight bearing as tolerated Call your doctor if you observe: Fever of 101 or Higher, Inability to urinate, Inability to have a bowel movement, Shortness of breath, Chest pain, Uncontrolled pain Home Medications: Medications to take at Discharge Acetaminophen [Tylenol] 1,000 mg PO Q8H PRN tablet 09/23/18 Albuterol Aerosols [Ventolin Aerosols] 2.5 mg INHALATION Q4H PRN PRN #30 vial.neb. 09/23/18 Albuterol Inhaler [Ventolin Hfa] 1 - 2 puff INHALATION Q4H PRN PRN #1 inhaler 09/23/18 Apixaban [Eliquis] 5 mg PO BID #60 tablet 09/23/18 Apixaban [Eliquis] 10 mg PO BID #12 tablet 09/23/18 Furosemide [Lasix] 20 mg PO DAILY #30 tablet 09/23/18 Menthol/Lanolin/Calamine/Znox [Calmoseptine Ointment] 1 applic TOPICAL 0600,2200 tube 09/23/18 Polyethylene Glycol 3350 [Miralax] 17 gm PO DAILY #30 packet 09/23/18 Following Prescrptions Were Given to Patient: Albuterol Aerosols [Ventolin Aerosols] 2.5 mg INHALATION Q4H PRN PRN #30 vial.neb. PRN Reason: Shortness of breath, wheezing Albuterol Inhaler [Ventolin Hfa] 1 - 2 puff INHALATION Q4H PRN PRN #1 inhaler PRN Reason: Shortness Of Breath Furosemide [Lasix] 20 mg PO DAILY #30 tablet Polyethylene Glycol 3350 [Miralax] 17 gm PO DAILY #30 packet Apixaban [Eliquis] 10 mg PO BID #12 tablet Apixaban [Eliquis] 5 mg PO BID #60 tablet Primary Care Physician: Jacob Reyes Chi, MD [COURTESY STAFF PHYSICIAN] - Please follow up with your Primary Care Physician in: 6 days Please Follow Up With: Juani Berger MD When: 6 days Please Follow Up With: Jacob Reyes Chi, MD When: after discharge Please Follow Up With: PET SCAN Please Follow Up With: Dr Berger Disposition: Home Minutes spent on discharge:: 30 Patient Condition:: Stable Medical Necessity - Tobacco Use Smoking Status: Never smoker Tobacco Use: Non-smoker Meaningful Use Info Meaningful Use Diagnoses (Choose all that apply): None applicable
[2018-09-24] MEDS: Furosemide 20 MG Tablet PO (06:02)
[2018-09-24] MEDS: APIXABAN 5 MG TABLET 10 MG PO (06:02)
[2018-09-24] MEDS: Menthol/Lanolin/Calamine/Znox 113 GM Tube 1 APPLIC TOPICAL (06:03)
[2018-09-24 06:31] VITALS: O2SAT 98
[2018-09-24 09:19] VITALS: BP 128/71; PULSE 94; RESP 16; RESP 18; TEMP 36.6; O2SAT 95; O2SAT 96
--- NOTE | 2018-09-24 12:05 | NURSING ---
Retail pharmacy calls and reports that Eliquios will be costing resident $435.26/month after free trial period for medication is complete. resident and family member aware and ok with pharmacy to fill prescription. Pharmacy made aware.
--- NOTE | 2018-09-25 20:29 | NURSING ---
CHART ACCESSED B/C [facility] CALLS IN ASKING QUESTIONS RE: PT'S DC INSTRUCTIONS.
--- NOTE | 2018-10-01 08:39 | MDS.RN ---
Information for the mds was obtained from review of the clinical record, interview of resident, staff and direct observation of resident's care.
--- OUTSIDE RECORDS SUMMARY | 2018-12-23 11:32 | XMS RPT_ITS ---
:1945 Author Organization [place] Support Name Relationship Address Phone JULIA ROB Unavailable [address] + [place] [address] TUNDE SAM Unavailable [address]30 [address] + [address] [place] [address] R Unavailable Unavailable Unavailable FUNK, ROB Unavailable [address] + [place] [address] TUNDE SAM Unavailable 29429 TR 16 + [address] [place] [address] R Unavailable Unavailable Unavailable FUNK, ROB Unavailable [address] + [place] [address] TUNDE SAM Unavailable 42330 TR 16 + [address] [place] [address] R Unavailable Unavailable Unavailable FUNK, ROB Unavailable [address] + [place] [address] TUNDE SAM Unavailable 77840 TR 16 + [address] [place] [address] R Unavailable Unavailable Unavailable FUNK, ROB Unavailable [address] + [place] [address] TUNDE SAM Unavailable 93982 TR 16 + [address] [place] [address] R Unavailable Unavailable Unavailable FUNK, ROB Unavailable [address] + [place] [address] TUNDE SAM Unavailable 98465 TR 16 + [address] [place] [address] R Unavailable Unavailable Unavailable FUNK, ROB Unavailable [address] + [place] [address] TUNDE SAM Unavailable 07491 TR 16 + [address] [place] [address] R Unavailable Unavailable Unavailable FUNK, ROB Unavailable [address] + [place] [address] TUNDE SAM Unavailable 04550 TR 16 + [address] [facility] [place] [address] R Unavailable Unavailable Unavailable FUNK, ROB Unavailable [address] + [place] [address] LINTUNDE Harrell Unavailable 10221 TR 16 + [address] [facility] [place] [address] R Unavailable Unavailable Unavailable FUNK, ROB Unavailable [address] + [place] [address] TUNDE SAM Unavailable 16340 TR 16 + [address] [facility] [place] [address] R Unavailable Unavailable Unavailable FUNK, ROB Unavailable [address] + [place] [address] TUNDE SAM Unavailable 05939 TR 16 + [address] [facility] [place] [address] R Unavailable Unavailable Unavailable FUNK, ROB Unavailable [address] + [place] [address] TUNDE SAM Unavailable 50989 TR 16 + [address] [facility] [place] [address] R Unavailable Unavailable Unavailable FUNK, ROB Unavailable [address] + [place] [address] TUNDE SAM Unavailable 71445 TR 16 + [address] [place] [address] R Unavailable Unavailable Unavailable FUNK, ROB Unavailable [address] + [place] [address] TUNDE SAM Unavailable 04196 TR 16 + [address] [facility] [place] [address] R Unavailable Unavailable Unavailable FUNK, ROB Unavailable [address] + [place] [address] TUNDE SAM Unavailable 64423 TR 16 + [address] [place] [address] R Unavailable Unavailable Unavailable FUNK, ROB Unavailable [address] + [place] [address] TUNDE SAM Unavailable 62653 TR 16 + [address] [place] [address] R Unavailable Unavailable Unavailable FUNK, ROB Unavailable [address] + [place] [address] LINSharri TUNDE Unavailable 30695 [address] 16 + [address] [facility] [place] [address] R Unavailable Unavailable Unavailable FUNK, ROB Unavailable [address] + [place] [address] LINTUNDE Harrell Unavailable 71195 TR 16 + [address] [facility] [place] [address] R Unavailable Unavailable Unavailable FUNK, ROB Unavailable [address] + [place] [address] LINSharri, TUNDE Unavailable 70259 TR 16 + [address] [facility] [place] [address] R Unavailable Unavailable Unavailable FUNK, ROB Unavailable [address] + [place] [address] LINTUNDE Harrell Unavailable 13891 TR 16 + [address] [facility] [place] [address] R Unavailable Unavailable Unavailable FUNK, ROB Unavailable [address] + [place] [address] TUNDE SAM Unavailable 14105 TR 16 + [address] [facility] [place] [address] R Unavailable Unavailable Unavailable FUNK, ROB Unavailable [address] + [place] [address] TUNDE SAM Unavailable 88480 TR 16 + [address] [facility] [place] [address] R Unavailable Unavailable Unavailable FUNK, ROB Unavailable [address] + [place] [address] TUNDE SAM Unavailable 42840 TR 16 + [address] [place] [address] R Unavailable Unavailable Unavailable FUNK, ROB Unavailable [address] + [place] [address] TUNDE SAM Unavailable 77690 TR 16 + [address] [facility] [place] [address] R Unavailable Unavailable Unavailable FUNK, ROB Unavailable [address] + [place] [address] LINTTUNDE Unavailable 63513 TR 16 + [address] [place] [address] R Unavailable Unavailable Unavailable FUNK, ROB Unavailable [address] + [place] [address] LINTTUNDE Unavailable 59611 TR 16 + [address] [place] [address] R Unavailable Unavailable Unavailable FUNK, ROB Unavailable [address] + [place] [address] L[place]UNDE Harrell Unavailable 18513 TR 16 + [address] [place] [address] R Unavailable Unavailable Unavailable FUNK, ROB Unavailable [address] + [place] [address] L[place]DE Harrell Unavailable 84001 TR 16 + [address] [place] [address] R Unavailable Unavailable Unavailable FUNK, ROB Unavailable [address] + [place] [address] L[place]UNDE Harrell Unavailable 08305 TR 16 + [address] [place] [address] R Unavailable Unavailable Unavailable FUNK, ROB Unavailable [address] + [place] [address] TUNDE SAM Unavailable 41089 TR 16 + [address] [place] [address] R Unavailable Unavailable Unavailable FUNK, ROB Unavailable [address] + [place] [address] L[place]UNDE Harrell Unavailable 02311 TR 16 + [address] [place] [address] R Unavailable Unavailable Unavailable FUNK, ROB Unavailable [address] + [place] [address] TUNDE SAM Unavailable 45849 TR 16 + [address] [place] [address] R Unavailable Unavailable Unavailable FUNK, ROB Unavailable [address] + [place] [address] L[place]UNDE Harrell Unavailable 82910 TR 16 + [address] [place] [address] R Unavailable Unavailable Unavailable FUNK, ROB Unavailable [address] + [place] [address] L[place], TUNDE Unavailable [address]388 [address] + [place] [address] R Unavailable Unavailable Unavailable FUNK, ROB Unavailable [address] + [place] [address] L[place], TUNDE Unavailable [address] + [place] [address] R Unavailable Unavailable Unavailable FUNK, ROB Unavailable [address] + [place] [address] LINSharri, TUNDE Unavailable 84546 [address] + [place] [address] R Unavailable Unavailable Unavailable FUNK, ROB Unavailable [address] + [place] [address] LINSharri, TUNDE Unavailable 18554 [address] + [place] [address] R Unavailable Unavailable Unavailable FUNK, ROB Unavailable [address] + [place] [address] LINSharri, TUNDE Unavailable 95426 [address] + [place] [address] R Unavailable Unavailable Unavailable FUNK, ROB Unavailable [address] + [place] [address] LINSharri, TUNDE Unavailable 36602 TR 16 + [address] [place] [address] R Unavailable Unavailable Unavailable FUNK, ROB Unavailable [address] + [place] [address] L[place], TUNDE Unavailable 55153 TR 16 + [address] [place] [address] R Unavailable Unavailable Unavailable FUNK, ROB Unavailable [address] + [place] [address] LINSharri, TUNDE Unavailable 68564 TR 16 + [address] [place] [address] R Unavailable Unavailable Unavailable FUNK, ROB Unavailable [address] + [place] [address] L[place], TUNDE Unavailable [address] + [place] [address] R Unavailable Unavailable Unavailable FUNK, ROB Unavailable [address] + [place] [address] TUNDE SAM Unavailable 79321 TR 16 + [address] [place] [address] R Unavailable Unavailable Unavailable FUNK, ROB Unavailable [address] + [place] [address] TUNDE SAM Unavailable 71303 [address] + [place] [address] R Unavailable Unavailable Unavailable FUNK, ROB Unavailable [address] + [place] [address] TUNDE SAM Unavailable 40886 TR 16 + [address] [place] [address] R Unavailable Unavailable Unavailable Care Team Providers [...] Ghasem Consulting Unavailable Ashelfah, Ghasem Admitting Unavailable Calabretta, Bi Attending Unavailable Ashelfah, Ghasem Referring Unavailable Oleghe, [...] Bi Consulting Unavailable Ashelfah, Ghasem Consulting Unavailable Primay Care Physicia, No Primary Care Unavailable [facility], Mat Admitting Unavailable Junaid Norman Consulting Unavailable Faye Dunbar Attending Unavailable [facility], Mat Admitting Unavailable Primay Care Physicia, No Primary Care Unavailable Junaid Norman Consulting Unavailable [facility], Mat Attending Unavailable [facility], Mat Consulting Unavailable Ashelfah, Ghasem Admitting Unavailable Ashelfah, Ghasem Attending Unavailable Ashelfah, Ghasem Referring Unavailable Oleghe, Efewongbe Primary Care Unavailable Guicho Greenberg D.O. Consulting Unavailable Isckarus, Mansour Consulting Unavailable Calabretta, Bi Consulting Unavailable Ashelfah, Ghasem Consulting Unavailable Eric, [...] Gutierres Referring Unavailable Isckarus, Mansour Attending Unavailable Calabretta, Bi Primary Care Unavailable Isckarus, Mansour Consulting Unavailable Jocelyn Marquez Attending Unavailable Eric, Jacob Chi Primary Care Unavailable Anastacia Joseph Attending Unavailable Calabretta, Bi Primary Care Unavailable Isckarus, Mansour Consulting Unavailable Eric, Jacob Chi Attending Unavailable Calabretta, Bi Primary Care Unavailable AshabrDexter hendersonony Attending Unavailable Oleghe, Efewongbe Referring Unavailable Isckarus, Mansour Attending Unavailable Calabretta, Bi Primary Care Unavailable Isckarus, Mansour Consulting Unavailable Dirk Soto Attending Unavailable Ashelfah, Ghasem Referring Unavailable Joe Miranda Attending Unavailable Ashelfah, Ghasem Referring Unavailable Isckarus, Mansour Attending Unavailable Ashabretta, Bi Primary Care Unavailable Isckarus, Mansour Consulting Unavailable Anastacia Joseph Attending Unavailable Calabretta, Bi Primary Care Unavailable Isckarus, Mansour Consulting Unavailable [facility], Mat Admitting Unavailable Primay Care Physicia, No Primary Care Unavailable Emerson, Junaid Consulting Unavailable Tereletsky, Donn Attending Unavailable Tereletsky, Donn Consulting Unavailable Kenyon, Mat Admitting Unavailable Junaid Norman Attending Unavailable Primay Care Physicia, No Primary Care Unavailable Emerson Junaid Consulting Unavailable Tereletsky, Donn Consulting Unavailable Kenyon, Mat Admitting Unavailable Primay Care Physicia, No Primary Care Unavailable Emerson Junaid Consulting Unavailable Koram, Faye Carolyn Attending Unavailable Koram, Faye Carolyn Consulting Unavailable [facility], Mat Admitting Unavailable Junaid Norman Attending Unavailable Primay Care Physicia, No Primary Care Unavailable Emerson Junaid Consulting Unavailable Koram, Faye Carolyn Consulting Unavailable Oleghe, Efewongbe Attending Unavailable Primay Care Physicia, No Referring Unavailable Carina Ross Attending Unavailable Primay Care Physicia, No Referring Unavailable Cody Carina Attending Unavailable Ross, Carina Referring Unavailable Primay Care Physicia, No Primary Care Unavailable Oleghe, Efewongbe Attending Unavailable Oleghe, Efewongbe Referring Unavailable Oleghe, Efewongbe Primary Care Unavailable Isckarus, Mansour Attending Unavailable Ashabretta, Bi Primary Care Unavailable Bi Garcia Attending Unavailable Oleghe, Efewongbe Referring Unavailable Isckarus, Mansour Attending Unavailable Oleghe, Efewongbe Primary Care Unavailable Isckarus, Mansour Consulting Unavailable Oleghe, Efewongbe Primary Care Unavailable Ashelfah, Ghasem Admitting Unavailable Ashelfah, Ghasem Attending Unavailable Ashelfah, Ghasem Referring Unavailable Guicho Greenberg D.O. Consulting Unavailable Isckarus, Mansour Consulting Unavailable Ashabrbeatriz, Bi Consulting Unavailable Ashelfah, Ghasem Admitting Unavailable Ashelfah, Ghasem Attending Unavailable Ashelfah, Ghasem Referring Unavailable Oleghe, Efewongbe Primary Care Unavailable Ashelfah, Ghasem Consulting Unavailable Ashelfah, Ghasem Admitting Unavailable Ashelfah, Ghasem Attending Unavailable Ashelfah, Ghasem Referring Unavailable Oleghe, Efewongbe Primary Care Unavailable Guicho Greenberg D.O. Consulting Unavailable Isckarus, Mansour Consulting Unavailable Ashelfah, Ghasem Consulting Unavailable Ruth, Joe Attending Unavailable [place] Kline Referring Unavailable PROBLEMS PROBLEMS DATE TYPE CONDITION / CODE ATTENDING STATUS SOURCE 10/27/2018 Unknown C82.10 - Follicular Isckarus, Active [place] lymphoma grade II, [facility] unspecified site / Hospital C82.10(ICD-10) Repository 10/27/2018 Unknown Z79.899 - Other long Isckarus, Active [place] term (current) drug [facility] therapy / Hospital Z79.899(ICD-10) Repository 09/24/2018 Unknown R53.81 - Other malaise Eric, Jacob Chi Active [place] / R53.81(ICD-10) [facility] Repository 10/14/2018 Unknown I26.99 - Other Charles, Disney Active [place] pulmonary embolism [facility] without acute cor Hospital pulmonale / Repository I26.99(ICD-10) 10/14/2018 Unknown R94.31 - Abnormal Charles, Dirk Active [place] electrocardiogram Community [ECG] [EKG] / Hospital R94.31(ICD-10) Repository 10/20/2018 Unknown J98.9 - Respiratory Joe Miranda Active [place] disorder, unspecified Community / J98.9(ICD-10) Hospital Repository 09/11/2018 Unknown R59.1 - Generalized Calabretta, Active [place] enlarged lymph nodes / [facility] R59.1(ICD-10) Hospital Repository 09/11/2018 Unknown J90 - Pleural Isckarus, Active [place] effusion, not [facility] elsewhere classified / Hospital J90(ICD-10) Repository 09/11/2018 Unknown Z98.890 - Other Isckarus, Active [place] specified [facility] Z98.890(ICD-10) Repository 09/04/2018 Unknown R59.0 - Localized Ross, Active [place] enlarged lymph nodes / [facility] R59.0(ICD-10) Hospital Repository 09/04/2018 Unknown R19.00 - Oleghe, Active [place] Intra-abdominal and [facility] Community pelvic swelling, mass Hospital and lump, unspecified Repository site / R19.00(ICD-10) 09/04/2018 Unknown R19.09 - Other Oleghe, Active [place] intra-abdominal and [facility] Community pelvic swelling, mass Hospital and lump / Repository R19.09(ICD-10) 09/14/2018 Unknown M79.89 - Other Joe Miranda Active [place] specified soft tissue Community disorders / Hospital M79.89(ICD-10) Repository PROCEDURES PROCEDURES No Procedure Records FoundRESULTS RESULTS ONCOLOGY VISIT REPORT Observed: 10/28/2018 Status: F Source: [place] 2:00 PM [facility] REPOSITORY [facility] [address] [place], [place] [address] [address] OFFICE VISIT Date of Service: 10/28/18 1306 MR#: [id number] Acct: [id number] Name: NINFA SAM Rep #: [id number] : 1945 From: Anastacia MCPHERSON Age/Sex: 73/F Location: OMD Status: Signed Subjective - Date of Service Date of Service:: 10/28/18 - Chief Complaint Lymphoma on treatment - History of Present Illness Patient is a 73-year-old female who over [...] may represent metastatic lesion. September 11, 2018: Core biopsies from right inguinal lymph node flow cytometry consistent with B-cell lymphoma but pathology could not further subclassify. September 18, 2018: Excisional biopsy right groin lymph node and excision of a left axillary subcutaneous mass: A. Left axillary skin lesion, biopsy: Follicular center lymphoma, grade 1-2. B. Right inguinal lymph node, biopsy: Follicular center lymphoma, grade 2. September 28, 2018: PET/CT initial staging: FINDINGS: 1. Multifocal increased glucose concentration is defined in the bilateral-lateral neck to include the anatomic distributions of level IIA, III, right and left axillary regions, midline and right cardiophrenic border, peristernal to the left of the midline, as well as anterior neck involving level IV to the left of the midline and right paramedian level . The calculated maximal standard uptake value is 7.8. The maximal axial diameter of the largest metabolic, morphologic abnormality on review of CT of the neck-thorax dated 09/28/18 is 9.7-mm (transverse) x 22.0-mm (AP). The Lugano Deauville score is 5. 2. Enhanced FDG PET study concentration is identified in the pre-carinal level anterior and middle mediastinum, region of the aorticopulmonary window. The calculated maximal standard uptake value is 10.2. The Lugano Deauville score is 5. The maximal axial diameter of the largest individual metabolic, morphologic abnormality on review of CT of the chest dated 09/28/18 is approximately 26.1-mm (AP). 3. Multiple foci of increased radiopharmaceutical concentration are demonstrated in the abdominal-pelvic retroperitoneum and mesentery, the upper abdomen in the retrocrural regions, bilateral inguinal lymph node distributions. The calculated maximal standard uptake value is 24.5. The Lugano Deauville score is 5. The maximal axial diameter of the largest individual metabolic, morphologic abnormality on review of CT of the abdomen and pelvis dated 09/28/18 is 30.9-mm (transverse) x 62.7-mm (AP). 4. Mild increased FDG concentration is demonstrated in the right lower anterolateral and left lower anterior hemithorax with a calculated maximal standard uptake value of 1.9. The Lugano Deauville score is 3. 5. Normal physiologic distribution of the radiopharmaceutical is apparent in the hepatic (1.8) and splenic parenchyma, both renal units, bladder and visualized intestinal tract. The visualized portion of the cerebral cortex demonstrate symmetric and preserved glucose metabolism. Diffuse radiopharmaceutical concentration is noted in all four quadrants of the abdomen and pelvis. Prominent radiopharmaceutical concentration appears evident in several lumbar vertebrae in proximity to the intervertebral disc spaces most consistent with degenerative arthritis. Pertinent CT findings are as follows: CHEST: Jorge-cath placement is noted. There is atherosclerotic calcification defined in the thoracic aorta without evidence of dilatation-aneurysm formation. Coronary arterial calcification is observed. Calcified and non-calcified mediastinal soft tissue densities are non-glucose avid. Bilateral hemithorax pleural effusions demonstrate no evidence of quantitatively significant increased glucose metabolism. ABDOMEN AND PELVIS: There is atherosclerotic calcification defined in the abdominal aorta without evidence of dilatation-aneurysm formation. Pelvic arterial calcification are not identified. SKELETAL: Degenerative changes are noted in the cervical, thoracic and lumbar spine. A sclerotic density is defined at the level of the tenth thoracic vertebra. PET/PET/CT Tumor Base -Thigh Init IMPRESSION: 1. ABNORMAL EXAMINATION INDICATIVE OF MALIGNANT VIABLE NEOPLASM. 2. Increased glucose concentration observed in the bilateral anterior and lateral neck, right-left axillary regions fulfills quantitative criteria for viable neoplasm. 3. Mediastinal hypermetabolic foci fulfill quantitative criteria for malignant transformation. 4. The increase in FDG uptake visualized in the abdominal and pelvic retroperitoneum and mesentery, the retrocrural regions and bilateral inguinal lymph node distributions fulfills quantitative criteria for malignant transformation. 5. Facilitated uptake identified in the bilateral lung coker do not fulfill quantitative criteria for viable neoplasm. Bilateral pulmonary embolism September 2018: While still undergoing evaluation for her newly diagnosed lymphoma, the patient was hospitalized September 13, 2018 with worsening dyspnea and was found to have bilateral lower extremities DVT, bilateral pulmonary embolism and rapidly reaccumulating pleural effusions. She had the pleural fluid drained and was placed on systemic anticoagulation then admitted to the inpatient rehab unit and is expected to be discharged September 24, 2018. Treatment: Bendamustine Rituxan October 07, 2018- - Interval History The patient is presenting to clinic for 1 week follow up. Commenced with cycle 1 BR on 10/07/18. 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 She is not presently taking any otc medications including acetaminophen. Fatigue mild to moderate. Denies fever/chills, sweats, headache, CP, cough, N/V/D, abd pain and any episodes of overt bleeding or abnormal bruising. Reports bilateral lower extremity swelling is vastly improved. LBM 10/28/18. Appetite good, PO fluid intake likely adequate. - Past Medical/Social History Past Medical History Cancer: Lymphoma Social History Social History: No changes Smoking Status Never smoker Review of Systems Constitutional:: Reports: Weakness, Fatigue. Denies: Fever, Sweats, Weight loss, Appetite change, Chills Cardiovascular:: Reports: Dyspnea on exertion. Denies: Chest pain, Palpitations, Orthopnea, PND, Shortness of breath Respiratory: Denies: Cough, Hemoptysis, Shortness of Breath, Wheezing Gastrointestinal:: Denies: Abdominal pain, Nausea, Vomiting, Diarrhea, Constipation, Melena, Hematochezia Genitourinary: Denies: Dysuria, Hematuria, 15, Flank pain Musculoskeletal:: Denies: Back pain, Myalgia, Arthralgia Skin: Denies: Rash, Skin Changes, Wounds Neurological:: Denies: Headache, Dizziness, Numbness, Tingling, Visual changes, Tinnitus, Hearing loss Psychiatric: Denies: Anxiety, Depression, Homicidal Ideations, Suicidal Ideations Vital Signs Height 5 ft 3 in Weight: 118 lb 12.8 oz Weight in Pounds 118.8 lbs Pulse Ox 99 - Physical Exam General: Alert, Oriented x3, No apparent distress HEENT: Atraumatic, PERRLA, EOMI, Normocephalic Oropharynx:: Negative for: Dry mucosa, Ulcerated lesions Neck:: Supple, Trachea midline. Negative for: JVD, bilateral Cardiac:: Regular rate, Regular rhythm, Normal S1, Normal S2. Negative for: Murmur Lungs: Clear to auscultation, Excusion symmetrical. Negative for: Rhonchi, Wheezes Abdomen:: Bowel sounds x 4, Soft, Non-tender, Non-distended. Negative for: Hepatosplenomegaly Extremities:: Edema - Bilateral lower extremities, right greater than left. Negative for: Cyanosis Neurological: Neuro grossly intact Skin:: - - Port right upper chest accessed with gripper covered with DSD. Negative for: Lesions, Rash, Petechiae, Ecchymosis Psychiatric:: Appropriate affect, Euthymic Lymphatics:: Negative for: Cervical lymphadenopathy, Supraclavicular lymphadenopathy, Axillary lymphadenopathy Laboratory Data: Laboratory Tests WBC 13.1 H (4.4-11.0) K/mm3 RBC 3.81 L (4.2-5.4) M/mm3 Hgb 10.8 L (12.0-15.0) g/dl Hct 34.4 L (37-47) % Diagnostic Data: Diagnostic Data PET, CT Tumor Imaging 09/28/18 12:11 IMPRESSION: 1. ABNORMAL EXAMINATION INDICATIVE OF MALIGNANT VIABLE NEOPLASM. 2. Increased glucose concentration observed in the bilateral anterior and lateral neck, right-left axillary regions fulfills quantitative criteria for viable neoplasm. 3. Mediastinal hypermetabolic foci fulfill quantitative criteria for malignant transformation. 4. The increase in FDG uptake visualized in the abdominal and pelvic retroperitoneum and mesentery, the retrocrural regions and bilateral inguinal lymph node distributions fulfills quantitative criteria for malignant transformation. 5. Facilitated uptake identified in the bilateral lung coker do not fulfill quantitative criteria for viable neoplasm. Electronic Signature Donte Capps D.O. 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 Illness complicated with bilateral lower extremities DVTs and pulmonary embolism probably secondary to malignancy induced hyper coagulable state. Plan: 1. Started combination of bendamustine and Rituxan October 07, 2018. Overall tolerated without any excessive toxicities. BLE edema vastly improved. CBC shows white blood cell count 13.1, hemoglobin 10.8, platelets 191,000. 2. Received Tumor lysis prophylaxis during cycle 1 of therapy to consist of allopurinol and vigorous oral and IV hydration and furosemide diuresis on days 1-3 of cycle 1. 3. For malignancy induced hypercoagulability advise long- term systemic anticoagulation (malignancy is incurable). 4. If necessary we will perform therapeutic pleurocentesis, anticoagulation will have to be held at least 48 hours prior to procedures. 5. Sinus drainage-in the absence of fever and occurring less than 1 week. Advised supportive care with increase p.o. fluid intake, salt water gargles, rest, acetaminophen and guaifenesin. Instructed patient to call if symptoms worsen and/or call/present to ED in the event she develops fever. Return to office 11/04/2018 for consideration of cycle 2 BR, sooner if issues arise. Patient was in agreement with aforementioned plan. Anastacia Joseph, MSN, [employer], AOCNP Medications: Prescriptions This Visit Medication Instructions Recorded Allopurinol [Zyloprim] 300 mg PO DAILY #36 tab 09/24/18 Primary Care Provider: Mikey Diamond MD Referring Provider: - Problem List (1) Follicular lymphoma grade II Status: Acute (2) Hypercoagulable state Status: Acute (3) Sinus drainage Status: Acute 10/28/18 1400 <Electronically signed by Anastacia Joseph NP-C> Date Anastacia HERNANDEZC Cosigner Signature: Date (if applicable) CC: CBC W/DIFF, AUTOMATED Collected: 10/28/2018 Status: F Source: KIP 12:56 PM [facility] Order Comment: Reason for Laboratory Test . TYPE CODE TESTS RESULT OUT OF RANGE REFERENCE UNITS LAB L100.1000 4.4-11.0 K/mm3 High WBC 13.1 LAB L100.1200 4.2-5.4 M/mm3 Low RBC 3.81 LAB L100.1300 12.0-15.0 g/dl Low HGB 10.8 LAB L100.1400 37-47 % Low HCT 34.4 LAB L100.1500 81-99 fL Normal MCV 90.3 LAB L100.1600 27.0-32.0 pg Normal MCH 28.3 LAB L100.1700 32-36 g/gl Low MCHC 31.4 LAB L100.1810 11.6-14.6 % High RDW CV 16.7 LAB L100.1820 35.1-43.9 fl High RDW SD 53.6 LAB L100.1900 150-450 K/mm3 Normal PLT 191 LAB L100.2000 6.2-12.0 fl Normal MPV 10.8 LAB L100.2100 47-70 % High NEUT% 84.1 LAB L100.2200 19-41 % Low LY% 5.6 LAB L100.2300 0-10 % Normal MONO% 7.5 LAB L100.2400 0-5 % Normal EO% 1.0 LAB L100.2500 0-1 % Normal BASO% 0.2 LAB L100.2550 0.0-0.9 % High IM GRAN % 1.600 Result Comment: IG% - Immature Granulocytes (promyelocytes, myelocytes and metamyelocytes) > 1% indicates that a LEFT SHIFT is Present. LAB L100.2620 2.0-7.7 X10 3/uL High Absolute Neut 11.0 LAB L100.2720 0.83-4.51 X10 3/ul Low Absolute Lymph 0.73 Performed By: #### L100.0100 #### [facility] [address] [facility]. [place], [place], [address] ONCOLOGY VISIT REPORT Observed: 10/21/2018 Status: F Source: [place] 2:49 PM [facility] [address] [facility]. [place], [place] [address] OFFICE VISIT Date of Service: 10/21/18 1415 MR#: [id number] Acct: [id number] Name: NINFA SAM Rep #: [id number] : 1945 From: Juani Berger MD Age/Sex: 73/F Location: OMD Status: Signed - Problem List (1) Follicular lymphoma grade II Status: Acute (2) Pleural effusion, bilateral Status: Acute (3) Pulmonary embolism Status: Acute - Date of Service Date of Service:: 10/21/18 - Chief Complaint Lymphoma on treatment - History of Present Illness Patient is a 73-year-old female who over [...] may represent metastatic lesion. September 11, 2018: Core biopsies from right inguinal lymph node flow cytometry consistent with B-cell lymphoma but pathology could not further subclassify. September 18, 2018: Excisional biopsy right groin lymph node and excision of a left axillary subcutaneous mass: A. Left axillary skin lesion, biopsy: Follicular center lymphoma, grade 1-2. B. Right inguinal lymph node, biopsy: Follicular center lymphoma, grade 2. September 28, 2018: PET/CT initial staging: FINDINGS: 1. Multifocal increased glucose concentration is defined in the bilateral-lateral neck to include the anatomic distributions of level IIA, III, right and left axillary regions, midline and right cardiophrenic border, peristernal to the left of the midline, as well as anterior neck involving level IV to the left of the midline and right paramedian level . The calculated maximal standard uptake value is 7.8. The maximal axial diameter of the largest metabolic, morphologic abnormality on review of CT of the neck-thorax dated 09/28/18 is 9.7-mm (transverse) x 22.0-mm (AP). The Lugano Deauville score is 5. 2. Enhanced FDG PET study concentration is identified in the pre-carinal level anterior and middle mediastinum, region of the aorticopulmonary window. The calculated maximal standard uptake value is 10.2. The Lugano Deauville score is 5. The maximal axial diameter of the largest individual metabolic, morphologic abnormality on review of CT of the chest dated 09/28/18 is approximately 26.1-mm (AP). 3. Multiple foci of increased radiopharmaceutical concentration are demonstrated in the abdominal-pelvic retroperitoneum and mesentery, the upper abdomen in the retrocrural regions, bilateral inguinal lymph node distributions. The calculated maximal standard uptake value is 24.5. The Lugano Deauville score is 5. The maximal axial diameter of the largest individual metabolic, morphologic abnormality on review of CT of the abdomen and pelvis dated 09/28/18 is 30.9-mm (transverse) x 62.7-mm (AP). 4. Mild increased FDG concentration is demonstrated in the right lower anterolateral and left lower anterior hemithorax with a calculated maximal standard uptake value of 1.9. The Lugano Deauville score is 3. 5. Normal physiologic distribution of the radiopharmaceutical is apparent in the hepatic (1.8) and splenic parenchyma, both renal units, bladder and visualized intestinal tract. The visualized portion of the cerebral cortex demonstrate symmetric and preserved glucose metabolism. Diffuse radiopharmaceutical concentration is noted in all four quadrants of the abdomen and pelvis. Prominent radiopharmaceutical concentration appears evident in several lumbar vertebrae in proximity to the intervertebral disc spaces most consistent with degenerative arthritis. Pertinent CT findings are as follows: CHEST: Jorge-cath placement is noted. There is atherosclerotic calcification defined in the thoracic aorta without evidence of dilatation-aneurysm formation. Coronary arterial calcification is observed. Calcified and non-calcified mediastinal soft tissue densities are non-glucose avid. Bilateral hemithorax pleural effusions demonstrate no evidence of quantitatively significant increased glucose metabolism. ABDOMEN AND PELVIS: There is atherosclerotic calcification defined in the abdominal aorta without evidence of dilatation-aneurysm formation. Pelvic arterial calcification are not identified. SKELETAL: Degenerative changes are noted in the cervical, thoracic and lumbar spine. A sclerotic density is defined at the level of the tenth thoracic vertebra. PET/PET/CT Tumor Base -Thigh Init IMPRESSION: 1. ABNORMAL EXAMINATION INDICATIVE OF MALIGNANT VIABLE NEOPLASM. 2. Increased glucose concentration observed in the bilateral anterior and lateral neck, right-left axillary regions fulfills quantitative criteria for viable neoplasm. 3. Mediastinal hypermetabolic foci fulfill quantitative criteria for malignant transformation. 4. The increase in FDG uptake visualized in the abdominal and pelvic retroperitoneum and mesentery, the retrocrural regions and bilateral inguinal lymph node distributions fulfills quantitative criteria for malignant transformation. 5. Facilitated uptake identified in the bilateral lung coker do not fulfill quantitative criteria for viable neoplasm. Bilateral pulmonary embolism September 2018: While still undergoing evaluation for her newly diagnosed lymphoma, the patient was hospitalized September 13, 2018 with worsening dyspnea and was found to have bilateral lower extremities DVT, bilateral pulmonary embolism and rapidly reaccumulating pleural effusions. She had the pleural fluid drained and was placed on systemic anticoagulation then admitted to the inpatient rehab unit and is expected to be discharged September 24, 2018. Treatment: Bendamustine Rituxan October 07, 2018- - Interval History Toxicity check following cycle 1 - Past Medical/Social History Past Medical History Cancer: Lymphoma Social History Smoking Status Never smoker Review of Systems Constitutional:: Reports: Weakness, Fatigue - overall a bit better and able to do more at home and of , - - Occasional minor nose bleeds. Denies: Fever, Sweats, Weight loss, Appetite change, Chills Cardiovascular:: Reports: Dyspnea on exertion - A bit better and able to take off oxygen at times during the day, Peripheral edema - Does not appreciate any significant decrease. Denies: Chest pain, Palpitations, Orthopnea, PND, Shortness of breath Respiratory: Reports: Shortness of breath upon exertion. Denies: Cough, Hemoptysis, Shortness of Breath, Wheezing Gastrointestinal:: Denies: Abdominal pain, Nausea, Vomiting, Diarrhea, Constipation, Hematochezia Genitourinary: Denies: Dysuria, Hematuria, 15, Flank pain Musculoskeletal:: Denies: Back pain, Myalgia, Arthralgia Skin: Denies: Rash, Skin Changes, Wounds Neurological:: Denies: Headache, Dizziness, Visual changes, Tinnitus, Hearing loss Psychiatric: Denies: Anxiety, Depression, Homicidal Ideations, Suicidal Ideations Vital Signs Height 5 ft 3 in Weight: 57.516 kg Weight in Pounds 126.8 lbs Pulse Ox 96 - Physical Exam General: Alert, Oriented x3, No apparent distress, - - ECOG 2, seen and a wheelchair HEENT: Atraumatic, PERRLA, EOMI, Normocephalic Oropharynx:: Dry mucosa Neck:: Supple, Trachea midline, - - Port okay. Negative for: JVD, bilateral Cardiac:: Regular rate, Regular rhythm, Normal S1, Normal S2. Negative for: Murmur Lungs: Clear to auscultation, Diminished - Delmy bilateral pleural effusions, Excusion symmetrical. Negative for: Rhonchi, Wheezes Abdomen:: Soft, Non-tender, Non-distended. Negative for: Hepatosplenomegaly Extremities:: Edema - Gross bilateral lower extremities. Negative for: Cyanosis Neurological: Neuro grossly intact Skin:: Negative for: Lesions, Rash, Petechiae, Ecchymosis Psychiatric:: Appropriate affect, Euthymic Lymphatics:: Cervical lymphadenopathy, Axillary lymphadenopathy. Negative for: Supraclavicular lymphadenopathy Laboratory Data: CBC reviewed in EMR Diagnostic Data: Diagnostic Data PET, CT Tumor Imaging 09/28/18 12:11 IMPRESSION: 1. ABNORMAL EXAMINATION INDICATIVE OF MALIGNANT VIABLE NEOPLASM. 2. Increased glucose concentration observed in the bilateral anterior and lateral neck, right-left axillary regions fulfills quantitative criteria for viable neoplasm. 3. Mediastinal hypermetabolic foci fulfill quantitative criteria for malignant transformation. 4. The increase in FDG uptake visualized in the abdominal and pelvic retroperitoneum and mesentery, the retrocrural regions and bilateral inguinal lymph node distributions fulfills quantitative criteria for malignant transformation. 5. Facilitated uptake identified in the bilateral lung coker do not fulfill quantitative criteria for viable neoplasm. Electronic Signature Donte Capps D.O. 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 Illness complicated with bilateral lower extremities DVTs and pulmonary embolism probably secondary to malignancy induced hyper coagulable state. Plan: 1. Started combination of bendamustine and Rituxan October 07, 2018. Overall tolerated without any excessive toxicities 2. Received Tumor lysis prophylaxis during cycle 1 of therapy to consist of allopurinol and vigorous oral and IV hydration and furosemide diuresis on days 1-3 of cycle 1. 3. For malignancy induced hypercoagulability advise long- term systemic anticoagulation (malignancy is incurable). 4. If necessary we will perform therapeutic pleurocentesis, anticoagulation will have to be held at least 48 hours prior to procedures. Patient was seen was her family ( ) impression and plan discussed, Medications: Prescriptions This Visit Medication Instructions Recorded Allopurinol [Zyloprim] 300 mg PO DAILY #36 tab 09/24/18 Primary Care Provider: Mikey Diamond MD Referring Provider: 10/21/18 1449 <Electronically signed by Juani Berger MD> Date Juani Berger MD Cosigner Signature: Date (if applicable) CC: CBC W/DIFF, AUTOMATED Collected: 10/21/2018 Status: F Source: KIP 2:08 PM [facility] Order Comment: Reason for Laboratory Test . TYPE CODE TESTS RESULT OUT OF RANGE REFERENCE UNITS LAB L100.1000 4.4-11.0 K/mm3 High WBC 17.2 LAB L100.1200 4.2-5.4 M/mm3 Low RBC 3.88 LAB L100.1300 12.0-15.0 g/dl Low HGB 11.0 LAB L100.1400 37-47 % Low HCT 34.8 LAB L100.1500 81-99 fL Normal MCV 89.7 LAB L100.1600 27.0-32.0 pg Normal MCH 28.4 LAB L100.1700 32-36 g/gl Low MCHC 31.6 LAB L100.1810 11.6-14.6 % High RDW CV 16.8 LAB L100.1820 35.1-43.9 fl High RDW SD 54.5 LAB L100.1900 150-450 K/mm3 Normal PLT 168 LAB L100.2000 6.2-12.0 fl Normal MPV 11.4 LAB L100.2100 47-70 % High NEUT% 88.7 LAB L100.2200 19-41 % Low LY% 5.2 LAB L100.2300 0-10 % Normal MONO% 4.7 LAB L100.2400 0-5 % Normal EO% 0.4 LAB L100.2500 0-1 % Normal BASO% 0.2 LAB L100.2550 0.0-0.9 % Normal IM GRAN % 0.800 Result Comment: IG% - Immature Granulocytes (promyelocytes, myelocytes and metamyelocytes) > 1% indicates that a LEFT SHIFT is Present. LAB L100.2620 2.0-7.7 X10 3/uL High Absolute Neut 15.3 LAB L100.2720 0.83-4.51 X10 3/ul Normal Absolute Lymph 0.89 Performed By: #### L100.0100 #### [facility] [address] [place], [address] Observed: 10/07/2018 Status: F Source: KIP CULTURE, BLOOD (WB) 5:00 PM [facility] Has pt arrived? Y BC No growth in 5 days. Performed By: #### M200.1000 #### [facility] [address] [place], [address] Observed: 10/07/2018 Status: F Source: KIP CULTURE, BLOOD (WB) 5:00 PM [facility] Has pt arrived? Y BC No growth in 5 days. Performed By: #### M200.1000 #### [facility] [address] [place], [address] ONCOLOGY VISIT REPORT Observed: 10/07/2018 Status: F Source: KIP 9:22 AM [facility] REPOSITORY [facility] [address] [place] [address] OFFICE VISIT Date of Service: 10/07/18 0836 MR#: [id number] Acct: [id number] Name: NINFA SAM Rep #: [id number] : 1945 From: Juani Berger MD Age/Sex: 73/F Location: OMD Status: Signed - Problem List (1) Follicular lymphoma grade II Status: Acute (2) Pleural effusion, bilateral Status: Acute (3) Pulmonary embolism Status: Acute - Date of Service Date of Service:: 10/07/18 - Chief Complaint Lymphoma - History of Present Illness Patient is a 73-year-old female who over [...] may represent metastatic lesion. September 11, 2018: Core biopsies from right inguinal lymph node flow cytometry consistent with B-cell lymphoma but pathology could not further subclassify. September 18, 2018: Excisional biopsy right groin lymph node and excision of a left axillary subcutaneous mass: A. Left axillary skin lesion, biopsy: Follicular center lymphoma, grade 1-2. B. Right inguinal lymph node, biopsy: Follicular center lymphoma, grade 2. September 28, 2018: PET/CT initial staging: FINDINGS: 1. Multifocal increased glucose concentration is defined in the bilateral-lateral neck to include the anatomic distributions of level IIA, III, right and left axillary regions, midline and right cardiophrenic border, peristernal to the left of the midline, as well as anterior neck involving level IV to the left of the midline and right paramedian level . The calculated maximal standard uptake value is 7.8. The maximal axial diameter of the largest metabolic, morphologic abnormality on review of CT of the neck-thorax dated 09/28/18 is 9.7-mm (transverse) x 22.0-mm (AP). The Lugano Deauville score is 5. 2. Enhanced FDG PET study concentration is identified in the pre-carinal level anterior and middle mediastinum, region of the aorticopulmonary window. The calculated maximal standard uptake value is 10.2. The Lugano Deauville score is 5. The maximal axial diameter of the largest individual metabolic, morphologic abnormality on review of CT of the chest dated 09/28/18 is approximately 26.1-mm (AP). 3. Multiple foci of increased radiopharmaceutical concentration are demonstrated in the abdominal-pelvic retroperitoneum and mesentery, the upper abdomen in the retrocrural regions, bilateral inguinal lymph node distributions. The calculated maximal standard uptake value is 24.5. The Lugano Deauville score is 5. The maximal axial diameter of the largest individual metabolic, morphologic abnormality on review of CT of the abdomen and pelvis dated 09/28/18 is 30.9-mm (transverse) x 62.7-mm (AP). 4. Mild increased FDG concentration is demonstrated in the right lower anterolateral and left lower anterior hemithorax with a calculated maximal standard uptake value of 1.9. The Lugano Deauville score is 3. 5. Normal physiologic distribution of the radiopharmaceutical is apparent in the hepatic (1.8) and splenic parenchyma, both renal units, bladder and visualized intestinal tract. The visualized portion of the cerebral cortex demonstrate symmetric and preserved glucose metabolism. Diffuse radiopharmaceutical concentration is noted in all four quadrants of the abdomen and pelvis. Prominent radiopharmaceutical concentration appears evident in several lumbar vertebrae in proximity to the intervertebral disc spaces most consistent with degenerative arthritis. Pertinent CT findings are as follows: CHEST: Jorge-cath placement is noted. There is atherosclerotic calcification defined in the thoracic aorta without evidence of dilatation-aneurysm formation. Coronary arterial calcification is observed. Calcified and non-calcified mediastinal soft tissue densities are non-glucose avid. Bilateral hemithorax pleural effusions demonstrate no evidence of quantitatively significant increased glucose metabolism. ABDOMEN AND PELVIS: There is atherosclerotic calcification defined in the abdominal aorta without evidence of dilatation-aneurysm formation. Pelvic arterial calcification are not identified. SKELETAL: Degenerative changes are noted in the cervical, thoracic and lumbar spine. A sclerotic density is defined at the level of the tenth thoracic vertebra. PET/PET/CT Tumor Base -Thigh Init IMPRESSION: 1. ABNORMAL EXAMINATION INDICATIVE OF MALIGNANT VIABLE NEOPLASM. 2. Increased glucose concentration observed in the bilateral anterior and lateral neck, right-left axillary regions fulfills quantitative criteria for viable neoplasm. 3. Mediastinal hypermetabolic foci fulfill quantitative criteria for malignant transformation. 4. The increase in FDG uptake visualized in the abdominal and pelvic retroperitoneum and mesentery, the retrocrural regions and bilateral inguinal lymph node distributions fulfills quantitative criteria for malignant transformation. 5. Facilitated uptake identified in the bilateral lung coker do not fulfill quantitative criteria for viable neoplasm. Bilateral pulmonary embolism September 2018: While still undergoing evaluation for her newly diagnosed lymphoma, the patient was hospitalized September 13, 2018 with worsening dyspnea and was found to have bilateral lower extremities DVT, bilateral pulmonary embolism and rapidly reaccumulating pleural effusions. She had the pleural fluid drained and was placed on systemic anticoagulation then admitted to the inpatient rehab unit and is expected to be discharged September 24, 2018. Treatment: Bendamustine Rituxan October 07, 2018- - Past Medical/Social History Social History Smoking Status Never smoker Review of Systems Constitutional:: Reports: Weakness, Fatigue, Weight loss, Appetite change. Denies: Fever, Sweats, Chills Cardiovascular:: Reports: Dyspnea on exertion, Peripheral edema, Shortness of breath - On oxygen, 2 L by nasal cannula. Denies: Chest pain, Palpitations, Orthopnea, PND Respiratory: Reports: Shortness of breath upon exertion. Denies: Cough, Hemoptysis, Shortness of Breath, Wheezing Gastrointestinal:: Denies: Abdominal pain, Nausea, Vomiting, Diarrhea, Constipation, Hematochezia Genitourinary: Denies: Dysuria, Hematuria, 15, Flank pain Musculoskeletal:: Denies: Back pain, Myalgia, Arthralgia Skin: Denies: Rash, Skin Changes, Wounds Neurological:: Denies: Headache, Dizziness, Visual changes, Tinnitus, Hearing loss Psychiatric: Denies: Anxiety, Depression, Homicidal Ideations, Suicidal Ideations Vital Signs Height 5 ft 3 in Weight: 52.435 kg Weight in Pounds 115.6 lbs Pulse Ox 95 - Physical Exam General: Alert, Oriented x3, No apparent distress, - - ECOG 2, seen in a wheelchair HEENT: Atraumatic, PERRLA, EOMI, Normocephalic Oropharynx:: Dry mucosa Neck:: Supple, Trachea midline, - - Port okay. Negative for: JVD, bilateral Cardiac:: Regular rate, Regular rhythm, Normal S1, Normal S2. Negative for: Murmur Lungs: Clear to auscultation, Diminished - Over both bases consistent with bilateral moderate sized pleural effusions, Excusion symmetrical. Negative for: Rhonchi, Wheezes Abdomen:: Soft, Non-tender, Non-distended. Negative for: Hepatosplenomegaly Extremities:: Edema. Negative for: Cyanosis Neurological: Neuro grossly intact Skin:: Negative for: Lesions, Rash, Petechiae, Ecchymosis Psychiatric:: Appropriate affect, Euthymic Lymphatics:: Cervical lymphadenopathy, Axillary lymphadenopathy. Negative for: Supraclavicular lymphadenopathy Laboratory Data: Reviewed in EMR Diagnostic Data: Diagnostic Data PET, CT Tumor Imaging 09/28/18 12:11 IMPRESSION: 1. ABNORMAL EXAMINATION INDICATIVE OF MALIGNANT VIABLE NEOPLASM. 2. Increased glucose concentration observed in the bilateral anterior and lateral neck, right-left axillary regions fulfills quantitative criteria for viable neoplasm. 3. Mediastinal hypermetabolic foci fulfill quantitative criteria for malignant transformation. 4. The increase in FDG uptake visualized in the abdominal and pelvic retroperitoneum and mesentery, the retrocrural regions and bilateral inguinal lymph node distributions fulfills quantitative criteria for malignant transformation. 5. Facilitated uptake identified in the bilateral lung coker do not fulfill quantitative criteria for viable neoplasm. Electronic Signature Donte Capps D.O. 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 Illness complicated with bilateral lower extremities DVTs and pulmonary embolism probably secondary to malignancy induced hyper coagulable state. Plan: 1. After review of NCCN guidelines and the up-to-date review follicular lymphoma I advise 6 cycles of systemic therapy with a combination of bendamustine and Rituxan. Following recent data showing increased toxicity from standard dosing of bendamustine in patients above age 70, bendamustine dose will be adjusted down to 70mg/m body surface area on days 1 and 2 of each cycle. 2. Tumor lysis prophylaxis during cycle 1 of therapy to consist of allopurinol 300 mg daily for 7 days starting day before starting chemotherapy and vigorous oral and IV hydration and furosemide diuresis on days 1-3 of cycle 1. 3. For malignancy induced hypercoagulability advise long- term systemic anticoagulation (malignancy is incurable). 4. If necessary we will perform therapeutic pleurocentesis, anticoagulation will have to be held at least 48 hours prior to procedures. Patient was seen was her family ( ) impression and plan discussed, Medications: Prescriptions This Visit Medication Instructions Recorded Allopurinol [Zyloprim] 300 mg PO DAILY #36 tab 09/24/18 Medications Added to Medication List This Visit 0.9% Normal Saline Med 10/07/18 00:00 Active Primary Care Provider: Mikey Diamond MD Referring Provider: 10/07/18 0922 <Electronically signed by Juani Berger MD> Date Juani Berger MD Cosigner Signature: Date (if applicable) CC: CBC W/DIFF, AUTOMATED Collected: 10/07/2018 Status: F Source: [place] 8:22 AM [facility] TYPE CODE TESTS RESULT OUT OF RANGE REFERENCE UNITS LAB L100.1000 4.4-11.0 K/mm3 Normal WBC 4.8 LAB L100.1200 4.2-5.4 M/mm3 Low RBC 4.09 LAB L100.1300 12.0-15.0 g/dl Low HGB 11.4 LAB L100.1400 37-47 % Low HCT 35.5 LAB L100.1500 81-99 fL Normal MCV 86.8 LAB L100.1600 27.0-32.0 pg Normal MCH 27.9 LAB L100.1700 32-36 g/gl Normal MCHC 32.1 LAB L100.1810 11.6-14.6 % High RDW CV 17.3 LAB L100.1820 35.1-43.9 fl High RDW SD 54.8 LAB L100.1900 150-450 K/mm3 Normal PLT 221 LAB L100.2000 6.2-12.0 fl Normal MPV 9.7 LAB L100.2100 47-70 % High NEUT% 71.3 LAB L100.2200 19-41 % Normal LY% 19.3 LAB L100.2300 0-10 % Normal MONO% 8.0 LAB L100.2400 0-5 % Normal EO% 0.6 LAB L100.2500 0-1 % Normal BASO% 0.6 LAB L100.2550 0.0-0.9 % Normal IM GRAN % 0.200 Result Comment: IG% - Immature Granulocytes (promyelocytes, myelocytes and metamyelocytes) > 1% indicates that a LEFT SHIFT is Present. LAB L100.2620 2.0-7.7 X10 3/uL Normal Absolute Neut 3.4 LAB L100.2720 0.83-4.51 X10 3/ul Normal Absolute Lymph 0.92 Performed By: #### L100.0100 #### [facility] [address] [place], [address] COMPREHENSIVE METABOLIC Collected: 10/07/2018 Status: F [facility] AM [facility] REPOSIT[facility] Order Comment: Serial Specimen #1, #2 or #3? 1 TYPE CODE TESTS RESULT OUT OF RANGE REFERENCE UNITS LAB L501.0100 74-106 mg/dL Normal GLU 86 Result Comment: Please note revised GLUCOSE reference range effective 2017. LAB L501.1000 7-18 mg/dL High BUN 23 LAB L501.1100 0.55-1.02 mg/dL Normal CREAT,SERUM 0.70 Result Comment: The validity of the calculated GFR AND GFRAA in patients over 70 years has not been determined. Clinical correlation is essential. LAB L501.1110 >60 mL/min Normal EST GFR 87 Result Comment: Non- GFR Calc LAB L501.1115 >60 mL/min Normal EST GFR - AA 105 Result Comment: GFR Calc LAB L501.1255 ml/min Normal Estimated CRCL 41.45 LAB L501.1300 10-20 RATIO High BUN/CRE 32.7 LAB L501.1500 6.4-8. g/dL Low 2 T PROT 5.2 LAB L501.1800 3.2-5. g/dL Low 0 ALB 2.6 LAB L501.1950 2.2-4. g/dL Normal 2 GLOB 2.6 LAB L501.2000 0.9-2. RATIO Normal 4 A/G 1.0 LAB L501.2200 8.5-10 mg/dL Low .1 CA 8.2 LAB L501.4100 15-37 U/L Normal AST 17 LAB L501.4305 45-117 U/L Normal ALK P 98 LAB L501.4405 13-56 U/L Normal ALT 13 LAB L501.4600 0.20-1 mg/dL Normal .00 T BILI 0.40 LAB L501.5300 136-14 mmol/L Normal 5 NA 143 LAB L501.5600 3.5-5. mmol/L Normal 1 K 3.5 LAB L501.5900 98-107 mmol/L Normal CL 105 LAB L501.6100 21.0-3 mmol/L Normal 2.0 CO2 30.0 LAB L501.6200 5-15 Normal GAP 8 Performed By: #### L500.4050, L501.1400, L504.2610 #### [facility] [address] [place], [place], [id number] URIC ACID Collected: 10/07/2018 Status: F Source: [place] 8:22 AM [facility] Order Comment: Serial Specimen #1, #2 or #3? 1 TYPE CODE TESTS RESULT OUT OF RANGE REFERENCE UNITS LAB L501.1400 2.6-6.0 mg/dL Normal URIC 4.4 Result Comment: The drugs N-Acetylcysteine and Metamizole may falsely depress this assay. Performed By: #### L500.4050, L501.1400, L504.2610 #### [facility] [address] [place], [address] LDH Collected: 10/07/2018 Status: F Source: [place] 8:22 AM [facility] Order Comment: Serial Specimen #1, #2 or #3? 1 TYPE CODE TESTS RESULT OUT OF RANGE REFERENCE UNITS LAB L504.2610 84-246 U/L High LDH 282 Performed By: #### L500.4050, L501.1400, L504.2610 #### [facility] [address] [place], [address] SURGERY VISIT REPORT Observed: 10/05/2018 Status: F Source: [place] 8:42 AM [facility] [address] [place] [address] OFFICE VISIT Date of Service: 10/02/18 MR#: [id number] Acct: [id number] Name: NINFA SAM Rep #: [id number] : 1945 Provider: Bi Garcia MD Age/Sex: 73/F Location: [facility] Status: Signed Intake Intake Visit Reasons: Suture Removal 09/19 Acute Pulm Emboli Chief Complaint: Chemotherapy education bendamustine/Rituxan [employer] Required: No Is patient in pain?: No Allergies No Known Allergies Allergy (Verified 10/02/18 11:13) Medications Acetaminophen [Tylenol] 1,000 mg PO Q8H PRN tab 09/23/18 [Rx Confirmed 10/02/18] Albuterol Aerosols [Ventolin Aerosols] 2.5 mg INHALATION Q4H PRN PRN #30 vial.neb. 09/23/18 [Rx Confirmed 10/02/18] Albuterol Inhaler [Ventolin Hfa] 1 - 2 puff INHALATION Q4H PRN PRN #1 inhaler 09/23/18 [Rx Confirmed 10/02/18] Apixaban [Eliquis] 5 mg PO BID #60 tab 09/23/18 [Rx Confirmed 10/02/18] Furosemide [Lasix] 20 mg PO DAILY #30 tab 09/23/18 [Rx Confirmed 10/02/18] Menthol/Lanolin/Calamine/Znox [Calmoseptine Ointment] 1 applic TOPICAL 0600,2200 tube 09/23/18 [Rx Confirmed 10/02/18] Polyethylene Glycol 3350 [Miralax] 17 gm PO DAILY #30 packet 09/23/18 [Rx Confirmed 10/02/18] Allopurinol [Zyloprim] 300 mg PO DAILY #36 tab 09/24/18 [Rx Confirmed 10/02/18] Lidocaine/Prilocaine [Lidocaine-Prilocaine Cream] 1 applicatio TOPICAL DAILY PRN PRN 30 Days #1 tube 09/30/18 [Rx Confirmed 10/02/18] Ondansetron [Zofran Odt] 4 mg PO Q8H PRN PRN 10 Days #30 tab 09/30/18 [Rx Confirmed 10/02/18] Subjective Details: Patient is doing well after port placement and excision of left axillary mass as well as right groin biopsy. She is still having some drainage from the left axillary incision. Objective Details: The port site is healing with no signs of infection. Sutures were removed. The left axillary incision seems to have lost a few of the sutures and opened a little bit. There is good granulation tissue with no purulent discharge. The groin incision is healing well with no swelling or signs of infection. Assessment AND Plan Problems 1. 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 The patient was diagnosed with lymphoma both in her axilla and her groin. She is seeing oncology and starting treatment on October 07. 2. The patient is having swelling of her leg. I am unsure if this is due to malnutrition or her DVT or the lymphoma. 3. The left axillary wound is open with granulation tissue. I suspect this will continue to heal. If there is any sign of infection or redness I asked her to call me and return to clinic. 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 10/05/18 0842 <Electronically signed by Bi Garcia MD> Date Bi Garcia MD Cosigner Signature: Date (if applicable) CC: CBC W/DIFF, AUTOMATED Collected: 09/30/2018 Status: F Source: [place] 3:35 PM [facility] TYPE CODE TESTS RESULT OUT OF RANGE REFERENCE UNITS LAB L100.1000 4.4-11.0 K/mm3 Normal WBC 4.7 LAB L100.1200 4.2-5.4 M/mm3 Low RBC 3.82 LAB L100.1300 12.0-15.0 g/dl Low HGB 11.5 LAB L100.1400 37-47 % Low HCT 36.4 LAB L100.1500 81-99 fL Normal MCV 95.3 LAB L100.1600 27.0-32.0 pg Normal MCH 30.1 LAB L100.1700 32-36 g/gl Low MCHC 31.6 LAB L100.1810 11.6-14.6 % Normal RDW CV 12.7 LAB L100.1820 35.1-43.9 fl Normal RDW SD 42.7 LAB L100.1900 150-450 K/mm3 Normal PLT 227 LAB L100.2000 6.2-12.0 fl Normal MPV 10.8 LAB L100.2100 47-70 % Low NEUT% 44.4 LAB L100.2200 19-41 % Normal LY% 34.5 LAB L100.2300 0-10 % High MONO% 13.0 LAB L100.2400 0-5 % High EO% 7.5 LAB L100.2500 0-1 % Normal BASO% 0.4 LAB L100.2550 0.0-0.9 % Normal IM GRAN % 0.200 Result Comment: IG% - Immature Granulocytes (promyelocytes, myelocytes and metamyelocytes) > 1% indicates that a LEFT SHIFT is Present. LAB L100.2620 2.0-7.7 X10 3/uL Normal Absolute Neut 2.1 LAB L100.2720 0.83-4.51 X10 3/ul Normal Absolute Lymph 1.62 Performed By: #### L100.0100 #### [facility] [address] [place], [address] COMPREHENSIVE METABOLIC Collected: 09/30/2018 Status: F Source: [place] 3:35 PM [facility]POS[facility] TYPE CODE TESTS RESULT OUT OF RANGE REFERENCE UNITS LAB L501.0100 74-106 mg/dL Normal GLU 92 Result Comment: Please note revised GLUCOSE reference range effective 2017. LAB L501.1000 7-18 mg/dL High BUN 19 LAB L501.1100 0.55-1.02 mg/dL Normal CREAT,SERUM 1.00 Result Comment: The validity of the calculated GFR AND GFRAA in patients over 70 years has not been determined. Clinical correlation is essential. LAB L501.1110 >60 mL/min Low EST GFR 58 Result Comment: Non- GFR Calc LAB L501.1115 >60 mL/min Normal EST GFR - AA 70 Result Comment: GFR Calc LAB L501.1300 10-20 RATIO Normal BUN/CRE 19.0 LAB L501.1500 6.4-8.2 g/dL Low T PROT 5.4 LAB L501.1800 3.2-5.0 g/dL Low ALB 2.4 LAB L501.1950 2.2-4.2 g/dL Normal GLOB 3.0 LAB L501.2000 0.9-2.4 RATIO Low A/G 0.8 LAB L501.2200 8.5-10.1 mg/dL Low CA 8.2 LAB L501.4100 15-37 U/L Normal AST 22 LAB L501.4305 45-117 U/L Normal ALK P 77 LAB L501.4405 13-56 U/L Low ALT 12 LAB L501.4600 0.20-1.00 mg/dL T Normal BILI 0.20 LAB L501.5300 136-145 mmol/L NA Normal 141 LAB L501.5600 3.5-5.1 mmol/L K Normal 4.7 LAB L501.5900 98-107 mmol/L CL Normal 107 LAB L501.6100 21.0-32.0 mmol/L Normal CO2 27.0 LAB L501.6200 5-15 Normal GAP 7 Performed By: #### L500.4050, L500.4100, L501.9520 #### [facility] [address] [place], [place], [address] LIPID PROFILE Collected: 09/30/2018 Status: F Source: [place] 3:35 PM [facility]POS[facility] TYPE CODE TESTS RESULT OUT OF RANGE REFERENCE UNITS LAB L501.4900 200 mg/dL High CHOL 201 Result Comment: <200 mg/dL Desirable 200-240 mg/dL Borderline >240 mg/dL High Risk LAB L501.5000 mg/dL Normal TRIG 125 Result Comment: The drugs N-Acetylcysteine and Metamizole may falsely depress this assay. Serum Triglycerides Reference Interval Normal <150 mg/dL Borderline high 150 - 199 mg/dL High 200 - 499 mg/dL Very High > or = 500 mg/dL LAB L501.6400 mg/dL Normal HDL 46 Result Comment: The drugs N-Acetylcysteine and Metamizole may falsely depress this assay. Reference Range HDL <40 mg/dL Low HDL Cholesterol HDL >or= 60 mg/dL High HDL Cholesterol LAB L501.6500 0-130 mg/dL Normal LDL 130 LAB L501.6600 5-40 mg/dL Normal VLDL 25 Performed By: #### L500.4050, L500.4100, L501.9520 #### [facility] [address] [place], [place], [id number] THYROID STIM HORMONE Collected: 09/30/2018 Status: F Source: [place] ([place]) 3:35 PM [facility]POS[facility]ORY TYPE CODE TESTS RESULT OUT OF RANGE REFERENCE UNITS LAB L501.9520 0.358-3.74 uIU/mL Normal TSH 2.36 Performed By: #### L500.4050, L500.4100, L501.9520 #### [facility] [address] [place], [place], [id number] VITAMIN D,25 HYDROXY Collected: 09/30/2018 Status: F Source: [place] 3:35 PM [facility] TYPE CODE TESTS RESULT OUT OF REFERENCE UNITS RANGE LAB L506.1000 29.95-100.01 ng/mL Low Vitamin D 27.8 25-OH Result Comment: Vitamin D 25(OH) Status Range Deficiency <20 ng/mL (50nmol/L) Insuffciency 20 - 30 ng/mL (50 - 75 nmol/L) Sufficiency 30 - 100 ng/mL (75 - 250 nmol/L) Toxicity >100 ng/mL (>250 nmol/L) Performed By: #### L506.1000 #### [facility] [address] [place], [address] ONCOLOGY VISIT REPORT Observed: 09/30/2018 Status: F Source: [place] 1:10 PM [facility] [address] [place] [address] OFFICE VISIT Date of Service: 09/30/18 1139 MR#: [id number] Acct: [id number] Name: NINFA SAM Rep #: [id number] : 1945 From: Anastacia MCPHERSON Age/Sex: 73/F Location: [facility] Status: Signed Subjective - Date of Service Date of Service:: 09/30/18 - Chief Complaint Chemotherapy education bendamustine/Rituxan - History of Present Illness Patient is a 73-year-old female who over [...] may represent metastatic lesion. September 11, 2018: Core biopsies from right inguinal lymph node flow cytometry consistent with B-cell lymphoma but pathology could not further subclassify. September 18, 2018: Excisional biopsy right groin lymph node and excision of a left axillary subcutaneous mass: A. Left axillary skin lesion, biopsy: Follicular center lymphoma, grade 1-2. B. Right inguinal lymph node, biopsy: Follicular center lymphoma, grade 2. In the interim, the patient was hospitalized September 13, 2018 with worsening dyspnea and was found to have bilateral lower extremities DVT, bilateral pulmonary embolism and rapidly reaccumulating pleural effusions. She had the pleural fluid drained and was placed on systemic anticoagulation then admitted to the inpatient rehab unit and is expected to be discharged September 24, 2018. - Interval History The patient is presenting to clinic today accompanied by for chemotherapy education. It is been proposed that the patient begin systemic chemotherapy with BR. Concerns today include - Past Medical/Social History Social History Smoking Status Never smoker Review of Systems Constitutional:: Denies: Fever, Sweats, Weight loss, Appetite change, Chills Cardiovascular:: Denies: Chest pain, Palpitations, Dyspnea on exertion, Orthopnea, PND, Shortness of breath Respiratory: Denies: Cough, Hemoptysis, Shortness of Breath, Wheezing Gastrointestinal:: Denies: Abdominal pain, Nausea, Vomiting, Diarrhea, Constipation, Hematochezia Genitourinary: Denies: Dysuria, Hematuria, 15, Flank pain Musculoskeletal:: Denies: Back pain, Myalgia, Arthralgia Skin: Denies: Rash, Skin Changes, Wounds Neurological:: Denies: Headache, Dizziness, Visual changes, Tinnitus, Hearing loss Psychiatric: Denies: Anxiety, Depression, Homicidal Ideations, Suicidal Ideations Vital Signs Height 5 ft 3 in Weight: 110 lb 12.8 oz Weight in Pounds 110.8 lbs Pulse Ox 100 - Physical Exam General: Alert, Oriented x3, No apparent distress HEENT: Atraumatic, Normocephalic Psychiatric:: Appropriate affect, Euthymic Assessment and Plan 73-year-old female with a high risk symptomatic follicular lymphoma grade 1-2 (score 5 for age above 60, elevated serum LDH, anemia with hemoglobin less than 12, advanced stage IV and more than 4 saida areas involved) who presented with generalized lymphadenopathy over the course of the past year or so , bilateral pleural effusions with a negative cytology, left axillary subcutaneous mass not clearly saida). Illness complicated with bilateral lower extremities DVTs and pulmonary embolism probably secondary to malignancy induced hyper coagulable state. Plan: 1. PET/CT to complete staging and rule out any areas of concern of aggressive transformation that may require a biopsy to confirm and change of treatment. 2. We will hold off a bone marrow biopsy (patient is stage IV, she is on systemic anticoagulation and recent PE and would favor not holding anticoagulation unless necessary, we will not change treatment plan, and may be confirmed on PET/CT) 3. Unless there is evidence to suggest aggressive transformation, advise 6 cycles of systemic therapy with a combination of bendamustine and Rituxan. Following recent data showing increased toxicity from standard dosing of bendamustine in patients above age 70, bendamustine dose will be adjusted down to 70mg/m body surface area on days 1 and 2 of each cycle. The patient has been thoroughly educated to risks/benefits associated with Rituxan and bendamustine. Specifically, she has been educated to potential side effects, recommendations for symptom management, and circumstances in which she should contact provider immediately, such as the development of any signs/symptoms of infection inclusive of temperature > 100.4. Encouraged to go directly to ED should fever occur outside normal clinic hours. She has been provided written educational information and after hours contact information and prescriptions for prn antiemetics/EMLA cream and allopurinol 300 mg daily times 7 days starting the day prior to chemotherapy. Patient educated she will require vigorous oral and IV hydration and furosemide diuresis on days 1 through 3 of cycle 1. Greater than 50% of this one hour visit was spent in counseling and a significant amount of time was allotted for questions. All the patient's concerns were addressed to her satisfaction and she is agreeable to proceed. Tentatively, she will commence with cycle 1 on 10/07/2017. 4. For malignancy induced hypercoagulability advise long- term systemic anticoagulation. Patient was in agreement with aforementioned plan. Return to clinic 10/07/18 to review PET/CT with Dr. Berger and commence with cycle 1. Anastacia Joseph, MSN, [employer], AOCNP Medications: Prescriptions This Visit Medication Instructions Recorded Allopurinol [Zyloprim] 300 mg PO DAILY #36 tablet 09/24/18 Primary Care Provider: Mikey Diamond MD Referring Provider: - Problem List (1) Follicular lymphoma grade II Status: Acute (2) Hypercoagulable state Status: Acute (3) Educational circumstance Status: Acute 09/30/18 1310 <Electronically signed by Anastacia HERNANDEZC> Date Anastacia Joseph NP-C Cosigner Signature: Date (if applicable) CC: PET/CT TUMOR BASE Observed: 09/28/2018 Status: F Source: [place] [facility] 12:11 PM [facility] Services [address] [place] [id number] PET/CT Tumor Base -Thigh Init MR#: [id number] Acct: [id number] Name: NINFA SAM Rep #: [id number] : 1945 F 73 From: Donte Capps DO PCP: Mikey Diamond MD Status: REG RCR Study: PET/CT Tumor Base -Thigh Init Date of Exam: 09/28/18 Exam# [id number] Ordering Dr: Juani Berger MD EXAMINATION: FDG PET/CT INDICATIONS: A 73-year-old female with reported history of lymphoma presenting for initial staging examination. COMPARISON EXAMINATION: CT of the chest report dated 09/13/18, CT of the abdomen and pelvis report dated 09/10/18 INDEX LESION SIZE LUGANO SCORE SUV INTERPRETATION Right-left anterior, lateral neck, bilateral axilla, peristernal, cardiophrenic border 9.7 x 22.0-mm (largest) (frame 246) 5 7.8 (max) Fulfills quantitative criteria for viable neoplasm Mediastinal structures, aorticopulmonary window 26.1-mm (largest) (frame 196) 5 10.2 (max) Fulfills quantitative criteria for viable neoplasm Abdominal-pelvic retroperitoneum and mesentery, upper abdomen, retrocrural, right-left inguinal regions 30.9 x 62.7-mm (largest) (frame 64) 5 24.5 (max) Fulfills quantitative criteria for viable neoplasm NON-INDEX LESION SIZE LUGANO SCORE SUV INTERPRETATION Bilateral hemithorax pulmonary parenchyma 3 1.9 (max) Quantitative criteria for viable neoplasm are not fulfilled TECHNIQUE: Following the intravenous administration of 13.1 mCi of F-18 deoxyglucose via the right antecubital fossa, multiplanar image acquisitions of the neck, chest, abdomen and pelvis to level of mid thigh, obtained at one hour post radiopharmaceutical administration contemporaneously interpreted with the current CT of the neck, chest, abdomen and pelvis to level of mid thigh, dated 09/28/[address] of chest report dated 09/13/18, CT of the abdomen and pelvis report dated 09/10/18 reveal: SERUM GLUCOSE LEVEL: 80 mg/dl. HEIGHT: 63 inches. WEIGHT: 110 lbs. FINDINGS: 1. Multifocal increased glucose concentration is defined in the bilateral-lateral neck to include the anatomic distributions of level IIA, III, right and left axillary regions, midline and right cardiophrenic border, peristernal to the left of the midline, as well as anterior neck involving level IV to the left of the midline and right paramedian level . The calculated maximal standard uptake value is 7.8. The maximal axial diameter of the largest metabolic, morphologic abnormality on review of CT of the neck-thorax dated 09/28/18 is 9.7-mm (transverse) x 22.0-mm (AP). The Lugano Deauville score is 5. 2. Enhanced FDG PET study concentration is identified in the pre-carinal level anterior and middle mediastinum, region of the aorticopulmonary window. The calculated maximal standard uptake value is 10.2. The Lugano Deauville score is 5. The maximal axial diameter of the largest individual metabolic, morphologic abnormality on review of CT of the chest dated 09/28/18 is approximately 26.1-mm (AP). 3. Multiple foci of increased radiopharmaceutical concentration are demonstrated in the abdominal-pelvic retroperitoneum and mesentery, the upper abdomen in the retrocrural regions, bilateral inguinal lymph node distributions. The calculated maximal standard uptake value is 24.5. The Lugano Deauville score is 5. The maximal axial diameter of the largest individual metabolic, morphologic abnormality on review of CT of the abdomen and pelvis dated 09/28/18 is 30.9-mm (transverse) x 62.7-mm (AP). 4. Mild increased FDG concentration is demonstrated in the right lower anterolateral and left lower anterior hemithorax with a calculated maximal standard uptake value of 1.9. The Lugano Deauville score is 3. 5. Normal physiologic distribution of the radiopharmaceutical is apparent in the hepatic (1.8) and splenic parenchyma, both renal units, bladder and visualized intestinal tract. The visualized portion of the cerebral cortex demonstrate symmetric and preserved glucose metabolism. Diffuse radiopharmaceutical concentration is noted in all four quadrants of the abdomen and pelvis. Prominent radiopharmaceutical concentration appears evident in several lumbar vertebrae in proximity to the intervertebral disc spaces most consistent with degenerative arthritis. Pertinent CT findings are as follows: CHEST: Jorge-cath placement is noted. There is atherosclerotic calcification defined in the thoracic aorta without evidence of dilatation-aneurysm formation. Coronary arterial calcification is observed. Calcified and non-calcified mediastinal soft tissue densities are non-glucose avid. Bilateral hemithorax pleural effusions demonstrate no evidence of quantitatively significant increased glucose metabolism. ABDOMEN AND PELVIS: There is atherosclerotic calcification defined in the abdominal aorta without evidence of dilatation-aneurysm formation. Pelvic arterial calcification are not identified. SKELETAL: Degenerative changes are noted in the cervical, thoracic and lumbar spine. A sclerotic density is defined at the level of the tenth thoracic vertebra. PET/PET/CT Tumor Base -Thigh Init IMPRESSION: 1. ABNORMAL EXAMINATION INDICATIVE OF MALIGNANT VIABLE NEOPLASM. 2. Increased glucose concentration observed in the bilateral anterior and lateral neck, right-left axillary regions fulfills quantitative criteria for viable neoplasm. 3. Mediastinal hypermetabolic foci fulfill quantitative criteria for malignant transformation. 4. The increase in FDG uptake visualized in the abdominal and pelvic retroperitoneum and mesentery, the retrocrural regions and bilateral inguinal lymph node distributions fulfills quantitative criteria for malignant transformation. 5. Facilitated uptake identified in the bilateral lung coker do not fulfill quantitative criteria for viable neoplasm. Electronic Signature Donte Capps D.O. Electronically Signed: Donte Capps DO at 21:33 EST Tel , Service support , CC: Mikey Diamond MD; Juani Berger MD Jail Keeper: Signed EMERGENCY DEPARTMENT Observed: 09/25/2018 Status: F Source: [place] SUMMARY 11:52 PM [facility] Medical Records Department [address] [place] [address] Emergency Department Summary 09/25/18 2303 MR#: [id number] Acct: [id number] Name: NINFA SAM Rep #: [id number] : 1945 73 From: Jocelyn Marquez MD PCP: Eric ALEX,Jacob Brewer Status: DEP ER - ER Visit Summary Date of Service: 09/25/18 Chief Complaint: Right leg swelling History of Present Illness: The patient is a 73 F with history of lymphoma, DVT and PE. She is currently on Eliquis. Patient was in the TCU the through the . She states today her right leg is more swollen. It is not painful. It is wanted to be sure that she did not have a new blood clot. Patient is on 2 L nasal cannula chronically for dyspnea and denies any change in her shortness of breath. Physical Examination: Vital signs unremarkable. O2 sat is 94% on 2 L. Patient sitting upright in bed no acute distress. Heart is regular rate and rhythm. Lung sounds are clear. Abdomen is soft nontender. Lower extremity examination was 1+ left lower extremity edema with 2-3+ right lower extremity edema. There is no focal tenderness. There is no sign of cellulitis. Strong distal pulses are noted. Test Results: [] Emergency Department Course and Treatment: Venous ultrasound of the right leg reveals chronic nonocclusive DVT of the right popliteal vein. No evidence of acute DVT. Test results are discussed with patient and daughters at bedside. She will continue her Eliquis. She will also continue her Lasix and be sure to elevate her legs. Treatment Plan: [] Disposition: Discharge Impression: Chronic DVT right leg This note was generated with [employer] software. It may contain incorrect words, spelling, and punctuation that were not noted in review of the chart prior to signing ED Disposition - Plan for ED Patient: Chief Complaint: Lower Extremity Injury Referrals: Jacob Reyes Chi, MD [Primary Care Provider] - What to do if you have Problems For any increased pain, shortness of breath, bleeding, nausea or vomiting, chest pain, or any unexpected problems, contact your Primary Care Provider. Call [facility] ([phone]) or report to the closest Emergency Room. Call 911 if necessary. 09/25/18 2352 <Electronically signed by Jocelyn Marquez MD> Date Jocelyn Marquez MD Cosigner Signature (If Indicated): Date CC: Jacob Reyes MD DISCHARGE INSTRUCTION Observed: 09/25/2018 Status: F Source: [place] 11:06 PM [facility] Medical Records Department [address] [place] [address] Discharge Instruction 09/25/182305 MR#: [id number] Acct: [id number] Name: NINFA SAM Rep #: [id number] : 1945 73 From: Jocelyn Marquez MD PCP: Jacob Reyes MD, Chi Status: REG ER ED Disposition - Plan for ED Patient: Disposition: Home or Assisted Living Chief Complaint: Lower Extremity Injury Instructions: ED Leg Swelling Unilateral Referrals: Jacob Reyes Chi, MD [Primary Care Provider] - What to do if you have Problems For any increased pain, shortness of breath, bleeding, nausea or vomiting, chest pain, or any unexpected problems, contact your Primary Care Provider. Call [facility] ([phone]) or report to the closest Emergency Room. Call 911 if necessary. 09/25/182305 <Electronically signed by Jocelyn Marquez MD> Date Jocelyn Marquez MD Cosigner Signature (If Indicated): Date CC: Jacob Reyes MD VENOUS DUPLEX Observed: 09/25/2018 Status: F Source: K[place] IMAG/YE EXTREM 9:44 PM [facility] Imaging Services [address] [place] [address] Venous Duplex Imag/Ye Extrem MR#: [id number] Acct: [id number] Name: NINFA SAM Rep #: [id number] : 1945 F 73 From: Luke Tong MD PCP: Jacob Reyes MD, Chi Status: REG ER Study: Venous Duplex Imag/Ye Extrem Date of Exam: 09/25/18 Exam# [id number] Ordering Dr: Jocelyn Marquez MD STUDY: VENOUS DOPPLER ULTRASOUND - BILATERAL LOWER EXTREMITIES REASON FOR EXAM: Female, 73 years old. Right leg swelling TECHNIQUE: Ultrasound evaluation of the deep vein system to include sims-scale imaging and compression was performed. Sims-scale imaging and Doppler sonographic evaluation, including duplex spectral analysis and qualitative color flow sonography, was performed. COMPARISON: None. FINDINGS: RIGHT LEG Common Femoral Vein: Normal compression, spontaneity and augmentation. Normal color Doppler. Common Femoral Vein/Greater Saphenous Junction: Normal compression. No internal echoes are seen. Deep Femoral Vein: Not imaged Femoral Proximal: Normal compression. No internal echoes are seen. Femoral Middle: Normal compression, spontaneity and augmentation. Normal color Doppler. Femoral Distal: Normal compression. No internal echoes are seen. Popliteal Vein: Partially compressible. Internal echoes are seen consistent with chronic DVT. Color flow is noted. Posterior Tibial Vein: Normal compression. No internal echoes are seen. Peroneal Vein: Normal compression. No internal echoes are seen. LEFT LEG Common Femoral Vein: Normal compression, spontaneity and augmentation. Normal color Doppler. Common Femoral Vein/Greater Saphenous Junction: Normal compression. No internal echoes are seen. Deep Femoral Vein: Not imaged Femoral Proximal: Normal compression. No internal echoes are seen. Femoral Middle: Normal compression, spontaneity and augmentation. Normal color Doppler. Femoral Distal: Normal compression. No internal echoes are seen. Popliteal Vein: Normal compression, spontaneity and augmentation. Normal color Doppler. Posterior Tibial Vein: Normal compression. No internal echoes are seen. Peroneal Vein: Normal compression. No internal echoes are seen. 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 N.B. : The above information has been verbally conveyed by Luke Tong MD to Jocelyn Marquez MD, on 09/25/2018 23:01:09 (ET). Electronically Signed: Luke Tong MD at 22:52 EST , Service support , CC: Jocelyn Marquez MD; Jacob Reyes MD Jail Keeper: Signed ONCOLOGY VISIT REPORT Observed: 09/24/2018 Status: F Source: [place] 11:53 AM [facility] Medical Oncology [facility] [place] [address] OFFICE VISIT Date of Service: 09/24/18 1122 MR#: [id number] Acct: [id number] Name: NINFA SAM Gerardo Rep #: [id number] : 1945 From: Juani Berger MD Age/Sex: 73/F Location: OMD Status: Signed - Problem List (1) Follicular lymphoma grade II Status: Acute (2) Pleural effusion, bilateral Status: Acute (3) Pulmonary embolism Status: Acute - Date of Service Date of Service:: 09/24/18 - Chief Complaint Lymphoma - History of Present Illness Patient is a 73-year-old female who over [...] may represent metastatic lesion. September 11, 2018: Core biopsies from right inguinal lymph node flow cytometry consistent with B-cell lymphoma but pathology could not further subclassify. September 18, 2018: Excisional biopsy right groin lymph node and excision of a left axillary subcutaneous mass: A. Left axillary skin lesion, biopsy: Follicular center lymphoma, grade 1-2. B. Right inguinal lymph node, biopsy: Follicular center lymphoma, grade 2. In the interim, the patient was hospitalized September 13, 2018 with worsening dyspnea and was found to have bilateral lower extremities DVT, bilateral pulmonary embolism and rapidly reaccumulating pleural effusions. She had the pleural fluid drained and was placed on systemic anticoagulation then admitted to the inpatient rehab unit and is expected to be discharged September 24, 2018. - Past Medical/Social History Social History Smoking Status Never smoker Review of Systems Constitutional:: Reports: Weakness, Fatigue, Weight loss, Appetite change. Denies: Fever, Sweats, Chills Cardiovascular:: Reports: Dyspnea on exertion - She is on oxygen, dyspnea limits activities. Denies: Chest pain, Palpitations, Orthopnea, PND, Shortness of breath Respiratory: Reports: Shortness of breath upon exertion. Denies: Cough, Hemoptysis, Shortness of Breath, Wheezing Gastrointestinal:: Denies: Abdominal pain, Nausea, Vomiting, Diarrhea, Constipation, Hematochezia Genitourinary: Denies: Dysuria, Hematuria, 15, Flank pain Musculoskeletal:: Denies: Back pain, Myalgia, Arthralgia Skin: Reports: Wounds - Left axilla wound still healing with some serous drainage. Denies: Rash, Skin Changes Neurological:: Denies: Headache, Dizziness, Visual changes, Tinnitus, Hearing loss Psychiatric: Denies: Anxiety, Depression, Homicidal Ideations, Suicidal Ideations Vital Signs Height 5 ft 3 in Weight: 50.258 kg Weight in Pounds 110.8 lbs Pulse Ox 100 - Physical Exam General: Alert, Oriented x3, No apparent distress, - - ECOG 2 HEENT: Atraumatic, PERRLA, EOMI, Normocephalic Oropharynx:: Dry mucosa Neck:: Supple, Trachea midline, - - Port okay. Negative for: JVD, bilateral Cardiac:: Regular rate, Regular rhythm, Normal S1, Normal S2. Negative for: Murmur Lungs: Clear to auscultation, Diminished - Over both bases, more on the left side consistent with bilateral effusions small, Excusion symmetrical. Negative for: Rhonchi, Wheezes Abdomen:: Soft, Non-tender, Non-distended. Negative for: Hepatosplenomegaly Extremities:: Negative for: Cyanosis, Edema Neurological: Neuro grossly intact Skin:: Negative for: Lesions, Rash, Petechiae, Ecchymosis Psychiatric:: Appropriate affect, Euthymic Lymphatics:: Axillary lymphadenopathy. 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 Illness complicated with bilateral lower extremities DVTs and pulmonary embolism probably secondary to malignancy induced hyper coagulable state. Plan: 1. PET/CT to complete staging and rule out any areas of concern of aggressive transformation that may require a biopsy to confirm and change of treatment. 2. We will hold off a bone marrow biopsy (patient is stage IV, she is on systemic anticoagulation and recent PE and would favor not holding anticoagulation unless necessary, we will not change treatment plan, and may be confirmed on PET/CT) 3. Unless there is evidence to suggest aggressive transformation, after review of NCCN guidelines and the up-to-date review follicular lymphoma I advise 6 cycles of systemic therapy with a combination of bendamustine and Rituxan. Following recent data showing increased toxicity from standard dosing of bendamustine in patients above age 70, bendamustine dose will be adjusted down to 70mg/m body surface area on days 1 and 2 of each cycle. 4. Tumor lysis prophylaxis during cycle 1 of therapy to consist of allopurinol 300 mg daily for 7 days starting day before starting chemotherapy and vigorous oral and IV hydration and furosemide diuresis on days 1-3 of cycle 1. 5. For malignancy induced hypercoagulability advise long- term systemic anticoagulation. Patient was seen was her family ( and daughter) impression and plan discussed, she is anticipating going home today September 24, 2018, scheduled for PET/CT September 28, 2018 and will schedule a formal chemo teaching session within the upcoming week. She is tentatively plan to start therapy October 07, 2017 Medications: Prescriptions This Visit Medication Instructions Recorded Allopurinol 300 mg PO DAILY 7 Days #7 tablet 09/24/18 Allopurinol [Zyloprim] 300 mg PO DAILY #36 tablet 09/24/18 Primary Care Provider: Mikey Diamond MD Referring Provider: 09/24/18 1153 <Electronically signed by Juani Berger MD> Date Juani Berger MD Cosigner Signature: Date (if applicable) CC: Mikey Diamond MD DISCHARGE SUMMARY Observed: 09/23/2018 Status: F Source: [place] 9:16 PM [facility] Medical Records Department [address] [place] [address] Discharge Summary 09/23/182112 MR#: [id number] Acct: [id number] Name: NINFA SAM Rep #: [id number] : 1945 73 From: Jacob Reyes MD PCP: Mikey Diamond MD Status: ADM IN Y Location: [place] [address] Discharge Date and Diagnosis - Problem List Patient Problems: Active and Suspected Problems (Last Updated 09/13/18 @ 14:06 by Kamryn Pirnce MD) Follicular lymphoma grade II (Acute) Shortness of breath (Acute) Date of Admission: 09/19/18 Date of Discharge: 09/24/18 - Primary Discharge Diagnosis Active and Suspected Problems (Last Updated 09/13/18 @ 14:06 by Kamryn Prince MD) Follicular lymphoma grade II (Acute) Shortness of breath (Acute) - Secondary Discharge Diagnosis Chronic Problems (Last Updated 09/13/18 @ 14:06 by Kamryn Prince MD) Hyperthyroidism (Chronic) Weight loss, non-intentional (Chronic) Pelvic mass in female (Chronic) IBS (irritable bowel syndrome) (Chronic) controlled with diet History of hyperthyroidism (Chronic) Hospital Course and Treatment Imaging Results: 09/21/18 11:06 Diet: Regular Diet Liquid Consistency:: Odin Thick Dietary Modifications:: Odin Thick Liquids Is pt able to select menu?: Yes 09/28/18 06:00 NPO [Diet: Nothing Per Oral] Dietary Modifications:: Odin Thick Liquids Is pt able to select menu?: Yes Operations: None Procedures: None Summary of Care Provided: The patient is a 73 year old Female with below past medical history hospitalized for bilateral pulmonary emboli, bilateral lower extremity DVT secondary to newly diagnosed B cell lymphoma, admitted to TCU with debility, here for rehabilitation, strengthening, prior to discharge home with spouse to start chemotherapy. Needs Modified barium swallowing study as outpatient. Discharge home with spouse. Patient Problems: Active and Suspected Problems (Last Updated 09/13/18 @ 14:06 by Kamryn Prince MD) Follicular lymphoma grade II (Acute) Shortness of breath (Acute) - Physical Exam Vital Signs Temp Pulse Resp BP Pulse Ox 97.5 F L 92 16 125/64 H 95 09/23/18 15:16 09/23/18 15:16 09/23/18 15:16 09/23/18 15:16 09/23/18 15:16 Oxygen Flow Rate (L/min) 2 Oxygen Delivery Method Room Air Weight: 50.491 kg Body Mass Index (BMI) 20.0 Intake and Output for Last 24 Hours Intake Total 960 / 960 960 / 960 600 / 600 Balance 960 / 960 960 / 960 600 / 600 Discharge Diet: - - Odin thick liquids. Discharge Activity: Return to Normal Activity, May Shower, Use Walker Weight Bearing Status: Weight bearing as tolerated Call your doctor if you observe: Fever of 101 or Higher, Inability to urinate, Inability to have a bowel movement, Shortness of breath, Chest pain, Uncontrolled pain Home Medications: Medications to take at Discharge Acetaminophen [Tylenol] 1,000 mg PO Q8H PRN tablet 09/23/18 Albuterol Aerosols [Ventolin Aerosols] 2.5 mg INHALATION Q4H PRN PRN #30 vial.neb. 09/23/18 Albuterol Inhaler [Ventolin Hfa] 1 - 2 puff INHALATION Q4H PRN PRN #1 inhaler 09/23/18 Apixaban [Eliquis] 5 mg PO BID #60 tablet 09/23/18 Apixaban [Eliquis] 10 mg PO BID #12 tablet 09/23/18 Furosemide [Lasix] 20 mg PO DAILY #30 tablet 09/23/18 Menthol/Lanolin/Calamine/Znox [Calmoseptine Ointment] 1 applic TOPICAL 0600,2200 tube 09/23/18 Polyethylene Glycol 3350 [Miralax] 17 gm PO DAILY #30 packet 09/23/18 Following Prescrptions Were Given to Patient: Albuterol Aerosols [Ventolin Aerosols] 2.5 mg INHALATION Q4H PRN PRN #30 vial.neb. PRN Reason: Shortness of breath, wheezing Albuterol Inhaler [Ventolin Hfa] 1 - 2 puff INHALATION Q4H PRN PRN #1 inhaler PRN Reason: Shortness Of Breath Furosemide [Lasix] 20 mg PO DAILY #30 tablet Polyethylene Glycol 3350 [Miralax] 17 gm PO DAILY #30 packet Apixaban [Eliquis] 10 mg PO BID #12 tablet Apixaban [Eliquis] 5 mg PO BID #60 tablet Primary Care Physician: Jacob Reyes Chi, MD [COURTESY STAFF PHYSICIAN] - Please follow up with your Primary Care Physician in: 6 days Please Follow Up With: Juani Berger MD When: 6 days Please Follow Up With: Jacob Reyes Chi, MD When: after discharge Please Follow Up With: PET SCAN Please Follow Up With: Dr Berger Disposition: Home Minutes spent on discharge:: 30 Patient Condition:: Stable Medical Necessity - Tobacco Use Smoking Status: Never smoker Tobacco Use: Non-smoker Meaningful Use Info Meaningful Use Diagnoses (Choose all that apply): None applicable 09/23/182115 <Electronically signed by Jacob Reyes MD> Date Jacob Reyes MD Cosigner Signature (if applicable): Date CC: Mikey Diamond MD; Jacob Reyes MD Signed DISCHARGE INSTRUCTION Observed: 09/23/2018 Status: F Source: [place] 9:13 PM [facility] Medical Records Department [address] [place] [address] Instructions for Home/Discharge Instructions 09/23/182109 MR#: [id number] Acct: [id number] Name: NINFA SAM Rep #: [id number] : 1945 73 From: Jacob Reyes MD PCP: Mikey Diamond MD Status: ADM IN - Discharge Diagnoses Current Active Problems: Current Active and Chronic Problems (Last Updated 09/13/18 @ 14:06 by Kamryn Prince MD) Follicular lymphoma grade II (Acute) Shortness of breath (Acute) Hyperthyroidism (Chronic) You will use the following diet at home:: No restrictions, Regular Your food should be the consistency of: Regular Your liquids should be the consistency of: Regular/Thin Discharge Activity: Return to Normal Activity, May Shower, Use Walker Weight Bearing Status: Weight bearing as tolerated Call your doctor if you observe: Fever of 101 or Higher, Inability to urinate, Inability to have a bowel movement, Shortness of breath, Chest pain, Uncontrolled pain Allergies/Adverse Reactions: Allergies No Known Allergies Allergy (Verified 09/13/18 11:54) Medications to take at Discharge Acetaminophen [Tylenol] 1,000 mg PO Q8H PRN tablet 09/23/18 Albuterol Aerosols [Ventolin Aerosols] 2.5 mg INHALATION Q4H PRN PRN #30 vial.neb. 09/23/18 Albuterol Inhaler [Ventolin Hfa] 1 - 2 puff INHALATION Q4H PRN PRN #1 inhaler 09/23/18 Apixaban [Eliquis] 5 mg PO BID #60 tablet 09/23/18 Apixaban [Eliquis] 10 mg PO BID #12 tablet 09/23/18 Furosemide [Lasix] 20 mg PO DAILY #30 tablet 09/23/18 Menthol/Lanolin/Calamine/Znox [Calmoseptine Ointment] 1 applic TOPICAL 0600,2200 tube 09/23/18 Polyethylene Glycol 3350 [Miralax] 17 gm PO DAILY #30 packet 09/23/18 The following prescriptions were given: Albuterol Aerosols [Ventolin Aerosols] 2.5 mg INHALATION Q4H PRN PRN #30 vial.neb. PRN Reason: Shortness of breath, wheezing Albuterol Inhaler [Ventolin Hfa] 1 - 2 puff INHALATION Q4H PRN PRN #1 inhaler PRN Reason: Shortness Of Breath Furosemide [Lasix] 20 mg PO DAILY #30 tablet Polyethylene Glycol 3350 [Miralax] 17 gm PO DAILY #30 packet Apixaban [Eliquis] 10 mg PO BID #12 tablet Apixaban [Eliquis] 5 mg PO BID #60 tablet Primary Care Physician: Jacob Reyes Chi, MD [COURTESY STAFF PHYSICIAN] - Please follow up with your Primary Care Physician in: 6 days Test Results: Test results from this visit will be discussed in further detail at your follow-up appointment, if applicable. Please Follow Up With: Juani Berger MD When: 6 days Please Follow Up With: PET SCAN Proposed Discharge Date: 09/24/18 09/23/182112 <Electronically signed by Jacob Reyes MD> Date Jacob Reyes MD CC: Mikey Diamond MD 12 LEAD ELECTROCARDIOGRAM Observed: 09/21/2018 Status: F Source: [place] 7:49 AM [facility] Cardiovascular Services [address] [place] [address] 12 Lead EKG 09/17/182008 MR#: [id number] Acct: [id number] Name: NINFA SAM Rep #: [id number] : 1945 73 From: Dirk Soto MD Attending Dr: Kamryn Prince Status: DIS IN Ordering Dr: Kamryn Prince MD Date: 09/17/18 Location: [facility] Sex: F C Admitted: 09/13/18 Test Reason [...] No significant change was found Confirmed by DIRK SOTO MD ([id number]), fashion editor RACHELLE VALERO ([id number]) on 09/21/2018 7:49:38 AM Referred By: Kamryn Prince Confirmed By:DIRK SOTO MD 09/21/18 0749 Date Dirk Soto MD CC: Mikey Diamond MD; Kamryn Prince Signed 12 LEAD ELECTROCARDIOGRAM Observed: 09/21/2018 Status: F Source: KIP 7:47 AM [facility] Cardiovascular Services [address] [place] [address] 12 Lead EKG 09/18/18 0433 MR#: [id number] Acct: [id number] Name: NINFA SAM Rep #: [id number] : 1945 73 From: Dirk Soto MD Attending Dr: Kamryn Prince Status: DIS IN Ordering Dr: Bi Garcia MD Date: 09/18/18 Location: [facility] Sex: F C Admitted: 09/13/18 Test Reason [...] COMPARISON REQUIRED, DATA IS UNCONFIRMED Confirmed by CHARLES ALEX, DIRK ([id number]), fashion editor RACHELLE VALERO ([id number]) on 09/21/2018 7:47:40 AM Referred By: Kamryn Prince Confirmed By:DIRK SOTO MD 09/21/18 0747 Date Dirk Soto MD CC: Bi Garcia MD; Mikey Diamond MD; Kamryn Prince Signed CBC W/DIFF, AUTOMATED Collected: 09/20/2018 Status: F Source: [place] 7:58 AM [facility] TYPE CODE TESTS RESULT OUT OF [...] Lymph 0.53 Performed By: #### L100.0100 #### [facility] [address] [place], [address] BASIC METABOLIC Collected: 09/20/2018 Status: F Source: [place] PROFILE ([facility]) 7:58 AM [facility] TYPE CODE TESTS RESULT OUT OF [...] GAP 7 Performed By: #### L500.2500 #### [facility] [address] [facility] [place], [address] HISTORY AND PHYSICAL Observed: 09/19/2018 Status: F Source: [place] EXAM 5:59 PM [facility] Medical Records Department [address] [place] [address] History and Physical 09/19/18 1702 MR#: [id number] Acct: [id number] Name: NINFA SAM Rep #: [id number] : 1945 73 From: Jacob Reyes MD PCP: Mikey Diamond MD Status: ADM IN Location: [place] [address] ADDENDUM by Jacob Reyes MD on 09/19/18 at 1759 Code Visit Sacral pressure ulcer - Stage 1, present on admission. 09/19/18 1759 <Electronically signed by Jacob Reyes MD> Date [...] with below past medical history presented to [facility] Emergency Department 09/13/2018 with increasing shortness of [...] biopsy lymph node, port placement. 09/18/2018 Dr. Berger recommends open lymph node biopsy, port placement, [...] lump, 1990s, benign History of thoracentesis Z98.890 [facility] 09/01/18 Surgical History: - - Lumpectomy, Thoracentesis, port placement, right inguinal excisional lymph node biopsy. 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 Berger upon discharge from [facility]. 09/19/18 1723 <Electronically signed by Jacob Reyes MD> Date Jacob Reyes MD Cosigner Signature: Date (if applicable) CC: Mikey Diamond MD; Jacob Reyes MD Signed DISCHARGE SUMMARY Observed: 09/19/2018 Status: F Source: [place] 12:53 PM [facility] Medical Records Department [facility] [place] [address] Discharge Summary 09/19/18 1241 MR#: [id number] Acct: [id number] Name: NINFA SAM Rep #: [id number] : 1945 73 From: Kamryn Prince MD PCP: Mikey Diamond MD Status: ADM IN Y Location: [place] [address] Discharge Date and Diagnosis - Problem List [...] by Selene Caro MD to Christian Lopez [phone], on 09/13/2018 14:31:10 (ET). Electronically Signed: Selene Caro MD at 14:20 EST Tel , Service support , ADDENDUM: 09/13/18 1438 Thoracentesis Ultrasound 09/14/18 08:00 IMPRESSION: Ultrasound-guided left thoracentesis. Electronically Signed: Chris Alfaro MD at 15:36 EST Tel [phone], Service support , Chest X-Ray 09/14/18 15:08 IMPRESSION: Status post left thoracentesis. There is no evidence of pneumothorax. Small bilateral pleural effusions with underlying atelectasis. Electronically Signed: Chris Alfaro MD at 8:33 EST Tel [phone], Service support , Chest X-Ray 09/18/18 15:40 IMPRESSION: The tip of the right jorge catheter is in the right atrium. Interval increase in size of the bilateral pleural effusions with bibasilar atelectasis and/or infiltrates worse on the left side. Electronically Signed: Chris Alfaro MD at 15:51 EST Tel [phone], Service support , Dr. Norman, pulmonology/critical care. [...] 2 weeks. This note was generated with Nu[employer]ista [employer] software. It may contain incorrect words, spelling, [...] 3-4 days. Please call his office. Disposition: Alf facility Minutes spent on discharge:: 36 Patient Condition:: Stable Medical Necessity - Tobacco Use Smoking Status: Never smoker Meaningful Use Info Meaningful Use Diagnoses (Choose all that apply): None applicable Code Visit Inpatient E AND M: 56311 Disch Hosp 09/19/18 1253 <Electronically signed by Kamryn Prince MD> Date Kamryn Prince MD Cosigner Signature (if applicable): Date CC: Bi Garcia MD; Junaid Norman MD; Mikey Diamond MD; Kamryn Prince; Juani Berger MD Signed TRANSFER TO [facility] Observed: 09/19/2018 Status: F Source: [facility] 8:53 AM [facility] RE[facility] Medical Records Department [address] [place] [address] Transfer to Extended Care MR#: [id number] Acct: [id number] Name: NINFA SAM Rep #: [id number] : 1945 73 From: Kamryn Prince MD PCP: Mikey Diamond MD Status: ADM IN NINFA SAM (Patient) (Health Ins. Claim No.) (Day of Discharge to Facility) Certification of patient admission REQUIRED AT TIME OF ADMISSION. I CERTIFY THAT POST-HOSPITAL ECF SERVICES ARE REQUIRED TO BE GIVEN ON AN IN-PATIENT BASIS BECAUSE OF THE ABOVE NAMED PATIENT'S NEED FOR HALF-WAY CARE ON A CONTINUING BASIS FOR THE [...] 09/19/2018 Status: F Source: KIP 3:50 AM [facility] TYPE CODE TESTS RESULT OUT OF [...] LYMPHOPENIA NOTED Performed By: #### L100.0100 #### [facility] [address] [place], [place], [id number] PARTIAL THROMBOPLAST Collected: 09/19/2018 Status: F Source: [place] TIME 3:50 AM [facility] TYPE CODE TESTS RESULT OUT OF REFERENCE UNITS RANGE LAB L300.4310 24.1-36.2 Seconds High PTT 43.9 Performed By: #### L300.4310 #### [facility] [address] [facility]. [place], [place], [address] BASIC METABOLIC Collected: 09/19/2018 Status: F Source: KIP PROFILE (BMP) 3:50 AM [facility] TYPE CODE TESTS RESULT OUT OF [...] GAP 7 Performed By: #### L500.2500 #### [facility] [address] [place], [address] PARTIAL THROMBOPLAST Collected: 09/18/2018 Status: F Source: KIP TIME 8:05 PM [facility] TYPE CODE TESTS RESULT OUT OF RANGE REFERENCE UNITS LAB L300.4310 24.1-36.2 Seconds Normal PTT 29.4 Performed By: #### L300.4310 #### [facility] [address] [facility] [place], [address] OPERATIVE REPORT Observed: 09/18/2018 Status: F Source: KIP 4:00 PM [facility] Medical Records Department [address] [facility] [place] [address] Operative Report 09/18/18 1554 MR#: [id number] Acct: [id number] Name: NINFA SAM Rep #: [id number] : 1945 73 From: Bi Garcia MD PCP: Mikey Diamond MD Status: ADM IN Y Location: [place] [id number] ADDENDUM by Bi Garcia MD on 09/18/18 [...] Next the fascia was reapproximated with 2 dknrbe-vf-[id number] 3-0 Vicryl sutures. Next the skin was closed with interrupted 3-0 Vicryl sutures as well as Dermabond. Patient tolerated procedure well, was taken to PACU in stable condition. Chest x-ray will be obtained. Patient will resume heparin in 6 hours. Grafts/Implants Used: 8 [employer] - Admit VTE Documentation VTE Present on Admission: Yes VTE Mechan Device Prophylaxis: SCD's VTE Pharm Prophylaxis ordered?: Yes 09/18/18 5741 <Electronically signed by Bi Garcia MD> Date Bi Garcia MD CC: Bi Garcia MD; Guicho Greenberg D.O.; Mikey Diamond MD; Kamryn Prince; Juani Berger MD Signed CXR FOR LINE PLACEMENT Observed: 09/18/2018 Status: F Source: KIP 3:35 PM [facility] Imaging Services [address] [place] [address] CXR for Line Placement MR#: [id number] Acct: [id number] Name: NINFA SAM Rep #: [id number] : 1945 F 73 From: Chris Alfaro MD PCP: Mikey Diamond MD Status: ADM IN Study: CXR for Line Placement Date of Exam: 09/18/18 Exam# [id number] Ordering Dr: Bi Garcia MD STUDY: X-RAY [...] Chris Alfaro MD at 15:51 EST Tel [phone], Service support , CC: Bi Garcia MD; Mikey Diamond MD Jail Keeper: Signed MISCELLANEOUS LAB Collected: 09/18/2018 Status: F Source: KIP PROCEDURE 1:10 PM [facility] RE[facility] Order Comment: Comments: [id number] lymphadenopathy Test(s) Ordered: Flow [id number] TYPE CODE TESTS RESULT OUT OF RANGE REFERENCE UNITS LAB L801.1541 Normal [facility] LAB FLOW SEE PATH TEST Performed By: #### L801.1541 #### [facility] [address] [place], [place], [address] HEPATITIS B/C PROFILE Collected: 09/18/2018 Status: F Source: KIP VIII 11:00 AM [facility] TYPE CODE TESTS RESULT OUT OF RANGE REFERENCE UNITS LAB L3100.0400 Negative Normal HB Negative SURF AG LAB L3100.0420 Negative Normal HEP Negative Be AG 6619 LAB L3100.0440 Negative Normal HB Negative CORE [id number] LAB L3100.0460 Negative Normal HEP B Negative [...] to indicate HCV infection. Performed at: - [facility] [address] [id number] Poultry Farm Manager: Earnest Milligan PhD, Phone: [phone] Performed By: #### L3000.0800 #### [facility] (refer to report for specific site) refer to report for address and phone number PARTIAL THROMBOPLAST Collected: 09/18/2018 Status: F Source: KIP TIME 7:10 AM [facility] TYPE CODE TESTS RESULT OUT OF REFERENCE UNITS RANGE LAB L300.4310 24.1-36.2 Seconds High PTT 50.4 Performed By: #### L300.4310 #### [facility] [address] [facility] [place], [address] THYROID STIM HORMONE Collected: 09/18/2018 Status: F Source: KIP (TSH) 7:10 AM [facility] TYPE CODE TESTS RESULT OUT OF RANGE REFERENCE UNITS LAB L501.9520 0.358-3.74 uIU/mL Normal TSH 2.70 Performed By: #### L501.9520 #### [facility] [address] [place], [address] URIC ACID Collected: 09/18/2018 Status: F Source: KIP 7:10 AM [facility] TYPE CODE TESTS RESULT OUT OF RANGE REFERENCE UNITS LAB L501.1400 2.6-6.0 mg/dL Normal URIC 3.5 Result Comment: The drugs N-Acetylcysteine and Metamizole may falsely depress this assay. Performed By: #### L501.1400 #### [facility] [address] [place], [address] PARTIAL THROMBOPLAST Collected: 09/18/2018 Status: F Source: KIP TIME 1:18 AM [facility] TYPE CODE TESTS RESULT OUT OF REFERENCE UNITS RANGE LAB L300.4310 24.1-36.2 Seconds High PTT 59.3 Performed By: #### L300.4310 #### [facility] [address] [facility] [place], [address] IMMUNOHISTOCHEMISTRY Observed: 09/18/2018 Status: F Source: KIP 12:00 AM [facility] Patient: NINFA SAM : 1945 (73/F) Acct Num: [id number] Phys: Kamryn Prince Unit Num: [id number] Loc: U [id number] Specimen: [id number] Received: 09/22/189 Spec Type: IMMUNO TISSUES 1 TISSUES: A. Skin of axilla, NOS B. Inguinal lymph node, NOS SPECIMEN INFORMATION: Tissue Source: A - Left axillary skin lesion, B - Right inguinal lymph node Clinical Info: Generalized lymphadenopathy Specimen Number: [id number] A2 [id number] B1 CPT code: 61324 x2, 17446 x38 METHODOLOGY: Deparaffinized sections of prefer/formalin-fixed tissue [...] CD138 (B-A38) negative BCL-2 (bcl-2/100/D5) positive BCL-6 (RT430G/A8) positive Cyclin D1/BCL-1 (SP4) negative [place] (polyclonal) negative Lambda (polyclonal) negative MUM1 (MRQ-43) positive C-MYC (Y69) negative Ki-67 (30-9) positive, low Block B1 AE1-3 (AE1/AE3/PCK26) negative CD3 (PS1) negative CD5 (SP10) negative CD10 (56C6) positive CD15 (MMA) negative CD20 (L26) positive CD23 (1B12) negative CD30 (Nomi-H2) negative CD43 (L60) negative CD45 (RP2/18) positive CD79a (11E3) positive CD138 (B-A38) negative BCL-2 (bcl-2/100/D5) positive BCL-6 (TY433X/A8) positive Cyclin D1/BCL-1 (SP4) negative [place] (polyclonal) negative Lambda (polyclonal) negative MUM1 (MRQ-43) positive C-MYC (Y69) negative Ki-67 (30-9) negative These tests were developed and their performance characteristics determined by [facility]. They may not have been cleared or approved by the U.S. Food and Drug Administration. The FDA has determined that such clearance or approval is not necessary. INTERPRETATION: A. 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 B. 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 AM:yolanda 09/22/18 PHYSICIAN AND INSTITUTION [facility] [address] [place] [address] Signed Aldair Garcia DO 09/22/18 <signature on file> Performed By: #### PIMM #### [facility] [address] [place], [place] [address]. [place], [place], [address] LYMPH [facility] Observed: 09/18/2018 Status: F Source: [place] RESECTION 12:00 AM [facility] Patient: NINFA SAM : 1945 (73/F) Acct Num: [id number] Phys: Kamryn Prince Unit Num: [id number] Loc: [facility] [id number] Specimen: [id number] Received: 09/18/18 - 1521 Spec Type: LYM NODES TISSUES 1 TISSUES: A. Skin of axilla, NOS B. Inguinal lymph node, NOS COMMENT The specimen is evaluated at the time of touch imprints by Dr. Moran. Immediate Evaluation = Small and large lymphocyte are noted. A AND B. Immunohistochemistry ([id number]) supports the above diagnosis. Flow cytometry analysis from [facility] shows CD10 positive clonal B-cell population. The flow cytometry report is viewable in patient's EMR. Case has been reviewed in consultation with Dr. Moran who concurs with the above diagnosis. IDC:SJ GROSS DESCRIPTION A - Received in formalin is one container labeled with the patient's name and designated left axillary skin lesion. The specimen consists of a polypoid piece of porras-white skin measuring 6.5 x 4 x 2.5 cm. Sections reveal porras, fleshy cut surfaces. Dock Operations Supervisor sections are submitted in four cassettes. B - Received in normal saline labeled with the patient's name is a specimen designated right inguinal lymph node in normal saline. The specimen consists of a piece of porras-pink soft tissue measuring 1.5 x 1 x 1 cm. The specimen is serially sectioned. A section is submitted for flow cytometry study. Four touch imprints are prepared, two stained with H AND E and two stained with Diff- Quik. The entire specimen is submitted in one cassette. / SJ:yolanda 09/18/18 TC: 0 CPT: 64117 x2 HEADER OPERATION: Insertion right internal jugular vascular port, excision PRE-OP DIAGNOSIS: Generalized lymphadenopathy TISSUE SUBMITTED: A - Left axillary skin lesion, B - Right inguinal lymph node in normal saline MICROSCOPIC DESCRIPTION Slides are reviewed. MICROSCOPIC DIAGNOSIS A. Left axillary skin lesion, biopsy: Follicular center lymphoma, grade 1-2. B. Right inguinal lymph node, biopsy: Follicular center lymphoma, grade 2. AM: 09/22/18 Signed Aldair Garcia, 09/23/18 <signature on file> Performed By: #### PLYM #### [facility] [address] [facility] [address] [place], [place], [address] PARTIAL THROMBOPLAST Collected: 09/17/2018 Status: F Source: [place] TIME 6:35 PM [facility] TYPE CODE TESTS RESULT OUT OF REFERENCE UNITS RANGE LAB L300.4310 24.1-36.2 Seconds High PTT 47.8 Performed By: #### L300.4310 #### [facility] [address] [place], [place], [address] PROTHROMBIN TIME W/INR Collected: 09/17/2018 Status: F Source: [place] 12:08 PM [facility]POS[facility] TYPE CODE TESTS RESULT OUT OF RANGE REFERENCE UNITS LAB L300.4150 11.7-14.9 SECONDS High PROTIME 15.8 LAB L300.4200 Normal INR 1.3 Performed By: #### L300.3900, L300.4310 #### [facility] [address] [place], [address] PARTIAL THROMBOPLAST Collected: 09/17/2018 Status: F Source: [place] TIME 12:08 PM [facility] TYPE CODE TESTS RESULT OUT OF RANGE REFERENCE UNITS LAB L300.4310 24.1-36.2 Seconds Normal PTT 26.5 Performed By: #### L300.3900, L300.4310 #### [facility] [address] [place], [place], [address] BASIC METABOLIC Collected: 09/17/2018 Status: F Source: KIP PROFILE (BMP) 5:15 AM [facility] TYPE CODE TESTS RESULT OUT OF [...] GAP 8 Performed By: #### L500.2500 #### [facility] [address] [place], [address] CBC W/DIFF, AUTOMATED Collected: 09/17/2018 Status: F Source: KIP 5:15 AM [facility] TYPE CODE TESTS RESULT OUT OF [...] Lymph 0.48 Performed By: #### L100.0100 #### [facility] [address] [facility] [place], [place], [address] PARTIAL THROMBOPLAST Collected: 09/16/2018 Status: F Source: KIP TIME 5:00 AM [facility] TYPE CODE TESTS RESULT OUT OF REFERENCE UNITS RANGE LAB L300.4310 24.1-36.2 Seconds High PTT 62.7 Performed By: #### L300.4310 #### [facility] [address] [place], [address] PARTIAL THROMBOPLAST Collected: 09/16/2018 Status: F Source: KIP TIME 12:15 AM [facility] Order Comment: Comments: Time sensitive-hep gtt TYPE CODE TESTS RESULT OUT OF REFERENCE UNITS RANGE LAB L300.4310 24.1-36.2 Seconds High PTT 62.3 Performed By: #### L300.4310 #### [facility] [address] [place], [place], [address] PARTIAL THROMBOPLAST Collected: 09/15/2018 Status: F Source: [place] TIME 6:03 PM [facility] TYPE CODE TESTS RESULT OUT OF REFERENCE UNITS RANGE LAB L300.4310 24.1-36.2 Seconds High PTT 71.0 Performed By: #### L300.4310 #### [facility] [address] [place], [place], [address] PARTIAL THROMBOPLAST Collected: 09/15/2018 Status: F Source: [place] TIME 10:30 AM [facility] TYPE CODE TESTS RESULT OUT OF RANGE REFERENCE UNITS LAB L300.4310 24.1-36.2 Seconds Normal PTT 33.5 Performed By: #### L300.4310 #### [facility] [address] [place], [place], [address] 12 LEAD ELECTROCARDIOGRAM Observed: 09/15/2018 Status: F Source: [place] 8:52 AM [facility] RE[facility]ITORY [facility] Cardiovascular Services [address] [place] [address] 12 Lead EKG 09/13/18 1226 MR#: [id number] Acct: [id number] Name: NINFA SAM Rep #: [id number] : 1945 73 From: Dirk Soto MD [...] ECG Confirmed by DIRK SOTO MD ([id number]), fashion editor RACHELLE VALERO ([id number]) on 09/15/2018 8:53:41 AM Referred By: Kamryn Prince Confirmed By:DIRK SOTO MD 09/15/18 0853 Date Dirk Soto MD CC: Mikey Diamond MD; Kamryn Prince; Christian Lopez MD Signed CONSULTATION Observed: 09/15/2018 Status: F Source: [place] 5:45 AM [facility] RE[facility]IT[facility] Medical Records Department [address] [place] [address] Consultation 09/14/18 0957 MR#: [id number] Acct: [id number] Name: NINFA SAM Rep #: [id number] : 1945 73 From: Junaid Norman MD [...] me from previous hospitalization, who presented to [facility] on 09/13/2018 secondary to worsening shortness of [...] care unit Patient had been recently seen [facility] with a pleural effusion that responded well [...] lump, 1990s, benign History of thoracentesis Z98.890 [facility] 09/01/18 Surgical History: no surgical history Psychiatric History: No pertinent psych hx 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 Electronically Signed: Selene [...] AM to 10 AM) Code Visit 9xxxx: [id number] Critical care first hour 09/15/18 0545 <Electronically signed by Junaid Noramn MD> Date Junaid Norman MD Cosigner Signature (if applicable): Date CC: Guicho Greenberg D.O.; Mikey Diamond MD; Kamryn Prince; Juani Berger MD Signed CBC W/DIFF, AUTOMATED Collected: 09/15/2018 Status: F Source: KIP 4:10 AM [facility] TYPE CODE TESTS RESULT OUT OF [...] Lymph 0.64 Performed By: #### L100.0100 #### [facility] [address] [place], [address] BASIC METABOLIC Collected: 09/15/2018 Status: F Source: [place] PROFILE ([facility]) 4:10 AM [facility] TYPE CODE TESTS RESULT OUT OF [...] GAP 8 Performed By: #### L500.2500 #### [facility] [address] [place], [address] PARTIAL THROMBOPLAST Collected: 09/15/2018 Status: F Source: KIP TIME 4:10 AM [facility] TYPE CODE TESTS RESULT OUT OF REFERENCE UNITS RANGE LAB L300.4310 24.1-36.2 Seconds High alert PTT 111.4 Result Comment: CRITICAL VALUE VERIFIED. CALLED TO BRANDY khalil 09/15/18 0433 Lesvia Gutierrez. RESULTS READ BACK BY SAME . Performed By: #### L300.4310 #### [facility] [address] [place], [address] PARTIAL THROMBOPLAST Collected: 09/14/2018 Status: F Source: KIP TIME 10:15 PM [facility] TYPE CODE TESTS RESULT OUT OF REFERENCE UNITS RANGE LAB L300.4310 24.1-36.2 Seconds High PTT 51.7 Performed By: #### L300.4310 #### [facility] [address] [facility] [facility] [place], [address] CONSULTATION Observed: 09/14/2018 Status: F Source: KIP 4:44 PM [facility] RE[facility]IT[facility] Medical Records Department [address] [place] [address] Consultation 09/14/18 1630 MR#: [id number] Acct: [id number] Name: NINFA SAM Gerardo Rep #: [id number] : 1945 73 From: Juani Berger MD [...] Document 09/13/18 16:48 ALLEN (Rec: 09/13/18 16:53 ALLEN [id number]) BMI Required to complete PMH What is [...] Months No Nurse F[facility] Questions: Date: 09/13/18 Time: 16:52 Psycho/Social Medical [...] verbally conveyed by Selene Caro MD to [facility] [phone], , on 09/13/2018 14:31:10 (ET). Electronically Signed: Selene Caro MD at 14:20 EST Tel , Service support , ADDENDUM: 09/13/18 9358 Assessment and Plan 73-year-old female with: 1. [...] Diamond MD Referring Provider: Himanshu Duran 09/14/18 6594 <Electronically signed by Juani Berger MD> Date Juani Berger MD Cosigner Signature (if applicable): Date CC: Guicho Greenberg D.O.; Mikey Diamond MD; Kamryn Prince; Juani Berger MD Signed PROTHROMBIN TIME W/INR Collected: 09/14/2018 Status: F Source: KIP 4:00 PM [facility] TYPE CODE TESTS RESULT OUT OF RANGE REFERENCE UNITS LAB L300.4150 11.7-14.9 SECONDS Normal PROTIME 14.8 LAB L300.4200 Normal INR 1.2 Performed By: #### L300.3900, L300.4310 #### [facility] [address] [place], [place], [address] PARTIAL THROMBOPLAST Collected: 09/14/2018 Status: F Source: KIP TIME 4:00 PM [facility] TYPE CODE TESTS RESULT OUT OF RANGE REFERENCE UNITS LAB L300.4310 24.1-36.2 Seconds Normal PTT 30.9 Performed By: #### L300.3900, L300.4310 #### [facility] [address] [place], [place], [address] CHEST INSP/EXP 2 VIEW Observed: 09/14/2018 Status: F Source: KIP 3:08 PM [facility] REPOSITORY [facility] Imaging Services [address] [place] [address] Chest Insp/Exp 2 View MR#: [id number] Acct: [id number] Name: NINFA SAM Rep #: [id number] : 1945 F 73 From: Chris Alfaro MD PCP: Mikey Diamond MD Status: ADM IN Study: Chest Insp/Exp 2 View Date of Exam: 09/14/18 Exam# [id number] Ordering Dr: Chris Alfaro MD STUDY: X-RAY [...] Chris Alfaro MD at 8:33 EST Tel [phone], Service support , CC: Mikey Diamond MD; Chris Alfaro MD Jail Keeper: Signed CYTOLOGY, BODY FLUID / Collected: 09/14/2018 Status: F Source: KIP CSF 3:00 PM [facility] RE[facility] Order Comment: Comments: Please include flow cytometry - Pleural fluid TYPE CODE TESTS RESULT OUT OF RANGE REFERENCE UNITS LAB L350.1000 SEE Normal PATHOLOGY CYTOLOGY,BF REPORT /CSF Result Comment: Specimen submitted to Anatomical Pathology Department for testing. Performed By: #### L350.1000 #### [facility] [address] [place], [address] VENOUS DUPLEX LOWER Observed: 09/14/2018 Status: F Source: [place] EXTREMITY 12:55 PM [facility] RE[facility]ITORY [facility] Cardiovascular Services [address] [place] [address] Venous Duplex US - Ye Extrem 09/14/18 0824 MR#: [id number] Acct: [id number] Name: NINFA SAM Rep #: [id number] : 1945 73 From: Joe Miranda MD [...] Dictated: 09/14/18 0824 Date Transcribed: 09/14/18 1255 Jail Keeper: Signed INTERNAL MEDICINE Observed: 09/14/2018 Status: F Source: KIP OFFICE VISIT 8:15 AM [facility] [address] [place] [address] [place] [address] OFFICE VISIT Date of Service: 09/04/18 MR#: [id number] Acct: [id number] Name: NINFA SAM Gerardo Rep #: [id number] : 1945 Provider: Mikey Diamond MD Age/Sex: 73/F Location: [facility] [place] [place] Status: Signed Intake Vital Signs09/04/18 Body Mass [...] acute distress Orientation: alert, awake, oriented x3 [facility] Head: atraumatic, normocephalic, normal to inspection Ears: [...] general surgery. This note was generated with [employer] dictation software. It may contain incorrect words, [...] signed by Mikey Diamond MD> Date Mikey Renee Signature: Date (if applicable) CC: BASIC METABOLIC Collected: 09/14/2018 Status: F Source: KIP PROFILE (BMP) 4:05 AM [facility] TYPE CODE TESTS RESULT OUT OF [...] GAP 8 Performed By: #### L500.2500 #### [facility] [address] [place], [address] CBC W/DIFF, AUTOMATED Collected: 09/14/2018 Status: F Source: KIP 4:05 AM [facility] TYPE CODE TESTS RESULT OUT OF [...] Lymph 0.70 Performed By: #### L100.0100 #### [facility] [address] [facility]. [place], [place], [id number] PROTHROMBIN TIME W/INR Collected: 09/14/2018 Status: F Source: [place] 4:05 AM [facility] REPOSITORY TYPE CODE TESTS RESULT OUT OF RANGE REFERENCE UNITS LAB L300.4150 11.7-14.9 SECONDS High PROTIME 15.5 LAB L300.4200 Normal INR 1.2 Performed By: #### L300.3900 #### [facility] [address] [place], [address] PARTIAL THROMBOPLAST Collected: 09/14/2018 Status: F Source: [place] TIME 2:20 AM [facility] REPOSITORY TYPE CODE TESTS RESULT OUT OF REFERENCE UNITS RANGE LAB L300.4310 24.1-36.2 Seconds High PTT 61.2 Performed By: #### L300.4310 #### [facility] [address] [place], [address] THORACENTESIS W US Observed: 09/14/2018 Status: F Source: KIP 12:01 AM [facility] REPOSITORY [facility] Imaging Services [address] [place] [address] Thoracentesis W US MR#: [id number] Acct: [id number] Name: NINFA SAM Rep #: [id number] : 1945 F 73 From: Chris Alfaro MD PCP: Mikey Diamond MD Status: ADM IN Study: Thoracentesis W US Date of Exam: 09/14/18 Exam# [id number] Ordering Dr: Faye Dunbar MD PROCEDURE: ULTRASOUND [...] local anesthesia. Under ultrasound guidance, a 6 German thoracentesis needle/catheter system was advanced into the [...] Chris Alfaro MD at 15:36 EST Tel [phone], Service support , CC: Mikey Diamond MD; Faye Dunbar MD Jail Keeper: Signed FLUID/WASHING Observed: 09/14/2018 Status: F Source: KIP 12:00 AM [facility] REPOSITORY Patient: NINFA SAM : 1945 (73/F) Acct Num: [id number] Phys: Kamryn Prince Unit Num: [id number] Loc: U [id number] Specimen: [id number] Received: 09/15/18 - 1310 Spec Type: Fluid TISSUES 1 TISSUES: THORACIC FLUID CYTOLOGY GROSS Received is 60 ml of cloudy yellow fluid labeled with the patient's name and and designated per the requisition as thoracentesis. Submitted for cytology preparation including cell block. / 09/15/18 TC:5 CPT: 42347, 20022 CYTOLOGY STUDY Slides are reviewed. DIAGNOSIS CYTOLOGY Thoracentesis fluid for cytology (cytospins): Negative for malignant cells. AM:yolanda 09/16/18 HEADER OPERATION: Ultrasound-guided left thoracentesis PRE-OP DIAGNOSIS: Acute pulmonary emboli TISSUE SUBMITTED: Thoracentesis fluid for cytology Signed Aldair Garcia 09/16/18 <signature on file> Performed By: #### PFLU #### [facility] [address] [place], [address] TROPONIN-I Collected: 09/13/2018 Status: F Source: [place] 10:10 PM [facility] REPOSITORY Order Comment: 'TROP' Serial specimen #1, #2 or #3: 3 'TROP' Serial specimen #1, #2, #3, or #4: 3 TYPE CODE TESTS RESULT OUT OF RANGE REFERENCE UNITS LAB L501.4010 <0.045 ng/mL High 0.284 TROPONIN-I Result Comment: TROPONIN-I EXPECTED VALUES <0.045 Negative 0.045 - 0.590 Consistent with Cardiac Damage > OR = 0.600 Critical Value Not every elevated troponin is indicative of IA. These values should be used with clinical judgement in examining the patient's clinical picture for diagnosis. To establish a diagnosis of IA versus myocardial injury, there must be a demonstrated rise and/or fall in the troponin values, in addition to ischemic symptoms, EKG changes, new regional wall motion abnormality, and/or angiographical evidence. PLEASE NOTE: REFERENCE RANGES EDITED 18 Performed By: #### L501.4010 #### [facility] [address] [facility]. [place], [place], [address] TROPONIN-I Collected: 09/13/2018 Status: F Source: KIP 7:45 PM [facility] REPOSITORY Order Comment: 'TROP' Serial specimen #1, #2 or #3: 2 'TROP' Serial specimen #1, #2, #3, or #4: 2 TYPE CODE TESTS RESULT OUT OF RANGE REFERENCE UNITS LAB L501.4010 <0.045 ng/mL High 0.263 TROPONIN-I Result Comment: TROPONIN-I EXPECTED VALUES <0.045 Negative 0.045 - 0.590 Consistent with Cardiac Damage > OR = 0.600 Critical Value Not every elevated troponin is indicative of IA. These values should be used with clinical judgement in examining the patient's clinical picture for diagnosis. To establish a diagnosis of IA versus myocardial injury, there must be a demonstrated rise and/or fall in the troponin values, in addition to ischemic symptoms, EKG changes, new regional wall motion abnormality, and/or angiographical evidence. PLEASE NOTE: REFERENCE RANGES EDITED 18 Performed By: #### L501.4010 #### [facility] [address] [facility] [place], [address] PARTIAL THROMBOPLAST Collected: 09/13/2018 Status: F Source: KIP TIME 7:45 PM [facility] REPOSITORY TYPE CODE TESTS RESULT OUT OF REFERENCE UNITS RANGE LAB L300.4310 24.1-36.2 Seconds High PTT 89.3 Performed By: #### L300.4310 #### [facility] [address] [place], [address] TROPONIN-I Collected: 09/13/2018 Status: F Source: KIP 4:20 PM [facility] REPOSITORY Order Comment: 'TROP' Serial specimen #1, #2 or #3: 1 TYPE CODE TESTS RESULT OUT OF RANGE REFERENCE UNITS LAB L501.4010 <0.045 ng/mL High 0.291 TROPONIN-I Result Comment: TROPONIN-I EXPECTED VALUES <0.045 Negative 0.045 - 0.590 Consistent with Cardiac Damage > OR = 0.600 Critical Value Not every elevated troponin is indicative of IA. These values should be used with clinical judgement in examining the patient's clinical picture for diagnosis. To establish a diagnosis of IA versus myocardial injury, there must be a demonstrated rise and/or fall in the troponin values, in addition to ischemic symptoms, EKG changes, new regional wall motion abnormality, and/or angiographical evidence. PLEASE NOTE: REFERENCE RANGES EDITED 18 Performed By: #### L501.4010 #### [facility] [address] [place] [place], [address] HISTORY AND PHYSICAL Observed: 09/13/2018 Status: F Source: KIP EXAM 2:35 PM [facility] REPOSITORY [facility] Medical [facility] [place] [address] History and Physical 09/13/18 1407 MR#: [id number] Acct: [id number] Name: NINFA SAM Rep #: [id number] : 1945 73 From: Kamryn Prince MD [...] by Agnes Denis) History of thoracentesis Z98.890 [facility] 09/01/18 History of lumpectomy Z98.890 breast lump, 1990s, benign Surgical History: no surgical history Psychiatric History: No pertinent psych hx 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 It may contain incorrect words, spelling, and punctuation that were not noted in checking the note before signing. Code Visit Inpatient E AND M: 31946 Init Hosp L3 09/13/18 1435 <Electronically signed by Kamryn Prince MD> Date Kamryn Prince MD Cosigner Signature: Date (if applicable) CC: Mikey Diamond MD; Kamryn Prince Signed EMERGENCY DEPARTMENT Observed: 09/13/2018 Status: F Source: [place] SUMMARY 1:52 PM [facility] REPOSITORY [facility] Medical Records Department [address] [place] [address] Emergency Department Summary 09/13/18 1347 MR#: [id number] Acct: [id number] Name: NINFA SAM Rep #: [id number] : 1945 73 From: Christian Lopez MD [...] rate of 123 with decreased anterior force. VA interval is normal. QRS duration is slightly prolonged. QT interval is normal. Schlater is normal. There is no acute ischemic [...] of hypothyroidism This note was generated with [employer]ista [employer] software. It may contain incorrect words, spelling, [...] your Primary Care Provider. Call [facility] ([phone]) or report to the closest Emergency Room. Call 911 if necessary. 09/13/18 1352 <Electronically signed by Christian Lopez MD> Date Christian Lopez MD Cosigner Signature (If Indicated): Date CC: Mikey Diamond MD VENOUS BLOOD GAS Collected: 09/13/2018 Status: F Source: KIP 12:51 PM [facility] REPOSITORY TYPE CODE TESTS RESULT OUT OF RANGE REFERENCE UNITS LAB L9000.9990 Normal BLD GAS TYPE JOSHUA LAB L9001.1000 L Normal SITE Brachial LAB L9001.1050 O2 Normal Delivery Dev Nasal Can LAB L9001.1055 /min Normal LPM 6.0 LAB L9001.1104 ED Normal Results To LAB L9001.1105 Normal Time Given 1250 LAB [...] CT ISTAT Performed By: #### L9000.0810 #### [facility] Point of Care [address] [place] [address] CTA CHEST W/WO Observed: 09/13/2018 Status: F Source: KIP CONTRAST 12:47 PM [facility] REPOSITORY [facility] Imaging Services [address] [place] [address] CTA Chest W/WO Contrast MR#: [id number] Acct: [id number] Name: NINFA SAM Rep #: [id number] : 1945 F 73 From: Selene Caro MD PCP: Mikey Diamond MD Status: ADM IN Study: CTA Chest W/WO Contrast Date of Exam: 09/13/18 Exam# [id number] Ordering Dr: Christian Lopez MD ADDENDUM by Selene Caro M.D. on 09/13/18 at 1432 ADDENDUM Additionally there are sizable partially visualized axillary lymphadenopathy. Electronically Signed: Selene Caro MD at 14:32 EST Tel , Service support , N.B. : The above information has been verbally conveyed by Selene Caro MD to Christian Lopez [phone], VASU, on 09/13/2018 14:31:10 (ET). 09/13/18 1432 [...] by Selene Caro MD to Christian Lopez [phone], VASU, on 09/13/2018 14:31:10 (ET). Electronically Signed: Selene Caro MD at 14:20 EST Tel , Service support , CC: Mikey Diamond MD; Christian Lopez MD Jail Keeper: Signed BASIC METABOLIC Collected: 09/13/2018 Status: F Source: [place] PROFILE (BMP) 12:16 PM [facility] REPOSITORY TYPE CODE TESTS RESULT OUT OF [...] GAP 10 Performed By: #### L500.2500 #### [facility] [address] [place], [place], [address] CBC-COMPLETE BLOOD CNT Collected: 09/13/2018 Status: F Source: KIP NO DIFF 12:16 PM [facility] REPOSITORY TYPE CODE TESTS RESULT OUT OF [...] MPV 9.8 Performed By: #### L100.0500 #### [facility] [address] [place], [place], [address] PROTHROMBIN TIME W/INR Collected: 09/13/2018 Status: F Source: KIP 12:16 PM [facility] REPOSITORY TYPE CODE TESTS RESULT OUT OF RANGE REFERENCE UNITS LAB L300.4150 11.7-14.9 SECONDS Normal PROTIME 13.8 LAB L300.4200 Normal INR 1.1 Performed By: #### L300.3900, L300.4310 #### [facility] [address] [place], [place], [address] PARTIAL THROMBOPLAST Collected: 09/13/2018 Status: F Source: [place] TIME 12:16 PM [facility] REPOSITORY TYPE CODE TESTS RESULT OUT OF RANGE REFERENCE UNITS LAB L300.4310 24.1-36.2 Seconds Normal PTT 29.8 Performed By: #### L300.3900, L300.4310 #### [facility] [address] [place], [place], [address] CHEST 1 VIEW Observed: 09/13/2018 Status: F Source: KIP (PORTABLE) 12:07 PM [facility] REPOSITORY [facility] Imaging Services [address] [place] [address] Chest 1 View (Portable) MR#: [id number] Acct: [id number] Name: NINFA SAM Rep #: [id number] : 1945 F 73 From: Selene Caro MD PCP: Mikey Diamond MD Status: REG ER Study: Chest 1 View (Portable) Date of Exam: 09/13/18 Exam# [id number] Ordering Dr: Christian Lopez MD STUDY: X-RAY [...] CC: Mikey Diamond MD; Christian Lopez MD Jail Keeper: Signed SURGERY VISIT REPORT Observed: 09/11/2018 Status: F Source: KIP 2:54 PM [facility] REPOSITORY [facility] [address] [place] [address] OFFICE VISIT Date of Service: 09/11/18 MR#: [id number] Acct: [id number] Name: NINFA SAM Rep #: [id number] : 1945 Provider: Bi Garcia MD Age/Sex: 73/F Location: [facility] Status: Signed Intake Vital Signs09/11/18 Body Mass Index (BMI) 21.1 09/11/18 Height 5 ft 3 in Intake Visit Reasons: Lymphadenopathy CT 09/10 Chief Complaint: f/u hospital, [facility] Vendor: Astaro Is patient in pain?: No Allergies No [...] tolerated the procedure well. Biopsy Lymphnode Biopsy: 72010 Lymphnode w Needle Procedure Time Out Time [...] have been resolved. Bi Garcia MD Pager: [facility] [address] [place] [address], [address] [place] [address] Office: Orders Orders: Coding Level of Care Code No Charge Diagnoses Generalized lymphadenopathy R59.1 Additional Codes Biopsy - Lymphnode Biopsy: 30602 Lymphnode w Needle (11268) 09/11/18 1454 <Electronically signed by Bi Garcia MD> Date Bi Garcia MD Cosigner Signature: Date (if applicable) CC: Mikey Diamond MD LYMPH NODE BIOPSY Observed: 09/11/2018 Status: F Source: [place] 2:00 PM [facility] REPOSITORY Patient: NINFA SAM : 1945 (73/F) Acct Num: [id number] Phys: Juani Berger MD Unit Num: [id number] Loc: OMD Specimen: [id number] Received: 09/11/18 - 1430 Spec Type: LYMPH NODE TISSUES 1 TISSUES: LYMPH NODE BIOPSY COMMENT Immunohistochemistry ([id number]) supports the above diagnosis. Excisional biopsy is [...] measure 1 x 1 x <0.1 cm. Dock Operations Supervisor portions are submitted for flow cytometric analysis. The remainder of the tissue is submitted in its entirety in one cassette. / AM:yolanda 09/11/18 TC:5 CPT: 24487 HEADER OPERATION: Right groin needle core biopsy [...] on file> Performed By: #### PLYMN #### [facility] [address] [place], [address] MISCELLANEOUS LAB Collected: 09/11/2018 Status: F Source: KIP PROCEDURE 2:00 PM [facility] REPOSITORY Order Comment: Comments: [id number] 0378 Right groin lymphadenopathy Test(s) Ordered: Flow [id number] TYPE CODE TESTS RESULT OUT OF RANGE REFERENCE UNITS LAB L801.1541 Normal [facility] LAB FLOW SEE PATH TEST Performed By: #### L801.1541 #### [facility] [address] [place], [address] ONCOLOGY HISTORY AND Observed: 09/11/2018 Status: F Source: [place] PHYSICAL 1:16 PM [facility] REPOSITORY [facility] Medical Records Department [address] [place] [address] History and Physical 09/11/18 1151 MR#: [id number] Acct: [id number] Name: NINFA SAM Rep #: [id number] : 1945 73 From: Juani Berger MD [...] which may represent metastatic lesion. Power of Manager Secondary: No Living Will: No Health History: Past [...] drinking: Has the patient needed an eye regulatory process manager in the mornings: Comments: Review of [...] 09/11/2018 Status: F Source: KIP 12:00 AM [facility] REPOSITORY Patient: NINFA SAM : 1945 (73/F) Acct Num: [id number] Phys: Juani Berger MD Unit Num: [id number] Loc: OMD Specimen: [id number] Received: 09/14/18 - 5083 Spec Type: IMMUNO TISSUES 1 TISSUES: Inguinal lymph node, NOS SPECIMEN INFORMATION: Tissue Source: Lymph node right groin, needle core biopsy Clinical Info: Lymphadenopathy Specimen Number: [id number] CPT code: 85174, 06646 x4 METHODOLOGY: Deparaffinized sections of prefer/formalin-fixed tissue [...] developed and their performance characteristics determined by [facility]. They may not have been cleared or approved by the U.S. Food and Drug Administration. The FDA has determined that such clearance or approval is not necessary. INTERPRETATION: Lymph node right groin, needle core biopsy: Consistent with fragments of fatty lymph node tissue, polytypic in nature. SJ:yolanda 09/15/18 PHYSICIAN AND INSTITUTION [place] [address] Signed Froilan Moran 09/17/18 <signature on file> Performed By: #### PIMM #### [facility] [address] [place] [address]. [place], [address] ABDOMEN/PELVIS WITH Observed: 09/10/2018 Status: F Source: [place] CONTRAST 2:50 PM [facility] REPOSITORY [facility] Imaging Services [address] [place] [address] Abdomen/Pelvis WITH Contrast MR#: [id number] Acct: [id number] Name: NINFA SAM Rep #: [id number] : 1945 F 73 From: Luke Tong MD PCP: Mikey Diamond MD Status: REG CLI Study: Abdomen/Pelvis WITH Contrast Date of Exam: 09/10/18 Exam# [id number] Ordering Dr: Mikey Diamond MD STUDY: CT [...] Service support , CC: Mikey Diamond MD Jail Keeper: Signed PULMONARY VISIT REPORT Observed: 09/04/2018 Status: F Source: [place] 7:34 PM [facility] REPOSITORY [facility] [address] [place] [address] OFFICE VISIT Date of Service: 09/04/18 MR#: [id number] Acct: [id number] Name: NINFA SAM Rep #: [id number] : 1945 Provider: Carina Ross Age/Sex: 73/F Location: [facility] [place] Status: Signed Assessment AND Plan 1. Axillary [...] consulted she would like to stay at [facility] and be treated by the [facility]. Orders Orders: 2. Shortness of breath R06.02 [...] Orders: Plan Detail Follow Up 1 Month ([facility]) [facility] FU: Chief Complaint: None. [facility] Comments Details: This is a 73 year old very pleasant F, currently under the care of Dr. Diamond, here to follow up after a recent hospitalization at [facility], from August 31 - September 02, 2018 [...] 119 lb Intake Visit Reasons: Hospital FU [facility] Vendor: TUSHAR Accompanied by: Daughter Allergies No [...] SCREEN W/REFLEX Collected: 09/04/2018 Status: F Source: [facility] 3:28 PM [facility] REPOSITORY TYPE CODE TESTS RESULT OUT OF RANGE REFERENCE UNITS LAB L7000.5400 0.00-0.90 ISR Normal LYME SCN <0.91 AB Result Comment: Negative <0.91 Equivocal 0.91 - 1.09 Positive >1.09 Performed at: [address] [id number] Poultry Farm Manager: Earnest Milligan PhD, Phone: [phone] LAB L7000.5500 Normal LYME SCN REF INTERP LAB Performed By: #### L7000.5300 #### [facility] (refer to report for specific site) refer to report for address and phone number LYME AB/TOTAL IMMUNO Collected: 09/04/2018 Status: F Source: [place] 3:28 PM [facility] REPOSITORY TYPE CODE TESTS RESULT OUT OF RANGE REFERENCE UNITS LAB L3300.4700 0.00-0.90 ISR Normal LYME AB < 0.91 38625 Result Comment: Negative <0.91 Equivocal 0.91 - 1.09 Positive >1.09 Performed at: [address] [id number] Poultry Farm Manager: Omar Canales MD, Phone: [phone] Performed at: [address] [id number] Poultry Farm Manager: Earnest Mliligan PhD, Phone: [phone] Performed By: #### L3300.4700, L7000.5800 #### [facility] (refer to report for specific site) refer to report for address and phone number LYME ANTIBODIES,W BLOT Collected: 09/04/2018 Status: F Source: KIP 3:28 PM [facility] REPOSITORY TYPE CODE TESTS RESULT OUT OF [...] are those recommended by CDC/ASTPHLD. p23=Osp C, l18=rxfvxmldc Note: Sera from individuals with the following may cross react in the Lyme Western Blot assays: other spirochetal diseases (periodontal disease, leptospirosis, relapsing fever, yaws, and pinta); connective autoimmune (Rheumatoid Arthritis and Systemic Lupus Erythematosus and also individuals with Antinuclear Antibody); other infections (Melvern Spotted Fever; Noman-Bush Virus, and Cytomegalovirus). Performed By: #### L3300.4700, L7000.5800 #### [facility] (refer to report for specific site) refer to report for address and phone number 12 LEAD ELECTROCARDIOGRAM Observed: 09/04/2018 Status: F Source: [place] 9:28 AM [facility] REPOSITORY [facility] Cardiovascular Services [address] [place] [address] 12 Lead EKG 08/31/18 1512 MR#: [id number] Acct: [id number] Name: NINFA SAM Rep #: [id number] : 1945 73 From: Je Kan MD [...] Abnormal ECG Confirmed by LORETA ALEX, JE ([id number]), fashion editor KOKO DERAS ([id number]) on 09/02/2018 4:26:49 PM Referred By: JOSEF Confirmed By:JE KAN MD 09/02/18 1626 Date Je Kan MD CC: No Primary Care Physician; Jocelyn Marquez MD; Faye Dunbar MD Signed DISCHARGE SUMMARY Observed: 09/02/2018 Status: F Source: [place] 4:19 PM [facility] REPOSITORY [facility] Medical Records Department [address] [place] [address] Discharge Summary 09/02/18 1030 MR#: [id number] Acct: [id number] Name: NINFA SAM Rep #: [id number] : 1945 73 From: Tri Chester AIRPLANE CAPTAIN-C PCP: Care Physician, No Primary Status: DIS IN Y Location: MS3 UI484-4 <Tri [place] - Last Filed: 09/02/18 11:45> [...] Chris Alfaro MD at 15:00 EST Tel [phone], Service support , Thoracentesis Ultrasound 09/01/18 18:45 IMPRESSION: Ultrasound-guided left thoracentesis. Electronically Signed: Chris Alfaro MD at 14:26 EST Tel [phone], Service support , Dr. Norman- Pulmonary Operations: [...] above. Agree with rest of Tri Chester AIRPLANE CAPTAIN-C's note. - Physical Exam Vital Signs Temp [...] Hrs Code Visit Inpatient E AND M: 81018 Disch Hosp 09/02/18 1146 <Electronically signed by Tri HERNANDEZC> Date Tri Chester AIRPLANE CAPTAIN-C 09/02/18 1619<Electronically signed by Faye Dunbar MD> Cosigner Signature (if applicable): Date Faye Dunbar MD CC: AIRPLANE CAPTAIN-C Tri [place]; No Primary Care Physician; Faye Dunbar MD Signed DISCHARGE INSTRUCTION Observed: 09/02/2018 Status: F Source: [place] 10:[address] [facility] Medical Records Department [address] [place] [address] Instructions for Home/Discharge Instructions 09/02/18 1021 MR#: [id number] Acct: [id number] Name: NINFA SAM Rep #: [id number] : 1945 73 From: Tri MCPHERSON PCP: [...] F Source: KIP PROFILE (BMP) 5:48 AM [facility] REPOSITORY TYPE CODE TESTS RESULT OUT OF [...] GAP 7 Performed By: #### L500.2500 #### [facility] [address] [place], [address] CONSULTATION Observed: 09/02/2018 Status: F Source: [place] 5:47 AM [facility] REPOSITORY [facility] Medical Records Department [address] [place] [address] Consultation 09/01/18 1119 MR#: [id number] Acct: [id number] Name: NINFA SAM Rep #: [id number] : 1945 73 From: Junaid Norman MD PCP: Care Physician, No Primary Status: ADM IN Y Location: [facility] [id number] Problem List (1) Weight loss, non-intentional Status: Chronic (2) Pleural effusion, left Status: Acute Reason for Consult Date of Consultation: 09/01/18 Reason for Consultation: Pleural effusion History of Present Illness: The patient is a 73 year old F, with no reported past medical history, who presented to [facility] on 08/31/2018 secondary to shortness of breath [...] history, PFT or being seen by a right of way man. 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 Code Visit Inpatient E AND M: 58763 Init Hosp L2 09/02/18 0547 <Electronically signed by Junaid Norman MD> Date Junaid Norman MD Cosigner Signature (if applicable): Date CC: No Primary Care Physician; Junaid Norman MD Signed ECHOCARDIOGRAM COMPLETE Observed: 09/01/2018 Status: F Source: [place] 2:47 PM [facility] REPOSITORY [facility] Cardiovascular Services [address] [place] [address] Echo Complete 09/01/18 0823 MR#: [id number] Acct: [id number] Name: NINFA SAM Rep #: [id number] : 1945 73 From: Je Kan MD Attending Dr: Donn Gutierres DO Status: ADM IN Ordering Dr: Mat Prescott MD Date: 08/31/18 Location: [place] [facility] Sex: F C Admitted: 08/31/18 Reason For [...] Physician: Mat Prescott Performed By: Ariane Goodrich, RDCS, RVT 09/01/18 144 Date Je Kan MD CC: No Primary Care Physician; oDnn Gutierres DO; Mat Prescott MD Date Dictated: 09/01/18 0823 Date Transcribed: 09/01/181446 Jail Keeper: Signed CHEST INSP/EXP 2 VIEW Observed: 09/01/2018 Status: F Source: [place] 2:02 PM [facility] REPOSITORY [facility] Imaging Services [address] [place] [address] Chest Insp/Exp 2 View MR#: [id number] Acct: [id number] Name: NINFA SAM Rep #: [id number] : 1945 F 73 From: Chris Alfaro MD PCP: Care Physician, No Primary Status: ADM IN Study: Chest Insp/Exp 2 View Date of Exam: 09/01/18 Exam# [id number] Ordering Dr: Chris Alfaro MD STUDY: X-RAY [...] Chris Alfaro MD at 15:00 EST Tel [phone], Service support , CC: No Primary Care Physician; Chris Alfaro MD Jail Keeper: Signed BODY FLUID CELL Collected: 09/01/2018 Status: C Source: KIP COUNT+DIFF 1:30 PM [facility] RE[facility]ITORY Order Comment: The reference range and [...] Normal SPEC Performed By: #### L200.0200 #### [facility] [address] [facility] [place], [place], [id number] GLUCOSE, BODY FLUID Collected: 09/01/2018 Status: F Source: T[place] 1:30 PM [facility] RE[facility] TYPE CODE TESTS RESULT OUT OF RANGE REFERENCE UNITS LAB L503.0100 40-70 mg/dL High GLU,BF 125 Performed By: #### L503.0100, L503.0300, L504.0250 #### [facility] [address] [facility] [place], [address] PROTEIN, BODY FLUID Collected: 09/01/2018 Status: F Source: [place] 1:30 PM [facility] TYPE CODE TESTS RESULT OUT OF RANGE REFERENCE UNITS LAB L503.0300 Not Establ. g/dL Normal 3.6 PROTEIN,BF Performed By: #### L503.0100, L503.0300, L504.0250 #### [facility] [address] [place], [address] LDH,BODY FLUID Collected: 09/01/2018 Status: F Source: KIP 1:30 PM [facility] RE[facility]ORY TYPE CODE TESTS RESULT OUT OF RANGE REFERENCE UNITS LAB L504.0250 Not Establ. Units/l Normal LDH,BF 185 Performed By: #### L503.0100, L503.0300, L504.0250 #### [facility] [address] [place], [address] Observed: 09/01/2018 Status: F Source: KIP CULTURE, BODY FLUID 1:30 PM [facility] RE[facility] Gram Stain Centrifuged Specimen? Culture performed on centrifuged specimen Gram Stain 2+ Red Cell Stroma Rare Red Blood Cells No organisms seen Body Fluid Cult No growth aerobically. Cult, Anaerobic No growth in 5 days. Performed By: #### M100.1300 #### [facility] [address] [place], [address] CYTOLOGY, BODY FLUID / Collected: 09/01/2018 Status: F Source: KIP CSF 1:30 PM [facility] REPOSITORY TYPE CODE TESTS RESULT OUT OF RANGE REFERENCE UNITS LAB L350.1000 SEE Normal PATHOLOGY CYTOLOGY,BF REPORT /CSF Result Comment: Specimen submitted to Anatomical Pathology Department for testing. Performed By: #### L350.1000 #### [facility] [address] [place], [address] PH, BODY FLUID Collected: 09/01/2018 Status: F Source: KIP [address]10 1:30 PM [facility] RE[facility] TYPE CODE TESTS RESULT OUT OF RANGE REFERENCE UNITS LAB L3800.0400 Not Estab. Normal PHBF 8.0 57954 Result Comment: This test was developed and its performance characteristics determined by [facility]. It has not been cleared or approved by the Food and Drug Administration. Performed at: [facility] [id number] Poultry Farm Manager: Omar Canales MD, Phone: [phone] Performed By: #### L3800.0400 #### [facility] (refer to report for specific site) refer to report for address and phone number VENOUS DUPLEX LOWER Observed: 09/01/2018 Status: F Source: [place] EXTREMITY 12:13 PM [facility] RE[facility]ITORY [facility] Cardiovascular Services [address] [place] [address] Venous Duplex US - Ye Extrem 09/01/18824 MR#: [id number] Acct: [id number] Name: NINFA SAM Rep #: [id number] : 1945 73 From: Joe Miranda MD [...] Physician: NO PCP Performed By: Antoinette Dobson, MIRIAN, RVT 09/01/18 1213 Date Joe Miranda MD CC: [place]; No Primary Care Physician; Donn Gutierres DO Date Dictated: 09/01/18824 Date Transcribed: 09/01/181212 Jail Keeper: Signed PROTEIN, TOTAL Collected: 09/01/2018 Status: F Source: [place] 6:54 AM [facility] REPOS[facility]ORY TYPE CODE TESTS RESULT OUT OF RANGE REFERENCE UNITS LAB L501.1500 6.4-8.2 g/dL Low T PROT 6.0 LAB L501.1950 2.2-4.2 g/dL Normal GLOB 3.1 LAB L501.2000 0.9-2.4 RATIO Normal A/G 0.9 Performed By: #### L001.0705, L500.2500, L504.2610 #### [facility] [address] [place], [address] BASIC METABOLIC Collected: 09/01/2018 Status: F Source: [place] PROFILE (BMP) 6:54 AM [facility] RE[facility] TYPE CODE TESTS RESULT OUT OF [...] Performed By: #### L001.0705, L500.2500, L504.2610 #### [facility] [address] [facility] [place], [address] LDH Collected: 09/01/2018 Status: F Source: KIP 6:54 AM [facility]POS[facility]ORY TYPE CODE TESTS RESULT OUT OF RANGE REFERENCE UNITS LAB L504.2610 84-246 U/L High LDH 316 Performed By: #### L001.0705, L500.2500, L504.2610 #### [facility] [address] [place], [address] PROTHROMBIN TIME W/INR Collected: 09/01/2018 Status: F Source: [place] 6:54 AM [facility] REPOSITORY TYPE CODE TESTS RESULT OUT OF RANGE REFERENCE UNITS LAB L300.4150 11.7-14.9 SECONDS Normal PROTIME 14.4 LAB L300.4200 Normal INR 1.1 Performed By: #### L300.3900 #### [facility] [address] [place], [address] CBC-COMPLETE BLOOD CNT Collected: 09/01/2018 Status: F Source: KIP NO DIFF 6:54 AM [facility] TYPE CODE TESTS RESULT OUT OF [...] MPV 10.1 Performed By: #### L100.0500 #### [facility] [address] [place], [place], [address] PARTIAL THROMBOPLAST Collected: 09/01/2018 Status: F Source: [place] TIME 6:54 AM [facility] TYPE CODE TESTS RESULT OUT OF RANGE REFERENCE UNITS LAB L300.4310 24.1-36.2 Seconds Normal PTT 33.1 Performed By: #### L300.4310 #### [facility] [address] [place], [place], [address] PROTHROMBIN TIME W/INR Collected: 09/01/2018 Status: F Source: [place] 2:08 AM [facility] RE[facility] Order Comment: Comments: per protocol for starting Heparin infusion TYPE CODE TESTS RESULT OUT OF RANGE REFERENCE UNITS LAB L300.4150 11.7-14.9 SECONDS Normal PROTIME 14.3 LAB L300.4200 Normal INR 1.1 Performed By: #### L300.3900, L300.4310 #### [facility] [address] [place], [place], [address] PARTIAL THROMBOPLAST Collected: 09/01/2018 Status: F Source: [place] TIME 2:08 AM [facility] Order Comment: Comments: per protocol for starting Heparin infusion TYPE CODE TESTS RESULT OUT OF RANGE REFERENCE UNITS LAB L300.4310 24.1-36.2 Seconds Normal PTT 29.3 Performed By: #### L300.3900, L300.4310 #### [facility] [address] [place], [address] EMERGENCY DEPARTMENT Observed: 09/01/2018 Status: F Source: [place] SUMMARY 12:26 AM [facility] RE[facility]IT[facility] Medical Records Department [address] [facility] [place] [address] Emergency Department Summary 08/31/18 1509 MR#: [id number] Acct: [id number] Name: NINFA SAM Rep #: [id number] : 1945 73 From: Jocelyn Marquez MD [...] groin masses This note was generated with WiTricity dictation software. It may contain incorrect words, [...] problems, contact your Primary Care Provider. Call [facility] ([phone]) or report to the closest Emergency Room. Call 911 if necessary. 09/01/18 0026 <Electronically signed by Jocelyn Marquez MD> Date Jocelyn Marquez MD Cosigner Signature (If Indicated): Date CC: No Primary Care Physician FLUID/WASHING Observed: 09/01/2018 Status: F Source: KIP 12:00 AM [facility] Patient: NINFA SAM : 1945 (73/F) Acct Num: [id number] Phys: Faye Dunbar MD Unit Num: [id number] Loc: MS3 [id number] Specimen: [id number] Received: 09/01/18 - 1421 Spec Type: Fluid TISSUES 1 TISSUES: THORACIC FLUID CYTOLOGY GROSS Received is 115 ml of cloudy yellow fluid labeled with the patient's name and and designated per the requisition as thoracentesis. Submitted for cytology preparation including cell block. / 09/01/18 TC:5 CPT: 86554, 47979 CYTOLOGY STUDY Slides are reviewed. DIAGNOSIS CYTOLOGY Thoracentesis fluid for cytology (cytospin and cell block): Negative for malignant cells. AM:yolanda 09/02/18 HEADER OPERATION: Ultrasound-guided left thoracentesis PRE-OP DIAGNOSIS: Left-sided effusion TISSUE SUBMITTED: Thoracentesis fluid for cytology Signed Aldair Jose 09/02/18 <signature on file> Performed By: #### PFLU #### [facility] [address] [facility] [place], [place], [address] D-DIMER QUANTITATIVE Collected: 08/31/2018 Status: F Source: KIP (DVT/PE) 10:57 PM [facility] RE[facility] TYPE CODE TESTS RESULT OUT OF RANGE REFERENCE UNITS LAB L300.8000 0.27-0.49 FEU/ug/m High alert D-DIMER 1.86 QUANT Result Comment: D-Dimer ELEVATED (>0.49): Additional studies and clinical assessments are indicated to conclude diagnosis of: Deep Vein Thrombosis (DVT) or Pulmonary Embolism (PE) CRITICAL VALUE VERIFIED. CALLED TO CHRISTOPH TERRANCE 08/31/18 Jyotsna Bain. RESULTS READ BACK BY SAME . Performed By: #### L300.8000 #### [facility] [address] [facility] 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 Code Visit Inpatient E AND M: 36086 Init Hosp L3 08/31/18 1850 <Electronically signed by Tri Chester NP-C> Date Tri Chester AIRPLANE CAPTAIN-C 08/31/182141<Electronically signed by Mat Prescott MD> Cosigner Signature: Date (if applicable) Mat Prescott MD CC: AIRPLANE CAPTAIN-C Tri [place]; No Primary Care Physician; Mat Prescott MD Signed THORACENTESIS W US Observed: 08/31/2018 Status: F Source: KIP 6:53 PM [facility] RE[facility]IT[facility] Imaging Services [address] [place] [address] Thoracentesis W US MR#: [id number] Acct: [id number] Name: NINFA SAM Rep #: [id number] : 1945 F 73 From: Chris Alfaro MD PCP: Care Physician, No Primary Status: ADM IN Study: Thoracentesis W US Date of Exam: 09/01/18 Exam# [id number] Ordering Dr: Tri Chester PROCEDURE: ULTRASOUND GUIDED [...] local anesthesia. Under ultrasound guidance, a 5 German thoracentesis needle/catheter system was advanced into the [...] Chris Alfaro MD at 14:26 EST Tel [phone], Service support , CC: [place]; No Primary Care Physician Jail Keeper: Signed CBC W/DIFF, AUTOMATED Collected: 08/31/2018 Status: F Source: KIP 3:15 PM [facility] RE[facility]ORY TYPE CODE TESTS RESULT OUT OF [...] LYMPHOPENIA NOTED Performed By: #### L100.0100 #### [facility] [address] [place], [address] BASIC METABOLIC Collected: 08/31/2018 Status: F Source: KIP PROFILE (BMP) 3:15 PM [facility] RE[facility] TYPE CODE TESTS RESULT OUT OF [...] By: #### L500.2500, L500.3400, L501.4010, L501.9520 #### [facility] [address] [place], [place], [address] LIVER PROFILE Collected: 08/31/2018 Status: F Source: [place] 3:15 PM [facility] TYPE CODE TESTS RESULT OUT OF [...] By: #### L500.2500, L500.3400, L501.4010, L501.9520 #### [facility] [address] [place], [address] TROPONIN-I Collected: 08/31/2018 Status: F Source: KIP 3:15 PM [facility] REPOSITORY TYPE CODE TESTS RESULT OUT OF RANGE REFERENCE UNITS LAB L501.4010 <0.045 ng/mL Normal < 0.015 TROPONIN-I Result Comment: TROPONIN-I EXPECTED VALUES <0.045 Negative 0.045 - 0.590 Consistent with Cardiac Damage > OR = 0.600 Critical Value Not every elevated troponin is indicative of IA. These values should be used with clinical judgement in examining the patient's clinical picture for diagnosis. To establish a diagnosis of IA versus myocardial injury, there must be a demonstrated rise and/or fall in the troponin values, in addition to ischemic symptoms, EKG changes, new regional wall motion abnormality, and/or angiographical evidence. PLEASE NOTE: REFERENCE RANGES EDITED 18 Performed By: #### L500.2500, L500.3400, L501.4010, L501.9520 #### [facility] [address] [place], [address] THYROID STIM HORMONE Collected: 08/31/2018 Status: F Source: KIP (TSH) 3:15 PM [facility] REPOSITORY TYPE CODE TESTS RESULT OUT OF RANGE REFERENCE UNITS LAB L501.9520 0.358-3.74 uIU/mL Normal TSH 1.70 Performed By: #### L500.2500, L500.3400, L501.4010, L501.9520 #### [facility] [address] [place], [address] BNP,B-TYPE NATRIURETIC Collected: 08/31/2018 Status: F Source: KIP PEPTIDE 3:15 PM [facility] RE[facility]ITORY TYPE CODE TESTS RESULT OUT OF RANGE REFERENCE UNITS LAB L503.6620 0-100 pg/mL Normal B-TYPE 26.6 TONIE PEP Performed By: #### L503.6620 #### [facility] [address] [place], [address] CHEST PA AND LATERAL Observed: 08/31/2018 Status: F Source: KIP 3:05 PM [facility] REPOSITORY [facility] [place] [address] Chest PA and Lateral MR#: [id number] Acct: [id number] Name: NINFA SAM Rep #: [id number] : 1945 F 73 From: Martín Madrid MD PCP: Care Physician, No Primary Status: REG ER Study: Chest PA and Lateral Date of Exam: 08/31/18 Exam# [id number] Ordering Dr: Jocelyn Marquez MD STUDY: X-RAY [...] No Primary Care Physician; Jocelyn Marquez MD Jail Keeper: Signed ALLERGIES ALLERGIES DATE TYPE / CODE NAME / CODE REACTION SEVERITY SOURCE 10/28/2018 Drug No Known Unknown [facility] Allergy/4160 Allergies/F00 [facility] 10616(SNOMED 2101700(RXNOR Repository CT) M) ENCOUNTERS ENCOUNTERS ADMIT/DISCHARGE ACCOUNT ADMITTING ENCOUNTER LOCATION SOURCE NUMBER CLASS 10/28/2018 [id number] Ambulatory [place] 1 [facility] ing:OMD Repository 10/28/2018 [id number] Ambulatory BMSBuilding:B [place] 3 [facility] Repository 10/21/2018 [id number] Ambulatory BMSBuilding:B [place] 5 [facility] Repository 10/07/2018 [id number] Ambulatory BMSBuilding:B [place] 0 [facility] Repository 10/02/2018/ [id number] Ambulatory BMSBuilding:B [place] 8 2 [facility] Repository 09/30/2018 [id number] Ambulatory [place] 3 [facility] ing:POLAB3 Repository 09/30/2018 [id number] Ambulatory BMSBuilding:B [place] 2 [facility] Repository 09/25/2018/ [id number] Emergency [place] 8 [facility] ing:ED Repository 09/24/2018 [id number] Ambulatory BMSBuilding:B [place] 4 MS.[facility] Repository 09/19/2018/ [id number] EricJacob Chi Inpatient [place] K[place] 8 5 Encounter [facility] ing:TCURoom: Repository [id number]: 1 09/17/2018 [id number] Ambulatory BMSBuilding:W [place] 3 [facility] Repository 09/13/2018 [id number] [facility], Ambulatory BMSBuilding:B [place] 3 [place] MS.[facility] Repository 09/13/2018 [id number] [facility], Ambulatory BMSBuilding:B [place] 2 [place] MS.[facility] Repository 09/13/2018 [id number] [place], Ambulatory BMSBuilding:B [place] 5 [place] MS.CF.[facility] Repository 09/13/2018 [id number] [facility], Ambulatory BMSBuilding:B [place] 4 [place] [place] 09/13/2018 [id number] [place], Ambulatory BMSBuilding:B [place] 6 [place] MS.[facility] Repository 09/13/2018 [id number] [place], Ambulatory BMSBuilding:B [place] 0 [place] [facility] [place] 09/13/2018 [id number] [place], Ambulatory BMSBuilding:B [place] 9 [place] MS.[facility] Repository 09/13/2018 [id number] [place], Ambulatory BMSBuilding:B [place] 9 [place] [facility] [place] 09/13/2018 [id number] [place], Ambulatory BMSBuilding:B [place] 7 [place] MS.CF.[facility] Repository 09/13/2018 [id number] [place], Ambulatory BMSBuilding:B [place] 2 [place] MS.[facility] Repository 09/13/2018 [id number] [facility] BMSBuilding:B [place] 1 [place] MS.CF.[facility] Repository 09/13/2018 [id number] [place], Ambulatory BMSBuilding:B [place] 9 [place] [place] 09/13/2018 [id number] [place], Ambulatory BMSBuilding:B [place] 9 [place] MS.[facility] Repository 09/13/2018 [id number] [place], Ambulatory BMSBuilding:B [place] 6 [place] MS.CF.[facility] Repository 09/13/2018 [id number] [place], Ambulatory BMSBuilding:B [place] 0 [place] [place] 09/13/2018 [id number] [place], Ambulatory BMSBuilding:B [place] 9 [place] MS.CF.[facility] Repository 09/13/2018 [id number] [place], Ambulatory BMSBuilding:B [place] 6 [place] MS.[facility] Repository 09/13/2018 [id number] [place], Ambulatory BMSBuilding:B [place] 6 [place] [place] 09/13/2018/ [id number] Ambulatory BMSBuilding:B [place] 8 8 MS.CF.[facility] Repository 09/13/2018/ [id number] [place], Inpatient [place] 8 6 [place]em Encounter [facility] ing:PCURoom: Repository ITH303Laf: 1 09/11/2018/ [id number] Ambulatory BMSBuilding:B [place] 8 4 MS.[facility] Repository 09/11/2018 [id number] Ambulatory BMSBuilding:B [place] 7 MS.CF.[facility] Repository 09/10/2018 [id number] Ambulatory [place] 1 [facility] ing:CT Repository 09/04/2018 [id number] Ambulatory [place] 3 [facility] ing:PAVLAB Repository 09/04/2018/ [id number] Ambulatory BMSBuilding:B [place] 2 [facility] Repository 09/04/2018/ [id number] Ambulatory BMSBuilding:B [place] 8 1 [facility] Repository 08/31/2018/ [id number] [facility], Inpatient [place] 8 5 Mat Encounter [facility] ing:BX2Crgz: Repository TS392Vtj: 1 08/31/2018 [id number] [place], Ambulatory BMSBuilding:B [place] 8 Mat MS.[facility] Repository 08/31/2018/ [id number] Ambulatory BMSBuilding:W [place] 8 4 [facility] Repository 08/31/2018 [id number] [place], Ambulatory BMSBuilding:B Kip 7 Mat MS.[facility] Repository 08/31/2018 [id number] [place], Ambulatory BMSBuilding:B [place] 7 Mat [facility] [place] 08/31/2018 [id number] [place], Ambulatory BMSBuilding:B [place] 0 Mat MS.[facility] Repository 08/31/2018 [id number] [place], Ambulatory BMSBuilding:B [place] 3 Mat [facility] Repository 08/31/2018/ [id number] Ambulatory BMSBuilding:B [place] 8 0 MS.CF.[facility] Repository PAYERS PAYERS ENCOUNTER GUARANTOR PAYER SUBSCRIBER SOURCE 10/28/2018 TUNDE Hawthorne Primary NINFA Carrillo K[place] [id number] TR Insurance:MEDICARE LINTDOB: Community [address] A [facility] [id number] Number: Repository [id number]: 330 [id number] [phone] () Date:2018-09-11 10/28/2018 Secondary TUNDE Hawthorne LINTDOB: [place] Insurance:[facility] [id number]: [facility] [id number] Repository Date:9778-03-38PP [id number] [place] [address]NV: 10/28/2018 Tertiary NOT GIVENUNK [place] Insurance:SELF PAY [facility] Number: Effective Repository Date:2018-09-11 10/28/2018 TUNDE Hawthorne Primary NINFA Carrillo [place] [id number] TR Insurance:MEDICARE LINTDOB: Community [address] [facility] [id number] [place] Number: Repository [id number]: 330 [id number] [phone] () Date:2018-09-11 10/28/2018 Secondary TUNDE Hawthorne LINTDOB: [place] Insurance:[facility] [id number] [facility] HealthPolicy Number: Hospital [id number] Repository Date:1571-19-96UF [id number] [place] [address]ZT: 10/28/2018 Tertiary NOT GIVENUNK [place] Insurance:SELF PAY [facility] Number: Effective Repository Date:2018-10-28 10/21/2018 TUNDE Hawthorne Primary NINFA Carrillo [place] [id number] TR Insurance:MEDICARE LINTDOB: Community [address] [facility] [id number], [place] Number: Repository [id number]: 330 [id number] [phone] () Date:2018-09-11 10/21/2018 Secondary TUNDE A LINTDOB: [place] Insurance:[facility] [id number] Community SHAREPolicy Number: Hospital [id number] Repository Date:2982-91-27MV [id number] [place], [place] [address]PB: 10/21/2018 Tertiary NOT GIVENUNK [place] Insurance:SELF PAY Community [facility] Hospital Number: Effective Repository Date:2018-10-21 10/07/2018 TUNDE Hawthorne Primary NINFA Shin [id number] TR Insurance:MEDICARE LINTDOB: Community [address] BPolicy [id number] Number: Repository [id number]: (110) [id number] [phone] () Date:2018-09-11 10/07/2018 Secondary TUNDE Marine LINTDOB: [place] Insurance:[facility] [id number] [facility] SHAREPolicy Number: Hospital [id number] Repository Date:6062-32-21AE [id number] [place] [address]UR: 10/07/2018 Tertiary NOT GIVENUNK [place] Insurance:SELF PAY Community [employer] Hospital Number: Effective Repository Date:2018-10-07 10/02/2018 NINFA Shin [id number] TR Insurance:MEDICARE LINTDOB: Community [address] olicy [id number] Number: Repository [address]Tbe: 330 [id number] [phone] () Date:2018-09-24 10/02/2018 Secondary TUNDE [place] LINTDOB: [place] Insurance:[facility] [id number] [facility] SHAREPolicy Number: [facility] [id number] Repository Date:8785-95-61NG [id number] [place], [place] [address]GP: 10/02/2018 Tertiary NOT GIVENUNK [place] Insurance:SELF PAY Community [facility] Hospital Number: Effective Repository Date:2018-09-24 09/30/2018 TUNDE [place]th[place] Primary NINFA Shin [id number] TR Insurance:MEDICARE LINTDOB: Community [address] BPolicy [id number] Number: Repository [address]Rti: 330 [id number] [phone] () Date:2018-09-30 09/30/2018 Secondary NOT GIVENUNK [place] Insurance:SE[place] [facility] Number: Effective Repository Date:2018-09-30 09/30/2018 TUNDE [place] Primary NINFA Carrillo [place] [id number] TR Insurance:MEDICARE LINTDOB: Community [address] A [facility] [id number] Number: Repository [address]Zuy: 330 [id number] [phone] () Date:2018-09-11 09/30/2018 Secondary TUNDE [place] LINTDOB: [place] Insurance:[facility] [id number] Community SHAREPolicy Number: Hospital [id number] Repository Date:8874-47-20CO [id number] [place] [address] 21864OX: 09/30/2018 Tertiary NOT GIV[place]UNK [place] Insurance:SELF [place]Y [facility] Number: Effective Repository Date:2018-09-30 09/25/2018 TUNDE A Primary NINFA Carrillo [place] [id number] TR Insurance:MEDICARE LINTDOB: Community [address] PART A [facility] [id number] Number: Repository [address]Kbp: 330 [id number] [phone] () Date:2018-09-25 09/25/2018 Secondary TUNDE [place]orne LINTDOB: [place] Insurance:[facility] [id number] [facility] SHAREPolicy Number: Hospital [id number] Repository Date:5748-05-50AZ [id number] [place] [address] 13092GP: 09/25/2018 Tertiary [place]IV[place]UNK [place] Insurance:SELF [place] [facility] Number: Effective Repository Date:2018-09-25 09/24/2018 TUNDE [place] Primary NINFA Carrillo [place] [id number] TR Insurance:MEDICARE LINTDOB: Community [address] PART A [facility] [id number] Number: Repository [address]28[address]Hkr: (863) [id number] [phone] (HP) Date:2018-09-11 09/24/2018 Secondary TUNDE HIRSCHTDOB: [place] Insurance[place] [id number] Community SHAREPolicy Number: Hospital [id number] Repository Date:3926-89-17PD [id number] RAZIA MCMILLAN 98431VQ: 09/24/2018 Tertiary NOT GIVENUNK [place] Insurance:SE[place] [facility] Effective Repository Date:2018-09-24 09/19/2018 TUNDE A Primary NINFA Gerardo DamonKip [id number] TR Insurance:MEDICARE LINTDOB: Community [address] olic [id number] Number: Repository [address]Vno: [phone]) [id number] [phone] (HP) Date:2018-09-19 09/19/2018 Secondary TUNDE [place] LINTDOB: [place] Insurance[place] [id number] Community SHAREPolicy Number: Hospital [id number] Repository Date:5817-02-60CE [id number] RAZIA MCMILLAN 01891GU: 09/19/2018 Tertiary NOT GIVENUNK [place] Insurance:SELF [place]Y Community [facility] Number: Effective Repository Date:2018-09-19 09/17/2018 TUNDE A Primary NINFA Damonoster [id number] TR Insurance:MEDICARE LINTDOB: Community [address] olic [id number] Number: Repository [address]Yvr: (162) [id number] [phone] (HP) Date:2018-09-13 09/17/2018 Secondary TUNDE A LINTDOB: [place] Insurance:[facility] [id number] Community SHAREPolicy Number: Hospital [id number] Repository Date:9615-94-25PE [id number] RAZIA MCMILLAN 99889KQ: 09/17/2018 Tertiary NOT GIVENUNK [place] Insurance:SELF PAY Community [facility] Hospital Number: Effective Repository Date:2018-09-17 09/13/2018 TUNDE A Primary NINFA Shin [id number] TR Insurance:MEDICARE LINTDOB: Community [address] PART A olic [id number] Number: Repository 47606Zpl: 330 [id number] [phone] (HP) Date:2018-09-13 09/13/2018 Secondary TUNDE [place] LINTDOB: [place] Insurance:[facility] [id number] Number: Hospital [id number] Repository Date:0925-23-05HX [id number] [place] [address] 54328HN: 09/13/2018 Tertiary NOT GIVENUNK [place] Insurance:SELF PAY [facility] Number: Effective Repository Date:2018-09-13 09/13/2018 TUNDE A Primary NINFA Damonoster [id number] TR Insurance:MEDICARE LINTDOB: Community [address] PART A [facility] [id number] Number: Repository [address]Bgq: 330 [id number] [phone] (HP) Date:2018-09-13 09/13/2018 Secondary TUNDE [place]thorne JOYCELYNTDOB: [place] Insurance:[facility] [id number] Number: Hospital [id number] Repository Date:6344-16-51AS [id number] [place] [address] 38781FK: 09/13/2018 Tertiary [place]K [place] Insurance:SELF PAY [facility] Number: Effective Repository Date:2018-09-13 09/13/2018 TUNDE A Primary NINFA Damonoster [id number] TR Insurance:MEDICARE LINTDOB: Community [address] PART A [facility] [id number] Number: Repository [address]Git: 330 [id number] [phone] (HP) Date:2018-09-13 09/13/2018 Secondary TUNDE A JOYCELYNTDOB: [place] Insurance:[facility] [id number] Community SHAREPolicy Number: Hospital [id number] Repository Date:6928-65-58JN [id number] [place] Gallagher 39[address]VM: 09/13/2018 Tertiary NOT GIVENUNK [place] Insurance:SELF PAY Community [facility] Number: Effective Repository Date:2018-09-13 09/13/2018 TUNDE [place] Primary NINFA Shin [id number] TR Insurance:MEDICARE LINTDOB: Community [address] PART A [facility] [id number] Number: Repository 797[address]Bbq: 330 [id number] [phone] (HP) Date:2018-09-13 09/13/2018 Secondary TUNDE [place] LINTDOB: [place] Insurance[place] [id number] Community SHAREPolicy Number: Hospital [id number] Repository Date:7355-03-04AQ [id number] RAZIA MCMILLAN 95900MU: 09/13/2018 Tertiary NOT [place]UNK [place] Insurance:SELF PAY [facility] Number: Effective Repository Date:2018-09-13 09/13/2018 TUNDE A Primary NINFA Carrillo [place] [id number] TR Insurance:MEDICARE LINTDOB: Community [address] PART A [facility] [id number] Number: Repository [address]Hka: 330 [id number] [phone] (HP) Date:2018-09-13 09/13/2018 Secondary TUNDE [place] LINTDOB: [place] Insurance:[facility] [id number] Community SHAREPolicy Number: Hospital [id number] Repository Date:9326-49-96BU [id number] RAZIA MCMILLAN 57727FF: 09/13/2018 Tertiary NOT [place]K [place] Insurance:SE[place] Community [facility] Number: Effective Repository Date:2018-09-13 09/13/2018 TUNDE [place] Primary NINFA Shin [id number] TR Insurance:MEDICARE LINTDOB: Community [address] PART A [facility] [id number] Number: Repository 17[address]Ihn: (539) [id number] [phone] (HP) Date:2018-09-13 09/13/2018 Secondary TUNDE HIRSCHSharriDOB: [place] Insurance:[facility] [id number] Community SHAREPolicy Number: Hospital [id number] Repository Date:2507-80-78WK [id number] RAZIA MCMILLAN 85777XD: 09/13/2018 Tertiary NOT GIVENUNK [place] Insurance:SELF PAY Community [facility] Hospital Number: Effective Repository Date:2018-09-13 09/13/2018 TUNDE A Primary NINFA J [place] [id number] TR Insurance:MEDICARE LINTDOB: Community [address] PART A [facility] [id number] Number: Repository [address]Ioz: (117) [id number] [phone] (HP) Date:2018-09-13 09/13/2018 Secondary TUNDE [place]orne FLACODOB: [place] Insurance:[facility] [id number] Community SHAREPolicy Number: Hospital [id number] Repository Date:3031-64-65GD [id number] KATLYNRAZIA 50036MT: 09/13/2018 Tertiary [place]K [place] Insurance:SELF [place]Y Community [facility] Hospital Number: Effective Repository Date:2018-09-13 09/13/2018 TUNDE A Primary NINFA Damonoster [id number] TR Insurance:MEDICARE LINTDOB: Community [address] PART A [facility] [id number] Number: Repository 177[address]Fet: (920) [id number] [phone] (HP) Date:2018-09-13 09/13/2018 Secondary TUNDE [place] FLACODOB: [place] Insurance:[facility] [id number] Community SHAREPolic Number: Hospital [id number] Repository Date:6515-48-15GK [id number] [place] [address]KV: 09/13/2018 Tertiary NOT G[place]UNK [place] Insurance:SELF PAY Community [facility] Hospital Number: Effective Repository Date:2018-09-13 09/13/2018 TUNDE A Primary NINFA Shin [id number] TR Insurance:MEDICARE LINTDOB: Community [address] PART A [facility] [id number] Number: Repository 494[address]Ydo: 330 [id number] [phone] (HP) Date:2018-09-13 09/13/2018 Secondary TUNDE Marine CHERYLB: [place] Insurance:[facility] [id number] [facility] Number: [facility] [id number] Repository Date:9348-37-27VD [id number] [place] [address] 26521YX: 09/13/2018 Tertiary NOT GIVENUNK [place] Insurance:SELF PAY [facility] Number: Effective Repository Date:2018-09-13 09/13/2018 TUNDE A Primary NINFA Damonoster [id number] TR Insurance:MEDICARE LINTDOB: Community [address] PART A [facility] [id number] [place] Number: Repository [address]Sjx: 330 [id number] [phone] (HP) Date:2018-09-13 09/13/2018 Secondary TUNDE [place] CHERYLB: [place] Insurance:[facility] [id number] [facility] Number: [facility] [id number] Repository Date:6066-54-62OP [id number] [place] [address] 31443AC: 09/13/2018 Tertiary NOT GIVENUNK [place] Insurance:SELF PAY [facility] Number: Effective Repository Date:2018-09-13 09/13/2018 TUNDE A Primary NINFA J [place] [id number] TR Insurance:MEDICARE LINTDOB: Community [address] PART A [facility] [id number] Number: Repository [address]Vqo: 330 [id number] [phone] (HP) Date:2018-09-13 09/13/2018 Secondary TUNDE LUNAB: [place] Insurance:[facility] [id number] [facility] SHAREPolic Number: [facility] [id number] Repository Date:6873-00-00NX [id number] [place] [address]LR: 09/13/2018 Tertiary NOT GIVENUNK [place] Insurance:SELF PAY [facility] Number: Effective Repository Date:2018-09-13 09/13/2018 TUNDE A Primary NINFA Shin [id number] TR Insurance:MEDICARE LINTDOB: Community [address] PART A [facility] [id number] Number: Repository 420[address]Yal: 330 [id number] [phone] (HP) Date:2018-09-13 09/13/2018 Secondary TUNDE [place] LINTDOB: [place] Insurance:[facility] [id number] [facility] Number: Hospital [id number] Repository Date:1760-27-38RR [id number] [place] [address]YT: 09/13/2018 Tertiary NOT GIVENUNK [place] Insurance:SELF PAY [facility] Number: Effective Repository Date:2018-09-13 09/13/2018 TUNDE A Primary NINFA Shin [id number] TR Insurance:MEDICARE LINTDOB: Community [address] PART A [facility] [id number] Number: Repository [address]Dmj: 330 [id number] [phone] (HP) Date:2018-09-13 09/13/2018 Secondary TUNDE [place] LINTDOB: [place] Insurance:[facility] [id number] [facility] Number: Hospital [id number] Repository Date:7260-71-71BL [id number] [place] [address]OG: 09/13/2018 Tertiary NOT GIVENUNK [place] Insurance:SELF PAY [facility] Hospital Number: Effective Repository Date:2018-09-13 09/13/2018 TUNDE [place] Primary NINFA Shin [id number] TR Insurance:MEDICARE LINTDOB: Community [address] PART A [facility] [id number] Number: Repository 67[address]Cuc: 330 [id number] [phone] (HP) Date:2018-09-13 09/13/2018 Secondary TUNDE HIRSCHTDOB: [place] Insurance:[facility] [id number] Community SHAREPolicy Number: Hospital [id number] Repository Date:9669-95-94EP [id number] [place] [address]OT: 09/13/2018 Tertiary NOT GIVENUNK [place] Insurance:SELF PAY Community [facility] Hospital Number: Effective Repository Date:2018-09-13 09/13/2018 TUNDE A Primary NINFA J [place] [id number] TR Insurance:MEDICARE LINTDOB: Community [address] PART A [facility] [id number] [place] Number: Repository [address]Ybv: (175) [id number] [phone] (HP) Date:2018-09-13 09/13/2018 Secondary TUNDE [place]th[place] JOYCELYNTDOB: [place] Insurance:[facility] [id number] Community SHAREPolicy Number: Hospital [id number] Repository Date:6460-89-89LA [id number] [place] [address]RE: 09/13/2018 Tertiary NOT GIVENUNK [place] Insurance:SELF PAY Community [facility] Number: Effective Repository Date:2018-09-13 09/13/2018 TUNDE A Primary NINFA J [place] [id number] TR Insurance:MEDICARE LINTDOB: Community [address] PART A [facility] [id number] Number: Repository [address]Teh: (617) [id number] [phone] (HP) Date:2018-09-13 09/13/2018 Secondary TUNDE A JOYCELYNTDOB: [place] Insurance:[facility] [id number] Community SHAREPolicy Number: Hospital [id number] Repository Date:1613-47-61RY [id number] [place] [address]ZB: 09/13/2018 Tertiary NOT GIVENUNK [place] Insurance:SELF PAY Community [facility] Number: Effective Repository Date:2018-09-13 09/13/2018 TUNDE A Primary NINFA Damonoster [id number] TR Insurance:MEDICARE LINTDOB: Community [address] PART A [facility] [id number] Number: Repository [address]Vdh: 330 [id number] [phone] (HP) Date:2018-09-13 09/13/2018 Secondary TUNDE A LINTDOB: [place] Insurance:[facility] [id number] [facility] Number: [facility] [id number] Repository Date:8153-53-08CI [id number] [place] [address] 808[address]FQ: 09/13/2018 Tertiary NOT GIVENUNK [place] Insurance:SELF PAY [facility] Number: Effective Repository Date:2018-09-13 09/13/2018 TUNDE A Primary NINFA Damonoster [id number] TR Insurance:MEDICARE LINTDOB: Community [address] PART A [facility] [id number] Number: Repository 16[address]Hvk: 330 [id number] [phone] (HP) Date:2018-09-13 09/13/2018 Secondary TUNDE Marine LINTDOB: [place] Insurance:[facility] [id number] Number: [facility] [id number] Repository Date:9712-07-88JK [id number] [place], [place] [address]LJ: 09/13/2018 Tertiary NOT GIVENUNK [place] Insurance:SELF PAY [facility] Hospital Number: Effective Repository Date:2018-09-13 09/13/2018 TUNDE A Primary NINFA Carrillo [place] [id number] TR Insurance:MEDICARE LINTDOB: Community [address] PART A [facility] [id number] Number: Repository 17[address]Rvt: 330 [id number] [phone] (HP) Date:2018-09-13 09/13/2018 Secondary TUNDE A JOYCELYNTDOB: [place] Insurance:[facility] [id number] HealthPolicy Number: [facility] [id number] Repository Date:1206-66-26EV [id number] [place], [place] [address]RX: 09/13/2018 Tertiary NOT GIVENUNK [place] Insurance:SELF PAY Community [facility] Number: Effective Repository Date:2018-09-13 09/13/2018 TUNDE A Primary NINFA Shin [id number] TR Insurance:MEDICARE LINTDOB: Community [address] PART A [facility] [id number] [place] Number: Repository [address]Xbb: (430) [id number] [phone] () Date:2018-09-13 09/13/2018 Secondary TUNDE [place] LINTDOB: [place] Insurance:[facility] [id number] [facility] Number: [facility] [id number] Repository Date:9107-95-24PB [id number] [place], [place] [address]NF: 09/13/2018 Tertiary NOT GIVENUNK [place] Insurance:SELF PAY [facility] Hospital Number: Effective Repository Date:2018-09-13 09/11/2018 TUNDE A Primary NINFA Shin [id number] TR Insurance:MEDICARE LINTDOB: Community [address] PART A [facility] [id number] Number: Repository [address]Ezi: (980) [id number] [phone] () Date:2018-09-11 09/11/2018 Secondary TUNDE Haw[place] LINTDOB: [place] Insurance:[facility] [id number] [facility] Number: [facility] [id number] Repository Date:5976-61-27DF [id number] [place], [place] [address]XA: 09/11/2018 Tertiary NOT GIVENUNK [place] Insurance:SELF PAY [facility] Number: Effective Repository Date:2018-09-11 09/11/2018 TUNDE A Primary NINFA Shin [id number] TR Insurance:MEDICARE LINTDOB: Community [address] PART A [facility] [id number] Number: Repository [address]Agx: 330 [id number] [phone] (HP) Date:2018-09-11 09/11/2018 Secondary TUNDE Hawthorne FLACODOB: [place] Insurance:[facility] [id number] Community SHAREPolicy Number: Hospital [id number] Repository Date:9446-53-03PL [id number] [place], [place] [address]UU: 09/11/2018 Tertiary NOT GIVENUNK [place] Insurance:SELF PAY [facility] Effective Repository Date:2018-09-11 09/10/2018 TUNDE A Primary NINFA J [place] [id number] TR Insurance:MEDICARE LINTDOB: Community [address] PART A [facility] [id number] Number: Repository [id number]: 330 [id number] [phone] () Date:2018-09-04 09/10/2018 Secondary TUNDE [place] JOYCELYNTDOB: [place] Insurance[place] [id number] Community SHAREPolicy Number: Hospital [id number] Repository Date:2254-61-68ND [id number] [place], [place] [address]PX: 09/10/2018 Tertiary NOT GIVENUNK [place] Insurance:SELF PAY Community [facility] Number: Effective Repository Date:2018-09-04 09/04/2018 TUNDE A Primary NINFA J [place] [id number] TR Insurance:MEDICARE LINTDOB: Community 16BOX PART A [facility] [id number] Number: Repository 35[address]Dpt: 330 [id number] [phone] () Date:2018-09-04 09/04/2018 Secondary TUNDE A JOYCELYNTDOB: [place] Insurance[place] [id number] Community SHAREPolic Number: Hospital [id number] Repository Date:8779-67-56OH [id number] [place], [place] [address]IQ: 09/04/2018 Tertiary NOT GIVENUNK [place] Insurance:SELF PAY Community [facility] Number: Effective Repository Date:2018-09-04 09/04/2018 TUNDE A Primary NINFA Shin [id number] TR Insurance:MEDICARE LINTDOB: Community [address] [place] [address] PART A [facility] [id number] Hospital [address]98[address]Ops: (330) Number: Repository [phone] () [id number] Date:2018-09-02 09/04/2018 Secondary TUNDE A LINTDOB: [place] Insurance:[facility] [id number] [facility] SHAREPolicy Number: Hospital [id number] Repository Date:9710-10-53YM [id number] [place], [place] [address]MI: 09/04/2018 Tertiary NOT GIVENUNK [place] Insurance:SELF PAY [facility] Number: Effective Repository Date:2018-09-03 09/04/2018 TUNDE [place] Primary NINFA Damonoster [id number] TR Insurance:MEDICARE LINTDOB: [address] PART A [facility] [id number] Hospital [address]Jai: (330) Number: Repository [phone] () [id number] Date:2018-09-02 09/04/2018 Secondary TUNDE A LINTDOB: [place] Insurance:[facility] [id number] [facility] SHAREPoly Number: Hospital [id number] Repository Date:5799-79-33MT [id number] [place], [place] [address]UF: 09/04/2018 Tertiary NOT GIVENUNK [place] Insurance:SELF PAY [facility] Number: Effective Repository Date:2018-09-03 08/31/2018 TUNDE A Primary NINFA Shin [id number] TR Insurance:MEDICARE LINTDOB: [address] PART A [facility] [id number] Hospital [address]Vsh: (330) Number: Repository [phone] () [id number] Date:2018-08-31 08/31/2018 Secondary TUNDE A LINTDOB: [place] Insurance[place] [id number] [facility] SHAREPolicy Number: Hospital [id number] Repository Date:9076-40-80FA [id number] [place], [place] [address]IC: 08/31/2018 Tertiary NOT GIVENUNK [place] Insurance:SELF PAY [facility] Number: Effective Repository Date:2018-08-31 08/31/2018 TUNDE [place] Primary NINFA Shin [id number] TR Insurance:MEDICARE LINTDOB: Community [address] PART A [facility] [id number] Number: Repository [address]All: 330 [id number] [phone] () Date:2018-08-31 08/31/2018 Secondary TUNDE A LINTDOB: [place] Insurance[place] [id number] Community SHAREPolicy Number: [facility] [id number] Repository Date:8153-18-52RA [id number] [place], [place] [address]XZ: 08/31/2018 Tertiary NOT GIVENUNK [place] Insurance:SELF PAY [facility] Hospital Number: Effective Repository Date:2018-08-31 08/31/2018 TUNDE A Primary NINFA Shin [id number] TR Insurance:MEDICARE LINTDOB: Community [address] PART A [facility] [id number] Number: Repository [address]Dke: 330 [id number] [phone] () Date:2018-08-31 08/31/2018 Secondary TUNDE A LINTDOB: [place] Insurance:[facility] [id number] Community SHAREPolicy Number: [facility] [id number] Repository Date:[id number] [place], [place] [address]CV: 08/31/2018 Tertiary NOT GIVENUNK [place] Insurance:SELF PAY [facility]: Effective Repository Date:2018-08-31 08/31/2018 TUNDE A Primary NINFA Shin [id number] Insurance:MEDICARE LINTDOB: Community [address] PART A [facility] [id number] Number: Repository [id number]: [phone] [id number] [phone] () Date:2018-08-31 08/31/2018 Secondary TUNDE Hawthorne LINTDOB: [place] Insurance:[facility] [id number] Community SHAREPolicy Number: Hospital [id number] Repository Date:[id number] [id number] [place], [place] [address]DZ: 08/31/2018 Tertiary NOT GIVENUNK [place] Insurance:SELF PAY [facility] Number: Effective Repository Date:2018-08-31 08/31/2018 TUNDE Hawthorne Primary NINFA Shin [id number] TR Insurance:MEDICARE LINTDOB: [address] PART A [facility] [id number] Hospital [id number]: 330) Number: Repository [phone] () [id number] Date:2018-08-31 08/31/2018 Secondary TUNDE Hawthorne LINTDOB: [place] Insurance:[facility] [id number] Community SHAREPolicy Number: Hospital [id number] Repository Date:[id number] [place], [place] [address]FW: 08/31/2018 Tertiary NOT GIVENUNK [place] Insurance:SELF PAY [facility] Number: Effective Repository Date:2018-08-31 08/31/2018 TUNDE Hawthorne Primary NINFA Shin [id number] TR Insurance:MEDICARE LINTDOB: Community [address] [facility] [id number] Number: Repository [id number]: 330 [id number] [phone] () Date:2018-08-31 08/31/2018 Secondary TUNDE Hawthorne LINTDOB: [place] Insurance:[facility] [id number] Community SHAREPolicy Number: Hospital [id number] Repository Date:[id number] [place], [place] [address]QV: 08/31/2018 Tertiary NOT GIVENUNK [place] Insurance:SELF PAY [facility] Hospital Number: Effective Repository Date:2018-08-31 08/31/2018 TUNDE A Primary NINFA Shin [id number] TR Insurance:MEDICARE LINTDOB: [address] PART A [facility] [id number] Hospital [address]Wun: (330) Number: Repository [phone] () [id number] Date:2018-08-31 08/31/2018 Secondary TUNDE Hawthorne LINTDOB: [place] Insurance:[facility] [id number] Community SHAREPolicy Number: Hospital [id number] Repository Date:[id number] [place], [place] [address]AT: 08/31/2018 Tertiary NOT GIVENUNK [place] Insurance:SELF PAY [facility] Hospital Number: Effective Repository Date:2018-08-31 08/31/2018 TUNDE A Primary NINFA Shin [id number] TR Insurance:MEDICARE LINTDOB: Community [facility] BOX PART A [facility] [id number] Number: Repository [id number]: 330 [id number] [phone] () Date:2018-08-31 08/31/2018 Secondary TUNDE Hawthorne LINTDOB: [place] Insurance:[facility] [id number] [facility] SHAREPolicy Number: Hospital [id number] Repository Date:[id number] [id number] [place], [place] [address]EH: 08/31/2018 Tertiary NOT GIVENUNK [place] Insurance:SELF PAY [facility] Number: Effective Repository Date:2018-08-31
== END 2018-09-24 13:30 | disposition home or self-care (01) | DRG 947 ==
PROVIDERS: Admitting Provider Family Medicine Geriatric Medicine; Family Provider Internal Medicine; PCP Internal Medicine; Visit Provider Family Medicine Geriatric Medicine
DX: R53.81 Other malaise (principal); I26.99 Other pulmonary embolism without acute cor pulmonale; I82.403 Acute embolism and thrombosis of unspecified deep veins of lower extremity, bilateral; C79.51 Secondary malignant neoplasm of bone; J90 Pleural effusion, not elsewhere classified; C82.10 Follicular lymphoma grade II, unspecified site; L89.151 Pressure ulcer of sacral region, stage 1; E05.90 Thyrotoxicosis, unspecified without thyrotoxic crisis or storm; K58.9 Irritable bowel syndrome, unspecified; Z23 Encounter for immunization
CPT/HCPCS: 36415; 80048; 85025; 92526; 92610; 97110; 97116; 97162; 97166; 97530; 97535; 90670; 90686

== ENCOUNTER 2018-09-25 21:25 | Emergency (ER) | payer MEDICARE, OTHER, SELFPAY ==
[2018-09-24 09:05] VITALS: BMI 19.6
[2018-09-25 21:26] VITALS: BP 133/88; PULSE 84; RESP 16; TEMP 36.6; O2SAT 94; BMI 19.5
--- NOTE | 2018-09-25 21:44 | US_ITS ---
STUDY: VENOUS DOPPLER ULTRASOUND - BILATERAL LOWER EXTREMITIES REASON FOR EXAM: Female, 73 years old. Right leg swelling TECHNIQUE: Ultrasound evaluation of the deep vein system to include sims-scale imaging and compression was performed. Sims-scale imaging and Doppler sonographic evaluation, including duplex spectral analysis and qualitative color flow sonography, was performed. COMPARISON: None. FINDINGS: RIGHT LEG Common Femoral Vein: Normal compression, spontaneity and augmentation. Normal color Doppler. Common Femoral Vein/Greater Saphenous Junction: Normal compression. No internal echoes are seen. Deep Femoral Vein: Not imaged Femoral Proximal: Normal compression. No internal echoes are seen. Femoral Middle: Normal compression, spontaneity and augmentation. Normal color Doppler. Femoral Distal: Normal compression. No internal echoes are seen. Popliteal Vein: Partially compressible. Internal echoes are seen consistent with chronic DVT. Color flow is noted. Posterior Tibial Vein: Normal compression. No internal echoes are seen. Peroneal Vein: Normal compression. No internal echoes are seen. LEFT LEG Common Femoral Vein: Normal compression, spontaneity and augmentation. Normal color Doppler. Common Femoral Vein/Greater Saphenous Junction: Normal compression. No internal echoes are seen. Deep Femoral Vein: Not imaged Femoral Proximal: Normal compression. No internal echoes are seen. Femoral Middle: Normal compression, spontaneity and augmentation. Normal color Doppler. Femoral Distal: Normal compression. No internal echoes are seen. Popliteal Vein: Normal compression, spontaneity and augmentation. Normal color Doppler. Posterior Tibial Vein: Normal compression. No internal echoes are seen. Peroneal Vein: Normal compression. No internal echoes are seen. 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 N.B. : The above information has been verbally conveyed by Lkue Tong MD to Jocelyn Marquez MD, on 09/25/2018 23:01:09 (ET). Electronically Signed: Luke Tong MD at 22:52 EST , Service support ,
--- NOTE | 2018-09-25 23:03 | ED.VISSUMM ---
- ER Visit Summary Date of Service: 09/25/18 Chief Complaint: Right leg swelling History of Present Illness: The patient is a 73 F with history of lymphoma, DVT and PE. She is currently on Eliquis. Patient was in the TCU the through the . She states today her right leg is more swollen. It is not painful. It is wanted to be sure that she did not have a new blood clot. Patient is on 2 L nasal cannula chronically for dyspnea and denies any change in her shortness of breath. Physical Examination: Vital signs unremarkable. O2 sat is 94% on 2 L. Patient sitting upright in bed no acute distress. Heart is regular rate and rhythm. Lung sounds are clear. Abdomen is soft nontender. Lower extremity examination was 1+ left lower extremity edema with 2-3+ right lower extremity edema. There is no focal tenderness. There is no sign of cellulitis. Strong distal pulses are noted. Test Results: [] Emergency Department Course and Treatment: Venous ultrasound of the right leg reveals chronic nonocclusive DVT of the right popliteal vein. No evidence of acute DVT. Test results are discussed with patient and daughters at bedside. She will continue her Eliquis. She will also continue her Lasix and be sure to elevate her legs. Treatment Plan: [] Disposition: Discharge Impression: Chronic DVT right leg This note was generated with [employer] dictation software. It may contain incorrect words, spelling, and punctuation that were not noted in review of the chart prior to signing ED Disposition - Plan for ED Patient: Chief Complaint: Lower Extremity Injury Referrals: Jacob Reyes Chi, MD [Primary Care Provider] -
--- NOTE | 2018-09-25 23:06 | ED.DEP ---
ED Disposition - Plan for ED Patient: Disposition: Home or Assisted Living Chief Complaint: Lower Extremity Injury Instructions: ED Leg Swelling Unilateral Referrals: Jacob Reyes Chi, MD [Primary Care Provider] -
[2018-09-25 23:17] VITALS: RESP 16
== END 2018-09-25 23:18 | disposition home or self-care (01) ==
PROVIDERS: Emergency Provider Emergency Medicine; Family Provider Family Medicine Geriatric Medicine; PCP Family Medicine Geriatric Medicine
DX: I82.5Z1 Chronic embolism and thrombosis of unspecified deep veins of right distal lower extremity (principal); Z86.711 Personal history of pulmonary embolism; Z79.01 Long term (current) use of anticoagulants; Z85.72 Personal history of non-Hodgkin lymphomas; Z79.899 Other long term (current) drug therapy
CPT/HCPCS: 93970; 99282

== ENCOUNTER → 2018-09-30 15:33 | Outpatient (CLI) | payer MEDICARE, SELFPAY ==
[2018-09-30 11:36] VITALS: BMI 20.5
[2018-09-30 18:07] LABS: Absolute Lymphocyte Count 1.62 X10^3/ul (0.83-4.51); Absolute Neutrophil Count 2.1 X10^3/uL (2.0-7.7); Basophil# 0.02 X10^3/uL; Basophil% 0.4 % (0-1); Eosinophil# 0.35 X10^3/uL; Eosinophils% 7.5 % (0-5); Hematocrit 36.4 % (37-47); Hemoglobin 11.5 g/dl (12.0-15.0); Lymphocyte # 1.62 X10^3/ul (4.0); Lymphocyte % 34.5 % (19-41); Mean Corp Hgb Conc 31.6 g/gl (32-36); Mean Corpuscular Hgb 30.1 pg (27.0-32.0); Mean Corpuscular Volume 95.3 fL (81-99); Mean Platelet Vol. 10.8 fl (6.2-12.0); Monocyte# 0.61 X10^3/uL; Neutrophil # 2.08 X10^3/uL (2.7-7.7); Neutrophil % 44.4 % (47-70); Platelet Count 227 K/mm3 (150-450); RBC Distribution Width CV 12.7 % (11.6-14.6); RBC Distribution Width SD 42.7 fl (35.1-43.9); Red Blood Count 3.82 M/mm3 (4.2-5.4); White Blood Count 4.7 K/mm3 (4.4-11.0)
[2018-09-30 18:10] LABS: POSITIVE COUNT NO; POSITIVE DIFFERENTIAL NO; POSITIVE MORPHOLOGY NO
[2018-09-30 18:34] LABS: ALB/GLOB Ratio 0.8 RATIO (0.9-2.4); AST(SGOT) 22 U/L (15-37); Alanine Aminotransfer ALT/SGPT 12 U/L (13-56); Albumin, Serum 2.4 g/dL (3.2-5.0); Alkaline Phosphatase 77 U/L (45-117); Anion Gap 7 (5-15); BUN 19 mg/dL (7-18); Calcium,Total 8.2 mg/dL (8.5-10.1); Chloride 107 mmol/L (98-107); Cholesterol 201 mg/dL (200); EST Glomerular Filtration Rate 58 mL/min (>60); Est Glom Filt Rate - Afr Amer 70 mL/min (>60); Glucose 92 mg/dL (74-106); High Density Lipoprotein 46 mg/dL; Potassium 4.7 mmol/L (3.5-5.1); Protein, Total 5.4 g/dL (6.4-8.2); Sodium Level 141 mmol/L (136-145); Thyroid Stim Hormone (TSH) 2.36 uIU/mL (0.358-3.74); Triglycerides 125 mg/dL; Very Low Density Lipoprotein 25 mg/dL (5-40)
[2018-09-30 18:36] LABS: Vitamin D,25 Hydroxy 27.8 ng/mL (29.95-100.01)
== END ==
PROVIDERS: Family Provider Surgery; PCP Internal Medicine; Visit Provider Family Medicine Geriatric Medicine
DX: Z00.00 Encounter for general adult medical examination without abnormal findings (principal); E55.9 Vitamin D deficiency, unspecified
CPT/HCPCS: 36415; 80053; 80061; 82306; 84443; 85025

== ENCOUNTER → 2018-11-05 12:40 | Outpatient (CLI) | payer MEDICARE, OTHER, SELFPAY ==
[2018-11-04 08:55] VITALS: BMI 20.6
[2018-11-05 13:41] LABS: Anion Gap 8 (5-15); BUN 18 mg/dL (7-18); BUN/Creat Ratio 25.5 RATIO (10-20); Calcium,Total 8.7 mg/dL (8.5-10.1); Chloride 112 mmol/L (98-107); Creatinine, Serum 0.71 mg/dL (0.55-1.02); EST Glomerular Filtration Rate 86 mL/min (>60); Est Glom Filt Rate - Afr Amer 104 mL/min (>60); Glucose 75 mg/dL (74-106); Potassium 3.4 mmol/L (3.5-5.1); Sodium Level 149 mmol/L (136-145)
== END ==
PROVIDERS: Family Provider Internal Medicine; PCP Internal Medicine; Referring Provider Family Medicine Geriatric Medicine; Visit Provider Family Medicine Geriatric Medicine
DX: R60.9 Edema, unspecified (principal)
CPT/HCPCS: 36415; 80048

== ENCOUNTER 2018-12-02 16:43 | Outpatient (RCR) | payer MEDICARE, SELFPAY ==
[2018-11-04 08:55] VITALS: BMI 20.6
--- NOTE | 2018-12-02 16:40 | HP.SP.DC ---
ST Discharge Summary - Discharged: Discharge: I attempted completion of the clinical assessment of swallow functions this date (12/02/2018), though approximately 10 minutes into the session, the Patient expressed a desire to discontinue the assessment, as she reports no changes in her swallow function have occurred post Transitional Care Unit admission, and has been tolerating a thin liquid diet without complications. While the Patient was somewhat drowsy due to recently administered IV Benadryl, she appears to express herself with sufficient insight and appropriate forethought to suggest that she understands the potential medical complications that would accompany aspiration. The Patients was present for the entirety of the session, and additionally expresses agreement with the Patient that she is not demonstrating any overt signs or symptoms of aspiration. I encouraged both to contact her medical team if any overt signs or symptoms of aspiration / dysphagia arise, and would be more than willing to complete the assessment with Patient agreement and if medically appropriate. Will discharge from the caseload at this time.
== END 2018-12-02 17:49 | disposition home or self-care (01) ==
LOC: SP 16:43
PROVIDERS: Family Provider Internal Medicine; PCP Internal Medicine; Visit Provider Student in an Organized Health Care Education/Training Program
DX: R13.12 Dysphagia, oropharyngeal phase (principal)
CPT/HCPCS: 92526

== ENCOUNTER → 2018-12-21 13:12 | Outpatient (CLI) | payer OTHER, MEDICARE, SELFPAY ==
[2018-11-30 11:54] VITALS: BMI 19.5
[2018-12-16 10:01] VITALS: BMI 18.6
--- NOTE | 2018-12-21 15:55 | PFTCOMP_ITS ---
COMPLETE PULMONARY FUNCTION TEST INTERPRETATION Brief HPI: Patient is a 73 year old female, currently under the care of myself, who presents to [facility] for complete pulmonary function tests secondary to diagnosis of dyspnea. Respiratory therapist reports good effort and reproducible results. Interpretation: Forced expiration spirometry shows a mild large airways obstructive ventilatory defect with an FEV1 of 86% predicted. There is no significant bronchodilator response by strict ATS criteria. Spirograms are of good quality and plateau slowly, indicating slowly emptying areas of the lungs. The respiratory flow volume loop shows decreased expiratory flow rates at high lung volumes consistent with small airways obstruction. Lung volumes by body plethysmography show a normal total lung capacity at 4.62 L, 105% predicted. All other lung volumes are within normal limits. Diffusion capacity by carbon monoxide is normal at 87% predicted. The airway resistance is normal. No previous pulmonary function tests were available for review. Impression: Irreversible mild large airways obstructive ventilatory defect with preserved diffusion capacity and lung volumes.
== END ==
PROVIDERS: Family Provider Internal Medicine; PCP Internal Medicine; Referring Provider Internal Medicine Critical Care Medicine; Visit Provider Internal Medicine Critical Care Medicine
DX: J90 Pleural effusion, not elsewhere classified (principal)
CPT/HCPCS: 94060; 94726; 94729

== ENCOUNTER → 2018-12-22 12:28 | Outpatient (CLI) | payer OTHER, MEDICARE, SELFPAY ==
[2018-11-30 11:54] VITALS: BMI 19.5
[2018-12-16 10:01] VITALS: BMI 18.6
[2018-12-22 12:30] VITALS: PULSE 78; PULSE 84; PULSE 86; PULSE 87; PULSE 90; PULSE 94; PULSE 95; O2SAT 95; O2SAT 97; O2SAT 98
--- NOTE | 2018-12-22 13:57 | PCM.PSN.6M ---
PSN 6 Minute Walk Test - 6 Minute Walk Test 6 Minute Walk Test: 6 Minute Walk Test PSN:6-Minute Walk Test Start: 12/22/18 12:56 Freq: Status: Active Protocol: RESP.6MINW Document 12/22/18 12:30 NIRANJAN (Rec: 12/22/18 13:00 JLA [id number]) 6 Minute Walk Test Date Performed 12/22/18 Time Performed 12:30 Height 5 ft 2 in Weight: 47.847 kg Weight in Pounds 105.[address]: Junaid Norman Assistive device used: None Pre-test Oxygen Delivery Method Room Air Pulse Ox (%) 98 Pulse Rate (60-100 beats/min) 86 Dyspnea Lokesh Scale (0-10) 0 Exertion Lokesh Scale (6-20) 6 1st minute Oxygen Delivery Method Room Air Pulse Ox (%) 97 Pulse Rate (60-100 beats/min) 90 2nd minute Oxygen Delivery Method Room Air Pulse Ox (%) 98 Pulse Rate (60-100 beats/min) 94 3rd minute Oxygen Delivery Method Room Air Pulse Ox (%) 95 Pulse Rate (60-100 beats/min) 87 4th minute Oxygen Delivery Method Room Air Pulse Ox (%) 95 Pulse Rate (60-100 beats/min) 95 5th minute Oxygen Delivery Method Room Air Pulse Ox (%) 98 Pulse Rate (60-100 beats/min) 84 6th minute Oxygen Delivery Method Room Air Pulse Ox (%) 98 Pulse Rate (60-100 beats/min) 90 Dyspnea Lokesh Scale (0-10) 0 Exertion Lokesh Scale (6-20) 11 Post-test Oxygen Delivery Method Room Air Pulse Ox (%) 98 Pulse Rate (60-100 beats/min) 78 Full Laps Walked 16 Partial Lap, Number of Tiles Walked 15 Total Distance Walked (ft) 959 - Interpretation Interpretation: The patient was able to ambulate 959 feet over the course of 6 minutes on room air with no assistive devices or breaks. The patient had no significant desaturation or tachycardia during testing. These findings are consistent with a musculoskeletal limitation exercise tolerance. - Recommendations Recommendations: No supplemental oxygen is indicated at this time.
== END ==
PROVIDERS: Family Provider Internal Medicine; PCP Internal Medicine; Referring Provider Internal Medicine Critical Care Medicine; Visit Provider Internal Medicine Critical Care Medicine
DX: J90 Pleural effusion, not elsewhere classified (principal)
CPT/HCPCS: 94618

== ENCOUNTER → 2018-12-23 11:47 | Outpatient (CLI) | payer MEDICARE, OTHER, SELFPAY ==
[2018-12-16 10:01] VITALS: BMI 18.6
--- NOTE | 2018-12-23 11:49 | CT_ITS ---
STUDY: CT SOFT TISSUE NECK WITH CONTRAST REASON FOR EXAM: Female, 73 years old. Restaging follow-up follicular lymphoma history of breast cancer RADIATION DOSAGE (If Supplied By Facility): CTDIvol = ( 8.96 ) mGy, DLP = ( 880.41 ) mGycm TECHNIQUE: The patient was scanned in a multi-detector CT scanner. High resolution transaxial imaging was performed following intravenous administration of Isovue 370 100ml IV. Sagittal and coronal images were reconstructed. Individualized dose optimization techniques were used for this CT. COMPARISON: None. FINDINGS: Normal bilateral parotid glands. Normal bilateral produce sorter spaces. Normal bilateral parapharyngeal spaces. Normal bilateral carotid spaces. Normal bilateral sublingual and submandibular glands and spaces. Normal visualized nasopharynx. Normal retropharyngeal space. Normal perivertebral space. Normal visualized bilateral faucial tonsils. The visualized tongue, tongue base and oropharynx are normal. The visualized cervical lymph nodes (levels I-) are within normal size limits, and maintain normal morphology. There is no demonstrated solid or cystic mass lesion. There is no abnormal contrast enhancement. Normal epiglottis, bilateral vallecula and hypopharynx. The pre-epiglottic and paraglottic adipose spaces are normal. Normal visualized bilateral piriform sinuses, aryepiglottic folds, vocal cords, and arytenoid-cricoid articulations. Normal subglottic trachea. There is visualized layering fluid in the left side maxillary sinus. There is a vaguely visualized low attenuation within the right side of the thyroid measuring 8 x 7 mm. There is minimal right maxillary mucosal thickening. There is degenerative change of the cervical spine. There is multilevel spondylosis. There is multilevel facet arthropathy. At the level of L4-L5 there is a right sided facet arthropathy moderate right neural foramina narrowing. C5-C6 there is disc space narrowing and facet arthropathy mild to moderate right neural foraminal narrowing. There is a visualize right-sided Port-A-Cath the tip is in the superior vena cava. CT/Soft Tissue Neck WITH Contrast IMPRESSION: No significant large enhancing lymphadenopathy. Partially visualized minimal sinusitis. Partially visualized left effusion Right-sided Port-A-Cath Degenerative changes of the cervical spine Small low attenuating nodule in the right thyroid for which further evaluation with ultrasound could be considered. Better than visualized on the CT chest there is a small nodule in the right apex which appears to be pleural-based measuring approximately 3.9 cm. This appears more wispy on the CT chest. Recommend continued follow-up. Electronically Signed: Selene Caro MD at 13:53 EDT Tel , Service support ,
--- NOTE | 2018-12-23 11:49 | CT_ITS ---
STUDY: CT ABDOMEN AND PELVIS WITH CONTRAST REASON FOR EXAM: Female, 73 years old. Follicular lymphoma, breast cancer restaging RADIATION DOSAGE (If Supplied By Facility): CTDIvol = ( 8.96 ) mGy, DLP = ( 880.41 ) mGycm TECHNIQUE: Transaxial images were obtained from the dome of the diaphragm to the symphysis pubis without oral contrast. Isovue 300 100ml IV was administered. Sagittal and coronal images were reconstructed. Individualized dose optimization techniques were used for this CT. COMPARISON: September 28, [address] September 10, 2018 CT scan abdomen and pelvis. FINDINGS: There is a small left effusion. There are no visualized nodules in the lung bases. The fluid is much less on the left side when compared to prior study and is resolved on the right side. There is borderline cardiac enlargement. There is a small pericardial effusion which is similar to the prior study. The liver is low attenuating. There is a well-circumscribed cystic structure in the posterior aspect of the liver measuring 1.2 x 1.1 cm. This is stable when compared to prior study September 10, 2018. There are small too small characterize 3.5 mm thick structures in the liver approximately 4 which are stable since prior study Normal gallbladder and extrahepatic biliary system. The spleen measures 11 x 10 x 6 cm on today's study. This is similar in appearance to the prior studies. Normal pancreas. There is a mildly thickened appearance of the bilateral adrenal glands with adjacent shotty lymphadenopathy. Since the prior study September 10, 2018 and September 28, 2018 there is been a marked reduction in the lymphadenopathy in the retroperitoneum. There is mild right hydronephrosis. This has improved since prior study. There is a cyst in the right kidney measuring 5.1 mm. This is stable when compared to prior study. Normal left kidney. Normal visualized stomach. There mildly distended loops of small bowel. There is moderate stool in the colon. There is diverticulosis without diverticulitis. There is a small amount of free fluid in the pelvis. There is presacral stranding. There is non-visualization of the appendix. Aorta is partially calcified and tortuous. Normal inferior vena cava. As a reference at the level of image #37 and the left kidney there is a focus of lymphadenopathy that measures 2.1 x 2.8 cm to the left of the aorta. This is just below the takeoff of the left renal artery. At the same level on the prior study this lymphadenopathy measured 4.5 x 4.8 cm. The right sided lymphadenopathy is shotty and visualized as small single lymph nodes behind the IVC. There is still a matted patch of lymphadenopathy at the bifurcation although much reduced. Measuring from anterior to posterior at the level of the bifurcation the soft tissue density now measures 2.2 cm and it did measure approximately 4.0 cm. There is presacral stranding which is reduced when compared to prior study. It appeared on prior study that there was a coating of the retroperitoneum with lymphadenopathy which is markedly reduced. There is still a thickened slightly clouded appearance of the retroperitoneum. Within the right side groin there is a lesser enhancing lymph node measures 2.2 x 1.5 cm. On prior study measured 5.0 x 3.0 cm. There is still soft tissue edema. Normal urinary bladder. The uterus appears atrophied. There is an abnormal cyst in the right side of the adnexa this measures 7.0 x 6.7 cm. Normal abdominal wall. There is degenerative change in the thoracolumbar spine. There is subtle foci of low attenuation within the L4 and L5 vertebral body as well as L1 and T12. These are somewhat indeterminant. There is a focus of sclerotic density within the anterior aspect at the level of T10 raising concern for a sclerotic met. The bones are somewhat osteopenic in the pelvis. There is focal subchondral cyst formation in the right acetabulum. At the level of L3-L4 there is a broad disc bulge. There is moderate neural foraminal narrowing. CT/Abdomen/Pelvis W IV Cont ONLY IMPRESSION: Since the prior study September 28, 2018 and September 10, 2018 there is been a marked reduction in the pathology within the abdomen and pelvis. The matted lymph nodes are much reduced as detailed above. The lymph nodes in the groin are much reduced from near massive to moderate to small. In addition there is been improvement of the hydronephrosis on the right side however it still persists and is likely secondary to the lymphadenopathy that remains or scarring. There is a better visualized right adnexal cyst when compared to the prior study it measures 7.0 x 6.7 cm. This should be considered atypical and possibly associated with neoplasm until proven otherwise. Potentially this could represent a necrotic lymph node but thought to be or likely an ovarian mass. Recommend pelvic ultrasound and/or MRI if possible. Resolved right effusion. Small to moderate left effusion much reduced since prior study. T10 sclerotic lesion which is similar to prior study which raises concern for metastatic focus. There is nonspecific low attenuation within the thoracolumbar spine that may represent small lytic lesions versus small foci of osteoporosis. Stable liver cyst Moderate constipation diverticulosis no evidence of diverticulitis. Electronically Signed: Selene Caro MD at 13:26 EDT Tel , Service support ,
--- NOTE | 2018-12-23 11:49 | CT_ITS ---
STUDY: CT CHEST WITH CONTRAST REASON FOR EXAM: Female, 73 years old. Cancer Follow-up RADIATION DOSAGE (If Supplied By Facility): CTDIvol = ( 8.96 ) mGy, DLP = ( 880.41 ) mGycm TECHNIQUE: Transaxial imaging was performed following intravenous administration of Isovue 370 100ml IV. Multiplanar coronal and sagittal images were reformatted. Individualized dose optimization techniques were used for this CT. COMPARISON: CT chest September 13, 2018 FINDINGS: There is a right thyroid low attenuation measuring 1.1 cm. This is vaguely visualized on the prior study September 13, 2018. There is a right-sided portacatheter tip is in the superior vena cava. There is a reduced normal appearance of the bilateral axilla. The breast tissue is diminutive. There is a right lung base nodule measuring 8.6 mm. There is trace thickening of the right major fissure. Since prior study there is a resolve of the right effusion. Since prior study the fluid in the left chest is reduced to small to moderate. There is mild cardiac enlargement. There is calcification in the subcarinal region measuring 9.1 mm. Normal hilar regions. Normal enhanced pulmonary arteries. Normal aorta arch and descending thoracic aorta. There is a persistent sclerotic density at T10 measuring approximately 1.1 x 1.2 cm. Abdominal anatomy is been discussed on the dedicated CT scan of the abdomen and pelvis performed the same day. CT/Chest WITH Contrast IMPRESSION: Resolved right effusion. Minimal right lizzy- Aortic thickening of the soft tissue. Right lung base nodule measuring 8.6 mm not seen on prior study due to the large effusion. Small to moderate left effusion much reduced since prior study Reduced size axillary lymph nodes. Stable right thyroid cyst or mass recommend follow-up ultrasound when appropriate. Calcifications in the mediastinum most likely compatible granulomatous disease can be seen with treated lymphoma. Electronically Signed: Selene Caro MD at 13:40 EDT Tel , Service support ,
== END ==
PROVIDERS: Family Provider Internal Medicine; PCP Internal Medicine; Referring Provider Internal Medicine Hematology & Oncology; Visit Provider Internal Medicine Hematology & Oncology
DX: C82.10 Follicular lymphoma grade II, unspecified site (principal)
CPT/HCPCS: 70491; 71260; 74177; Q9967

== ENCOUNTER → 2018-12-29 14:52 | Outpatient (CLI) | payer MEDICARE, OTHER, SELFPAY ==
[2018-11-18 10:11] VITALS: BMI 19.5
[2018-12-16 10:01] VITALS: BMI 18.6
[2018-12-29 16:11] LABS: Absolute Lymphocyte Count 0.85 X10^3/ul (0.83-4.51); Absolute Neutrophil Count 2.9 X10^3/uL (2.0-7.7); Basophil# 0.03 X10^3/uL; Basophil% 0.6 % (0-1); Eosinophil# 0.21 X10^3/uL; Eosinophils% 4.4 % (0-5); Hematocrit 33.7 % (37-47); Lymphocyte # 0.85 X10^3/ul (4.0); Mean Corp Hgb Conc 32.6 g/gl (32-36); Mean Corpuscular Hgb 28.9 pg (27.0-32.0); Mean Corpuscular Volume 88.7 fL (81-99); Mean Platelet Vol. 10.5 fl (6.2-12.0); Monocyte# 0.68 X10^3/uL; Monocyte% 14.4 % (0-10); Neutrophil # 2.94 X10^3/uL (2.7-7.7); Neutrophil % 62.4 % (47-70); Platelet Count 183 K/mm3 (150-450); RBC Distribution Width CV 15.8 % (11.6-14.6); RBC Distribution Width SD 51.1 fl (35.1-43.9); White Blood Count 4.7 K/mm3 (4.4-11.0)
[2018-12-29 16:13] LABS: POSITIVE COUNT NO; POSITIVE DIFFERENTIAL NO; POSITIVE MORPHOLOGY NO
[2018-12-29 16:30] LABS: Vitamin D,25 Hydroxy 28.1 ng/mL (29.95-100.01)
[2018-12-29 16:35] LABS: ALB/GLOB Ratio 1.3 RATIO (0.9-2.4); AST(SGOT) 16 U/L (15-37); Alanine Aminotransfer ALT/SGPT 18 U/L (13-56); Albumin, Serum 3.6 g/dL (3.2-5.0); Alkaline Phosphatase 98 U/L (45-117); Anion Gap 7 (5-15); BUN 14 mg/dL (7-18); BUN/Creat Ratio 20.4 RATIO (10-20); Calcium,Total 8.2 mg/dL (8.5-10.1); Chloride 107 mmol/L (98-107); Creatinine, Serum 0.69 mg/dL (0.55-1.02); EST Glomerular Filtration Rate 89 mL/min (>60); Est Glom Filt Rate - Afr Amer 108 mL/min (>60); Globulin 2.7 g/dL (2.2-4.2); Glucose 77 mg/dL (74-106); Potassium 3.5 mmol/L (3.5-5.1); Protein, Total 6.3 g/dL (6.4-8.2); Sodium Level 144 mmol/L (136-145); Thyroid Stim Hormone (TSH) 1.43 uIU/mL (0.358-3.74)
== END ==
PROVIDERS: Visit Provider Family Medicine Geriatric Medicine
DX: E55.9 Vitamin D deficiency, unspecified (principal); R53.83 Other fatigue
CPT/HCPCS: 36415; 80053; 82306; 84443; 85025

== ENCOUNTER → 2019-03-29 14:28 | Outpatient (CLI) | payer MEDICARE, OTHER, SELFPAY ==
[2019-03-25 13:28] VITALS: BMI 20.2
[2019-03-29 16:09] LABS: Absolute Lymphocyte Count 0.43 X10^3/ul (0.83-4.51); Basophil# 0.01 X10^3/uL; Basophil% 0.2 % (0-1); Eosinophil# 0.05 X10^3/uL; Hematocrit 30.1 % (37-47); Hemoglobin 10.1 g/dl (12.0-15.0); Lymphocyte # 0.43 X10^3/ul (4.0); Lymphocyte % 8.5 % (19-41); Mean Corp Hgb Conc 33.6 g/gl (32-36); Mean Corpuscular Hgb 29.4 pg (27.0-32.0); Mean Corpuscular Volume 87.5 fL (81-99); Mean Platelet Vol. 10.3 fl (6.2-12.0); Monocyte% 11.8 % (0-10); Neutrophil # 3.97 X10^3/uL (2.7-7.7); Neutrophil % 78.3 % (47-70); Platelet Count 180 K/mm3 (150-450); RBC Distribution Width CV 15.2 % (11.6-14.6); RBC Distribution Width SD 48.9 fl (35.1-43.9); Red Blood Count 3.44 M/mm3 (4.2-5.4); White Blood Count 5.1 K/mm3 (4.4-11.0)
[2019-03-29 16:10] LABS: Differential Indicated SCAN CRITERIA MET; POSITIVE COUNT NO; POSITIVE DIFFERENTIAL YES; POSITIVE MORPHOLOGY NO
[2019-03-29 16:18] LABS: Vitamin D,25 Hydroxy 13.5 ng/mL (29.95-100.01)
[2019-03-29 16:24] LABS: AST(SGOT) 12 U/L (15-37); Alanine Aminotransfer ALT/SGPT 12 U/L (13-56); Albumin, Serum 3.2 g/dL (3.2-5.0); Alkaline Phosphatase 88 U/L (45-117); Anion Gap 8 (5-15); BUN 18 mg/dL (7-18); BUN/Creat Ratio 25.7 RATIO (10-20); Calcium,Total 8.7 mg/dL (8.5-10.1); Chloride 107 mmol/L (98-107); EST Glomerular Filtration Rate 87 mL/min (>60); Est Glom Filt Rate - Afr Amer 105 mL/min (>60); Globulin 3.2 g/dL (2.2-4.2); Glucose 90 mg/dL (74-106); Potassium 3.8 mmol/L (3.5-5.1); Protein, Total 6.4 g/dL (6.4-8.2); Sodium Level 141 mmol/L (136-145); Thyroid Stim Hormone (TSH) 1.19 uIU/mL (0.358-3.74)
[2019-03-29 17:03] LABS: Differential Comment SCANNED
== END ==
PROVIDERS: Visit Provider Family Medicine Geriatric Medicine
DX: E55.9 Vitamin D deficiency, unspecified (principal); R53.83 Other fatigue; T14.8XXA Other injury of unspecified body region, initial encounter
CPT/HCPCS: 36415; 80053; 82306; 84443; 85025

== ENCOUNTER 2019-04-01 22:30 | Emergency (ER) | payer MEDICARE, OTHER, SELFPAY ==
[2019-03-25 13:28] VITALS: BMI 20.2
[2019-04-01 22:32] VITALS: BP 146/78; PULSE 91; RESP 18; TEMP 38.2; O2SAT 98; BMI 18.2
--- NOTE | 2019-04-01 22:53 | ED.DCSUM_ITS ---
- ER Visit Summary Date of Service: 04/01/19 Chief Complaint: Fever and rash History of Present Illness: The patient is a 74 F who presents with fever and a rash. This is been going on for 4 days. She has had a fever up to 102. She also noticed a rash over her trunk. She does have a history of non-Hodgkin's lymphoma. Her last chemotherapy treatment was February 24. She is currently in remission. She had a PET scan on March 22, 2010 days ago. She denies any other focal symptoms. She denies any pain. No congestion sore throat cough shortness of breath abdominal pain nausea vomiting diarrhea. She denies any urinary symptoms such as dysuria frequency urgency. Physical Examination: Temperature 100.7 vitals otherwise normal Well-appearing in no distress Moist mucous membranes Heart regular rate and rhythm Lungs are clear Abdomen soft nontender There is a nonspecific macular blanching rash to the trunk no induration not hot to the touch no petechiae no purpura Test Results: Labs unremarkable. No neutropenia. Hemoglobin is 10.2. Potassium 3.1. Urinalysis not consistent with infection. Chest x-ray shows no acute disease. Blood and urine cultures were sent. Emergency Department Course and Treatment: Patient's work-up as above is unremarkable. She is well-appearing. Blood pressure stable, not tachycardic or tachypneic. Etiology of her fever is unclear but is likely due to self-limited illness possibly related to a viral syndrome. She does not appear to have any focal bacterial infection at this time. I did speak to her oncologist who agreed with plan for discharge. She understands to follow-up as an outpatient. She was advised on supportive care. She understands to return for new or worsening symptoms. Treatment Plan: [] Disposition: Discharge Impression: Fever This note was generated with [employer] dictation software. It may contain incorrect words, spelling, and punctuation that were not noted in review of the chart prior to signing ED Disposition - Plan for ED Patient: Referrals: Jacob Reyes Chi, MD [Primary Care Provider] -
[2019-04-01 22:56] LABS: Bacteria 0 SEEN /hpf (None Seen); Mucous, Urine 0 SEEN /hpf (<or=2+)
[2019-04-01 23:02] LABS: Color, Urine Yellow (Yellow); Glucose, Dipstick Normal (Normal); Ketone-Dipstick 15 mg/dl (Negative); Leukocyte Esterase-Dipstick 25 /ul (Negative); Nitrite-Dipstick Negative (Negative); Occult Blood-Urine 10 /ul (Negative); Protein-Dipstick 30 mg/dl (Negative); Urine Bilirubin Dipstick Negative (Negative); Urine Clarity Sl. Cloudy (Clear); Urine Urobilinogen Normal (Normal)
[2019-04-01 23:04] LABS: Red Blood Cells-Urine 0-5 SEEN /hpf (0-5); Squamous Epithelial Cells - UA 0-5 SEEN /hpf (5-10); White Blood Cells 0-5 SEEN /hpf (0-5)
--- NOTE | 2019-04-01 23:05 | RAD_ITS ---
HISTORY: FEVER AND RASH SINCE FRIDAYLAST CHEMO ON February EXAM: XR Chest 2 Views: COMPARISON: September 14, 2018 chest x-ray. March 22, 2019 PET/CT is also available. FINDINGS: # of images incl. paperwork: 2 Right IJ single lumen port is new. Position adequate. No evidence of complications from placement of the port. Hyperexpanded with a posterior peripheral parenchymal pulmonary perfusion. Calcification amongst the tracheobronchial tree. Possibly some left hilar calcified lymph nodes in the left lung granuloma are similar. Basilar atelectasis and pleural effusions have resolved Heart is not enlarged. 16 mm sclerotic focus within the T11 vertebral body was present on the previous studies. In this patient with a port, possibly related to chemotherapy infusion, this is consistent with a sclerotic metastasis. It has not increased in size since the previous study. It was present on the PET/CT, and not tracer avid. Pulmonary vascularity is distinct. No effusions. RAD/Chest PA and Lateral IMPRESSION: No acute cardiopulmonary disease perceived. Evidence for obstructive lung disease. at 2330 Reported and signed by: Jean Rivas MD Electronically Signed: Jean Rivas MD at 23:29 EDT Tel , Service support ,
[2019-04-01 23:09] LABS: Absolute Lymphocyte Count 0.38 X10^3/ul (0.83-4.51); Absolute Neutrophil Count 5.8 X10^3/uL (2.0-7.7); Basophil# 0.01 X10^3/uL; Basophil% 0.1 % (0-1); Eosinophil# 0.06 X10^3/uL; Eosinophils% 0.9 % (0-5); Hematocrit 29.8 % (37-47); Hemoglobin 10.2 g/dl (12.0-15.0); Lymphocyte # 0.38 X10^3/ul (4.0); Lymphocyte % 5.7 % (19-41); Mean Corp Hgb Conc 34.2 g/gl (32-36); Mean Corpuscular Hgb 29.6 pg (27.0-32.0); Mean Corpuscular Volume 86.4 fL (81-99); Mean Platelet Vol. 9.8 fl (6.2-12.0); Monocyte# 0.36 X10^3/uL; Monocyte% 5.4 % (0-10); Neutrophil # 5.81 X10^3/uL (2.7-7.7); Neutrophil % 86.7 % (47-70); Platelet Count 190 K/mm3 (150-450); RBC Distribution Width CV 14.7 % (11.6-14.6); RBC Distribution Width SD 44.4 fl (35.1-43.9); Red Blood Count 3.45 M/mm3 (4.2-5.4); White Blood Count 6.7 K/mm3 (4.4-11.0)
[2019-04-01 23:10] LABS: Differential Indicated SCAN CRITERIA MET; POSITIVE COUNT NO; POSITIVE DIFFERENTIAL YES; POSITIVE MORPHOLOGY NO
[2019-04-01 23:23] LABS: ALB/GLOB Ratio 0.9 RATIO (0.9-2.4); AST(SGOT) 12 U/L (15-37); Alanine Aminotransfer ALT/SGPT 9 U/L (13-56); Albumin, Serum 3.2 g/dL (3.2-5.0); Alkaline Phosphatase 93 U/L (45-117); Anion Gap 8 (5-15); BUN 14 mg/dL (7-18); BUN/Creat Ratio 17.9 RATIO (10-20); Calcium,Total 8.7 mg/dL (8.5-10.1); Chloride 105 mmol/L (98-107); Creatinine, Serum 0.78 mg/dL (0.55-1.02); EST Glomerular Filtration Rate 77 mL/min (>60); Est Glom Filt Rate - Afr Amer 93 mL/min (>60); Globulin 3.5 g/dL (2.2-4.2); Glucose 108 mg/dL (74-106); Potassium 3.1 mmol/L (3.5-5.1); Protein, Total 6.7 g/dL (6.4-8.2); Sodium Level 139 mmol/L (136-145)
[2019-04-02 00:01] VITALS: BP 139/70; PULSE 89; RESP 14; TEMP 37.4; O2SAT 98
--- NOTE | 2019-04-02 00:21 | ED.DEP ---
ED Disposition - Plan for ED Patient: Instructions: FEVER CONTROL (Adult) Referrals: Jacob Reyes Chi, MD [Primary Care Provider] -
== END 2019-04-02 00:28 | disposition home or self-care (01) ==
LOC: ED 23:05
PROVIDERS: Emergency Provider Emergency Medicine; Family Provider Family Medicine Geriatric Medicine; PCP Family Medicine Geriatric Medicine
DX: R50.9 Fever, unspecified (principal); R21 Rash and other nonspecific skin eruption; Z85.72 Personal history of non-Hodgkin lymphomas; Z86.718 Personal history of other venous thrombosis and embolism; Z79.01 Long term (current) use of anticoagulants
CPT/HCPCS: 71046; 80053; 81001; 85025; 87040; 87086; 99284; A4216

== ENCOUNTER → 2019-04-06 15:46 | Outpatient (CLI) | payer MEDICARE, OTHER, SELFPAY ==
[2019-04-01 22:32] VITALS: BMI 18.2
[2019-04-06 17:20] LABS: Anion Gap 9 (5-15); BUN 13 mg/dL (7-18); BUN/Creat Ratio 19.5 RATIO (10-20); Calcium,Total 8.9 mg/dL (8.5-10.1); Chloride 102 mmol/L (98-107); Creatinine, Serum 0.67 mg/dL (0.55-1.02); EST Glomerular Filtration Rate 92 mL/min (>60); Est Glom Filt Rate - Afr Amer 111 mL/min (>60); Glucose 94 mg/dL (74-106); Potassium 3.6 mmol/L (3.5-5.1); Sodium Level 139 mmol/L (136-145)
== END ==
PROVIDERS: Family Provider Family Medicine Geriatric Medicine; PCP Family Medicine Geriatric Medicine; Visit Provider Family Medicine Geriatric Medicine
DX: E87.6 Hypokalemia (principal)
CPT/HCPCS: 36415; 80048

== ENCOUNTER → 2019-06-30 11:25 | Outpatient (CLI) | payer MEDICARE, OTHER, SELFPAY ==
[2019-06-29 09:47] VITALS: BMI 22.8
[2019-06-30 12:21] LABS: Absolute Lymphocyte Count 0.46 X10^3/uL (0.83-4.51); Absolute Neutrophil Count 2.6 X10^3/uL (2.0-7.7); Basophil# 0.01 X10^3/uL; Basophil% 0.3 % (0-1); Eosinophil# 0.02 X10^3/uL; Eosinophils% 0.5 % (0-5); Hematocrit 34.4 % (37-47); Hemoglobin 11.3 g/dL (12.0-15.0); Lymphocyte # 0.46 X10^3/ul (4.0); Lymphocyte % 12.1 % (19-41); Mean Corp Hgb Conc 32.8 g/dL (32-36); Mean Corpuscular Hgb 28.9 pg (27.0-32.0); Mean Platelet Vol. 10.6 fl (6.2-12.0); Monocyte# 0.69 X10^3/uL; Monocyte% 18.2 % (0-10); NRBC Flagged by Analyzer 0 % (0-5); Neutrophil # 2.58 X10^3/uL (2.7-7.7); Neutrophil % 68.1 % (47-70); POSITIVE DIFFERENTIAL YES; Platelet Count 167 K/mm3 (150-450); RBC Distribution Width CV 13.7 % (11.6-14.6); RBC Distribution Width SD 43.7 fl (35.1-43.9); Red Blood Count 3.91 M/mm3 (4.2-5.4); White Blood Count 3.8 K/mm3 (4.4-11.0)
[2019-06-30 12:24] LABS: Vitamin D,25 Hydroxy 22.5 ng/mL (29.95-100.01)
[2019-06-30 12:26] LABS: Differential Indicated SCAN CRITERIA MET
[2019-06-30 12:28] LABS: ALB/GLOB Ratio 1.3 RATIO (0.9-2.4); AST(SGOT) 22 U/L (15-37); Alanine Aminotransfer ALT/SGPT 21 U/L (13-56); Albumin, Serum 3.8 g/dL (3.2-5.0); Alkaline Phosphatase 81 U/L (45-117); Anion Gap 7 (5-15); BUN 20 mg/dL (7-18); BUN/Creat Ratio 24.1 RATIO (10-20); Calcium,Total 9.1 mg/dL (8.5-10.1); Chloride 106 mmol/L (98-107); Creatinine, Serum 0.83 mg/dL (0.55-1.02); EST Glomerular Filtration Rate 72 mL/min (>60); Est Glom Filt Rate - Afr Amer 87 mL/min (>60); Globulin 2.9 g/dL (2.2-4.2); Glucose 92 mg/dL (74-106); Potassium 3.9 mmol/L (3.5-5.1); Protein, Total 6.7 g/dL (6.4-8.2); Sodium Level 142 mmol/L (136-145); Thyroid Stim Hormone (TSH) 1.86 uIU/mL (0.358-3.74)
[2019-07-01 14:18] LABS: Pathologist Review Reviewed
== END ==
PROVIDERS: Visit Provider Family Medicine Geriatric Medicine
DX: E55.9 Vitamin D deficiency, unspecified (principal); R53.83 Other fatigue
CPT/HCPCS: 36415; 80053; 82306; 84443; 85025

== ENCOUNTER → 2019-08-02 17:14 | Outpatient (CLI) | payer MEDICARE, SELFPAY ==
[2019-07-29 12:30] VITALS: BMI 21.4
--- NOTE | 2019-08-02 17:15 | MRI_ITS ---
ACR Level 3 findings have been noted. An addendum which confirms receipt of the report will follow. STUDY: MRI BRAIN WITH AND WITHOUT CONTRAST REASON FOR EXAM: Female, 74 years old. Weakness. Forgetfulness. History of immunocompromise and lymphoma. TECHNIQUE: Standardized multiplanar fat and water weighted pulse sequences were obtained. IV Dotarem 10 was administered for the contrast portion of the examination. COMPARISON: None. FINDINGS: No acute infarct. No mass effect, midline shift, or hydrocephalus. Mild FLAIR/T2 hyperintensity within the bilateral putamen, and within the posterior shai along the anterior aspect of the fourth ventricle, and within the medial thalami. Also within the subcortical white matter in the right anterior temporal lobe, and inferomedial aspect of the right inferior frontal gyrus No abnormal enhancement. Subcentimeter focus of T1 hyperintensity within the anterior aspect of the right putamen. Faint similar T1 hyperintensity in the left anterior putamen. No associated susceptibility. No definite evidence of hemorrhage. No intracranial DVT. Major flow voids preserved. No acute osseous abnormality. Paranasal sinuses patent. MRI/Brain W/WO Contrast IMPRESSION: Mild edema within the bilateral putamen, posterior shai, medial thalami, and small foci in the right anterior temporal lobe and right inferior frontal gyrus. Suggestive of a mild toxic/metabolic encephalopathy. No associated mass effect or abnormal enhancement to suggest lymphoma or other neoplasm. No restricted diffusion or acute infarct. Progressive multifocal leukoencephalopathy while possible is not likely given the complete lack of mass effect and the symmetric bilateral involvement of the putamen and thalami; this distribution is more compatible with a toxic/metabolic encephalopathy. T1 hyperintensity in the right greater than left putamen most likely underlying mineralization given the lack of susceptibility. A small amount of hemorrhage cannot be excluded however. Consider CSF analysis and close follow-up imaging. Correlation with CT might be helpful. Electronically Signed: Luke Adler, at 21:22 EDT Tel , Service support ,
== END ==
PROVIDERS: Family Provider Internal Medicine; PCP Internal Medicine; Referring Provider Internal Medicine Hematology & Oncology; Visit Provider Internal Medicine Hematology & Oncology
DX: C82.10 Follicular lymphoma grade II, unspecified site (principal); H53.2 Diplopia; R63.4 Abnormal weight loss; R53.83 Other fatigue; R41.82 Altered mental status, unspecified; Z79.899 Other long term (current) drug therapy
CPT/HCPCS: 70553; A9575

== ENCOUNTER 2019-08-03 14:04 | Inpatient (IN) | payer MEDICARE, OTHER, SELFPAY ==
[2019-07-29 12:30] VITALS: BMI 21.4
[2019-08-03] VITALS (8 sets, daily range): BP systolic 134–165; BP diastolic 67–90; PULSE 60–70; RESP 15–18; TEMP 36.6–37.4; O2SAT 98–99; BMI 18.9; BMI 18.7
--- NOTE | 2019-08-03 15:29 | ED.VIS.GEN ---
History of Present Illness Chief Complaint: Lower Extremity Injury Detail of Chief Complaint: Left lower extremity atraumatic pain and abnormal MRI Informant: Patient, Significant Other Onset: Days Context: Sudden Onset Timing: Intermittent Quality: Confusion and left lower extremity pain Location: Tests and left lower extremity Current Severity: Mild Maximum Severity: Moderate Worsened by: Uncertain Relieved by: Nothing Associated Symptoms: Vision, intermittent headache and left lower extremity pain Narrative: Patient is an elderly woman diagnosed with non-Hodgkin's lymphoma October 2018 presently on chemotherapy. Had an MRI which reveals abnormality of multiple areas that may represent toxic encephalitis, infectious or metabolic. Patient is not a good informant. was the primary informant. Patient's only present complaint is left lower extremity pain. She is presently on Eliquis because of DVT right lower extremity. Prior similar symptoms: No Recent Illness/Hospitalization: Yes - Past Medical History (1) DVT, bilateral lower limbs Status: Acute (2) Fatigue Status: Acute (3) Follicular lymphoma grade II Status: Chronic (4) History of hyperthyroidism Status: Chronic (5) Hypertension Status: Chronic (6) IBS (irritable bowel syndrome) Status: Chronic Comment: controlled with diet (7) Pelvic mass in female Status: Chronic (8) Pulmonary embolism Status: Chronic (9) Mass of left axilla Status: Resolved Past Medical History - Allergies and Home Meds Allergies/Adverse Reactions: Allergies No Known Allergies Allergy (Verified 08/03/19 14:11) Primary Care Physician: Mikey Diamond MD [STAFF PHYSICIAN] - Prior records reviewed: Yes Surgical History: - - Lumpectomy, Thoracentesis, port placement, right inguinal excisional lymph node biopsy. Lives: Spouse/ Significant Other Smoking Status: Never smoker Alcohol: None Drugs: None - Family History Maternal Family History: Family History (Last Reviewed 07/29/19 @ 12:29 by Monica North) Mother Hypertension Cancer Diabetes Father Diabetes Kidney disease Hypertension Hyperlipemia Sister Breast cancer Family History: Reports: Cancer - Cervical., Diabetes Paternal Family History: Family History (Last Reviewed 07/29/19 @ 12:29 by Monica North) Mother Hypertension Cancer Diabetes Father Diabetes Kidney disease Hypertension Hyperlipemia Sister Breast cancer Family History: Reports: Cancer - Skin., Heart Disease Review of Systems General: Reports: Chills, Malaise, Weight loss. Denies: Fever Eyes: Denies: Visual changes - bilaterally, Blurred Vision - bilaterally ENT: Reports: Rhinorrhea. Denies: Bilateral ear pain, Sore throat Cardiovascular: Denies: Chest pain, Palpitations Respiratory: Denies: Dyspnea, Cough, Sputum, Dyspnea on exertion Gastrointestinal: Denies: Abdominal pain, Nausea, Vomiting, Diarrhea, Melena, Hematochezia Genitourinary: Denies: Dysuria, Hematuria, Frequency Musculoskeletal: Reports: Extremity Pain. Denies: Myalgias, Arthralgias, Neck pain, Back pain, Swelling, -, - Skin: Denies: Rash, Wounds Neurological: Reports: Headache Psych: Reports: Depression. Denies: Suicidal thoughts Endocrine: Reports: Polyuria, Polydipsia Hematologic: Reports: Easy bruising Allergy: Denies: Uticaria, Swelling of the mouth Physical Exam Vital Signs/Narrative: Vital Signs Temp Pulse Resp BP Pulse Ox 08/03/19 14:06 99.3 F H 70 15 160/79 H 98 Inital Vital Signs reviewed: Yes General: Well developed, Cachectic Head: Normocephalic, Atraumatic Eyes: Perrl, EOMI, Pale conjunctiva ENT: No rhinorrhea, TM's clear, Dry mucous membranes Neck: Supple, Nontender, No lymphadenopathy, No JVD Cardiovascular: Regular rate, Regular rhythm, No murmurs, Normal S1, Normal S2 Respiratory: No distress, CTA bilaterally, Chest nontender Abdomen: Soft, Nontender, Nondistended, Normal bowel sounds Skin: Normal color, No rash, No Trauma. Negative for: Cyanosis, Diaphoresis, Jaundice Neurological: Oriented x3, Cranial nerves II-XII grossly intact, Normal Strength, Normal Sensation. Negative for: Alert Psychological: Depressed Diagnostic/Tx/Re-eval IMPRESSION: Mild edema within the bilateral putamen, posterior shai, medial thalami, and small foci in the right anterior temporal lobe and right inferior frontal gyrus. Suggestive of a mild toxic/metabolic encephalopathy. No associated mass effect or abnormal enhancement to suggest lymphoma or other neoplasm. No restricted diffusion or acute infarct. Progressive multifocal leukoencephalopathy while possible is not likely given the complete lack of mass effect and the symmetric bilateral involvement of the putamen and thalami; this distribution is more compatible with a toxic/metabolic encephalopathy. T1 hyperintensity in the right greater than left putamen most likely underlying mineralization given the lack of susceptibility. A small amount of hemorrhage cannot be excluded however. Consider CSF analysis and close follow-up imaging. Correlation with CT might be helpful. N.B. : The above information has been verbally conveyed by Luke Adler to MD Pramod, on 08/03/2019 10:54:45 (ET). Laboratory Results 08/03/19 08/03/19 08/03/19 16:10 16:10 16:10 WBC 2.3 L RBC 4.07 L Hgb 11.9 L Hct 35.1 L MCV 86.2 MCH 29.2 MCHC 33.9 RDW Std Deviation 43.2 RDW Coeff of Abhilash 14.0 Plt Count 162 MPV 10.6 Immature Gran % (Auto) 0.900 Neut % (Auto) 56.9 Lymph % (Auto) 23.1 [place] % (Auto) 17.8 H Eos % (Auto) 0.9 Baso % (Auto) 0.4 Absolute Neuts (auto) 1.3 L Absolute Lymphs (auto) 0.52 L Nucleated RBC % 0 Differential Comment SCANNED Diff Path Review May foll Sodium 143 Potassium 3.7 Chloride 108 H Carbon Dioxide 30.0 Anion Gap 5 BUN 13 Creatinine 0.70 Estim Creat Clear Calc 37.82 Est GFR (MDRD) Af Amer 106 Est GFR (MDRD) Non-Af 87 BUN/Creatinine Ratio 18.7 Glucose 93 Lactic Acid 0.7 Calcium 9.0 Total Bilirubin 0.50 AST 17 ALT 15 Alkaline Phosphatase 69 Total Protein 6.6 Albumin 3.6 Globulin 3.0 Albumin/Globulin Ratio 1.2 Urine Color Urine Clarity Urine pH Ur Specific [place] Urine Protein Urine Glucose (UA) Urine Ketones Urine Occult Blood Urine Nitrite Urine Bilirubin Urine Urobilinogen Ur Leukocyte Esterase Urine RBC Urine WBC Ur Squamous Epith Cells Urine Bacteria Urine Mucus 08/03/19 16:45 WBC RBC Hgb Hct MCV MCH MCHC RDW Std Deviation RDW Coeff of Abhilash Plt Count MPV Immature Gran % (Auto) Neut % (Auto) Lymph % (Auto) [place] % (Auto) Eos % (Auto) Baso % (Auto) Absolute Neuts (auto) Absolute Lymphs (auto) Nucleated RBC % Differential Comment Diff Path Review Sodium Potassium Chloride Carbon Dioxide Anion Gap BUN Creatinine Estim Creat Clear Calc Est GFR (MDRD) Af Amer Est GFR (MDRD) Non-Af BUN/Creatinine Ratio Glucose Lactic Acid Calcium Total Bilirubin AST ALT Alkaline Phosphatase Total Protein Albumin Globulin Albumin/Globulin Ratio Urine Color Yellow Urine Clarity Clear Urine pH 6.0 Ur Specific [place] 1.020 Urine Protein Negative Urine Glucose (UA) Normal Urine Ketones Negative Urine Occult Blood 10 H Urine Nitrite Negative Urine Bilirubin Negative Urine Urobilinogen Normal Ur Leukocyte Esterase Negative Urine RBC 0 SEEN Urine WBC 0 SEEN Ur Squamous Epith Cells 0 SEEN Urine Bacteria 0 SEEN Urine Mucus 1+ Patient is neutropenic. Suspect this is secondary to chemotherapy. - Medical Decision Making In light of MRI findings need to evaluate for HSV infection. Since patient is on anticoagulant because of bilateral DVT and PE she is not a candidate for lumbar puncture. Will treat with IV antiviral. Appropriate blood work was ordered. Her oncologist called in prior to arrival. He requested admission with consultation to ID and neurology. Because there is edema on the MRI will give dose of Decadron as well as antiviral. Patient to be admitted to PCU. ED Disposition - Plan for ED Patient: Disposition: Acute Care Hospital [facility] Diagnosis: Change in mental status, Brain edema, Neutropenia due to and not concurrent with chemotherapy Referrals: Mikey Diamond MD [STAFF PHYSICIAN] -
[2019-08-03 16:26] LABS: Absolute Lymphocyte Count 0.52 X10^3/uL (0.83-4.51); Absolute Neutrophil Count 1.3 X10^3/uL (2.0-7.7); Basophil# 0.01 X10^3/uL; Basophil% 0.4 % (0-1); Eosinophil# 0.02 X10^3/uL; Eosinophils% 0.9 % (0-5); Hematocrit 35.1 % (37-47); Hemoglobin 11.9 g/dL (12.0-15.0); Lymphocyte # 0.52 X10^3/ul (4.0); Lymphocyte % 23.1 % (19-41); Mean Corp Hgb Conc 33.9 g/dL (32-36); Mean Corpuscular Hgb 29.2 pg (27.0-32.0); Mean Corpuscular Volume 86.2 fL (81-99); Mean Platelet Vol. 10.6 fl (6.2-12.0); Monocyte% 17.8 % (0-10); NRBC Flagged by Analyzer 0 % (0-5); Neutrophil # 1.28 X10^3/uL (2.7-7.7); Neutrophil % 56.9 % (47-70); POSITIVE DIFFERENTIAL YES; Platelet Count 162 K/mm3 (150-450); RBC Distribution Width SD 43.2 fl (35.1-43.9); Red Blood Count 4.07 M/mm3 (4.2-5.4); White Blood Count 2.3 K/mm3 (4.4-11.0)
[2019-08-03] MEDS: Acyclovir 800 MG Tablet PO (16:36)
[2019-08-03 16:38] LABS: Differential Indicated SCAN CRITERIA MET
[2019-08-03 16:43] LABS: ALB/GLOB Ratio 1.2 RATIO (0.9-2.4); AST(SGOT) 17 U/L (15-37); Alanine Aminotransfer ALT/SGPT 15 U/L (13-56); Albumin, Serum 3.6 g/dL (3.2-5.0); Alkaline Phosphatase 69 U/L (45-117); Anion Gap 5 (5-15); BUN 13 mg/dL (7-18); BUN/Creat Ratio 18.7 RATIO (10-20); Chloride 108 mmol/L (98-107); EST Glomerular Filtration Rate 87 mL/min (>60); Est Glom Filt Rate - Afr Amer 106 mL/min (>60); Estimated Creatinine Clearance 37.82 ml/min; Glucose 93 mg/dL (74-106); Lactic Acid 0.7 mmol/L (0.4-2.0); Potassium 3.7 mmol/L (3.5-5.1); Protein, Total 6.6 g/dL (6.4-8.2); Sodium Level 143 mmol/L (136-145)
[2019-08-03 16:54] LABS: Bacteria 0 SEEN /hpf (None Seen); Red Blood Cells-Urine 0 SEEN /hpf (0-5); Squamous Epithelial Cells - UA 0 SEEN /hpf (5-10); White Blood Cells 0 SEEN /hpf (0-5)
[2019-08-03 17:06] LABS: Color, Urine Yellow (Yellow); Glucose, Dipstick Normal (Normal); Ketone-Dipstick Negative (Negative); Leukocyte Esterase-Dipstick Negative /ul (Negative); Nitrite-Dipstick Negative (Negative); Occult Blood-Urine 10 /ul (Negative); Protein-Dipstick Negative (Negative); Urine Bilirubin Dipstick Negative (Negative); Urine Clarity Clear (Clear); Urine Urobilinogen Normal (Normal)
[2019-08-03 17:07] LABS: Mucous, Urine 1+ /hpf (<or=2+)
[2019-08-03 17:08] LABS: Differential Comment SCANNED
[2019-08-03] MEDS: dexAMETHasone 10 MG/ML Vial IV (18:36)
--- NOTE | 2019-08-03 19:25 | HP.PCM_ITS ---
Problem List (1) Meningitis Status: Acute History of Present Illness Date of Admission: 08/03/19 Chief Complaint: altered mental status The patient is a 74 year old F who has had a progressive decline over the past 3 weeks. Family describes patient is a very outgoing and energetic, however the past 3 weeks, patient has been just more listless, lethargic and fatigued. Patient had an outpatient MRI performed on the and they received the results today which reported mild edema within the bilateral Jaime, posterior shia, medial thalami and small foci in the right anterior temporal lobe and right inferior frontal gyrus. Suggestive of mild toxic/metabolic encephalopathy. No associated mass noted. In the emergency room, patient received acyclovir as well as IV Decadron. [] Past Medical History Past Medical History (Chronic Problems): Chronic Problems (Last Reviewed 07/29/19 @ 12:29 by Monica North) Hypertension (Chronic) Follicular lymphoma grade II (Chronic) Hyperthyroidism (Chronic) Pulmonary embolism (Chronic) Pleural effusion, bilateral (Chronic) Weight loss, non-intentional (Chronic) Pelvic mass in female (Chronic) IBS (irritable bowel syndrome) (Chronic) controlled with diet History of hyperthyroidism (Chronic) Medical History: Medical History (Last Reviewed 08/03/19 @ 19:29 by Anastacio Asher DO) Hypercoagulable state (Acute) D68.59 Educational circumstance (Acute) Z55.9 Follicular lymphoma grade II (Chronic) C82.10 Encounter for adjustment or management of vascular access device (Acute) Z45.2 Mass of left axilla (Resolved) R22.32 Shortness of breath (Acute) R06.02 Hyperthyroidism (Chronic) E05.90 DVT, bilateral lower limbs (Acute) I82.403 Pulmonary embolism (Chronic) I26.99 Pleural effusion, bilateral (Chronic) J90 Weight loss, non-intentional (Chronic) R63.4 Pelvic mass in female (Chronic) R19.00 IBS (irritable bowel syndrome) (Chronic) K58.9 controlled with diet History of hyperthyroidism (Chronic) Z86.39 Allergies No Known Allergies Allergy (Verified 08/03/19 14:11) Home Medications: Ambulatory Orders Medication Instructions Recorded Apixaban [Eliquis] 5 mg PO BID #60 tab 09/23/18 Surgical History: Surgical History (Last Reviewed 08/03/19 @ 19:29 by Anastacio Asher DO) History of lumpectomy Z98.890 breast lump, 1990s, benign History of thoracentesis Z98.890 [facility] 09/01/18 axilla biopsy Onset Date: ~09/18/18 s/p port placement Onset Date: ~09/18/18 Surgical History: - - Lumpectomy, Thoracentesis, port placement, right inguinal excisional lymph node biopsy. Psychiatric History: No pertinent psych hx GANG BOSS History: No pertinent GANG BOSS history Lives: Spouse/ Significant Other Smoking Status: Never smoker Alcohol: None Drugs: None - *Family History Maternal Family History: Family History (Last Reviewed 08/03/19 @ 19:29 by Anastacio Asher DO) Mother Hypertension Cancer Diabetes Father Diabetes Kidney disease Hypertension Hyperlipemia Sister Breast cancer History Items: Cancer - Cervical., Diabetes Paternal Family History: Family History (Last Reviewed 08/03/19 @ 19:29 by Anastacio Asher DO) Mother Hypertension Cancer Diabetes Father Diabetes Kidney disease Hypertension Hyperlipemia Sister Breast cancer History Items: Cancer - Skin., Heart Disease Review of Systems Constitutional: Reports: Malaise, Weakness. Denies: Anorexia, Chills, Fever Eyes: Denies: Blurred vision, Double vision HEENT: Denies: Head Aches, Sinus Congestion, Sinus Drainage Cardiovascular: Denies: Chest Pain, Palpitations Respiratory: Denies: Cough, Shortness of breath at rest, Sputum production Gastrointestinal: Denies: Abdominal Pain, Nausea, Vomiting Genitourinary: Denies: Dysuria Musculoskeletal: Denies: Joint Pain, Joint Tenderness Skin: Denies: Rash, Wounds Neurological: Denies: Numbness, Tingling, Focal weakness Psychiatric: Denies: Anxiety, Depression Endocrine: Reports: Change in Body Habitus - Has lost several pounds over the past few weeks Hematologic/ Lymphatic: Denies: Easy Bruising, Easy Bleeding, Hx of blood clot Comment: All review systems are otherwise negative except for as mentioned above and in the HPI. VTE Information - Inpt Only VTE Present on Admission: No VTE Mechan Device Prophylaxis: None VTE Pharm Prophylaxis ordered?: Yes Patient Problems: Active and Suspected Problems (Last Reviewed 07/29/19 @ 12:29 by Monica North) Altered mental status (Acute) Brain edema (Acute) Neutropenia due to and not concurrent with chemotherapy (Acute) Meningitis (Acute) - Physical Exam Vitals/I&O's: Vital Signs Temp Pulse Resp BP Pulse Ox 36.6 C 61 17 157/90 H 98 08/03/19 17:02 08/03/19 18:16 08/03/19 18:16 08/03/19 18:16 08/03/19 18:16 Oxygen Delivery Method Room Air Weight: 48.534 kg Body Mass Index (BMI) 18.9 General: Alert, Oriented x3, Cooperative, No apparent distress HEENT: Atraumatic, Normocephalic Oral: Moist Mucosa, No Gingival or Mucosal Lesions/ Ulcerations, - - No meningismus Neck: No Nodes, Thyroid Normal Size and Texture Lungs: Clear to auscultation, Normal air movement, No rhonchi, No wheeze Cardiovascular: Regular rate, Regular Rhythm, Normal S1, Normal S2, No murmurs Abdomen: Bowel Sounds Present, Soft, Non Tender, Non-Distended, No Hepato- splenomegaly Extremities: No clubbing, No cyanosis, No edema, No Calf Tenderness Skin: No rashes, No breakdown Musculoskeletal: Cachexia, Muscle Wasting Neurological: Cranial nerves II-XII grossly intact, Neuro grossly intact, Motor Exam 5/5 strength throughout, - - Negative Kernig's and Brudzinski sign Psych/Mental Status: Normal Affect, Appropriate Laboratory Results 08/03/19 16:10: WBC 2.3 L, RBC 4.07 L, Hgb 11.9 L, Hct 35.1 L, MCV 86.2, MCH 29.2, MCHC 33.9, RDW Std Deviation 43.2, RDW Coeff of Abhilash 14.0, Plt Count 162, MPV 10.6, Immature Gran % (Auto) 0.900, Neut % (Auto) 56.9, Lymph % (Auto) 23.1, Crawford % (Auto) 17.8 H, Eos % (Auto) 0.9, Baso % (Auto) 0.4, Absolute Neuts (auto) 1.3 L, Absolute Lymphs (auto) 0.52 L, Nucleated RBC % 0, Differential Comment SCANNED, Diff Path Review February08/03/19 16:10: Sodium 143, Potassium 3.7, Chloride 108 H, Carbon Dioxide 30.0, Anion Gap 5, BUN 13, Creatinine 0.70, Estim Creat Clear Calc 37.82, Est GFR (MDRD) Af Amer 106, Est GFR (MDRD) Non-Af 87, BUN/Creatinine Ratio 18.7, Glucose 93, Calcium 9.0, Total Bilirubin 0.50, AST 17, ALT 15, Alkaline Phosphatase 69, Total Protein 6.6, Albumin 3.6, Globulin 3.0, Albumin/Globulin Ratio 1.2 08/03/19 16:10: Lactic Acid 0.7 08/03/19 16:45: Urine Color Yellow, Urine Clarity Clear, Urine pH 6.0, Ur Spec ific [place] 1.020, Urine Protein Negative, Urine Glucose (UA) Normal, Urine Ketones Negative, Urine Occult Blood 10 H, Urine Nitrite Negative, Urine Bilirubin Negative, Urine Urobilinogen Normal, Ur Leukocyte Esterase Negative, Urine RBC 0 SEEN, Urine WBC 0 SEEN, Ur Squamous Epith Cells 0 SEEN, Urine Bacteria 0 SEEN, Urine Mucus 1+ MRI brain:No acute infarct. No mass effect, midline shift, or hydrocephalus. Mild FLAIR/T2 hyperintensity within the bilateral putamen, and within the posterior shai along the anterior aspect of the fourth ventricle, and within the medial thalami. Also within the subcortical white matter in the right anterior temporal lobe, and inferomedial aspect of the right inferior frontal gyrus No abnormal enhancement. Subcentimeter focus of T1 hyperintensity within the anterior aspect of the right putamen. Faint similar T1 hyperintensity in the left anterior putamen. No associated susceptibility. No definite evidence of hemorrhage. No intracranial DVT. Major flow voids preserved. No acute osseous abnormality. Paranasal sinuses patent. IMPRESSION: Mild edema within the bilateral putamen, posterior shai, medial thalami, and small foci in the right anterior temporal lobe and right inferior frontal gyrus. Suggestive of a mild toxic/metabolic encephalopathy. No associated mass effect or abnormal enhancement to suggest lymphoma or other neoplasm. No restricted diffusion or acute infarct. Progressive multifocal leukoencephalopathy while possible is not likely given the complete lack of mass effect and the symmetric bilateral involvement of the putamen and thalami; this distribution is more compatible with a toxic/metabolic encephalopathy. T1 hyperintensity in the right greater than left putamen most likely underlying mineralization given the lack of susceptibility. A small amount of hemorrhage cannot be excluded however. Consider CSF analysis and close follow-up imaging. Correlation with CT might be helpful. Assessment/Plan All Active Problems (Last Reviewed 07/29/19 @ 12:29 by Monica North) Sinus drainage (Acute) Diarrhea (Acute) Fatigue (Acute) Altered mental status (Acute) Somnolence (Acute) Weight loss (Acute) Anorexia (Acute) Brain edema (Acute) Neutropenia due to and not concurrent with chemotherapy (Acute) Meningitis (Acute) Hypercoagulable state (Acute) Educational circumstance (Acute) Encounter for adjustment or management of vascular access device (Acute) Mass of left axilla (Resolved) Shortness of breath (Acute) DVT, bilateral lower limbs (Acute) 1. Possible meningitis * Versus encephalitis versus other * Clinically, patient does not appear to be that ill * Plan is to repeat a head CT to evaluate the edema. If the edema is worse than may need to consider transfer to tertiary facility with neurosurgery coverage. Family is aware that this could be a possibility * In the meantime, I will treat patient for suspected meningitis with IV Decadron, acyclovir, ceftriaxone, vancomycin and ampicillin to cover listeria given her age greater than 50 * Will put in for an order for a lumbar puncture. That will not be able to be done until the at the earliest. Patient's last dose of apixaban was this morning at 0800 * ID and neurology consult 2. Grade 1-2 follicular lymphoma * Recent PET showed good partial remission of the disease. Patient had received bendamustine and Rituxan from October to February 2019. Patient to continue with Rituxan maintenance * Follow-up with Dr. Berger as outpt 3. History of DVT and PE * Patient on apixaban as outpatient. Apixaban is currently being held for the ventral lumbar puncture. At the earliest opportunity, resume apixaban. 4. VTE prophylaxis: SCDs while patient is off of apixaban 5. Advanced care planning: Discussed with patient about CPR. Patient was not really sure initially said no but was not definitive. I recommend the patient further discussed with her family but told him that they did not see her need to make a decision now or during this hospitalization. I told him that I would leave her at full CODE STATUS at this time. Code Visit Inpatient E&M: 93274 Init Hosp L3
--- NOTE | 2019-08-03 19:27 | CT_ITS ---
STUDY: CT BRAIN WITHOUT CONTRAST REASON FOR EXAM: Female, 74 years old. Brain edema. Hypertension and lymphoma. RADIATION DOSAGE (If Supplied By Facility): CTDIvol = ( 44.99 ) mGy, DLP = ( 796.11 ) mGycm TECHNIQUE: Transaxial CT imaging of the brain was performed without administration of intravenous contrast material. Individualized dose optimization techniques were used for this CT. COMPARISON: MRI 08/02/2019 FINDINGS: Normal soft tissue structures. Normal calvarium. There is mild cerebral atrophy with widening of the extra-axial spaces and ventricular dilatation. There are areas of decreased attenuation within the white matter tracts of the supratentorial brain, consistent with microvascular disease changes. Normal basal ganglia and thalami. Normal brainstem. There is mild cerebellar atrophy. No evidence for edema. There is no intracranial hemorrhage. There are no findings of an acute ischemic infarction. Normal visualized paranasal sinuses. CT/Brain/Head without Contrast IMPRESSION: No acute abnormality. No evidence for cerebral edema. Mild atrophy and White matter disease. Electronically Signed: Ricci Arango MD at 20:52 EDT , Service support ,
[2019-08-03] MEDS: 0.9% Normal Saline 1,000 ML 100 ML IV (20:53)
[2019-08-04] VITALS (11 sets, daily range): BP systolic 128–156; BP diastolic 56–76; PULSE 60–73; RESP 14–18; TEMP 36.4–37.2; O2SAT 96–99
[2019-08-04] MEDS: dexAMETHasone 4 MG/ML Vial 7 MG IV ×3 (00:17→12:57)
[2019-08-04 05:02] LABS: Absolute Lymphocyte Count 0.15 X10^3/uL (0.83-4.51); Absolute Neutrophil Count 2.3 X10^3/uL (2.0-7.7); Basophil# 0.01 X10^3/uL; Basophil% 0.4 % (0-1); Hematocrit 35.9 % (37-47); Hemoglobin 12.1 g/dL (12.0-15.0); Lymphocyte # 0.15 X10^3/ul (4.0); Lymphocyte % 5.6 % (19-41); Mean Corp Hgb Conc 33.7 g/dL (32-36); Mean Corpuscular Hgb 29.1 pg (27.0-32.0); Mean Corpuscular Volume 86.3 fL (81-99); Mean Platelet Vol. 10.1 fl (6.2-12.0); Monocyte# 0.16 X10^3/uL; NRBC Flagged by Analyzer 0 % (0-5); Neutrophil # 2.32 X10^3/uL (2.7-7.7); Neutrophil % 86.9 % (47-70); POSITIVE DIFFERENTIAL YES; POSITIVE MORPHOLOGY YES; Platelet Count 146 K/mm3 (150-450); RBC Distribution Width CV 13.8 % (11.6-14.6); RBC Distribution Width SD 42.8 fl (35.1-43.9); Red Blood Count 4.16 M/mm3 (4.2-5.4); White Blood Count 2.7 K/mm3 (4.4-11.0)
[2019-08-04 05:08] LABS: Differential Indicated SCAN CRITERIA MET
[2019-08-04 05:10] LABS: International Normalized Ratio 1.2; Prothrombin Time (Protime)PT. 14.7 SECONDS (11.7-14.9)
[2019-08-04 05:25] LABS: Anion Gap 6 (5-15); BUN 12 mg/dL (7-18); BUN/Creat Ratio 17.1 RATIO (10-20); Calcium,Total 8.8 mg/dL (8.5-10.1); Chloride 108 mmol/L (98-107); EST Glomerular Filtration Rate 87 mL/min (>60); Est Glom Filt Rate - Afr Amer 105 mL/min (>60); Glucose 140 mg/dL (74-106); Potassium 3.7 mmol/L (3.5-5.1); Sodium Level 143 mmol/L (136-145); Thyroid Stim Hormone (TSH) 0.54 uIU/mL (0.358-3.74)
[2019-08-04 05:47] LABS: Differential Comment SCANNED
[2019-08-04] MEDS: 0.9% Saline Lock 10 ML Syringe IV (06:05)
--- NOTE | 2019-08-04 06:34 | PCM.RX.CS ---
Consult Pharmacy has been consulted to manage selected antiobiotic: Vancomycin Type of Consult: New start Suspected Infection: Meningitis Labs: Sodium 143 mmol/L (136-145) 08/04/19 04:55 Potassium 3.7 mmol/L (3.5-5.1) 08/04/19 04:55 Chloride 108 mmol/L (98-107) H 08/04/19 04:55 Carbon Dioxide 29.0 mmol/L (21.0-32.0) 08/04/19 04:55 Anion Gap 6 (5-15) 08/04/19 04:55 BUN 12 mg/dL (7-18) 08/04/19 04:55 Creatinine 0.70 mg/dL (0.55-1.02) 08/04/19 04:55 Est GFR (MDRD) Af Amer 105 mL/min (>60) 08/04/19 04:55 Est GFR (MDRD) Non-Af 87 mL/min (>60) 08/04/19 04:55 BUN/Creatinine Ratio 17.1 RATIO (10-20) 08/04/19 04:55 Glucose 140 mg/dL (74-106) H 08/04/19 04:55 Weight used for dosin kg Estimated Creatinine Clearance: 38 ML/MIN Goal Trough: 15-20 mcg/mL Pharmacy Plan for Drug Dosing: Initial loading dose of 1250mg IV was given last night at 22:24. Will continue with 750mg IV q24h to start tonight. A trough will be drawn before the 3rd total dose. Pharmacy Service will continue to monitor and adjust dosing as required. Follow-Up Labs: Trough Vancomycin Labs to be done on [date and time ordered]: 08/05/19 21:30
--- NOTE | 2019-08-04 09:14 | PCM.PROGNOTE ---
Patient Problems: Active and Suspected Problems (Last Updated 08/04/19 @ 09:14 by Kamryn Prince MD) Altered mental status (Acute) Brain edema (Acute) Subjective: Chief complaint: Follow-up after admission for encephalopathy, brain edema and suspected meningitis/encephalitis. Patient seen and examined. No acute events overnight. She is alert and oriented x3. She denies any complaints. She denies headache, vision change, numbness or tingling. She denied fever or chills. She denies neck pain. She denies abdominal pain, nausea or vomiting. Patient's daughter was at the bedside and she mentioned that her mother had flu vaccine in the last couple of weeks few days before her symptoms started. Her vital signs are stable, afebrile. - Physical Exam Vitals/I&O's: Vital Signs Temp Pulse Resp BP Pulse Ox 97.5 F L 60 16 146/76 H 96 08/04/19 08:04 08/04/19 08:12 08/04/19 08:12 08/04/19 08:04 08/04/19 08:12 Oxygen Delivery Method Room Air Weight: 105 lb 13.15 oz Body Mass Index (BMI) 18.7 Intake and Output for Last 24 Hours 08/02/19 08/03/19 08/04/19 23:59 23:59 23:59 Intake Total 430.00 / 430.00 1436.67 / 1436.67 Output Total 0 / 0 Balance 430.00 / 430.00 1436.67 / 1436.67 General: Alert, Oriented x3, Cooperative, No apparent distress HEENT: Atraumatic, PERRLA, EOMI, Normocephalic Oral: Moist Mucosa, No Gingival or Mucosal Lesions/ Ulcerations Neck: Supple, No JVD, Negative Carotid Bruits, No Nuchal Rigidity, Trachea Midline, Thyroid Normal Size and Texture Lungs: Clear to auscultation, Normal air movement, No rhonchi, No wheeze, No rales Cardiovascular: Regular rate, Regular Rhythm, Normal S1, Normal S2, PMI Normal Abdomen: Bowel Sounds Present, Soft, Non Tender, Non-Distended, No Hepato-splenomegaly Extremities: No clubbing, No cyanosis, No edema Skin: No rashes, No breakdown Lymphatic: No Cervical, Supraclavicular, or Inguinal Adenopathy Neurological: Cranial nerves II-XII grossly intact, Motor Exam 5/5 strength throughout Psych/Mental Status: Appropriate, Flat Affect, Alert and oriented to time, place, person, mood and affect Laboratory Results 08/03/19 16:10: WBC 2.3 L, RBC 4.07 L, Hgb 11.9 L, Hct 35.1 L, MCV 86.2, MCH 29.2, MCHC 33.9, RDW Std Deviation 43.2, RDW Coeff of Abhilash 14.0, Plt Count 162, MPV 10.6, Immature Gran % (Auto) 0.900, Neut % (Auto) 56.9, Lymph % (Auto) 23.1, [place] % (Auto) 17.8 H, Eos % (Auto) 0.9, Baso % (Auto) 0.4, Absolute Neuts (auto) 1.3 L, Absolute Lymphs (auto) 0.52 L, Nucleated RBC % 0, Differential Comment SCANNED, Diff Path Review February08/03/19 16:10: Sodium 143, Potassium 3.7, Chloride 108 H, Carbon Dioxide 30.0, Anion Gap 5, BUN 13, Creatinine 0.70, Estim Creat Clear Calc 37.82, Est GFR (MDRD) Af Amer 106, Est GFR (MDRD) Non-Af 87, BUN/Creatinine Ratio 18.7, Glucose 93, Calcium 9.0, Total Bilirubin 0.50, AST 17, ALT 15, Alkaline Phosphatase 69, Total Protein 6.6, Albumin 3.6, Globulin 3.0, Albumin/Globulin Ratio 1.2 08/03/19 16:10: Lactic Acid 0.7 08/03/19 16:45: Urine Color Yellow, Urine Clarity Clear, Urine pH 6.0, Ur Specific [place] 1.020, Urine Protein Negative, Urine Glucose (UA) Normal, Urine Ketones Negative, Urine Occult Blood 10 H, Urine Nitrite Negative, Urine Bilirubin Negative, Urine Urobilinogen Normal, Ur Leukocyte Esterase Negative, Urine RBC 0 SEEN, Urine WBC 0 SEEN, Ur Squamous Epith Cells 0 SEEN, Urine Bacteria 0 SEEN, Urine Mucus 1+ 08/04/19 04:55: WBC 2.7 L, RBC 4.16 L, Hgb 12.1, Hct 35.9 L, MCV 86.3, MCH 29.1, MCHC 33.7, RDW Std Deviation 42.8, RDW Coeff of Abhilash 13.8, Plt Count 146 L, MPV 10.1, Immature Gran % (Auto) 1.100 H, Neut % (Auto) 86.9 H, Lymph % (Auto) 5.6 L, [place] % (Auto) 6.0, Eos % (Auto) 0.0, Baso % (Auto) 0.4, Absolute Neuts (auto) 2.3, Absolute Lymphs (auto) 0.15 L, Nucleated RBC % 0, Differential Comment SCANNED, Diff Path Review February08/04/19 04:55: PT 14.7, INR 1.2 08/04/19 04:55: Sodium 143, Potassium 3.7, Chloride 108 H, Carbon Dioxide 29.0, Anion Gap 6, BUN 12, Creatinine 0.70, Estim Creat Clear Calc 37.40, Est GFR (MDRD) Af Amer 105, Est GFR (MDRD) Non-Af 87, BUN/Creatinine Ratio 17.1, Glucose 140 H, Calcium 8.8, TSH 0.54 Clinical Impression(s) from Imaging Studies Brain CT 08/03/19 19:27 IMPRESSION: No acute abnormality. No evidence for cerebral edema. Mild atrophy and White matter disease. Electronically Signed: Ricci Arango MD at 20:52 EDT , Service support , Current Medications Acetaminophen (Tylenol) 650 mg PO Q6H PRN PRN PRN Reason: Pain Score 1-3/Temp > 100.7 F Albuterol Sulfate (Ventolin Aerosols) 2.5 mg INHALATION Q2H PRN PRN PRN Reason: SOB/Wheezing Dexamethasone Sodium Phosphate (Decadron) 7 mg IV Q6 SHRUTHI Stop: 08/07/19 12:01 Last Admin: 08/04/19 06:03 Dose: 7 mg Documented by: Dextrose (D50w Syringe) 0 gm IV X1 PRN; Protocol PRN Reason: Hypoglycemia Glucagon () 1 mg IM .X1 PRN PRN Reason: Hypoglycemia Heparin Sodium (Beef Lung) () 50 units IV UD PRN PRN Reason: R Port Heparin Flush Acyclovir Sodium 500 mg/ (Dextrose) 260 mls @ 260 mls/hr IV Q12H SHRUTHI Last Infusion: 08/04/19 01:18 Dose: Infused Documented by: Ampicillin Sodium 2 gm/ Sodium (Chloride) 100 mls @ 200 mls/hr IV Q8 SHRUTHI Last Infusion: 08/04/19 06:33 Dose: Infused Documented by: Ceftriaxone Sodium 2 gm/ (Sodium Chloride) 50 mls @ 100 mls/hr IV Q12 SHRUTHI Last Infusion: 08/03/19 21:23 Dose: Infused Documented by: Vancomycin IV Pharmacy to Dose (1 ea/ Sodium Chloride) 500 mls @ 250 mls/hr IV X1 PRN; Protocol PRN Reason: Rx to Dose Vancomycin HCl 750 mg/ Sodium (Chloride) 265 mls @ 250 mls/hr IV Q24H SHRUTHI Sodium Chloride () 250 mls @ 15 mls/hr IV .[id number] PRN PRN Reason: Saline Flush Nutritional Formula (Lactose Free) (Ensure Enlive) 120 ml PO 4X/DAY SHRUTHI Ondansetron HCl (Zofran) 4 mg IV Q8H PRN PRN PRN Reason: NAUSEA/VOMITING Sodium Chloride () 10 - 40 ml IV UD PRN PRN Reason: R Port Saline Flush Last Admin: 08/04/19 06:05 Dose: 30 ml Documented by: Sodium Chloride (0.9% Nacl (Sterile) Posiflush) 10 - 40 ml IV UD PRN PRN Reason: Port access or dressing change Medical Necessity - Tobacco Use Smoking Status: Never smoker Assessment/Plan All Active Problems (Last Updated 08/04/19 @ 09:14 by Kamryn Prince MD) Altered mental status (Acute) Brain edema (Acute) This is a 74 years old female patient presented to the emergency room because of altered mental status and abnormal MRI that was done the day before admission and that MRI revealed mild brain edema within the bilateral putamen, posterior shai, medial thalami suggestive of mild toxic/metabolic encephalopathy and she was admitted for questionable meningitis and neutropenia. #1 acute encephalopathy/mild cerebral edema/suspected meningitis versus encephalitis: MRI brain reviewed, revealed mild edema within the bilateral putamen, posterior shai, medial thalami. Patient was started empirically on IV acyclovir, Unasyn, Rocephin and vancomycin for suspected meningitis. She is on IV Decadron as well. Lumbar puncture cannot be done because patient has been on Eliquis, last dose was yesterday morning. Patient has been afebrile. She has no neck stiffness. According to the patient's daughter, patient received flu vaccine several days before her symptoms started. CT scan brain done yesterday and showed no evidence of brain edema. Patient has no focal deficit on physical exam. Blood cultures pending. Infectious disease consulted. At this time, I doubt that patient has meningitis or encephalitis. Her symptoms could be due to side effects of the flu vaccine. Plan to continue empiric IV antibiotics, respiratory panel for viruses, awaiting ID recommendations. #2 leukopenia/neutropenia: Without fever. It is secondary to chemotherapy. On admission, absolute neutrophil count was 1300, today it is 2300, improved. WBC was 2300 and today, it is 2700. She has been afebrile. She is IV antibiotics as above. Plan to monitor. #3 grade 2 follicular lymphoma: Currently on chemotherapy, last session was 3 to 4 weeks ago. She has been following up with Dr. Berger. #4 history of DVT/PE: Eliquis held as patient may go for lumbar puncture. #5 history of hypothyroidism: Patient has been off levothyroxine, TSH was normal today. #6 DVT prophylaxis: SCDs. This note was generated with [employer] dictation software. It may contain incorrect words, spelling, and punctuation that were not noted in checking the note before signing. Code Visit Inpatient E&M: 15497 Subs Hosp L2
[2019-08-04 11:15] LABS: Pathologist Review Reviewed
[2019-08-04 11:15] LABS: Pathologist Review Reviewed
--- NOTE | 2019-08-04 12:07 | RAD_ITS ---
STUDY: X-RAY - PELVIS AND LEFT HIP REASON FOR EXAM: Female, 74 years old. Pain TECHNIQUE: 3 views of the pelvis and hip. COMPARISON: None. FINDINGS: No acute fracture or dislocation is identified of the pelvis or bilateral hips. There is moderate bilateral hip arthrosis. The sacroiliac joints are intact. Soft tissues are unremarkable. RAD/HIP, UNI W/ Pelvis 2-3 Views IMPRESSION: No acute fracture or dislocation at the pelvis or left hip. Electronically Signed: Christopher Newman, at 14:18 EDT Tel , Service support ,
--- NOTE | 2019-08-04 12:24 | PCM.HP.ID ---
Problem List (1) Altered mental status Status: Acute Reason for Consult: altered mental status Consulted by: Dr. Prince History of Present Illness: The patient is a 74 year old F with follicular lymphoma, on rituxan via port, presented to ED yesterday with 3 weeks of progressive altered mental status, lethargy, decreased interactivity. Family reports about 3 weeks ago she got a dose of rituxan, she got a flu shot, and she hurt her L leg/hip while working in the garden. She had significant pain in upper thigh, wasn't eating, has lost about 10 lbs in past 3 weeks. Had MRI done which showed possible toxic/metabolic encephalopathy, sent to ED. Denies any headache, denies any neck pain. No fever, no chills. No other focal symptoms. Pain in leg has resolved. In ED, started on acyclovir and decadron. Admitted on vanc/amp/ceftriaxone/iv acyclovir. Feeling a little better this morning. No issues with flu vaccine in the past. Full ROS performed and neg except as noted above. Did have brief episode of double vision in the past few weeks, now resolved. No recent travel, no sick contacts, no tick/bug bites. Denies any h/o shingles or cold sores. No rash or myalgias. - Medical History Past Medical History (Chronic Problems): Chronic Problems (Last Updated 08/04/19 @ 09:14 by Kamryn Prince MD) History of hyperthyroidism (Chronic) Hypertension (Chronic) Follicular lymphoma grade II (Chronic) DVT, bilateral lower limbs (Chronic) Pulmonary embolism (Chronic) Pleural effusion, bilateral (Chronic) Weight loss, non-intentional (Chronic) Pelvic mass in female (Chronic) IBS (irritable bowel syndrome) (Chronic) controlled with diet Allergies/Adverse Reactions: Allergies No Known Allergies Allergy (Verified 08/03/19 14:11) Home Medications: Ambulatory Orders Medication Instructions Recorded Apixaban [Eliquis] 5 mg PO BID #60 tab 09/23/18 - Social History Tobacco Use: non-smoker Vital Signs Temp Pulse Resp BP Pulse Ox 98.6 F 73 16 128/65 H 99 08/04/19 11:18 08/04/19 11:18 08/04/19 11:18 08/04/19 11:18 08/04/19 11:18 Oxygen Delivery Method Room Air Weight: 48 kg Body Mass Index (BMI) 18.7 Laboratory Tests Past 24 Hrs 08/03/19 08/03/19 08/03/19 16:10 16:10 16:10 WBC 2.3 L RBC 4.07 L Hgb 11.9 L Hct 35.1 L MCV 86.2 MCH 29.2 MCHC 33.9 RDW Std Deviation 43.2 RDW Coeff of Abhilash 14.0 Plt Count 162 MPV 10.6 Immature Gran % (Auto) 0.900 Neut % (Auto) 56.9 Lymph % (Auto) 23.1 [place] % (Auto) 17.8 H Eos % (Auto) 0.9 Baso % (Auto) 0.4 Absolute Neuts (auto) 1.3 L Absolute Lymphs (auto) 0.52 L Nucleated RBC % 0 Differential Comment SCANNED Diff Path Review Reviewed PT INR Sodium 143 Potassium 3.7 Chloride 108 H Carbon Dioxide 30.0 Anion Gap 5 BUN 13 Creatinine 0.70 Estim Creat Clear Calc 37.82 Est GFR (MDRD) Af Amer 106 Est GFR (MDRD) Non-Af 87 BUN/Creatinine Ratio 18.7 Glucose 93 Lactic Acid 0.7 Calcium 9.0 Total Bilirubin 0.50 AST 17 ALT 15 Alkaline Phosphatase 69 Total Protein 6.6 Albumin 3.6 Globulin 3.0 Albumin/Globulin Ratio 1.2 TSH Urine Color Urine Clarity Urine pH Ur Specific [place] Urine Protein Urine Glucose (UA) Urine Ketones Urine Occult Blood Urine Nitrite Urine Bilirubin Urine Urobilinogen Ur Leukocyte Esterase Urine RBC Urine WBC Ur Squamous Epith Cells Urine Bacteria Urine Mucus 08/03/19 08/04/19 08/04/19 16:45 04:55 04:55 WBC 2.7 L RBC 4.16 L Hgb 12.1 Hct 35.9 L MCV 86.3 MCH 29.1 MCHC 33.7 RDW Std Deviation 42.8 RDW Coeff of Abhilash 13.8 Plt Count 146 L MPV 10.1 Immature Gran % (Auto) 1.100 H Neut % (Auto) 86.9 H Lymph % (Auto) 5.6 L [place] % (Auto) 6.0 Eos % (Auto) 0.0 Baso % (Auto) 0.4 Absolute Neuts (auto) 2.3 Absolute Lymphs (auto) 0.15 L Nucleated RBC % 0 Differential Comment SCANNED Diff Path Review Reviewed PT 14.7 INR 1.2 Sodium Potassium Chloride Carbon Dioxide Anion Gap BUN Creatinine Estim Creat Clear Calc Est GFR (MDRD) Af Amer Est GFR (MDRD) Non-Af BUN/Creatinine Ratio Glucose Lactic Acid Calcium Total Bilirubin AST ALT Alkaline Phosphatase Total Protein Albumin Globulin Albumin/Globulin Ratio TSH Urine Color Yellow Urine Clarity Clear Urine pH 6.0 Ur Specific [place] 1.020 Urine Protein Negative Urine Glucose (UA) Normal Urine Ketones Negative Urine Occult Blood 10 H Urine Nitrite Negative Urine Bilirubin Negative Urine Urobilinogen Normal Ur Leukocyte Esterase Negative Urine RBC 0 SEEN Urine WBC 0 SEEN Ur Squamous Epith Cells 0 SEEN Urine Bacteria 0 SEEN Urine Mucus 1+ 08/04/19 04:55 WBC RBC Hgb Hct MCV MCH MCHC RDW Std Deviation RDW Coeff of Abhilash Plt Count MPV Immature Gran % (Auto) Neut % (Auto) Lymph % (Auto) [place] % (Auto) Eos % (Auto) Baso % (Auto) Absolute Neuts (auto) Absolute Lymphs (auto) Nucleated RBC % Differential Comment Diff Path Review PT INR Sodium 143 Potassium 3.7 Chloride 108 H Carbon Dioxide 29.0 Anion Gap 6 BUN 12 Creatinine 0.70 Estim Creat Clear Calc 37.40 Est GFR (MDRD) Af Amer 105 Est GFR (MDRD) Non-Af 87 BUN/Creatinine Ratio 17.1 Glucose 140 H Lactic Acid Calcium 8.8 Total Bilirubin AST ALT Alkaline Phosphatase Total Protein Albumin Globulin Albumin/Globulin Ratio TSH 0.54 Urine Color Urine Clarity Urine pH Ur Specific [place] Urine Protein Urine Glucose (UA) Urine Ketones Urine Occult Blood Urine Nitrite Urine Bilirubin Urine Urobilinogen Ur Leukocyte Esterase Urine RBC Urine WBC Ur Squamous Epith Cells Urine Bacteria Urine Mucus - Other Studies Radiology: [] reviewed Other Studies: [] Route of nutrition/ use of supplements: [] Nutritional Intake: [] IV Site: [] Ch Catheter: [] - Physical Exam General: Alert, Oriented x3, Cooperative, No apparent distress, - - answers questions appropriately but flat/withdrawn affect HEENT: Atraumatic, PERRLA, EOMI Neck: Supple, No Nodes Lungs: Clear to auscultation, Normal air movement Cardiovascular: Regular rate, Regular Rhythm Abdomen: Soft, Non Tender, Non-Distended Extremities: No edema Skin: No rashes IV Site: Central Line, without redness Musculoskeletal: No Tenderness to Palpation of Joints or Extremities - No pain in L hip with hip flexion Neurological: Cranial nerves II-XII grossly intact - Assessment/Plan Antibiotics: [] Assessment/Plan: [] Active and Suspected Problems (Last Updated 08/04/19 @ 09:14 by Kamryn Prince MD) Altered mental status (Acute) Brain edema (Acute) No evidence of meningitis. Low suspicion for encephalitis; no focal cranial nerve deficits, she is oriented x3, no fever, no headache. Seems most consistent with failure to thrive. May be related to cancer/recent chemo/flu shot/pain from what sounds like muscle strain leading to poor po intake, weight loss. Has improved somewhat per her family since admit, may be benefiting from IV fluids and steroids. Consider depression eval. Consider speech therapy eval. Will stop abx. Will check xray of pelvis. Resp viral pcr is pending. Port does not seem to have any issues. Will follow, thank you, d/w Dr. Prince.
--- NOTE | 2019-08-04 12:54 | NURSING ---
Read and reviewed SN documentation
--- NOTE | 2019-08-04 13:15 | NURSING ---
Read and reviewed SN documentation
--- NOTE | 2019-08-04 14:53 | CHAPLAIN ---
Type of Pastoral Visit _x__ Initial Visit ___ Follow-up Visit ___ On-call Visit ___ General Patient Visit ___ Spiritual Assessment ___ Family Conference ___ Bereavement ___ Rapid Response ___ Code Blue ___ Other (describe below) Pastoral Care Referral From _x__ Patient _x__ Family ___ Nurse ___ Physician ___ Cigar Brander ___ Cover Seamer ___ Other (describe below) Sacrament/Intervention _x__ Active listening ___ Anointing ___ Caodaism ___ Bereavement ___ Communion ___ [place] exploration ___ ___ Life review _x__ Prayer ___ Reconciliation ___ Sacrament of Sick _x__ Supportive presence ___ Wedding ___ Other (describe below) Pastoral Comments
--- NOTE | 2019-08-04 15:00 | CASEMGMT ---
RN KARLA DATA BASE DESIGN ANALYST CM to room to meet with patient for initial transition planning/care coordination assessment. AVE ACOSTA introduced self and role at [facility]. Pt voices understanding and consents to assessment at this time. Pt sitting up in recliner chair in room no distress at this time. Pt pleasant and would answer some questions briefly, but mostly with yes/no answers. Flat affect. Pt's and daughter, Shweta in room visiting and provided the following answers. Care providers, pharmacy, and demographics verified/updated at this time. PCP: Eric Specialists: Ab--oncology, Emerson--pulmonology Preferred Pharmacy: [facility] Retail Insurance: [facility] Primary. Also has Medishare supplemental which was not listed on pt's demographics sheet. Copy of card made and placed on pt's chart. Also sent copy of card to Registration to be placed on file. Medishare card given back to pt's . Prescription Benefit: No. states Medishare covers for pt's chemo and she gets Eliquis through [facility]. states has had an increase in income and is concerned they may no longer be eligible for [facility]. Discussed with and daughter that Open enrollment for Health insurance and prescription coverage is going on now. Daughter states they may contact an agent they know in [place] to discuss options with him. Living Will/HPOA: Does not have LW or HCPOA. LNOK: , Robbie. 2 daughters: Shweta and Sandra Living Arrangements: Lives with her in one-story home w/loft. states up until about 3 weeks ago, pt was independent with all ADL's and home mgmt tasks. He states she has gradually been declining since then and that he assists pt with all care now, including bathing/dressing, assisting her to get out of chair/walking, and all home mgmt tasks. Transportation: DME: Pt has a shower chair, rails/grab bars, hand-held shower. Ambulated independently up until about 3 weeks ago. Ambulated with walker today with therapy. Unknown at this time what DME may be needed at discharge. HHC/SNF: Hx of [facility] 09/2018. Unknown at this time what level of care will be needed when pt is medically ready for discharge. Follow PT/OT evals and pt's progress. and daughter state if SNF is recommended/needed @ discharge, TCU would be 1st choice. JACE Tate, made aware. CM to follow for any discharge planning/needs. Pt voices no further concerns/needs at this time. Advised pt to ask for CM if any further questions/concerns/needs arise. Voices understanding. PLAN: TBD. SNF vs Home w/possible HHC. CM to follow for any DME needs if returns home @ discharge. Vidhya POSADASN RN CM
[2019-08-04] MEDS: APIXABAN 5 MG TABLET PO (21:26)
[2019-08-05] VITALS (9 sets, daily range): BP systolic 146–157; BP diastolic 68–77; PULSE 47–72; RESP 16–18; TEMP 36.3–37.7; O2SAT 98–99
[2019-08-05] MEDS: 0.9% Saline Lock 10 ML Syringe IV (04:38)
[2019-08-05 04:51] LABS: Absolute Lymphocyte Count 0.49 X10^3/uL (0.83-4.51); Absolute Neutrophil Count 2.1 X10^3/uL (2.0-7.7); Basophil# 0.01 X10^3/uL; Basophil% 0.3 % (0-1); Eosinophil# 0.01 X10^3/uL; Eosinophils% 0.3 % (0-5); Hematocrit 33.5 % (37-47); Hemoglobin 11.3 g/dL (12.0-15.0); Lymphocyte # 0.49 X10^3/ul (4.0); Lymphocyte % 15.1 % (19-41); Mean Corp Hgb Conc 33.7 g/dL (32-36); Mean Corpuscular Hgb 29.2 pg (27.0-32.0); Mean Corpuscular Volume 86.6 fL (81-99); Mean Platelet Vol. 10.2 fl (6.2-12.0); Monocyte# 0.62 X10^3/uL; Monocyte% 19.1 % (0-10); NRBC Flagged by Analyzer 0 % (0-5); Neutrophil # 2.06 X10^3/uL (2.7-7.7); Neutrophil % 63.7 % (47-70); POSITIVE DIFFERENTIAL YES; POSITIVE MORPHOLOGY YES; Platelet Count 164 K/mm3 (150-450); RBC Distribution Width CV 14.2 % (11.6-14.6); RBC Distribution Width SD 43.9 fl (35.1-43.9); Red Blood Count 3.87 M/mm3 (4.2-5.4); White Blood Count 3.2 K/mm3 (4.4-11.0)
[2019-08-05 04:55] LABS: Differential Indicated SCAN CRITERIA MET
[2019-08-05 05:25] LABS: Differential Comment SCANNED
[2019-08-05] MEDS: APIXABAN 5 MG TABLET PO ×2 (09:23→21:15)
--- NOTE | 2019-08-05 10:29 | NURSING ---
Patient choked on breakfast and vomited per student RN. Made patient NPO per policy pending speech therapy evaluation. Patient expresses understanding.
--- NOTE | 2019-08-05 10:34 | PCM.PN.ID ---
Patient Problems: Active and Suspected Problems (Last Updated 08/04/19 @ 09:14 by Kamryn Prince MD) Altered mental status (Acute) Brain edema (Acute) Subjective: Feeling much better, mental status much improved per . No fever, eating breakfast. No pain. - Physical Exam Vitals/I&O's: Vital Signs Temp Pulse Resp BP Pulse Ox 97.6 F L 58 L 16 146/68 H 99 08/05/19 09:20 08/05/19 09:20 08/05/19 09:20 08/05/19 09:20 08/05/19 09:20 Oxygen Delivery Method Room Air Weight: 48 kg Body Mass Index (BMI) 18.7 Intake and Output for Last 24 Hours 08/03/19 08/04/19 08/05/19 23:59 23:59 23:59 Intake Total 430.00 / 430.00 1606.67 / 1606.67 0 / 0 Output Total 0 / 0 Balance 430.00 / 430.00 1606.67 / 1606.67 0 / 0 General: Alert, Cooperative, No apparent distress Lungs: Clear to auscultation, Normal air movement Cardiovascular: Regular rate, Regular Rhythm Abdomen: Soft, Non Tender, Non-Distended Skin: No rashes Microbiology Past 72 Hours 08/04/19 10:45 Mucosa - Nose Respiratory Panel (PCR) - Final Laboratory Results 08/03/19 16:10: Diff Path Review Reviewed 08/04/19 04:55: Diff Path Review Reviewed 08/05/19 04:45: WBC 3.2 L, RBC 3.87 L, Hgb 11.3 L, Hct 33.5 L, MCV 86.6, MCH 29.2, MCHC 33.7, RDW Std Deviation 43.9, RDW Coeff of Abhilash 14.2, Plt Count 164, MPV 10.2, Immature Gran % (Auto) 1.500 H, Neut % (Auto) 63.7, Lymph % (Auto) 15.1 L, [place] % (Auto) 19.1 H, Eos % (Auto) 0.3, Baso % (Auto) 0.3, Absolute Neuts (auto) 2.1, Absolute Lymphs (auto) 0.49 L, Nucleated RBC % 0, Differential Comment SCANNED, Diff Path Review May foll Current Medications Acetaminophen (Tylenol) 650 mg PO Q6H PRN PRN PRN Reason: Pain Score 1-3/Temp > 100.7 F Albuterol Sulfate (Ventolin Aerosols) 2.5 mg INHALATION Q2H PRN PRN PRN Reason: SOB/Wheezing Apixaban (Eliquis) 5 mg PO BID [facility] Last Admin: 08/05/19 09:23 Dose: 5 mg Documented by: Dextrose (D50w Syringe) 0 gm IV X1 PRN; Protocol PRN Reason: Hypoglycemia Glucagon () 1 mg IM .X1 PRN PRN Reason: Hypoglycemia Heparin Sodium (Beef Lung) () 50 units IV UD PRN PRN Reason: R Port Heparin Flush Sodium Chloride () 250 mls @ 15 mls/hr IV .[id number] PRN PRN Reason: Saline Flush Nutritional Formula (Lactose Free) (Ensure Enlive) 120 ml PO 4X/DAY [facility] Last Admin: 08/05/19 09:23 Dose: 120 ml Documented by: Ondansetron HCl (Zofran) 4 mg IV Q8H PRN PRN PRN Reason: NAUSEA/VOMITING Sodium Chloride () 10 - 40 ml IV UD PRN PRN Reason: R Port Saline Flush Last Admin: 08/05/19 04:38 Dose: 30 ml Documented by: Sodium Chloride (0.9% Nacl (Sterile) Posiflush) 10 - 40 ml IV UD PRN PRN Reason: Port access or dressing change Medical Necessity - Tobacco Use Smoking Status: Never smoker Route of nutrition/ use of supplements: [] Nutritional Intake: [] IV Site: [] Ch Catheter: [] - Assessment/Plan Antibiotics: [] Assessment/Plan: [] Active and Suspected Problems (Last Updated 08/04/19 @ 09:14 by Kamryn Prince MD) Altered mental status (Acute) Brain edema (Acute) No evidence of meningitis. Low suspicion for encephalitis; no focal cranial nerve deficits, she is oriented x3, no fever, no headache. Seems most consistent with failure to thrive. May be related to cancer/recent chemo/flu shot/pain from what sounds like muscle strain leading to poor po intake, weight loss. Has improved greatly per her family since admit, may be benefiting from IV fluids and steroids. Off abx since 08/04. Ok for d/c home from my perspective. Will follow, d/w case making machine operator.
--- NOTE | 2019-08-05 12:08 | PN_ITS ---
Patient Problems: Active and Suspected Problems (Last Updated 08/04/19 @ 09:14 by Kamryn Prince MD) Altered mental status (Acute) Brain edema (Acute) Subjective: Chief complaint: Follow-up after admission for encephalopathy, brain edema and suspected meningitis/encephalitis. Patient seen and examined. No acute events overnight. She remains asymptomatic, no complaints. She is alert and oriented x3. Her vital signs are stable. - Physical Exam Vitals/I&O's: Vital Signs Temp Pulse Resp BP Pulse Ox 97.6 F L 58 L 16 146/68 H 99 08/05/19 09:20 08/05/19 09:20 08/05/19 09:20 08/05/19 09:20 08/05/19 09:20 Oxygen Delivery Method Room Air Weight: 105 lb 13.15 oz Body Mass Index (BMI) 18.7 Intake and Output for Last 24 Hours 08/03/19 08/04/19 08/05/19 23:59 23:59 23:59 Intake Total 430.00 / 430.00 1606.67 / 1606.67 0 / 0 Output Total 0 / 0 Balance 430.00 / 430.00 1606.67 / 1606.67 0 / 0 General: Alert, Oriented x3, Cooperative, No apparent distress HEENT: Atraumatic, PERRLA, EOMI, Normocephalic Oral: Moist Mucosa, No Gingival or Mucosal Lesions/ Ulcerations Neck: Supple, No JVD, Negative Carotid Bruits, Trachea Midline, Thyroid Normal Size and Texture Lungs: Clear to auscultation, Normal air movement, No rhonchi, No wheeze, No rales, Diminished Abdomen: Bowel Sounds Present, Soft, Non Tender, Non-Distended, No Hepato- splenomegaly Extremities: No clubbing, No cyanosis, No edema Skin: No rashes, No breakdown Lymphatic: No Cervical, Supraclavicular, or Inguinal Adenopathy Neurological: Cranial nerves II-XII grossly intact, Neuro grossly intact, - - Global weakness. Psych/Mental Status: Normal Affect, Appropriate, Alert and oriented to time, place, person, mood and affect Microbiology Past 72 Hours 08/04/19 10:45 Mucosa - Nose Respiratory Panel (PCR) - Final Laboratory Results 08/05/19 04:45: WBC 3.2 L, RBC 3.87 L, Hgb 11.3 L, Hct 33.5 L, MCV 86.6, MCH 29.2, MCHC 33.7, RDW Std Deviation 43.9, RDW Coeff of Abhilash 14.2, Plt Count 164, MPV 10.2, Immature Gran % (Auto) 1.500 H, Neut % (Auto) 63.7, Lymph % (Auto) 15.1 L, [place] % (Auto) 19.1 H, Eos % (Auto) 0.3, Baso % (Auto) 0.3, Absolute Neuts (auto) 2.1, Absolute Lymphs (auto) 0.49 L, Nucleated RBC % 0, Differential Comment SCANNED, Diff Path Review May foll Current Medications Acetaminophen (Tylenol) 650 mg PO Q6H PRN PRN PRN Reason: Pain Score 1-3/Temp > 100.7 F Albuterol Sulfate (Ventolin Aerosols) 2.5 mg INHALATION Q2H PRN PRN PRN Reason: SOB/Wheezing Apixaban (Eliquis) 5 mg PO BID [facility] Last Admin: 08/05/19 09:23 Dose: 5 mg Documented by: Dextrose (D50w Syringe) 0 gm IV X1 PRN; Protocol PRN Reason: Hypoglycemia Glucagon () 1 mg IM .X1 PRN PRN Reason: Hypoglycemia Heparin Sodium (Beef Lung) () 50 units IV UD PRN PRN Reason: R Port Heparin Flush Sodium Chloride () 250 mls @ 15 mls/hr IV .[id number] PRN PRN Reason: Saline Flush Nutritional Formula (Lactose Free) (Ensure Enlive) 120 ml PO 4X/DAY [facility] Last Admin: 08/05/19 09:23 Dose: 120 ml Documented by: Ondansetron HCl (Zofran) 4 mg IV Q8H PRN PRN PRN Reason: NAUSEA/VOMITING Sodium Chloride () 10 - 40 ml IV UD PRN PRN Reason: R Port Saline Flush Last Admin: 08/05/19 04:38 Dose: 30 ml Documented by: Sodium Chloride (0.9% Nacl (Sterile) Posiflush) 10 - 40 ml IV UD PRN PRN Reason: Port access or dressing change Medical Necessity - Tobacco Use Smoking Status: Never smoker Assessment/Plan All Active Problems (Last Updated 08/04/19 @ 09:14 by Kamryn Prince MD) Altered mental status (Acute) Brain edema (Acute) This is a 74 years old female patient presented to the emergency room because of altered mental status and abnormal MRI that was done the day before admission and that MRI revealed mild brain edema within the bilateral putamen, posterior shai, medial thalami suggestive of mild toxic/metabolic encephalopathy and she was admitted for questionable meningitis and neutropenia. #1 acute encephalopathy/mild cerebral edema/suspected meningitis versus encephalitis: Meningitis and encephalitis ruled out. IV antibiotics discontinued as well as IV steroids. Patient has been afebrile. MRI brain reviewed, revealed mild edema within the bilateral putamen, posterior shai, medial thalami. There was no indication for lumbar puncture. Her symptoms could be due to recent flu vaccine. Infectious disease on the case and discontinued IV antibiotics. After discussion with oncology, recommended neurology consultation. Neurology consulted, awaiting their recommendations. #2 leukopenia/neutropenia: Without fever. On admission, absolute neutrophil count was 1300, today it is 2300, improved. She remained afebrile. WBC and ANC are improving. #3 grade 2 follicular lymphoma: According to her oncologist, patient has been off chemotherapy since Feb, 2019. She has been on immunotherapy.. She has been following up with Dr. Berger. #4 history of DVT/PE: Continue Eliquis. #5 history of hypothyroidism: Patient has been off levothyroxine, TSH was normal today. #6 DVT prophylaxis: SCDs. This note was generated with Solicoreation software. It may contain incorrect words, spelling, and punctuation that were not noted in checking the note before signing. Code Visit Inpatient E&M: 14185 Subs Hosp L2
--- NOTE | 2019-08-05 13:35 | CON.PCM_ITS ---
Reason for Consult Date of Consultation: 08/05/19 Reason for Consultation: encephalopathy on MRI History of Present Illness: The patient is a 74 year old F with PMH of follicular lymphona (last chemo 02/2019), HX of PE and DVT (RLE), Neutropenia, IBS, hyperthyroidism presented to [facility] ER on 08/03/19, directed by Dr. Berger due to MRI on 08/02/19 showed Mild edema within the bilateral putamen, posterior shai, medial thalami, and small foci in the right anterior temporal lobe and right inferior frontal gyrus. Suggestive of a mild toxic/metabolic encephalopathy. Patient had confusion, fatigue and lethargy for about 3 weeks and per spouse patient received flu vaccination a couple days prior to symptoms. On 08/03/19, CT of brain showed No acute abnormality. No evidence for cerebral edema. Mild atrophy and White matter disease. Respiratory panel negative findings. Blood Cx pending, UA showed Urine occult Blood 10 and mucus 1+. Patient was started on IV Decadron, acyclovir, ceftriaxone, vancomycin and ampicillin for suspected meningitis and to cover listeria. Currently on eliquis for Hx of PE and RLE DVT. Dr. Salgado ID was consulted, IV antibiotics, decadron were d/c on 08/04/19, and felt to be related to failure to thrive and cancer, chemo, influenza vaccine and pain. Per spouse and patient, cognition is back to baseline, afebrile, denies BEST, vision changes, speech disturbances, dizziness/lightheadedness, N/T or neck stiffness. A/O x3. Patient lives with spouse in a one level house, prior to admission independent with ADLS, mobility and driving. Past Medical History Past Medical History (Chronic Problems): Chronic Problems (Last Updated 08/04/19 @ 09:14 by Kamryn Prince MD) History of hyperthyroidism (Chronic) Hypertension (Chronic) Follicular lymphoma grade II (Chronic) DVT, bilateral lower limbs (Chronic) Pulmonary embolism (Chronic) Pleural effusion, bilateral (Chronic) Weight loss, non-intentional (Chronic) Pelvic mass in female (Chronic) IBS (irritable bowel syndrome) (Chronic) controlled with diet Medical History: Medical History (Last Updated 08/04/19 @ 09:14 by Kamryn Prince MD) Follicular lymphoma grade II (Chronic) C82.10 DVT, bilateral lower limbs (Chronic) I82.403 Pulmonary embolism (Chronic) I26.99 Pleural effusion, bilateral (Chronic) J90 Weight loss, non-intentional (Chronic) R63.4 Pelvic mass in female (Chronic) R19.00 IBS (irritable bowel syndrome) (Chronic) K58.9 controlled with diet Allergies No Known Allergies Allergy (Verified 08/03/19 14:11) Home Medications: Ambulatory Orders Medication Instructions Recorded Apixaban [Eliquis] 5 mg PO BID #60 tab 09/23/18 Surgical History: Surgical History (Last Reviewed 08/03/19 @ 19:29 by Anastacio Asher DO) History of lumpectomy Z98.890 breast lump, 1990s, benign History of thoracentesis Z98.890 [facility] 09/01/18 axilla biopsy Onset Date: ~09/18/18 s/p port placement Onset Date: ~09/18/18 Surgical History: - - Lumpectomy, Thoracentesis, port placement, right inguinal excisional lymph node biopsy. Psychiatric History: No pertinent psych hx RN IMAGING History: No pertinent RN IMAGING history Lives: Spouse/ Significant Other Smoking Status: Never smoker Alcohol: None Drugs: None - *Family History Maternal Family History: Family History (Last Reviewed 08/03/19 @ 19:29 by Anastacio Asher DO) Mother Hypertension Cancer Diabetes Father Diabetes Kidney disease Hypertension Hyperlipemia Sister Breast cancer History Items: Cancer - Cervical., Diabetes Paternal Family History: Family History (Last Reviewed 08/03/19 @ 19:29 by Anastacio Asher DO) Mother Hypertension Cancer Diabetes Father Diabetes Kidney disease Hypertension Hyperlipemia Sister Breast cancer History Items: Cancer - Skin., Heart Disease Review of Systems Constitutional: Denies: Chills, Fever, Weight Change Eyes: Denies: Blurred vision, Double vision, Vision Change HEENT: Denies: Difficulty Swallowing, Dysphasia, Visual Changes Cardiovascular: Denies: Chest Pain, Chest Pressure, Chest Tightness Respiratory: Denies: Cough, Shortness of breath at rest, Sputum production Gastrointestinal: Denies: Abdominal Pain, Nausea, Vomiting Genitourinary: Denies: Dysuria Musculoskeletal: Denies: Joint Pain, Joint Tenderness Skin: Denies: Rash, Wounds Neurological: Denies: Blurred vision, Double vision, Change in Speech, Difficulty swallowing, Focal weakness, Numbness, Tingling Psychiatric: Denies: Anxiety, Depression, Homicidal Ideations, Suicidal Ideations Hematologic/ Lymphatic: Reports: Easy Bruising, Easy Bleeding Patient Problems: Active and Suspected Problems (Last Updated 08/04/19 @ 09:14 by Kamryn Prince MD) Altered mental status (Acute) Brain edema (Acute) - Physical Exam Vitals/I&O's: Vital Signs Temp Pulse Resp BP Pulse Ox 97.6 F L 58 L 16 146/68 H 99 08/05/19 09:20 08/05/19 09:20 08/05/19 09:20 08/05/19 09:20 08/05/19 09:20 Oxygen Delivery Method Room Air Weight: 48 kg Body Mass Index (BMI) 18.7 Intake and Output for Last 24 Hours 08/03/19 08/04/19 08/05/19 23:59 23:59 23:59 Intake Total 430.00 / 430.00 1606.67 / 1606.67 240 / 240 Output Total 0 / 0 Balance 430.00 / 430.00 1606.67 / 1606.67 240 / 240 General: Alert, Oriented x3, Cooperative HEENT: Atraumatic, PERRLA, EOMI Oral: Moist Mucosa Neck: Supple, No JVD Lungs: Clear to auscultation, Normal air movement Cardiovascular: Regular rate, Regular Rhythm Abdomen: Bowel Sounds Present, Soft, Non Tender Extremities: No clubbing, No cyanosis, No edema Neurological: Cranial nerves II-XII grossly intact, Deep Tendon Reflexes 2+/4 and Symmetrical, Motor Exam 5/5 strength throughout Psych/Mental Status: Normal Affect, Appropriate, Alert and oriented to time, place, person, mood and affect Microbiology Past 72 Hours 08/04/19 10:45 Mucosa - Nose Respiratory Panel (PCR) - Final Laboratory Results 08/05/19 04:45: WBC 3.2 L, RBC 3.87 L, Hgb 11.3 L, Hct 33.5 L, MCV 86.6, MCH 29.2, MCHC 33.7, RDW Std Deviation 43.9, RDW Coeff of Abhilash 14.2, Plt Count 164, MPV 10.2, Immature Gran % (Auto) 1.500 H, Neut % (Auto) 63.7, Lymph % (Auto) 15.1 L, [place] % (Auto) 19.1 H, Eos % (Auto) 0.3, Baso % (Auto) 0.3, Absolute Neuts (auto) 2.1, Absolute Lymphs (auto) 0.49 L, Nucleated RBC % 0, Differential Comment SCANNED, Diff Path Review May foll Current Medications Acetaminophen (Tylenol) 650 mg PO Q6H PRN PRN PRN Reason: Pain Score 1-3/Temp > 100.7 F Albuterol Sulfate (Ventolin Aerosols) 2.5 mg INHALATION Q2H PRN PRN PRN Reason: SOB/Wheezing Apixaban (Eliquis) 5 mg PO BID [facility] Last Admin: 08/05/19 09:23 Dose: 5 mg Documented by: Dextrose (D50w Syringe) 0 gm IV X1 PRN; Protocol PRN Reason: Hypoglycemia Glucagon () 1 mg IM .X1 PRN PRN Reason: Hypoglycemia Heparin Sodium (Beef Lung) () 50 units IV UD PRN PRN Reason: R Port Heparin Flush Sodium Chloride () 250 mls @ 15 mls/hr IV .[id number] PRN PRN Reason: Saline Flush Nutritional Formula (Lactose Free) (Ensure Enlive) 120 ml PO 4X/DAY [facility] Last Admin: 08/05/19 13:12 Dose: 120 ml Documented by: Ondansetron HCl (Zofran) 4 mg IV Q8H PRN PRN PRN Reason: NAUSEA/VOMITING Sodium Chloride () 10 - 40 ml IV UD PRN PRN Reason: R Port Saline Flush Last Admin: 08/05/19 04:38 Dose: 30 ml Documented by: Sodium Chloride (0.9% Nacl (Sterile) Posiflush) 10 - 40 ml IV UD PRN PRN Reason: Port access or dressing change Assessment/Plan All Active Problems (Last Updated 08/04/19 @ 09:14 by Kamryn Prince MD) Altered mental status (Acute) Brain edema (Acute) The patient is a 74 year old F with PMH of follicular lymphoma (last chemo 02/2019), HX of PE and DVT (RLE), Neutropenia, IBS, hyperthyroidism presented to [facility] ER on 08/03/19, directed by Dr. Berger due to MRI on 08/02/19 showed Mild edema within the bilateral putamen, posterior shai, medial thalami, and small foci in the right anterior temporal lobe and right inferior frontal gyrus. Suggestive of a mild toxic/metabolic encephalopathy. Patient had confusion, fatigue and lethargy for about 3 weeks and per spouse patient received flu vaccination a couple days prior to symptoms. On 08/03/19, CT of brain showed No acute abnormality. No evidence for cerebral edema. Mild atrophy and White matter disease. Respiratory panel negative findings. Blood Cx pending, UA showed Urine occult Blood 10 and mucus 1+. Patient was started on IV Decadron, acyclovir, ceftriaxone, vancomycin and ampicillin for suspected meningitis and to cover listeria. Currently on eliquis for Hx of PE and RLE DVT. Dr. Salgado ID was consulted, IV antibiotics, decadron were d/c on 08/04/19, and felt to be related to failure to thrive and cancer, chemo, influenza vaccine and pain. Per spouse and patient, cognition is back to baseline, afebrile, denies BEST, vision changes, speech disturbances, dizziness/lightheadedness, N/T or neck stiffness. A/O x3. Patient lives with spouse in a one level house, prior to admission independent with ADLS, mobility and driving. Plan Back to baseline, no evidence of neurological injury f/u with hematology. Discussed findings with Dr. Pedro.
[2019-08-05 13:45] LABS: Pathologist Review Reviewed
--- NOTE | 2019-08-05 14:04 | CHAPLAIN ---
Type of Pastoral Visit ___ Initial Visit _x__ Follow-up Visit ___ On-call Visit ___ General Patient Visit ___ Spiritual Assessment ___ Family Conference ___ Bereavement ___ Rapid Response ___ Code Blue ___ Other (describe below) Pastoral Care Referral From _x__ Patient ___ Family ___ Nurse ___ Physician ___ Marketing Support Specialist ___ Horseback Riding Instructor ___ Other (describe below) Sacrament/Intervention _x__ Active listening ___ Anointing ___ Orthodoxy ___ Bereavement ___ Communion ___ [place] exploration ___ ___ Life review _x__ Prayer ___ Reconciliation ___ Sacrament of Sick ___ Supportive presence ___ Wedding ___ Other (describe below) Pastoral Comments
[2019-08-06 02:20] VITALS: BP 138/75; PULSE 64; RESP 16; TEMP 37.7; O2SAT 99
[2019-08-06 03:00] VITALS: PULSE 53
[2019-08-06 05:30] VITALS: BP 148/70; PULSE 71; RESP 18; TEMP 37.7; O2SAT 98
[2019-08-06 07:26] VITALS: PULSE 60
[2019-08-06 08:23] VITALS: BP 144/69; PULSE 58; RESP 18; TEMP 36.8; O2SAT 99
[2019-08-06] MEDS: APIXABAN 5 MG TABLET PO (08:35)
--- NOTE | 2019-08-06 09:47 | DCINST_ITS ---
- Discharge Diagnoses Current Active Problems: Current Active and Chronic Problems (Last Updated 08/04/19 @ 09:14 by Kamryn Prince MD) Altered mental status (Acute) Brain edema (Acute) You will use the following diet at home:: Regular Your food should be the consistency of: Regular Discharge Activity: Return to Normal Activity Weight Bearing Status: Weight bearing as tolerated Call your doctor if you observe: Fever of 101 or Higher, Shortness of breath, Dizziness, Fainting spells, Chest pain, Increased palpitations (irregular heartbeat), Uncontrolled pain Allergies/Adverse Reactions: Allergies No Known Allergies Allergy (Verified 08/03/19 14:11) Medications to take at Discharge Apixaban [Eliquis] 5 mg PO BID #60 tab 09/23/18 Primary Care Physician: Mikey Diamond MD [STAFF PHYSICIAN] - Please follow up with your Primary Care Physician in: 1 WEEK. Test Results: Test results from this visit will be discussed in further detail at your follow- up appointment, if applicable. Please Follow Up With: Jacob Reyes Chi, MD Please Follow Up With: Juani Berger MD When: 2 WEEKS.
--- NOTE | 2019-08-06 10:24 | PHA.DC.MR ---
Pharmacy Service has performed discharge medication reconciliation for this patient. No new medications at time of discharge, medications reviewed are previously reported home medications. The patient's discharge medication list was reviewed for discrepancies and discrepancies were resolved. Home Medications Apixaban [Eliquis] 5 mg PO BID #60 tab 09/23/18
--- NOTE | 2019-08-06 10:52 | CASEMGMT ---
Therapy is recommending additional skilled therapy for pt at this time. This RN CM to room to speak with pt regarding same and pt declines any further therapy at this time. Pt states no concerns with going home at time of discharge and voices no further questions/concerns/needs at this time. Male family member at bedside agrees with pt at this time. Pt awaiting dispo. Kaylynn DORADO CM
--- NOTE | 2019-08-06 11:02 | MRI_ITS ---
We are attempting to reach an attending provider to discuss findings. An addendum with communication details will be sent when the communication is complete. STUDY: MRI BRAIN WITH AND WITHOUT CONTRAST REASON FOR EXAM: Female, 74 years old. Weakness. Forgetfulness. History of lymphoma. TECHNIQUE: Standardized multiplanar fat and water weighted pulse sequences were obtained. IV Dotarem 10 was administered for the contrast portion of the examination. COMPARISON: August 02, 2019. FINDINGS: Normal size of the ventricles and extra-axial spaces for the patient's age. There is mild periventricular T2 signal hyperintensity. There is T2 signal hyperintensity of the bilateral globus pallidus and putamen of the basal ganglia, series 6 images 13/25 and 14/25. There is T2 signal hyperintensity of the posterior aspect of the shai and periaqueductal region, series 6 images 9/25 and 10/25 . There is no evidence for recent intracranial ischemia or other cause of cytotoxic edema on diffusion weighted imaging (DWI). Normal bilateral basal ganglia. Normal thalami. There is no extra-axial fluid accumulation. Normal flow voids within the major intracranial circulation suggesting patency by spin echo criteria. Normal venous enhancement. There is no enhancing intra-axial or extra-axial abnormality. Normal sella turcica, pituitary gland, infundibular stalk, optic chiasm and hypothalamus. Normal tectal plate and pineal gland. Normal cerebellum. Normal basal cisterns. Normal bilateral temporal bones. Normal bilateral internal auditory canals. No demonstrated orbital abnormality, within the constraints of a routine brain study. Normal visualized paranasal sinuses. Normal calvarium and skull base. Normal visualized soft tissue structures. Normal visualized upper cervical spine. MRI/Brain W/WO Contrast IMPRESSION: Abnormalities of the basal ganglia and white matter and posterior shai. Toxic encephalopathy or Wernicke encephalopathy are leading considerations. No acute infarct. No hemorrhage. Electronically Signed: Hal Pitts MD at 12:49 EDT , Service support ,
--- NOTE | 2019-08-06 11:41 | PN.NEURO_ITS ---
Patient Problems: Active and Suspected Problems (Last Updated 08/04/19 @ 09:14 by Kamryn Prince MD) Altered mental status (Acute) Brain edema (Acute) Subjective: NO issues overnight. Care discussed with nursing staff and hospitalist team. - Physical Exam Vitals/I&O's: Vital Signs Temp Pulse Resp BP Pulse Ox 98.2 F 58 L 18 144/69 H 99 08/06/19 08:23 08/06/19 08:23 08/06/19 08:23 08/06/19 08:23 08/06/19 08:23 Oxygen Delivery Method Room Air Weight: 48 kg Body Mass Index (BMI) 18.7 Intake and Output for Last 24 Hours 08/04/19 08/05/19 08/06/19 23:59 23:59 23:59 Intake Total 1606.67 / 1606.67 600 / 600 60 / 60 Balance 1606.67 / 1606.67 600 / 600 60 / 60 General: Alert HEENT: Normocephalic Neck: Supple Lungs: Normal air movement Cardiovascular: Normal S1, Normal S2 Abdomen: Bowel Sounds Present Extremities: No cyanosis Neurological: - - Conscious, alert, AOA x3, CN II through XII grossly intact, power 5 x 5 both upper and lower extremity's, no sensory loss, no cerebellar signs, gait deferred, Reflexes + B/L B/S/T/K/A, No NR Psych/Mental Status: Normal Affect Microbiology Past 72 Hours 08/04/19 10:45 Mucosa - Nose Respiratory Panel (PCR) - Final Laboratory Results 08/05/19 04:45: Diff Path Review Reviewed Current Medications Acetaminophen (Tylenol) 650 mg PO Q6H PRN PRN PRN Reason: Pain Score 1-3/Temp > 100.7 F Albuterol Sulfate (Ventolin Aerosols) 2.5 mg INHALATION Q2H PRN PRN PRN Reason: SOB/Wheezing Apixaban (Eliquis) 5 mg PO BID SHRUTHI Last Admin: 08/06/19 08:35 Dose: 5 mg Documented by: Dextrose (D50w Syringe) 0 gm IV X1 PRN; Protocol PRN Reason: Hypoglycemia Glucagon () 1 mg IM .X1 PRN PRN Reason: Hypoglycemia Heparin Sodium (Beef Lung) () 50 units IV UD PRN PRN Reason: R Port Heparin Flush Sodium Chloride () 250 mls @ 15 mls/hr IV .[id number] PRN PRN Reason: Saline Flush Nutritional Formula (Lactose Free) (Ensure Enlive) 120 ml PO 4X/DAY SHRUTHI Last Admin: 08/06/19 08:35 Dose: 120 ml Documented by: Ondansetron HCl (Zofran) 4 mg IV Q8H PRN PRN PRN Reason: NAUSEA/VOMITING Sodium Chloride () 10 - 40 ml IV UD PRN PRN Reason: R Port Saline Flush Last Admin: 08/05/19 04:38 Dose: 30 ml Documented by: Sodium Chloride (0.9% Nacl (Sterile) Posiflush) 10 - 40 ml IV UD PRN PRN Reason: Port access or dressing change STROKE Vital Signs/Narrative: Vital Signs Temp Pulse Resp BP Pulse Ox 08/06/19 08:23 98.2 F 58 L 18 144/69 H 99 Medical Necessity - Tobacco Use Smoking Status: Never smoker Assessment/Plan All Active Problems (Last Updated 08/04/19 @ 09:14 by Kamryn Prince MD) Altered mental status (Acute) Brain edema (Acute) 74-year-old female with PMH follicular lymphoma (last chemo 02/2019), HX of PE and DVT (RLE), Neutropenia, IBS, hyperthyroidism presented to [facility] ER on 08/03/19, directed by Dr. Berger due to abnormal MRI. MRI brain w/w/o done on 08/02/19 reported to showed Mild edema within the bilateral putamen, posterior shai, medial thalami, and small foci in the right anterior temporal lobe and right inferior frontal gyrus. Suggestive of a mild toxic/metabolic encephalopathy. Progressive multifocal leukoencephalopathy while possible is not likely given the complete lack of mass effect and the symmetric bilateral involvement of the putamen and thalami; this distribution is more compatible with a toxic/metabolic encephalopathy. Patient had confusion, fatigue and lethargy for about 3 weeks and per spouse nurys ye received flu vaccination a couple days prior to symptoms. On 08/03/19, CT of brain showed No acute abnormality. No evidence for cerebral edema. Mild atrophy and White matter disease. Respiratory panel negative findings. Blood Cx pending, UA showed Urine occult Blood 10 and mucus 1+. Patient was started on IV Decadron, acyclovir, ceftriaxone, vancomycin and ampicillin for suspected meningitis and to cover listeria. Currently on eliquis for Hx of PE and RLE DVT. Dr. Smith ID was consulted, IV antibiotics, decadron were d/c on 08/04/19, and per ID felt to be related to failure to thrive and cancer, chemo, influenza vaccine and pain. Per spouse and patient, cognition is back to baseline, afebrile, denies BEST, vision changes, speech disturbances, dizziness/lightheadedness, N/T or neck stiffness. A/O x3. Plan -Repeat MRI brain w/w/o contrast -At present patient does not want to have LP done. Discussed PML risks as patient is on Rituxan and patient understands the same -If patient does not want to proceed with LP then needs serial MRI brain imaging for monitoring of progression, would repeat MRI brain w/w/o following discharge in about 1 month -Further cancer management per Oncology -GI/DVT prophylaxis. On Eliquis for DVT/PE -Further medical management per hospitalist team -Follow up with Neurology as outpatient in 2-3 weeks -Please call with questions if any -Thank you for allowing us to participate in patient's care and management Code Visit Inpatient E&M: [id number] Init Hosp L3
--- NOTE | 2019-08-06 12:05 | DS.PCM_ITS ---
Discharge Date and Diagnosis - Problem List Patient Problems: Active and Suspected Problems (Last Updated 08/04/19 @ 09:14 by Kamryn Prince MD) Altered mental status (Acute) Brain edema (Acute) Date of Admission: 08/03/19 Date of Discharge: 08/06/19 - Primary Discharge Diagnosis Active and Suspected Problems (Last Updated 08/04/19 @ 09:14 by Kamryn Prince MD) #1 acute toxic/irritable encephalopathy. #2 mild cerebral edema. #3 leukopenia/neutropenia without fever. - Secondary Discharge Diagnosis Chronic Problems (Last Updated 08/04/19 @ 09:14 by Kamryn Prince MD) History of hyperthyroidism (Chronic) Hypertension (Chronic) Follicular lymphoma grade II (Chronic) DVT, bilateral lower limbs (Chronic) Pulmonary embolism (Chronic) Pleural effusion, bilateral (Chronic) Weight loss, non-intentional (Chronic) Pelvic mass in female (Chronic) IBS (irritable bowel syndrome) (Chronic) controlled with diet Hospital Course and Treatment Imaging Results: 08/06/19 11:02 MRI Brain [Brain W/WO Contrast] [MRI] Urgent Clinical Impression(s) from Imaging Studies Brain CT 08/03/19 19:27 IMPRESSION: No acute abnormality. No evidence for cerebral edema. Mild atrophy and White matter disease. Electronically Signed: Ricci Arango MD at 20:52 EDT , Service support , Hip/Pelvis X-Ray 08/04/19 12:07 IMPRESSION: No acute fracture or dislocation at the pelvis or left hip. Electronically Signed: Christopher Newman, at 14:18 EDT Tel , Service support , Brain MRI 08/06/19 11:02 IMPRESSION: Abnormalities of the basal ganglia and white matter and posterior shai. Toxic encephalopathy or Wernicke encephalopathy are leading considerations. No acute infarct. No hemorrhage. Electronically Signed: Hal Pitts MD at 12:49 EDT , Service support , Dr. Coleman, neurology. Operations: None Procedures: None Summary of Care Provided: Patient seen and examined on day of discharge and appeared to be stable to be discharged home. She remained stable, no complaints. She developed one spike of low-grade fever overnight of 100 Fahrenheit and she has been afebrile since then. She denies any new symptoms. Her other vitals are stable. The patient is a 74 year old F patient presented to the emergency room because of altered mental status and she was found to have abnormal MRI that was done the day before admission on August 02, 2019 which revealed mild brain edema within the bilateral putamen, posterior shai, medial thalami suggestive of mild toxic/metabolic encephalopathy. Patient was found to be leukopenic and neutropenic upon admission. Her absolute neutrophil count on admission was 1300. This raised the concern of acute meningitis versus encephalitis. Patient was started on IV antibiotics including IV acyclovir, IV Rocephin, ampicillin and vancomycin which was started empirically. Patient was on Eliquis and lumbar puncture was not done because patient took last dose the day before admission. After admission, patient remained alert and related x3 but she complained of generalized weakness. She remained afebrile. Her vital signs are stable. Infectious disease consulted. There was no strong evidence of meningitis or encephalitis. Antibiotic discontinued. Her WBC and absolute neutrophil count improved and her absolute neutrophil count went back to normal. Night before discharge, patient developed a low-grade fever x1 of 100 Fahrenheit. After admission, CT scan brain done and showed no cerebral edema. Neurology recommended to repeat MRI brain which was done on the day of discharge and revealed findings consistent with toxic encephalopathy without evidence of acute infarct or hemorrhage and there was some improvement of the brain edema. Patient remained stable. Patient discharged home in a stable medical condition, continued on Eliquis, no other medications were prescribed, plan to follow-up with oncology as outpatient in 2 weeks, follow-up with PCP in 1 week and follow- up with neurology in 2 to 4 weeks. Patient Problems: Active and Suspected Problems (Last Updated 08/04/19 @ 09:14 by Kamryn Prince MD) Altered mental status (Acute) Brain edema (Acute) - Physical Exam Vitals/I&O's: Vital Signs Temp Pulse Resp BP Pulse Ox 98.2 F 58 L 18 144/69 H 99 08/06/19 08:23 11/01/19 08:23 08/06/19 08:23 08/06/19 08:23 08/06/19 08:23 Oxygen Delivery Method Room Air Weight: 105 lb 13.15 oz Body Mass Index (BMI) 18.7 Intake and Output for Last 24 Hours 08/04/19 08/05/19 08/06/19 23:59 23:59 23:59 Intake Total 1606.67 / 1606.67 600 / 600 60 / 60 Balance 1606.67 / 1606.67 600 / 600 60 / 60 General: Alert, Oriented x3, Cooperative, No apparent distress HEENT: Atraumatic, PERRLA, EOMI, Normocephalic Oral: Moist Mucosa, No Gingival or Mucosal Lesions/ Ulcerations Neck: Supple, No JVD, Negative Carotid Bruits, Trachea Midline, Thyroid Normal Size and Texture Lungs: Clear to auscultation, Normal air movement, No rhonchi, No wheeze, No rales Cardiovascular: Regular rate, Regular Rhythm, Normal S1, Normal S2, PMI Normal Abdomen: Bowel Sounds Present, Soft, Non Tender, Non-Distended, No Hepato- splenomegaly Extremities: No clubbing, No cyanosis, No edema Skin: No rashes, No breakdown Lymphatic: No Cervical, Supraclavicular, or Inguinal Adenopathy Neurological: Cranial nerves II-XII grossly intact, Motor Exam 5/5 strength throughout Psych/Mental Status: Normal Affect, Appropriate, Alert and oriented to time, place, person, mood and affect Microbiology Past 72 Hours 08/03/19 17:00 Blood Culture (Wb) - Anticubital Right Blood Culture - Preliminary No growth in 48 hours. 08/03/19 16:10 Blood Culture (Wb) - Port Blood Culture - Preliminary No growth in 48 hours. 08/04/19 10:45 Mucosa - Nose Respiratory Panel (PCR) - Final Laboratory Results 08/05/19 04:45: Diff Path Review Reviewed Current Medications Acetaminophen (Tylenol) 650 mg PO Q6H PRN PRN PRN Reason: Pain Score 1-3/Temp > 100.7 F Albuterol Sulfate (Ventolin Aerosols) 2.5 mg INHALATION Q2H PRN PRN PRN Reason: SOB/Wheezing Apixaban (Eliquis) 5 mg PO BID SHRUTHI Last Admin: 08/06/19 08:35 Dose: 5 mg Documented by: Dextrose (D50w Syringe) 0 gm IV X1 PRN; Protocol PRN Reason: Hypoglycemia Glucagon () 1 mg IM .X1 PRN PRN Reason: Hypoglycemia Heparin Sodium (Beef Lung) () 50 units IV UD PRN PRN Reason: R Port Heparin Flush Sodium Chloride () 250 mls @ 15 mls/hr IV .[id number] PRN PRN Reason: Saline Flush Nutritional Formula (Lactose Free) (Ensure Enlive) 120 ml PO 4X/DAY SHRUTHI Last Admin: 08/06/19 08:35 Dose: 120 ml Documented by: Ondansetron HCl (Zofran) 4 mg IV Q8H PRN PRN PRN Reason: NAUSEA/VOMITING Sodium Chloride () 10 - 40 ml IV UD PRN PRN Reason: R Port Saline Flush Last Admin: 08/05/19 04:38 Dose: 30 ml Documented by: Sodium Chloride (0.9% Nacl (Sterile) Posiflush) 10 - 40 ml IV UD PRN PRN Reason: Port access or dressing change Discharge Activity: Return to Normal Activity Weight Bearing Status: Weight bearing as tolerated Call your doctor if you observe: Fever of 101 or Higher, Shortness of breath, Dizziness, Fainting spells, Chest pain, Increased palpitations (irregular heartbeat), Uncontrolled pain Home Medications: Medications to take at Discharge Apixaban [Eliquis] 5 mg PO BID #60 tab 09/23/18 Primary Care Physician: Mikey Diamond MD [STAFF PHYSICIAN] - Please follow up with your Primary Care Physician in: 1 WEEK. Please Follow Up With: Jacob Reyes Chi, MD Please Follow Up With: Juani Berger MD When: 2 WEEKS. Disposition: Home Minutes spent on discharge:: 33 Patient Condition:: Stable Medical Necessity - Tobacco Use Smoking Status: Never smoker Meaningful Use Info Meaningful Use Diagnoses (Choose all that apply): None applicable Code Visit Inpatient E&M: 98534 Disch Hosp
--- NOTE | 2019-08-06 12:54 | PN.ID_ITS ---
Patient Problems: Active and Suspected Problems (Last Updated 08/04/19 @ 09:14 by Kamryn Prince MD) Altered mental status (Acute) Brain edema (Acute) Subjective: Feeling better, no fever, no headache, no double vision - Physical Exam Vitals/I&O's: Vital Signs Temp Pulse Resp BP Pulse Ox 98.2 F 58 L 18 144/69 H 99 08/06/19 08:23 08/06/19 08:23 08/06/19 08:23 08/06/19 08:23 08/06/19 08:23 Oxygen Delivery Method Room Air Weight: 48 kg Body Mass Index (BMI) 18.7 Intake and Output for Last 24 Hours 08/04/19 08/05/19 08/06/19 23:59 23:59 23:59 Intake Total 1606.67 / 1606.67 600 / 600 60 / 60 Balance 1606.67 / 1606.67 600 / 600 60 / 60 General: Alert, Cooperative, No apparent distress Lungs: Clear to auscultation, Normal air movement Cardiovascular: Regular rate, Regular Rhythm Abdomen: Soft, Non Tender, Non-Distended Skin: No rashes Microbiology Past 72 Hours 08/03/19 17:00 Blood Culture (Wb) - Anticubital Right Blood Culture - Preliminary No growth in 48 hours. 08/03/19 16:10 Blood Culture (Wb) - Port Blood Culture - Preliminary No growth in 48 hours. 08/04/19 10:45 Mucosa - Nose Respiratory Panel (PCR) - Final Laboratory Results 08/05/19 04:45: Diff Path Review Reviewed Current Medications Acetaminophen (Tylenol) 650 mg PO Q6H PRN PRN PRN Reason: Pain Score 1-3/Temp > 100.7 F Albuterol Sulfate (Ventolin Aerosols) 2.5 mg INHALATION Q2H PRN PRN PRN Reason: SOB/Wheezing Apixaban (Eliquis) 5 mg PO BID SHRUTHI Last Admin: 08/06/19 08:35 Dose: 5 mg Documented by: Dextrose (D50w Syringe) 0 gm IV X1 PRN; Protocol PRN Reason: Hypoglycemia Glucagon () 1 mg IM .X1 PRN PRN Reason: Hypoglycemia Heparin Sodium (Beef Lung) () 50 units IV UD PRN PRN Reason: R Port Heparin Flush Sodium Chloride () 250 mls @ 15 mls/hr IV .[id number] PRN PRN Reason: Saline Flush Nutritional Formula (Lactose Free) (Ensure Enlive) 120 ml PO 4X/DAY SHRUTHI Last Admin: 08/06/19 08:35 Dose: 120 ml Documented by: Ondansetron HCl (Zofran) 4 mg IV Q8H PRN PRN PRN Reason: NAUSEA/VOMITING Sodium Chloride () 10 - 40 ml IV UD PRN PRN Reason: R Port Saline Flush Last Admin: 08/05/19 04:38 Dose: 30 ml Documented by: Sodium Chloride (0.9% Nacl (Sterile) Posiflush) 10 - 40 ml IV UD PRN PRN Reason: Port access or dressing change Medical Necessity - Tobacco Use Smoking Status: Never smoker Route of nutrition/ use of supplements: [] Nutritional Intake: [] IV Site: [] Ch Catheter: [] - Assessment/Plan Antibiotics: [] Assessment/Plan: [] Active and Suspected Problems (Last Updated 08/04/19 @ 09:14 by Kamryn Prince MD) Altered mental status (Acute) Brain edema (Acute) No evidence of meningitis. Low suspicion for encephalitis; no focal cranial nerve deficits, she is oriented x3, no fever, no headache. Seems most consiste nt with failure to thrive. May be related to cancer/recent chemo/flu shot/pain from what sounds like muscle strain leading to poor po intake, weight loss. Has improved greatly per her family since admit, may be benefiting from IV fluids and steroids. Off abx since 08/04. Ok for d/c home from my perspective. PML is also on the differential diagnosis. Chemo being held, repeat MRI planned. Will follow, neuro and heme
[2019-08-06 13:52] VITALS: BP 135/78; PULSE 65; RESP 18; TEMP 36.8; O2SAT 99
[2019-08-06] MEDS: 0.9% Saline Lock 10 ML Syringe IV (14:04)
--- NOTE | 2019-08-06 15:06 | NURSING ---
Message left for patient to follow up with neurology in 2-4wks per Dr. Prince.
--- NOTE | 2019-08-09 14:58 | CASEMGMT ---
AVE CM DC PHONE CALL DC DATE: 08/06/19 DC Disposition: Home Diagnosis on Discharge: Home LACE/STRATA: 09/08 Attempted call to home phone. No answer and no machine with name identifier. Jasen POSADASN RN ACM
== END 2019-08-06 14:27 | disposition home or self-care (01) | DRG 91 ==
LOC: ED 18:13 → PCU 19:30
PROVIDERS: Emergency Provider Emergency Medicine; Family Provider Family Medicine Geriatric Medicine; PCP Family Medicine Geriatric Medicine; Visit Provider Hospitalist
DX: G92 Toxic encephalopathy (principal); G93.6 Cerebral edema; C82.10 Follicular lymphoma grade II, unspecified site; Z68.1 Body mass index [BMI] 19.9 or less, adult; D70.1 Agranulocytosis secondary to cancer chemotherapy; T45.1X5A Adverse effect of antineoplastic and immunosuppressive drugs, initial encounter; R62.7 Adult failure to thrive; I10 Essential (primary) hypertension; Z86.711 Personal history of pulmonary embolism; Z79.01 Long term (current) use of anticoagulants; Z86.718 Personal history of other venous thrombosis and embolism; Z79.899 Other long term (current) drug therapy; K58.9 Irritable bowel syndrome, unspecified; R63.4 Abnormal weight loss
CPT/HCPCS: 36591; 70450; 70553; 73502; 80048; 80053; 81001; 83605; 84443; 85025; 85610; 87040; 87633; 92610; 97162; 97166; 97530; 97802; 99285; A9575; J7030; J7050; A4216; J0696

== ENCOUNTER → 2019-08-31 11:48 | Outpatient (CLI) | payer MEDICARE, OTHER, SELFPAY ==
[2019-08-11 13:01] VITALS: BMI 20.7
== END ==
PROVIDERS: Family Provider Internal Medicine; PCP Internal Medicine; Referring Provider Psychiatry & Neurology Neurology; Visit Provider Psychiatry & Neurology Neurology
DX: A81.2 Progressive multifocal leukoencephalopathy (principal)
CPT/HCPCS: 36415

== ENCOUNTER → 2019-09-13 14:21 | Outpatient (CLI) | payer MEDICARE, OTHER, SELFPAY ==
[2019-08-11 13:01] VITALS: BMI 20.7
[2019-09-13 11:36] VITALS: BMI 20.1
--- NOTE | 2019-09-13 14:38 | MRI_ITS ---
STUDY: MRI BRAIN WITH AND WITHOUT CONTRAST REASON FOR EXAM: Female, 74 years old. Encephalopathy, brain MRI follow-up, history of lymphoma and chemotherapy in 2018 TECHNIQUE: Standardized multiplanar fat and water weighted pulse sequences were obtained. 10cc dotarm via port was administered for the contrast portion of the examination. COMPARISON: 08/06/2019 FINDINGS: Normal size of the ventricles and extra-axial spaces for the patient''s age. When compared to prior study, there has been overall progression of abnormal signal within several regions of the brain. Specifically, diffuse T2 hyperintensity is now noted in the white matter of the bilateral cerebellar hemispheres, as well as throughout the bilateral frontal and parietal cortices. These findings are new compared to prior study. A 1 cm ovoid focus of abnormal signal is now noted in the right brachium pontis, new from prior study. Abnormal signal previously present in the basal ganglia and brainstem has improved somewhat. Of note, none of the areas of abnormal T2 hyperintensity are associated with restricted diffusion or abnormal enhancement at this time. Differential includes osmotic demyelination syndrome, autoimmune demyelinating disease, changes of toxic encephalopathy, atypical/viral encephalitis and changes related to prior chemotherapy. There is no extra-axial fluid accumulation. Normal flow voids within the major intracranial circulation suggesting patency by spin echo criteria. Normal venous enhancement. There is no enhancing intra-axial or extra-axial abnormality. Normal sella turcica, pituitary gland, infundibular stalk, optic chiasm and hypothalamus. Normal tectal plate and pineal gland. Normal basal cisterns. Normal bilateral temporal bones. Normal bilateral internal auditory canals. No demonstrated orbital abnormality, within the constraints of a routine brain study. Normal visualized paranasal sinuses. Normal calvarium and skull base. Normal visualized soft tissue structures. Normal visualized upper cervical spine. MRI/Brain W/WO Contrast IMPRESSION: Although signal normalities in the basal ganglia and brainstem have improved compared to prior study, new and progressing abnormalities are noted in the cerebellum, right brachium pontis, and frontal and parietal cortices. No associated restricted diffusion or abnormal enhancement. Differential includes osmotic demyelination syndrome, autoimmune demyelinating disease, changes of toxic encephalopathy, atypical/viral encephalitis, and changes related to prior chemotherapy. If not already obtained, neurology consultation and CSF analysis may be indicated. Electronically Signed: Tobi Lezama MD at 16:51 EST Tel , Service support ,
== END ==
PROVIDERS: Family Provider Family Medicine Geriatric Medicine; PCP Family Medicine Geriatric Medicine; Referring Provider Psychiatry & Neurology Neurology; Visit Provider Psychiatry & Neurology Neurology
DX: G93.40 Encephalopathy, unspecified (principal); R94.02 Abnormal brain scan
CPT/HCPCS: 36591; 70553; 80053; 83615; 85025; A4216

== ENCOUNTER 2019-09-17 11:30 | Outpatient (RCR) | payer MEDICARE, OTHER, SELFPAY ==
[2019-08-11 13:01] VITALS: BMI 20.7
--- NOTE | 2019-09-09 13:35 | HP.PTEVAL_ITS ---
Patient's Visit Information NINFA SAM is a 74 year old F referred to Physical Therapy by Lolly Lazaro MD with a diagnosis of WEAKNESS. Date of Evaluation: 09/09/19 Physical Therapist: Arabella Hathaway PT, Cert MDT - Visit Plan Frequency: 2-3x /Week Duration: 4-6 Weeks Plan: MONITOR RIGHT LE PAIN. TRUNK AND TASIA LE ROM, STRETCHING AND STRENGTHENING. GAIT AND BALANCE TRAINING. HEP INSTRUCTION. - Subjective Findings: Work/Leisure: RETIRED. Disability: NO. Present symptoms: RIGHT LE PAIN. PATIENT REPORTS THAT BASICALLY HER WHOLE LEG HURTS. WEAKNESS. Present since: IN MAY STARTED LOSING WEIGHT AND GOING BACKWARDS. PRIOR TO MAY SHE WAS DOING A LOT BETTER. ONSET RIGHT LE PAIN SEP 2018. Pain Scale: WORST 5/10, LEAST 2/10. Currently: 5/10. Commenced as a result of: BLOOD CLOTS DX 'D IN SEP 2018 WITH CANCER. Symptoms at onset: RIGHT LEG PAIN. Worse: TYING TO MOVE RIGHT LE. STANDING AND WALKING. Better: MOVING SHORT DISTANCES. TYLONOL. Disturbed sleep: NO. Previous history/Previous treatment: RIGHT LEG PAIN FOR A YEAR NOW THAT WORSENED IN MAY 2019 AFTER A ROUND OF CHEMO AND THE FLU SHOT. Gait: SLOW GAIT WITHOUT AD. NO FALLS. Accidents: UNREMARKABLE. Unexplained weight loss: YES - DOCTORS ARE AWARE. Imaging: NO RECENT RIGHT LE IMAGING THAT PATIENT OR ARE AWARE OF. PMH: IN [facility] UNTIL CANCER DX A YEAR AGO. Recent major surgery: NHL CANCER DX'D ABOUT ONE YEAR AGO. OTHER: PATIENT HAD A FEW SESSIONS OF PT IN THE HOSPITAL BUT OTHERWISE NO HISTORY WITH PHYSICAL THERPAY. - Objective Sitting/Standing Posture: POOR. SCOLIOTIC POSTURE WITH RIGHT HIP HIGHER THAN LEFT. Lordosis: REDUCED. Active Correction of posture: NE. PATIENT IS ONLY ABLE TO PARTIALLY CORRECT AND UNABLE TO MAINTAIN. Other Observations: INDEP GAIT INTO PT WITH HER . GAIT IS VERY SLOW WITH VERY SMALL STEPS AND NO TRUNK ROTATION. SHE IS UNABLE TO TRANSFER FROM SIT TO STAND WITHOUT UE ASSIST. SHE IS ABLE TO SLS ON THE LLE X APPROX 8 SEC AND RIGHT LE 3 SEC WITHOUT UE ASSIST. PATIENT IS ABLE TO AMBULATE ABOUT 300 FEET BEFORE NEEDING TO REST. SHE EXTERNALLY ROTATES HER RIGHT LE IN STANDING AND WALKING. Motor deficit: SUSY Harrell HAS GENERALIZED WEAKNESS AND IS VERY DECONDITIONED. LE STRENGTH IS GROSSLY 3+ TO 4-/5 WITH MMT'ING. Sensory deficit: TASIA LE LIGHT TOUCH SENSATION IS INTACT AND SYMMETRICAL. ROM deficit: TASIA LE TIGHTNESS THROUGHOUT. RIGHT KNEE EXTENSION MORE LIMITED THAN LEFT. Reflexes: NT. Dural Signs: NEGATIVE. Lumbar mvmt loss: flex - MOD. ext - SACHIN. R SG - SACHIN. L SG - SACHIN. Core strength: POOR - Goals Goal 1:: INDEP AND SAFE GAIT ON ALL SURFACES WITH LEAST DEVIATIONS AND ASSISTIVE DEVICES Goal Time Frame: 4-6 Weeks Goal 2:: INCREASE GENERAL STRENGTH AND STAMINA TO EASE ADL'S. Goal Time Frame: 4-6 Weeks Goal 3:: INDEP HEP FOR CONTINUED IMPROVEMENT ONCE FORMAL PHYSICAL THERPAY CONCLUDES. Goal Time Frame: 4-6 Weeks - Rehabilitation Potential Rehabilitation Potential: Fair - Anticipated Interventions Patient/Client Instruction: Educate patient on: Condition, Plan of Care, Risk Factors, Benefits of Fitness Program For the Purpose of:: To improve self management Therapeutic Exercise to Include: Strength training, Endurance training, Balance training, Postural training, Flexibilty training, Gait and locomotor training For the Purpose of:: To improve muscle performance and motor function, To increase tolerance to activity/condition/position, To improve ability of physic al actions for home/community/work/leisure, To improve gait and locomotor functions Thank you for the opportunity to evaluate your patient. For Medicare and Medicare HMO plans, please review the plan of care and approve it. It will need to be FAXED BACK to us at [phone] for Medicare purposes. For Medicare only, by signing this I certify the plan of care. Please let me know if there are questions or concerns regarding this plan of care. Physician Signature: Date:
--- NOTE | 2019-11-17 17:42 | HP.PT.NRP ---
HP - Discharge Summary (1) - Patient Information NINFA SAM was seen in my office for initial evaluation on 09/09/19. The following Plan of Care was established for this patient: Initial Frequency: 2-3x /Week Initial Duration: 4-6 Weeks - Anticipated Interventions Patient/Client Instruction: Educate patient on: Condition, Plan of Care, Risk Factors, Benefits of Fitness Program For the Purpose of:: To improve self management Therapeutic Exercise to Include: Strength training, Endurance training, Balance training, Postural training, Flexibilty training, Gait and locomotor training For the Purpose of:: To improve muscle performance and motor function, To increase tolerance to activity/condition/position, To improve ability of physical actions for home/community/work/leisure, To improve gait and locomotor functions This patient was last seen in our office 09/17/19. Pertinent comments regarding their Physical therapy will appear below: This patient has not returned to Physical Therapy and is appropriate to return to MD for further follow-up as needed. At this point I will be discontinuing this patient from physical therapy. I would be happy to see this patient again in the future if found appropriate by the physician. Thank you! Arabella Hathaway, PT, Cert MDT
== END 2019-09-17 19:00 | disposition home or self-care (01) ==
LOC: PT 11:30
PROVIDERS: Family Provider Family Medicine Geriatric Medicine; PCP Family Medicine Geriatric Medicine; Referring Provider Psychiatry & Neurology Neurology; Visit Provider Psychiatry & Neurology Neurology
DX: R53.1 Weakness (principal)
CPT/HCPCS: 97162; 97530

== ENCOUNTER → 2019-09-22 13:54 | Outpatient (CLI) | payer MEDICARE, OTHER, SELFPAY ==
[2019-09-13 11:36] VITALS: BMI 20.1
--- NOTE | 2019-09-22 13:56 | CT_ITS ---
STUDY: CT SOFT TISSUE NECK WITH CONTRAST REASON FOR EXAM: Female, 74 years old. Restaging follicular lymphoma. RADIATION DOSAGE (If Supplied By Facility): CTDIvol = ( 10.40 ) mGy, DLP = ( 1004.19 ) mGycm TECHNIQUE: The patient was scanned in a multi-detector CT scanner. High resolution transaxial imaging was performed following intravenous administration of 100 ML ISOVUE 370. Sagittal and coronal images were reconstructed. Individualized dose optimization techniques were used for this CT. COMPARISON: 12/23/2018 CT neck. FINDINGS: Normal bilateral parotid glands. 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 Normal bilateral parapharyngeal spaces. Normal bilateral carotid spaces. Normal bilateral sublingual and submandibular glands and spaces. Normal visualized nasopharynx. Normal retropharyngeal space. Normal perivertebral space. Normal visualized bilateral faucial tonsils. The visualized tongue, tongue base and oropharynx are normal. The visualized cervical lymph nodes (levels I-) are within normal size limits, and maintain normal morphology. There is no demonstrated solid or cystic mass lesion. There is no abnormal contrast enhancement. Normal epiglottis, bilateral vallecula and hypopharynx. The pre-epiglottic and paraglottic adipose spaces are normal. Normal visualized bilateral piriform sinuses, aryepiglottic folds, vocal cords, and arytenoid-cricoid articulations. Normal subglottic trachea. Nodule in the right lobe of thyroid gland has increased compared to previous, 1.6 cm today increased from 1.0 cm on the previous study. This has predominantly low density but with regions of soft tissue density and a coarse calcification posteriorly. Mild pleural scarring lung apices. Normal visualized paranasal sinuses. Mild degenerative changes cervical spine. No aggressive osseous lesions. CT/Soft Tissue Neck WITH Contrast IMPRESSION: No evidence of lymphoma in the neck. Electronically Signed: Luke Adler, at 23:33 EST Tel , Service support ,
--- NOTE | 2019-09-22 13:56 | CT_ITS ---
STUDY: CT ABDOMEN AND PELVIS WITH CONTRAST REASON FOR EXAM: Female, 74 years old. Restaging follicular lymphoma. TECHNIQUE: Transaxial images were obtained from the dome of the diaphragm to the symphysis pubis without oral contrast. 100 ML ISOVUE 370 was administered. Sagittal and coronal images were reconstructed. Individualized dose optimization techniques were used for this CT. COMPARISON: 02/22/2019 CT abdomen and pelvis. 09/28/2018 PET/CT. FINDINGS: Lymph nodes: Continued decrease in size of small residual para-aortic lymph nodes in the upper abdomen and mid and lower abdomen. Scattered subcentimeter residual lymph nodes and mild posttreatment stranding are noted. Partially visualized lower chest: Lung bases unremarkable. Liver: No concerning lesions. Incidental low-density lesions right lobe, unchanged. Gallbladder and biliary tree: No visible gallstones. No pericholecystic inflammation. No biliary ductal dilation. Pancreas: No pancreatic lesions or inflammation. Spleen: Upper normal in size, unchanged. No splenic lesions are evident. Adrenal glands: No concerning masses. Kidneys and ureters: No hydronephrosis or renal stones. No concerning masses. No ureteral dilation. The mild right hydronephrosis seen on the previous study has resolved. Incidental subcentimeter low-density lesion posterior cortex midpole right kidney. Bowel: Normal appendix. No obstruction or inflammation of the bowel. Sigmoid colon diverticulosis, no diverticulitis. Urinary bladder: No stones or wall thickening. Reproductive: Simple 7.2 cm diameter cyst extending from the right adnexa and to the anterior upper pelvis, not significantly changed. Uterus and left ovary unremarkable. Vascular: No abdominal aortic aneurysm. Moderate atherosclerosis. Retroperitoneal and peritoneal spaces: No free fluid or free air. Osseous: No acute osseous abnormality. No aggressive osseous lesions. Mild right scoliosis and degenerative changes lumbar spine again demonstrated. Abdominal and pelvic wall: No concerning findings. CT/Abdomen/Pelvis W IV Cont ONLY IMPRESSION: No concerning interval change. Continued decrease in size of small residual para-aortic lymph nodes in the upper abdomen and mid and lower abdomen with mild adjacent posttreatment stranding. 7.2 cm diameter simple right adnexal cystic mass unchanged. Electronically Signed: Luke Adler, at 23:44 EST Tel , Service support ,
--- NOTE | 2019-09-22 13:56 | CT_ITS ---
STUDY: CT CHEST WITH CONTRAST REASON FOR EXAM: Female, 74 years old. Restaging follicular lymphoma. RADIATION DOSAGE (If Supplied By Facility): CTDIvol = ( 10.40 ) mGy, DLP = ( 1004.19 ) mGycm TECHNIQUE: Transaxial imaging was performed following intravenous administration of 100 ML ISOVUE 370.. Individualized dose optimization techniques were used for this CT. COMPARISON: 12/23/2018 CT chest.. FINDINGS: Lymph nodes: No lymphadenopathy. Calcified paratracheal and left hilar lymph nodes again demonstrated. No axillary or supraclavicular or mediastinal or hilar adenopathy. Heart and great vessels: Heart size normal. No dissection or aneurysm of the thoracic aorta. Right-sided port, catheter tip near the caval atrial junction. Lungs, pleura: Interval development of a 1.9 x 1.3 cm TRV X AP oval soft tissue density nodular lesion in the posterior segment of the upper lobe of the right lung, abutting the pleura at the level of the right fifth rib posteriorly, series 8 image 34. Cluster of small tree-in-bud nodules in the posterior, central aspect of the right lower lobe, similar to prior. The left lung is clear. The left pleural effusion seen on the previous study has resolved. No pneumothorax. Central airways patent. Mediastinum: Mixed attenuation nodule in the right lobe of the thyroid gland similar to previous. Osseous: No fracture or acute osseous abnormality. No aggressive osseous lesions. Chest wall: No concerning findings. Upper abdomen: No acute findings. CT/Chest WITH Contrast IMPRESSION: No lymphadenopathy. Interval development of a 1.9 cm in greatest dimension soft tissue density nodular lesion in the posterior segment of the upper lobe of the right lung. Given the lack of adenopathy, this is unlikely to represent lymphoma. However other neoplasm or atypical pneumonia are both possible. Electronically Signed: Luke Adler, at 0:17 EST Tel , Service support ,
== END ==
PROVIDERS: Family Provider Family Medicine Geriatric Medicine; PCP Family Medicine Geriatric Medicine; Referring Provider Internal Medicine Hematology & Oncology; Visit Provider Internal Medicine Hematology & Oncology
DX: C82.10 Follicular lymphoma grade II, unspecified site (principal); R19.00 Intra-abdominal and pelvic swelling, mass and lump, unspecified site; R63.4 Abnormal weight loss
CPT/HCPCS: 70491; 71260; 74177; Q9967; A4216

== ENCOUNTER → 2019-10-01 10:29 | Outpatient (CLI) | payer MEDICARE, OTHER, SELFPAY ==
[2019-09-13 11:36] VITALS: BMI 20.1
[2019-10-01 12:22] LABS: Absolute Lymphocyte Count 0.65 X10^3/uL (0.83-4.51); Absolute Neutrophil Count 2.2 X10^3/uL (2.0-7.7); Basophil# 0.03 X10^3/uL; Basophil% 0.8 % (0-1); Eosinophil# 0.05 X10^3/uL; Eosinophils% 1.3 % (0-5); Hematocrit 37.4 % (37-47); Hemoglobin 12.6 g/dL (12.0-15.0); Lymphocyte # 0.65 X10^3/ul (4.0); Lymphocyte % 17.4 % (19-41); Mean Corp Hgb Conc 33.7 g/dL (32-36); Mean Corpuscular Hgb 30.1 pg (27.0-32.0); Mean Corpuscular Volume 89.3 fL (81-99); Mean Platelet Vol. 10.4 fl (6.2-12.0); Monocyte# 0.74 X10^3/uL; Monocyte% 19.8 % (0-10); NRBC Flagged by Analyzer 0 % (0-5); Neutrophil # 2.15 X10^3/uL (2.7-7.7); Neutrophil % 57.8 % (47-70); Platelet Count 280 K/mm3 (150-450); RBC Distribution Width SD 48.3 fl (35.1-43.9); Red Blood Count 4.19 M/mm3 (4.2-5.4); White Blood Count 3.7 K/mm3 (4.4-11.0)
[2019-10-01 12:34] LABS: Vitamin D,25 Hydroxy 12.8 ng/mL (29.95-100.01)
[2019-10-01 12:46] LABS: ALB/GLOB Ratio 1.2 RATIO (0.9-2.4); AST(SGOT) 20 U/L (15-37); Alanine Aminotransfer ALT/SGPT 20 U/L (13-56); Albumin, Serum 3.6 g/dL (3.2-5.0); Alkaline Phosphatase 95 U/L (45-117); Anion Gap 6 (5-15); BUN 18 mg/dL (7-18); BUN/Creat Ratio 20.4 RATIO (10-20); Chloride 104 mmol/L (98-107); Creatinine, Serum 0.88 mg/dL (0.55-1.02); EST Glomerular Filtration Rate 66 mL/min (>60); Est Glom Filt Rate - Afr Amer 80 mL/min (>60); Globulin 3.1 g/dL (2.2-4.2); Glucose 95 mg/dL (74-106); Potassium 3.5 mmol/L (3.5-5.1); Protein, Total 6.7 g/dL (6.4-8.2); Sodium Level 141 mmol/L (136-145)
== END ==
PROVIDERS: Family Provider Family Medicine Geriatric Medicine; PCP Family Medicine Geriatric Medicine; Visit Provider Family Medicine Geriatric Medicine
DX: E55.9 Vitamin D deficiency, unspecified (principal); R53.83 Other fatigue
CPT/HCPCS: 36415; 80053; 82306; 84443; 85025

== ENCOUNTER 2019-10-15 09:21 | Emergency (ER) | payer MEDICARE, OTHER, SELFPAY ==
[2019-10-11 11:09] VITALS: BMI 19.2
[2019-10-15] VITALS (13 sets, daily range): BP systolic 144–183; BP diastolic 64–98; PULSE 64–94; RESP 14–21; TEMP 36.9; O2SAT 93–99; BMI 177.8; BMI 17.7
[2019-10-15 09:36] LABS: Bedside Glucose 113 mg/dL (70-110)
--- NOTE | 2019-10-15 09:37 | CT_ITS ---
STUDY: CT BRAIN WITHOUT CONTRAST REASON FOR EXAM: Female, 74 years old. LEFT SIDED FACIAL DROOP X 2 DAYS RADIATION DOSAGE (If Supplied By Facility): CTDIvol = ( 44.99 ) mGy, DLP = ( 711.75 ) mGycm TECHNIQUE: Transaxial CT imaging of the brain was performed without administration of intravenous contrast material. Individualized dose optimization techniques were used for this CT. COMPARISON: Comparison is made with prior examination dated August 03, 2019. FINDINGS: Normal soft tissue structures. Normal calvarium. There is mild cerebral atrophy with widening of the extra-axial spaces and ventricular dilatation. There are areas of decreased attenuation within the white matter tracts of the supratentorial brain, consistent with microvascular disease changes. Normal basal ganglia and thalami. Normal brainstem. Normal cerebellum. There is no intracranial hemorrhage. There are no findings of an acute ischemic infarction. Normal visualized paranasal sinuses. CT/Brain/Head without Contrast IMPRESSION: Chronic involutional changes of the brain. Electronically Signed: Chris Alfaro, at 10:10 EST , Service support ,
--- NOTE | 2019-10-15 09:37 | RAD_ITS ---
STUDY: X-RAY CHEST REASON FOR EXAM: Female, 74 years old. Stroke sx TECHNIQUE: Single AP portable view of the chest. COMPARISON: Comparison is made with prior study dated April 01, 2019. FINDINGS: EKG electrodes are seen. A right-sided portacatheter is in situ and the tip is at the junction of the superior vena cava and right atrium. Hyperinflation. Scattered calcified granulomas. There is no demonstrated pleural abnormality. Normal size heart. Normal mediastinum and marco. Normal visualized pulmonary arteries. There is atherosclerotic calcification of the aortic arch with tortuosity. Normal visualized thoracic spine. Normal visualized ribs, clavicles, and shoulders. There is no demonstrated abnormality of the visualized soft tissue structures of the upper abdomen. RAD/Chest 1 View IMPRESSION: Hyperinflation. The lungs are clear. Electronically Signed: Chris Alfaro, at 10:45 EST , Service support ,
--- NOTE | 2019-10-15 09:37 | EKG12_ITS ---
Test Reason : NEURO Blood Pressure : / mmHG Vent. Rate : 086 BPM Atrial Rate : 086 BPM P-R Int : 136 ms QRS Dur : 090 ms QT Int : 366 ms P-R-T Axes : 057 060 054 degrees QTc Int : 437 ms Normal sinus rhythm with sinus arrhythmia Anterior infarct , age undetermined Abnormal ECG Confirmed by LORETA ALEX, MELIDA ([id number]), slot editor CHARISMA STEVENSON ([id number]) on 10/18/2019 10:21:31 AM Referred By: JASBIR Confirmed By:MELIDA KAN MD
[2019-10-15 10:45] LABS: Absolute Lymphocyte Count 0.42 X10^3/uL (0.83-4.51); Absolute Neutrophil Count 3.5 X10^3/uL (2.0-7.7); Basophil# 0.01 X10^3/uL; Basophil% 0.2 % (0-1); Eosinophil# 0.04 X10^3/uL; Eosinophils% 0.9 % (0-5); Hematocrit 38.3 % (37-47); Hemoglobin 12.9 g/dL (12.0-15.0); Lymphocyte # 0.42 X10^3/ul (4.0); Lymphocyte % 9.2 % (19-41); Mean Corp Hgb Conc 33.7 g/dL (32-36); Mean Corpuscular Volume 89.1 fL (81-99); Mean Platelet Vol. 9.9 fl (6.2-12.0); Monocyte# 0.58 X10^3/uL; Monocyte% 12.7 % (0-10); NRBC Flagged by Analyzer 0 % (0-5); Neutrophil # 3.45 X10^3/uL (2.7-7.7); Neutrophil % 75.3 % (47-70); POSITIVE DIFFERENTIAL YES; Platelet Count 201 K/mm3 (150-450); RBC Distribution Width CV 13.9 % (11.6-14.6); RBC Distribution Width SD 45.1 fl (35.1-43.9); White Blood Count 4.6 K/mm3 (4.4-11.0)
[2019-10-15 10:49] LABS: International Normalized Ratio 1.7; Prothrombin Time (Protime)PT. 19.9 SECONDS (11.7-14.9)
[2019-10-15 10:50] LABS: Partial Thromboplast Time 53.4 Seconds (24.1-36.2)
[2019-10-15 10:51] LABS: Differential Indicated SCAN CRITERIA MET
[2019-10-15 10:55] LABS: Anion Gap 4 (5-15); BUN 22 mg/dL (7-18); BUN/Creat Ratio 25.1 RATIO (10-20); Calcium,Total 9.3 mg/dL (8.5-10.1); Chloride 104 mmol/L (98-107); Creatinine, Serum 0.88 mg/dL (0.55-1.02); EST Glomerular Filtration Rate 67 mL/min (>60); Est Glom Filt Rate - Afr Amer 81 mL/min (>60); Estimated Creatinine Clearance 39.05 ml/min; Glucose 98 mg/dL (74-106); Potassium 3.2 mmol/L (3.5-5.1); Sodium Level 141 mmol/L (136-145)
[2019-10-15] MEDS: 0.9% Normal Saline 1,000 ML 100 ML IV (11:04)
--- NOTE | 2019-10-15 11:43 | NURSING ---
CALLED [facility]. PATIENT TRANSFER TO [place]
--- NOTE | 2019-10-15 12:56 | CT_ITS ---
STUDY: CTA HEAD AND NECK WITH CONTRAST REASON FOR EXAM: Female, 74 years old. Stroke, left facial droop x 2 days. Hx follicular lymphoma. RADIATION DOSAGE (If Supplied By Facility): CTDIvol = ( 12.92 ) mGy, DLP = ( 502.64 ) mGycm TECHNIQUE: CT angiography was performed with a multi-detector CT scanner. Data acquisition was obtained from the skull base through the vertex following intravenous administration of 75mL Isovue 370. MIP images were reconstructed from the axial data set. Post-processing of the angiographic images was performed, with multiplanar reformation and 3D reconstruction. Individualized dose optimization techniques were used for this CT. COMPARISON: No relevant priors. FINDINGS: Normal bilateral petrous carotid arteries. There is calcified plaque formation of the right cavernous carotid artery, without a cross-sectional luminal stenosis. There is calcified plaque formation of the left cavernous carotid artery, without a cross-sectional luminal stenosis. Normal right A1 segments of the anterior cerebral artery. Normal left A1 segments of the anterior cerebral artery. Normal intact anterior communicating artery (ACOM). Normal bilateral A2 segments of the anterior cerebral arteries. Normal right M1 and M2 segments of the middle cerebral arteries, with a normal M1 bifurcation. Normal left M1 and M2 segments of the middle cerebral arteries, with a normal M1 bifurcation. Normal right posterior communicating artery (PCOM). Normal left posterior communicating artery (PCOM). Normal bilateral vertebral arteries. Normal basilar artery with a normal basilar bifurcation. The visualized bilateral superior cerebellar (SCA) arteries are normal. Normal bilateral P1, P2 and visualized P3 segments of the posterior cerebral arteries. There is no demonstrated aneurysm of the [place]. There is no demonstrated abnormality of the visualized brain. There is a 1.4 sign of by 0.9 cm hypodense nodule in the lower pole of the right lobe of the thyroid. AORTIC ARCH: There is atherosclerotic calcific plaque formation of the aortic arch and great vessels arising from the aortic arch, without a hemodynamically significant stenosis. There is a normal origin of the brachiocephalic, left common carotid, and left subclavian arteries. RIGHT CAROTID ARTERIES: Normal right common carotid artery (CCA). Normal right common carotid bulb. Normal origin of the right internal carotid (ICA) artery without a hemodynamically significant stenosis. Normal visualized cervical portion of the right internal carotid artery. Normal origin of the right external carotid artery (ECA). LEFT CAROTID ARTERIES: Normal left common carotid artery (CCA). Normal left common carotid bulb. Normal origin of the left internal carotid (ICA) artery without a hemodynamically significant stenosis. Normal visualized cervical portion of the left internal carotid artery. Normal origin of the left external carotid artery (ECA). VERTEBRAL ARTERIES: There is enhancement within the bilateral vertebral arteries with a small left vertebral artery, and a dominant right vertebral artery. CT/CTA Head AND Neck W/ Contrast IMPRESSION: Normal CTA Head and neck with contrast. Electronically Signed: Chris Alfaro, at 14:01 EST , Service support ,
--- NOTE | 2019-10-15 15:13 | ED.VISSUMM ---
- ER Visit Summary Date of Service: 10/15/19 Chief Complaint: Weakness and facial droop History of Present Illness: The patient is a [address] Reyes and Dr. Berger. Patient has a history of follicular lymphoma and was found to have an abnormal MRI in August and this was repeated in September and is actually progressed. She has an appointment to see Dr. Hernandez for repeat MRI and EEG at [facility] 4 days. Family reports that she was in her normal state of health when she went to bed at 830 last night. They woke up at 730 this morning and she has an obvious left facial droop. She is unable to close her left eye. She has weakness in her left arm. She is unable to lift her left leg. No difficulty with her speech. Family states that she has had difficulty swallowing for the past 2 days and has been choking on food. Patient reports she has blurred vision from her left eye. Patient denies any fever, chills, cough, or shortness of breath. Physical Examination: Vitals: Stable. Afebrile. General: Well-nourished and well-developed. Head: Normocephalic atraumatic. Neck: Supple, no lymphadenopathy. No JVD. Nontender. Cardiovascular: Regular rate and rhythm. No murmurs. Respiratory: No respiratory distress. Clear to auscultation bilaterally. Abdominal: Soft, nontender, nondistended, normal bowel sounds. No guarding, rebound, or peritoneal signs. Back: Nontender. Extremities: Nontender, no edema. Skin: Normal color, no rash. Neurologic: Alert and oriented ?3. NIH scale is 8. Patient is unable to close her left eye. She has a profound left facial droop. She is unable to lift her left leg off the bed. She has paresthesias to her left leg as well. Psych: Normal affect. Test Results: EKG is sinus at 86 with anterior Q waves. Troponin is negative. INR is 1.7. PTT is 53.4. Chem-7 shows a potassium of 3.2, CO2 33, BUN of 22. CBC shows 7 neutrophils 75 and lymphocytes of 9. Clinical Impression(s) from Imaging Studies Brain CT 10/15/19 09:37 IMPRESSION: Chronic involutional changes of the brain. Electronically Signed: Chris Alfaro, at 10:10 EST , Service support , Chest X-Ray 10/15/19 09:37 IMPRESSION: Hyperinflation. The lungs are clear. Electronically Signed: Chris Alfaro, at 10:45 EST , Service support , Head/Neck CTA 10/15/19 12:56 IMPRESSION: Normal CTA Head and neck with contrast. Electronically Signed: Chris Alfaro, at 14:01 EST , Service support , Emergency Department Course and Treatment: The MRI that the patient had last months shows new and progressing abnormalities in the cerebellum, right brachium pontis, and frontal/parietal cortices. The patient has a wake-up stroke. It is unclear when this began. She is on Eliquis. She is not a TPA candidate because of these things. The patient had a patch placed over her left eye after it was closed. She is resting comfortably. She failed a swallow study in the emergency department. Treatment Plan: I had a prolonged discussion the patient and her family about treatment options. She was supposed to see a neurologist at [facility] in 4 days already. I feel that transfer to a tertiary care center for further evaluation and treatment is in her best interest. They agree with this. She was discussed with Dr. Diamond [facility] who is accepted her in transfer. Disposition: Transferred in serious condition. Impression: 1. Stroke. 2. Coagulopathy on Eliquis. 3. Abnormal MRI August 2019, September 2019. This note was generated with Lemonwiseation software. It may contain incorrect words, spelling, and punctuation that were not noted in review of the chart prior to signing ED Disposition - Plan for ED Patient: Referrals: Jacob Reyes Chi, MD [Primary Care Provider] -
--- NOTE | 2019-10-15 16:43 | NURSING ---
[place] [facility] [id number] NURSE TO NURSE [phone]
--- NOTE | 2019-10-15 17:19 | NURSING ---
CALLED [facility] FOR TRANSPORT. ETA IS 45 MIN
== END 2019-10-15 18:42 | disposition short-term general hospital (02) ==
LOC: ED 10:13
PROVIDERS: Emergency Provider Emergency Medicine; Family Provider Family Medicine Geriatric Medicine; PCP Family Medicine Geriatric Medicine
DX: I63.9 Cerebral infarction, unspecified (principal); G81.94 Hemiplegia, unspecified affecting left nondominant side; R29.810 Facial weakness; I10 Essential (primary) hypertension; T45.515A Adverse effect of anticoagulants, initial encounter; R93.0 Abnormal findings on diagnostic imaging of skull and head, not elsewhere classified; Z86.718 Personal history of other venous thrombosis and embolism; Z86.711 Personal history of pulmonary embolism; Z79.01 Long term (current) use of anticoagulants
CPT/HCPCS: 36591; 70450; 70496; 70498; 71045; 80048; 82962; 84484; 85025; 85610; 85730; 93005; 96360; 96361; 99285; J7030; Q9967; A4216